=== PATIENT | female | born 2000 | race Caucasian/White ===

== ENCOUNTER 2022-12-08 20:25 | Outpatient (REF) | payer MEDICAID, SELFPAY ==
[2022-12-12 13:08] LABS: Age Gdln ACOG Testing Note (.); IGP, rfx Aptima HPV ASCU Note (.)
== END 2022-12-08 20:26 | disposition home or self-care (01) ==
LOC: LAB 20:25
PROVIDERS: PCP Nurse Practitioner Family; Visit Provider Physician Assistant
DX: Z12.4 Encounter for screening for malignant neoplasm of cervix (principal); Z11.51 Encounter for screening for human papillomavirus (HPV)
CPT/HCPCS: G0145

== ENCOUNTER 2024-01-20 12:35 | Emergency (ER) | payer MEDICAID, SELFPAY ==
[2024-01-20 12:38] VITALS: BP 119/81; PULSE 92; TEMP 36.8; O2SAT 99; BMI 48.8
[2024-01-20 13:04] LABS: Internal Control Within Normal Limits; Strep A Antigen Screen Negative
--- NOTE | 2024-01-20 13:09 | CT_ITS ---
The [address] [address] Patient Name: SAROJ MEMBRENO MRN: [id number] date: 2000 Sex: F Assigned Patient Location: Current Patient Location: Accession/Order Number: [id number] Exam Date: 01/20/2024 14:10 Report Date: 01/20/2024 17:13 At the request of: TWAN DODD Procedure: CT soft tissue neck w con CT NECK with CONTRAST, 01/20/2024. HISTORY: Sore throat. Difficulty swallowing. COMPARISON: None. TECHNIQUE: Postcontrast axial CT images obtained through the neck. Reconstructions obtained in the sagittal and coronal planes. Dose reduction techniques were achieved by using automated exposure control and/or adjustment of mA and/or kV according to patient size and/or use of iterative reconstruction technique. FINDINGS: Visualized intracranial contents unremarkable. Paranasal sinuses clear. Middle ear cavities and mastoid air cells are clear. Final Rail Cutter spaces are normal. Parotid glands normal. Submandibular glands are normal. The tongue and floor of the mouth are normal. Nasopharynx is normal. The tonsils are enlarged bilaterally and have prominent enhancement. No intratonsillar abscess. There is no abscess in the parapharyngeal space or retropharyngeal space. Epiglottis is normal. No laryngeal edema. Vocal cords are symmetric. Thyroid gland normal. Visualized portion of the trachea and esophagus normal. Vascular structures are unremarkable. Multiple mildly enlarged reactive lymph nodes in the upper neck bilaterally. No masses. Cervical spine is unremarkable. CT/CT soft tissue neck w con IMPRESSION: 1. Acute tonsillitis. The tonsils are enlarged bilaterally and have prominent enhancement. 2. There is no abscess. 3. Reactive lymphadenopathy in the upper neck bilaterally. Electronically authenticated by: CHIARA BAUTISTA Date: 01/20/2024 17:13
--- NOTE | 2024-01-20 13:10 | ED.URI1 ---
HPI - URI/Sore Throat General Chief Complaint: Upper Respiratory Infection Stated Complaint: SORE THROAT Time Seen by Provider: 01/20/24 13:05 Source: patient History of Present Illness HPI Narrative: This patient is a 24-year-old female sent to the emergency department from urgent care for evaluation of difficulty swallowing. Patient reports throat swelling, difficulty swallowing since yesterday. No objective fevers, no vomiting or diarrhea. She states she has significant pain with swallowing and has been unable to do so. She states she is not able to swallow her saliva although she is noted being able to speak easily with no drooling or difficulty tolerating her secretions and initial interview. She has not taken any medications. She states she has not had anything to eat or drink today. She is not concerned for . Patient was unable to be examined at urgent care so they sent the patient to the ER. Related Data Home Medications ?Medication ?Instructions ?Recorded ?Confirmed trazodone 50 mg tablet 50 mg PO QPM PRN sleep 01/20/24 01/20/24 Previous Rx's ?Medication ?Instructions ?Recorded ketorolac 10 mg tablet 10 mg PO TID PRN pain #10 tabs 01/20/24 prednisone 20 mg tablet See Rx Instructions .Route 01/20/24 .COMPLEX #12 tabs Allergies Allergy/AdvReac Type Severity Reaction Status Date / Time No Known Drug Allergies Allergy Verified 01/20/24 12:43 Review of Systems ROS Constitutional Denies: fever or chills Ears, nose, mouth, and throat Reports: throat pain; Denies: neck pain or nasal congestion Cardiovascular Denies: chest pain Respiratory Denies: shortness of breath or cough Gastrointestinal Denies: nausea, vomiting or diarrhea Integumentary/Breast Denies: rash Neurological Denies: headache Hematologic/Lymphatic Denies: easy bruising or easy bleeding Exam Narrative Exam Narrative: Gen.: Awake, alert, in no distress Head: Normocephalic, atraumatic ENT: Moist mucous membranes, uvula is midline with airway open and patent. Mild tonsillar edema with left tonsil slightly larger than the right tonsil. No exudate. No trismus or drooling. Respiratory: No respiratory distress Extremities: Moves extremities equally Psych: Normal mood and affect Neuro: No focal neuro deficit Skin: Warm, dry, intact Constitutional Vital Signs, click to edit/add: Last Vital Signs Temp 98.2 F 08/28/24 12:38 Pulse 92 H 01/20/24 12:38 Resp 22 H 01/20/24 12:38 BP 119/81 01/20/24 12:38 Pulse Ox 99 01/20/24 12:38 O2 Del Method Room Air 01/20/24 12:38 Course Vital Signs Vital signs: Vital Signs Temperature 98.2 F 01/20/24 12:38 Pulse Rate 92 H 01/20/24 12:38 Respiratory Rate 22 H 01/20/24 12:38 Blood Pressure 119/81 01/20/24 12:38 Pulse Oximetry 99 01/20/24 12:38 Oxygen Delivery Method Room Air 01/20/24 12:38 Temperature 98.2 F 01/20/24 12:38 Pulse Rate 92 H 01/20/24 12:38 Respiratory Rate 22 H 01/20/24 12:38 Blood Pressure 119/81 01/20/24 12:38 Pulse Oximetry 99 01/20/24 12:38 Oxygen Delivery Method Room Air 01/20/24 12:38 MDM - URI/Sore Throat MDM Narrative Medical decision making narrative: Patient with a benign exam, exam is consistent with tonsillitis, as the patient is stating that she cannot tolerate her secretions or swallow, she was sent for CT showing tonsillitis with no evidence of abscess. Patient with leukocytosis, negative strep screen and negative monoscreen. Symptoms have been present for 1 day so we will avoid antibiotics at this time until strep culture results. Patient placed on prednisone and BMX solution for home. Patient is in no distress, no evidence of any airway compromise or respiratory difficulty at this time. Follow-up with PCP and return to the ER if symptoms change or worsen. SUPERVISED APC VISIT, PHYSICIAN ATTESTATION: Based on the medical record the care appears appropriate. ? Medical Records Attestation: I reviewed the patient's medical records. Lab Data Attestation: I reviewed the patient's lab results. Labs: Lab Results 01/20/24 01/20/24 Range/Units 12:43 13:15 WBC 15.9 H (4.0-11.0) 10^3/uL RBC 5.25 (4.20-5.40) 10^6/uL Hgb 15.8 (12.0-16.0) g/dL Hct 46.3 (36.0-48.0) % MCV 88.2 (81.0-99.0) fL MCH 30.1 (26.7-34.0) pg MCHC 34.1 (29.9-35.2) g/dL RDW 12.2 (11.0-15.0) % Plt Count 267 (150-450) 10^3/uL MPV 9.6 (9.5-13.5) fL Neut % (Auto) 85.1 H (43.0-75.0) % Lymph % (Auto) 8.3 L (20.5-60.0) % [place] % (Auto) 5.8 (1.7-12.0) % Eos % (Auto) 0.1 L (0.9-7.0) % Baso % (Auto) 0.3 (0.2-2.0) % Neut # (Auto) 13.5 H (1.4-6.5) 10^3/uL Lymph # (Auto) 1.3 (1.2-3.8) 10^3/uL Jasper # (Auto) 0.9 H (0.3-0.8) 10^3/uL Eos # (Auto) 0.0 (0.0-0.7) 10^3/uL Baso # (Auto) 0.1 (0.0-0.1) 10^3/uL Abs Immat Gran (auto) 0.06 H (0.00-0.03) 10^3/uL Imm/Tot Granulo (auto) 0.4 (0.0-0.5) % Monoscreen Negative (NEGATIVE) Streptococcus Screen Negative Imaging Data CT neck: Attestation: I have reviewed the pertinent imaging results. Radiologist's impression: ITS Impressions Soft Tissue Neck CT 01/20/24 13:09 IMPRESSION: 1. Acute tonsillitis. The tonsils are enlarged bilaterally and have prominent enhancement. 2. There is no abscess. 3. Reactive lymphadenopathy in the upper neck bilaterally. Electronically authenticated by: CHIARA BAUTISTA Date: 01/20/2024 14:35 Discharge Plan Discharge Stand Alone Forms: Work/School Release, Portal Instructions Chief Complaint: Upper Respiratory Infection Clinical Impression: Acute tonsillitis Patient Disposition: Home, Self-Care Time of Disposition Decision: 14:38 Condition: Good Prescriptions / Home Meds: New prednisone 20 mg tablet See Rx Instructions .ROUTE .COMPLEX Qty: 12 0RF Rx Instructions: 3 tabs daily for 2 days, then 2 tabs daily for 2 days, then 1 tab daily for 2 days ketorolac 10 mg tablet 10 mg PO TID PRN (Reason: pain) Qty: 10 0RF No Action trazodone 50 mg tablet 50 mg PO QPM PRN (Reason: sleep) Print Language: Ukrainian Instructions: Tonsillitis (ED) Referrals: RICKEY OCHOA [Primary Care Provider] - 1 week
[2024-01-20] MEDS: KETOROLAC TROMETHAMINE 30 MG/ML VIAL IVP (13:28)
[2024-01-20] MEDS: DEXAMETHASONE SOD PHOS 10 MG/ML VIAL IV (13:28)
[2024-01-20] MEDS: 0.9 % SODIUM CHLORIDE 1,000 ML 1000 ML IV (13:28)
[2024-01-20 13:40] LABS: Basophils Absolute Auto 0.1 10^3/uL (0.0-0.1); Basophils Percent Auto 0.3 % (0.2-2.0); Eosinophils Percent Auto 0.1 % (0.9-7.0); Hematocrit 46.3 % (36.0-48.0); Hemoglobin 15.8 g/dL (12.0-16.0); Immature Granulocytes Abs Auto 0.06 10^3/uL (0.00-0.03); Immature Granulocytes Pct Auto 0.4 % (0.0-0.5); Lymphocytes Absolute Auto 1.3 10^3/uL (1.2-3.8); Lymphocytes Percent Auto 8.3 % (20.5-60.0); Mean Corpuscular HGB Conc 34.1 g/dL (29.9-35.2); Mean Corpuscular Hemoglobin 30.1 pg (26.7-34.0); Mean Corpuscular Volume 88.2 fL (81.0-99.0); Mean Platelet Volume 9.6 fL (9.5-13.5); Monocytes Absolute Auto 0.9 10^3/uL (0.3-0.8); Monocytes Percent Auto 5.8 % (1.7-12.0); Neutrophils Absolute Auto 13.5 10^3/uL (1.4-6.5); Neutrophils Percent Auto 85.1 % (43.0-75.0); Platelet Count 267 10^3/uL (150-450); Red Blood Count 5.25 10^6/uL (4.20-5.40); Red Cell Distribution Width 12.2 % (11.0-15.0); White Blood Count 15.9 10^3/uL (4.0-11.0)
[2024-01-20 13:48] LABS: Internal Control Within Normal Limits; Mono Screen NEGATIVE (NEGATIVE)
[2024-01-20 15:07] VITALS: PULSE 78; O2SAT 100
== END 2024-01-20 15:07 | disposition home or self-care (01) ==
PROVIDERS: Physician Assistant; Emergency Provider Emergency Medicine; PCP Nurse Practitioner Family
DX: J03.90 Acute tonsillitis, unspecified (principal)
CPT/HCPCS: 36415; 70491; 85025; 86308; 87070; 87150; 87880; 96374; 96375; 99285; J1100; J1885; Q9967

== ENCOUNTER 2024-05-05 21:11 | Emergency (ER) | payer MEDICAID, SELFPAY ==
--- OUTSIDE RECORDS SUMMARY | 2024-05-05 22:11 | XMS_ITS | CCD ---
Author Organization [facility] Care Team Providers Care Optics Test Technician Name Role Phone Maria R Disla Unavailable Radhika Enrique Unavailable NON STAFF Primary Care Provider [facility] Michelle Hardwick Emergency Provider 1( [phone] FRANCISCO J Enrique Attending Provider MARIA R DISLA Primary Care Unavailable ANTON, DR GUILHERME Blackburn Admitting Unavailable ANTON, DR GUILHERME Blackburn Attending Unavailable EMMA .ONIEL Consulting Unavailable NAIF, MARIA R Primary Care Unavailable SARWAT IVANID Admitting Unavailable WAQAR IVAN Attending Unavailable NAIF, MARIA R Primary Care Unavailable MONCHO, WAQAR Admitting Unavailable MONCHO, WAQAR Attending Unavailable GLO BRANDON Consulting Unavailable MONCHO, WAQAR Consulting Unavailable NAIF, MARIA R Primary Care Unavailable MONCHO, WAQAR Admitting Unavailable WAQAR IVAN Attending Unavailable MONCHO, WAQAR Consulting Unavailable NAIF, MARIA R Primary Care Unavailable PAY ., DR PEARSON Admitting Unavailable PAY ., DR PEARSON Attending Unavailable PAY ., DR PEARSON Consulting Unavailable Naif NGUYỄN, Maria R Unavailable [phone] SASHA XIE Attending Unavailable NEO, ALLIE Referring Unavailable NEO, ALLIE Referring Unavailable SHELLY PARSONS Attending Unavailable FAISAL TOMS Referring Unavailable NETTA DILLARD Attending Unavailable NEO, ALLIE Referring Unavailable NEO ALLIE Attending Unavailable MALONE TOMS Attending Unavailable NEO, ALLIE Referring Unavailable ONIEL CARTER Attending Unavailable NON STAFF Primary Care Provider UnavailISRAEL Torres Attending Provider ISRAEL Christie Attending Provider ISRAEL Alas Attending Provider Glo Alas Attending Unavailable Glo Alas Admitting Unavailable NON STAFF Primary Care Unavailable Manjula Nevarez Admitting Unavailable NON STAFF Primary Care Unavailable Manjula Nevarez Attending Unavailable MARIA R DISLA Attending Unavailable MARIA R DISLA Admitting Unavailable MARZENA MARTINEZ Attending Unavailable MARZENA MARTINEZ Admitting Unavailable MARIA R DISLA Attending Unavailable MARIA R DISLA Admitting Unavailable Medications Current Medications Medication Drug Class(es) Dates Sig (Normalized) Sig (Original) [id number] 200 actuat albuterol 0.09 mg/actuat metered dose inhaler (14 sources) beta2-Adrenergic Agonist Start: 12-25-2020 take 2 puff(s) by inhalation every four hours as needed Albuterol Sulfate HFA 108 (90 Base) MCG/ACT 2 puffs as needed Inhalation every 4 hrs Dec, Active Start: 12-25-2020 take 2 puff(s) by in halation every four hours as needed Albuterol Sulfate HFA 108 (90 Base) MCG/ACT 2 puffs as needed Inhalation every 4 hrs Dec, Active Start: 12-25-2020 amoxicillin 875 mg oral tablet (6 sources) Penicillin-class Antibacterial Start: 03-07-2021 take 1 tablet by mouth every twelve hours Amoxicillin 875 MG 1 tablet Orally every 12 hrs for 7 days Feb, Active ARIPiprazole 5 mg oral tablet (20 sources) Atypical Antipsychotic Start: 02-26-2021 take 1 tablet by mouth every twenty-four hours ARIPiprazole 5 MG 1 tablet Orally Once a day for 30 days Feb, Active Start: 02-26-2021 take 1 tablet by rhona th every twenty-four hours ARIPiprazole 2 MG 1 tablet Orally Once a day for 30 days Feb, Active Comment on above: Take 1 tablet by rhona th once daily. benzoyl peroxide 100 mg/ml medicated liquid soap (9 sources) Start: 023 Benzoyl Peroxide 10 % external wash Apply 1 Application to affected area once daily. 09/22/2022 Active Comment on above: Apply 1 Application to affected area once daily. clindamycin 10 mg/ml topical solution (9 sources) Lincosamide Antibacterial Start: clindamycin (CLEOCIN) 1 % external solution Apply 1 Application to affected area once daily. 10/27/2022 Active Comment on above: Apply 1 Application to affected area once daily. cyclobenzaprine hydrochloride 10 mg oral tablet (20 sources) Muscle Relaxant Start: take 10 mg by mouth once daily Cyclobenzaprine Active 10 MG PO Daily September 16, 2023 12:00am Start: 03-16-2020 take 1 tablet by rhona every eight hours Cyclobenzaprine HCl 5 MG 1 tablet as needed Orally Three times a day Feb, Not-Taking 24 hr desvenlafaxine succinate 25 mg extended release oral tablet (5 sources) Serotonin and Norepinephrine Reuptake Inhibitor Start: 11-26-2021 take 1 tablet by mouth every twenty-four hours Pristiq 25 MG 1 tablet Orally Once a day for 30 day(s) Nov, Active doxycycline hyclate 100 mg oral capsule (9 sources) Tetracycline-class Drug Start: 09-22-2022 take 1 capsule by mouth once daily doxycycline hyclate (VIBRAMYCIN) 100 mg capsule Take 1 capsule by mouth once daily. 09/22/2022 Active Comment on above: Take 1 capsule by mo [facility] once daily. etonogestrel 68 mg drug implant (20 sources) Progestin Start: 11-17-2022 etonogestrel (NEXPLANON) subdermal implant 68 mg 1 Each by SUBDERMAL route. 11/17/2022 Active Nexplanon Active Comment on above: 1 Each by SUBDERMAL route. fluconazole 150 mg oral tablet (1 source) Azole Antifungal Start: 02-02-2024 Fluconazole Active 150 MG PO Q3D 2 0 February 02, 2024 12:00am may repeat x 1 in 3 days if needed hydrOXYzine hydrochloride 10 mg oral tablet (14 sources) Antihistamine Start: 10-14-2021 hydrOXYzine HCl 10 MG 1 tablet as needed Orally at bedtime for 30 day(s) September, Active Start: 10-14-2021 hydrOXYzine HC l 25 MG 1 tablet as needed Orally at bedtime for 30 day(s) September, Active nitrofurantoin, macrocrystals 25 mg / nitrofurantoin, monohydrate 75 mg oral capsule (2 sources) Nitrofuran Antibacterial Start: 07-07-2022 take 1 capsule by mouth every twelve hours Macrobid 100 MG 1 cap(s) Orally 2 times a day for 5 day(s) Jun, Active phenazopyridine hydrochloride 200 mg oral tablet (2 sources) Start: 07-07-2022 take 1 tablet by mouth every eight hours Pyridium 200 MG 1 tablet after meals Orally Three times a day for 2 day(s) Jun, Active spironolactone 50 mg oral tablet (9 sources) Aldosterone Antagonist take 1 tablet by mouth once daily spironolactone (ALDACTONE) 50 mg tablet Take 1 tablet by mouth once daily. Active Comment on above: [facility] traZODone hydrochloride 50 mg oral tablet (6 sources) Serotonin Reuptake Inhibitor Start: 09-16-2023 take 50 mg by mouth once daily Trazodone Active 50 MG PO Daily September 16, 2023 12:00am 24 hr venlafaxine 37.5 mg extended release oral capsule (14 sources) Serotonin and Norepinephrine Reuptake Inhibitor Start: 02-28-2020 take 1 capsule by mouth every twenty-four hours Effexor XR 37.5 MG 1 capsule with food Orally Once a day for 30 days Feb, Active Start: 11-28-2019 take 1 capsule by mo [facility] every twenty-four hours Effexor XR 75 MG 1 capsule with food Orally Once a day for 30 days patient lost presciption Nov, Active Completed/Discontinued Medications Medication Drug Class(es) Dates Sig (Normalized) Sig (Original) cefdinir 300 mg oral capsule (6 sources) Cephalosporin Antibacterial Start: 09-16-2023 End: 11-13-2023 take 300 mg by mouth twice daily Cefdinir Discontinued 300 MG PO Twice daily 14 7 September 16, 2023 12:00am November 13, 2023 10:35am minocycline 100 mg oral capsule (6 sources) Tetracycline-class Drug Start: 09-16-2023 End: 01-20-2024 take 1 mg by mouth once daily Minocycline Discontinued MG PO Daily September 16, 2023 12:00am January 20, 2024 12:02pm valACYclovir 1000 mg oral tablet (5 sources) Herpesvirus Nucleoside Analog DNA Polymerase Inhibitor, Herpes Simplex Virus Nucleoside Analog DNA Polymerase Inhibitor, Herpes Zoster Virus Nucleoside Analog DNA Polymerase Inhibitor Start: 01-27-2022 take 1 tablet by mouth every eight hours Valtrex 1 GM 1 tablet Orally 3 times a day for 7 days Jan, Not-Taking take 1 tablet by mouth every twe lve hours Valtrex 1 GM 1 tablet Orally twice a day for 7 days Active Problems Active Problems Problem Classification Problem Date Documented Da te Episodic/Chronic Administrative/social admission (1 source) Dietary counseling and surveillance; Translations: [Dietary counseling and surveillance] Onset: 02-04-2023 Episodic Anxiety disorders (20 sources) Generalized anxiety disorder; Translations: [Generalized anxiety disorder] Onset: 02-26-2021 Resolved: 11-26-2021 Chronic Asthma (20 sources) Exacerbation of asthma; Translations: [Asthma exacerbation] Onset: 01-19-2023 01-19-2023 Chronic Attention-deficit, conduct, and disruptive behavior disorders (1 source) Attention-deficit hyperactivity disorder, unspecified type; Translations: [ADHD UNSPECIFIED TYPE] Onset: 09-23-2022 Chronic Attention-deficit, conduct, and disruptive behavior disorders (15 sources) Attention deficit hyperactivity disorder; Translations: [Attention-deficit hyperactivity disorder, unspecified type] Onset: 01-19-2023 01-19-2023 Chronic Fracture of lower limb (14 sources) Nondisplaced fracture of fifth metatarsal bone, left foot, subsequent encounter for fracture with routine healing; Translations: [Closed nondisplaced fracture of fifth metatarsal bone of left foot with routine healing, subsequent encounter] Episodic Genitourinary symptoms and ill-defined conditions (1 source) Frequency of micturition Episodic Inflammatory diseases of female pelvic organs (1 source) Acute vaginitis; Translations: [ACUTE VAGINITIS] Onset: 09-23-2022 Episodic Intestinal infection (1 source) Viral intestinal infection, unspecified; Translations: [VIRAL INTESTINAL INFECTION UNSPEC] Onset: 09-23-2022 Episodic Mood disorders (15 sources) Depressive disorder; Translations: [Depression] Onset: 01-19-2023 01-19-2023 Chronic Open wounds of extremities (1 source) Laceration without foreign body of right middle finger without damage to nail, initial encounter Episodic Other connective tissue disease (3 sources) Myalgia, unspecified site Onset: 05-28-2021 Resolved: 08-18-2021 Episodic Other female genital disorders (1 source) Vaginal discharge; Translations: [Other specified noninflammatory disorders of vagina] 02-02-2024 Episodic Other female genital disorders (2 sources) Other specified noninflammatory disorders of vagina; Translations: [Leukorrhea, not specified as infective] Onset: 02-02-2024 02-02-2024 Episodic Other gastrointestinal disorders (3 sources) Diarrhea, unspecified; Translations: [DIARRHEA UNSPECIFIED] Onset: 09-20-2022 Episodic Other injuries and conditions due to external causes (5 sources) Injury of right leg; Translations: [Unspecified injury of right ankle, initial encounter] 11-13-2023 Episodic Other injuries and conditions due to external causes (1 source) Unspecified injury of right ankle, initial encounter; Translations: [Unspecified injury of right ankle, initial encounter] Onset: 11-13-2023 Episodic Other injuries and conditions due to external causes (1 source) Unspecified injury of right foot, initial encounter; Translations: [Unspecified injury of right foot, initial encounter] Onset: 11-13-2023 Episodic Other nutritional; endocrine; and metabolic disorders (14 sources) Obesity; Translations: [Obesity, unspecified] Chronic Other nutritional; endocrine; and metabolic disorders (1 source) Obesity, unspecified; Translations: [OBESITY UNSPECIFIED] Onset: 09-24-2022 Chronic Other nutritional; endocrine; and metabolic disorders (1 source) Body mass index (BMI) 45.0-49.9, adult; Translations: [BODY MASS INDEX BMI 45.0-49.9 ADULT] Onset: 09-24-2022 Chronic Other nutritional; endocrine; and metabolic disorders (5 sources) Severe obesity; Translations: [Morbid (severe) obesity due to excess calories] 01-19-2023 Chronic Other nutritional; endocrine; and metabolic disorders (10 sources) Body mass index 40+ - severely obese; Translations: [Morbid (severe) obesity due to excess calories] Onset: 01-19-2023 01-19-2023 Chronic Other nutritional; endocrine; and metabolic disorders (3 sources) Body mass index (BMI) 40.0-44.9, adult; Translations: [Body mass index (BMI) 40.0-44.9, adult ([facility])] Onset: 01-30-2023 Chronic Other nutritional; endocrine; and metabolic disorders (2 sources) Morbid (severe) obesity due to excess calories; Translations: [Class 3 severe obesity with serious comorbidity and body mass index (BMI) of 40.0 to 44.9 in adult, unspecified obesity type (HCC)] Onset: 01-30-2023 Chronic Other skin disorders (1 source) Follicular disorder, unspecified; Translations: [FOLLICULAR DISORDER UNSPECIFIED] Onset: 09-24-2022 Episodic Other upper respiratory infections (4 sources) Acute pharyngitis; Translations: [Acute pharyngitis, unspecified] 01-20-2024 Episodic Otitis media and related conditions (3 sources) Otitis media, unspecified, right ear; Translations: [Unspecified otitis media] 09-16-2023 Episodic Residual codes; unclassified (13 sources) Insomnia; Translations: [Insomnia, unspecified] 09-16-2023 Episodic Residual codes; unclassified (8 sources) Patient encounter status; Translations: [Procedure and treatment not carried out due to patient leaving prior to being seen by health care provider] 07-04-2022 Episodic Residual codes; unclassified (1 source) Nicotine-filled electronic cigarette user; Translations: [Tobacco use] 01-19-2023 Episodic Residual codes; unclassified (1 source) Tobacco use; Translations: [Vapes nicotine containing substance] Onset: 01-19-2023 Episodic Skin and subcutaneous tissue infections (4 sources) Cutaneous abscess of groin; Translations: [CUTANEOUS ABSCESS OF GROIN] Onset: 09-23-2022 Episodic Sprains and strains (10 sources) Sprain of right ankle; Translations: [Sprain of unspecified ligament of right ankle, initial encounter] 11-13-2023 Episodic Substance-related disorders (1 source) Nicotine dependence, cigarettes, uncomplicated; Translations: [NICOTINE DEPEND CIGARETTES UNCOMP] Onset: 09-23-2022 Chronic Substance-related disorders (2 sources) Marijuana user; Translations: [Cannabis use, unspecified, uncomplicated] Onset: 01-19-2023 01-19-2023 Episodic Syncope (6 sources) Syncope; Translations: [Syncope and collapse] 09-16-2023 Episodic Systemic lupus erythematosus and connective tissue disorders (6 sources) Lupus erythematosus; Translations: [Systemic lupus erythematosus, unspecified] 09-16-2023 Chronic Urinary tract infections (1 source) Urinary tract infection, site not specified Episodic Past or Other Problems Problem Classification Problem Date Documented Date Episodic/Chronic Immunizations and screening for infectious disease (2 sources) Contact with and (suspected) exposure to other viral communicable diseases; Translations: [Encounter for screening for other viral diseases] Onset: 03-30-2021 Resolved: 06-21-2021 Episodic Open wounds of head; neck; and trunk (1 source) Puncture wound without foreign body of lip, initial encounter; Translations: [Puncture wound without foreign body of lip, initial encounter S01.531A] Onset: 03-07-2021 Resolved: 03-07-2021 Episodic Other aftercare (1 source) 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; Translations: [[employer] CURRENT DRUG THERAPY] Onset: 01-15-2022 Episodic Other inflammatory condition of skin (4 sources) Pruritus, unspecified; Translations: [PRURITUS UNSPECIFIED] Onset: 10-28-2021 Episodic Other skin disorders (4 sources) Follicular cyst of the skin and subcutaneous tissue, unspecified; Translations: [FOLLICULAR CYST SKIN SUBQ TISS UNS] Onset: 01-14-2022 Episodic Residual codes; unclassified (2 sources) Insomnia, unspecified Onset: 10-14-2021 Resolved: 11-26-2021 Episodic Residual codes; unclassified (4 sources) Procedure and treatment not carried out due to patient leaving prior to being seen by health care provider; Translations: [PROC AND TX NOT CARRIED OUT PT LEAVE] Onset: 05-01-2022 Episodic Viral infection (2 sources) Zoster without complications Onset: 11-11-2021 Resolved: 01-27-2022 Episodic Results Test Name Value Interpretation Reference Range Facility HAILEE w/Reflex if POSon 2023 Nuclear Ab Ql (S) Negative Invalid Interpretation Code Negative [facility] Comment on above: Result Comment: Perf ormed at: [facility] [address] [id number] PhD Fara Braswell Performed By: #### 1 [id number] #### [facility] [address] [place] [address] Cortisolon 03-24-2024 Cortisol [Mass/Vol] 15.2 microgram/dL Invalid Interpretation Code 6.2-19.[address] [facility] Comment on above: Result Comment: Plea se Note: The reference interval and flagging for this test is for an AM collection. If this is a PM collection please use: Cortisol PM: 2.3-11.9 Performed at: [address] [id number] PhD Fara Braswell Performed By: #### 2 [id number] #### [facility] [address] [place] [address] FSH and LHon 03-24-2024 Follitropin Qn 7.7 m[IU]/mL Invalid Interpretation Code [facility] Comment on above: Result Comment: Adul t Female Range Follicular phase 3.5 - 12.5 Ovulation phase 4.7 - 21.5 Luteal phase 1.7 - 7.7 Postmenopausal 25.8 - 134.8 Performed at: [address] [id number] PhD Fara Braswell Performed By: #### 1 [id number] #### [facility] [address] [place] [address] Lutropin Qn 8.6 m[IU]/mL Invalid Interpretation Code [facility] Comment on above: Result Comment: Adul t Female Range Follicular phase 2.4 - 12.6 Ovulation phase 14.0 - 95.6 Luteal phase 1.0 - 11.4 Postmenopausal 7.7 - 58.5 Performed By: #### 1 [id number] #### [facility] [address] [place] [address] Insulin Lvlon 03-24-2024 Insulin Qn 9.4 u[IU]/mL Invalid Interpretation Code 2.6-24.[address] [facility] Comment on above: Result Comment: Perf ormed at: [address] [id number] PhD Fara Braswell Performed By: #### 1 [id number] #### [facility] [address] [place] [address] RF Quanton 03-24-2024 Rheumatoid factor Qn [IU]/mL Invalid Interpretation Code <14.[address] [facility] Comment on above: Result Comment: Perf ormed at: [facility] [address] [place], [place] [id number] PhD Fara Braswell Performed By: #### 1 [id number] #### [facility] [address] [place] [address] T3 Totalon 03-24-2024 T3 [Mass/Vol] 131 ng/dL Invalid Interpretation Code 71-[address] [facility] Comment on above: Result Comment: Perf ormed at: [facility] [address] [place], [place] [id number] PhD Fara Braswell Performed By: #### 1 [id number] #### [facility] [address] [place] [address] CMPon 03-23-2024 Albumin [Mass/Vol] 4.3 g/dL Normal 3.3-5.[address] [facility] Comment on above: Performed By: #### 2 [id number] #### [facility] [address] [place] [address] Albumin/Globulin (S) [Mass conc ratio] 1.4 Normal 1.1-2.[address] [facility] Comment on above: Performed By: #### 2 [id number] #### [facility] [address] [place] [address] ALP [Catalytic activity/Vol] 82 Int._Unit/L Normal 21-[address] [facility] Comment on above: Performed By: #### 2 [id number] #### [facility] [address] [place] [address] ALT No additional P-5'-P [Catalytic activity/Vol] 13 Int._Unit/L Normal 6-[address] [facility] Comment on above: Performed By: #### 2 [id number] #### [facility] [address] [place] [address] Anion gap [Moles/Vol] 11 mmol/L Normal 6-[address] [facility] Comment on above: Performed By: #### 2 [id number] #### [facility] [address] [place] [address] AST [Catalytic activity/Vol] 16 Int._Unit/L Normal 5-[address] [facility] Comment on above: Performed By: #### 2 [id number] #### [facility] [address] [place] [address] Bilirubin [Mass/Vol] 0.8 mg/dL Normal 0.0-1.1 [facility] Comment on above: Performed By: #### 2 [id number] #### [facility] [address] [place] [address] Calcium [Mass/Vol] 9.4 mg/dL Normal 8.9-11.[address] [facility] Comment on above: Performed By: #### 2 [id number] #### [facility] [address] [place] [address] Chloride [Moles/Vol] 104 mmol/L Normal 101-111 [facility] Comment on above: Performed By: #### 2 [id number] #### [facility] [address] [place] [address] CO2 [Moles/Vol] 27 mmol/L Normal 21-31 [facility] Comment on above: Performed By: #### 2 [id number] #### [facility] [address] [place] [address] Creatinine [Mass/Vol] 0.7 mg/dL Normal 0.5-1.[address] [facility] Comment on above: Performed By: #### 2 [id number] #### [facility] [address] [place] [address] Globulin (S) [Mass/Vol] 3.0 g/dL Normal 1.4-4.[address] [facility] Comment on above: Performed By: #### 2 [id number] #### [facility] [address] [place] [address] Glucose [Mass/Vol] 89 mg/dL Normal 55-[address] [facility] Comment on above: Performed By: #### 2 [id number] #### [facility] [address] [place] [address] Potassium [Moles/Vol] 4.1 mmol/L Normal 3.5-5.[address] [facility] Comment on above: Performed By: #### 2 [id number] #### [facility] [address] [place] [address] Protein [Mass/Vol] 7.3 g/dL Normal 6.0-7.[address] [facility] Comment on above: Performed By: #### 2 [id number] #### [facility] [address] [place] [address] Sodium [Moles/Vol] 138 mmol/L Normal 135-[address] [facility] Comment on above: Performed By: #### 2 [id number] #### [facility] [address] [place] [address] Urea nitrogen [Mass/Vol] 10 mg/dL Normal 5-[address] [facility] Comment on above: Performed By: #### 2 [id number] #### [facility] [address] [place] [address] Urea nitrogen/Creatinine [Mass ratio] 14 No Units Normal 10-[address] [facility] Comment on above: Performed By: #### 2 [id number] #### [facility] [address] [place] [address] [id number] 03-23-2024 HbA1c (Bld) [Mass fraction] 5.1 % Normal <=5.[address] [facility] Comment on above: Performed By: #### 7 [id number] #### [facility] [address] [place] [address] Lipid Panelon 03-23-2024 Cholesterol [Mass/Vol] 153 mg/dL Normal 120-[address] [facility] Comment on above: Performed By: #### 2 [id number] #### [facility] [address] [place] [address] Cholesterol in HDL [Mass/Vol] 45 mg/dL Invalid Interpretation Code [facility] Comment on above: Result Comment: '>= 60 LOW RISK' '<= 40 HIGH RISK' Performed By: #### 2 [id number] #### [facility] [address] [place] [address] Cholesterol in LDL [Mass/Vol] 102 mg/dL Normal <=[address] [facility] Comment on above: Performed By: #### 2 [id number] #### [facility] [address] [place] [address] Cholesterol in VLDL [Mass/Vol] 26 mg/dL Normal 7-[address] [facility] Comment on above: Performed By: #### 2 [id number] #### [facility] [address] [place] [address] Triglyceride [Mass/Vol] 129 mg/dL Normal <=[address] [facility] Comment on above: Performed By: #### 2 [id number] #### [facility] [address] [place] [address] T4 & TSHon 03-23-2024 TSH Qn 2.00 m[IU]/L Normal 0.34-5.[address] [facility] Comment on above: Performed By: #### 1 [id number] #### [facility] [address] [place] [address] T4 [Mass/Vol] 9.5 microgram/dL High 4.6-9.1 [facility] Comment on above: Performed By: #### 1 [id number] #### [facility] [address] [place] [address] eGFRon 03-23-2024 eGFR 124 mL/min/1.73 m2 Normal >=[address] [facility] Comment on above: Performed By: #### 1 [id number] #### [facility] [address] [place] [address] Vaginitis Plus (VG+)on 02-01 Atopobium Vaginae High - 2 Critically abnormal . [facility] Comment on above: Result Comment: This test was developed and its performance characteristics determined by [facility]. It has not been cleared or approved by the Food and Drug Administration. Performed By: #### V AGINITIS+ #### [facility] , BVAB2 Low - 0 Normal . [facility] Comment on above: Result Comment: This test was developed and its performance characteristics determined by [facility]. It has not been cleared or approved by the Food and Drug Administration. Performed By: #### V AGINITIS+ #### [facility] , Leeann Albicans, HANNY Negative Normal Negative [facility] Comment on above: Result Comment: This test was developed and its performance characteristics determined by [facility]. It has not been cleared or approved by the Food and Drug Administration. Performed By: #### V AGINITIS+ #### [facility] , Leeann Glabrata, HANNY Negative Normal Negative [facility] Comment on above: Result Comment: This test was developed and its performance characteristics determined by [facility]. It has not been cleared or approved by the Food and Drug Administration. PERFORMED BY: [address] [place] [address] PATHOLOGIST FINANCIAL SOLUTIONS ADVISOR AIDEN ALMONTE M.D. Performed By: #### V AGINITIS+ #### [facility] , Chlamydia Trachomotis, HANNY Negative Normal Negative [facility] Comment on above: Performed By: #### V AGINITIS+ #### [facility] , Megasphaera High - 2 Critically abnormal . [facility] Comment on above: Result Comment: This test was developed and its performance characteristics determined by [facility]. It has not been cleared or approved by the Food and Drug Administration. Calculate total score by adding the 3 individual bacterial vaginosis (BV) marker scores together. Total score is interpreted as follows: Total score 0-1: Indicates the absence of BV. Total score 2: Indeterminate for BV. Additional clinical data should be evaluated to establish a diagnosis. Total score 3-6: Indicates the presence of BV. Performed By: #### V AGINITIS+ #### [facility] , Neisseria Gonorrhoeae, HANNY Negative Normal Negative [facility] Comment on above: Result Comment: Perf ormed at: =G - [facility] [address] [id number] Faculty Support Coordinator: Allison Miller MD, Phone: [phone] Performed By: #### V AGINITIS+ #### [facility] , Tric Vag HANNY Negative Normal Negative The [facility] Comment on above: Performed By: #### V AGINITIS+ #### [facility] , No Panel InformationOrdered By: Manjula Nevarez on 01-20-2024 Quick Strep (POC) [facility] XR ankle RT min 3V*on 2023 XR ankle RT min 3V* [facility] [place] [address] XRay Report Signed Patient: Saroj Membreno MR#: [id number] : 2000 Acct:[id number] Age/Sex: 23 / F ADM Date: 11/13/23 Loc: XDUC Room: Type: [facility] Attending Dr: Manjula Nevarez APRN Copies to: Manjula Nevarez APRN Ordering Provider: Manjula Nevarez APRN Date of Service: 11/13/23 XR/XR ankle RT min 3V*: S99.911A - Unspecified injury of right ankle, initial enc... ([id number]) XR/XR foot RT min 3V*: S99.911A - Unspecified injury of right ankle, initial enc... XR foot RT min 3V*, XR ankle RT min 3V* 11/13/2023 10:46 AM SIGNS AND SYMPTOMS: Injury to right foot with pain laterally in the right foot and ankle PROTOCOL: Frontal, lateral, and oblique radiographs of the right foot and right ankle COMPARISON: None FINDINGS: Right ankle: The ankle mortise is preserved. There is no evidence of fracture or dislocation. There is soft tissue swelling which is greatest laterally. Right foot: The bones are in anatomic alignment. The joint spaces are preserved. There is no evidence of fracture or dislocation. No significant soft tissue swelling. XR/XR foot RT min 3V* IMPRESSION: Right ankle: No fracture. Soft tissue swelling is noted, greatest laterally. Right foot: No fracture. Impression dictated by: Guilherme Gar M.D.11/13/2023 11:39 AM Dictation Location: [address] By: JOHN 11/13/23 1139 Dictated By: Guilherme Gar II, MD 11/13/23 1128 Signed By: 11/13/23 1139 Normal [facility] BhG Quanton 06-30-2023 Beta hCG Qnt <1 Normal 1-[address] [facility] Comment on above: Result Comment: 'F N ON < 1 - 3' ' 0.2 - 1 WEEK = 5 TO 50' ' 1 - 2 WEEKS = 50 - 500' ' 2 - 3 WEEKS = 100 - 5000' ' 3 - 4 WEEKS = 500 - 43934' ' 4 - 5 WEEKS = 1000 - 53620' ' 5 - 6 WEEKS = 96313 - 168794' ' 6 - 8 WEEKS = 30899 - 712172' ' 8 - 12 WEEKS = 26147 - 236765' Performed By: #### 2 [id number] #### [facility] [address] [place] [address] Physician Orderon 06-30-2023 Physician Order [id number] Normal [facility] US ABD RIGHT UPPER QUADRANTo n 03-12-2023 US ABD RIGHT UPPER QUADRANT * * *Final Report* * * DATE OF EXAM: Mar 12 2023 7:32AM VHU 1032 - US ABD RIGHT UPPER QUADRANT / PROCEDURE REASON: multiple diagnoses * * * * Physician Interpretation * * * * EXAMINATION: RIGHT UPPER QUADRANT ULTRASOUND CLINICAL HISTORY: Preop for series obesity. TECHNIQUE: Sonography of the right upper quadrant was performed. Images were obtained and stored in a permanent archive. MQ: [id number] COMPARISON: None. RESULT: Pancreas: Normal sonographic appearance. Portions obscured: tail Liver: Echotexture: Normal, homogeneous. Echogenicity: Normal Surface contour: Smooth Lesions: None. Biliary: No intrahepatic biliary duct dilation. CBD: 0.3 cm at the hilum. Gallbladder: Unremarkable. Right Kidney: No hydronephrosis. Ascites: None. IMPRESSION: No acute findings. Buffing Wheel Former Automatic: DOC Transcribe Date/Time: Mar 13 2023 11:44A Dictated by : TANNER RAMSEY MD This examination was interpreted and the report reviewed and electronically signed by: TANNER RAMSEY MD on Mar 13 2023 11:49AM EST [id number] [facility] SURGICAL PATHOLOGYOrdered By : Ayan Donaldson on 03-05-2023 Case Report Surgical Pathology R eport Case: [id number] Authorizing Provider: Shelly Parsons DO Collected: 03/03/2023 10:24 AM Ordering Location: Ambulatory Surgery Received: 03/03/2023 10:41 PM Pathologist: Ayan Donaldson MD Specimens: A) - SMALL INTESTINE BIOPSY, r/o celiac B) - STOMACH BIOPSY, r/o h pylori C) - STOMACH (GASTRIC) POLYP BIOPSY, polyps [facility] Work Phone: Diagnosis Comment t7xsyPQqYYCxyEOlDQBz M1xhb mGaKULwaPBhC9ZrylzsKTapGG 4xHM9afVtqoRVucJUlOHYqEiW az9aum893iTWlg5pgZZEAybmb bHu7pXwuW80st9E7ShsoF42do FDhPEU9EYUeMYUkhEBlZVEwZQ N2SGGajGCkO5qrDBTcXB9rgrn gCNkhNVroZRLqdKG1ZDKlwKPk M3MxPJBhJTqqLWFiaeb5FxFrM y2wsZFcjCeiCSqfDGVoIBBbPA joJYIjRnGmMeuyPw4fHu8nRJG utXHpQkVfbTApPWM4mM8jiOGm wspkzbgpnEIgSVWbQAemOD15q UDvPFGeDI8vZMwotRGybEcmPM klzDU9OATaJKOrLLTzlmRzHOA uLiBUaGVyZSBpcyBubyBldmlk XS8aDSReZhMhzLIyfGPqsHYzt 6XhbKYuzZmfCQ8nwK9qyYEttK == [facility] Work Phone: FINAL DIAGNOSIS e7wgkHStCNEzyVWqMBNp M1xhb tYiMPMdpAKtW3QiwhqtHIidZF 6xFR0mkAxjnJWenUYcDIIcStD uk6hpk391sSQux3xeGDCUkzky rEm2mUxqP85ks8B8GnziE25em DXzNVG8SVNtNVSijSMuLLQzZG W5CHYtjTYfC1daGRBmLS1qnri wDGykWTegOALbtNX7IRUhqNUx O7LeOSQvYYiqFUAvdyf9OnTpI z0laGOfdRpjZFtfOZDiFBErUU dtYWQaSiHyWO4lMZAiYJDjmB7 iJLNis4JbnQhpeXtpQVZiDDSu HFhgKSLdp3FlKO31S07rVBQ2a UWxWX9oPUHvAGkyt2Q4zLWuSL Vgs2NqUIlgzSejLQVdlhmvZXP aOt7oQ0TmfGUrgJwcCkewwPL6 KmfwcR7yOW3mT4ZlVCRzhTExU GypOfWyC09ayaZwt2XiH2XfmV LmScNesBYmk1Adx5c4oCVgYRZ urMw4JWHaXFQ7xr8bDEPhyG08 yOKuVYRuBJ7tVLObCZUytmXqX UHlzINbVWFwWZFqQKxxUY72wo LnFkTkBXQ6rbfbIZ45cH32cCC maFauSIIbgUNcd3Ltp9c7dORa prGguGIsyz9zvSwzOVIlvd1cf QNsmUZ8MxhvKNDzxYXbWCYpLH E9b72nI0hvUNZgiNpjeurhGwf eyNGrHHS9ROilnjSoLYYFjG3r oZGsQ6llmuOfnF7kdRHyBSSnq iAtIFNlcGFyYXRlIGZyYWdtZW 88WH3iOUbfx8HzoFIyi8b4yoY iHe84yPZyEX87P29uKWQ0pGIw YIQvbtGzaJNjPJu6uJCkiBvvm 2lhLlxwYXJccGFyIEpFTCAxMC 0aMt9iUTDbJVNahs7= [facility] Work Phone: Gross Description u8gwtHHuPVZpnKNsJBFy M1xhb uHxGMOliQGtC9YqnxbfXRtfCD 7tDO7eaMptpWPfvLBdPDCfOsY ag0eoi187wMNjh4mzBCAQaukc gAb7gKwiV35gb9T4KisiX45kx TAvMCJ3COXyQDKrjFSbSXOxMM F7MTFrbRHaY6naTZBzIZ2rykf aBHtuJCndCSXqlSY5ECKvaTNu X2JlFRCwRRpvRYZuvqj3FaCxG o9vyVUndBioCWoaYtnmuVhjg6 VjdCBcXGlkIDUxMDAwIFxcZGI aO0HYNVTnXEV7EaKeUJWkRTME SMS4KNthKTZ5XDDUMGQmGFtcO cD3GRRbABWqFUYEBKHgGlZ0WK AwMDIgXFxuaCBcXHQgMSBcXGZ zKJgdqvK9m9ksAAXsnNWmXSJ9 IFxcaWQgNTEwMDIgXFxkYiBPV qPtVrR4Erj3RvEzFsRiMFt9BI zfS6NDKPXjPBE9JzKtXIG8AaN 8YZl2MJRUCa7sEBUcFEW3Jag0 CzSsIRH7ThIkIXf5TYRfOHamr gRhAYkcFnlxNChvI08tfIQkFK xwbGFpblxmczIyIEEuIFNNQUx DSGkQFYAATLrKVDUNVQ9RC7ry pRXrFYCaohEgi1GiQSoiuSnhP PKkNxQntDjcjH8yEaGvQXXFIY WefGKpAADoruPji3GqVWqlypS tcxAewqSnxBbrT8Xoq0PhvBVy ZZHig6rhFXLgm9F9CYPgg8G7Q BYvWEQfqVWmoqxsGI91FJhhRF 51HAecDJ7oXIXfMnAYe6AflXb 7CTM3Nm5tkFMgTCZjlcGzciBd J9Agk4A8wUQfTZyvHYKebHBsI DlsTQOlYTXcaWVHy6UsSVqcGQ HjN5EzU7EgmnZ2JJJdvjfbDub epImuo3TtwGUjKQdhMQXcFOJw MLkxFCNcC2LFTSPvXXO9FpUvL HYaERr0QCn7CP6SNoCtQYXuLI DiHvsnVKDgPVb1EEiaLE1CLNV mFvM0JjA4KAS5LDH0Fis6MKoo zRVwFSrag4ThYoAqKXAoEPvcu sV0JMFfcyZta1PpRHDlRHXlI2 boQsSxXJhyauVsOVMcREOBT32 JI1rgHmcCQITQLEIwifqoVFFm JRBuKfWkCNBrG0qhKrSoOGUkL XmfIVDfYzZpMiRnOKt5DGMktW 0vEz3kuMZioU1eFUQoHN84xWM phDanYKZwPKHfpeZvVeW0TU3w LvGgx23xQGSxItCsmDeni9TzJ OLcL8EhQ5Q7zD5hXLCcTQPrTb O8FAJaJgR2ZSHgIdXogN7oOE7 8TZpesPIptVEcfPC9SVLwmR4y e40vSCIun8RdwOUnWxLyqLHaQ VQhguQnl6HoYXdjmIuuJMNmFn V2TDLkaJEjLDB3HF6flCqoPMN 8QVjcEHFdR7KqJ2XyGNuaZET9 UPCkIqXwGHCeKU0KCaQiNBZvD xp1KlYbZaM9PAl3OAQJFwNsLg BwAgy1NaL2TakkWMd0EQn3RTl CIxDsLUNeRKcvYgn0IAC3KEw1 NCBcXHQgMiBcXHNzIDMgXFxmb OAwCV1pgCcaYDFjTUYgLZS1PW YsrXYIg4JmSYWrShBwHuJVUiA JGK6ZSJJUWLfOUSUSGwaLZJUW X4dDLRSDNI6UG8zpbLRbVWXot kJlt4ZiLTvumTwnWKRxEcGfkL dnkX3dNaZfXBQECZWmzBPyTHO wjjAtl3SbDKdyqkQptlRebDpq POGmQUXosyNmVtL0YP8cXoDpr 46dJWDbFcDxbPvgq4EmCRJyL0 YtH1B9hE6lDNTaIKAwOjI3LYL yWkA3GMLpJhZueN8wTR18VWii bNDzoVSfqLG9GSZxsD4vt79vY TKdl4HlfFWgXqshYVAkpEEcVS QjKQBjkjNEdp9dgzTkcEYbzF5 orUxctdYfVINid0XlBGHnABRq M7xwqzNzUN0bZYQhlD3tVgkfY TUwMCBFdWNsaWQgQXZlLiwgQ2 cpzoHsBP8jXUCUHIN3XPV5SHb yNMHanPZeGEDoNoXdDNMmT6dq UVIlSXrEXJ6tnV6hYUCqSETlC DIwMjMgMTozMiBBTVx+e1xlcG evf8KvsGMkHW25OIFmsNIbHAM 5VZ3pfPufTMG8 [facility] Work Phone: Performing Lab l5kylZGkACUfiTKzInTb MDAwX XAdt5egQWHpkPChLlEiAzEzFe DbNegkvFTcGIIcEbRwi9eub28 7qBLvl3avYPMxIuV6oYFsMKUx qGWzV479YQZpPLxxe7fjh2CtD IUurBEts3D5CWKTtieaiVe4bY opJ39wv3P9YgozY8esYCZyMIM wW3OzRX3eQXZpKhx8UBO0JNL3 SARoEVUiO7YpSD4sIUBslAXeI Oq2d8lyxVogKVBiDNK7l4ukFS hzgtUaTL4bks5ljEc3k5mtwnY sVOSvCBYoxVHZLEJnW9MleWfh Qi5hnTq2kGhpImzrJJA6Oji5T U9orb58fxn2wXcmGECfnfxrTp L0OCuqPICgfediDVw6RVabAEZ krLN8GRZdwUSbE9KyBYMlGG5m nkn2KSJ0TXjzOZPgYtM7DPJuq QXoMGOebWibRHtnj685OOT7Bz GrOY0dJ5Vyb3T6rQ1zeNFiVTO xtMNrVkWbVWBkds2hdGZwZXkx t3OqSUJ7dlO3wANduRQgKOVwK H78Phoaj8QvVltxj7JzQ89saO X5VTjwe4fyDX0bQyI3buBrIPl ys2ylaL4hLwU1OSvaPJ3jPA1o DJNazH9rpwwcVPUrSuLtrrwrI GHwcEvjtkJwRi0qoPizZTN6LA poC3pjqB4wWnL0VVtmW0fjpR6 oOKf0WNhghXD1RMSswF4eIM3p zrtzo3ghHRqoGCgyGIOlqyN5z kQ5BMGbuRCfB5DjrR6eLGIiRN 0anyzrr5dhEFZ4ZFcdVXTwGRS 4MjUcYBUsg0Vacrq9IzTfd4Bo kYSzWBlyX00wo539ZLGudnSyV 1xwbGFpblxwbGFpblxmMFxmcz E6FGWcXGQjDVugGMCwJVQtOdT cbGFuZzEwMzNcaGljaFxmMVxk NdOlNJZmQEqiJ1pyKgXvGdTgH lIFsQUpam2odItqUOpbiEZikG IhjDE9mD4rPDWrdgEsis8oZTD laPOTpOQ4LUxnagSdV1zxselq PGJsbCT0dGS0JLncj8WbkWVyV UPuNAOkHRMZx1ZdoR9uNMOsDR LOwJA7JPuyvcJpHQ8QSTR7IIJ mHWOsIZBNBNHxRTG5VMM2REu9 NDlccGFyXHBhclxwYXJkXHBsY NlrARJjQANsZpPisQnrhV8lWg DvZwQgHeocND2xCRLiN2yihTN lLYXxHHVgE2tvXoAkpK6rsDbi MVxjZjJcZnMyMlxsdHJjaCBMY QMqfoS9a9M7GUiukSNucncyHN apdeEgRAlljdutTCBbRBvkW5d pUmUwJSTicUvjAAdjv6GhNCGg MXIqCkDpOGkkVKS3i7H9XG8eu oyzQl4gCACvUMKbR24zBINIOh QuXHBhcn0= [facility] Work Phone: [facility] Work Phone: ANES POSTPROC EVALon 023 ANES POSTPROC EVAL HNO ID: [id number] Author: Ralph Childs APRN.CONDITIONER TUMBLER Service: ? Author Type: Nurse Junior Network Administrator Type: Anesthesia Postprocedure Evaluation Filed: 03/03/2023 10:32 AM Note Text: POST ANESTHESIA EVALUATION NOTE : 2000 Procedure Summary Date: 03/03/23 Room / Location: Ambulatory Surgery Anesthesia Start: 1016 Anesthesia Stop: 1028 Procedure: EGD DIAGNOSTIC Diagnosis: Class 3 severe obesity with serious comorbidity and body mass index (BMI) of 40.0 to 44.9 in adult, unspecified obesity type (HCC) (Preop assessment bariatric surgery morbid obesity) Scheduled Providers: Shelly Parsons DO Responsible Provider: Ralph Childs APRN.CRNA Anesthesia Type: MAC ASA Status: 3 Anesthesia Type: MAC Last Vitals Vitals Value Taken Time BP 104/58 03/03/23 1031 Temp 03/03/23 1031 Pulse 72 03/03/23 1031 Resp 18 03/03/23 1031 SpO2 98 03/03/23 1031 Post Anesthesia Patient Status Patient Evaluation: bedside. Anticipated Disposition: phase 2 then home. Neurological Status: aware and responsive. Pulmonary Status: breathing comfortably on room air Airway Control: returned to baseline unsupported. Cardiovascular Status: stable. Pain Management: clinically adequate Postoperative Hydration: acceptable. Intraoperative Events: no significant anesthesia events Post Operative Nausea/Vomiting Status: no significant post operative nausea or vomiting Recommendation: continue current plan of care. Anesthesia Observations No Documentation SIGNATURE: Ralph Childs APRN.CRNA PATIENT NAME: Saroj Membreno DATE: March 03, 2023 TIME: 10:31 AM CSN: [id number] Normal [facility] EGD Study observation Narrat laura 03-03-2023 [facility] Gastroenterology Gastrointestinal Endoscopy Patient Name: Saroj Membreno Procedure Date: 03/03/2023 10:10 AM Date of : 2000 Admit Type: Outpatient Age: 23 Room: [place] [address] Gender: Female Note Status: Finalized Attending MD: Shelly Parsons DO Procedure: Upper GI endoscopy Indications: Preoperative assessment for bariatric surgery to treat morbid obesity Providers: Shelly Parsons DO Patient Profile: This is a 23 year old female. Refer to note in patient chart for documentation of history and physical. Referring Physician: Norberto Malone MD (Referring MD) Medicines: See the Anesthesia note for documentation of the administered medications Complications: No immediate complications. Requesting Provider: Procedure: Pre-Anesthesia Assessment: - Prior to the procedure, a History and Physical was performed, and patient medications and allergies were reviewed. The patient's tolerance of previous anesthesia was also reviewed. The risks and benefits of the procedure and the sedation options and risks were discussed with the patient. All questions were answered, and informed consent was obtained. Prior Anticoagulants: The patient has taken no anticoagulant or antiplatelet agents. ASA Grade Assessment: III - A patient with severe systemic disease. After reviewing the risks and benefits, the patient was deemed in satisfactory condition to undergo the procedure. After obtaining informed consent, the endoscope was passed under direct vision. Throughout the procedure, the patient's blood pressure, pulse, and oxygen saturations were monitored continuously. The Endoscope was introduced through the mouth, and advanced to the second part of duodenum. I was present and participated during the entire procedure, including non-white portions, and during the administration and monitoring of Moderate Sedation. The upper GI endoscopy was accomplished without difficulty. The patient tolerated the procedure well. Moderate Sedation: MAC anesthesia was administered by the anesthesia team. Findings: The Z-line was variable and was found 36 cm from the incisors. The examined esophagus was normal. A few sessile polyps with no bleeding and no stigmata of recent bleeding were found in the gastric fundus. Biopsies were taken with a cold forceps for histology. Estimated blood loss was minimal. The exam of the stomach was otherwise normal. Biopsies were taken with a cold forceps in the gastric body and in the gastric antrum for Helicobacter pylori testing. Biopsies were taken with a cold forceps for histology. Estimated blood loss was minimal. The examined duodenum was normal. Biopsies were taken with a cold forceps for histology. Biopsies for histology were taken with a cold forceps for evaluation of celiac disease. Estimated blood loss was minimal. Impression: - Z-line variable, 36 cm from the incisors. - Normal esophagus. - A few gastric polyps. Biopsied. - Normal examined duodenum. Biopsied. - Biopsies were taken with a cold forceps for Helicobacter pylori testing. - Biopsies were taken with a cold forceps for histology. Recommendation: - Patient has a contact number available for emergencies. The signs and symptoms of potential delayed complications were discussed with the patient. Return to normal activities tomorrow. Written discharge instructions were provided to the patient. - Resume previous diet. - Continue present medications. - Await pathology results. - Repeat upper endoscopy is not recommended. - Return to referring physician. Procedure Code(s): --- Professional --- 16137, Esophagogastroduodenosc (more content not included)... PROVATION [facility] Radiology Study observation (narrative) [facility] HISTORY PHYSICALon 3 HISTORY PHYSICAL HNO ID: [id number] Author: Shelly Parsons DO Service: Gastroenterology Author Type: Physician Type: HANDP Filed: 03/03/2023 9:27 AM Note Text: HISTORY AND PHYSICAL Saroj Membreno, 23 year old female Current history and physical on file: No Is a new History and Physical required for today's visit? Yes Indication for procedure: Other Pre-op PROCEDURE(S) SCHEDULED FOR: EGD (Esophagogastroduodenosco py) with or without biopsies, removal of polyps or lesions, dilation ( any means), treatment of bleeding ( any means), Barrx treatment of Dandy's Esophagus, image tube placement or cryo therapy treatment based on clinical findings. BASELINE BEHAVIOR: Calm BASELINE ORIENTATION: A AND O x3 All medications and allergies reviewed: Yes Skin Assessment: Warm dry mucus membranes pink Airway/Respiratory Assessment: Airway: visualization of the uvula- Yes Mouth: opening greater than 2 fingerbreadths- Yes Neck: full range of motion- Yes Breath sounds clear/equal- Yes Cardiac Assessment: Regular rate and rhythm without murmur Abdominal Assessment: Abdomen soft, non-tender, no masses or organomegaly. Sedation Plan: MAC Additional Comments: None Shelly Parsons DO Normal [facility] NURSING PROGon 03-03-2023 NURSING PROG HNO ID: [id number] Author: Meghann Kwan RN Service: Nursing Author Type: Registered Nurse Type: Nursing Progress Note Filed: 03/03/2023 10:32 AM Note Text: POST OP LEARNING RESPONSE INSTRUCTION PROVIDED TO: Patient METHOD OF INSTRUCTION: Written instruction - handouts Verbal instruction PATIENT / FAMILY RESPONSE: Verbalizes understanding of: POST-PROCEDURE INSTRUCTIONS-Correct actions to take to reduce post procedure complications FOLLOW-UP PLAN: Patient instructed to call with any further issues SUPPLEMENTAL MATERIAL: Post sedation instructions given REFERRAL (RECOMMENDATION): None Electronically Signed By: Meghann Escalante RN In Department: AMBULATORY SURGERY Normal [facility] NURSING PROG HNO ID: [id number] Author: Bia Price RN Service: ? Author Type: Registered Nurse Type: Nursing Progress Note Filed: 03/03/2023 9:55 AM Note Text: PRE OP LEARNING ASSESSMENT PROCEDURE/SURGERY: GI PROCEDURES: EGD READINESS TO LEARN COGNITIVE ABILITY: Alert and oriented MOTIVATION TO LEARN: Interested FAMILY SUPPORT: High - Very involved in pt care PATIENT LEARNS BEST BY: Written Instruction - Hand-outs Verbal Instruction FACTORS AFFECTING LEARNING: None PHYSICAL LIMITATIONS AFFECTING LEARNING: None Electronically Signed By: Bia Price RN In Department: AMBULATORY SURGERY Normal [facility] SURGICAL PATHOLOGYon 023 CASE REPORT Normal [facility] Comment on above: Order Comment: Deyvi rhodes Type: TISSUE SPECIMENOrdering Facility: [facility] Address: [address] [place] [address] Result Comment: Surg ical Pathology Report Case: [id number] Authorizing Provider: Shelly Parsons DO Collected: 03/03/2023 10:24 AM Ordering Location: Ambulatory Surgery Received: 03/03/2023 10:41 PM Pathologist: Ayan Donaldson MD Specimens: A) - SMALL INTESTINE BIOPSY, r/o celiac B) - STOMACH BIOPSY, r/o h pylori C) - STOMACH (GASTRIC) POLYP BIOPSY, polyps Performed By: #### S ####[facility]ATORYIA [id number] [address] DIAGNOSIS COMMENT B, C. No Helicobacte r pylori organisms are identified. No intestinal metaplasia is seen. There is no evidence of dysplasia or malignancy. Normal [facility] Comment on above: Order Comment: Deyvi rhodes Type: TISSUE SPECIMENOrdering Facility: [facility] Address: [address] [place] [address] Performed By: #### S ####[facility]ORYCL[facility] [id number] [address] FINAL DIAGNOSIS Normal [facility] Comment on above: Order Comment: Deyvi rhodes Type: TISSUE SPECIMENOrdering Facility: [facility] Address: [address] [place] [address] Result Comment: A. D uodenum, biopsy: - Small bowel mucosa with no diagnostic abnormality. B. Stomach, biopsy: - Superficial fragment of gastric mucosa with reactive gastropathy-type changes. - Separate fragments of gastric oxyntic-type mucosa with no diagnostic abnormality. C. Stomach, polyps, biopsies: - Fundic gland polyp. - Separate fragment of gastric oxyntic-type mucosa with foveolar hyperplasia. JEL 03/05/2023 Performed By: #### S ####[facility]ORYCLIA [id number] [address] OF [facility] FINAL PERFORMING LAB Normal [facility] Comment on above: Order Comment: Speci men Type: TISSUE SPECIMENOrdering Facility: [facility] Address: [address] [place] [address] Result Comment: Diag nostic interpretation performed at [facility], [address] [place] [address] CLIA# [id number] Mowing Machine Operator: Guilherme Gonzalez M.D. Performed By: #### S ####[facility]ATORYCLIA [id number] [address] GROSS DESCRIPTION Normal [facility] Comment on above: Order Comment: Speci men Type: TISSUE SPECIMENOrdering Facility: [facility] Address: [address] [place] [address] Result Comment: A. S MALL INTESTINE BIOPSY Received in formalin is one piece of baker-brown, soft tissue measuring 0.5 x 0.4 x 0.3 cm. Totally submitted in one cassette. B. STOMACH BIOPSY Received in formalin are multiple pieces of baker-brown, soft tissue aggregating to 0.7 x 0.3 x 0.3 cm. Totally submitted in one cassette. C. STOMACH (GASTRIC) POLYP BIOPSY Received in formalin are two pieces of baker-brown, soft tissue aggregating to 0.7 x 0.3 x 0.2 cm. Totally submitted in one cassette. Gross examination performed at [facility], [address] [place] [address] KK March 04, 2023 1:32 AM Performed By: #### S ####[facility]ORATORYCLIA [id number] [place] [id number] [place] Upper GI endoscopyon 10-10-2 023 Upper GI endoscopy [facility] Gastroenterology Gastrointestinal Endoscopy Patient Name: Saroj Membreno Procedure Date: 03/03/2023 10:10 AM Date of : 2000 Admit Type: Outpatient Age: 23 Room: [facility] 3 Gender: Female Note Status: Finalized Attending MD: Shelly Parsons DO Procedure: Upper GI endoscopy Indications: Preoperative assessment for bariatric surgery to treat morbid obesity Providers: Shelly Parsons DO Patient Profile: This is a 23 year old female. Refer to note in patient chart for documentation of history and physical. Referring Physician: Norberto Malone MD (Referring MD) Medicines: See the Anesthesia note for documentation of the administered medications Complications: No immediate complications. Requesting Provider: Procedure: Pre-Anesthesia Assessment: - Prior to the procedure, a History and Physical was performed, and patient medications and allergies were reviewed. The patient's tolerance of previous anesthesia was also reviewed. The risks and benefits of the procedure and the sedation options and risks were discussed with the patient. All questions were answered, and informed consent was obtained. Prior Anticoagulants: The patient has taken no anticoagulant or antiplatelet agents. ASA Grade Assessment: III - A patient with severe systemic disease. After reviewing the risks and benefits, the patient was deemed in satisfactory condition to undergo the procedure. After obtaining informed consent, the endoscope was passed under direct vision. Throughout the procedure, the patient's blood pressure, pulse, and oxygen saturations were monitored continuously. The Endoscope was introduced through the mouth, and advanced to the second part of duodenum. I was present and participated during the entire procedure, including non-white portions, and during the administration and monitoring of Moderate Sedation. The upper GI endoscopy was accomplished without difficulty. The patient tolerated the procedure well. Moderate Sedation: MAC anesthesia was administered by the anesthesia team. Findings: The Z-line was variable and was found 36 cm from the incisors. The examined esophagus was normal. A few sessile polyps with no bleeding and no stigmata of recent bleeding were found in the gastric fundus. Biopsies were taken with a cold forceps for histology. Estimated blood loss was minimal. The exam of the stomach was otherwise normal. Biopsies were taken with a cold forceps in the gastric body and in the gastric antrum for Helicobacter pylori testing. Biopsies were taken with a cold forceps for histology. Estimated blood loss was minimal. The examined duodenum was normal. Biopsies were taken with a cold forceps for histology. Biopsies for histology were taken with a cold forceps for evaluation of celiac disease. Estimated blood loss was minimal. Impression: - Z-line variable, 36 cm from the incisors. - Normal esophagus. - A few gastric polyps. Biopsied. - Normal examined duodenum. Biopsied. - Biopsies were taken with a cold forceps for Helicobacter pylori testing. - Biopsies were taken with a cold forceps for histology. Recommendation: - Patient has a contact number available for emergencies. The signs and symptoms of potential delayed complications were discussed with the patient. Return to normal activities tomorrow. Written discharge instructions were provided to the patient. - Resume previous diet. - Continue present medications. - Await pathology results. - Repeat upper endoscopy is not recommended. - Return to referring physician. Procedure Code(s): --- Professional --- 64200, Esophagogastroduodenoscop y, flexible, transoral; with biopsy, single or multiple Diagnosis Code(s): --- Professional --- K22.89, Other specified disease of esophagus K31.7, Polyp of stomach and duodenum Z01.818, Encounter for other preprocedural examination E66.01, Morbid (severe) obesity due to excess calories CPT copyright 2020 [employer]. All rights reserved. The codes documented in this report are preliminary and upon him coder review may be revised to meet current compliance requirements. Scope In: 10:21:13 AM Scope Out: 10:25:25 AM DO Shelly Patel DO 03/03/2023 10:30:44 AM This report has been signed electronically by Shelly Parsons DO Number of Addenda: 0 Note Initiated On: 03/03/2023 10:10 AM Estimated Blood Loss: Estimated blood loss was minimal. Normal [facility] ANES PRE-OPon 02-16-2023 ANES PRE-OP HNO ID: [id number] Author: Ralph Childs APRN.CONDITIONER TUMBLER Service: ? Author Type: Nurse Junior Network Administrator Type: Anesthesia Preprocedure Evaluation Filed: 03/03/2023 10:13 AM Note Text: ANESTHESIOLOGY DAY OF SURGERY NOTE : 2000 Procedure Information Date/Time: 03/03/23 1500 Scheduled providers: Shelly Parsons DO Procedure: EGD DIAGNOSTIC Location: Ambulatory Surgery Estimated body mass index is 42.91 kg/m? as calculated from the following: Height as of 02/04/23: 162.6 cm (5' 4 ). Weight as of 02/04/23: 113.4 kg (250 lb). Most recent hematocrit and potassium results: No results found for this basename: HCT,HEMATOCRIT,K,POTASSIU M Relevant Problems PULMONARY (+) Asthma Psychiatry (+) ADHD (+) Depression (+) Generalized anxiety disorder Other (+) Obesity, Class III, BMI >= 40 01/2023 SINUS BRADYCARDIA WITH SINUS ARRHYTHMIA BORDERLINE ECG + Vapes + Marijuana use I - PHYSICAL EVALUATION AIRWAY Patient intubated: No. Tracheostomy tube not present Mallampati: II. TM distance: >3 FB. Neck ROM: full ROM without neurological symptoms. Mouth opening: adequate. Short neck: yes. Thick neck: yes Vazquez present: no DENTAL Dental findings: teeth intact. Additional exam findings: no II - ANESTHESIA PLAN ASA Score: 3 Anesthetic Plan: MAC The patient is a current smoker. NPO Status: adequate Beta Renate Monitoring Plan Monitoring plan: standard ASA. Post Procedure Analgesic Plan Postoperative analgesic plan: per surgical service. Informed Consent Anesthetic risks, benefits, alternatives, personnel and consent discussed: yes. Patient / Responsible Libertarian agrees to proceed: yes Patient / Surrogate agrees to blood products: blood products not planned DNR status not reviewed with patient and/or family prior to surgery. Significant changes in the patient condition since the History and Physical, not otherwise documented in primary service progress note: no. Potential Anesthesia issues that may suggest increased risk of complications or contraindication to planned procedure: none. No vitals data found for the desired time range. Outpatient Medications as of 03/03/2023 Medication Sig - ARIPiprazole (ABILIFY) 5 mg tablet Take 1 tablet by mouth once daily. - Benzoyl Peroxide 10 % external wash Apply 1 Application to affected area once daily. - clindamycin (CLEOCIN) 1 % external solution Apply 1 Application to affected area once daily. - etonogestrel (NEXPLANON) subdermal implant 68 mg 1 Each by SUBDERMAL route. - spironolactone (ALDACTONE) 50 mg tablet Take 1 tablet by mouth once daily. - doxycycline hyclate (VIBRAMYCIN) 100 mg capsule Take 1 capsule by mouth once daily. No current facility-administered medications on file as of 03/03/2023. I have interviewed and examined the patient. I have reviewed the medical record and/or the pre-anesthesia evaluation, pertinent labs, and test results. This contains updated information obtained within 48 hours of Surgery/Procedure. SIGNATURE: Constance Schumacher APRN.CRNA PATIENT NAME: Saroj Membreno DATE: February 16, 2023 TIME: 2:56 PM CSN: [id number] Normal [facility] CNOVon 02-11-2023 CNOV Office Visit (CARDAV ) ----- SAROJ MEMBRENO ([id number]) 2 F Date Time Provider Department 02/11/23 8:30 AM NURSE CARD [facility] REJ CARDSTIVEN During your visit today, we recorded the following information about you: Roya Lawler RN 02/11/2023 8:34 AM Signed Ekg completed. Pt with no voiced complaints. Provider cc'd of completion. Referring Provider: ALLIE LARSON [[id number]] Allergies As of Date: 02/11/2023 (No Known Allergies) Date Reviewed: 02/04/2023 Reviewed by: Sasha Xie RD - Fully Assessed Reason for Visit: Cardiology Follow Up [1732] Visit Diagnoses:Pre-op evaluation [Z01.818] Class 3 severe obesity with serious comorbidity and body mass index (BMI) of 40.0 to 44.9 in adult, unspecified obesity type (HCC) [E66.01, Z68.41] Order(s):ECG COMPLETE [ECG01] Order #: [id number]. #:[id number] Prescriptions as of 02/11/2023 - ARIPiprazole (ABILIFY) 5 mg tablet Take 1 tablet by mouth once daily. - Benzoyl Peroxide 10 % external wash Apply 1 Application to affected area once daily. - clindamycin (CLEOCIN) 1 % external solution Apply 1 Application to affected area once daily. - etonogestrel (NEXPLANON) subdermal implant 68 mg 1 Each by SUBDERMAL route. - spironolactone (ALDACTONE) 50 mg tablet Take 1 tablet by mouth once daily. - doxycycline hyclate (VIBRAMYCIN) 100 mg capsule Take 1 capsule by mouth once daily. Problem List As Of Date 02/11/2023 Noted Resolved Generalized anxiety disorder [F41.1] 01/19/2023 Obesity, Class III, BMI >= 40 [E66.01] 01/19/2023 Depression [F32.A] 01/19/2023 ADHD [F90.9] 01/19/2023 Asthma [J45.909] 01/19/2023 Visit Notes: >> Roya Lawler RN Wed Feb 11, 2023 8:33 AM Status: Signed Ekg completed. Pt with no voiced complaints. Provider cc'd of completion. Encounter Status:Closed by ROYA LAWLER on 02/11/23 [facility] ECG COMPLETEon 02-11-2023 ECG COMPLETE Ventricular Rate : 5 9 BPM Atrial Rate : 59 BPM P-R Interval : 166 ms QRS Duration : 74 ms Q-T Interval : 408 ms QTC Calculation(Bazett) : 403 ms Calculated P Baxley : 35 degrees Calculated R Baxley : 66 degrees Calculated T Baxley : 39 degrees SINUS BRADYCARDIA WITH SINUS ARRHYTHMIA BORDERLINE ECG Confirmed by STALIN HARRIS MD ([id number]) on 02/12/2023 9:13:18 PM NAME : SAROJ MEMBRENO PID : [id number] : 2000 Gender : Female Race : ORD : [id number] Procedure Date : Feb 11 2023 08:29:59 Edit Date : Feb 12 2023 21:13:23 Diagnosis: SINUS BRADYCARDIA WITH SINUS ARRHYTHMIA BORDERLINE ECG Confirmed by STALIN HARRIS MD ([id number]) on 02/12/2023 9:13:18 PM Test Reason : Location : 192 : AVCRD Overread By : STALIN HARRIS MD Edited By : STALIN HARRIS MD Referred By : ALLIE LARSON Acquired by : , Jeanine [facility] Dereck 02-10-2023 GOPIN Telephone (WIQ) ----- SAROJ MEMBRENO ([id number]) 2 F Date Time Provider Department 02/10/23 CECE OBANDO During your visit today, we recorded the following information about you: Cece Obando, [facility] 02/10/2023 10:12 AM Signed Smoking Cessation Navigation Outcome of contact: Spoke with Intervention Chosen By Patient: Other Comments: Patient quit last week. e[employer] Camera Systems Engineer/Smoking Cessation Navigator: [facility] Allie Larson APRN.PROGRAMS DIRECTOR 02/10/2023 11:32 AM Signed Noted, thank you Allergies As of Date: 02/10/2023 (No Known Allergies) Date Reviewed: 02/04/2023 Reviewed by: Sasha Xie RD - Fully Assessed Reason for Visit: Smoking Cessation [1387] Prescriptions as of 02/10/2023 - ARIPiprazole (ABILIFY) 5 mg tablet Take 1 tablet by mouth once daily. - Benzoyl Peroxide 10 % external wash Apply 1 Application to affected area once daily. - clindamycin (CLEOCIN) 1 % external solution Apply 1 Application to affected area once daily. - etonogestrel (NEXPLANON) subdermal implant 68 mg 1 Each by SUBDERMAL route. - spironolactone (ALDACTONE) 50 mg tablet Take 1 tablet by mouth once daily. - doxycycline hyclate (VIBRAMYCIN) 100 mg capsule Take 1 capsule by mouth once daily. Problem List As Of Date 02/10/2023 Noted Resolved Generalized anxiety disorder [F41.1] 01/19/2023 Obesity, Class III, BMI >= 40 [E66.01] 01/19/2023 Depression [F32.A] 01/19/2023 ADHD [F90.9] 01/19/2023 Asthma [J45.909] 01/19/2023 Encounter Status:Closed by CECE OBANDO on 02/10/23 Normal [facility] CNOVon 01-30-2023 CNOV Office Visit (BMIREJ ) ----- SAROJ MEMBRENO ([id number]) 2 F Date Time Provider Department 01/30/23 9:30 AM NORBERTO MALONE During your visit today, we recorded the following information about you: Pulse Blood pressure Weight 76/minute 118/77 113.4 kg Norberto Malone MD 01/30/2023 3:35 PM Signed Assessment NEW BARIATRIC PATIENT PATIENT NAME: Saroj Membreno REASON FOR CONSULT: Morbid Obesity REQUESTING PHYSICIAN: Self DATE of SERVICE: 01/29/2023 TIME of SERVICE: 9:10 AM PCP: No primary care provider on file. CC: Morbid Obesity HPI: Ms. Membreno is a 23 year old female who is referred for evaluation for Bariatric surgery. Patient does not have any specific complaints today. Patient's obesity related chronic medical conditions include: Diabetes: No Hypertension: Yes Hyperlipedemia:No OA:No GUS: No DVT/PE:No Gastroesophageal reflux: No EGD: No Patient is inclined towards: Unsure History of abdominal surgeries: No PAST MEDICAL HISTORY: PAST MEDICAL HISTORY Diagnosis Date ADHD (attention deficit hyperactivity disorder) Anxiety and depression Asthma PAST SURGICAL HISTORY: PAST SURGICAL HISTORY Procedure Laterality Date EXTRACTION ERUPTED TOOTH/EXR wisdom teeth SOCIAL HISTORY: Social History Tobacco Use Smoking status: Never Smokeless tobacco: Never Tobacco comments: vaping Vaping Use Vaping Use: current everyday user Start date: 05/25/2018 Substances: Nicotine, 1 cartridge per week Substance Use Topics Alcohol use: Yes Comment: once a month Drug use: Yes Frequency: 7.0 times per week Types: Marijuana ALLERGIES: ALLERGIES Not on File FAMILY HISTORY: FAMILY HISTORY Problem Relation Age of Onset Blood Clots No Family History Heart Attack No Family History Anesthesia Problems No Family History MEDICATIONS: Prior to Admission Medications: ARIPiprazole (ABILIFY) 5 mg tablet Take 1 tablet by mouth once daily. Benzoyl Peroxide 10 % external wash Apply 1 Application to affected area once daily. clindamycin (CLEOCIN) 1 % external solution Apply 1 Application to affected area once daily. etonogestrel (NEXPLANON) subdermal implant 68 mg 1 Each by SUBDERMAL route. spironolactone (ALDACTONE) 50 mg tablet Take 1 tablet by mouth once daily. doxycycline hyclate (VIBRAMYCIN) 100 mg capsule Take 1 capsule by mouth once daily. No current facility-administered medications for this visit. FAMILY HISTORY: FAMILY HISTORY Problem Relation Age of Onset Blood Clots No Family History Heart Attack No Family History Anesthesia Problems No Family History Review of Systems: The remainder of the review of systems is negative. PHYSICAL EXAMINATION: BP 118/77 Pulse 76 Wt 113.4 kg (250 lb) LMP 12/29/2022 (Approximate) BMI 43.10 kg/m? General appearance: Well appearing, alert, in no acute distress, well-hydrated, well nourished. Skin: Skin color, texture, turgor normal, no suspicious rashes or lesions Head: Normocephalic, no masses, lesions, tenderness or abnormalities Eyes: Anicteric sclera. Extraocular movements are intact. Neck: Supple, no adenopathy; thyroid symmetric, normal size, Abdomen: Normal abdominal exam, Abdomen soft, non-tender. No masses, organomegaly Extremities: No deformities, edema, skin discoloration, clubbing or cyanosis. Good capillary refill. Musculoskeletal: No joint swelling, deformity, or tenderness Peripheral pulses: Normal Neuro: Gait normal. IMPRESSION Morbid Obesity PLAN: Patient is a very pleasant 23 year old with morbid obesity, patient of No primary care provider on file. with a Body mass index is 43.1 kg/m?.. Patient is here today seeking information regarding weight loss. Patient does not have any chronic comorbidities associated with morbid obesity, specifically she does not have any history of diabetes, hypertension. She additionally does not have any symptoms of GERD at this point although she did have it while she was on Victoza. I have discussed in detail patients options including sleeve gastrectomy and Graciela-en-Y gastric bypass. Based on patient's BMI and medical co morbidities patient would be a candidate for either sleeve gastrectomy/Graciela-en-Y gastric bypass but based on long-term benefits has decided to proceed with a gastric bypass. Patient meets NIH criteria for surgery. 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 I spent approximately 45 minutes with the patient with most of the time spent in counseling. I have reviewed with this patient probably and potential med (more content not included)... Normal [facility] XR CHEST 2V FRONTAL/LATon XR CHEST 2V FRONTAL/LAT * * *Final Report* * * DATE OF EXAM: Jan 30 2023 10:52AM VHX [id number] - XR CHEST 2V FRONTAL/LAT / PROCEDURE REASON: multiple diagnoses * * * * Physician Interpretation * * * * EXAMINATION: CHEST RADIOGRAPH (2 VIEW FRONTAL and LATERAL) CLINICAL HISTORY: Pre-op evaluation Class 3 severe obesity with serious comorbidity and body mass index (BMI) of 40.0 to 44.9 in adult, unspecified obesity type (HCC) MQ: [id number] EXAM DATE/TIME: 01/30/2023 10:52 AM COMPARISON: No relevant prior studies available. RESULT: Lines, tubes, and devices: None. Lungs and pleura: No consolidation. No lung mass. No pleural effusion. No pneumothorax. Cardiomediastinal silhouette: Normal cardiomediastinal silhouette. Bones and soft tissues: Unremarkable. IMPRESSION: No acute radiographic abnormality. Buffing Wheel Former Automatic: DOC Transcribe Date/Time: Jan 30 2023 12:41P Dictated by : ROD BELL MD This examination was interpreted and the report reviewed and electronically signed by: ROD BELL MD on Jan 30 2023 12:43PM EST [id number] Normal [facility]k 01-21-2023 CNPN Telephone (WIQ) ----- SAROJ MEMBRENO ([id number]) 2 F Date Time Provider Department 01/21/23 CECE OBANDO WIIsidoro During your visit today, we recorded the following information about you: Cece Obando, [facility] 01/21/2023 11:57 AM Signed Smoking Cessation Navigation Outcome of contact: Left Message Comments: A voicemail has been left for this patient regarding Tobacco Cessation support options. If this patient has any further questions they can email us at [email or web address] or call us at [phone]. ealth Camera Systems Engineer/Smoking Cessation Navigator: [facility] Allergies As of Date: 01/21/2023 (Not on File) Date Reviewed: 01/19/2023 Reviewed by: Allie Larson APRN.PROGRAMS DIRECTOR - Fully Assessed Reason for Visit: Smoking Cessation [1387] Prescriptions as of 01/21/2023 - ARIPiprazole (ABILIFY) 5 mg tablet Take 1 tablet by mouth once daily. - Benzoyl Peroxide 10 % external wash Apply 1 Application to affected area once daily. - clindamycin (CLEOCIN) 1 % external solution Apply 1 Application to affected area once daily. - etonogestrel (NEXPLANON) subdermal implant 68 mg 1 Each by SUBDERMAL route. - spironolactone (ALDACTONE) 50 mg tablet Take 1 tablet by mouth once daily. - doxycycline hyclate (VIBRAMYCIN) 100 mg capsule Take 1 capsule by mouth once daily. Problem List As Of Date 01/21/2023 Noted Resolved Generalized anxiety disorder [F41.1] 01/19/2023 Obesity, Class III, BMI >= 40 [E66.01] 01/19/2023 Depression [F32.A] 01/19/2023 ADHD [F90.9] 01/19/2023 Asthma [J45.909] 01/19/2023 Encounter Status:Closed by CECE OBANDO on 01/21/23 [facility] CNOVon 01-19-2023 CNOV Office Visit (GENBMI ) ----- SAROJ MEMBRENO ([id number]) 2 F Date Time Provider Department 01/19/23 9:00 AM ALLIE LARSON During your visit today, we recorded the following information about you: Pulse Blood pressure Weight Height 84/minute 111/53 114.9 kg 1.622 m Last Period 12/29/22 Allie Larson APRN.[facility] 01/19/2023 10:06 AM Signed BMI Obesity Medicine Initial Bariatric Surgery Consult January 19, 2023 Patient Summary:: Saroj Membreno is a 23 year old female who presents on January 19, 2023 for surgical evaluation and treatment of obesity. The patient is undecided on which surgical procedure to pursue with Dr. Malone. Primary reason for wanting obesity treatment : prevent comorbidities, improve quality of life Overall goal: ~180 lbs Weight History: She reports a family history of obesity and early onset weight gain. She states her weight gain is related to the following factors, including reduced physical activity, school stress. Prior Weight Loss Surgery: No Previous Obesity Treatments: commercial diets, self-directed, and exercise program. Weight Promoting Medications: None Weight Graph: (please see graph scanned in chart) Diet: Quality of diet: 24hr recall suggests unhealthy diet. Characterization of diet: Unstructured and skip meals. 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 None Stress test: no Functional Status: Climb a flight of stairs or walk up a hill (5.50 METs) Do heavy work around the house, such as scrubbing floors, lifting or moving heavy furniture (8.00 METs) Patient denies any chest pain or undue shortness of breath with the above physical activity. ?Sleep: Duration: 7 hours. GUS NO ; CPAP NO Quality:poor, Few awakenings STOP BANG 1. Snoring : Do you snore loudly (louder than talking, through closed doors)? YES 2. Tired : Do you often feel tired, fatigued, or sleepy during daytime? YES 3. Observed : Has anyone observed you stop breathing during sleep?YES 4. Blood Pressure: treated for high blood pressure?NO 5. BMI : BMI more than 35 kg/m2? YES 6. Age : Age over 50 yr old? NO 7. Neck circumference: Neck circumference greater than 40 cm?YES 8. Gender : Gender male? NO STOP BANG Score 5, Past Medical History PAST MEDICAL HISTORY Diagnosis Date ADHD (attention deficit hyperactivity disorder) Anxiety and depression Asthma No history of [place], COPD, +asthma, peptic ulcer disease, +GERD, dyslipidemia, hypothyroidism, HTN, cancer, DVT, PE, CVA, T2DM, gout, kidney stones, CKD, and +smoking history Current smoker - vapes - nicotine cartridges (1 per week) Current smoker of marijuana daily - no medical card - plans on obtaining one No current outpatient medications on file prior to visit. No current facility-administered medications on file prior to visit. ALLERGIES Not on File PAST SURGICAL HISTORY Procedure Laterality Date EXTRACTION ERUPTED TOOTH/EXR wisdom teeth Any problems with anesthesia with the above surgeries: No FAMILY HISTORY Problem Relation Age of Onset Blood Clots No Family History Heart Attack No Family History Anesthesia Problems No Family History Social History Tobacco Use Smoking status: Never Smokeless tobacco: Never Tobacco comments: vaping Vaping Use Vaping Use: current everyday user Start date: 05/25/2018 Substances: Nicotine, 1 cartridge per week Substance Use Topics Alcohol use: Yes Comment: once a month Drug use: Yes Frequency: 7.0 times per week Types: Marijuana Patient Active Problem List Generalized anxiety disorder Obesity, Class III, BMI >= 40 Depression ADHD Asthma Resolved Hospital Problems No resolved problems to display. Review Of Systems Skin: negative Respiratory: No history of cough, hemoptysis, asthma, recent chest infection, wheezing Cardiovascular: No history of chest pain,palpitation,orthopne a,cynosis,pedel edema Gastrointestinal: No blood in stool, pain with BM, tarry stool, persistent diarrhea or constipation Genitourinary: No burning with urination, blood in urine or incontinence. No change in vaginal discharge, burning, dryness or itching. Hematology/Lymphology Negative for prolonged bleeding, bruising easily or swollen nodes Musculoskeletal: negative Psychiatric: negative +anxiety, stable on current medications Endocrine: No history of thyroid disorder,diabetes,cold intolerance,heat,intolera nce,polydypsia Neuro: No history of headaches, syncope, paralysis, seizures or tremors PE BP 111/53 (BP Site: Left Arm, BP Position: Sitting, BP Cuff Size: Large Adult) Pul (more content not included)... Normal [facility] CULTURE ABSCESSon 09-27-2022 CULTURE ABSCESS Culture Observations : NO GROWTH OF ANAEROBES AT 72 HOURS. Isolate 1 Streptococcus anginosus Light growth of Isolate 2 Enterococcus faecalis Light growth of ORGANISM 1 Streptococcus anginosus ANTIBIOTIC M.I.C RX STATUS Benzylpenicillin <=0.06 S F Ampicillin <=0.25 S F Cefotaxime 0.25 S F Ceftriaxone 0.25 S F Erythromycin 4 R F Clindamycin <=0.25 S F Linezolid <=2 S F Vancomycin 0.5 S F Tetracycline >=16 R F ORGANISM 2 Enterococcus faecalis ANTIBIOTIC M.I.C RX STATUS Beta-Lactamase Neg NEG F Benzylpenicillin 2 S F Ampicillin <=2 S F Gentamicin High Level (synergy) SYN-S S F Streptomycin High Level (synergy) SYN-S S F Quinupristin/Dalfopristin 2 R F Linezolid 2 S F Vancomycin 1 S F Normal [facility] Comment on above: Performed By: #### A BCESCX #### [facility] [address] [place] [address] Dr. Magali Phillips AMYLASEon 09-20-2022 Amylase [Catalytic activity/Vol] 33 U/L Normal 25-115 [facility] Comment on above: Performed By: #### A MY, CMP, LIPA #### [facility] [address] [address] [address] Magali Phillips CBC AUTO DIFFon 09-20-2022 BASO # 0.0 103/ul Normal 0.0-0.1 [facility] Comment on above: Performed By: #### C BC #### [facility] [address] [address] [address] Magali Phillips Basophils/100 WBC (Bld) 0.2 % Normal 0.2-2.0 [facility] Comment on above: Performed By: #### C BC #### [facility] [address] [address] [address] Magali Phillips EO # 0.0 103/ul Normal 0.0-0.7 [facility] Comment on above: Performed By: #### C BC #### [facility] [address] [place] [address] Dr. Magali Phillips Eosinophils/100 WBC (Bld) 0.3 % Critically low 0.9-7.0 [facility] Comment on above: Performed By: #### C BC #### [facility] [address] [place] [address] Dr. Magali Phillips Erythrocyte distribution width (RBC) [Ratio] 12.4 % Normal 11.0-15.0 [facility] Comment on above: Performed By: #### C BC #### [facility] [address] [place] [address] Dr. Magali Phillips Hematocrit (Bld) [Volume fraction] 43.8 % Normal 36.0-48.0 [facility] Comment on above: Performed By: #### C BC #### [facility] [address] [place] [address] Dr. Magali Phillips Hemoglobin (Bld) [Mass/Vol] 14.9 g/dL Normal 12.0-16.0 [facility] Comment on above: Performed By: #### C BC #### [facility] [address] [place] [address] Dr. Magali Phillips IG # 0.03 10e3/ul Normal 0.00-0.03 [facility] Comment on above: Performed By: #### C BC #### [facility] [address] [place] [address] Dr. Magali Phillips IG % 0.2 % Normal 0.0-0.5 [facility] Comment on above: Performed By: #### C BC #### [facility] [address] [place] [address] Dr. Magali Phillips LYMPH # 2.6 103/ul Normal 1.2-3.8 [facility] Comment on above: Performed By: #### C BC #### [facility] [address] [place] [address] Dr. Magali Phillips Lymphocytes/100 WBC (Bld) 21.0 % Normal 20.5-60.0 [facility] Comment on above: Performed By: #### C BC #### [facility] [address] [place] [address] Dr. Magali Phillips MANUAL DIFF REQ NO Normal [facility] Comment on above: Performed By: #### C BC #### [facility] [address] [place] [address] Dr. Magali Phillips MCH (RBC) [Entitic mass] 30.2 pg Normal 26.7-34.0 [facility] Comment on above: Performed By: #### C BC #### [facility] [address] [place] [address] Dr. Magali Phillips MCHC (RBC) [Mass/Vol] 34.0 g/dL Normal 29.9-35.2 [facility] Comment on above: Performed By: #### C BC #### [facility] [address] [place] [address] Dr. Magali Phillips MCV (RBC) [Entitic vol] 88.8 fL Normal 81.0-99.0 [facility] Comment on above: Performed By: #### C BC #### [facility] [address] [place] [address] Dr. Magali Phillips MONO # 1.0 103/ul Critically high 0.3-0.[address] [facility] Comment on above: Performed By: #### C BC #### [facility] [address] [place] [address] Dr. Magali Phillips Monocytes/100 WBC (Bld) 8.0 % Normal 1.7-12.0 [facility] Comment on above: Performed By: #### C BC #### [facility] [address] [place] [address] Dr. Magali Phillips NEUT # 8.6 103/ul Critically high 1.4-6.5 [facility] Comment on above: Performed By: #### C BC #### [facility] [address] [place] [address] Dr. Magali Phillips Neutrophils/100 WBC (Bld) 70.3 % Normal 43.0-75.0 [facility] Comment on above: Performed By: #### C BC #### [facility] [address] [place] [address] Dr. Magali Phillips Platelet mean volume (Bld) [Entitic vol] 9.6 fL Normal 9.5-13.5 [facility] Comment on above: Performed By: #### C BC #### [facility] [address] [place] [address] Dr. Magali Phillips PLT 279 103/ul Normal 150-450 [facility] Comment on above: Performed By: #### C BC #### [facility] [address] [place] [address] Dr. Magali Phillips RBC 4.93 106/ul Normal 4.20-5.40 [facility] Comment on above: Performed By: #### C BC #### [facility] [address] [place] [address] Dr. Magali Phillips WBC 12.2 103/ul Critically high 4.0-11.0 [facility] Comment on above: Performed By: #### C BC #### [facility] [address] [place] [address] Dr. Magali Phillips CULTURE URINEon 09-20-2022 CULTURE URINE Culture Observations : MODERATE GROWTH OF MIXED GENITAL DEE. NO POTENTIAL PATHOGENS SEEN. Normal [facility] Comment on above: Performed By: #### U RCX #### [facility] [address] [place] [address] Dr. Magali Phillips ER URINE PROFILEon 3 Bilirubin Ql (U) Negative Normal NEGATIVE [facility] Comment on above: Performed By: #### Mulu ESCOBEDO UMICRO #### [facility] [address] [place] [address] Dr. Magali Phillips Clarity (U) CLEAR Normal CLEAR [facility] Comment on above: Performed By: #### Mulu ESCOBEDO UMICRO #### [facility] [address] [place] [address] Dr. Magali Phillips Color (U) LT. YELLOW Normal YELLOW [facility] Comment on above: Performed By: #### Mulu ESCOBEDO UMICRO #### [facility] [address] [address] [address] Magali KAPOOR A micrscopic examina tion will be performed if indicated. Normal [facility] Comment on above: Performed By: #### MEGA CLAROSRO #### [facility] [address] [address] [address] Magali Phillips Glucose Ql (U) Negative Normal NEGATIVE [facility] Comment on above: Performed By: #### MEGA CLAROSRO #### [facility] [address] [place] [address] Dr. Magali Phillips Hemoglobin Ql (U) MODERATE Abnormal NEGATIVE [facility] Comment on above: Performed By: #### MEGA CLAROSRO #### [facility] [address] [place] [address] Dr. Magali Phillips Ketones Ql (U) Negative Normal NEGATIVE [facility] Comment on above: Performed By: #### MEGA CLAROSRO #### [facility] [address] [place] [address] Dr. Magali Phillips LEUKOCYTES MODERATE Abnormal NEGATIVE [facility] Comment on above: Performed By: #### MEGA CLRAOSRO #### [facility] [address] [place] [address] Dr. Magali Phillips Nitrite Ql (U) Negative Normal NEGATIVE [facility] Comment on above: Performed By: #### MEGA CLAROSRO #### [facility] [address] [place] [address] Dr. Magali Phillips pH (U) 5.5 [pH] Normal 5-9 [facility] Comment on above: Performed By: #### MEGA CLAROSRO #### [facility] [address] [place] [address] Dr. Magali Phillips SPEC GRAVITY 1.025 Normal 1.005-<=1.0 25 [facility] Comment on above: Performed By: #### MEGA CLAROSRO #### [facility] [address] [place] [address] Dr. Magali Phillips UA PROTEIN Negative Normal NEGATIVE/ TRACE [facility] Comment on above: Performed By: #### E FANNY UMICRO #### [facility] [address] [place] [address] Dr. Magali Phillips UR MICRO IND INDICATED Normal [facility] Comment on above: Performed By: #### E BRIAN ESCOBEDOICRO #### [facility] [address] [place] [address] Dr. Magali Phillips Urobilinogen Qn (U) 0.2 {Nickie'U}/dL Normal 0.2 - 1. 0 [facility] Comment on above: Performed By: #### E MEGA ESCOBEDORO #### [facility] [address] [place] [address] Dr. Magali Phillips LIPASEon 09-20-2022 Lipase [Catalytic activity/Vol] 62.0 U/L Critically low 73.0-393.0 [facility] Comment on above: Performed By: #### A MY, CMP, LIPA #### [facility] [address] [place] [address] Dr. Magali Phillips OCC BLD IMMUNO SCREENon 08-24 OCCULT BLOOD Negative Normal NEGATIVE [facility] Comment on above: Performed By: #### O BSCRN #### [facility] [address] [place] [address] Dr. Magali Phillips PROF 14(COMP METB)on 023 Albumin [Mass/Vol] 4.0 g/dL Normal 3.4-5.0 [facility] Comment on above: Performed By: #### A MY, CMP, LIPA #### [facility] [address] [place] [address] Dr. Magali Phillips Albumin/Globulin [Mass ratio] 1.0 {ratio} Normal [facility] Comment on above: Performed By: #### A MY, CMP, LIPA #### [facility] [address] [place] [address] Dr. Magali Phillips ALP [Catalytic activity/Vol] 117 U/L Critically high 46-116 [facility] Comment on above: Performed By: #### A MY, CMP, LIPA #### [facility] [address] [address] [address] Magali Phillips ALT [Catalytic activity/Vol] 24 U/L Normal 14-59 [facility] Comment on above: Performed By: #### A MY, CMP, LIPA #### [facility] [address] [address] [address] Magali Phillips Anion gap [Moles/Vol] 12.5 mmol/L Normal [facility] Comment on above: Performed By: #### A MY, CMP, LIPA #### [facility] [address] [address] [address] Magali Phillips AST [Catalytic activity/Vol] 17 U/L Normal 15-37 [facility] Comment on above: Performed By: #### A MY, CMP, LIPA #### [facility] [address] [address] [address] Magali Phillips Bilirubin [Mass/Vol] 1.0 mg/dL Normal 0.2-1.0 [facility] Comment on above: Performed By: #### A MY, CMP, LIPA #### [facility] [address] [address] [address] Magali Phillips Calcium [Mass/Vol] 8.8 mg/dL Normal 8.5-10.1 [facility] Comment on above: Performed By: #### A MY, CMP, LIPA #### [facility] [address] [address] [address] Magali Phillips Chloride [Moles/Vol] 106 mmol/L Normal 98-107 [facility] Comment on above: Performed By: #### A MY, CMP, LIPA #### [facility] [address] [address] [address] Magali Phillips CO2 [Moles/Vol] 24.2 mmol/L Normal 21.0-32.0 [facility] Comment on above: Performed By: #### A MY, CMP, LIPA #### [facility] [address] [address] [address] Magali Phillips Creatinine [Mass/Vol] 0.71 mg/dL Normal 0.55-1.02 [facility] Comment on above: Performed By: #### A MY, CMP, LIPA #### [facility] [address] [address] [address] Magali Phillips EGFR-AF SAO TOMEAN >60 Normal >=60 [facility] Comment on above: Performed By: #### A MY, CMP, LIPA #### [facility] [address] [address] [address] Magali Phillips EGFR-NON AF SAO TOMEAN >60 Normal >=60 [facility] Comment on above: Performed By: #### A MY, CMP, LIPA #### [facility] [address] [place] [address] Dr. Magali Phillips Globulin (S) [Mass/Vol] 4.0 g/dL Normal [facility] Comment on above: Performed By: #### A MY, CMP, LIPA #### [facility] [address] [place] [address] Dr. Magali Phillips Glucose [Mass/Vol] 91 mg/dL Normal 74-106 [facility] Comment on above: Performed By: #### A MY, CMP, LIPA #### [facility] [address] [place] [address] Dr. Magali Phillips Potassium [Moles/Vol] 3.7 mmol/L Normal 3.5-5.1 [facility] Comment on above: Performed By: #### A MY, CMP, LIPA #### [facility] [address] [place] [address] Dr. Magali Phillips Protein [Mass/Vol] 8.0 g/dL Normal 6.4-8.2 [facility] Comment on above: Performed By: #### A MY, CMP, LIPA #### [facility] [address] [place] [address] Dr. Magali Phillips Sodium [Moles/Vol] 139 mmol/L Normal 136-145 [facility] Comment on above: Performed By: #### A MY, CMP, LIPA #### [facility] [address] [place] [address] Dr. Magali Phillips Urea nitrogen [Mass/Vol] 8.0 mg/dL Normal 7.0-18.0 [facility] Comment on above: Performed By: #### A KALI GARZA, LIPA #### [facility] [address] [place] [address] Dr. Magali Phillips Urea nitrogen/Creatinine [Mass ratio] 11.3 mg/mg Normal [facility] Comment on above: Performed By: #### A GREG CMP, LIPA #### [facility] [address] [place] [address] Dr. Magali Phillips URINE MICROSCOPIC ONLYon BACTERIA TRACE Abnormal NONE SEEN [facility] Comment on above: Performed By: #### Mulu ESCOBEDO UMICRO #### [facility] [address] [place] [address] Dr. Magali Phillips Bacteria identified Cx Nom (U) INDICATED Normal [facility] Comment on above: Performed By: #### Mulu ESCOBEDO UMICRO #### [facility] [address] [place] [address] Dr. Magali Phillips CAST SEEN Abnormal NONE SEEN [facility] Comment on above: Performed By: #### Mulu ESCOBEDO UMICRO #### [facility] [address] [place] [address] Dr. Magali Phillips Crystals LM Nom (Urine sed) NONE SEEN Normal NONE SEEN [facility] Comment on above: Performed By: #### Mulu ESCOBEDO UMICRO #### [facility] [address] [place] [address] Dr. Magali Phillips Epithelial cells LM Ql (Urine sed) FEW Abnormal NONE SEEN /RARE [facility] Comment on above: Performed By: #### Mulu ESCOBEDO UMICRO #### [facility] [address] [place] [address] Dr. Magali Phillips HYALINE CAST RARE Normal [facility] Comment on above: Performed By: #### Mulu ESCOBEDO UMICRO #### [facility] [address] [place] [address] Dr. Magali Phillips MUCOUS NONE SEEN Normal NONE SEEN [facility] Comment on above: Performed By: #### Mulu ESCOBEDO UMICRO #### [facility] [address] [address] [address] Magali Phillips RBC 5-10 Abnormal 0-2 [facility] Comment on above: Performed By: #### E RUR, UMICRO #### [facility] [address] [address] [address] Magali Phillips TRICH SEEN Abnormal NONE SEEN [facility] Comment on above: Performed By: #### E RUR, UMFRANSISCORO #### [facility] [address] [address] [address] Magali Phillips WBC 5-10 Abnormal NONE SEEN [facility] Comment on above: Performed By: #### Mulu ESCOBEDO, UMICRO #### [facility] [address] [address] [address] Magali Phillips Urinalysis - AUTOMATEDon Appearance (U) clear [employer] Other Bilirubin Ql (U) Negative [employer] Other Color (U) yellow [facility] Other Glucose Ql (U) Negative [employer] Other Hemoglobin Ql (U) Negative [employer] Other Ketones Ql (U) Negative [employer] Other Leukocyte esterase Test strip Ql (U) trace [facility] Other Nitrite Ql (U) Negative [employer] Other pH (U) 6.5 [pH] [facility] Other Protein Ql (U) Negative [employer] Other Specific gravity (U) [Rel density] 1.025 [facility] Other Urobilinogen (U) [Mass/Vol] 1.0 mg/dL [facility] Other Urinalysis - AUTOMATED [employer] [facility] [employer] Other Urine Cultureon 07-07-2022 Bacteria identified Cx Nom (U) [facility] Other Automated erythrocytes count in urine sediment (number/area)Ordered By: Michelle Arthur on 07-04-2022 RBC Auto (Urine sed) [#/Area] 3-4 [HPF] 0-4 [facility] Automated leukocytes count i n urine sediment (number/area)Ordered By: Michelle Ortizimore on 07-04-2022 WBC Auto (Urine sed) [#/Area] 5-9 [HPF] 0-4 [facility] Bilirubin Test strip Ql (U)O rdered By: Michelle Ortizimjohann on 07-04-2022 Bilirubin Ql (U) Negative Negative [facility] Color Auto (U)Ordered By: Joanne Arthur on 07-04-2022 Color (U) Yellow Yellow [facility] HCG ( test) IA.rapi d Ql (U)Ordered By: Michelle Ortizimjohann on 07-04-2022 HCG ( test) Ql (U) Negative [facility] Ketones Auto test strip (U) [Mass/Vol]Ordered By: Michelle Arthur on 07-04-2022 Ketones (U) [Mass/Vol] Negative Negative [facility] Laboratory - UrinalysisOrder ed By: Michelle Arthur on 07-04-2022 Hyaline casts LM Ql (Urine sed) 0-8 [LPF] 0-8 [facility] Nitrite Test strip Ql (U)Ord ered By: Michelle Ortizimore on 07-04-2022 Nitrite Ql (U) Negative Negative [facility] Protein Auto test strip (U) [Mass/Vol]Ordered By: Michelle Arthur on 07-04-2022 Protein (U) [Mass/Vol] Negative Negative [facility] Specific gravity Auto test s trip (U) [Rel density]Ordered By: Michelle Arthur on 07-04-2022 Specific gravity (U) [Rel density] 1.016 1.001-1.030 [facility] Squamous epithelial cells de tection in urine sediment by light microscopyOrdered By: Michelle Arthur on 07-04-2022 Epithelial cells.squamous LM Ql (Urine sed) 1-2 [HPF] 0-2 [facility] Urine bacteria detection by automated methodOrdered By: Michelle Arthur on 07-04-2022 Bacteria Auto Ql (U) None seen None Seen [facility] Urine clarity by refractomet ry automatedOrdered By: Michelle Arthur on 07-04-2022 Clarity Refractometry automated (U) Clear Clear [facility] Urine culture routineOrdered By: Michelle Arthur on 07-04-2022 Bacteria identified Cx Nom (U) 2 Days [facility] Urine glucose measurement by automated test strip (mass/volume)Ordered By: Michelle Arthur on 07-04-2022 Glucose Auto test strip (U) [Mass/Vol] Normal mg/dL Normal [facility] Urine hemoglobin detection b y automated test stripOrdered By: Michelle Arthur on 07-04-2022 Hemoglobin Auto test strip Ql (U) Negative Negative [facility] Urine leukocyte esterase det ection by automated test stripOrdered By: Michelle Arthur on 07-04-2022 Leukocyte esterase Auto test strip Ql (U) 2+ Negative [facility] Urobilinogen Auto test strip (U) [Mass/Vol]Ordered By: Michelle Arthur on 07-04-2022 Urobilinogen (U) [Mass/Vol] Normal mg/dL Normal [facility] pH Auto test strip (U)Ordere d By: Michelle Arthur on 07-04-2022 pH (U) 7.0 [pH] 5.0-9.0 [facility] COVID Quick Testingon 2020 Result Negative [facility] Other Vital Signs Date Time Vital Sign Value Performing Clinician Facility 02-02-2024 09: Body height 157.48 cm [facility] 02-02-2024 09: Body mass index (BMI) [Ratio] 49.6 kg/m2 [facility] 02-02-2024 09: Body temperature 98.1 [degF] [facility] 02-02-2024 09:22-0400 Body weight 123.09 kg [facility] 02-02-2024 09:22-0400 Heart rate 81 /min [facility] 02-02-2024 09:22-0400 Respiratory rate 18 /min [facility] 02-02-2024 09:22-0400 SaO2% (BldA) [Mass fraction] 99 % [facility] 01-20-2024 12:01-0400 Body height 157.48 cm [facility] 01-20-2024 12:01-0400 Body mass index (BMI) [Ratio] 48.9 kg/m2 [facility] 01-20-2024 12:01-0400 Body temperature 98.3 [degF] [facility] 01-20-2024 12:01-0400 Body weight 121.27 kg [facility] 01-20-2024 12:01-0400 Heart rate 107 /min [facility] 01-20-2024 12:01-0400 Respiratory rate 18 /min [facility] 01-20-2024 12:01-0400 SaO2% (BldA) [Mass fraction] 99 % [facility] 11-13-2023 10:26-0400 Body height 157.48 cm [facility] 11-13-2023 10:26-0400 Body mass index (BMI) [Ratio] 49 kg/m2 [facility] 11-13-2023 10:26-0400 Body temperature 97.8 [degF] [facility] 11-13-2023 10:26-0400 Body weight 121.56 kg [facility] 11-13-2023 10:26-0400 Heart rate 82 /min [facility] 11-13-2023 10:26-0400 SaO2% (BldA) [Mass fraction] 98 % [facility] 09-16-2023 09:45-0400 Body height 157.48 cm [facility] 09-16-2023 09:45-0400 Body mass index (BMI) [Ratio] 48.4 kg/m2 [facility] 09-16-2023 09:45-0400 Body temperature 98.6 [degF] [facility] 09-16-2023 09:45-0400 Body weight 120.25 kg [facility] 09-16-2023 09:45-0400 Heart rate 51 /min [facility] 09-16-2023 09:45-0400 Respiratory rate 18 /min [facility] 09-16-2023 09:45-0400 SaO2% (BldA) [Mass fraction] 98 % [facility] 03-03-2023 10:45-0400 Heart rate 67 /min Shelly Ly DO Work Phone: [facility] 03-03-2023 10:45-0400 Respiratory rate 12 /min Shelly Ly DO Work Phone: [facility] 03-03-2023 10:45-0400 SaO2% (BldA) [Mass fraction] 100 % Shelly Ly DO Work Phone: [facility] 03-03-2023 10:40-0400 Diastolic blood pressure 72 mm[Hg] Shelly Ly DO Work Phone: [facility] 03-03-2023 10:40-0400 Systolic blood pressure 115 mm[Hg] Shelly Ly DO Work Phone: [facility] 02-04-2023 10:25-0400 Body height 162.[address] Work Phone: [facility] 02-04-2023 10:25-0400 Body weight 113.[address] Work Phone: [facility] 01-19-2023 09:24-0400 Body height 162.2 cm Allie Larson APRN.PROGRAMS DIRECTOR Work Phone: [facility] 01-19-2023 09:24-0400 Body weight 114.92 kg Allie Larson APRN.PROGRAMS DIRECTOR Work Phone: [facility] 01-19-2023 09:24-0400 Diastolic blood pressure 53 mm[Hg] Allie Larson PELT SHEARER.PROGRAMS DIRECTOR Work Phone: [facility] 01-19-2023 09:24-0400 Heart rate 84 /min Allie Larson PELT SHEARER.PROGRAMS DIRECTOR Work Phone: [facility] 01-19-2023 09:24-0400 Systolic blood pressure 111 mm[Hg] Allie Larson PELT SHEARER.PROGRAMS DIRECTOR Work Phone: [facility] 07-07-2022 17:00-0500 Body height 160.02 cm Radhika Enrique Other [facility] Other 07-07-2022 17:00-0500 Body mass index (BMI) [Ratio] 48.35 kg/m2 Radhika Iva Other [facility] Other 07-07-2022 17:00-0500 Body temperature 98 [degF] Rahdika Iva Other [facility] Other 07-07-2022 17:00-0500 Body weight 123.83 kg Radhika Iva Other [facility] Other 07-07-2022 17:00-0500 Diastolic blood pressure 60 mm[Hg] Radhika Enrique Other [facility] Other 07-07-2022 17:00-0500 Respiratory rate 18 /min Radhika Iva Other [facility] Other 07-07-2022 17:00-0500 SaO2% (BldA) [Mass fraction] 99 % Radhika Enrique Other [facility] Other 07-07-2022 17:00-0500 Systolic blood pressure 111 mm[Hg] Radhika Enrique Other [facility] Other 07-04-2022 11:16-0500 Body height 160.02 cm [facility] 07-04-2022 11:16-0500 Body temperature 97.8 [degF] [facility] 07-04-2022 11:16-0500 Body weight 124 kg [facility] 07-04-2022 11:16-0500 Diastolic blood pressure 71 mm[Hg] [facility] 07-04-2022 11:16-0500 Heart rate 75 /min [facility] 07-04-2022 11:16-0500 Respiratory rate 22 /min [facility] 07-04-2022 11:16-0500 SaO2% (BldA) [Mass fraction] 100 % [facility] 07-04-2022 11:16-0500 Systolic blood pressure 118 mm[Hg] [facility] 01-27-2022 15:10-0400 Body height 160.02 cm Radhika Jovelmond Other [facility] Other 01-27-2022 15:10-0400 Body mass index (BMI) [Ratio] 46.05 kg/m2 Radhika Jovelmond Other [facility] Other 01-27-2022 15:10-0400 Body temperature 98 [degF] Radhika Jovelmond Other [facility] Other 01-27-2022 15:10-0400 Body weight 117.94 kg Radhika Iva Other [facility] Other 01-27-2022 15:10-0400 Diastolic blood pressure 63 mm[Hg] Radhika Iva Other [facility] Other 01-27-2022 15:10-0400 Respiratory rate 16 /min Radhika Iva Other [facility] Other 01-27-2022 15:10-0400 SaO2% (BldA) [Mass fraction] 100 % Radhika Enrique Other [facility] Other 01-27-2022 15:10-0400 Systolic blood pressure 100 mm[Hg] Radhika Enrique Other [facility] Other 11-11-2021 17:30-0400 Body height 160.02 cm Maria R Vacaault Other [facility] Other 11-11-2021 17:30-0400 Body mass index (BMI) [Ratio] 45.52 kg/m2 Maria R Naif Other [facility] Other 11-11-2021 17:30-0400 Body temperature 98.2 [degF] Maria R Naif Other [facility] Other 11-11-2021 17:30-0400 Body weight 116.58 kg Maria R Naif Other [facility] Other 11-11-2021 17:30-0400 Diastolic blood pressure 70 mm[Hg] Maria R Naif Other [facility] Other 11-11-2021 17:30-0400 Respiratory rate 16 /min Maria R Naif Other [facility] Other 11-11-2021 17:30-0400 SaO2% (BldA) [Mass fraction] 99 % Maria R Naif Other [facility] Other 11-11-2021 17:30-0400 Systolic blood pressure 114 mm[Hg] Maria Remily Disla Other [facility] Other 10-14-2021 12:00-0400 Body height 160.02 cm Maria R Disla Other [facility] Other 10-14-2021 12:00-0400 Body mass index (BMI) [Ratio] 46.58 kg/m2 Maria R Disla Other [facility] Other 10-14-2021 12:00-0400 Body temperature 98.2 [degF] Maria R Vacaault Other [facility] Other 10-14-2021 12:00-0400 Body weight 119.3 kg Maria R Disla Other [facility] Other 10-14-2021 12:00-0400 Diastolic blood pressure 68 mm[Hg] Maria R Disla Other [facility] Other 10-14-2021 12:00-0400 Respiratory rate 16 /min Maria R Disla Other [facility] Other 10-14-2021 12:00-0400 SaO2% (BldA) [Mass fraction] 98 % Maria R Disla Other [facility] Other 10-14-2021 12:00-0400 Systolic blood pressure 106 mm[Hg] Maria R Vacaault Other [facility] Other 03-30-2021 14:45-0400 Body temperature 96.4 [degF] Maria R Vacaault Other [facility] Other 03-30-2021 14:45-0400 SaO2% (BldA) [Mass fraction] 98 % Maria R Disla Other [facility] Other 03-07-2021 16:55-0400 Body height 160.02 cm Maria R Disla Other [facility] Other 03-07-2021 16:55-0400 Body mass index (BMI) [Ratio] 47.11 kg/m2 Maria R Disla Other [facility] Other 03-07-2021 16:55-0400 Body temperature 97.6 [degF] Maria R Disla Other [facility] Other 03-07-2021 16:55-0400 Body weight 120.66 kg Maria R Disla Other [facility] Other 03-07-2021 16:55-0400 Diastolic blood pressure 71 mm[Hg] Maria R Disla Other [facility] Other 03-07-2021 16:55-0400 Respiratory rate 18 /min Maria R Disla Other [facility] Other 03-07-2021 16:55-0400 SaO2% (BldA) [Mass fraction] 98 % Maria R Disla Other [facility] Other 03-07-2021 16:55-0400 Systolic blood pressure 106 mm[Hg] Maria R Vacaault Other [facility] Other 02-26-2021 14:00-0400 Body height 160.02 cm Maria R Vacaault Other [facility] Other 02-26-2021 14:00-0400 Body mass index (BMI) [Ratio] 46.05 kg/m2 Maria R Disla Other [facility] Other 02-26-2021 14:00-0400 Body temperature 97.5 [degF] Maria R Disla Other [facility] Other 02-26-2021 14:00-0400 Body weight 117.94 kg Maria R Disla Other [facility] Other 02-26-2021 14:00-0400 SaO2% (BldA) [Mass fraction] 99 % Maria R Disla Other [facility] Other Encounters Encounter Date Encounter Type Care Provider Facility Start: 03-22-2024 End: 03-22-2024 ambulatory MARIA R DISLA Facility:[facility] Start: 02-02-2024 End: 02-02-2024 Departed Referred [facility] [place] Work Phone: Start: 02-02-2024 End: 02-02-2024 ambulatory NON STAFF [facility] Work Phone: Start: 02-02-2024 End: 02-02-2024 Patient encounter procedure [facility] Work Phone: Start: 01-20-2024 End: 01-20-2024 ambulatory NON STAFF [facility] Work Phone: Start: 01-20-2024 End: 01-20-2024 Patient encounter procedure [facility] Work Phone: Start: 11-13-2023 End: 11-13-2023 ambulatory NON STAFF [facility] Work Phone: Start: 11-13-2023 End: 11-13-2023 Patient encounter procedure [facility] Work Phone: Start: 09-16-2023 End: 09-16-2023 ambulatory [facility] Work Phone: Start: 09-16-2023 End: 09-16-2023 Patient encounter procedure [facility] Work Phone: Start: 06-30-2023 End: 06-30-2023 ambulatory MARZENA MARTINEZ Facility:[facility] Start: 04-29-2023 End: 04-29-2023 ambulatory ONIEL CARTER Not Available Start: 04-06-2023 End: 04-06-2023 ambulatory NETTA DILLARD Facility:[facility] Start: 03-12-2023 ambulatory ALLIE [place] Facility: [facility] Start: 03-12-2023 End: 03-12-2023 Preprocedural examination done Ultra 2 Work Phone: [facility] Start: 03-12-2023 End: 03-12-2023 Subsequent hospital visit by physician [facility] Work Phone: [facility] Radiology Ultrasound Comment on above: Pre-op evaluation [Z 01.818] Start: 03-03-2023 End: 03-03-2023 ambulatory SHELLY PARSONS Facility:[facility] Start: 03-03-2023 End: 03-03-2023 Subsequent hospital visit by physician Shelly Parsons DO Work Phone: Ambulatory Surgery Comment on above: Class 3 severe obesi ty with serious comorbidity and body mass index (BMI) of 40.0 to 44.9 in adult, unspecified obesity type (HCC) [E66.01, Z68.41] Start: 02-25-2023 ambulatory Nurse Janis [facility] Work Phone: Gastroenterology Comment on above: EGD instructions Start: 02-25-2023 E-mail encounter fro m caregiver Nurse Janis [facility] Work Phone: [facility] Start: 02-11-2023 End: 02-12-2023 ambulatory [facility] Facility:[facility] Start: 02-11-2023 End: 02-11-2023 ambulatory [facility] Facility:[facility] Start: 02-11-2023 Encounter for other preprocedural examination SHELLY PARSONS [facility] Start: 02-11-2023 End: 02-11-2023 Patient encounter procedure Nurse Card [facility] Work Phone: Cardiology Comment on above: Pre-op evaluation; Class 3 severe obesity with serious comorbidity and body mass index (BMI) of 40.0 to 44.9 in adult, unspecified obesity type (HCC) Start: 02-11-2023 End: 02-11-2023 Preprocedural examination done Nurse Rej Work Phone: [facility] Start: 02-10-2023 Telephone encounter Cece Re [facility] Comment on above: Smoking Cessation Start: 02-04-2023 End: 02-04-2023 ambulatory SASHA XIE Facility:[facility] Start: 02-04-2023 End: 02-04-[address] Work Phone: Nutrition Comment on above: Body mass index (BMI ) 40.0-44.9, adult (HCC) (Primary Dx); Dietary counseling and surveillance Start: 02-04-2023 End: 02-04-2023 Telemedicine consultation with patient Sasha Xie RD Work Phone: [facility] Start: 02-01-2023 Chart abstracting [facility] Work Phone: Neurology Start: 01-30-2023 ambulatory [facility] Facility: [facility] Start: 01-30-2023 Encounter for other preprocedural examination [facility] Start: 01-30-2023 End: 01-30-2023 ambulatory NORBERTO MALONE Facility:[facility] Start: 01-30-2023 End: 01-30-2023 Preprocedural examination done [facility] Work Phone: [facility] Start: 01-30-2023 End: 01-30-2023 Subsequent hospital visit by physician [facility] Work Phone: [facility] Radiology General Comment on above: Pre-op evaluation [Z 01.818] Start: 01-19-2023 End: 01-20-2023 ambulatory ALLIE LARSON Facility:[facility] Start: 01-19-2023 End: 01-19-2023 Patient encounter procedure Allie Larson PELT SHEARER.PROGRAMS DIRECTOR Work Phone: General Surgery Comment on above: Pre-op evaluation (P rimary Dx); Class 3 severe obesity with serious comorbidity and body mass index (BMI) of 40.0 to 44.9 in adult, unspecified obesity type (HCC); Vapes nicotine containing substance; Marijuana smoker Start: 01-19-2023 End: 01-19-2023 Preprocedural examination done Allie Larson APRN.PROGRAMS DIRECTOR Work Phone: [facility] Work Phone: Start: 09-23-2022 End: 09-23-2022 ambulatory MARIA R DISLA Facility:[facility] Start: 09-20-2022 End: 09-20-2022 ambulatory MARIA R DISLA Facility:[facility] Start: 07-07-2022 End: 07-07-2022 Departed Referred [facility] [place] Work Phone: Start: 07-07-2022 End: 07-07-2022 ambulatory NON STAFF [facility] Work Phone: Start: 07-07-2022 Office outpatient vi sit 25 minutes Radhika Enrique [facility] Start: 07-04-2022 End: 07-04-2022 Emergency department patient visit [facility] Work Phone: Start: 06-17-2022 End: 06-17-2022 ambulatory Maria R Disla Other [facility] Other Start: 06-17-2022 Telephone encounter Maria R simmons [facility] Start: 05-01-2022 End: 05-01-2022 ambulatory MARIA R NAIF Facility:[facility] Start: 03-24-2022 End: 03-24-2022 ambulatory Maria R Naif Other [facility] Other Start: 03-24-2022 Telephone encounter Maria R Breaul t [facility] Start: 01-27-2022 End: 01-27-2022 ambulatory Radhika Iva Other [facility] Other Start: 01-27-2022 Office outpatient vi sit 15 minutes Radhika Via [facility] Start: 01-14-2022 End: 01-14-2022 ambulatory MARIA R NAIF Facility:[facility] Start: 11-26-2021 End: 11-26-2021 ambulatory Maria R Naif Other [facility] Other Start: 11-26-2021 Office outpatient vi sit 15 minutes Maria R Naif [facility] Start: 11-11-2021 End: 11-11-2021 ambulatory Maria R Naif Other [facility] Other Start: 11-11-2021 Office outpatient vi sit 25 minutes Maria R Naif [facility] Start: 10-28-2021 End: 10-28-2021 ambulatory MARIA R NAIF Facility:[facility] Start: 10-14-2021 End: 10-14-2021 ambulatory Maria R Naif Other [facility] Other Start: 10-14-2021 Office outpatient vi sit 15 minutes Maria R Naif [facility] Start: 08-18-2021 End: 08-18-2021 ambulatory Maria R Naif Other [facility] Other Start: 08-18-2021 Telephone encounter Maria R Breaul t [facility] Start: 06-21-2021 End: 06-21-2021 ambulatory Radhika Enrique Other [facility] Other Start: 06-21-2021 Office outpatient vi sit 5 minutes Radhika Enrique [facility] Start: 05-28-2021 End: 05-28-2021 ambulatory Maria R Disla Other [facility] Other Start: 05-28-2021 Telephone encounter Maria R Breaul t [facility] Start: 04-10-2021 End: 04-10-2021 ambulatory Maria R Naif Other [facility] Other Start: 04-10-2021 Telephone encounter Maria R Breaul t [facility] Start: 03-30-2021 End: 03-30-2021 ambulatory Maria R Naif Other [facility] Other Start: 03-30-2021 Office outpatient vi sit 15 minutes Maria R Naif [facility] Start: 03-07-2021 Office outpatient vi sit 15 minutes Maria R Naif [facility] Start: 02-26-2021 Office outpatient vi sit 15 minutes Maria R Naif [facility] Procedures Date Procedure Procedure Detail Performing Clinician Start: 01-20-2024 Quick Strep (POC) Start: 11-13-2023 X-ray of right ankle Start: 11-13-2023 X-ray of right foot Start: 03-12-2023 Us abdominal real time w/image limited Allie Larson APRN.PROGRAMS DIRECTOR Work Phone: Start: 03-03-2023 Level iv surg pathology gross&microscopic exam Shelly Parsons DO Work Phone: Start: 03-03-2023 Esophagogastroduodenoscopy transoral diagnostic Norberto Malone MD Work Phone: Start: 02-11-2023 Ecg routine ecg w/least 12 lds i&r only Allie Neo PELT SHEARER.PROGRAMS DIRECTOR Work Phone: Start: 01-30-2023 Radiologic exam chest 2 views Allie melo PELT SHEARER.PROGRAMS DIRECTOR Work Phone: Start: 07-04-2022 Urine culture Plan of Treatment Date Care Activity Detail Author Start: 07-07-2032 Urine microalbumin profile [facility] Start: 02-02-2024 [facility] Start: 01-24-2024 Covid-19 Vaccine () Covid-19 Vaccine () [facility] Start: 01-24-2024 Influenza vaccination Influenza Vacc ine (#1) [facility] Start: 01-23-2023 Influenza vaccination [facility] Start: 01-19-2023 End: 03-21-2023 25-hydroxyvitamin D3 [Mass/volume] in Serum or Plasma VITAMIN D 25 HYDROXY Lab Routine Pre-op evaluation Class 3 severe obesity with serious comorbidity and body mass index (BMI) of 40.0 to 44.9 in adult, unspecified obesity type (HCC) Expected: 01/19/2023, Expires: 03/21/2023 [facility] Work Phone: Comment on above: Expected: 01/19/2023 , Expires: 03/21/2023 Start: 01-19-2023 End: 03-21-2023 CBC W Auto Differential panel - Blood CBC + DIFF Lab Routine Pre-op evaluation Class 3 severe obesity with serious comorbidity and body mass index (BMI) of 40.0 to 44.9 in adult, unspecified obesity type (HCC) Expected: 01/19/2023, Expires: 03/21/2023 [facility] Work Phone: Comment on above: Expected: 01/19/2023 , Expires: 03/21/2023 Start: 01-19-2023 End: 03-21-2023 Cobalamin (Vitamin B12) [Mass/volume] in Serum or Plasma VITAMIN B12 BLOOD Lab Routine Pre-op evaluation Class 3 severe obesity with serious comorbidity and body mass index (BMI) of 40.0 to 44.9 in adult, unspecified obesity type (HCC) Expected: 01/19/2023, Expires: 03/21/2023 [facility] Work Phone: Comment on above: Expected: 01/19/2023 , Expires: 03/21/2023 Start: 01-19-2023 End: 03-21-2023 Comprehensive metabolic 2000 panel - Serum or Plasma COMP METABOLIC PANEL Lab Routine Pre-op evaluation Class 3 severe obesity with serious comorbidity and body mass index (BMI) of 40.0 to 44.9 in adult, unspecified obesity type (HCC) Expected: 01/19/2023, Expires: 03/21/2023 [facility] Work Phone: Comment on above: Expected: 01/19/2023 , Expires: 03/21/2023 Start: 01-19-2023 End: 03-21-2023 Ferritin [Mass/volume] in Serum or Plasma FERRITIN BLD Lab Routine Pre-op evaluation Class 3 severe obesity with serious comorbidity and body mass index (BMI) of 40.0 to 44.9 in adult, unspecified obesity type (HCC) Expected: 01/19/2023, Expires: 03/21/2023 [facility] Work Phone: Comment on above: Expected: 01/19/2023 , Expires: 03/21/2023 Start: 01-19-2023 End: 03-21-2023 Folate [Mass/volume] in Serum or Plasma FOLATE SERUM Lab Routine Pre-op evaluation Class 3 severe obesity with serious comorbidity and body mass index (BMI) of 40.0 to 44.9 in adult, unspecified obesity type (HCC) Expected: 01/19/2023, Expires: 03/21/2023 [facility] Work Phone: Comment on above: Expected: 01/19/2023 , Expires: 03/21/2023 Start: 01-19-2023 End: 03-21-2023 Hemoglobin A1c in Blood HGB A1C Lab Routine Pre-op evaluation Class 3 severe obesity with serious comorbidity and body mass index (BMI) of 40.0 to 44.9 in adult, unspecified obesity type (HCC) Expected: 01/19/2023, Expires: 03/21/2023 [facility] Work Phone: Comment on above: Expected: 01/19/2023 , Expires: 03/21/2023 Start: 01-19-2023 End: 03-21-2023 Iron and Iron binding capacity panel - Serum or Plasma IRON + TIBC Lab Routine Pre-op evaluation Class 3 severe obesity with serious comorbidity and body mass index (BMI) of 40.0 to 44.9 in adult, unspecified obesity type (HCC) Expected: 01/19/2023, Expires: 03/21/2023 [facility] Work Phone: Comment on above: Expected: 01/19/2023 , Expires: 03/21/2023 Start: 01-19-2023 End: 03-21-2023 Lipid 1996 panel - Serum or Plasma LIPID PANEL BASIC Lab Routine Pre-op evaluation Class 3 severe obesity with serious comorbidity and body mass index (BMI) of 40.0 to 44.9 in adult, unspecified obesity type (HCC) Expected: 01/19/2023, Expires: 03/21/2023 [facility] Work Phone: Comment on above: Expected: 01/19/2023 , Expires: 03/21/2023 Start: 01-19-2023 End: 03-21-2023 Natriuretic peptide.B prohormone N-Terminal [Mass/volume] in Serum or Plasma NT PRO BNP Lab Routine Pre-op evaluation Class 3 severe obesity with serious comorbidity and body mass index (BMI) of 40.0 to 44.9 in adult, unspecified obesity type (HCC) Expected: 01/19/2023, Expires: 03/21/2023 [facility] Work Phone: Comment on above: Expected: 01/19/2023 , Expires: 03/21/2023 Start: 01-19-2023 End: 03-21-2023 NICOTINE & METAB, UR NICOTINE & METAB, UR Lab Routine Pre-op evaluation Class 3 severe obesity with serious comorbidity and body mass index (BMI) of 40.0 to 44.9 in adult, unspecified obesity type (HCC) Expected: 01/19/2023, Expires: 03/21/2023 [facility] Work Phone: Comment on above: Expected: 01/19/2023 , Expires: 03/21/2023 Start: 01-19-2023 End: 03-21-2023 Thyrotropin [Units/volume] in Serum or Plasma TSH BLD Lab Routine Pre-op evaluation Class 3 severe obesity with serious comorbidity and body mass index (BMI) of 40.0 to 44.9 in adult, unspecified obesity type (HCC) Expected: 01/19/2023, Expires: 03/21/2023 [facility] Work Phone: Comment on above: Expected: 01/19/2023 , Expires: 03/21/2023 Start: 01-19-2023 End: 03-21-2023 TOX SCREEN ROUT UR TOX SCREEN ROUT UR Lab Routine Pre-op evaluation Class 3 severe obesity with serious comorbidity and body mass index (BMI) of 40.0 to 44.9 in adult, unspecified obesity type (HCC) Expected: 01/19/2023, Expires: 03/21/2023 [facility] Work Phone: Comment on above: Expected: 01/19/2023 , Expires: 03/21/2023 Start: 01-19-2023 End: 03-21-2023 VITAMIN B1 (THIAMINE), WHOLE BLOOD VITAMIN B1 (THIAMINE), WHOLE BLOOD Lab Routine Pre-op evaluation Class 3 severe obesity with serious comorbidity and body mass index (BMI) of 40.0 to 44.9 in adult, unspecified obesity type (HCC) Expected: 01/19/2023, Expires: 03/21/2023 [facility] Work Phone: Comment on above: Expected: 01/19/2023 , Expires: 03/21/2023 Start: 07-07-2022 Bacteria identified in Urine by Culture [facility] Start: 2022 PAP TESTING PAP TESTING [facility] Start: 2022 Screening for malign ant neoplasm of cervix Cervical Cancer Screening [facility] Start: 2019 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 Start: 2019 HIV SCREENING HIV SCREENING [facility] Start: 2019 HIV screening HIV Screening [facility] Start: 2019 Screening for Chlamy melvin trachomatis Chlamydia Screening () [facility] Start: 2019 SPIROMETRY SPIROMETRY [facility] Start: 2017 Meningococcal B Vacc ine: Consider Based On Risk (1 of 2 - Patient Seeks Protection) Meningococcal B Vaccine: Consider Based On Risk (1 of 2 - Patient Seeks Protection) [facility] Start: 2017 MENINGOCOCCAL B: Consider based on risk (1 of 2 - Patient Seeks Protection) MENINGOCOCCAL B: Consider based on risk (1 of 2 - Patient Seeks Protection) [facility] Start: 2015 PEDS TO ADULT TRANSI TION ANNUAL ASSESSMENT PEDS TO ADULT TRANSITION ANNUAL ASSESSMENT [facility] Start: 2013 PEDS TO ADULT TRANSI TION INITIAL DISCUSSION PEDS TO ADULT TRANSITION INITIAL DISCUSSION [facility] Start: 2007 PNEUMOCOCCAL (1 - PCV) PNEUMOCOCCAL (1 - PCV) [facility] Start: 2007 Pneumococcal vaccination Pneum ococcal Vaccine (1 - PCV) [facility] Start: 2001 COVID-19 VACCINE (#1) COVID-19 VACCI NE (#1) [facility] Atopobium vaginae DN A [Presence] in Vaginal fluid by HANNY with probe detection [facility] Bacterial vaginosis associated bacterium 2 DNA [Presence] in Vaginal fluid by HANNY with probe detection [facility] End: 01-20-2024 ECG COMPLETE ECG COMPLETE ECG Routine Pre-op evaluation Class 3 severe obesity with serious comorbidity and body mass index (BMI) of 40.0 to 44.9 in adult, unspecified obesity type (HCC) 1 Occurrences starting 01/19/2023 until 01/20/2024 [facility] Work Phone: Comment on above: 1 Occurrences starti ng 01/19/2023 until 01/20/2024 ECG COMPLETE ECG COMPLETE ECG Routine Pre-op evaluation Class 3 severe obesity with serious comorbidity and body mass index (BMI) of 40.0 to 44.9 in adult, unspecified obesity type (HCC) 02/11/2023 8:29 AM EDT [facility] Work Phone: End: 01-19-2024 HOME SLEEP APNEA TEST (HSAT) HOME SLEEP APNEA TEST (HSAT) Procedures Routine Pre-op evaluation Class 3 severe obesity with serious comorbidity and body mass index (BMI) of 40.0 to 44.9 in adult, unspecified obesity type (HCC) 1 Occurrences starting 01/19/2023 until 01/19/2024 [facility] Work Phone: Comment on above: 1 Occurrences starti ng 01/19/2023 until 01/19/2024 Megasphaera sp type 1 DNA [Presence] in Vaginal fluid by HANNY with probe detection [facility] Patient referral [facility] Work Phone: End: 02-18-2024 Radiologic exam chest 2 views XR CHEST 2V FRONTAL/LAT Radiology Routine Pre-op evaluation Class 3 severe obesity with serious comorbidity and body mass index (BMI) of 40.0 to 44.9 in adult, unspecified obesity type (HCC) 1 Occurrences starting 01/19/2023 until 02/18/2024 [facility] Work Phone: Comment on above: 1 Occurrences starti ng 01/19/2023 until 02/18/2024 End: 02-18-2024 US ABD RIGHT UPPER QUADRANT US ABD RIGHT UPPER QUADRANT Radiology Routine Pre-op evaluation Class 3 severe obesity with serious comorbidity and body mass index (BMI) of 40.0 to 44.9 in adult, unspecified obesity type (HCC) 1 Occurrences starting 01/19/2023 until 02/18/2024 [facility] Work Phone: Comment on above: 1 Occurrences starti ng 01/19/2023 until 02/18/2024 [facility] Immun[facility] Immunization Date Immunization Notes Care Provider Patty miramontes 07-07-2022 tetanus toxoid, redu himanshu diphtheria toxoid, and acellular pertussis vaccine, adsorbed Maria R Disla Other [facility] Work Phone: 04-07-2020 influenza, injectabl e, quadrivalent, contains preservative Allie Larson PELT SHEARER.[facility] Work Phone: [facility] Work Phone: 04-07-2020 influenza virus vacc ine, unspecified formulation [facility] 03-14-2019 influenza, injectabl e, quadrivalent, contains preservative Maria R Disla Other [facility] Work Phone: 03-14-2019 influenza, injectabl e, quadrivalent, preservative [facility] 09-13-2018 meningococcal oligosaccharide (groups A, C, Y and W-135) diphtheria toxoid conjugate vaccine (MCV4O) Allie Larson PELT SHEARER.PROGRAMS DIRECTOR Work Phone: [facility] Work Phone: 02-21-2014 influenza, seasonal, injectable Allie Larson PELT SHEARER.[facility] Work Phone: [facility] Work Phone: 07-07-2013 hepatitis A vaccine, pediatric/adolescent dosage, 2 dose schedule Allie Larson PELT SHEARER.[facility] Work Phone: [facility] Work Phone: 07-07-2013 meningococcal polysaccharide (groups A, C, Y and W-135) diphtheria toxoid conjugate vaccine (MCV4P) Allie Larson PELT SHEARER.PROGRAMS DIRECTOR Work Phone: [facility] Work Phone: 07-07-2013 tetanus toxoid, redu himanshu diphtheria toxoid, and acellular pertussis vaccine, adsorbed Allie Larson PELT SHEARER.PROGRAMS DIRECTOR Work Phone: [facility] Work Phone: 03-16-2013 Human Papillomavirus 9-valent vaccine Allie Larson PELT SHEARER.PROGRAMS DIRECTOR Work Phone: [facility] Work Phone: 03-16-2013 influenza, injectabl e, quadrivalent, preservative free Allie Larson APRN.PROGRAMS DIRECTOR Work Phone: [facility] Work Phone: 10-08-2011 Human Papillomavirus 9-valent vaccine Allie Larson APRN.PROGRAMS DIRECTOR Work Phone: [facility] Work Phone: 07-03-2011 Human Papillomavirus 9-valent vaccine Allie Larson APRN.PROGRAMS DIRECTOR Work Phone: [facility] Work Phone: 03-01-2008 hepatitis A vaccine, pediatric/adolescent dosage, 2 dose schedule Allie Larson APRN.PROGRAMS DIRECTOR Work Phone: [facility] Work Phone: 03-01-2008 varicella virus vaccine Cammie Larson APRN.[facility] Work Phone: [facility] Work Phone: 05-20-2005 influenza, seasonal, injectable Allie Larson APRN.PROGRAMS DIRECTOR Work Phone: [facility] Work Phone: 04-11-2005 influenza, seasonal, injectable Allie Larson APRN.PROGRAMS DIRECTOR Work Phone: [facility] Work Phone: 01-16-2005 diphtheria, tetanus toxoids and acellular pertussis vaccine, 5 pertussis antigens Allie Larson APRN.PROGRAMS DIRECTOR Work Phone: [facility] Work Phone: 01-16-2005 measles, mumps and rubella virus vaccine Allie Larson APRN.PROGRAMS DIRECTOR Work Phone: [facility] Work Phone: 01-16-2005 poliovirus vaccine, inactivated Allie Larson APRN.PROGRAMS DIRECTOR Work Phone: [facility] Work Phone: 06-27-2002 diphtheria, tetanus toxoids and acellular pertussis vaccine Allie Larson APRN.PROGRAMS DIRECTOR Work Phone: [facility] Work Phone: 06-27-2002 haemophilus influenz ae type b vaccine, PRP-T conjugate Allie Larson APRN.[facility] Work Phone: [facility] Work Phone: 02-02-2002 measles, mumps and rubella virus vaccine Allie Larson APRN.[facility] Work Phone: [facility] Work Phone: 02-02-2002 varicella virus vaccine Cammie Larson APRN.[facility] Work Phone: [facility] Work Phone: 2001 diphtheria, tetanus toxoids and acellular pertussis vaccine, unspecified formulation Allie Larson APRN.[facility] Work Phone: [facility] Work Phone: 2001 haemophilus influenz ae type b conjugate and Hepatitis B vaccine Allie Larson APRN.[facility] Work Phone: [facility] Work Phone: 2001 poliovirus vaccine, inactivated Allie Larson APRN.[facility] Work Phone: [facility] Work Phone: 2001 diphtheria, tetanus toxoids and acellular pertussis vaccine, unspecified formulation Allie Larson APRN.[facility] Work Phone: [facility] Work Phone: 2001 haemophilus influenz ae type b conjugate and Hepatitis B vaccine Allie Larson APRN.PROGRAMS DIRECTOR Work Phone: [facility] Work Phone: 2001 pneumococcal conjuga te vaccine, 7 valent Allie Larson APRN.[facility] Work Phone: [facility] Work Phone: 2001 poliovirus vaccine, inactivated Allie Larson APRN.PROGRAMS DIRECTOR Work Phone: [facility] Work Phone: 2001 diphtheria, tetanus toxoids and acellular pertussis vaccine, unspecified formulation Allie Neo PELT SHEARER.PROGRAMS DIRECTOR Work Phone: [facility] Work Phone: 2001 haemophilus influenz ae type b conjugate and Hepatitis B vaccine Allie Neo PELT SHEARER.PROGRAMS DIRECTOR Work Phone: [facility] Work Phone: 2001 pneumococcal conjuga te vaccine, 7 valent Alliemariana Larson PELT SHEARER.PROGRAMS DIRECTOR Work Phone: [facility] Work Phone: 2001 poliovirus vaccine, inactivated Allie Neo PELT SHEARER.PROGRAMS DIRECTOR Work Phone: [facility] Work Phone: Payers Date Payer Category Payer Self-pay [id number] 2022 Medicaid [id number] 2001 Unknown [id number] 2.16.84 [id number] 2001 Unknown [id number] 2.16.84 [id number] 2001 Unknown [id number] 2.16.84 [id number] 2001 Unknown [id number] 2.16.84 [id number] 2001 Unknown [id number] 2.16.84 [id number] 2001 Unknown [id number] 2.16.840 .[id number] 2001 Unknown [id number] 2.16.8 [id number] 2001 Unknown [id number] 2.16.8 [id number] 1959 Medicaid [id number] 1959 Unknown [id number] 2.1 [id number] Medicaid [id number] Medicaid [id number] 2. [id number] Unknown [id number] 2.1 [id number] Unknown [id number] 2.16.8 [id number] Unknown [id number] 2.16.8 [id number] Social History Date Type Detail Facility Unknown if ever smoked [facility] Other Start: 01-19-2023 End: 01-30-2023 Sex Assigned At [facility] Other Start: 07-04-2022 End: 01-20-2024 Tobacco smoking status NJIS Smoker (finding) [facility] Start: 2001 Sex Assigned At Female [facility] Start: 01-19-2023 End: 03-03-2023 Tobacco smoking status [facility] Never smoked tobacco [facility] Work Phone: Start: 01-19-2023 End: 03-03-2023 Tobacco use and exposure Smokeless tobacco non-user [facility] Work Phone: Start: 01-19-2023 End: 03-03-2023 Alcohol intake Current drinker of alcohol (finding) [facility] Start: 01-19-2023 End: 01-30-2023 History of Social function [facility] National Score (1-10 0), lower number is lower risk 76 [facility] Start: 01-19-2023 Tobacco Comment vaping [facility] Start: 01-19-2023 Alcohol Comment once a month [facility] Start: 01-17-2023 Gender identity Identifies as female gender (finding) [facility] Start: 01-17-2023 Sexual orientation Bisexual (finding) [facility] Start: 03-03-2023 Tobacco Comment vaping- Quit 02/02/23 [facility] Clinical Notes 02-26-2021 to 04-03-2023 Shelly Parsons DO - 03/03/2023 3:00 PM Shelly Bean DO - 03/03/2023 3:00 PM Meghann Lo RN - 03/03/2023 10:31 AM Meghann Lo RN - 03/03/2023 10:31 AM EDTPatient Instructions Note Date & Type Note Facility 04-03-2023 Note HNO ID: [id number] Author: Netta Dillard, PhD Service: ? Author Type: Psychologist Type: Progress Notes Filed: 04/07/2023 7:48 AM Note Text: [facility] Bariatric Behavioral Services Progress Note April 06, 2023 Patient was a no-show. Netta Dillard, Ph.D. Psychologist [facility] 03-03-2023 History and physical note HISTORY AND PHYSICAL Saroj Membreno, 23 year old female Current history and physical on file: No Is a new History and Physical required for today's visit? Yes Indication for procedure: Other Pre-op PROCEDURE(S) SCHEDULED FOR: EGD (Esophagogastroduodenoscopy) with or without biopsies, removal of polyps or lesions, dilation ( any means), treatment of bleeding ( any means), Barrx treatment of Dandy's Esophagus, image tube placement or cryo therapy treatment based on clinical findings. BASELINE BEHAVIOR: Calm BASELINE ORIENTATION: A & O x3 All medications and allergies reviewed: Yes Skin Assessment: Warm dry mucus membranes pink Airway/Respiratory Assessment: Airway: visualization of the uvula- Yes Mouth: opening greater than 2 fingerbreadths- Yes Neck: full range of motion- Yes Breath sounds clear/equal- Yes Cardiac Assessment: Regular rate and rhythm without murmur Abdominal Assessment: Abdomen soft, non-tender, no masses or organomegaly. Sedation Plan: MAC Additional Comments: None Shelly Parsons DO [facility] Work Phone: 03-03-2023 History and physical note HISTORY AND PHYSICAL Saroj Membreno, 23 year old female Current history and physical on file: No Is a new History and Physical required for today's visit? Yes Indication for procedure: Other Pre-op PROCEDURE(S) SCHEDULED FOR: EGD (Esophagogastroduodenoscopy) with or without biopsies, removal of polyps or lesions, dilation ( any means), treatment of bleeding ( any means), Barrx treatment of Dandy's Esophagus, image tube placement or cryo therapy treatment based on clinical findings. BASELINE BEHAVIOR: Calm BASELINE ORIENTATION: A & O x3 All medications and allergies reviewed: Yes Skin Assessment: Warm dry mucus membranes pink Airway/Respiratory Assessment: Airway: visualization of the uvula- Yes Mouth: opening greater than 2 fingerbreadths- Yes Neck: full range of motion- Yes Breath sounds clear/equal- Yes Cardiac Assessment: Regular rate and rhythm without murmur Abdominal Assessment: Abdomen soft, non-tender, no masses or organomegaly. Sedation Plan: MAC Additional Comments: None Shelly Parsons DO documented in this encounter [facility] 03-03-2023 Nurse Note POST OP LEARNING RESPONSE INSTRUCTION PROVIDED TO: Patient METHOD OF INSTRUCTION: Written instruction - handouts Verbal instruction PATIENT / FAMILY RESPONSE: Verbalizes understanding of: POST-PROCEDURE INSTRUCTIONS-Correct actions to take to reduce post procedure complications FOLLOW-UP PLAN: Patient instructed to call with any further issues SUPPLEMENTAL MATERIAL: Post sedation instructions given REFERRAL (RECOMMENDATION): None Electronically Signed By: Meghann Escalante RN In Department: AMBULATORY SURGERY [facility] 03-03-2023 Nurse Note POST OP LEARNING RESPONSE INSTRUCTION PROVIDED TO: Patient METHOD OF INSTRUCTION: Written instruction - handouts Verbal instruction PATIENT / FAMILY RESPONSE: Verbalizes understanding of: POST-PROCEDURE INSTRUCTIONS-Correct actions to take to reduce post procedure complications FOLLOW-UP PLAN: Patient instructed to call with any further issues SUPPLEMENTAL MATERIAL: Post sedation instructions given REFERRAL (RECOMMENDATION): None Electronically Signed By: Meghann Escalante RN In Department: AMBULATORY SURGERY PRE OP LEARNING ASSESSMENT PROCEDURE/SURGERY: GI PROCEDURES: EGD READINESS TO LEARN COGNITIVE ABILITY: Alert and oriented MOTIVATION TO LEARN: Interested FAMILY SUPPORT: High - Very involved in pt care PATIENT LEARNS BEST BY: Written Instruction - Hand-outs Verbal Instruction FACTORS AFFECTING LEARNING: None PHYSICAL LIMITATIONS AFFECTING LEARNING: None Electronically Signed By: Bia Price RN In Department: AMBULATORY SURGERY documented in this encounter [facility] 03-03-2023 Nurse Note PRE OP LEARNING ASSESSMENT PROCEDURE/SURGERY: GI PROCEDURES: EGD READINESS TO LEARN COGNITIVE ABILITY: Alert and oriented MOTIVATION TO LEARN: Interested FAMILY SUPPORT: High - Very involved in pt care PATIENT LEARNS BEST BY: Written Instruction - Hand-outs Verbal Instruction FACTORS AFFECTING LEARNING: None PHYSICAL LIMITATIONS AFFECTING LEARNING: None Electronically Signed By: Bia Price RN In Department: AMBULATORY SURGERY [facility] 02-25-2023 Miscellaneous Notes Lm to confirm procedure for 03-03-23 documented in this encounter [facility] 02-16-2023 Note HNO ID: [id number] Author: Eugenia Chaudhary Service: ? Author Type: ? Type: Progress Notes Filed: 02/16/2023 1:25 PM Note Text: Sleep Study Check-In Documentation Date: February 16, 2023 Name: Saroj Membreno Comments: HST was returned in working order with all sleep questionnaires Eugenia Chaudhary [facility] 02-16-2023 History of Presen t illness Narrative Sleep Study Check-In Documentation Date: February 16, 2023 Name: Saroj Membreno Comments: HST was returned in working order with all sleep questionnaires Eugenia Chaudhary February 11, 2023 Standing PSG Orders signed in the last 90 days None Future PSG Orders signed in the last 90 days Ordered Auth. provider HOME SLEEP APNEA TEST (HSAT) [[id number]] 01/19/23 Allie Larson APRN.PROGRAMS DIRECTOR Assoc. diagnoses: Pre-op evaluation [Z01.818], Class 3 severe obesity with serious comorbidity and body mass index (BMI) of 40.0 to 44.9 in adult, unspecified obesity type (HCC) [E66.01, Z68.41] Q: Indications: A: Obstructive sleep apnea Q: STOP-BANG conditions - Select All That Apply: A: BMI > 35 kg/m2 A2: SNORING that is loud or disruptive A3: TIREDNESS, fatigue or sleepiness during the day A4: OBSERVED sleep apnea Q: Current use of supplemental oxygen during sleep period?: A: No All Prior Sleep Studies (past 365 days) Some values may be hidden. Unless noted otherwise, only the newest values recorded on each date are displayed. Sleep Studies HOME SLEEP APNEA TEST (HSAT) Future Expected: Expires: 01/19/24 BMI Readings from Last 2 Encounters: 02/04/23 : 42.91 kg/m 01/30/23 : 43.10 kg/m PAST MEDICAL HISTORY Diagnosis Date ADHD (attention deficit hyperactivity disorder) Anxiety and depression Asthma The medical record was reviewed to determine if the proposed sleep study conforms to the AASM Practice Parameters for the Indications for Polysomnography and Related Procedures, or if the sleep study is indicated for other reasons. Indications for study: GUS suspected with comorbid medical or sleep disorders: Morbid obesity (BMI>40 kg/m2) Sleep study to be performed: Home Sleep Apnea Test (HSAT) Special instructions: None-follow laboratory protocol Nancy Freeman - Sleep Medicine Staff Note: I have read the above protocol, edited as needed, and agree to the plan. Kelvin Gabriel III, PhD 12:15 PM, 02/11/2023 Nomad# [id number] +GPS , Date shipped out: 02/11/23 SENT FEDEX DELIVERY - FEDEX RETURN Tracking mailout: [phone] [id number] Tracking return: [phone] [id number] February 01, 2023 An order has been received for Home Sleep Apnea Test (HSAT) from Allie Sales APRN.alaina NGUYỄN. [facility] Staff. Visit prep complete. Comments :No The sleep study is scheduled for 02/21. Insurance: Payor: [employer] MEDICAID / Plan[facility] / Product Type: Medicaid / Payer/Plan Subscr Sex Relation Sub. Ins. ID Effective Group Num 1. ANTHEM MEDICA* SAROJ MEMBRENO 01 Female Self [id number] [birth year] [address] Katharina Blood documented in this encounter [facility] 02-12-2023 Note HNO ID: [id number] Author: Netta Dillard, PhD Service: ? Author Type: Psychologist Type: Progress Notes Filed: 02/18/2023 12:31 PM Note Text: [facility] Bariatric Behavioral Services Progress Note February 16, 2023 Patient cancelled today's appt. Netta Dillard, Ph.D. Psychologist [facility] 02-11-2023 Note HNO ID: [id number] Author: Kelvin Gabriel III, PhD Service: ? Author Type: Physician Type: Progress Notes Filed: 02/16/2023 1:25 PM Note Text: February 11, 2023 Standing PSG Orders signed in the last 90 days None Future PSG Orders signed in the last 90 days Ordered Auth. provider HOME SLEEP APNEA TEST (HSAT) [[id number]] 01/19/23 Allie Larson APRN.PROGRAMS DIRECTOR Assoc. diagnoses: Pre-op evaluation [Z01.818], Class 3 severe obesity with serious comorbidity and body mass index (BMI) of 40.0 to 44.9 in adult, unspecified obesity type (HCC) [E66.01, Z68.41] Q: Indications: A: Obstructive sleep apnea Q: STOP-BANG conditions - Select All That Apply: A: BMI > 35 kg/m2 A2: SNORING that is loud or disruptive A3: TIREDNESS, fatigue or sleepiness during the day A4: OBSERVED sleep apnea Q: Current use of supplemental oxygen during sleep period?: A: No All Prior Sleep Studies (past 365 days) Some values may be hidden. Unless noted otherwise, only the newest values recorded on each date are displayed. Sleep Studies HOME SLEEP APNEA TEST (HSAT) Future Expected: Expires: 01/19/24 BMI Readings from Last 2 Encounters: 02/04/23 : 42.91 kg/m? 01/30/23 : 43.10 kg/m? PAST MEDICAL HISTORY Diagnosis Date ADHD (attention deficit hyperactivity disorder) Anxiety and depression Asthma The medical record was reviewed to determine if the proposed sleep study conforms to the AASM Practice Parameters for the Indications for Polysomnography and Related Procedures, or if the sleep study is indicated for other reasons. Indications for study: GUS suspected with comorbid medical or sleep disorders: Morbid obesity (BMI>40 kg/m2) Sleep study to be performed: Home Sleep Apnea Test (HSAT) Special instructions: None-follow laboratory protocol Nancy Pete - Sleep Medicine Staff Note: I have read the above protocol, edited as needed, and agree to the plan. Kelvin Gabriel III, PhD 12:15 PM, 02/11/2023 [facility] 02-11-2023 Nurse Note Ekg completed. Pt with no voiced complaints. Provider cc'd of completion. documented in this encounter [facility] 02-10-2023 Note HNO ID: [id number] Author: Temo Torres Service: ? Author Type: ? Type: Progress Notes Filed: 02/16/2023 1:25 PM Note Text: Nomad# [id number] +GPS , Date shipped out: 02/11/23 SENT FEDEX DELIVERY - FEDEX RETURN Tracking mailout: [phone] [id number] Tracking return: [phone] [id number] [facility] 02-10-[address] - 02/10/2023 1:39 PM EDT NUTRITION CARE PLAN Nutrition Intervention 02/04/2023: Modify type and amount of food consumed at meals and snacks Before your next visit, read the Nutritional Guidelines section of Your Guide to Surgery. [email or web address] [email or web address]/[email or web address]-edu [email or web address]/videos-guides#guides-tab 2. Drink 64 oz of fluids each day. Follow these guidelines: no carbonation, no caffeine, no calories, no alcohol. 3. Have 3 meals every day. Do not skip meals. If you feel hungry, add 1-2 snacks. 4. Use a protein shake once a day to replace any skipped meals or for breakfast. Pair with a piece of fruit. Shakes should 200 calories or less and at least 15-20 grams protein. Slim Fast Advanced Nutrition (20 grams protein) [place] Breakfast Essentials Light Start mixed with 1%/skim milk Atkins Protein Shake (15 gm protein version) Boost Glucose Control (16 grams protein) OWYN (20 gm protein and 180 calories version) 5. You need 79 grams of protein every day. Have a protein food with all meals and snacks. Get your protein from: lean meat, fish, eggs, low-fat dairy (cottage/ricotta cheese, filipino/light yogurt, cheese), nuts, nut butters, beans/legumes. 6. Use the Healthy Plate for portion control at lunch and dinner. plate (3-4 oz) lean protein (chicken, fish, eggs, beef, pork tenderloin, seafood) plate (1-2 c) non-starchy vegetables (salad, broccoli, carrots, spinach, green beans) plate (1 c) starch/starchy vegetable (potato, rice, viandas, pasta, corn, peas) 7. Physical activity: begin walking. 8. Practice Mindful Eating: Follow the 30 Minute Rule. Separate eating and drinking by 30 minutes, do not drink during meals Meals should last 20-30 minutes Take small bites, chew your food slowly STOP eating when you are full 9. Review the attached sheet - Check List Preparing for Bariatric Surgery (pre-op shakes and post-op vitamins), try some of the protein shakes indicated to prepare for surgery and investigate the indicated websites to familiarize yourself with post-op vitamin selections Protein needs: 79 grams per day Pre-op goal weight: 243 pounds Nutrition Monitoring & Evaluation: weight loss of 1-2 lbs/week Need for Follow up: 2-4 weeks documented in this encounter [facility] 02-10-2023 Miscellaneous Notes Noted, thank you Smoking Cessation Navigation Outcome of contact: Spoke with Intervention Chosen By Patient: Other Comments: Patient quit last week. [employer] Engineer/Smoking Cessation Navigator: [facility] 02/10/2023 10:12 AM EDT documented in this encounter [facility] 02-04-2023 Note HNO ID: [id number] Author: Sasha Xie RD Service: ? Author Type: Registered Dietitian Type: Progress Notes Filed: 02/10/2023 1:40 PM Note Text: Nutrition Therapy Initial Assessment I have communicated my name and active licensure. The patient?s identity and physical location were verified at the time of this visit. Either the patient or their legal food service representative has been informed of the risks and benefits of -- and alternatives to -- treatment through a remote evaluation and consents to proceed with the evaluation remotely. Nutrition Diagnosis: Overweight/obesity, related to, food/nutrition - related knowledge deficit, as evidenced by BMI above normative standard for age and gender. RECOMMENDED MALNUTRITION DIAGNOSIS: NO MALNUTRITION IDENTIFIED NUTRITION CARE PLAN Nutrition Intervention 02/04/2023: Modify type and amount of food consumed at meals and snacks Before your next visit, read the Nutritional Guidelines section of Your Guide to Surgery. [email or web address] [email or web address]/[email or web address]/patient-edu [email or web address]/vide os-guides#guides-tab 2. Drink 64 oz of fluids each day. Follow these guidelines: no carbonation, no caffeine, no calories, no alcohol. 3. Have 3 meals every day. Do not skip meals. If you feel hungry, add 1-2 snacks. 4. Use a protein shake once a day to replace any skipped meals or for breakfast. Pair with a piece of fruit. Shakes should 200 calories or less and at least 15-20 grams protein. Slim Fast Advanced Nutrition (20 grams protein) [place] Breakfast Essentials Light Start mixed with 1%/skim milk Atkins Protein Shake (15 gm protein version) Boost Glucose Control (16 grams protein) OWYN (20 gm protein and 180 calories version) 5. You need 79 grams of protein every day. Have a protein food with all meals and snacks. Get your protein from: lean meat, fish, eggs, low-fat dairy (cottage/ricotta cheese, filipino/light yogurt, cheese), nuts, nut butters, beans/legumes. 6. Use the Healthy Plate for portion control at lunch and dinner. ? plate (3-4 oz) lean protein (chicken, fish, eggs, beef, pork tenderloin, seafood) ? plate (1-2 c) non-starchy vegetables (salad, broccoli, carrots, spinach, green beans) ? plate (1 c) starch/starchy vegetable (potato, rice, viandas, pasta, corn, peas) 7. Physical activity: begin walking. 8. Practice Mindful Eating: Follow the ?30 Minute Rule.? Separate eating and drinking by 30 minutes, do not drink during meals Meals should last 20-30 minutes Take small bites, chew your food slowly STOP eating when you are full 9. Review the attached sheet - Check List Preparing for Bariatric Surgery (pre-op shakes and post-op vitamins), try some of the protein shakes indicated to prepare for surgery and investigate the indicated websites to familiarize yourself with post-op vitamin selections Protein needs: 79 grams per day Pre-op goal weight: 243 pounds Nutrition Monitoring AND Evaluation: weight loss of 1-2 lbs/week Need for Follow up: 2-4 weeks Patient presents for Virtual MNT Initial Assessment in preparation for weight loss surgery, interested in RYGB, with Dr. Malone. Height and weight taken today, indicating Class 3 obesity, BMI 42.91 kg/m2. Significant co-morbidities include ADHD, asthma, anxiety. Labs: none. Initial weight 253 lbs/64 inches on 01/19/23. Patient has basic understanding of weight loss surgery and the nutritional implications following surgery. Patient has high weight loss expectations, anticipating weight loss of > 100 lbs (40% TBW), with goal weight 150 lbs or less following surgery. Previous diet attempts include RD visits as a child, self-directed diets (calorie counting), rx meds (victoza). She reports weight gain after stopping each attempt. Weight history significant for childhood overweight, yoyo diets, loss/gain. Greatest barrier to weight loss in the past has been poor diet and limited exercise. Diet recall indicates inconsistent meal pattern with weekly skipped meals (breaskfast), fried foods 3-4x week, sweets infrequently. Her general pattern is high in kcal from frequent intake of restaurant foods. Protein intake inconsistently meets needs (79.g/day). Fluids meet recommendations of 64 oz per day, with water as her primary beverage. Physical activity includes active ADL, at work no additional, below recommended 150-250 minutes per week of aerobic activity and muscle strengthening activity at least 2 non-consecutive days per week. Patient meets the National Institutes of Health guidelines for weight loss surgery and has [place] therefore is required to complete 0 months of Nutrition Intervention for clearance for surgery. Today is visit #1 ([place] 02/04/2023). Patient meets the National Institutes of Health guidelines for weight loss surgery however, needs to demonstrate consistent effort in making dietary changes before being cleared for surgery. (more content not included)... [facility] 02-04-2023 History of Presen t illness Narrative Nutrition Therapy Initial Assessment I have communicated my name and active licensure. The patient s identity and physical location were verified at the time of this visit. Either the patient or their legal food service representative has been informed of the risks and benefits of -- and alternatives to -- treatment through a remote evaluation and consents to proceed with the evaluation remotely. Nutrition Diagnosis: Overweight/obesity, related to, food/nutrition - related knowledge deficit, as evidenced by BMI above normative standard for age and gender. RECOMMENDED MALNUTRITION DIAGNOSIS: NO MALNUTRITION IDENTIFIED NUTRITION CARE PLAN Nutrition Intervention 02/04/2023: Modify type and amount of food consumed at meals and snacks Before your next visit, read the Nutritional Guidelines section of Your Guide to Surgery. [email or web address].[email or web address]/d epartments/[email or web address]/patient-edu cation/videos-guides#guides-tab 2. Drink 64 oz of fluids each day. Follow these guidelines: no carbonation, no caffeine, no calories, no alcohol. 3. Have 3 meals every day. Do not skip meals. If you feel hungry, add 1-2 snacks. 4. Use a protein shake once a day to replace any skipped meals or for breakfast. Pair with a piece of fruit. Shakes should 200 calories or less and at least 15-20 grams protein. Slim Fast Advanced Nutrition (20 grams protein) [place] Breakfast Essentials Light Start mixed with 1%/skim milk Atkins Protein Shake (15 gm protein version) Boost Glucose Control (16 grams protein) OWYN (20 gm protein and 180 calories version) 5. You need 79 grams of protein every day. Have a protein food with all meals and snacks. Get your protein from: lean meat, fish, eggs, low-fat dairy (cottage/ricotta cheese, filipino/light yogurt, cheese), nuts, nut butters, beans/legumes. 6. Use the Healthy Plate for portion control at lunch and dinner. plate (3-4 oz) lean protein (chicken, fish, eggs, beef, pork tenderloin, seafood) plate (1-2 c) non-starchy vegetables (salad, broccoli, carrots, spinach, green beans) plate (1 c) starch/starchy vegetable (potato, rice, viandas, pasta, corn, peas) 7. Physical activity: begin walking. 8. Practice Mindful Eating: Follow the 30 Minute Rule. Separate eating and drinking by 30 minutes, do not drink during meals Meals should last 20-30 minutes Take small bites, chew your food slowly STOP eating when you are full 9. Review the attached sheet - Check List Preparing for Bariatric Surgery (pre-op shakes and post-op vitamins), try some of the protein shakes indicated to prepare for surgery and investigate the indicated websites to familiarize yourself with post-op vitamin selections Protein needs: 79 grams per day Pre-op goal weight: 243 pounds Nutrition Monitoring & Evaluation: weight loss of 1-2 lbs/week Need for Follow up: 2-4 weeks Patient presents for Virtual MNT Initial Assessment in preparation for weight loss surgery, interested in RYGB, with Dr. Malone. Height and weight taken today, indicating Class 3 obesity, BMI 42.91 kg/m2. Significant co-morbidities include ADHD, asthma, anxiety. Labs: none. Initial weight 253 lbs/64 inches on 01/19/23. Patient has basic understanding of weight loss surgery and the nutritional implications following surgery. Patient has high weight loss expectations, anticipating weight loss of > 100 lbs (40% TBW), with goal weight 150 lbs or less following surgery. Previous diet attempts include RD visits as a child, self-directed diets (calorie counting), rx meds (victoza). She reports weight gain after stopping each attempt. Weight history significant for childhood overweight, yoyo diets, loss/gain. Greatest barrier to weight loss in the past has been poor diet and limited exercise. Diet recall indicates inconsistent meal pattern with weekly skipped meals (breaskfast), fried foods 3-4x week, sweets infrequently. Her general pattern is high in kcal from frequent intake of restaurant foods. Protein intake inconsistently meets needs (79.g/day). Fluids meet recommendations of 64 oz per day, with water as her primary beverage. Physical activity includes active ADL, at work no additional, below recommended 150-250 minutes per week of aerobic activity and muscle strengthening activity at least 2 non-consecutive days per week. Patient meets the National Institutes of Health guidelines for weight loss surgery and has [employer] therefore is required to complete 0 months of Nutrition Intervention for clearance for surgery. Today is visit #1 ([place] 02/04/2023). Patient meets the National Institutes of Health guidelines for weight loss surgery however, needs to demonstrate consistent effort in making dietary changes before being cleared for surgery. It is anticipated the patient will need an additional 1-3 supervised weight loss encounters prior to clearance for surgery. Patient's symptoms are: Weight Concerns: failure to lose weight Diet History: work week At work 1-2 meals/day At home 3 meals Breakfast - napping, skips during the week, on weekends - breaklfast burrito egg, sausage, pepper - cooks at home or [employer]onal[employer] Snack - skips Lunch - 1-3 pm - chick file delux chick sand, w/ mac and cheese and powerade OR Diana's burger, nuggets, small barr and drink Snack - none Dinner - 8-9 pm - home cooked - 2 burrito large tortilla, meat ,cheese, kaden, sour cream, taco sauce OR kittitian chicken w/ mexical rice and corn/green beans Snack - 3x week - pretzels and nutella Beverages - water 10-12 c/day, 2-3x week lemonade/vitamin water, chocolate milk Alcohol - none/occ Vitamins/Supplements - none Restaurants, pick-up, take-out: 3-4x week - Chick File, [place], Vietnamese Activity: Activities of Daily Living: Active 50% of the day. 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 Resting Metabolic Rate: 1879 Calculations based on weight taken 01/19/23, 253.4 lbs/64 inches [place] body weight: 145 lbs (65.9 kg) Excess body weight: 108 lbs (10% pre-op weight loss = 10 lbs) Pre-op goal weight: 243 lbs Protein needs estimated: 79 gm/day (1.2 - 1.5 g protein/kg IBW) Malnutrition Screening Significant unintentional weight loss? No Eating less than 75% of usual intake for more than 2 weeks? No Potential Signs of Inflammation: no identifiable sources Nutritional status: Education Materials Provided by [facility]: Healthy Plate, Lean Proteins, Nutrition Check List - Preparing for Bariatric Surgery READINESS TO LEARN Cognitive ability: Alert and oriented Motivation to learn: Interested Family support: Unable to assess - Family not present Instruction provided to: Patient Patient learns best by: Multiple Methods Factors affecting learning: None Physical limitations affecting learning: None Likelihood of Adherence: Moderate Referred/Supervised by: Faisal/Ronald VILLA Billing Type: Initial Assess/15 min 3 units SIGNATURE: Sasha Xie RD PATIENT NAME: Saroj Membreno DATE: February 04, 2023 TIME: 10:26 AM PAGER: xxxxx documented in this encounter [facility] 02-01-2023 Note HNO ID: [id number] Author: Katharina Blood Service: ? Author Type: ? Type: Progress Notes Filed: 02/16/2023 1:25 PM Note Text: February 01, 2023 An order has been received for Home Sleep Apnea Test (HSAT) from Allie Sales APRN.alaina NGUYỄN. [facility] Staff. Visit prep complete. Comments :No The sleep study is scheduled for 02/21. Insurance: Payor: [employer] MEDICAID / Plan[facility] / Product Type: Medicaid / Payer/Plan Subscr Sex Relation Sub. Ins. ID Effective Group Num 1. RAZA MEDICAlaina* ANNMARIE MEMBRENOTEN 01 Female Self [id number] [birth year] [id number] Katharina Blood [facility] 01-30-2023 Note HNO ID: [id number] Author: Cathie Ford RT(R) Service: Radiology Author Type: Filing Writer Type: Progress Notes Filed: 01/30/2023 10:50 AM Note Text: Radiology Service Progress Note PATIENT NAME: Saroj Membreno DATE OF SERVICE: January 30, 2023 TIME: 10:47 AM PATIENT IDENTITY VERIFICATION COMPLETED USING TWO (2) IDENTIFIERS: Name and Date of confirmed by patient verbally and Name and Date of confirmed by identification band. FALL SCREENING: Has the patient had 2 falls in the last year or 1 fall with injury or currently using an Ambulatory Assistive Device (Walker, Cane, Wheelchair, Crutches, etc.)? No PATIENT GENDER DATA: Female. status: : No status: NO. PATIENT RELEVANT IMPLANT DATA REVIEWED: Not Applicable RADIOLOGY DEPARTMENT: General X-ray: Exam(s) Completed: Chest X-Ray PERIPHERAL IV DATA: Not applicable SIGNED BY: RT Enrrique(R) January 30, 2023 10:47 AM [facility] 01-30-2023 Note HNO ID: [id number] Author: Norberto Malone MD Service: ? Author Type: Physician Type: Progress Notes Filed: 01/30/2023 3:35 PM Note Text: Assessment NEW BARIATRIC PATIENT PATIENT NAME: Saroj Membreno REASON FOR CONSULT: Morbid Obesity REQUESTING PHYSICIAN: Self DATE of SERVICE: 01/29/2023 TIME of SERVICE: 9:10 AM PCP: No primary care provider on file. CC: Morbid Obesity HPI: Ms. Membreno is a 23 year old female who is referred for evaluation for Bariatric surgery. Patient does not have any specific complaints today. Patient's obesity related chronic medical conditions include: Diabetes: No Hypertension: Yes Hyperlipedemia:No OA:No GUS: No DVT/PE:No Gastroesophageal reflux: No EGD: No Patient is inclined towards: Unsure History of abdominal surgeries: No PAST MEDICAL HISTORY: PAST MEDICAL HISTORY Diagnosis Date ADHD (attention deficit hyperactivity disorder) Anxiety and depression Asthma PAST SURGICAL HISTORY: PAST SURGICAL HISTORY Procedure Laterality Date EXTRACTION ERUPTED TOOTH/EXR wisdom teeth SOCIAL HISTORY: Social History Tobacco Use Smoking status: Never Smokeless tobacco: Never Tobacco comments: vaping Vaping Use Vaping Use: current everyday user Start date: 05/25/2018 Substances: Nicotine, 1 cartridge per week Substance Use Topics Alcohol use: Yes Comment: once a month Drug use: Yes Frequency: 7.0 times per week Types: Marijuana ALLERGIES: ALLERGIES Not on File FAMILY HISTORY: FAMILY HISTORY Problem Relation Age of Onset Blood Clots No Family History Heart Attack No Family History Anesthesia Problems No Family History MEDICATIONS: Prior to Admission Medications: ARIPiprazole (ABILIFY) 5 mg tablet Take 1 tablet by mouth once daily. Benzoyl Peroxide 10 % external wash Apply 1 Application to affected area once daily. clindamycin (CLEOCIN) 1 % external solution Apply 1 Application to affected area once daily. etonogestrel (NEXPLANON) subdermal implant 68 mg 1 Each by SUBDERMAL route. spironolactone (ALDACTONE) 50 mg tablet Take 1 tablet by mouth once daily. doxycycline hyclate (VIBRAMYCIN) 100 mg capsule Take 1 capsule by mouth once daily. No current facility-administered medications for this visit. FAMILY HISTORY: FAMILY HISTORY Problem Relation Age of Onset Blood Clots No Family History Heart Attack No Family History Anesthesia Problems No Family History Review of Systems: The remainder of the review of systems is negative. PHYSICAL EXAMINATION: BP 118/77 Pulse 76 Wt 113.4 kg (250 lb) LMP 12/29/2022 (Approximate) BMI 43.10 kg/m? General appearance: Well appearing, alert, in no acute distress, well-hydrated, well nourished. Skin: Skin color, texture, turgor normal, no suspicious rashes or lesions Head: Normocephalic, no masses, lesions, tenderness or abnormalities Eyes: Anicteric sclera. Extraocular movements are intact. Neck: Supple, no adenopathy; thyroid symmetric, normal size, Abdomen: Normal abdominal exam, Abdomen soft, non-tender. No masses, organomegaly Extremities: No deformities, edema, skin discoloration, clubbing or cyanosis. Good capillary refill. Musculoskeletal: No joint swelling, deformity, or tenderness Peripheral pulses: Normal Neuro: Gait normal. IMPRESSION Morbid Obesity PLAN: Patient is a very pleasant 23 year old with morbid obesity, patient of No primary care provider on file. with a Body mass index is 43.1 kg/m?.. Patient is here today seeking information regarding weight loss. Patient does not have any chronic comorbidities associated with morbid obesity, specifically she does not have any history of diabetes, hypertension. She additionally does not have any symptoms of GERD at this point although she did have it while she was on Victoza. I have discussed in detail patients options including sleeve gastrectomy and Graciela-en-Y gastric bypass. Based on patient's BMI and medical co morbidities patient would be a candidate for either sleeve gastrectomy/Graciela-en-Y gastric bypass but based on long-term benefits has decided to proceed with a gastric bypass. Patient meets NIH criteria for surgery. 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 I spent approximately 45 minutes with the patient with most of the time spent in counseling. I have reviewed with this patient probably and potential medical and surgical complications of bariatric surgery, nutritional changes, post-operative recovery, and the potential for excess skin and other cosmetic sequelae following surgery and subsequent weight loss. Risks of nicotine befor (more content not included)... [facility] 01-30-2023 History of Presen t illness Narrative Radiology Service Progress Note PATIENT NAME: Saroj Membreno DATE OF SERVICE: January 30, 2023 TIME: 10:47 AM PATIENT IDENTITY VERIFICATION COMPLETED USING TWO (2) IDENTIFIERS: Name and Date of confirmed by patient verbally and Name and Date of confirmed by identification band. FALL SCREENING: Has the patient had 2 falls in the last year or 1 fall with injury or currently using an Ambulatory Assistive Device (Walker, Cane, Wheelchair, Crutches, etc.)? No PATIENT GENDER DATA: Female. status: : No status: NO. PATIENT RELEVANT IMPLANT DATA REVIEWED: Not Applicable RADIOLOGY DEPARTMENT: General X-ray: Exam(s) Completed: Chest X-Ray PERIPHERAL IV DATA: Not applicable SIGNED BY: RT Enrrique(R) January 30, 2023 10:47 AM documented in this encounter [facility] 01-19-2023 Note HNO ID: [id number] Author: Allie Larson APRN.GOPI Service: ? Author Type: Nurse Practitioner Type: Progress Notes Filed: 01/19/2023 10:06 AM Note Text: BMI Obesity Medicine Initial Bariatric Surgery Consult January 19, 2023 Patient Summary:: Saroj Membreno is a 23 year old female who presents on January 19, 2023 for surgical evaluation and treatment of obesity. The patient is undecided on which surgical procedure to pursue with Dr. Malone. Primary reason for wanting obesity treatment : prevent comorbidities, improve quality of life Overall goal: ~180 lbs Weight History: She reports a family history of obesity and early onset weight gain. She states her weight gain is related to the following factors, including reduced physical activity, school stress. Prior Weight Loss Surgery: No Previous Obesity Treatments: commercial diets, self-directed, and exercise program. Weight Promoting Medications: None Weight Graph: (please see graph scanned in chart) Diet: Quality of diet: 24hr recall suggests unhealthy diet. Characterization of diet: Unstructured and skip meals. 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 None Stress test: no Functional Status: Climb a flight of stairs or walk up a hill (5.50 METs) Do heavy work around the house, such as scrubbing floors, lifting or moving heavy furniture (8.00 METs) Patient denies any chest pain or undue shortness of breath with the above physical activity. ?Sleep: Duration: 7 hours. GUS NO ; CPAP NO Quality:poor, Few awakenings STOP BANG 1. Snoring : Do you snore loudly (louder than talking, through closed doors)? YES 2. Tired : Do you often feel tired, fatigued, or sleepy during daytime? YES 3. Observed : Has anyone observed you stop breathing during sleep?YES 4. Blood Pressure: treated for high blood pressure?NO 5. BMI : BMI more than 35 kg/m2? YES 6. Age : Age over 50 yr old? NO 7. Neck circumference: Neck circumference greater than 40 cm?YES 8. Gender : Gender male? NO STOP BANG Score 5, Past Medical History PAST MEDICAL HISTORY Diagnosis Date ADHD (attention deficit hyperactivity disorder) Anxiety and depression Asthma No history of [place], COPD, +asthma, peptic ulcer disease, +GERD, dyslipidemia, hypothyroidism, HTN, cancer, DVT, PE, CVA, T2DM, gout, kidney stones, CKD, and +smoking history Current smoker - vapes - nicotine cartridges (1 per week) Current smoker of marijuana daily - no medical card - plans on obtaining one No current outpatient medications on file prior to visit. No current facility-administered medications on file prior to visit. ALLERGIES Not on File PAST SURGICAL HISTORY Procedure Laterality Date EXTRACTION ERUPTED TOOTH/EXR wisdom teeth Any problems with anesthesia with the above surgeries: No FAMILY HISTORY Problem Relation Age of Onset Blood Clots No Family History Heart Attack No Family History Anesthesia Problems No Family History Social History Tobacco Use Smoking status: Never Smokeless tobacco: Never Tobacco comments: vaping Vaping Use Vaping Use: current everyday user Start date: 05/25/2018 Substances: Nicotine, 1 cartridge per week Substance Use Topics Alcohol use: Yes Comment: once a month Drug use: Yes Frequency: 7.0 times per week Types: Marijuana Patient Active Problem List Generalized anxiety disorder Obesity, Class III, BMI >= 40 Depression ADHD Asthma Resolved Hospital Problems No resolved problems to display. Review Of Systems Skin: negative Respiratory: No history of cough, hemoptysis, asthma, recent chest infection, wheezing Cardiovascular: No history of chest pain,palpitation,orthopnea,cynos is,pedel edema Gastrointestinal: No blood in stool, pain with BM, tarry stool, persistent diarrhea or constipation Genitourinary: No burning with urination, blood in urine or incontinence. No change in vaginal discharge, burning, dryness or itching. Hematology/Lymphology Negative for prolonged bleeding, bruising easily or swollen nodes Musculoskeletal: negative Psychiatric: negative +anxiety, stable on current medications Endocrine: No history of thyroid disorder,diabetes,cold intolerance,heat,intolerance,vanessa ydypsia Neuro: No history of headaches, syncope, paralysis, seizures or tremors PE BP 111/53 (BP Site: Left Arm, BP Position: Sitting, BP Cuff Size: Large Adult) Pulse 84 Ht 162.2 cm (5' 3.86 ) Wt 114.9 kg (253 lb 5.6 oz) LMP 12/29/2022 (Approximate) BMI 43.68 kg/m? BMI = Body mass index is 43.68 kg/m?. GENERAL: NAD. Mixed central and gluteofemoral adiposity. Waist circumference not measured. HEENT:: Supple, no adenopath (more content not included)... [place] [facility] 01-19-2023 Instructions Allie Larson APRN.PROGRAMS DIRECTOR - 01/19/2023 9:16 AM EDT Darron Membreno , Thank you for completing your visit today and we welcome you to the surgical program. We are sure that you will still have some additional questions and encourage you to reach out to your care provider via [employer] OR your Patient Navigator. Patient Navigators are assigned alphabetically by patient last name. The contact information for each Navigator is listed below. Last names A-E= Eugenia Last names F-L = Ricardo Last names M-R= Catie Last names S-Z= Huber Additionally, you may find many of the answers to your questions in our Guide To Surgery book. This book includes step by step instructions for completing your surgical path and resources for the surgical procedures, medical information, and nutrition/diet information. We would like you to review this book as your providers will refer to information contained in it. For now, please follow the link below to read online version of the book, but next time you have a FACE to FACE visit with one of your providers, please feel free to ask for a hard copy. [email or web address] Once you complete all of the requirements (testing, consultations, diet, etc) from each provider, please call [phone] and select option #5 to initiate insurance approval. Also, if you have any questions along the way, we encourage you to join our weekly Navigation webinar every Thursday from 12:00 pm - 1:00 pm. This webinar will give you an opportunity to chat with your patient navigator and learn about your specific program requirements. The link for this webinar is below: [email or web address] Please note scheduling information It is important to keep track of your scheduled appointments to ensure successful completion of our surgical program. Any missed appointments can further delay your pre-surgical work-up. [facility] does offer an opt-in option for getting text message appointment reminders. Please follow the link below if you would like to opt into this service. [email or web address] -------- As part of your surgical work up, SOME or ALL of the following tests may have been ordered. It will be your responsibility to schedule and complete these tests in order to proceed with your bariatric surgery. Please review the following instructions on how to get your testing scheduled. -EKG, Chest X-ray, Abdominal Ultrasound- An appointment is needed for each of these tests. You may call your local [facility] to get an appointment. - Lab work- No appointment is needed for this, you may complete at any [facility] Laboratory. These are usually fasting labs, please be sure to fast (only water permitted) for 10-12 hours prior to the test. -Sleep Study- Please call [phone] or [phone] to get this appointment set up. -Sleep Medicine Consult- (Only needed if sleep study confirms sleep apnea) Please call [phone] or [phone] to schedule an appointment. URINE TESTING AFTER YOU'VE QUIT FOR MORE THAN 30 DAYS *A series of negative nicotine screens are required by the BMI program:? Depending on your chosen surgical procedure, you will need to be quit from all nicotine products (including nicotine replacement products such as patches or gums) for 1-4 months before moving forward with surgery, plus an additional screen just before surgery as part of your pre-op labs. Once you have been free of nicotine for at least 1 month, go to any [facility] lab and submit your first nicotine screen. ?The order for your screens have been placed today, so you will just need to provide your name at the lab. If you are seeking the Sleeve Gastrectomy, DS/AYANA, or revision surgery, the next nicotine screen will occur as part of your pre-op labs just before surgery If you are seeking the RNY gastric bypass, complete your first screen after being 1 month nicotine-free, and a second screen three months later (add a reminder to your calendar because a reminder will not be sent by our program, and missed screens are treated as positive. Note: If you are not sure which surgery is being recommended because you are still awaiting your surgeon consult or medical testing results, work toward 4 months nicotine-free with 2 negative screens, in case the RNY gastric bypass is ultimately selected for you. All patients will have nicotine screening included as part of their pre-op labs just before surgery. If your pre-op nicotine screen is positive for nicotine and/or cotinine, your surgery?will be cancelled. Any testing that is completed outside of [facility] will need faxed to [phone]. We look forward to working with you on this journey, Allie Larson APRN.PROGRAMS DIRECTOR documented in this encounter [facility] 01-19-2023 History of Presen t illness Narrative BMI Obesity Medicine Initial Bariatric Surgery Consult January 19, 2023 Patient Summary:: Saroj Membreno is a 23 year old female who presents on January 19, 2023 for surgical evaluation and treatment of obesity. The patient is undecided on which surgical procedure to pursue with Dr. Malone. Primary reason for wanting obesity treatment : prevent comorbidities, improve quality of life Overall goal: ~180 lbs Weight History: She reports a family history of obesity and early onset weight gain. She states her weight gain is related to the following factors, including reduced physical activity, school stress. Prior Weight Loss Surgery: No Previous Obesity Treatments: commercial diets, self-directed, and exercise program. Weight Promoting Medications: None Weight Graph: (please see graph scanned in chart) Diet: Quality of diet: 24hr recall suggests unhealthy diet. Characterization of diet: Unstructured and skip meals. 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 None Stress test: no Functional Status: Climb a flight of stairs or walk up a hill (5.50 METs) Do heavy work around the house, such as scrubbing floors, lifting or moving heavy furniture (8.00 METs) Patient denies any chest pain or undue shortness of breath with the above physical activity. ?Sleep: Duration: 7 hours. GUS NO ; CPAP NO Quality:poor, Few awakenings STOP BANG 1. Snoring : Do you snore loudly (louder than talking, through closed doors)? YES 2. Tired : Do you often feel tired, fatigued, or sleepy during daytime? YES 3. Observed : Has anyone observed you stop breathing during sleep?YES 4. Blood Pressure: treated for high blood pressure?NO 5. BMI : BMI more than 35 kg/m2? YES 6. Age : Age over 50 yr old? NO 7. Neck circumference: Neck circumference greater than 40 cm?YES 8. Gender : Gender male? NO STOP BANG Score 5, Past Medical History PAST MEDICAL HISTORY Diagnosis Date ADHD (attention deficit hyperactivity disorder) Anxiety and depression Asthma No history of [place], COPD, +asthma, peptic ulcer disease, +GERD, dyslipidemia, hypothyroidism, HTN, cancer, DVT, PE, CVA, T2DM, gout, kidney stones, CKD, and +smoking history Current smoker - vapes - nicotine cartridges (1 per week) Current smoker of marijuana daily - no medical card - plans on obtaining one No current outpatient medications on file prior to visit. No current facility-administered medications on file prior to visit. ALLERGIES Not on File PAST SURGICAL HISTORY Procedure Laterality Date EXTRACTION ERUPTED TOOTH/EXR wisdom teeth Any problems with anesthesia with the above surgeries: No FAMILY HISTORY Problem Relation Age of Onset Blood Clots No Family History Heart Attack No Family History Anesthesia Problems No Family History Social History Tobacco Use Smoking status: Never Smokeless tobacco: Never Tobacco comments: vaping Vaping Use Vaping Use: current everyday user Start date: 05/25/2018 Substances: Nicotine, 1 cartridge per week Substance Use Topics Alcohol use: Yes Comment: once a month Drug use: Yes Frequency: 7.0 times per week Types: Marijuana Patient Active Problem List Generalized anxiety disorder Obesity, Class III, BMI >= 40 Depression ADHD Asthma Resolved Hospital Problems No resolved problems to display. Review Of Systems Skin: negative Respiratory: No history of cough, hemoptysis, asthma, recent chest infection, wheezing Cardiovascular: No history of chest pain,palpitation,orthopnea,cynos is,pedel edema Gastrointestinal: No blood in stool, pain with BM, tarry stool, persistent diarrhea or constipation Genitourinary: No burning with urination, blood in urine or incontinence. No change in vaginal discharge, burning, dryness or itching. Hematology/Lymphology Negative for prolonged bleeding, bruising easily or swollen nodes Musculoskeletal: negative Psychiatric: negative +anxiety, stable on current medications Endocrine: No history of thyroid disorder,diabetes,cold intolerance,heat,intolerance,vanessa ydypsia Neuro: No history of headaches, syncope, paralysis, seizures or tremors PE BP 111/53 (BP Site: Left Arm, BP Position: Sitting, BP Cuff Size: Large Adult) Pulse 84 Ht 162.2 cm (5' 3.86 ) Wt 114.9 kg (253 lb 5.6 oz) LMP 12/29/2022 (Approximate) BMI 43.68 kg/m BMI = Body mass index is 43.68 kg/m . GENERAL: NAD. Mixed central and gluteofemoral adiposity. Waist circumference not measured. HEENT:: Supple, no adenopathy; thyroid symmetric, normal size, no bruits Lungs: Lungs clear to auscultation. No wheezing, rhonchi, rales. Heart: RRR without murmur, gallop, or rubs. No ectopy Abdomen: Normal abdominal exam, Abdomen soft, non-tender. Bowel sounds normal. No masses, organomegaly Extremities: No clubbing, cyanosis, or edema. Skin: Skin color, texture, turgor normal, no suspicious rashes or lesions Results: reviewed with the patient No results found for any previous visit. Impression Saroj Membreno is a 23 year old female with Class III obesity who presented today for medical evaluation as she prepares for bariatric surgery. She has medical conditions as noted above. She is a possible candidate for bariatric and metabolic surgery. She will be evaluated by our multidisciplinary team in preparation for surgery. - May likely proceed with bariatric surgery if the baseline EKG normal. No further noninvasive cardiac testing needed as the patient has no intermediate clinical risk factors, (IDDM, renal failure, CHF, CAD, and CVA) and has a normal functional capacity. Plan Based on the severity and resistance of the obesity to more conservative weight loss approaches, I believe a surgical intervention is the best and most appropriate intervention. - Seminar: completed - The patient has a 0 month insurance requirement prior to surgery. - We reviewed principles of energy metabolism, caloric intake and expenditure, and rationale for treatment program. We discussed the importance of healthy lifestyle modification. - Reviewed/reinforced BMI Nutritional Tips for Bariatric Surgery pamphlet, patient directed to Guide to Surgery information. - Encouraged the patient to improve physical activity. We discussed the benefits of both cardiovascular and strength exercises. - Discussed the importance of taking post-operative vitamins life long and reviewed vitamin/micronutrient levels ordered today. Patient understands that any variations of B vitamins or Vitamin D will be corrected pre-operatively. - : Recommend that she should not become for 18-24 months after surgery due to increased risks of micronutrient deficiency. I counseled her on the perioperative use of estrogen therapy, instructing her not to take oral estrogen (eg OCPs) one month before and one month after surgery due to increased VTE risk. We reviewed alternate forms of contraception and encouraged the patient to speak with her physician/provider to formulate a perioperative plan. If she is considering a Graciela-en Y gastric bypass, I counseled her that oral methods of control may not be as effective after surgery and that they should consider alternate contraception to reduce the risk of . - Reviewed pre operative workup for medical optimization and clearance prior to bariatric surgery: EKG, Chest X-ray, RUQ Ultrasound: orders placed, provided information to call and schedule testing Lab work: orders placed, complete fasting no appointment needed Sleep Study: STOP-BANG score is 5, HSAT order placed Sleep Medicine Consult: pending sleep study results Patient currently smokes marijuana and vapes nicotine. Reviewed surgery program nicotine and marijuana policies. Urine testing orders placed, complete at least 1 month after quitting. She stated she plans to obtain medical marijuana card. Consult to smoking cessation clinic placed. *A series of negative nicotine screens are required by the BMI program:? Depending on your chosen surgical procedure, you will need to be quit from all nicotine products (including nicotine replacement products such as patches or gums) for 1-4 months before moving forward with surgery, plus an additional screen just before surgery as part of your pre-op labs. Once you have been free of nicotine for at least 1 month, go to any [facility] lab and submit your first nicotine screen. ?The order for your screens have been placed today, so you will just need to provide your name at the lab. If you are seeking the Sleeve Gastrectomy, DS/AYANA, or revision surgery, the next nicotine screen will occur as part of your pre-op labs just before surgery If you are seeking the RNY gastric bypass, complete your first screen after being 1 month nicotine-free, and a second screen three months later (add a reminder to your calendar because a reminder will not be sent by our program, and missed screens are treated as positive. Note: If you are not sure which surgery is being recommended because you are still awaiting your surgeon consult or medical testing results, work toward 4 months nicotine-free with 2 negative screens, in case the RNY gastric bypass is ultimately selected for you. All patients will have nicotine screening included as part of their pre-op labs just before surgery. If your pre-op nicotine screen is positive for nicotine and/or cotinine, your surgery?will be cancelled. Once above pre op testing and evaluations are complete, will review and provide medicine clearance via letter in [employer]. I spent a total of 50 minutes on the date of the service which included preparing to see the patient, [id number] patient care, completing clinical documentation, obtaining and/or reviewing separately obtained history, counseling and educating the patient/family/caregiver, and ordering medications, tests, or procedures. Allie Larson, MSN, PELT SHEARER, FIELD MACHINIST-C [facility] [place] [address] [place] [address] documented in this encounter [facility] 07-07-2022 Evaluation note Encounter Date Diagnosis Assessment Notes Jun, Laceration of right middle finger without foreign body without damage to nail, initial encounter (ICD-10 - S61.212A) Jun, Urinary tract infection without hematuria, site unspecified (ICD-10 - N39.0) Urinary tract infection (UTI) home care material was printed Take the Macrobid and Pyridium as prescribed until gone. Drink plenty of fluids and get plenty of rest. Keep the wound to your finger clean and dry. Apply antibiotic ointment and a Band-Aid to the wound daily. Do not wash dishes without wearing a glove until the wound is completely healed. You do not need to cover the wound when you are taking a shower. Follow-up with your family physician for any further concerns Jun, Urinary frequency (ICD-10 - R35.0) [facility] Other 01-24-2023 Evaluation note* Encounter Date Diagnosis Assessment Notes Treatment Notes Treatment Clinical Notes May, Generalized anxiety disorder (ICD-10 - F41.1) [facility] Other 10-31-2022 Evaluation note* Encounter Date Diagnosis Assessment Notes Treatment Notes Treatment Clinical Notes Feb, Muscle pain (ICD-10 - M79.10) Feb, PILO (generalized anxiety disorder) (ICD-10 - F41.1) [facility] Other 09-05-2022 Evaluation note* Encounter Date Diagnosis Assessment Notes Treatment Notes Treatment Clinical Notes Jan, Herpes zoster without complication (ICD-10 - B02.9) Shingles home care material was printed Drink plenty fluids, get plenty of rest. Take the Valtrex as prescribed until gone. Follow-up with your family physician if no improvement in 2 to 3 days. [facility] Other 07-05-2022 Evaluation note* Encounter Date Diagnosis Assessment Notes Treatment Notes Treatment Clinical Notes Nov, Generalized anxiety disorder (ICD-10 - F41.1) Today during the appointment we discussed depression and emotions. We talked about treatment options that include both counseling and medication interventions. When we first start treatment, it is common to have to be seen more frequently as we figure out the best treatment regimen that fits you as an individual. We will be able to space out appointments more once we find what works for you. If at any time you feel like your symptoms have increased in severity or you want to hurt yourself, please never hesitate to contact us and we will get you in to be seen. Also always know the [facility] Health Emergency Number is 24 hours a day available, even on holidays there is someone you can reach out to. Also we will check other labs yearly to screen for other health issues. Please remember we are a team and your opinion is very important in all of your healthcare decisions Nov, Insomnia, unspecified type (ICD-10 - G47.00) Increased dose as discussed. [facility] Other 06-20-2022 Evaluation note* Encounter Date Diagnosis Assessment Notes Treatment Notes Treatment Clinical Notes Oct, Generalized anxiety disorder (ICD-10 - F41.1) Increased medication as discussed. Oct, Herpes zoster without complication (ICD-10 - B02.9) Take medicatio as directed. Tylenol or motrin for pain [facility] Other 05-23-2022 Evaluation note* Encounter Date Diagnosis Assessment Notes Treatment Notes Treatment Clinical Notes September, PILO (generalized anxiety disorder) (ICD-10 - F41.1) Today during the appointment we discussed depression and emotions. We talked about treatment options that include both counseling and medication interventions. When we first start treatment, it is common to have to be seen more frequently as we figure out the best treatment regimen that fits you as an individual. We will be able to space out appointments more once we find what works for you. If at any time you feel like your symptoms have increased in severity or you want to hurt yourself, please never hesitate to contact us and we will get you in to be seen. Also always know the [facility] Emergency Number is 24 hours a day available, even on holidays there is someone you can reach out to. Also we will check other labs yearly to screen for other health issues. Please remember we are a team and your opinion is very important in all of your healthcare decisions September, Insomnia, unspecified type (ICD-10 - G47.00) This medication can help with sleep and anxiety [facility] Other 03-27-2022 Evaluation note* Encounter Date Diagnosis Assessment Notes Treatment Notes Treatment Clinical Notes Jul, Muscle pain (ICD-10 - M79.10) [facility] Other 01-28-2022 Evaluation note* Encounter Date Diagnosis Assessment Notes Treatment Notes Treatment Clinical Notes May, Encounter for screening for other viral diseases (ICD-10 - Z11.59) May, Other Additional time spent conducting pre-visit phone call, screening for symptoms, instructions on social distancing, application and removal of PPE, and cleaning of examination room, equipment and supplies was preformed. Patient education given for testing methodology and results. Patient care instructions given in writting by [facility] At Home document. [facility] Other 2022 Evaluation note* Encounter Date Diagnosis Assessment Notes Treatment Notes Treatment Clinical Notes May, PILO (generalized anxiety disorder) (ICD-10 - F41.1) May, Generalized anxiety disorder (ICD-10 - F41.1) May, Muscle pain (ICD-10 - M79.10) [facility] Other 11-06-2021 Evaluation note* Encounter Date Diagnosis Assessment Notes Treatment Notes Treatment Clinical Notes Mar, Contact with and (suspected) exposure to other viral communicable diseases (ICD-10 - Z20.828) Even though COVID RAPID test is NEGATIVE, I am highly suspicious at this time you may be positive due to the symptoms. Recommend patient follow Quarantine guidelines until you follow up with PCP.. Recommend OTC medication such as Mucinex, Sea salt nasal spray, Cepecol, Tylenol, Zyrtec, as they can help with symptoms Mar, Other Additional time spent conducting pre-visit phone call, screening for symptoms, instructions on social distancing, application and removal of PPE, and cleaning of examination room, equipment and supplies was preformed. Patient education given for testing methodology and results. Patient care instructions given in writting by [facility] Care At Home document. [facility] Other 10-14-2021 Evaluation note* Encounter Date Diagnosis Assessment Notes Treatment Notes Treatment Clinical Notes Feb, Generalized anxiety disorder (ICD-10 - F41.1) resent script Feb, Puncture wound without foreign body of lip, initial encounter (ICD-10 - S01.531A) take medication as directed. Recommend taking out piercing and possibly using different type made of different metal [facility] Other 10-05-2021 Evaluation note* Encounter Date Diagnosis Assessment Notes Treatment Notes Treatment Clinical Notes Feb, PILO (generalized anxiety disorder) (ICD-10 - F41.1) Today during the appointment we discussed depression and emotions. We talked about treatment options that include both counseling and medication interventions. When we first start treatment, it is common to have to be seen more frequently as we figure out the best treatment regimen that fits you as an individual. We will be able to space out appointments more once we find what works for you. If at any time you feel like your symptoms have increased in severity or you want to hurt yourself, please never hesitate to contact us and we will get you in to be seen. Also always know the [facility] Emergency Number is 24 hours a day available, even on holidays there is someone you can reach out to. Also we will check other labs yearly to screen for other health issues. Please remember we are a team and your opinion is very important in all of your healthcare decisions [facility] Other evaluation [facility] Other Evaluation noteNo assessment information available [facility] Work Phone: evaluation note* Diagnosis Pre-op evaluation- Primary Preoperative examination, unspecified Class 3 severe obesity with serious comorbidity and body mass index (BMI) of 40.0 to 44.9 in adult, unspecified obesity type (HCC) Vapes nicotine containing substance Marijuana smoker Cannabis abuse, unspecified documented in this encounter [facility] note* Diagnosis Body mass index (BMI) 40.0-44.9, adult (HCC)- Primary Dietary counseling and surveillance Dietary surveillance and counseling documented in this encounter [facility] note* Diagnosis Pre-op evaluation Preoperative examination, unspecified Class 3 severe obesity with serious comorbidity and body mass index (BMI) of 40.0 to 44.9 in adult, unspecified obesity type (HCC) documented in this encounter [facility] note* Diagnosis Pre-op evaluation Preoperative examination, unspecified Class 3 severe obesity with serious comorbidity and body mass index (BMI) of 40.0 to 44.9 in adult, unspecified obesity type (HCC) documented in this encounter [facility] note* Diagnosis Pre-op evaluation Preoperative examination, unspecified Class 3 severe obesity with serious comorbidity and body mass index (BMI) of 40.0 to 44.9 in adult, unspecified obesity type (HCC) [facility] Diagnosis Onset Date Resolution Status Right otitis media noneactiv e [facility] Work Phone: Evaluation note* Diagnosis Onset Date Resolution Status Right otitis media noneactiv e Right ankle sprain acute [facility] Work Phone: Evaluation note* Diagnosis Onset Date Resolution Status Right ankle sprain acute [facility] Work Phone: Evaluation note* Diagnosis Onset Date Resolution Status Right ankle sprain acute Acute pharyngitis acute [facility] Work Phone: Evaluation note* Diagnosis Onset Date Resolution Status Right ankle sprain acute Acute pharyngitis acute Vaginal discharge acute [facility] Work Phone: Evaluation note* Diagnosis Class 3 severe obesity with serious comorbidity and body mass index (BMI) of 40.0 to 44.9 in adult, unspecified obesity type (HCC) [facility] N[facility]ative - Reported* Type Description Date Medical History ADHD Medical History syncope Medical History anxiety Medical History lupus Medical History back pain Medical History chronic depression Medical History PTSD Surgical History wisdom teeth Hospitalization History No Hospitalization histo ry information [facility] Yo Other History general Narrative - Reported* Type Description Date Medical History ADHD Medical History syncope Medical History anxiety Medical History lupus Medical History back pain Medical History chronic depression Medical History PTSD Surgical History wisdom teeth Hospitalization History No know Hospitalization history [employer] [facility] Yo Other History general [facility] - [facility] Other Reason for referral (narrative)* Diagnostic Procedure Only (Routine) - Pending Review Specialty Diagnoses / Procedures Referred By Simba simmons Referred To [facility] Diagnoses Pre-op evaluation Class 3 severe obesity with serious comorbidity and body mass index (BMI) of 40.0 to 44.9 in adult, unspecified obesity type (HCC) Procedures HOME SLEEP APNEA TEST (HSAT) SLEEP STD AIRFLOW HRT RATE&O2 SAT EFFORT UNATT Allie Larson APRN.PROGRAMS DIRECTOR [address] [place] [address] [facility] [address] [place] [id number] Referral ID Status Reason Start Date Expiration Date Visits Requested Visits Authorized [id number] Pending Review Auto-Generat ed Referral 01/19/2023 01/19/2024 1 1 * Diagnostic Procedure Only (Routine) - Pending Review Specialty Diagnoses / Procedures Referred By Contac t Referred To Contact [facility] Diagnoses Pre-op evaluation Class 3 severe obesity with serious comorbidity and body mass index (BMI) of 40.0 to 44.9 in adult, unspecified obesity type (HCC) Procedures US ABD RIGHT UPPER QUADRANT US ABDOMINAL REAL TIME W/IMAGE LIMITED Allie Larson APRN.PROGRAMS DIRECTOR [address] [place] [address] [facility] Referral ID Status Reason Start Date Expiration Date Visits Requested Visits Authorized [id number] Pending Review Auto-Generat ed Referral 01/19/2023 02/18/2024 1 1 * Outpatient Procedure (Routine) - Pending Review Specialty Diagnoses / Procedures Referred By Contac t Referred To Contact [facility] Diagnoses Pre-op evaluation Class 3 severe obesity with serious comorbidity and body mass index (BMI) of 40.0 to 44.9 in adult, unspecified obesity type (HCC) Procedures ECG COMPLETE ECG ROUTINE ECG W/LEAST 12 LDS W/I&R Allie Larson APRN.PROGRAMS DIRECTOR [address] [place] [address] [facility] [address] [place], [place] [id number] Referral ID Status Reason Start Date Expiration Date Visits Requested Visits Authorized [id number] Pending Review Auto-Generat ed Referral 01/19/2023 01/19/[address] [facility] for referral (narrative)* Diagnostic Procedure Only (Routine) - Closed Specialty Diagnoses / Procedures Referred By Contac t Referred To Contact US IMAGING Diagnoses Pre-op evaluation Class 3 severe obesity with serious comorbidity and body mass index (BMI) of 40.0 to 44.9 in adult, unspecified obesity type (HCC) Procedures US ABD RIGHT UPPER QUADRANT US ABDOMINAL REAL TIME W/IMAGE LIMITED Allie Larson APRN.PROGRAMS DIRECTOR [address] [place] [id number] [facility]95 Referral ID Status Reason Start Date Expiration Date V isits Requested Visits Authorized [id number] Closed Auto-Generate d Referral 01/19/2023 02/18/[address] [facility] for referral (narrative)* Outpatient Procedure (Routine) - Closed Specialty Diagnoses / Procedures Referred By Contac t Referred To Contact [facility] Diagnoses Class 3 severe obesity with serious comorbidity and body mass index (BMI) of 40.0 to 44.9 in adult, unspecified obesity type (HCC) Procedures EGD DIAGNOSTIC ESOPHAGOGASTRODUODENOSC OPY [place] [address] [place] [address] [facility] [address] [id number] Referral ID Status Reason Start Date Expiration Date V isits Requested Visits Authorized [id number] Closed Auto-Generate d Referral 01/30/2023 01/30/[address] [facility] for visit Narrative* Diagnostic Procedure Only (Routine) - Closed Specialty Diagnoses / Procedures Referred By Contac t Referred To Contact [facility] IMAG[facility] Diagnoses Pre-op evaluation Class 3 severe obesity with serious comorbidity and body mass index (BMI) of 40.0 to 44.9 in adult, unspecified obesity type (HCC) Procedures US ABD RIGHT UPPER QUADRANT US ABDOMINAL REAL TIME W/IMAGE LIMITED Allie Larson APRN.PROGRAMS DIRECTOR [address] [place] [phone] [facility] [address] Referral ID Status Reason Start Date Expiration Date V isits Requested Visits Authorized [id number] Closed Auto-Generate d Referral 01/19/2023 02/18/2024 1 1 [facility] N[facility]* Outpatient Procedure (Routine) - Closed Specialty Diagnoses / Procedures Referred By Simba t Referred To Contact [facility] Diagnoses Class 3 severe obesity with serious comorbidity and body mass index (BMI) of 40.0 to 44.9 in adult, unspecified obesity type (HCC) Procedures EGD DIAGNOSTIC ESOPHAGOGASTRODUODENOSC OPY [place] [address] [place] [address] [facility] [address] [place] [address] Referral ID Status Reason Start Date Expiration Date V isits Requested Visits Authorized [id number] Closed Auto-Generate d Referral 01/30/2023 01/30/2024 1 1 [facility] Chief Complaint and Reason for Visit Chief Complaint abd pain Urinary frequency Chief Complaint Ear pain Reason for Visit Right otitis media Chief Complaint Ear pain Right ankle pain with injury S99.911A - Unspecified injury of right ankle, init Reason for Visit Right otitis media Right ankle sprain Chief Complaint Right ankle pain wit h injury S99.911A - Unspecified injury of right ankle, init sore throat on left side Reason for Visit Right ankle sprain Chief Complaint Right ankle pain wit h injury S99.911A - Unspecified injury of right ankle, init sore throat on left side Std check Reason for Visit Right ankle sprain Acute pharyngitis Chief Complaint Right ankle pain wit h injury S99.911A - Unspecified injury of right ankle, init sore throat on left side Std check Vaginal Discharge Reason for Visit Right ankle sprain Acute pharyngitis Vaginal discharge Advance Directives No Advanced Directives Records Found Advance Directive Response Recorded Date/ Time Advance Directives No January 20, 2020 3:50pm Advance Directive Response Recorded Date/ Time Advance Directives No January 20, 2020 4:50pm Summary Purpose Family History No Family History Records FoundNo Family History Records FoundNo Family History Records FoundNo Family History Records FoundNo Family History Records FoundNo Family History Records FoundNo Family History Records FoundNo Family History Records FoundNo Family History Records FoundNo Family History Records FoundNo Family History Records FoundNo Family History Records FoundNo Family History Records FoundNo Family History Records FoundNo Family History Records FoundNo Family History Records FoundNo Family History Records FoundNo Family History Records Found Additional Source Comments REASON FOR VISIT (unrecogniz ed section and content) Reason Comments Obesity New Patient Surgical. Online beronica inar has been completed Reason Comments Smoking Cessation Reason Comments Patient Education Assessment Reason Comments Cardiology Follow Up Specialty Diagnoses / Procedures Referred By Contac t Referred To Contact [facility] Diagnoses Pre-op evaluation Class 3 severe obesity with serious comorbidity and body mass index (BMI) of 40.0 to 44.9 in adult, unspecified obesity type (HCC) Procedures ECG COMPLETE ECG ROUTINE ECG W/LEAST 12 LDS W/I&R Allie Larson, PELT SHEARER.PROGRAMS DIRECTOR [address] [place] [address] [facility] [address] [place] [address] Referral ID Status Reason Start Date Expiration Date V isits Requested Visits Authorized [id number] Closed Auto-Generate d Referral 01/19/2023 01/19/2024 1 1 Reason Comments Radio Gen RMP Care Teams (unrecognized sec tion and content) Team Status: Active Member Role Status Dates NON STAFF Primary Care Provider Active Team Status: Inactive Member Role Status Dates NON STAFF Primary Care Provider Active Start: September 16, 2023 End: September 16, 2023 FRANCISCO J Peralta Attending Provider Active S tart: September 16, 2023 End: September 16, 2023 Team Status: Inactive Member Role Status Dates NON STAFF Primary Care Provider Active FRANCISCO J Peralta Attending Provider Active Team Status: Inactive Member Role Status Dates NON STAFF Primary Care Provider Active Michelle Arthur PANEL MACHINE TENDER-BC Emergency Provider Active Optics Test Technician Relationship Specialty Start Date End Date Maria R Disla CNP [address] [place] [address] Referring Family Medicine 01/07/23 Optics Test Technician Relationship Specialty Start Date End Date Maria R Disla CNP [address] [place] [phone] Referring Family Medicine 01/07/23 Optics Test Technician Relationship Specialty Start Date End Date Maria R Disla GOPI [address] [place] [address] Referring Family Medicine 01/07/23 Optics Test Technician Relationship Specialty Start Date End Date Maria R DislaGOPI [address] [place] [address] Referring Family Medicine 01/07/23 Optics Test Technician Relationship Specialty Start Date End Date Maria R DislaGOPI [address] [place] [address] Referring Family Medicine 01/07/23 Optics Test Technician Relationship Specialty Start Date End Date Maria R DislaGOPI [address] [place] [address] Referring Family Medicine 01/07/23 Optics Test Technician Relationship Specialty Start Date End Date Maria R DislaGOPI [address] [place] [address] Referring Family Medicine 01/07/23 Team Status: Inactive Member Role Status Dates NON STAFF Primary Care Provider Active Start: November 13, 2023 End: November 13, 2023 Manjula Nevarez APRN Attending Provider Active S tart: November 13, 2023 End: November 13, 2023 Team Status: Active Member Role Status Dates NON STAFF Primary Care Provider Active Start: November 13, 2023 Manjula Nevarez APRN Attending Provider Active S tart: November 13, 2023 Team Status: Inactive Member Role Status Dates NON STAFF Primary Care Provider Active Start: November 13, 2023 End: November 13, 2023 Manjula LAW APRN Attending Provider Active Start: November 13, 2023 End: November 13, 2023 Team Status: Inactive Member Role Status Dates NON STAFF Primary Care Provider Active Start: January 20, 2024 End: January 20, 2024 Manjula LAW APRN Attending Provider Active Start: January 20, 2024 End: January 20, 2024 Team Status: Inactive Member Role Status Dates NON STAFF Primary Care Provider Active Start: February 02, 2024 End: February 02, 2024 Glo Alas APRN Attending Provider Active Start: February 02, 2024 End: February 02, 2024 Team Status: Inactive Member Role Status Dates Glo Alas APRN Attending Provider Active Start: February 02, 2024 End: February 02, 2024 Goals (unrecognized section and content) Goals may be documented in a n alternate section INFORMATION SOURCE (unrecogn ized section and content) DATE CREATED AUTHOR 09/27/2022 [facility] DATE CREATED AUTHOR AUTHOR'S ORGANIZ ATION 02/11/2023 [facility] DATE CREATED AUTHOR AUTHOR'S ORGANIZ ATION 03/13/2023 [facility] DATE CREATED AUTHOR AUTHOR'S ORGANIZ ATION 04/07/2023 [facility] DATE CREATED AUTHOR AUTHOR'S ORGANIZ ATION 05/01/[address] [facility] DATE CREATED AUTHOR AUTHOR'S ORGANIZ ATION 02/07/2024 [facility] DATE CREATED AUTHOR AUTHOR'S ORGANIZ ATION 03/25/2024 [facility] DATE CREATED AUTHOR AUTHOR'S ORGANIZ ATION 03/26/2024 [facility] DATE CREATED AUTHOR AUTHOR'S ORGANIZ ATION 03/28/2024 [facility] ical Center Source Comments (unrecognize d section and content) In the event this informatio n is protected by the Federal Confidentiality of Alcohol and Drug Abuse Patient Records regulations: The Federal rules restrict any use of the information to criminally investigate or prosecute any alcohol or drug abuse patient.[facility] the event this information is protected by the Federal Confidentiality of Alcohol and Drug Abuse Patient Records regulations: The Federal rules restrict any use of the information to criminally investigate or prosecute any alcohol or drug abuse patient.[facility] Center[facility] the event this information is protected by the Federal Confidentiality of Alcohol and Drug Abuse Patient Records regulations: The Federal rules restrict any use of the information to criminally investigate or prosecute any alcohol or drug abuse patient.[facility] CenterIn the event this information is protected by the Federal Confidentiality of Alcohol and Drug Abuse Patient Records regulations: The Federal rules restrict any use of the information to criminally investigate or prosecute any alcohol or drug abuse patient.[facility] Center[facility] the event this information is protected by the Federal Confidentiality of Alcohol and Drug Abuse Patient Records regulations: The Federal rules restrict any use of the information to criminally investigate or prosecute any alcohol or drug abuse patient.[facility] Center[facility] the event this information is protected by the Federal Confidentiality of Alcohol and Drug Abuse Patient Records regulations: The Federal rules restrict any use of the information to criminally investigate or prosecute any alcohol or drug abuse patient.[facility] CenterIn the event this information is protected by the Federal Confidentiality of Alcohol and Drug Abuse Patient Records regulations: The Federal rules restrict any use of the information to criminally investigate or prosecute any alcohol or drug abuse patient.[facility] CenterIn the event this information is protected by the Federal Confidentiality of Alcohol and Drug Abuse Patient Records regulations: The Federal rules restrict any use of the information to criminally investigate or prosecute any alcohol or drug abuse patient.[facility] CenterIn the event this information is protected by the Federal Confidentiality of Alcohol and Drug Abuse Patient Records regulations: The Federal rules restrict any use of the information to criminally investigate or prosecute any alcohol or drug abuse patient.[facility] FOR RECORDS PERTAINING TO PATIENTS WHO ARE OR HAVE BEEN ENROLLED IN A CHEMICAL DEPENDENCY/SUBSTANCEABUSE PROGRAM, SOME INFORMATION MAY BE OMITTED. This clinical summary was aggregated from multiple sources. Caution should be exercised in using it in the provision of clinical care. This summary normalizes information from multiple sources, and as a consequence, information in this document may materially change the coding, format and clinical context of patient data. In addition, data may be omitted in some cases. CLINICAL DECISIONS SHOULD BE BASED ON THE PRIMARY CLINICAL RECORDS. [facility] [employer] [facility]. provides no warranty or guarantee of the accuracy or completeness of information in this document.
== END 2024-05-05 22:08 | disposition left against medical advice (07) ==
LOC: ER 22:09
PROVIDERS: Emergency Provider Emergency Medicine; PCP Nurse Practitioner Family
DX: Z53.21 Procedure and treatment not carried out due to patient leaving prior to being seen by health care provider (principal)

== ENCOUNTER 2024-11-07 19:57 | Outpatient (REF) | payer MEDICAID, SELFPAY ==
--- OUTSIDE RECORDS SUMMARY | 2024-10-14 07:15 | XMS_ITS ---
Author Organization [facility] ([place], [place]) Servic es Address [address] [place] [address] Care Team Providers Care Sill Worker Name Role Phone Maria R Disla Primary Care Provider Maria R Romero [phone] REASON FOR VISIT F/U Encounters Encounter Location Date Provider Diagnosis [facility] ([place], [place]) Services [address] [place] [address] 10/14/2024 Maria R Romero Plan Of Treatment Next Appt Details Provider Name:Veronique Terrazas Virginiamaru ori, 12/05/2024 01:45:00 PM, [address] [place], [address], Provider Name:Burt Jarrett, 0 01/27/2025 11:00:00 AM, [address] [place], [address], Provider Name:Burt Jarrett, 0 02/02/2025 08:00:00 AM, [address] [place], [address], Provider Name:Kelly Saul , 06/07/2025 08:00:00 AM, [address] [place], [address], Progress Notes * SAROJ MEMBRENODOB: [birth year] (24 yo F)Acc No.[id number]:10/14/2024 F/U - Patient Patient: SAROJ COLBERT Provider: AP Bhakta :2000 A ge:24 Y S ex:Female Date:10/14/2024 Address:[facility] [address], [place], [id number] Pcp:Maria R Disla Subjective: * Chief Complaints: * 1 . F/U. Objective: Therapeutic Interventions: Assessment: Plan: * Images: Care Plan Details* * Electronic signature of AP Quispe on 11/07/2024 at 11:12 AM EDT Sign off status: Pending * Provider: AP Bhakta Date: 10/14/2024 Generated for Keke sebastian/Marga/eTransmramón on: 0 11/07/2024 11:12 AM EDT
--- OUTSIDE RECORDS SUMMARY | 2024-10-31 10:15 | XMS_ITS ---
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 Problems at : no Smoking/alcohol/drug use with : smoked Met developmental milestones: yes Speech delays: no . EDUCATION/ HX: Highest grade completed: 12 Graduated from: [employer] College: No Problems in school: NO School activities: no IEP: yes service: no Combat zone, deployed: no . EMPLOYMENT: Currently employed: yes How lon yrs Longest job held: this one Source of income: [employer] Difficulty holding a job: no Retired: Receiving disability: . MARITAL HX: Martial status: no # of marriages: no How long did marriage last: Age at time marriage: Describe relationship with spouse/partner: good Reason for divorce: Sexual orientation: straight Age became sexually active: 15 # of sexual partners: 10 Examination Category Sub-Category Detail Notes Category Not es General Examination . MENTAL STATUS EXAM: . Appearance: Appropriately dressed and groomed, good eye contact, cooperative, pleasant Behavior/Motor Activity: Normal Gait/Station: Within normal limits BH Speech: Normal Mood: Good Affect: Full Thought processes/Associations: Logical and goal directed Thought Content: Non-psychotic Cognition/Attention/Memory/Con centration: Alert and oriented x 4; grossly intact attention; memory-recent/remote judged adequate by interviewer Insight: Good Judgement: Good BH language: Within normal limits Fund of Knowledge: Adequate .
--- OUTSIDE RECORDS SUMMARY | 2024-11-07 11:00 | XMS_ITS | Encounter Summary ---
Author Organization [facility] Address [address] [place] [address] Care Team Providers Care Abrasive Mixer Name Role Phone Karly Baca Unavailable Unavailable Reason for Visit * Reason Comments Gynecologic Exam Encounter Details Date Type Department Care Team (Late st Contact Info) Description 11/07/2024 11:00 AM EDT Office Visit [facility] [address] [place] [id number] Ira Jensen PA [address] [facility] [address] [place] [address] Well woman exam with routine gynecological exam Social History Tobacco Use Types Packs/Day Years Used Date Smoking Tobacco: Never Assessed Comments No Sex and Gender Information Value Date Recorded Sex Assigned at Not on file Legal Sex Female 12:17 PM EDT Gender Identity Not on file Sexual Orientation Not on file documented as of this encounter Last Filed Vital Signs Vital Sign Reading Time Taken Comments Blood Pressure 110/68 11/07/2024 11:53 AM EDT Pulse - - Temperature - - Respiratory Rate - - Oxygen Saturation - - Inhaled Oxygen Concentration - - Weight 137 kg (301 lb) 11/07/2024 11:53 AM EDT Height - - Body Mass Index 53.32 12/08/2022 2:02 PM EDT documented in this encounter Progress Notes * RAMÍREZ Castle - 11/07/2024 11:00 AM EDT Reason for Appointment: Patient ID: Mark Viera is a 24 y.o. female who presents for Gynecologic Exam Patient presents today for Annual Exam. MEDICATIONS Current Outpatient Medications Medication Instructions Abilify 5 MG tablet Every 24 hours BENZAC AC WASH 10 % external wash WASH, LATHER AND RINSE AFFECTED AREAS IN THE GROIN AREA DAILY doxycycline (Vibramycin) 100 MG capsule TAKE 1 CAPSULE BY MOUTH DAILY WITH FOOD AND WATER Effexor XR 37.5 mg, Oral, Every 24 hours spironolactone (Aldactone) 50 MG tablet traZODone (DESYREL) 100 mg, Oral, Nightly Victoza 18 MG/3ML injection Every 24 hours ALLERGIES No Known Allergies PROBLEMS Active Ambulatory Problems Diagnosis Date Noted No Active Ambulatory Problems Resolved Ambulatory Problems Diagnosis Date Noted No Resolved Ambulatory Problems Past Medical History: Diagnosis Date ADHD (attention deficit hyperactivity disorder) Depression with anxiety HSV (herpes simplex virus) infection PTSD (post-traumatic stress disorder) HISTORY PAST MEDICAL HISTORY SOCIAL HISTORY Past Medical History: Diagnosis Date ADHD (attention deficit hyperactivity disorder) Depression with anxiety HSV (herpes simplex virus) infection PTSD (post-traumatic stress disorder) Social History Tobacco Use Smoking status: Not on file Smokeless tobacco: Not on file Substance Use Topics Alcohol use: Not on file Drug use: Not on file FAMILY HISTORY Family History Problem Relation Name Age of Onset Other (epilepsy) Mother SURGICAL HISTORY No past surgical history on file. REVIEW OF SYSTEMS Review of Systems: Review of Systems All other systems reviewed and are negative. OBJECTIVE Objective: Physical Exam Constitutional: Appearance: Normal appearance. She is well-developed. Genitourinary: Vulva normal. Right Adnexa: not tender and no mass present. Left Adnexa: not tender and no mass present. No cervical discharge. Breasts: Breasts are soft. Right: Normal. Left: Normal. HENT: Head: Normocephalic. Nose: Nose normal. Mouth/Throat: Mouth: Mucous membranes are moist. Cardiovascular: Rate and Rhythm: Normal rate and regular rhythm. Pulmonary: Effort: Pulmonary effort is normal. Breath sounds: Normal breath sounds. Abdominal: General: Bowel sounds are normal. There is no distension. Palpations: Abdomen is soft. Tenderness: There is no abdominal tenderness. There is no guarding or rebound. Musculoskeletal: General: No swelling. Normal range of motion. Cervical back: Normal range of motion. Right lower leg: No edema. Left lower leg: No edema. Neurological: General: No focal deficit present. Mental Status: She is alert and oriented to person, place, and time. Skin: General: Skin is warm and dry. Psychiatric: Mood and Affect: Mood normal. Behavior: Behavior normal. Vitals and nursing note reviewed. Exam conducted with a residential sales associate present. Vitals: Estimated body mass index is 53.32 kg/m?? as calculated from the following: Height as of 12/08/22: 5' 3 . Weight as of this encounter: 301 lb. BP: 110/68 Patient's last menstrual period was 10/25/2024 (exact date). ASSESSMENT & PLAN ICD-10-CM 1. Well woman exam with routine gynecological exam Z01.419 Pap Smear Annual Exam: Patient presents today for an annual exam. Patient states she is doing well and has no complaints. Pap was obtained without difficulty. Patient questions answered regarding fertility. She will follow up with Thomas in future is she wished to discuss or start fertility medications. No orders of the defined types were placed in this encounter. Follow Up: Patient is to return in one year for annual unless needed otherwise. Documented by Daphnie Ham MA on behalf of: RAMÍREZ Castle documented in this encounter Plan of Treatment Scheduled Orders Name Type Priority Associated Diagnoses Orde r Schedule Pap Smear Pathology and Cytology Routine Well woman exam with routine gynecological exam Ordered: 11/07/2024 documented as of this encounter Visit Diagnoses Diagnosis Well woman exam with routine gynecological exam Routine gynecological examination documented in this encounter Care Teams Abrasive Mixer Relationship Specialty Start Date End Date Karly Baca PCP - [facility] HEALY 11/23/23 documented as of this encounter
--- OUTSIDE RECORDS SUMMARY | 2024-11-07 20:01 | XMS_ITS | Encounter Summary ---
Author Organization [facility] Address [address] [place] [address] Care Team Providers Care Insulation Installer Name Role Phone Maria R Disla PARISH WORKER Unavailable [phone] Source Comments In the event this information is protected by the Federal Confidentiality of Alcohol and Drug AbusePatient Records regulations: The Federal rules restrict any use of the information to criminally investigate or prosecute any alcohol or drug abuse patient.[facility] Encounter Details Date Type Department Care Team (Late st Contact Info) Description 03/02/2023 GI Preprocedure Call Ambulatory Surgery [address] [place] [address] Shelly Parsons DO [address] [facility] [address] [place] [address] Social History Tobacco Use Types Packs/Day Years Used Date Smoking Tobacco: Never Smokeless Tobacco: Never Comments:vaping Alcohol Use Standard Drinks/Week Comments Yes 0 (1 standard drink = 0.6 oz pur e alcohol) once a month Area Deprivation Index Answer Date Solomon rded National Score (1-100), lower number is lower ri 76 01/19/2023 State Score (1-10), lower number is lower risk 6 01/19/2023 Data from: https://www.neighborhoodatlas.medicine.[facility].edu/. Last address used for calculation [address] 01/19/2023 Comments No Sex and Gender Information Value Date Recorded Sex Assigned at Female 01/17/2023 7:46 PM EDT Legal Sex Female 11:04 AM EDT Gender Identity Female 01/17/2023 7:46 PM EDT Sexual Orientation Bisexual 01/17/2023 7: 46 PM EDT documented as of this encounter Plan of Treatment Not on file documented as of this encounter Visit Diagnoses Not on filedocumented in this encounter Care Teams Insulation Installer Relationship Specialty Start Date End Date Maria R Disla CNP [address] [place], [place] [address] [address] Referring Family Medicine 01/07/23 documented as of this encounter
--- OUTSIDE RECORDS SUMMARY | 2024-11-07 20:01 | XMS_ITS | Encounter Summary ---
Author Organization [facility] Address [address] [place] [address] Care Team Providers Care Airfreight Loading Supervisor Name Role Phone Maria R Disla PUBLISHING SYSTEMS ANALYST Unavailable [phone] Source Comments In the event this information is protected by the Federal Confidentiality of Alcohol and Drug AbusePatient Records regulations: The Federal rules restrict any use of the information to criminally investigate or prosecute any alcohol or drug abuse patient.[facility] Encounter Details Date Type Department Care Team (Late st Contact Info) Description 02/08/2023 Patient Msg Neurology [address] [place], [place] [id number] Provider, [facility] CONFIRM Social History Tobacco Use Types Packs/Day Years Used Date Smoking Tobacco: Never Smokeless Tobacco: Never Comments:vaping Alcohol Use Standard Drinks/Week Comments Yes 0 (1 standard drink = 0.6 oz pur e alcohol) once a month Area Deprivation Index Answer Date Solomon rded National Score (1-100), lower number is lower ri sk 76 01/19/2023 State Score (1-10), lower number is lower risk 6 01/19/2023 Data from: https://www.neighborhoodatlas.medicine.[facility].edu/. Last address used for calculation [address] [facility] 01/19/2023 Comments No Sex and Gender Information [...] on filedocumented in this encounter Care Teams Airfreight Loading Supervisor Relationship Specialty Start Date End Date Maria R Disla CNP [address] [place] [address] Referring Family Medicine 01/07/23 documented as of this encounter
--- OUTSIDE RECORDS SUMMARY | 2024-11-07 20:01 | XMS_ITS | Encounter Summary ---
Author Organization [facility] Address [address] [place] [address] Care Team Providers Care Production Coordinator Name Role Phone Karly Baca Unavailable Unavailable Encounter Details Date Type Department Care Team (Late st Contact Info) Description 11/07/2024 Bamboo flowsheet [facility] [address] [facility] [place] [phone] Ira Jensen PA [address] [facility] [address] [place], [facility] Social History Tobacco Use Types Packs/Day Years Used Date Smoking Tobacco: Never Assessed Comments No Sex and Gender Information Value Date Recorded Sex Assigned at Not on file Legal Sex Female 12:17 PM EDT Gender Identity Not on file Sexual Orientation Not on file documented as of this encounter Plan of Treatment Not on file documented as of this encounter Visit Diagnoses Not on filedocumented in this encounter Care Teams Production Coordinator Relationship Specialty Start Date End Date Karly Baca PCP - [facility] SPORTS ANCHOR 11/23/23 documented as of this encounter
--- OUTSIDE RECORDS SUMMARY | 2024-11-07 20:01 | XMS_ITS | Encounter Summary ---
Author Organization [facility] Address [address] [place] [address] Care Team Providers Care Lining Sewer Name Role Phone Maria R Disla DIMENSIONAL ENGINEER Unavailable [phone] Source Comments In the event this information is protected by the Federal Confidentiality of Alcohol and Drug AbusePatient Records regulations: The Federal rules restrict any use of the information to criminally investigate or prosecute any alcohol or drug abuse patient.[facility] Encounter Details Date Type Department Care Team (Late st Contact Info) Description 02/09/2023 Patient Msg Neurology [address] [place], [place] [id number] Provider, [facility]cf CONFIRM Social History Tobacco Use [...] is lower risk 6 01/19/2023 Data from: https://www.neighborhoodatlas.medicine.[facility].edu/. Last address used for calculation [address] [facility] [facility] [address] [facility] 01/19/2023 Comments No Sex and Gender Information [...] on filedocumented in this encounter Care Teams Lining Sewer Relationship Specialty Start Date End Date Maria R Disla CNP [address] [place] [address] Referring Family Medicine 01/07/23 documented as of this encounter
--- OUTSIDE RECORDS SUMMARY | 2024-11-07 20:01 | XMS_ITS | Encounter Summary ---
Author Organization [facility] Address [address] [place] [address] Care Team Providers Care Sr. Payroll Manager Name Role Phone Maria R Disla POSITIVE PRINTER OPERATOR Unavailable [phone] Source Comments In the event this information is protected by the Federal Confidentiality of Alcohol and Drug AbusePatient Records regulations: The Federal rules restrict any use of the information to criminally investigate or prosecute any alcohol or drug abuse patient.[facility] Encounter Details Date Type Department Care Team (Late st Contact Info) Description 08/08/2024 Patient Msg General Surgery [address] [place], [place] [id number] Provider, Ccf Join the weight loss study: Surgery vs Medication. Social History Tobacco Use Types Packs/Day Years Used Date Smoking Tobacco: Never Smokeless Tobacco: Never Comments:vaping- Quit 3 Alcohol Use Standard Drinks/Week Comments Yes 0 (1 standard drink = 0.6 oz pur e alcohol) once a month Area Deprivation Index Answer Date Solomon rded National Score (1-100), lower number is lower ri sk 76 01/19/2023 State Score (1-10), lower number is lower risk 6 01/19/2023 Data from: https://www.neighborhoodatlas.medicine.[facility].edu/. Last address used for calculation [address] 01/19/2023 Comments No Sex and Gender [...] on filedocumented in this encounter Care Teams Sr. Payroll Manager Relationship Specialty Start Date End Date Maria R Disla CNP [address] [place] [address] Referring Family Medicine 01/07/23 documented as of this encounter
--- OUTSIDE RECORDS SUMMARY | 2024-11-07 20:01 | XMS_ITS | Patient Health Record ---
Author Organization [facility] Address [address] [place] [address] Care Team Providers Care Scrap Baler Name Role Phone Maria R Ochoa Primary Care Provider Christian Resendiz Unavailable [phone] Dr. Burt Jarrett Unavailable [phone] Veronique Wilson Unavailable [phone] Jeff Terry Unavailable [phone] Maria R Romero Unavailable [phone] Allergies No Known Allergies Results Component Value Reference Range Notes CMP Reviewed date:03/27/2024 03:14:46 PM Interpretation: Performing Lab: Notes/Report: Original Ordering Provider: [place] [address] [address] [facility] GLUCOSE 89 55-199 mg/dL UREA NITROGEN 10 5-21 mg/dL CREATININE 0.7 0.5-1.3 mg/dL CALCIUM 9.4 8.9-11.1 mg/dL SODIUM 138 135-145 mmol/L POTASSIUM 4.1 3.5-5.3 mmol/L CHLORIDE 104 101-111 mmol/L CARBON DIOXIDE 27 21-31 mmol/L ALKALINE PHOSPHATASE 82 21-98 Int._Unit/L BILIRUBIN 0.8 0.0-1.1 mg/dL ALBUMIN 4.3 3.3-5.0 gm/dL PROTEIN 7.3 6.0-7.8 gm/dL ALANINE AMINOTRANSFERASE 13 6-46 Int._Unit/L ASPARTATE AMINOTRANSFERASE 16 5-43 Int._Unit /L UREA NITROGEN/CREATININE 14 10-20 No Units ANION GAP 11 6-16 mEq/L GLOBULIN 3.0 1.4-4.0 gm/dL ALBUMIN/GLOBULIN 1.4 1.1-2.2 Performing Lab see note [facility] unless otherwise specified [address] [place] [address] Cortisol Reviewed date:03/27/2024 03:14:20 PM Interpretation: Performing Lab: Notes/Report: Original Ordering Provider: GOPI OCHOA [address] [facility] CORTISOL 15.2 6.2-19.4 microgram/dL Please Note: The reference interval and flagging for this test is for an AM collection. If this is a PM collection please use: Cortisol PM: 2.3-11.9 Performed at: [address] [id number] PhD Fara Braswell Performing Lab see note [facility] unless otherwise specified [address] [place] [address] HAILEE w/Reflex if POS Reviewed date:03/27/2024 03:13:55 PM Interpretation: Performing Lab: Notes/Report: [facility] [address] [place] [address] Original Ordering Provider: GOPI OCHOA NUCLEAR AB Negative Negative Performed at: [address] [id number] PhD Fara Braswell Performing Lab see note [facility] unless otherwise specified [address] [place] [address] FSH and LH Reviewed date:03/27/2024 03:14:29 PM Interpretation: Performing Lab: Notes/Report: [facility] [address] [place] [address] Original Ordering Provider: GOPI OCHOA FOLLITROPIN 7.7 Adult Female Range Follicular phase 3.5 - 12.5 Ovulation phase 4.7 - 21.5 Luteal phase 1.7 - 7.7 Postmenopausal 25.8 - 134.8 Performed at: [address] [id number] PhD Fara DE LUNA 8.6 Adult Female Range Follicular phase 2.4 - 12.6 Ovulation phase 14.0 - 95.6 Luteal phase 1.0 - 11.4 Postmenopausal 7.7 - 58.5 Performing Lab see note [facility] unless otherwise specified [address] [place] [address] HgbA1c Reviewed date:03/27/2024 03:15:34 PM Interpretation: Performing Lab: Notes/Report: Original Ordering Provider: GOPI OCHOA [address] [facility] HEMOGLOBIN A1C/HEMOGLOBIN.TOTAL 5.1 <=5.9 % Performing Lab see note [facility] unless otherwise specified [address] [place] [address] Insulin Lvl Reviewed date:03/27/2024 03:15:07 PM Interpretation: Performing Lab: Notes/Report: [facility] [address] [place] [address] Original Ordering Provider: GOPI OCHOA INSULIN 9.4 2.6-24.9 mcIU/mL Performed at: [facility] [id number] PhD Fara Braswell Performing Lab see note [facility] unless otherwise specified [address] [place] [address] Lipid Panel Reviewed date:03/27/2024 03:14:37 PM Interpretation: Performing Lab: Notes/Report: [facility] [address] [place] [address] Original Ordering Provider: GOPI OCHOA CHOLESTEROL 153 120-200 mg/dL CHOLESTEROL.IN HDL 45 '>= 60 LOW RISK' '<= 40 HIGH RISK' CHOLESTEROL.IN LDL 102 <=129 mg/dL TRIGLYCERIDE 129 <=149 mg/dL CHOLESTEROL.IN VLDL 26 7-40 mg/dL Performing Lab see note [facility] unless otherwise specified [address] [place] [address] RF Quant Reviewed date:03/27/2024 03:15:26 PM Interpretation: Performing Lab: Notes/Report: [facility] [address] [place] [address] Original Ordering Provider: GOPI OCHOA RHEUMATOID FACTOR <10.0 <14.0 International_Unit/mL Performed at: [address] [id number] PhD Fara Braswell Performing Lab see note [facility] unless otherwise specified [address] [address] T3 Total Reviewed date:03/27/2024 03:15:17 PM Interpretation: Performing Lab: Notes/Report: [facility] [address] [place] [address] Original Ordering Provider: GOPI OCHOA TRIIODOTHYRONINE 131 71-180 ng/dL Performed at: [address] [id number] PhD Fara Braswell Performing Lab see note [facility] unless otherwise specified [address] [address] T4 & TSH Reviewed date:03/27/2024 03:17:20 PM Interpretation: Performing Lab: Notes/Report: [facility] [address] [place] [address] Original Ordering Provider: GOPI OCHOA THYROXINE 9.5 4.6-9.1 microgram/dL THYROTROPIN 2.00 0.34-5.60 mcIU/mL Performing Lab see note [facility] unless otherwise specified [address] [address] eGFR Reviewed date:03/27/2024 03:14:04 PM Interpretation: Performing Lab: Notes/Report: [facility] [address] [place] [address] Original Ordering Provider: GOPI OCHOA eGFR 124 >=59 mL/min/1.73 m2 Performing Lab see note [facility] unless otherwise specified [address] [address] Reason For Referral Reason If she can get in so on that would be good. *12/13 LVM MULTIPLE TIMES, SENT SMS Diagnosis 1 Acute stress disorde r (F43.0) Diagnosis 2 PILO (generalized anx iety disorder) (F41.1) Referral Organization [facility] Referring Provider First Name Maria R Referring Provider Last Name Naif Referring Provider [facility] ctice Referred Organization [facility] Referred Provider Seun Benedict Referred Address [address] ,[place], [place],[address], Referred Provider Specialty Licensed Cli zackery Gear Inspector Referral Priority Routine Reason 03/30 attempted to r each pt. lvmsg requesting return call. referring for talk therapy with Maria R Romero. Diagnosis 1 Encounter for screen ing examination for mental health and behavioral disorders (Z13.30) Referral Organization [facility] Referring Provider First Name Maria R Referring Provider Last Name Naif Referring Provider [facility] ctice Referred Organization [facility] Referred Provider Maria R Romero Referred Address [address] ,[place],[address], Referred Provider Specialty Talk Ther apy Referral Priority Routine Medications Medication SIG (Take, Route, Fr equency, [...] all Total Score 7 Intepretation Mild Depression PRAPARE Question Answer Notes Date Completed/Updated: 07/21/2024 What is your current housing situation? I have h ousing Are you worried about losing your housing? No What is the highest level of school that you have finished? 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 Check all that apply I do not have problems meeting my needs Has lack of transportation k ept you from medical appointments, meetings, work or from getting things needed for daily living? No How often do you see or talk to people that you care about and feel close to? (For example: talking to friends on the phone, visiting friends or family, going to shinto or club meetings) More than 5 times a week How stressed are you? Stress is when someone feels tense, nervous, anxious, or cant sleep at night because their mind is troubled A little bit In the past year have you sp ent more than 2 nights in a row in a prison, skilled nursing, skilled nursing center, or juvenile correctional facility? No Are you a refugee? No What country are you from? [place] Do you feel physically and e motionally safe where you currently live? Yes In the past year, have you b een afraid of your partner or ex-partner? No PRAPARE Score: 2 AUDIT-C (Standard) Question Answer Notes Did you have a drink containing alcohol in the p ast year? No Points 0 Interpretation Negative Tobacco Control (Standard) Question Answer Notes Tobacco use: Uses tobacco in other forms Additional Findings: Tobacco user e-cigarette Section Notes: VAPES. VAPES. VAPES. Nicotine free. PT vapes Vapes Vapes Vapes Vapes Vapes Vapes Vapes Problems Problem Type SNOMED Code ICD Code Onset Dates Problem Status W/U Status Risk Notes Problem Tobacco user (714610030) Nicotine dependence, unspecified, uncomplicated (F17.200) Active confirmed Problem 976145199 Other insomnia (G47.09) Active confirmed Problem 825147728 Morbid obesity (E66.01) Active confirmed Problem 75351994 Other chronic pain (G89.29) Active confirmed Problem 43218542 Chronic fatigue (R53.82) Active confirmed Problem 96193136 PTSD (post-traumatic stress disorder) (F43.10) Active confirmed Problem 128870009 Panic attacks (F41.0) Active confirmed Problem 18363977 Acute stress disorder (F43.0) Active confirmed Problem 502127955323396 Right carpal tunnel syndrome (G56.01) Active confirmed Problem 26268441 ADHD (attention deficit hyperactivity disorder), 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 confirmed Problem 52661508 PILO (generalized anxiety disorder) (F41.1) Active confirmed Vital Signs Heart Rate 89 /min 10/31/2024 Temperature 97.8 degrees Fahrenheit 10/31/2024 Respiratory Rate 20 /min 07/21/2024 Oximetry 98 % 10/31/2024 Blood pressure diastolic 54 mm Hg 10/31/2024 Height 63 in 10/31/2024 Blood pressure systolic 105 mm Hg 10/31/2024 Weight 305.4 lbs 10/31/2024 BMI 54.09 kg/m2 10/31/2024 Encounters Encounter Location Date Provider Diagnosis [facility] [address] [place] [address] 03/23/2024 MariaR Ochoa [facility] [address] [place] [address] 03/27/2024 Maria R Ocoha [facility] [address] [place] [address] 04/12/2024 Maria R Ochoa Morbid obesity E66.0 1 and PILO (generalized anxiety disorder) F41.[address] [place] [address] 04/25/2024 Maria R Ochoa [facility] [address] [place] [address] 07/05/2024 Maria R Ochoa Morbid obesity E66.0 1 and PILO (generalized anxiety disorder) F41.1 [facility] [address] [place] [address] 07/13/2024 Maria R Ochoa [facility] [place] [address] 07/15/2024 Maria R Ochoa [facility] [address] [place] [address] 10/07/2024 Maria R Ochoa PILO (generalized anxiety disorder) F41.1 [facility] [address] [place] [address] 07/21/2024 Jeff Harrison Nexplanon removal Z30.46 [facility] [address] [place] [address] 04/29/2024 Maria R Romero PTSD (post-traumatic stress disorder) F43.10 [facility] [address] [place] [address] 10/03/2024 Maria R Romero PTSD (post-traumatic stress disorder) F43.10 [facility] [address] [place] [address] 10/12/2024 Burt Jarrett Encounter for dental examination and cleaning with abnormal findings Z01.21 ; Other dental procedure status Z98.818 ; Disturbances in tooth eruption K00.6 ; Acute gingivitis, plaque induced K05.00 and Dental caries on pit and fissure surface penetrating into dentin K02.[address] [address] [place] [address] 10/31/2024 Veronique Slingwine PILO (generalized anxiety disorder) F41.1 ; Panic attacks F41.0 ; Acute stress disorder F43.0 ; Mild depression F32.A ; Moderate binge-eating disorder F50.811 and ADHD (attention deficit hyperactivity disorder), inattentive type F90.0 [address] [address] [place] [address] 03/22/2024 Maria R Ochoa Chronic fatigue R53.82 ; PILO (generalized anxiety disorder) F41.1 ; Nicotine dependence, unspecified, uncomplicated F17.200 ; Pain in right hip M25.551 ; Pain in right knee M25.561 ; Pain in left knee M25.562 ; Other chronic pain G89.29 ; Pain in left hip M25.552 and PTSD (post-traumatic stress disorder) F43.[address] [address] 11/19/2023 Maria R Ochoa Nicotine dependence, unspecified, uncomplicated F17.200 ; PILO (generalized anxiety disorder) F41.1 ; Panic attacks F41.0 ; Acute stress disorder F43.0 and Morbid obesity E66.[address] [address] 04/12/2024 Maria R Ochoa PILO (generalized anxiety disorder) F41.1 ; PTSD (post-traumatic stress disorder) F43.10 and Morbid obesity E66.[address] [address] 09/09/2024 Maria R Ochoa PILO (generalized anxiety disorder) F41.1 ; Acute stress disorder F43.0 ; PTSD (post-traumatic stress disorder) F43.10 and Morbid obesity E66.01 Assessments Encounter Date Diagnosis (ICD Code) Assessment Notes Treatment Notes Treatment Clinical Notes Section Notes 11/19/2023 Nicotine dependence, unspecified, uncomplicated (ICD-10 - F17.200) 11/19/2023 PILO (generalized anxiety disorder) (ICD-10 - F41.1) Discussed with patient that I set her up with provider to help with medication management since patient is having so many issues and medication is not working like it used to. Started new medication today that should help with sleep as well. 03/22/2024 Chronic fatigue (ICD-10 - R53.82) Today we discussed symptoms that patient has been experiencing. Based on the symptoms and presentation, we will start by ordering lab work and once I have results I will contact patient so we can discuss results and next steps 03/22/2024 PILO (generalized anxiety disorder) (ICD-10 - F41.1) Restarted patient's medication today. Also discussed patient history of relationship with mother. Encouraged patient to follow up with therapy. Patient is open to follow up with our therapist that specializes in abuse 04/12/2024 PILO (generalized anxiety disorder) (ICD-10 - F41.1) Patient will continue medication today and follow through with therapy appointment. Follow up in 1 month 04/12/2024 Morbid obesity (ICD-10 - E66.01) 04/29/2024 PTSD (post-traumatic stress disorder) (ICD-10 - F43.10) 07/05/2024 Morbid obesity (ICD-10 - E66.01) 07/21/2024 Nexplanon removal (ICD-10 - Z30.46) Patient had Nexplanon removal done successfully with minimal bleeding. Patient tolerated the procedure well. Emphasized ice and keep the bandaging on for at least 12 hours with the wrap. 09/09/2024 PILO (generalized anxiety disorder) (ICD-10 - F41.1) Continued medications today for patient at this time and patient is scheduled to see provider 10/03/2024 PTSD (post-traumatic stress disorder) (ICD-10 - F43.10) 10/07/2024 PILO (generalized anxiety disorder) (ICD-10 - F41.1) 10/12/2024 Encounter for dental examination and cleaning with abnormal findings (ICD-10 - Z01.21) 10/31/2024 Panic attacks (ICD-10 - F41.0) 10/31/2024 PILO (generalized anxiety disorder) (ICD-10 - [...] patient crisis plan. Provided crisis hotline number. States has good support system. Made aware to contact office if has an increase in suicidal thoughts. If outside of office hours, patient to go to the ER. Patient will call the office with any questions or concerns. 10/31/2024 Acute stress disorder (ICD-10 - F43.0) 10/12/2024 Other dental procedure status (ICD-10 - Z98.818) 09/09/2024 Acute stress disorder (ICD-10 - F43.0) 07/05/2024 PILO (generalized anxiety disorder) (ICD-10 - F41.1) 04/12/2024 PILO (generalized anxiety disorder) (ICD-10 - F41.1) 03/22/2024 Nicotine dependence, unspecified, uncomplicated (ICD-10 - F17.200) 11/19/2023 Panic attacks (ICD-10 - F41.0) Take as needed medication as we discussed and put in referral as we discussed for patient with therapy in [place]. She is okay with male therapist she states (as long as they are nice) 11/19/2023 Acute stress disorder (ICD-10 - F43.0) 03/22/2024 Pain in right hip (ICD-10 - M25.551) 09/09/2024 PTSD (post-traumatic stress disorder) (ICD-10 - F43.10) 10/12/2024 Disturbances in tooth eruption (ICD-10 - K00.6) 10/31/2024 Mild depression (ICD-10 - F32.A) 10/31/2024 Moderate binge-eating disorder (ICD-10 - F50.811) 10/12/2024 Acute gingivitis, plaque induced (ICD-10 - K05.00) 09/09/2024 Morbid obesity (ICD-10 - E66.01) 03/22/2024 Pain in right knee (ICD-10 - M25.561) Labs ordered as discussed to start with at this time. Once we have results we can determine next step in treatment plan 11/19/2023 Morbid obesity (ICD-10 - E66.01) Continue to make better lifestyle choices and we will follow up in 2 months 03/22/2024 Pain in left knee (ICD-10 - M25.562) 10/12/2024 Dental caries on pit and fissure surface penetrating into dentin (ICD-10 - K02.52) 10/31/2024 ADHD (attention deficit hyperactivity disorder), inattentive [...] problems All questions and concerns discussed . 03/22/2024 Other chronic pain (ICD-10 - G89.29) 03/22/2024 Pain in left hip (ICD-10 - M25.552) 03/22/2024 PTSD (post-traumatic stress disorder) (ICD-10 - F43.10) 04/12/2024 PTSD (post-traumatic stress disorder) (ICD-10 - F43.10) 04/12/2024 Morbid obesity (ICD-10 - E66.01) Restarted medication as discussed and making better choices and lifestyle changes. Encouraged to gently push yourself with increasing activity and trying healthy lifestyle options. FOllow up in 1 month as discussed 11/19/2023 Other Body Mass Index : Care Instructions material was published, Body Mass Index: Care Instructions material was printed 03/22/2024 Other Body Mass Index : Care Instructions material was published, Body Mass Index: Care Instructions material was printed 07/21/2024 Other Body Mass Index : Care Instructions material was published, Learning About Benefits of Quitting Smoking material was published 09/09/2024 Other Body Mass Index : Care Instructions material was published, Body Mass Index: Care Instructions material was printed Plan Of Treatment Next Appt Details Provider Name:Veronique rehman, 12/05/2024 01:45:00 PM, [address] [place], [address], Provider Name:Burt Jarrett, 0 01/27/2025 11:00:00 AM, [address], [place], [address], Provider Name:Burt Jarrett, 0 02/02/2025 08:00:00 AM, [address], [place], [address], Provider Name:Kelly Saul , 06/07/2025 08:00:00 AM, [address], [place], [address], Insurance Providers Payer Name Payer Address Payer Phone Subscriber Number Group Number Insured Name Patient Relationship to Insured Coverage Start Date Coverage End Date [facility] [address] [place] [address] [id number] HASEEB ANDRÉSZURI Self - patient is the insured 5 [employer] [facility] [address] [place] [address] [id number] HASEEB ANDRÉSZURI Self - patient is the insured 5 [employer] [place] Medicaid [address] [place] [address] [id number] HASEEB ANDRÉSZURI Self - patient is the insured 3 4 [facility] [address] [place] [phone] [id number] SAROJ MEMBRENO Self - patient is the insured 3 4 [facility] [address] [place] [address] [id number] SAROJ MEMBRENO Self - patient is the insured 4 4 [facility] [address] [place] [address] [id number] SAROJ MEMBRENO Self - patient is the insured 4 4 [employer] [place] Medicaid [address] [place] [address] [id number] SAROJ MEMBRENO Self - patient is the insured 5 [facility] [address] [place] [address] [id number] SAROJ MEMBRENO Self - patient is the insured 5 [employer] [address] [address] [place] [address] [id number] SAROJ MEMBRENO Self - patient is the insured 1 Medical (General) History Medical History History ICD Code ANXIETY DEPRESSION BACK PAIN ADHD Surgical History Surgery Date(Month/Year) none Hospitalization History Reason Date(Month/Year) none
--- OUTSIDE RECORDS SUMMARY | 2024-11-07 20:01 | XMS_ITS | Clinical Summary ---
Author Organization [address] [facility] Address [id number] [address] [place] [address] Care Team Providers Care Infantryman Name Role Phone Pcp, Not In System Primary Care Provider Unavail able Allergies No known active allergies Medications acyclovir (ZOVIRAX) 5 % ointment Apply topically to affected area every 3 hours while awake 15 g 8 Active Active Problems No known active problems Social History Tobacco Use Types Packs/Day Years Used Date Smoking Tobacco: Never Smokeless Tobacco: Never Alcohol Use Standard Drinks/Week Comments No 0 (1 standard drink = 0.6 oz pur e alcohol) Childcare Answer Date Recorded Childcare Unknown 11/03/2018 Employment Answer Date Recorded Employment Unknown 11/03/2018 Purpose - Life Answer Date Recorded Purpose and direction in life Unknown Comments Unknown Sex and Gender Information Value Date Recorded Sex Assigned at Not on file Legal Sex Female 12:00 PM EDT Gender Identity Not on file Sexual Orientation Not on file Last Filed Vital Signs Vital Sign Reading Time Taken Comments Blood Pressure 131/79 11/12/2017 6:32 PM EDT Pulse 65 11/12/2017 6:32 PM EDT Temperature 36.8 C (98.2 F) 11/12/2017 6:32 PM EDT Respiratory Rate 18 11/12/2017 6:32 PM EDT Oxygen Saturation 98% 11/12/2017 6:32 PM EDT Inhaled Oxygen Concentration - - Weight 118.4 kg (261 lb 1.6 oz) 11/12/2017 6:32 PM EDT Height 154.9 cm (5' 1 ) 11/12/2017 6:32 PM EDT Body Mass Index 49.33 11/12/2017 6:32 PM EDT Plan of Treatment Not on file Medical Devices Not on file Insurance [employer] Care Teams Infantryman Relationship Specialty Start Date End Date Pcp, Not In System [place] [address] PCP - General Family Medicine 11/12/17
--- OUTSIDE RECORDS SUMMARY | 2024-11-07 20:01 | XMS_ITS | Encounter Summary ---
Author Organization [facility] Address [address] [place] [address] Care Team Providers Care Electronics Repair Technician Name Role Phone Mega Davenport MD Unavailable [phone] Karly Baca Unavailable Unavailable Encounter Details Date Type Department Care Team (Late st Contact Info) Description 12/05/2022 Abstract [facility] [address] [address] Ira Jensen PA [address] [place], [place] [id number] Social History Tobacco Use Types Packs/Day Years Used Date Smoking Tobacco: Never Assessed Comments Unknown Sex and Gender Information Value Date Recorded Sex Assigned at Not on file Legal Sex Female 12:17 PM EDT Gender Identity Not on file Sexual Orientation Not on file COVID-19 Exposure Response Date Recorded In the last 10 days, have yo u been in contact with someone who was confirmed or suspected to have Coronavirus/COVID-19? No / Unsure 11/17/2022 11:50 AM EDT documented as of this encounter Plan of Treatment Not on file documented as of this encounter Visit Diagnoses Not on filedocumented in this encounter Care Teams Electronics Repair Technician Relationship Specialty Start Date End Date Mega Davenport MD [address] [facility] [address] [place] [address] PCP [facility] [employer] 08/24/23 11/22/23 Karly Baca PCP - [facility] [employer] 11/23/23 documented as of this encounter
--- OUTSIDE RECORDS SUMMARY | 2024-11-07 20:01 | XMS_ITS | Clinical Summary ---
Author Organization [facility] Address [address] [place] [address] Care Team Providers Care Long Chain Quiller Tender Name Role Phone Karly Baca Unavailable Unavailable Allergies No known active allergies Medications Abilify 5 MG tablet 1 (one) time each day at the same time. Active BENZAC AC WASH 10 % external wash WASH, LATHER AND RINSE AFFECTED AREAS IN THE GROIN AREA DAILY 3 Active doxycycline (Vibramycin) 100 MG capsule TAKE 1 CAPSULE BY MOUTH DAILY WITH FOOD AND WATER 3 Active Victoza 18 MG/3ML injection 1 (one) time each day at the same time. Active spironolactone (Aldactone) 50 MG tablet Active Effexor XR 37.5 MG 24 hr capsule Take 37.5 mg by mouth 1 (one) time each day at the same time. Active traZODone (Desyrel) 100 MG tablet Take 100 mg by mouth at bedtime Active etonogestrel-elut ing 68 mg contraceptive implantIndication s:Encounter for removal and reinsertion of Nexplanon 1 each by Implant route 1 (one) time for 1 dose. 1 each 3 11/08/19 25 Discontin ued(Thera py completed ) clindamycin (Cleocin T) 1 % external solution APPLY TO AFFECTED AREAS ON GROIN ONCE DAILY AFTER SHOWER. 3 11/08/19 25 Discontin ued(Thera py completed ) Encounters Date Type Department Care Team Description 11/07/2024 11:00 AM EDT Office Visit [facility] [address] [place] [address] Ira Jensen PA Well woman exam with routine gynecological exam 11/07/2024 Bamboo flowsheet [facility] [address] [place] [address] Ira Jensen PA from Last 3 Months Family History Medical History Relation Name Comments epilepsy Mother Relation Name Status Comments Brother 1 Alive Brother 2 Alive Father Alive Mother Alive Sister Alive Social History Tobacco Use Types Packs/Day Years [...] (301 lb) 11/07/2024 11:53 AM EDT Height 160 cm (5' 3 ) 12/08/2022 2:02 PM EDT Body Mass Index 53.32 12/08/2022 2:02 PM EDT Plan of Treatment Health Maintenance Due Date Last Done Comments Influenza Vaccine (Season Ended) 2025 04/07/2020, 03/14/2019, 02/21/2014, Additional history exists Insurance [employer] BCBS [place]ICA[place] Care Teams Long Chain Quiller Tender Relationship Specialty Start Date End Date Karly Baca PCP - [facility] CUSTODIAL ENGINEER 11/23/23
--- OUTSIDE RECORDS SUMMARY | 2024-11-07 20:01 | XMS_ITS | Clinical Summary ---
Author Organization [facility] Address [address] [place] [address] Care Team Providers Care Band Saw Runner Name Role Phone Maria R Disla CREDIT CASHIER Unavailable [phone] Allergies No known active allergies Medications ARIPiprazole (ABILIFY) 5 mg tablet Take 1 tablet by mouth once daily. Active Benzoyl Peroxide 10 % external wash Apply 1 Application to affected area once daily. 3 Active clindamycin (CLEOCIN) 1 % external solution Apply 1 Application to affected area once daily. 3 Active etonogestrel (NEXPLANON) subdermal implant 68 mg 1 Each by SUBDERMAL route. 3 Active spironolactone (ALDACTONE) 50 mg tablet Take 1 tablet by mouth once daily. Active doxycycline hyclate (VIBRAMYCIN) 100 mg capsule Take 1 capsule by mouth once daily. 3 Active Active Problems Problem Noted Date Diagnosed Date Generalized anxiety disorder 01/19/2023 Obesity, Class III, BMI >= 40 01/19/2023 Depression 01/19/2023 ADHD 01/19/2023 Asthma 01/19/2023 Encounters Date Type Department Care Team Description 08/08/2024 Patient Msg General Surgery [address] [place] [address] Provider, [facility] Join the weight loss study: Surgery vs Medication. from Last 3 Months Immunizations Immunization Administration Dates Next Due Haemophilus influenzae b (Hi b PRP-T) vaccine, 4-dose series (ACTHIB, HIBERIX) 06/27/2002 Haemophilus influenzae b-hep atitis B (Hib-HepB) vaccine (COMVAX) 2001,2001,2001 diphtheria tetanus pertussis (DTaP) vaccine, pediatric (INFANRIX) 06/27/2002 diphtheria tetanus pertussis (DTaP) vaccine, pediatric, 5 pertussis antigens (DAPTACEL) 01/16/2005 diphtheria tetanus pertussis (DTaP) vaccine, unspecified formulation 2001,2001,2001 hepatitis A (HepA) vaccine, 2-dose series, ped/adol (HAVRIX-PEDS, VAQTA-PEDS) 07/07/2013,03/01/2008 human papillomavirus (HPV9) vaccine, 9 valent (GARDASIL 9) 03/16/2013,10/08/2011,07/03/2011 influenza (IIV3) vaccine, tr ivalent (AFLURIA, FLULAVAL, FLUVIRIN, FLUZONE) 02/21/2014,05/20/2005,04/11/2005 influenza (IIV4) vaccine, ag e 6 mo - 64 yr, quadrivalent, PF (AFLURIA, FLUARIX, FLULAVAL, FLUZONE) 03/16/2013 influenza (IIV4) vaccine, qu adrivalent (AFLURIA, FLULAVAL, FLUZONE) 04/07/2020,03/14/2019 measles mumps rubella (MMR) vaccine (M-M-R II, PRIORIX) 01/16/2005,02/02/2002 meningococcal (MenACWY-CRM) vaccine, quadrivalent (MENVEO) 09/13/2018 meningococcal (MenACWY-D) va ccine, quadrivalent (MENACTRA) 07/07/2013 pneumococcal (PCV7) vaccine, 7 valent (PREVNAR 7) 2001,2001 poliovirus (IPV) vaccine, in activated (IPOL) 01/16/2005,2001,2001,05/06 tetanus diphtheria pertussis (Tdap) vaccine, age 7+ yr (ADACEL, BOOSTRIX) 07/07/2022,07/07/2013 varicella (HUONG) vaccine (VARIVAX) 03/01/2008,03/2002 Family History Medical History Relation Comments Anesthesia Problems No Family History Blood Clots No Family History Heart Attack No Family History Social History Tobacco Use Types Packs/Day Years Used Date Smoking Tobacco: Never Smokeless Tobacco: Never Tobacco Cessation:Counseling Given: Not Answered Comments:vaping- Quit 02/02/23 Alcohol Use Standard Drinks/Week Comments Yes 0 (1 standard drink = 0.6 oz pur e alcohol) once a month Area Deprivation Index Answer Date Solomon rded National Score (1-100), lower number is lower ri sk 76 01/19/2023 State Score (1-10), lower number is lower risk 6 01/19/2023 Data from: https://www.neighborhoodatlas.medicine.[facility].edu/. Last address used for calculation [address] 01/19/2023 Comments No Sex and Gender Information Value Date Recorded Sex Assigned at Female 01/17/2023 7:46 PM EDT Legal Sex Female 11:04 AM EDT Gender Identity Female 01/17/2023 7:46 PM EDT Sexual Orientation Bisexual 01/17/2023 7: 46 PM EDT Last Filed Vital Signs Vital Sign Reading Time Taken Comments Blood Pressure 115/72 03/03/2023 10:40 AM EDT Pulse 67 03/03/2023 10:45 AM EDT Temperature - - Respiratory Rate 12 03/03/2023 10:4 5 AM EDT Oxygen Saturation 100% 03/03/2023 10: 45 AM EDT Inhaled Oxygen Concentration - - Weight 113.4 kg (250 lb) 02/04/2023 10: 25 AM EDT documented at visit 01/30/23 Height 162.6 cm (5' 4 ) 02/04/2023 10:2 5 AM EDT measured 01/19/23 Body Mass Index 42.91 02/04/2023 10:25 AM EDT Plan of Treatment Health Maintenance Due Date Last Done Comments Peds To Adult Transition Ini tial Discussion 2013 Peds To Adult Transition Nuria ual Assessment 2015 Meningococcal B Vaccine (1 o f 2 - Standard) 2017 Annual PCP Team Chronic Dise ase Visit 2019 Chlamydia Screening (18-24) 2019 GC (Gonorrhea) Screening (18-24) 2019 HIV Screening 2019 Hepatitis C Screening 2019 Cervical Cancer Screening 2022 Covid-19 Vaccine (2023-2 5 season) 2024 Influenza Vaccine (Season Ended) 2025 04/07/2020, 03/14/2019, 02/21/2014, Additional history exists DTaP,Tdap,Td Vaccine (8 - Td or Tdap) 07/07/2032 07/07/2022, 07/07/2013, 01/16/2005, Additional history exists Hepatitis B Vaccine Completed 2001, 2001, 2001 HPV Vaccine Completed 03/16/2013, 09/22, 07/03/2011 Insurance [employer] BCBS MEDICAID [place] Care Teams Band Saw Runner Relationship Specialty Start Date End Date Maria R Disla CNP [address] [place], [place] [address] [address] Referring Family Medicine 01/07/23
--- OUTSIDE RECORDS SUMMARY | 2024-11-07 20:01 | XMS_ITS | Encounter Summary ---
Author Organization [facility] Address [address] [place] [address] Care Team Providers Care Church Worker Name Role Phone Maria R Disla FLUID JET CUTTER OPERATOR Unavailable [phone] Source Comments In the event this information is protected by the Federal Confidentiality of Alcohol and Drug AbusePatient Records regulations: The Federal rules restrict any use of the information to criminally investigate or prosecute any alcohol or drug abuse patient.[facility] Encounter Details Date Type Department Care Team (Late st Contact Info) Description 02/10/2023 Patient Msg Nutrition [address] [place] [id number] Provider, [facility] Nutrition Visit Social History Tobacco Use Types Packs/Day Years [...] is lower risk 6 01/19/2023 Data from: https://www.neighborhoodatlas.medicine.[facility].edu/. Last address used for calculation [address] 01/19/2023 Comments No Sex and Gender Information [...] on filedocumented in this encounter Care Teams Church Worker Relationship Specialty Start Date End Date Maria R Disla CNP [address] [place] [address] Referring Family Medicine 01/07/23 documented as of this encounter
[2024-11-10 13:12] LABS: Age Gdln ACOG Testing Note (.); IGP, rfx Aptima HPV ASCU Note (.)
== END 2024-11-07 19:58 | disposition home or self-care (01) ==
LOC: LAB 19:57
PROVIDERS: PCP Nurse Practitioner Family; Visit Provider Physician Assistant
DX: Z01.419 Encounter for gynecological examination (general) (routine) without abnormal findings (principal)
CPT/HCPCS: 88175

== ENCOUNTER 2025-01-19 09:44 | Outpatient (OUT) | payer MEDICAID, SELFPAY ==
--- OUTSIDE RECORDS SUMMARY | 2024-12-05 04:00 | XMS_ITS ---
Author Organization [facility] Address [address] [place] [address] Care Team Providers Care Orthopedics Pediatric Physician Name Role Phone Maria R Glynn Primary Care Provider [phone] Cinda Cordon [phone] REASON FOR VISIT PT 11 WEEKS Encounters Encounter Location Date Provider Diagnosis [facility] [address] [place] [address] 12/05/2024 Cinda Medina Plan Of Treatment Next Appt Details Provider Name:Burt Jarrett, 0 01/27/2025 11:00:00 AM, [address] [place], [address], Provider Name:Burt Jarrett, 0 02/02/2025 08:00:00 AM, [address] [place], [address], Provider Name:Kelly Kg , 06/07/2025 08:00:00 AM, [address] [place], [address], Progress Notes * SAROJ MEMBRENODOB: [birth year] (25 yo F)Acc No.[id number]:12/05/2024 Patient: ANMNARIE COLBERTTEN Provider: Lincoln MEDINA DDS :2000 A ge:24 Y S ex:Female Date:12/05/2024 Address:[address], [place], [id number] Pcp:Maria R Glynn Subjective: * Chief Complaints: * 1 . PT 11 WEEKS . * Medical History: Objective: * Vitals: Assessment: Plan: * Treatment: * Images: * Electronic signature of Lucy Medina DDS on 01/19/2025 at 09:53 AM EDT Sign off status: Pending * Provider: Lincoln MEDINA DDS Date: 12/05/2024 Generated for Keke sebastian/Marga/Jose on: 01/19/2025 09:53 AM EDT
--- OUTSIDE RECORDS SUMMARY | 2024-12-05 09:45 | XMS_ITS ---
Author Organization [facility] Address [address] [place] [address] Care Team Providers Care Cattery Operator Name Role Phone Carlos Glynnie Primary Care Provider Veronique West [phone] REASON FOR VISIT 1 month f/u Encounters Encounter Location Date Provider Diagnosis [facility] [address] [place] [address] 12/05/2024 Veronique West Plan Of Treatment Next Appt Details Provider Name:Burt Montoyazk, 0 01/27/2025 11:00:00 AM, [address] [place], [address], Provider Name:Burt Jarrett, 0 02/02/2025 08:00:00 AM, [address] [place], [address], Provider Name:Kelly Saul , 06/07/2025 08:00:00 AM, [address] [place], [address], Progress Notes * SAROJ MEMBRENODOB: [birth year] (25 yo F)Acc No.[id number]:12/05/2024 Behavioral Health Patient: SAROJ COLBERT Appointment Provider: Claire WEST PMHNP-BC :2000 A ge:24 Y S ex:Female Date:12/05/2024 Address:[facility] [address], [place], [id number] Pcp:Maria R Glynn Subjective: * Chief Complaints: * 1 . 1 month f/u. * Medical History: Objective: * Vitals: Assessment: Plan: * Treatment: * Images: * Electronic signature of MAGGIE Ignacio i on 01/19/2025 at 08:45 AM EDT Sign off status: Pending * Appointment Provider: BENIGNO JARAMILLO Date: 0 12/05/2024 Generated for Keke sebastian/Marga/Jose on: 01/19/2025 08:45 AM EDT
--- OUTSIDE RECORDS SUMMARY | 2025-01-02 06:00 | XMS_ITS ---
Author Organization [facility] Address [address] [place] [address] Care Team Providers Care Manager Applied Name Role Phone Carlos Glynnie Primary Care Provider Ignacia Ellington Unavailable Unavailable REASON FOR VISIT PROPHY Encounters Encounter Location Date Provider Diagnosis [facility] [address] [place] [address] 01/02/2025 Ignacia Ellington Plan Of Treatment Next Appt Details Provider Name:Burt Jarrett, 0 01/27/2025 11:00:00 AM, [address] [place], [address], Provider Name:Burt Jarrett, 0 02/02/2025 08:00:00 AM, [address] [place], [address], Provider Name:Kelly Saul , 06/07/2025 08:00:00 AM, [address] [place], [address], Progress Notes * SAROJ MEMBRENODOB: [birth year] (25 yo F)Acc No.[id number]:01/02/2025 Patient: ANNMARIE COLBERTTEN Provider: [address] Ell[address] :2000 A ge:24 Y S ex:Female Date:01/02/2025 Address:[address], [address], [place], [id number] Pcp:Maria R Glynn Subjective: * Chief Complaints: * 1 . PROPHY. * Medical History: Objective: * Vitals: Assessment: Plan: * Treatment: * Images: * Electronic signature of Eliot Ellington on 01/19/2025 at 08:45 AM EDT Sign off status: Pending * Provider: Mulu Ellington Date: 01/02/2025 Generated for Keke sebastian/Marga/Jose on: 01/19/2025 08:45 AM EDT
--- OUTSIDE RECORDS SUMMARY | 2025-01-19 08:50 | XMS_ITS | Encounter Summary ---
Author Organization [facility] Address [address] [place] [address] Care Team Providers Care Oral And Maxillofacial Surgery Resident Name Role Phone Karly Baca Unavailable Unavailable Reason for Visit * Reason Comments Routine Visit Pt present today as a NEW OB TRANSFER patient. Pt transferred from Dr. Fofana. Encounter Details Date Type Department Care Team (Late st Contact Info) Description 01/19/2025 8:50 AM EDT Initial [facility] [address] [place] [address] Rodrigo Guzman DO [address] [place] [address] GA: [id number] Social History Tobacco Use Types Packs/Day Years Used Date Smoking Tobacco: Never Smokeless Tobacco: Never Alcohol Use Standard Drinks/Week Comments Not Currently 0 (1 standard drink = 0.6 oz pur e alcohol) caffeine intake: none Estimated Date of Delivery Comme nts Yes 07/31/2025 Based on Ultraso und Sex and Gender Information Value Date Recorded Sex Assigned at Not on file Legal Sex Female 12:17 PM EDT Gender Identity Not on file Sexual Orientation Not on file documented as of this encounter Last Filed Vital Signs Vital Sign Reading Time Taken Comments Blood Pressure 122/76 01/19/2025 9:01 AM EDT Pulse - - Temperature - - Respiratory Rate - - Oxygen Saturation - - Inhaled Oxygen Concentration - - Weight 136 kg (299 lb) 01/19/2025 9:01 AM EDT Height - - Body Mass Index 52.97 12/08/2022 2:02 PM EDT documented in this encounter Plan of Treatment Upcoming Encounters Date Type Department Care Team (Late st Contact Info) Description 02/20/2025 11:30 AM EDT Routine [facility] [address] [place] [address] Carmita Will, INSTRUCTIONAL INTERVENTIONIST [address] [place] [address] Scheduled Orders Name Type Priority Associated Diagnoses Orde r Schedule Hemoglobin A1c Lab Routine First trimester ([facility]) 12 weeks gestation of ([facility]) Ordered: 01/19/2025 documented as of this encounter Goals Goal Patient Goal Type Associated Problems Recent Progress Patient-Stated? Author Reminders Care Plan OB Reminders No Darlyn Gonzalez RN documented as of this encounter Procedures Procedure Name Priority Date/Time Associated Diagnosis Comments POCT URINALYSIS DIPSTICK Routine 01/19/2025 9:06 AM EDT First trimester ([facility]) documented in this encounter Results * POCT urinalysis dipstick manually resulted (01/19/2025 9:06 AM EDT) Color, UA Yellow Clarity, UA Clear Glucose, UA Negative Negative - 2000(110) ++++ mg/dL Bilirubin, UA Negative Negative - 4(70) +++ mg/dL Ketones, UA Negative Negative - 160(16) ++++ mg/dL Spec Grav, UA 1.020 1 - 1.03 Blood, UA Negative Negative - 50 Dao/mcL pH, UA 6.0 5 - 9 Protein, UA Negative Negative - 2000(20) ++++ mg/dL Urobilinogen, UA 1.0 0.2 - 12 mg/dL Leukocytes, UA Negative Negative - 500+++ Hernandez/mcL Nitrite, UA Negative Negative - Positive Urine 01/19/2025 9:06 AM EDT Rodrigo Thomas DO POINT OF CARE TEST ENTER/EDIT OR DERABLES Final Result documented in this encounter Visit Diagnoses Diagnosis First trimester ([facility]) state, incidental 12 weeks gestation of ([facility] documented in this encounter Additional Health Concerns Active Problems Noted Date Diagnosed Date OB Reminders 12/02/2024 documented as of this encounter Care Teams Oral And Maxillofacial Surgery Resident Relationship Specialty Start Date End Date Karly Baca PCP - [facility] 11/23/23 documented as of this encounter
--- OUTSIDE RECORDS SUMMARY | 2025-01-19 09:53 | XMS_ITS | Clinical Summary ---
Author Organization [facility] Address [address] [place] [address] Care Team Providers Care Striping Machine Operator Name Role Phone Karly Baca Unavailable Unavailable Allergies No known active allergies Medications Vit-Fe Fumarate-FA ( Vitamins) 28-0.8 MG tabletIndication s:Encounter for supervision of normal first in first trimester ([facility]) Take 1 tablet by mouth Daily 30 tablet 11 12/02/2024 12/03/19 26 Active valACYclovir (Valtrex) 1 g tablet Take 1,000 mg by mouth in the morning and 1,000 mg before bedtime. 11/15/2024 Active Encounters Date Type Department Care Team Description 01/19/2025 8:50 [place] [address] Rodrigo Guzman, GA: 12w3d 01/19/2025 [place] [address] Rodrigo Guzman DO 12/19/2024 10:15 AM EDT Ancillary Procedure [facility] [address] [place] [id number] Unable to hear heart tones as reason for ultrasound scan ([facility]); Maternal obesity, antepartum, first trimester ([facility]); Size of fetus inconsistent with dates in first trimester ([facility]) 12/19/2024 9:15 AM EDT Initial [facility] [address] [place] [address] Ivan Fofana, DO GA: 8w0d 12/19/2024 Travel 12/08/2024 Telephone [facility] [place] [facility] [address] [place] [address] Alanis Torres, TRUCK BODY BUILDER APPRENTICE 12/06/2024 Telephone [facility] [place] [facility] [address] [place] [address] Alanis Torres, TRUCK BODY BUILDER APPRENTICE Results 12/02/2024 11:00 AM EDT Initial [facility] [place] [facility] [address] [place] [address] [place]: 5w4d 12/02/2024 Travel 11/28/2024 Telephone [facility] [place] [facility] [address] [place] [address] Ivan Fofana, 11/17/2024 Orders Only [facility] [address] [place] [address] Katie Nguyen LPN 11/07/2024 11:00 AM EDT Office Visit [facility] [address] [place] [address] Ira Jensen PA Well woman exam with routine gynecological exam 11/07/2024 Clinisync Result Encounter [facility] Department Unsolicited Ira Jensen PA 11/07/2024 Bamboo flowsheet [facility] [address] [place] [address] Ira Jensen PA from Last 3 Months Family History Medical History Relation Name Comments ADD / ADHD Brother 1 Autism (HCC) Brother 1 Heart murmur Brother 1 Learning disabilities Brother 1 No Known Problems Brother 2 Hyperlipidemia Father on father's s finn of family No Known Problems Maternal Grandfather Asthma Maternal Grandmother Heart disease Maternal Grandmother epilepsy Mother Uterine cancer Mother's Sister No Known Problems Paternal Grandfather No Known Problems Paternal Grandmother No Known Problems Sister Relation Name Status Comments Brother 1 Alive Brother 2 Alive Father Alive Maternal Grandfather Maternal Grandmother Mother Mother's Sister Paternal Grandfather Paternal Grandmother Sister Alive x1 Social History Tobacco Use Types Packs/Day Years Used Date Smoking Tobacco: Never Smokeless Tobacco: Never Tobacco Cessation:Counseling Given: Not Answered Alcohol Use Standard Drinks/Week Comments Not Currently [...] (299 lb) 01/19/2025 9:01 AM EDT Height 160 cm (5' 3 ) 12/08/2022 2:02 PM EDT Body Mass Index 52.97 12/08/2022 2:02 PM EDT Plan of Treatment Upcoming Encounters Date Type Department Care Team (Late st Contact Info) Description 02/20/2025 11:30 AM EDT Routine [facility] [address] [place] [address] Carmita Will, ROSS FURNACE OPERATOR [address] [address] Health Maintenance Due Date Last Done Comments Influenza Vaccine (#1) 2025 0, 03/14/2019, 02/21/2014, Additional history exists Goals Goal Patient Goal Type Associated Problems Recent Progress Patient-Stated? Author Reminders Care Plan OB Reminders No Darlyn Gonzalez, planishing hammer operator Procedure Name Priority Date/Time Associated Diagnosis Comments POCT URINALYSIS DIPSTICK Routine 01/19/2025 9:06 AM EDT First trimester ([facility]) CEPHEID CT/NG Routine 12/19/2024 3:21 PM EDT 13 weeks gestation of ([facility]) Screen for sexually transmitted diseases US OB TRANSVAGINAL Routine 12/19/2024 11 :03 AM EDT Unable to hear heart tones as reason for ultrasound scan ([facility]) Maternal obesity, antepartum, first trimester ([facility]) Size of fetus inconsistent with dates in first trimester ([facility]) POCT URINALYSIS 4 DIPSTICK Routine 12/19/2024 9:42 AM EDT 13 weeks gestation of ([facility]) IGP,RFX APT HPV ASCU,16/18,45 Routine 12/19/2024 12:00 AM EDT 13 weeks gestation of ([facility]) Screening for malignant neoplasm of cervix URINE CULTURE CLEAN CATCH REFLEX Routine 12/02/2024 12:26 PM EDT CANNABINOIDS, MS, UR RFX Routine 12/02/2024 12:26 PM EDT UR MICROSCOPIC REFLEX Routine 12/02/2024 12:26 PM EDT RPR (DX) W/REFL TITER AND CONFIRMATORY TESTING Routine 12/02/2024 12:26 PM EDT Encounter for supervision of normal first in first trimester ([facility]) HYPERCOAG PANEL INTERP Routine 12/02/2024 12:26 PM EDT Encounter for supervision of normal first in first trimester ([facility]) DRUG SCREEN 17 W/CONF, UR Routine 12/02/2024 12:26 PM EDT Encounter for drug screening HEPATITIS C ANTIBODY Routine 12/02/2024 12:26 PM EDT Encounter for supervision of normal first in first trimester ([facility]) CBC (INCLUDES DIFF/PLT) Routine 12/02/2024 12:26 PM EDT Encounter for supervision of normal first in first trimester ([facility]) BLOOD TYPE AND SCREEN GEL Routine 12/02/2024 12:26 PM EDT Encounter for supervision of normal first in first trimester ([facility]) HEPATITIS B SURFACE ANTIGEN W/REFL CONFIRM Routine 12/02/2024 12:26 PM EDT Encounter for supervision of normal first in first trimester ([facility]) RUBELLA AB (IGG), IMMUNE STATUS Routine 12/02/2024 12:26 PM EDT Encounter for supervision of normal first in first trimester ([facility]) URINALYSIS, COMPLETE Routine 12/02/2024 12:26 PM EDT Encounter for supervision of normal first in first trimester ([facility]) CULTURE, URINE, ROUTINE Routine 12/02/2024 12:26 PM EDT Encounter for supervision of normal first in first trimester ([facility]) IGP,APTIMA HPV,AGE GDLN Routine 11/07/2024 11:46 AM EDT PAP SMEAR Routine 11/07/2024 12:00 AM EDT from Last 3 Months Results * POCT urinalysis dipstick manually resulted (01/19/2025 9:06 AM EDT) Color, UA Yellow Clarity, UA Clear Glucose, UA Negative Negative - 1999(110) ++++ mg/dL Bilirubin, UA Negative Negative - 4(70) +++ mg/dL Ketones, UA Negative Negative - 160(16) ++++ mg/dL Spec Grav, UA 1.020 1 - 1.03 Blood, UA Negative Negative - 50 Dao/mcL pH, UA 6.0 5 - 9 Protein, UA Negative Negative - 1999(20) ++++ mg/dL Urobilinogen, UA 1.0 0.2 - 12 mg/dL Leukocytes, UA Negative Negative - 500+++ Hernandez/mcL Nitrite, UA Negative Negative - Positive Urine 01/19/2025 9:06 AM EDT us Rodrigo Guzman DO POINT OF CARE TEST ENTER/EDIT OR DERABLES Final Result * CEPHEID CT/NG (12/19/2024 3:21 PM EDT) SPECIMEN TYPE vaginal CHLAMYDIA CULTURE neg Negative GONORRHOEAE DNA(PCR) neg Negatvie Vaginal Fluid 12/19/2024 3:2 1 PM EDT us Ivan Fofana DO POINT OF CARE TEST ENTER/EDIT ORDERABLES Final Result * US OB transvaginal (12/19/2024 11:03 AM EDT) Anatomical Region Laterality Modality Body Ultrasound Study GA Study Date Study PAOLA Working PAOLA (Source) 12/19/2024 06/25/2025 (Last Menstrua l Period) Fetus A Measurements Value GA (days) CRL Sac Diameter Biparietal Diameter Head Circumference Abdominal Circumference Femur Length Ulna Length Humerus Length Tibia Length Heart Rate YOLK SAC MEASUREMENT CERVICAL W/FUNDAL PRESSURE CERVICAL W/ VALSALVA Narrative 12/19/2024 5:56 PM EDT Images from the original result were not included. Obstetrics & Gynecology [address] [facility] [address], [address] [address] [place] [address] - - - - - - - - - - - - - - - - - - - - - - - - - - - - - - - - - - - - - - - - - - - - - - - - - - - - - - - - - - - - - - - - - - - - Date of exam: 12/19/24 Patient name: Mark Viera : 2000 Age: 24 y.o. - - - - - - - - - - - - - - - - - - - - - - - - - - - - - - - Indication: inaudible heart tones, obesity Surgical History: none Method: Transvaginal ultrasound examination View: Adequate - - - - - - - - - - - - - - - - - - - - - - - - - - - - - - - : Type of gestation: Rivera Number of embryos: 1 - - - - - - - - - - - - - - - - - - - - - - - - - - - - - - - Assigned Dating based on: CRL: PAOLA: 07/31/25 GA: 8 weeks, 0 day(s) - - - - - - - - - - - - - - - - - - - - - - - - - - - - - - - Fetus 1: Gestational sac: visualized Location: Intrauterine Yolk sac: visualized (.43 mm) Amniotic sac: visualized Embryo: visualized Cardiac activity: present FHR: 171 bpm - - - - - - - - - - - - - - - - - - - - - - - - - - - - - - - Maternal Structures: Uterus: Visualized 8.6 x 6.1 x 4.7 cm Volume: 129 cm Appearance: normal in size and contour Right ovary: Visualized 3.2 x 2.3 x 2.7 cm Volume: 10.4 cm Appearance: The right ovary contains a 1.9 x 1.6 x 1.9 cm thick walled sonolucent cyst that is felt to represent a corpus luteum. No adnexal mass visualized Left ovary: Visualized 2.2 x 2.6 x 1.9 cm Volume: 5.8 cm Appearance: normal, no cysts visualized No adnexal mass visualized - - - - - - - - - - - - - - - - - - - - - - - - - - - - - - - - - - - - - - - - - - - - - - - - - - - - - - - - - - - - - - - - - - - - Impression: The uterus and adnexa appear normal. There is a single intrauterine measuring 8 w 0 d, which establishes an EDC of 07/31/25. The right ovary contains a 1.9 x 1.6 x 1.9 cm thick walled sonolucent cyst that is felt to represent a corpus luteum. The left ovary is unremarkable. *Please note that a normal ultrasound does not rule out anomalies* - - - - - - - - - - - - - - - - - - - - - - - - - - - - - - - - - - - - - - - - - - - - - - - - - - - - - - - - - - - - - - - - - - - - us Ivan Fofana DO IMG OB US PROCEDURES Final Re sult * POCT URINALYSIS 4 DIPSTICK (12/19/2024 9:42 AM EDT) Glucose, UA Negative Negative - 2000(110) ++++ mg/dL Protein, UA Negative Negative - 2000(20) ++++ mg/dL Urine 12/19/2024 9:42 AM EDT us Ivan Fofana DO POINT OF CARE TEST ENTER/EDIT ORDERABLES Final Result * IGP,rfx Apt HPV ASCU,16/18,45 (12/19/2024 12:00 AM EDT) Diagnosis: Comment [facility] Comment: NEGATIVE FOR INTRAEPITHELIAL LESION OR MALIGNANCY. THIS SPECIMEN WAS RESCREENED PART OF OUR UNDERCOLLAR BASTER PROGRAM. Specimen Adequacy: Comment [facility] Comment: Satisfactory for evaluation. Endocervical and/or squamous metaplastic cells (endocervical component) are present. Clinician Provided ICD10: Comment [facility] Comment: Z12.4 Z3A.13 Performed By: Comment [facility] Comment:Yris Amos, Cytolog ist (ASCP) QC Reviewed By: Comment [facility] Comment:Julian Silver tologist (ASCP) Cyto Comments . [facility] Note: Comment [facility] Comment: The Pap smear is a screening test designed to aid in the detection of premalignant and malignant conditions of the uterine cervix. It is not a diagnostic procedure and should not be used as the sole means of detecting cervical cancer. Both false-positive and false-negative reports do occur. Test Methodology: Comment [facility] Comment: This liquid based ThinPrep(R) pap test was screened with the use of an image guided system. . Comment [facility] Comment: The HPV DNA reflex criteria were not met with this specimen result therefore, no HPV testing was performed. Swab Cervical swab / Unknown 12/19/2024 12/20/2024 Comment:Cervical Swab Print r Narrative [facility] - 12/21/2024 5:07 PM EDT [facility]formed at: [facility] [address] [place] [id number] Special Education Classroom Aide: Demetri Anders MD, Phone: [phone] Performed at: - [address] [id number] Special Education Classroom Aide: Allison Miller MD, Phone: [phone] Specimen Comment: [id number] Specimen Comment: No. of containers..01 ThinPrep Vial us Ivan Fofana DO LAB BLOOD ORDERABLES Final Re sult Performing Organization Address [facility]/ZIP Co de Phone Number [facility] * (ABNORMAL) CANNABINOIDS, MS, UR RFX (12/02/2024 12:26 PM EDT) Pathologist [facility] CANNABINOIDS ++POSITIV E++(A) [facility] CARBOXY-THC 114 ng/mg creat [facility] Comment: This test is not intended to distinguish between the metabolites of gsodj-6-nbpstqsrrqfmbhniuyam, the predominant form of THC in most herbal or marijuana-based products, and qdilg-4-eajreblieetnknmblfcy, a psychoactive compound generally synthesized from other cannabinoids. 12/02/2024 12:2 6 PM EDT 12/02/2024 Narrative [facility] - 12/06/2024 6:06 AM EDT Performed at: - [facility] [address] [place] [id number] Special Education Classroom Aide: Bianca Chan [facility], Phone: [phone] us Ivan Foley Viscbenjamin DO LAB URINE ORDERABLES Final Re sult Performing Organization Address [facility] Co de Phone Number [facility] * DRUG SCREEN 17 W/CONF, UR (12/02/2024 12:26 PM EDT) CREATININE 81 >=20 mg/dL [facility] Comment:REFERENCE RANGE: Ref Range>=20 ETHANOL BIOMARKERS IA Negative CUTOFF:5 00 ng/mL [facility] AMPHETAMINES IA Negative CUTOFF:3 00 ng/mL [facility] BARBITURATES IA Negative CUTOFF:2 00 ng/mL [facility] BENZODIAZEPINES IA Negative CUTOFF:5 0 ng/mL [facility] COCAINE METABOLITE IA Negative CUTOFF:1 50 ng/mL [facility] PHENCYCLIDINE IA Negative CUTOFF:2 5 ng/mL [facility] CANNABINOIDS IA Comment CUTOFF:2 0 ng/mL [facility] Comment:Further testing hugo cated 6-ACETYLMORPHINE IA Negative CUTOFF:1 0 ng/mL [facility] OPIATE CLASS IA Negative CUTOFF:1 00 ng/mL [facility] OXYCODONE CLASS IA Negative CUTOFF:1 00 ng/mL [facility] METHADONE IA Negative CUTOFF:1 00 ng/mL [facility] FENTANYL IA Negative CUTOFF:2 .0 ng/mL [facility] BUPRENORPHINE IA Negative CUTOFF:5 .0 ng/mL [facility] TRAMADOL IA Negative CUTOFF:2 00 ng/mL [facility] PROPOXYPHENE IA Negative CUTOFF:3 00 ng/mL [facility] TAPENTADOL IA Negative CUTOFF:2 00 ng/mL [facility] NICOTINE METABOLITE Negative [facility] COTININE Not Detected ng/mL [facility] 12/02/2024 12:2 6 PM EDT 12/02/2024 Narrative [facility] - 12/06/2024 6:06 AM EDT Test(s) 043706-PFCNOTR BIOMARKERS IA; 151513-IABMBVPX IA; 505402- TAPENTADOL IA was developed and its performance characteristics determined by [facility]. It has not been cleared or approved by the Food and Drug Administration. Performed at: 01 - [facility] [address] [place] [id number] Special Education Classroom Aide: Bianca Chan [facility], Phone: [phone] us Ivan Barnesi DO LAB BLOOD ORDERABLES Final Re sult [facility] * Urine Culture Clean Catch Reflex (12/02/2024 12:26 PM EDT) Ur Cult 1 Comment [facility] Comment: Culture shows less than 10,000 colony forming units of bacteria per milliliter of urine. This colony count is not generally considered to be clinically significant. 12/02/2024 12:2 6 PM EDT 12/02/2024 Narrative [facility] - 12/06/2024 6:06 AM EDT Performed at: [address] [id number] Special Education Classroom Aide: French Chaudhari PhD, Phone: [phone] Ivan Fofana DO LAB URINE ORDERABLES Final Re sult Performing Organization Address [facility] de Phone Number [facility] * Ur Microscopic Reflex (12/02/2024 12:26 PM EDT) Pathologist [facility] WBC Ur None seen 0 - 5 /hpf [facility] RBC Ur None seen 0 - 2 /hpf [facility] Epithelial Cells (non renal) Ur 0-10 0 - 10 /hpf [facility] Casts Ur None seen None seen /lpf [facility] Bacteria Ur None seen None seen/Few [facility] 12/02/2024 12:2 6 PM EDT 12/02/2024 Narrative [facility] - 12/06/2024 6:06 AM EDT Performed at: [address] [id number] Special Education Classroom Aide: French Chaudhari PhD, Phone: [phone] us Ivan Fofana DO LAB URINE ORDERABLES Final Re sult Performing Organization Address [facility] Co de Phone Number [facility] * Rpr (dx) w/refl titer and confirmatory testing (12/02/2024 12:26 PM EDT) RPR Non Reactive Non Reactive [facility] Clindamycin Comment [facility] Comment: Syphilis: RPR with Reflex to RPR Titer and Treponemal Antibodies, Traditional Screening and Diagnosis Algorithm Treponemal RPR RPR, Qn Ab Final Interpretation -------- --------- Non N/A N/A No laboratory evidence Reactive of syphilis. Retest in 2-4 weeks if recent exposure is suspected. -------- --------- Reactive >/=1:1 Non Nontreponemal antibodies Reactive detected. Syphilis unlikely; biological false positive possible. Retest in 2-4 weeks if recent exposure is suspected. -------- --------- Reactive >/=1:1 Reactive Treponemal and nontreponemal antibodies detected. Consistent with past or current (potential early) syphilis. Blood Venous blood specimen / Unknown 12/02/2024 12:26 PM EDT 12/02/2024 Narrative [facility] - 12/06/2024 6:06 AM EDT Performed at: 02 - [facility] [id number] Special Education Classroom Aide: French Chaudhari PhD, Phone: [phone] us Ivan Fofana DO LAB BLOOD ORDERABLES Final Re sult [facility] * Hepatitis C antibody (12/02/2024 12:26 PM EDT) Pathologist [facility] Hep C Virus Ab Non Reactive Non Reactive [facility] Comment: HCV antibody alone does not differentiate between previously resolved infection and active infection. Equivocal and Reactive HCV antibody results should be followed up with an HCV RNA test to support the diagnosis of active HCV infection. Blood Venous blood specimen / Unknown 12/02/2024 12:26 PM EDT 12/02/2024 Narrative [facility] - 12/06/2024 6:06 AM EDT Performed at: [address] [place] [id number] Special Education Classroom Aide: French Chaudhari PhD, Phone: [phone] Ivan Foley Visci DO LAB BLOOD ORDERABLES Final Re sult Performing Organization Address [facility] de Phone Number [facility] * HIV-2 antigen (12/02/2024 12:26 PM EDT) Pathologist [facility] HIV Scr 4th Gen Non Reactive Non Reactive [facility] Comment: HIV-1/HIV-2 antibodies and HIV-1 p24 antigen were NOT detected. There is no laboratory evidence of HIV infection. HIV Negative Blood Venous blood specimen / Unknown 12/02/2024 12:26 PM EDT 12/02/2024 Narrative [facility] - 12/06/2024 6:06 AM EDT Performed at: [address] [place] [id number] Special Education Classroom Aide: French Chaudhari PhD, Phone: [phone] Ivan Foley Viscbenjamin DO LAB BLOOD ORDERABLES Final Re sult Performing Organization Address [facility] de Phone Number [facility] * Rubella antibody, IgG (12/02/2024 12:26 PM EDT) Rubella IgG Abs 9.35 Immune >0.99 index [facility] Comment: Non-immune <0.90 Equivocal 0.90 - 0.99 Immune >0.99 Blood Venous blood specimen / Unknown 12/02/2024 12:26 PM EDT 12/02/2024 Narrative [facility] - 12/06/2024 6:06 AM EDT Performed at: 02 - [facility] [address] [id number] Special Education Classroom Aide: French Chaudhari PhD, Phone: [phone] Ivan Alaina Brigido DO LAB BLOOD ORDERABLES Final Re sult Performing Organization Address [facility] de Phone Number [facility] * Hepatitis B surface antigen (12/02/2024 12:26 PM EDT) Pathologist [facility] Hep B Surf Ag Scr Negative Negative [facility] Blood Venous blood specimen / Unknown 12/02/2024 12:26 PM EDT 12/02/2024 Narrative [facility] - 12/06/2024 6:06 AM EDT Performed at: 02 - [facility] [id number] Special Education Classroom Aide: French Chaudhari PhD, Phone: [phone] Ivan Fofana DO LAB BLOOD ORDERABLES Final Re sult Performing Organization Address [facility] de Phone Number [facility] * (ABNORMAL) Urinalysis with microscopic (12/02/2024 12:26 PM EDT) [facility] Specific [place] Urine 1.015 1.005 - 1.030 [facility] pH Urine 6.0 5.0 - 7.5 [facility] Color Urine Yellow Yellow [facility] Appearance Urine Clear Clear [facility] WBC Esterase Urine Negative Negative [facility] Protein Urine Negative Negative/Tra ce [facility] Glucose Urine Negative Negative [facility] Ketones Urine Trace(A) Negative [facility] Occult Blood Urine Negative Negative [facility] Bilirubin Urine Negative Negative [facility] Urobilinogen,Se mi-Qn Urine 0.2 0.2 - 1.0 mg/dL [facility] Nitrite Urine Negative Negative [facility] Ur Microscopic Comment [facility] Comment:Microscopic follows if indicated. Micro Exam See below: [facility] Comment:Microscopic was hugo cated and was performed. Urine Urine specimen obtained by clean catch procedure / Unknown 12/02/2024 12:26 PM EDT 12/02/2024 Narrative [facility] - 12/06/2024 6:06 AM EDT Performed at: 02 - [facility] [address], [place], [place] [id number] Special Education Classroom Aide: French Chaudhari PhD, Phone: [phone] us Ivan Fofana DO LAB URINE ORDERABLES Final Re sult [facility] * CBC and differential (12/02/2024 12:26 PM EDT) Pathologist [facility] WBC 9.5 3.4 - 10.8 x10E3/uL [facility] RBC 4.66 3.77 - 5.28 x10E6/uL [facility] Hgb 14.1 11.1 - 15.9 g/dL [facility] Hct 43.7 34.0 - 46.6 % [facility] MCV 94 79 - 97 fL [facility] MCH 30.3 26.6 - 33.0 pg [facility] MCHC 32.3 31.5 - 35.7 g/dL [facility] RDW 13.0 11.7 - 15.4 % [facility] Platelets 266 150 - 450 x10E3/uL [facility] Neutrophils 59 Not Estab. % [facility] Lymphs 31 Not Estab. % [facility] Monocytes 8 Not Estab. % [facility] Eos 1 Not Estab. % [facility] Basos 0 Not Estab. % [facility] Neutrophils Abs 5.7 1.4 - 7.0 x10E3/uL [facility] Lymphs Abs 2.9 0.7 - 3.1 x10E3/uL [facility] MonocytesAbs 0.7 0.1 - 0.9 x10E3/uL [facility] Eos Abs 0.1 0.0 - 0.4 x10E3/uL [facility] Baso Abs 0.0 0.0 - 0.2 x10E3/uL [facility] Immature Granulocytes 1 Not Estab. % [facility] Immature Grans Abs 0.1 0.0 - 0.1 x10E3/uL [facility] Blood Venous blood specimen / Unknown 12/02/2024 12:26 PM EDT 12/02/2024 Narrative [facility] - 12/06/2024 6:06 AM EDT Performed at: [facility] [id number] Special Education Classroom Aide: French Chaudhari PhD, Phone: [phone] us Ivan Fofana DO LAB BLOOD ORDERABLES Final Re sult Performing Organization Address [facility] de Phone Number [facility] * Type and screen (12/02/2024 12:26 PM EDT) ABO Grouping B [facility] Rh Factor Positive [facility] Comment: Please note: Prior records for this patient's ABO / Rh type are not available for additional verification. Antibody Screen Negative Negative [facility] Blood Venous blood specimen / Unknown 12/02/2024 12:26 PM EDT 12/02/2024 Narrative [facility] - 12/06/2024 6:06 AM EDT Performed at: [facility] [id number] Special Education Classroom Aide: French Chaudhari PhD, Phone: [phone] us Ivan Fofana DO LAB BLOOD ORDERABLES Final Re sult Performing Organization Address [facility] Phone Number [facility] * Urine culture (12/02/2024 12:26 PM EDT) Urine Cult Rt Status Final report [facility] Urine Urine specimen obtained by clean catch procedure / Unknown 12/02/2024 12:26 PM EDT 12/02/2024 Comment:UR Narrative [facility] - 12/06/2024 6:06 AM EDT Performed at: [facility] [id number] Special Education Classroom Aide: French Chaudhari PhD, Phone: [phone] us Ivan Fofana DO LAB MICROBIOLOGY - GENERAL OR DERABLES Final Result Performing Organization Address [facility] de Phone Number [facility] * IGP,APTIMA HPV,AGE GDLN (11/07/2024 11:46 AM EDT) AGE GDLN AC TESTING Note . [facility] Comment: TESTS RESULT FLAG UNITS REF RANGE LAB Clinician Provided Cytology Information Source.............Cervix;Endocervix No. of containers..01 ThinPrep Vial Age Tonya FU Yolanda... FLAG LEGEND: L-Low Normal,H-High Normal,LL-Alert Low,HH-Alert High <-Panic Low,>-Panic High,A-Abnormal,AA-Critical Abnormal Performed at: 01 =G [facility] [address] Allison Miller MD, IGP, RFX APTIMA HPV ASCU Note . [facility] Comment: TESTS RESULT FLAG UNITS REF RANGE LAB DIAGNOSIS: 02 NEGATIVE FOR INTRAEPITHELIAL LESION OR MALIGNANCY. Specimen adequacy: 02 Satisfactory for evaluation. No endocervical component is identified. Performed by: 02 Magaly Jenkins Pediatric Cardiologist (ASCP) . 02 Note: Note 02 The Pap smear is a screening test designed to aid in the detection of premalignant and malignant conditions of the uterine cervix. It is not a diagnostic procedure and should not be used as the sole means of detecting cervical cancer. Both false-positive and false-negative reports do occur. Test Methodology: Note 02 This liquid based ThinPrep(R) pap test was screened with the use of an image guided system. . 02 The HPV DNA reflex criteria were not met with this specimen result therefore, no HPV testing was performed. FLAG LEGEND: L-Low Normal,H-High Normal,LL-Alert Low,HH-Alert High <-Panic Low,>-Panic High,A-Abnormal,AA-Critical Abnormal Performed at: [address] [address] Allison Miller MD, Performed at: = - [facility] [address] [id number] Special Education Classroom Aide: Allison Miller MD, Phone: [phone] Performed at: [facility] [address] [id number] Special Education Classroom Aide: Allison Miller MD, Phone: [phone] 11/07/2024 11:4 6 AM EDT 11/07/2024 9:36 PM EDT Narrative [facility] - 11/10/2024 1:12 PM EDT BRUSH-SPATULA CERVIX ENDOCERVIX us Ira ELMORE LAB BLOOD ORDERABLES Final Resul t [facility] * Pap Smear (11/07/2024 12:00 AM EDT) Swab Cervical swab / Unknown Thomas Nurse [facility] LAB CYTOLOGY ORDERABLES Final Result EXTERNAL LAB from Last 3 Months Additional Health Concerns Active Problems Noted Date Diagnosed Date OB Reminders 12/02/2024 Insurance MEDICAID [place] Care Teams Striping Machine Operator Relationship Specialty Start Date End Date Karly Baca PCP - [facility] 11/23/23
--- OUTSIDE RECORDS SUMMARY | 2025-01-19 09:53 | XMS_ITS | Encounter Summary ---
Author Organization [facility] Address [address] [place] [address] Care Team Providers Care Chemistry Lab Instructor Name Role Phone Karly Baca Unavailable Unavailable Encounter Details Date Type Department Care Team (Late st Contact Info) Description 11/17/2024 Orders Only [facility] [address] [facility] [place] [address] Katie Nguyen LPN 102 [facility] Patricia SMITH [facility]11 Social History Tobacco Use Types Packs/Day Years Used Date Smoking Tobacco: Never Assessed Comments No Sex and Gender Information Value Date Recorded Sex Assigned at Not on file Legal Sex Female 12:17 PM EDT Gender Identity Not on file Sexual Orientation Not on file documented as of this encounter Plan of Treatment Upcoming Encounters Date Type Department Care Team (Late st Contact Info) Description 02/20/2025 11:30 AM EDT Routine [facility] [address] [facility] [place] [address] Carmita Will NP [address] [facility] [place] [address] documented as of this encounter Procedures Procedure Name Priority Date/Time Associated Diagnosis Comments PAP SMEAR Routine 11/07/2024 12:00 AM EDT documented in this encounter Results * Pap Smear (11/07/2024 12:00 AM EDT) Swab Cervical swab / Unknown us Thomas Nurse [facility] Ob LAB CYTOLOGY ORDERABLES Final Result EXTERNAL LAB documented in this encounter Visit Diagnoses Not on filedocumented in this encounter Care Teams Chemistry Lab Instructor Relationship Specialty Start Date End Date Karly Baca PCP - [facility] ATHLETIC SCOUT 11/23/23 documented as of this encounter
--- OUTSIDE RECORDS SUMMARY | 2025-01-19 09:53 | XMS_ITS | Encounter Summary ---
Author Organization [facility] Address [address] [place] [address] Care Team Providers Care Lab Animal Technician Name Role Phone Mega Davenport MD Unavailable [phone] Karly Baca Unavailable Unavailable Encounter Details Date Type Department Care Team (Late Contact Info) Description 12/05/2022 Abstract [facility] [address] [facility] [place] [address] Ira Jensen PA [address] [facility] [address] [place], [facility]11 Social History Tobacco Use Types Packs/Day Years [...] Encounters Date Type Department Care Team (Late Contact Info) Description 02/20/2025 11:30 AM EDT Routine [facility] [address] [facility] [place] [address] Carmita Will, TOY MAKER [address] [facility] [place] [address] documented as of this encounter Visit Diagnoses Not on filedocumented in this encounter Care Teams Lab Animal Technician Relationship Specialty Start Date End Date Mega Davenport MD [address] [place] [address] PCP - [facility] [place] SCIENTIFIC INFORMATICS PROJECT LEADER 08/24/23 11/22/23 Karly Baca PCP - [facility] SCIENTIFIC INFORMATICS PROJECT LEADER 11/23/23 documented as of this encounter
--- OUTSIDE RECORDS SUMMARY | 2025-01-19 09:54 | XMS_ITS | Clinical Summary ---
Author Organization [employer] [facility] Address [id number] [address] [place] [address] Care Team Providers Care Machine Brusher Name Role Phone Pcp, Not In System [...] file Medical Devices Not on file Insurance [facility] MEDICAID Care Teams Machine Brusher Relationship Specialty Start Date End Date Pcp, Not In System [place] [id number] PCP - General Family Medicine 11/12/17
--- OUTSIDE RECORDS SUMMARY | 2025-01-19 09:54 | XMS_ITS | Patient Health Record ---
Author Organization [facility] Address [address] [place] [address] Care Team Providers Care Kitchen Food Server Name Role Phone Maria R Glynn Primary Care Provider Christian Resendiz Unavailable [phone] Dr. Burt Jarrett Unavailable [phone] Ignacia Ellington Unavailable Unavailable Veronique Wilson Unavailable [phone] Cinda Cordon Unavailable Jeff Beltre Unavailable [phone] Maria R Romero Unavailable [phone] Allergies No Known Allergies Results Component Value Reference Range Notes HAILEE w/Reflex if POS Reviewed date:03/27/2024 03:13:55 PM Interpretation: Performing Lab: Notes/Report: Original Ordering Provider: [place] [address] 272 [facility] Laboratory NUCLEAR AB Negative Negative Performed at: [facility] [id number] PhD Fara Braswell Performing Lab see note [facility] - [facility] Laboratory unless otherwise specified [address] [place] [address] [facility] Reviewed date:03/27/2024 03:14:46 PM Interpretation: Performing Lab: Notes/Report: Original Ordering Provider: [place] [address] [address] [facility] GLUCOSE 89 55-199 mg/dL UREA NITROGEN [...] ALBUMIN/GLOBULIN 1.4 1.1-2.2 Performing Lab see note [facility] Laboratory unless otherwise specified [address] [place] [address] Cortisol Reviewed date:03/27/2024 03:14:20 PM Interpretation: Performing Lab: Notes/Report: [facility] [address] [place] [address] Original Ordering Provider: GOPI OCHOA CORTISOL 15.2 6.2-19.4 microgram/dL Please Note: The reference interval and flagging for this test is for an AM collection. If this is a PM collection please use: Cortisol PM: 2.3-11.9 Performed at: [address] [id number] PhD Fara Braswell Performing Lab see note [facility] Laboratory unless otherwise specified [address] [place] [address] FSH and LH Reviewed date:03/27/2024 03:14:29 PM Interpretation: Performing Lab: Notes/Report: [facility] [address] [place] [address] Original Ordering Provider: GOPI OCHOA FOLLITROPIN 7.7 Adult Female Range Follicular phase 3.5 - 12.5 Ovulation phase 4.7 - 21.5 Luteal phase 1.7 - 7.7 Postmenopausal 25.8 - 134.8 Performed at: [address] [id number] PhD Fara DE LUNA 8.6 Adult Female Range Follicular phase 2.4 - 12.6 Ovulation phase 14.0 - 95.6 Luteal phase 1.0 - 11.4 Postmenopausal 7.7 - 58.5 Performing Lab see note [facility] Laboratory unless otherwise specified [address] [place] [address] HgbA1c Reviewed date:03/27/2024 03:15:34 PM Interpretation: Performing Lab: Notes/Report: [facility] [address] [place] [address] Original Ordering Provider: GOPI OCHOA HEMOGLOBIN A1C/HEMOGLOBIN.TOTAL 5.1 <=5.9 % Performing Lab see note [facility] Laboratory unless otherwise specified [address] [place] [address] Insulin Lvl Reviewed date:03/27/2024 03:15:07 PM Interpretation: Performing Lab: Notes/Report: [facility] [address] [place] [address] Original Ordering Provider: GOPI OCHOA INSULIN 9.4 2.6-24.9 mcIU/mL Performed at: [address] [id number] PhD Fara Braswell Performing Lab see note [facility] Laboratory unless otherwise specified [address] [place] [address] Lipid Panel Reviewed date:03/27/2024 03:14:37 PM Interpretation: Performing Lab: Notes/Report: [facility] [address] [place] [address] Original Ordering Provider: GOPI OCHOA CHOLESTEROL 153 120-200 mg/dL CHOLESTEROL.IN HDL 45 '>= 60 LOW RISK' '<= 40 HIGH RISK' CHOLESTEROL.IN LDL 102 <=129 mg/dL TRIGLYCERIDE 129 <=149 mg/dL CHOLESTEROL.IN VLDL 26 7-40 mg/dL Performing Lab see note [facility] Laboratory unless otherwise specified [address] [address] RF Quant Reviewed date:03/27/2024 03:15:26 PM Interpretation: Performing Lab: Notes/Report: [facility] [address] [place] [address] Original Ordering Provider: GOPI OCHOA RHEUMATOID FACTOR <10.0 <14.0 International_Unit/mL Performed at: [address] [id number] PhD Fara Braswell Performing Lab see note [facility] Laboratory unless otherwise specified [address] [address] T3 Total Reviewed date:03/27/2024 03:15:17 PM Interpretation: Performing Lab: Notes/Report: [facility] [address] [place] [address] Original Ordering Provider: GOPI OCHOA TRIIODOTHYRONINE 131 71-180 ng/dL Performed at: [address] [id number] PhD Fara Braswell Performing Lab see note [facility] - [facility] Laboratory unless otherwise specified [address] [address] T4 & TSH Reviewed date:03/27/2024 03:17:20 PM Interpretation: Performing Lab: Notes/Report: Original Ordering Provider: [place] [address] [address] [facility] THYROXINE 9.5 4.6-9.1 microgram/dL THYROTROPIN 2.00 0.34-5.60 mcIU/mL Performing Lab see note [facility] unless otherwise specified [address] [address] eGFR Reviewed date:03/27/2024 03:14:04 PM Interpretation: Performing Lab: Notes/Report: [facility] [address] [id number] Original Ordering Provider: GOPI OCHOA eGFR 124 >=59 mL/min/1.73 m2 Performing Lab see note [facility] - [facility] Laboratory unless otherwise specified [address] [place] [address] Reason For Referral Reason 03/30 attempted to r each pt. lvmsg requesting return call. referring for talk therapy with Maria R Romero. Diagnosis 1 Encounter for screen ing examination for mental health and behavioral disorders (Z13.30) Referral Organization [facility] Referring Provider First Name Maria R Referring Provider Last Name Renard Referring Provider Speciality Family Pra ctice Referred Organization [facility] Referred Provider Maria R Romero Referred Address [address] ,[place], [place],[address], Referred Provider Specialty Talk Ther apy Referral Priority Routine Medications Medication SIG (Take, Route, Fr equency, Duration) Notes Start Date End Date Status traZODone HCl 100 MG 1 tablet at bedtime as needed Orally Once a day; Duration: 30 days Active ALPRAZolam 0.25 MG 1/2 to 1 tablet as n eeded Orally Twice a day; Duration: 15 days 09/09/2024 Active Vyvanse 40 MG 1 capsule in the mor leticia Orally Once a day; Duration: 30 days 11/09/2024 Ac tive Abilify 5 MG 1 tablet Orally Once a day; Duration: 30 days Active Social History Tobacco Use: [...] school 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 Stress is when someone feels tense, nervous, anxious, or cant sleep at night because their mind is troubled A little bit In the past year have you sp ent more than 2 nights in a row in a mcfp, jail, alf center, or juvenile correctional facility? No Are [...] Findings: Tobacco user e-cigarette Section Notes: VAPES. Nicotine free. Vapes Vapes Vapes VAPES. VAPES. PT vapes Vapes Vapes Vapes Vapes Problems Problem Type SNOMED Code ICD Code Onset Dates Problem Status W/U Status Risk Notes Problem Tobacco user (786581339) Nicotine dependence, unspecified, uncomplicated (F17.200) Active confirmed Problem Insomnia (119559618) Other insomnia (G47.09) Active confirmed Problem Morbid obesity (708242411) Morbid obesity (E66.01) Active confirmed Problem Chronic pain (29031489) Other chronic pain (G89.29) Active confirmed Problem Chronic fatigue syndrome (32861571) Chronic fatigue (R53.82) Active confirmed Problem Posttraumatic stress disorder (82262312) PTSD (post-traumatic stress disorder) (F43.10) Active confirmed Problem Panic disorder (226543507) Panic attacks (F41.0) Active confirmed Problem Acute stress disorder (61468129) Acute stress disorder (F43.0) Active confirmed Problem Carpal tunnel syndrome (93334491) Right carpal tunnel syndrome (G56.01) Active confirmed Problem Attention deficit hyperactivity disorder, 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), 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 confirmed Problem Generalized anxiety disorder (07446224) PILO (generalized anxiety disorder) (F41.1) Active confirmed Vital Signs Heart Rate 89 /min 10/31/2024 Temperature 97.8 degrees Fahrenheit 10/31/2024 Respiratory Rate 20 /min 07/21/2024 Blood pressure diastolic 54 mm Hg 10/31/2024 Oximetry 98 % 10/31/2024 Height 63 in 10/31/2024 Blood pressure systolic 105 mm Hg 10/31/2024 Weight 305.4 lbs 10/31/2024 BMI 54.09 kg/m2 10/31/2024 Encounters Encounter Location Date Provider Diagnosis [facility] [address] [place] [address] 03/23/2024 Maria R Glynn [facility] [address] [place] [address] 03/27/2024 Maria R Glynn [facility] [address] [place] [address] 04/12/2024 Maria R Glynn Morbid obesity E66.01 and PILO (generalized anxiety disorder) F41.1 [facility] [address] [facility] [address] [facility] [place] [address] 04/25/2024 Maria R Glynn [facility] [address] [place] [address] 07/05/2024 Maria R Glynn Morbid obesity E66.01 and PILO (generalized anxiety disorder) F41.1 [address] [place] [address] 07/13/2024 Maria R Glynn [address] [place] [address] 07/15/2024 Maria R Glynn [address] [place] [address] 10/07/2024 Maria R Glynn PILO (generalized anxiety disorder) F41.1 [facility] [address] [place] [address] 11/09/2024 Veronique Melaniemichael [facility] [address] [place] [address] 01/12/2025 Maria R Nick [address] [place] [address] 03/22/2024 Maria R Glynn Chronic fatigue R53.82 ; PILO (generalized anxiety disorder) F41.1 ; Nicotine dependence, unspecified, uncomplicated F17.200 ; Pain in right hip M25.551 ; Pain in right knee M25.561 ; Pain in left knee M25.562 ; Other chronic pain G89.29 ; Pain in left hip M25.552 and PTSD (post-traumatic stress disorder) F43.[address] [place] [address] 04/12/2024 Maria R Glynn PILO (generalized anxiety disorder) F41.1 ; PTSD (post-traumatic stress disorder) F43.10 and Morbid obesity E66.[address] [place] [address] 09/09/2024 Maria R Glynn PILO (generalized anxiety disorder) F41.1 ; Acute stress disorder F43.0 ; PTSD (post-traumatic stress disorder) F43.10 and Morbid obesity E66.01 [address] [address] [place] [address] 07/21/2024 Jeff Beltre Nexplanon removal Z30.46 [facility] [address] [place] [address] 04/29/2024 Maria R Romero PTSD (post-traumatic stress disorder) F43.10 [facility] [address] [place] [address] 10/03/2024 Maria R Romero PTSD (post-traumatic stress disorder) F43.10 [facility] [address] [place] [address] 10/12/2024 Burt Montoyazk Encounter for dental examination and cleaning with abnormal findings Z01.21 ; Other dental procedure status Z98.818 ; Disturbances in tooth eruption K00.6 ; Acute gingivitis, plaque induced K05.00 and Dental caries on pit and fissure surface penetrating into dentin K02.52 [facility] [address] [address] 10/31/2024 Veronique Wilson PILO (generalized anxiety disorder) F41.1 ; Panic attacks F41.0 ; Acute stress disorder F43.0 ; Mild depression F32.A ; Moderate binge-eating disorder F50.811 and ADHD (attention deficit hyperactivity disorder), inattentive type F90.0 Assessments Encounter Date Diagnosis (ICD Code) Assessment Notes Treatment Notes Treatment Clinical Notes Section Notes 03/22/2024 Chronic fatigue (ICD-10 - R53.82) Today [...] patient crisis plan. Provided crisis hotline number. [facility] has good support system. Made aware to [...] Nicotine dependence, unspecified, uncomplicated (ICD-10 - F17.200) 03/22/2024 Pain in right hip (ICD-10 - [...] can determine next step in treatment plan 03/22/2024 Pain in left knee (ICD-10 - [...] FOllow up in 1 month as discussed 03/22/2024 Other Body Mass Index : Care [...] Provider Name:Burt Jarrett, 0 01/27/2025 11:00:00 AM, [place], [place], [address], Provider Name:Burt Jarrett, 0 02/02/2025 08:00:00 AM, [address], [place], [address], Provider Name:Kelly Kg , 06/07/2025 08:00:00 AM, [address], [place], [address], Insurance Providers Payer Name Payer Address Payer Phone Subscriber Number Group Number Insured Name Patient Relationship to Insured Coverage Start Date Coverage End Date [facility] [address] [place] [address] [id number] SAROJ MEMBRENO Self - patient is the insured 5 [facility] [address] [place] [address] [id number] SAROJ MEMBRENO Self - patient is the insured 5 [employer] [place] Medicaid [address] [place] [address] [id number] SAROJ MEMBRENO Self - patient is the insured 3 4 [facility] [address] [place] [address] [phone] [id number] SAROJ MEMBRENO Self - patient is the insured 3 4 [facility] [address] [place] [address] [id number] SAROJ MEMBRENO Self - patient is the insured 4 4 [facility] [address] [place] [address] [phone] [id number] SAROJ MEMBRENO Self - patient is the insured 4 4 [employer] [place] Medicaid [address] [place] [address] [id number] SAROJ MEMBRENO Self - patient is the insured 5 ap [facility] [address] [place] [address] [phone] [id number] SAROJ MEMBRENO Self - patient is the insured 5 [employer] [address] [address] [place] [address] [id number] SAROJ MEMBRENO Self - patient is the insured 1 [facility] [employer] [place] Medicaid [address] [address] [place] [address] [id number] SAROJ MEMBRENO Self - patient is the insured 5 [facility] [address] [place] [address] [id number] SAROJ MEMBRENO Self - patient is the insured 5 Medical (General) History Medical History History ICD Code ANXIETY DEPRESSION BACK PAIN ADHD Surgical History Surgery Date(Month/Year) none Hospitalization History Reason Date(Month/Year) none
--- OUTSIDE RECORDS SUMMARY | 2025-01-19 09:54 | XMS_ITS | Clinical Summary ---
Author Organization [facility] Address [address] [place] [address], [address] [place] [address] Care Team Providers Care Merchandising Specialist Name Role Phone Unavailable Primary Care Provider Unavailabl e Allergies No known active allergies Medications amphetamine-dext roamphetamine (ADDERALL) 30 MG tablet Take 30 mg by mouth daily. Active ibuprofen (ADVIL;MOTRIN) 800 MG tablet Take 1 tablet by mouth every 8 hours as needed for Pain. 30 tablet 0 01/24/2014 Active Social History Tobacco Use Types Packs/Day Years Used Date Smoking Tobacco: Never Alcohol Use Standard Drinks/Week Comments No 0 (1 standard drink = 0.6 oz pur e alcohol) Comments No Sex and Gender Information Value Date Recorded Sex Assigned at Not on file Legal Sex Female 7:37 PM EST Gender Identity Not on file Sexual Orientation Not on file Last Filed Vital Signs Vital Sign Reading Time Taken Comments Blood Pressure 107/75 10/18/2014 1:26 PM EDT Pulse 82 10/18/2014 1:26 PM EDT Temperature 36.7 C (98.1 F) 10/18/2014 1:26 PM EDT Respiratory Rate 18 10/18/2014 1:26 PM EDT Oxygen Saturation 97% 10/18/2014 1:26 PM EDT Inhaled Oxygen Concentration - - Weight 85.9 kg (189 lb 6 oz) 10/18/2014 1:26 PM EDT Height - - Body Mass Index - - Plan of Treatment Not on file
--- OUTSIDE RECORDS SUMMARY | 2025-01-19 09:54 | XMS_ITS | CCD ---
Author Organization [facility] Care Team Providers Care Senior Mechanical Engineer Name Role Phone NaifThiagoMaria R Unavailable Radhika Enrique Unavailable NON STAFF Primary Care Provider UnavailZAYRA Siddiqui- Michelle Hardwick Emergency Provider FRANCISCO J Enrique Attending Provider MARIA R DISLA Primary Care Unavailable DR GUILHERME WALTON Admitting Unavailable ANTON, DR GUILHERME Blackburn Attending Unavailable CAMILA ., IRA Consulting Unavailable NAIF, MARIA R Primary Care Unavailable MONCHO, WAQAR Admitting Unavailable MONCHO, WAQAR Attending Unavailable NAIF, MARIA R Primary Care Unavailable MONCHO, WAQAR Admitting Unavailable MONCHO, WAQAR Attending Unavailable GLO BRANDON Consulting Unavailable MONCHO, WAQAR Consulting Unavailable NAIF, MARIA R Primary Care Unavailable MONCHO, WAQAR Admitting Unavailable MONCHOSARWATID Attending Unavailable MONCHO, WAQAR Consulting Unavailable NAIF, MARIA R Primary Care Unavailable PAY ., DR PEARSON Admitting Unavailable PAY ., DR PEARSON Attending Unavailable PAY ., DR PEARSON Consulting Unavailable Naifrubén NGUYỄN Maria R Unavailable [phone] SASHA XIE Attending Unavailable NEO, ALLIE Referring Unavailable NEO, ALLIE Referring Unavailable SHELLY PARSONS Attending Unavailable MALONE, TOMS Referring Unavailable NETTA DILLARD Attending Unavailable NEO, ALLIE Referring Unavailable NEO ALLIE Attending Unavailable MALONE, TOMS Attending Unavailable NEO, ALLIE Referring Unavailable NON STAFF Primary Care Provider UnavailISRAEL Torres Attending Provider [phone] ISRAEL Christie Attending Provider ISRAEL Alas Attending Provider [phone] Glo Alas Attending Unavailable Glo Alas Admitting Unavailable NON STAFF Primary Care Unavailable Manjula Nevarez Admitting Unavailable NON STAFF Primary Care Unavailable Manjula Nevarez Attending Unavailable MARIA R DISLA Attending Unavailable MARIA R DISLA Admitting Unavailable MARZENA MARTINEZ Attending Unavailable MARZENA MARTINEZ Admitting Unavailable MARIA R DISLA Attending Unavailable MARIA R DISLA Admitting Unavailable Phuong Karly Unavailable Unavailable IRA JENSEN Attending Unavailable WESLEY BROWNING Attending Unavailable Medications Current Medications Medication Drug Class(es) Dates Sig (Normalized) Sig (Original) [id number] 200 actuat albuterol 0.09 mg/actuat metered dose [...] tablet (20 sources) Atypical Antipsychotic Start: 02-26-2021 End: 12-19-2024 take 1 tablet by mouth every twenty-four hours ARIPiprazole 5 MG 1 tablet Orally Once a day for 30 days Feb, Active Start: 02-26-2021 take 1 tablet by rhona th every twenty-four hours ARIPiprazole 2 MG 1 tablet Orally Once a day for 30 days Feb, Active Comment on above: Take 1 tablet by rhona th once daily. clindamycin 10 mg/ml topical solution (12 sources) Lincosamide Antibacterial Start: 023 End: 025 clindamycin (Cleocin T) 1 % external solution APPLY TO AFFECTED AREAS ON GROIN ONCE DAILY AFTER SHOWER. 10/27/2022 11/07/2024 Discontinued (Therapy completed) Comment on above: Apply 1 Application to [...] a day for 30 day(s) Nov, Active etonogestrel 68 mg drug implant (20 sources) Progestin Start: 11-17-2022 End: 11-07-2024 etonogestrel-elut ing 68 mg contraceptive implant Indications: Encounter for removal and reinsertion of Nexplanon 1 each by Implant route 1 (one) time for 1 dose. 1 each 11/17/2022 11/07/2024 Discontinued (Therapy completed) Start: 11-17-2022 etonogestrel ( NEXPLANON) subdermal implant 68 mg 1 Each by SUBDERMAL route. 11/17/2022 Active Nexplanon Active Comment on above: 1 Each by SUBDERMAL route. fluconazole 150 mg oral tablet (1 source) Azole Antifungal Start: 02-02-2024 Fluconazole Active 150 MG PO Q3D 2 0 February 02, 2024 12:00am september repeat x 1 in 3 days if [...] oral capsule (2 sources) Nitrofuran Antibacterial Start: 02-13-2023 take 1 capsule by mouth every twelve hours Macrobid 100 MG 1 cap(s) Orally 2 times a day for 5 day(s) Jun, Active phenazopyridine hydrochloride 200 mg oral tablet (2 sources) Start: 07-07-2022 take 1 tablet by mouth every eight hours Pyridium 200 MG 1 tablet after meals Orally Three times a day for 2 day(s) Jun, Active Vit-Fe Fumarate-FA ( Vitamins) 28-0.8 MG tablet (4 sources) Start: 12-02-2024 End: 12-02-2025 take 1 tablet by mouth once daily Vit-Fe Fumarate-FA ( Vitamins) 28-0.8 MG tablet Indications: Encounter for supervision of normal first in first trimester ([facility]) Take 1 tablet by mouth Daily 30 tablet 11 12/02/2024 12/02/2025 Active traZODone hydrochloride 50 mg oral tablet (12 sources) Serotonin Reuptake Inhibitor Start: 09-16-2023 take 50 mg by mouth once daily Trazodone Active 50 MG PO Daily September 16, 2023 12:00am End: 12-19-2024 take 1 tablet by mouth at bedtime traZODone (Desyrel) 100 MG tablet Take 100 mg by mouth at bedtime 12/19/2024 Discontinued (Therapy completed) 24 hr venlafaxine 37.5 mg extended release oral capsule (20 sources) Serotonin and Norepinephrine Reuptake Inhibitor Start: 02-28-2020 End: 12-19-2024 take 1 capsule by mouth every twenty-four hours Effexor XR 37.5 MG 1 capsule with food Orally Once a day for 30 days Feb, Active Start: 11-28-2019 take 1 capsule by [facility] every twenty-four hours Effexor XR 75 MG 1 capsule with food Orally Once a day for 30 days patient lost presciption Nov, Active Completed/Discontinued Medications Medication Drug Class(es) Dates Sig (Normalized) Sig (Original) benzoyl peroxide 100 mg/ml medicated liquid soap (16 sources) Start: 09-22-2022 End: 12-19-2024 BENZAC AC WASH 10 % external wash WASH, LATHER AND RINSE AFFECTED AREAS IN THE GROIN AREA DAILY 09/22/2022 12/19/2024 Discontinued (Therapy completed) Comment on above: Apply 1 Application to affected area once daily. cefdinir 300 mg oral capsule (6 sources) Cephalosporin Antibacterial Start: 09-16-2023 End: 11-13-2023 take 300 mg by mouth twice daily Cefdinir Discontinued 300 MG PO Twice daily 14 7 September 16, 2023 12:00am November 13, 2023 10:35am doxycycline hyclate 100 mg oral capsule (16 sources) Tetracycline-class Drug Start: 09-22-2022 End: 12-19-2024 take 1 capsule by mouth once daily at mealtime doxycycline (Vibramycin) 100 MG capsule TAKE 1 CAPSULE BY MOUTH DAILY WITH FOOD AND WATER 09/22/2022 12/19/2024 Discontinued (Therapy completed) Comment on above: Take 1 capsule by mo ut once daily. ketorolac tromethamine 10 mg oral tablet (3 sources) Nonsteroidal Anti-inflammatory Drug, Cyclooxygenase Inhibitor Start: 01-20-2024 End: 12-19-2024 take 1 tablet by mouth three times daily as needed ketorolac (Toradol) 10 MG tablet Take 1 tablet by mouth 3 (three) times a day as needed 01/20/2024 12/19/2024 Discontinued (Therapy completed) 3 ml liraglutide 6 mg/ml pen injector (7 sources) GLP-1 Receptor Agonist End: 12-19-2024 Victoza 18 MG/3ML injection 1 (one) time each day at the same time. 12/19/2024 Discontinued (Therapy completed) lisdexamfetamine dimesylate 40 mg oral capsule (3 sources) Central Nervous System Stimulant Start: 11-09-2024 End: 12-19-2024 take 1 capsule by mouth once daily Vyvanse 40 MG capsule Take 40 mg by mouth 1 (one) time each day at the same time 11/09/2024 12/19/2024 Discontinued (Therapy completed) minocycline 100 mg oral capsule (6 sources) Tetracycline-class Drug Start: 09-16-2023 End: 01-20-2024 take 1 mg by mouth once daily Minocycline Discontinued MG PO Daily September 16, 2023 12:00am January 20, 2024 12:02pm spironolactone 50 mg oral tablet (16 sources) Aldosterone Antagonist End: 12-19-2024 spironolactone (Aldactone) 50 MG tablet 12/19/2024 Discontinued (Therapy completed) Comment on above: Take 1 tablet by rhona once daily. valACYclovir 1000 mg oral tablet (5 sources) [...] conditions (1 source) Frequency of micturition Episodic Immunizations and screening for infectious disease (4 sources) Contact with and (suspected) exposure to other viral communicable diseases; Translations: [Encounter for screening for other viral diseases] Onset: 03-30-2021 Resolved: 06-21-2021 Episodic Inflammatory diseases of female pelvic organs [...] damage to nail, initial encounter Episodic Other complications of (2 sources) Maternal obesity complicating , childbirth and the puerperium, antepartum; Translations: [Obesity complicating , first trimester] 12-19-2024 Chronic Other complications of (2 sources) Herpes in ; Translations: [Other viral diseases complicating , first trimester] 12-19-2024 Episodic Other complications of (2 sources) Vomiting of , unspecified; Translations: [Unspecified vomiting of , unspecified as to episode of care or not applicable] 12-19-2024 Episodic Other connective tissue disease (3 sources) [...] Translations: [Body mass index (BMI) 40.0-44.9, adult (HCC)] Onset: 01-30-2023 Chronic Other nutritional; endocrine; and metabolic disorders (2 sources) Morbid (severe) obesity due to excess calories; Translations: [Class 3 severe obesity with serious comorbidity and body mass index (BMI) of 40.0 to 44.9 in adult, unspecified obesity type (HCC)] Onset: 01-30-2023 Chronic Other and delivery including normal (3 sources) Normal ; Translations: [Encounter for supervision of normal first , first trimester] 12-02-2024 Episodic Other screening for suspected conditions (not mental disorders or infectious disease) (2 sources) Cancer cervix screening status; Translations: [Encounter for screening for malignant neoplasm of cervix] 12-19-2024 Episodic Other skin disorders (1 source) Follicular disorder, unspecified; Translations: [FOLLICULAR DISORDER UNSPECIFIED] Onset: 09-24-2022 Episodic Other upper respiratory infections (4 sources) Acute pharyngitis; Translations: [Acute pharyngitis, unspecified] 01-20-2024 Episodic Otitis media and related conditions (3 sources) Otitis media, unspecified, right ear; Translations: [Unspecified otitis media] 09-16-2023 Episodic Residual codes; unclassified (13 sources) Insomnia; Translations: [Insomnia, unspecified] 09-16-2023 Episodic Residual codes; unclassified (11 sources) Patient encounter status; Translations: [Procedure and treatment not carried out due to patient leaving prior to being seen by health care provider] 07-04-2022 Episodic Residual codes; unclassified (1 source) Nicotine-filled electronic cigarette user; Translations: [Tobacco use] 01-19-2023 Episodic Residual codes; unclassified (1 source) Tobacco use; Translations: [Vapes nicotine containing substance] Onset: 01-19-2023 Episodic Residual codes; unclassified (2 sources) Gestation period, 13 weeks; Translations: [13 weeks gestation of ] 12-16-2024 Episodic Skin and subcutaneous tissue infections (4 [...] Translations: [Systemic lupus erythematosus, unspecified] 09-16-2023 Chronic Unclassified (4 sources) OB Reminders Onset: 12-02-2024 12-02-2024 Urinary tract infections (1 source) Urinary tract infection, site not specified Episodic Past or Other Problems Problem Classification Problem Date Documented Date Episodic/Chronic Open wounds of head; neck; and trunk (1 source) Puncture wound without foreign body of lip, initial encounter; Translations: [Puncture wound without foreign body of lip, initial encounter S01.531A] Onset: 03-07-2021 Resolved: 03-07-2021 Episodic Other aftercare (1 source) 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; Translations: [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] Onset: 01-15-2022 Episodic Other inflammatory condition of skin (4 sources) Pruritus, unspecified; Translations: [PRURITUS UNSPECIFIED] Onset: 06-06-2022 Episodic Other skin disorders (4 sources) Follicular [...] Test Name Value Interpretation Reference Range Facility Laboratory - Specimen inform ationon 12-19-2024 Specimen type Nom (Spec) vaginal [facility] No Panel Informationon 12-19 GONORRHOEAE DNA(PCR) Negative Negatvie [facility] Interpretation and review of laboratory results Normal Counts include 234 beds at the [facility] Glucose, UA Negative Negative - 1999(110) ++++ mg/dL [facility] Interpretation and review of laboratory results Normal [facility] Protein, UA Negative Negative - 1999(20) ++++ mg/dL Counts include 234 beds at the [facility] IGP,APTIMA HPV,AGE GDLNon AGE GDLN ACOG TESTING Note . [facility] Comment on above: TESTS RESULT FLAG UN ITS REF RANGE LAB Clinician Provided Cytology Information Source.............Cervix;Endocervix No. of containers..01 ThinPrep Vial Age Algo ACOG Yolanda... -23 06 FLAG LEGEND: L-Low Normal,H-High Normal,LL-Alert Low,HH-Alert High <-Panic Low,>-Panic High,A-Abnormal,AA-Critical Abnormal Performed at: 01 =G [facility] [address] [place] [address] Allison Miller MD, IGP, RFX APTIMA HPV ASCU Note . [facility] Comment on above: TESTS RESULT FLAG UN ITS REF RANGE LAB DIAGNOSIS: 02 NEGATIVE FOR INTRAEPITHELIAL LESION OR MALIGNANCY. Specimen adequacy: 02 Satisfactory for evaluation. No endocervical component is identified. Performed by: 02 Magaly Jenkins Sap Bw Bi Developer (ASCP) . 02 Note: Note 02 The [...] <-Panic Low,>-Panic High,A-Abnormal,AA-Critical Abnormal Performed at: [address] [phone] Allison Miller MD, Performed at: =G - [facility] [id number] Solutions Sales Executive: Allison Miller MD, Phone: [phone] Performed at: - [address] [id number] Solutions Sales Executive: Allison Miller MD, Phone: [phone] BRUSH-SPATULA CERVIX ENDOCERVIX [facility] HAILEE w/Reflex if POSon 2023 Nuclear Ab Ql (S) Negative Invalid Interpretation Code Negative [facility] Comment on above: Result Comment: Perf ormed at: [address] [id number] PhD Fara Braswell Performed By: #### 1 [id number] #### [facility] [address] [place] [address] Cortisolon 03-24-2024 Cortisol [Mass/Vol] 15.2 microgram/dL Invalid Interpretation Code 6.2-19.4 [facility] Comment on above: Result Comment: Christy luis Note: The reference interval and flagging for this test is for an AM collection. If this is a PM collection please use: Cortisol PM: 2.3-11.9 Performed at: [address] [id number] PhD Fara Braswell Performed By: #### 2 [id number] #### [facility] [address] [place] [address] FSH and LHon 03-24-2024 Follitropin Qn 7.7 m[IU]/mL Invalid Interpretation Code [facility] Comment on above: Result Comment: Adul t Female Range Follicular phase 3.5 - 12.5 Ovulation phase 4.7 - 21.5 Luteal phase 1.7 - 7.7 Postmenopausal 25.8 - 134.8 Performed at: [address] [id number] PhD Fara Braswell Performed By: #### 1 [id number] #### [facility] [address] [place] [address] Lutropin Qn 8.6 m[IU]/mL Invalid Interpretation Code [facility] Comment on above: Result Comment: Adul t Female Range Follicular phase 2.4 - 12.6 Ovulation phase 14.0 - 95.6 Luteal phase 1.0 - 11.4 Postmenopausal 7.7 - 58.5 Performed By: #### 1 [id number] #### [facility] [address] [place] [address] Insulin Lvlon 03-24-2024 Insulin Qn 9.4 u[IU]/mL Invalid Interpretation Code 2.6-24.9 [facility] Comment on above: Result Comment: Perf ormed at: [address] [id number] PhD Fara Braswell Performed By: #### 1 [id number] #### [facility] [address] [place] [address] RF Quanton 03-24-2024 Rheumatoid factor Qn [IU]/mL Invalid Interpretation Code <14.0 [facility] Comment on above: Result Comment: Perf ormed at: [facility] [address] [place] [address] [id number] PhD Fara Braswell Performed By: #### 1 [id number] #### [facility] [address] [place] [address] T3 Totalon 03-24-2024 T3 [Mass/Vol] 131 ng/dL Invalid Interpretation Code 71-180 [facility] Comment on above: Result Comment: Perf ormed at: [facility] [address] [place], [place] [id number] PhD Fara Braswell Performed By: #### 1 [id number] #### [facility] [address] [place] [address] CMPon 03-23-2024 Albumin [Mass/Vol] 4.3 g/dL Normal 3.3-5.0 [facility] Comment on above: Performed By: #### 2 [id number] #### [facility] [address] [place] [address] Albumin/Globulin (S) [Mass conc ratio] 1.4 Normal 1.1-2.2 [facility] Comment on above: Performed By: #### 2 [id number] #### [facility] [address] [place] [address] ALP [Catalytic activity/Vol] 82 Int._Unit/L Normal 21-98 [facility] Comment on above: Performed By: #### 2 [id number] #### [facility] [address] [place] [address] ALT No additional P-5'-P [Catalytic activity/Vol] 13 Int._Unit/L Normal 6-46 [facility] Comment on above: Performed By: #### 2 [id number] #### [facility] [address] [place] [address] Anion gap [Moles/Vol] 11 mmol/L Normal 6-16 [facility] Comment on above: Performed By: #### 2 [id number] #### [facility] [address] [place] [address] AST [Catalytic activity/Vol] 16 Int._Unit/L Normal 5-43 [facility] Comment on above: Performed By: #### 2 [id number] #### [facility] [address] [place] [address] Bilirubin [Mass/Vol] 0.8 mg/dL Normal 0.0-1.1 [facility] Comment on above: Performed By: #### 2 [id number] #### [facility] [address] [place] [address] Calcium [Mass/Vol] 9.4 mg/dL Normal 8.9-11.1 [facility] Comment on above: Performed By: #### 2 [id number] #### [facility] [address] [place] [address] Chloride [Moles/Vol] 104 mmol/L Normal 101-111 [facility] Comment on above: Performed By: #### 2 [id number] #### [facility] [address] [place] [address] CO2 [Moles/Vol] 27 mmol/L Normal 21-31 [facility] Comment on above: Performed By: #### 2 [id number] #### [facility] [address] [place] [address] Creatinine [Mass/Vol] 0.7 mg/dL Normal 0.5-1.3 [facility] Comment on above: Performed By: #### 2 [id number] #### [facility] [address] [place] [address] Globulin (S) [Mass/Vol] 3.0 g/dL Normal 1.4-4.0 [facility] Comment on above: Performed By: #### 2 [id number] #### [facility] [address] [place] [address] Glucose [Mass/Vol] 89 mg/dL Normal 55-199 [facility] Comment on above: Performed By: #### 2 [id number] #### [facility] [address] [place] [address] Potassium [Moles/Vol] 4.1 mmol/L Normal 3.5-5.3 [facility] Comment on above: Performed By: #### 2 [id number] #### [facility] [address] [place] [address] Protein [Mass/Vol] 7.3 g/dL Normal 6.0-7.8 [facility] Comment on above: Performed By: #### 2 [id number] #### [facility] [address] [place] [address] Sodium [Moles/Vol] 138 mmol/L Normal 135-145 [facility] Comment on above: Performed By: #### 2 100482 #### [facility] [address] [place] [address] Urea nitrogen [Mass/Vol] 10 mg/dL Normal 5-21 [facility] Comment on above: Performed By: #### 2 [id number] #### [facility] [address] [place] [address] Urea nitrogen/Creatinine [Mass ratio] 14 No Units Normal -20 [facility] Comment on above: Performed By: #### 2 [id number] #### [facility] [address] [place] [address] DbiF7out 03-23-2024 HbA1c (Bld) [Mass fraction] 5.1 % Normal <=5.9 [facility] Comment on above: Performed By: #### 7 [id number] #### [facility] [address] [place] [address] Lipid Panelon 03-23-2024 Cholesterol [Mass/Vol] 153 mg/dL Normal 120-200 [facility] Comment on above: Performed By: #### 2 [id number] #### [facility] [address] [place] [address] Cholesterol in HDL [Mass/Vol] 45 mg/dL Invalid Interpretation Code [facility] Comment on above: Result Comment: '>= 60 LOW RISK' '<= 40 HIGH RISK' Performed By: #### 2 [id number] #### [facility] [address] [place] [address] Cholesterol in LDL [Mass/Vol] 102 mg/dL Normal <=129 [facility] Comment on above: Performed By: #### 2 [id number] #### [facility] [address] [place] [address] Cholesterol in VLDL [Mass/Vol] 26 mg/dL Normal 7-40 [facility] Comment on above: Performed By: #### 2 [id number] #### [facility] [address] [place] [address] Triglyceride [Mass/Vol] 129 mg/dL Normal <=149 [facility] Comment on above: Performed By: #### 2 [id number] #### [facility] [address] [place] [address] T4 & TSHon 03-23-2024 TSH Qn 2.00 m[IU]/L Normal 0.34-5.60 [facility] Comment on above: Performed By: #### 1 [id number] #### [facility] [address] [place] [address] T4 [Mass/Vol] 9.5 microgram/dL High 4.6-9.1 [facility] Comment on above: Performed By: #### 1 [id number] #### [facility] [address] [place] [address] eGFRon 03-23-2024 eGFR 124 mL/min/1.73 m2 Normal >=59 [facility] Comment on above: Performed By: #### 1 [id number] #### [facility] [address] [place] [address] Vaginitis Plus (VG+)on 02-01 Atopobium Vaginae High - 2 Critically abnormal . [facility] Comment on above: Result Comment: This test was developed and its performance characteristics determined by [facility]. It has not been cleared or approved by the Food and Drug Administration. Performed By: #### V AGINITIS+ #### [facility] , BVAB2 Low - 0 Normal . [facility] Comment on above: Result Comment: This test was developed and its performance characteristics determined by [facility]. It has not been cleared or approved by the Food and Drug Administration. Performed By: #### V AGINITIS+ #### [facility] , Leeann Albicans, HANNY Negative Normal Negative [facility] Comment on above: Result Comment: This test was developed and its performance characteristics determined by [facility]. It has not been cleared or approved by the Food and Drug Administration. Performed By: #### V AGINITIS+ #### [facility] , Leeann Glabrata, HANNY Negative Normal Negative [facility] Comment on above: Result Comment: This test was developed and its performance characteristics determined by [facility]. It has not been cleared or approved by the Food and Drug Administration. PERFORMED BY: [facility] [address] [place] [id number] PATHOLOGIST MARKET CONSULTANT AIDEN ALMONTE M.D. Performed By: #### V AGINITIS+ #### [facility] , Chlamydia Trachomotis, HANNY Negative Normal Negative [facility] Comment on above: Performed By: #### V AGINITIS+ #### [facility] , Megasphaera High - 2 Critically abnormal . [facility] Comment on above: [...] Neisseria Gonorrhoeae, HANNY Negative Normal Negative [facility] Comment on above: Result Comment: Perf ormed at: =G - [facility] [address] [id number] Solutions Sales Executive: Allison Miller MD, Phone: [phone] Performed By: #### V AGINITIS+ #### [facility] , Tric Vag HANNY Negative Normal Negative [facility] Comment on above: Performed By: #### V AGINITIS+ #### [facility] , No Panel InformationOrdered By: Manjula Nevarez on 01-20-2024 Quick Strep (POC) [facility] XR ankle RT min 3V*on 2023 XR ankle RT min 3V* [facility] [place] [place] [address] XRay Report Signed Patient: Saroj Membreno MR#: [id number] : 2000 Acct:[id number] Age/Sex: 23 / F ADM Date: 11/13/23 Loc: XDUCLY Room: Type: [facility] CLI Attending Dr: Manjula Nevarez APRN Copies to: Manjula Nevarez APRN Ordering Provider: Manjula Nevarez APRN Date of Service: 11/13/23 XR/XR ankle RT min 3V*: S99.911A - Unspecified injury of right ankle, initial enc... ([id number]) XR/XR foot RT min 3V*: S99.911A - [...] Guilherme Gar M.D.11/13/2023 11:39 AM Dictation Location: [place] [address] Transcribed By: [facility] 11/13/23 1139 Dictated By: Guilherme Gar II, MD 11/13/23 1128 Signed By: 11/13/[address] [facility] 06-30-2023 Beta hCG Qnt <1 Normal 1-3 [facility] Comment on above: Result Comment: 'F N ON < 1 - 3' ' 0.2 - 1 WEEK = 5 TO 50' ' 1 - 2 WEEKS = 50 - 500' ' 2 - 3 WEEKS = 100 - 5000' ' 3 - 4 WEEKS = 500 - 72294' ' 4 - 5 WEEKS = 1000 - 46079' ' 5 - 6 WEEKS = 20753 - 118041' ' 6 - 8 WEEKS = 16374 - 861507' ' 8 - 12 WEEKS = 50950 - 090206' Performed By: #### 2 [id number] #### [facility] [address] [place] [address] Physician Orderon 06-30-2023 Physician Order [id number] Normal [facility] US ABD RIGHT UPPER QUADRANTo n 03-12-2023 [...] hydronephrosis. Ascites: None. IMPRESSION: No acute findings. 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: PSCB Transcribe Date/Time: Mar 13 2023 11:44A Dictated by : TANNER RAMSEY MD This examination was interpreted and the report reviewed and electronically signed by: TANNER RAMSEY MD on Mar 13 2023 11:49AM EST [id number] Normal [facility] SURGICAL PATHOLOGYOrdered By : Ayan Donaldson on 03-05-2023 Case Report Surgical Pathology R eport Case: [id number] Authorizing Provider: Shelly Parsons DO Collected: 03/03/2023 10:24 AM Ordering Location: Ambulatory Surgery Received: 03/03/2023 10:41 PM Pathologist: Ayan Donaldson MD Specimens: A) - SMALL INTESTINE BIOPSY, r/o celiac B) - STOMACH BIOPSY, r/o h pylori C) - STOMACH (GASTRIC) POLYP BIOPSY, polyps [facility] Work Phone: Diagnosis Comment d1gnmJPwUQKeiPSzIMJl M1xhb qVbRXYiwBQiY3CwtyqrASlfJY 2rTG3moDylvCDkrXTfUMJnXvB lk0izz778uVPpn8cyGCBYqexd kWv7wJxvH13nv2Y5ImrcT67ql HFdXFR2CISlQIKdvLAjBCZuJU B0FWQvvXOwU6vuSIXzIH6gpyo lAGclKYgeQBPmqXJ5PUZljSSo O1BcFKYvHKbxNXCgxzt7DtFfI u1qwFWreVheNGnxUAMbDXZzGV duITEoRbOtKfrkJw0hEw8kTJA eaFNmDaTnfYXoJCV8qD3qePNd nhepqdltjKLhQLCrTWksPP14l ZRoBWImXB9iZYgedUJwpHrvOE xofKS4VDIcYWHgHWErwlRoCSK uLiBUaGVyZSBpcyBubyBldmlk LZ2tDWBoSwZbjTEafQIxvKSeh 8WqaHUncRekAH9hdP0wmCOinU == [facility] Work Phone: FINAL DIAGNOSIS k6sztAEjXZGynDHsTWGw M1xhb nAaPZZfwKZwV5ZwrusyMPheZI 0hSU7ejRbpfRVstYXlCJPwTdY mo6ato710vKCau3flRHHIavlm aHb8jHfpC96pm6B1FcaqQ30rx CJcYHG1BHCbDSAloQJdNIHyWK X1EGLvfCXcS3iwKJIjHU7xyaa nMZbgPUfoGGJepSO4OHAqdXZb R8IlRJPpKCemIXHblnm8LiSsH p7doYTeyXxiMXohLRWxGDTcOO ziMVNfClXbPB7lXIWmBOOvbE3 mVAToo9JoyHgvwPfpDDUtELLj KZpxBRItg2CbWB70C46aEUT7v KWtTY3nILMgTVrxi8S3cKZoZA Ycq9MhEPzzxVazHNRhiflsSTJ xZc6iT9FltRTejAuvAnyjdWX6 PvjefQ4eSC1vP9BvKARokLYvZ YicRtZbQ75edzNpb6JfD1FctT HoBmTmcZQfm5Pwa6g8lTFbOOS eeHl1WKDsEJJ8hs4jQCOpjM43 dNMbQTDnTQ9aSSGmBAMmvoOyR NFduVGoCGZxVQMiVXmgTN52nu HzUhNxNYI3mvlhMD19vL78eMA qxJlhZITjoDKeh9Wmr5i4yCXb bxQqnDQpfy1ssNrqEWZzdz5si FCztFE9ZzdlZXHzfLEaHDPjIX A7g00cB0kvWRNezSaneaxpMbc gjJIkFDZ5SWtfsqRrERJAkR9d cMLvI4vpnsZriS8jpTNxRXCyk iAtIFNlcGFyYXRlIGZyYWdtZW 86FW4tIOqjb5MrhWMgg2t6dqH xQk17zKLiFA32J77iAUD4iNOa CYAwihZqlNJpNLb2hGHcoYxcu 2lhLlxwYXJccGFyIEpFTCAxMC 8oNj4yLVObLSMlcr5= [facility] Work Phone: Gross Description j7oomFZcCQEzhONrTLHl M1xhb oGpQVJsyZEfK0VqrzfgKNbxBR 5yGU7eqZavbNNfsCBiBJLgRuJ gs3xrl423jBXds7msJOPVmuqd qMn1kBlaP32ul2E1VixyK07vr KWcECT7WATmENOvdYWoRJGbGW Z8EIDkbTSrQ6snBLLfCE2bcfs dXUqqQZynLAZnoYL8FICgoMZp B8XoVJBiTFhgRBHtbfg6KvVrV l9fgJPclBplACpwPvmrvDfah8 VjdCBcXGlkIDUxMDAwIFxcZGI yQ9VOSUPbTWR1NxRhKCMfSVOO WGQ7NRlxJQQ2JZUJZQVjXJgaG pJ0EVTyURGwPPKSQRHrHyX2LP AwMDIgXFxuaCBcXHQgMSBcXGZ uRPjpmoD3t2rrYMShyIHoCDQ6 IFxcaWQgNTEwMDIgXFxkYiBPV sEtArI6Mwh0TgIlCbBqEJf1LJ sbI5QUWTOcQWZ8OuCaRTC3NoO 1ZEn2HTDFTz6nBBSpUNG1Fhw3 GrZmRKB8KsPrEAy0XLFfCMice qScEPdjJqgoMFvyN69jvHFeFD xwbGFpblxmczIyIEEuIFNNQUx IXBxJGMWZQFuVJWVXHQ4NF1lf oHPeIEQajnVuc1WbZKgxrOdrP ZRiHwOwlOikhD0bGbPlSPXOFN ClrLXpHMWrhsRgy6GuCJhcjmM merAdmgLgeNlxM3Jkl1EnlUXp GFIzi6tyHAScl4Q7NTXbt4Z0L JBtENEinDZvujrqTP93ITdxBI 90IWfqAS9wFMYyRrRBp6GtrWh 3YOC7Th3zcWArFBWwpmTlfkZf B4Wgm0A9kORfJVgdBCEloJCzG NosQOPjTNSzyCGHs1JhQFldTL XhT5CoM6KinuR3VBCmdsdaTit rxUazg2ObhUYgFImjPCRwNHGk JBcjMQHrD7QQIMZeQWR6SaZjE JJoAEy0RVn2VQ9CNkZyUNBlQM WkJvxbSNWmIVw4XOxcNE3MQZW mLwX7PnG0OVO5RMR8Ygn4JYbg oZQrMPvqi1MfBhNfKZKcPRete gS2ERCgohLkw7ErCMFnEEUxU2 sfYiEdSXjrppNxMYZyROCAS38 PF5ohBgjOGUHJVREdlkmwHUIa HHDgPlOxWYAbK4fdVpTvDRXrF OocHPQtTcUdEoOqZXx6RPCqwQ 1wKt0fdIRunL5nLUUuIK79yBR anQktNQOaLVNzuyNbCrH2EE6x SrPvh95gXHYvDmAngSygz0AmF HXzB0LjM0G8oZ4eNTHtFSHgRm H1YJFhKoD2KHVpVwOvlV8nMN8 0GFoivZWznDUduVR9QCTskY8i z12kLADdz1YqjIBlZaXviSJlB XAqrmHdw8GgNKvaxJadVYQhXq S3UHToqBWkFVQ5UT9alBqiSJA 5SHstLMMtU2VtA9JnVFphQED0 DVMqGuAgEMLlGU9KGjMgMEAuD ls8GoBsGuO0MOx0QVOHVnWyXi JxDon3JfN9FjniNMg6CBx6IMn AIxPeJEArNOerPqf4GWX0CAc6 NCBcXHQgMiBcXHNzIDMgXFxmb VNmGM2vdSwlHAFdSPApMEC8HW SdiBOBu8IuWBSrXqHjVoYEOxY LLV7YRONMPVeNRATLYqsDCJEA X9fIUZVPTF7UG7uxjULxOZCyg bFkd9WfUTkawZfzCJBuJwOliG zdwC0oZwDySUZJEBAgiUBmPRF qfhYyb8SjDCuzrgPekxZytDnn EMDeTUWhgpBrDgZ3WU0lGkShb 75hVSRnNlVbvQntn6PeCOQoK5 OsS4D0rY8vBHLhCHPpWtK4XPE sCbF7HVCzHhLseB0zPQ14NFvf nWCqjXCuuAH2YFAceF8re66yK WAss8XofWBrKextGWSnwMCmUD ZnDACgcaCEvy6iagTpxMOsnH6 mvJszqnXdZPOic0QwOVLqKTHb Z8scsdCfLS9yCJIonW5qHhqfZ TUwMCBFdWNsaWQgQXZlLiwgQ2 rsnkIfJT5iSNHPEIF4OEM2TSh pWJTtxIWnGMHjUbIoCRYgE7cp LRTxGJiBVA0emZ1fMVBuWTZnA DIwMjMgMTozMiBBTVx+e1xlcG uff7WbuBZuFF51DOBhaHIvJFL 5KX7pbWdgVRQ7 [facility] Work Phone: Performing Lab t3oqlAJrFXJslEMnVwXk MDAwX GAca7emUTRzzYPkQiOuZjFkMe WbPncikTWnJTOlEiQfg3cts10 4wPTaa8tzLSNbEmB0eSBnVOFa oNLsL182RKDwTPkic1obh3LtO ADlyLWlz0J9KWOLoffqbHk1jC dkS10eu7C3FotrL5fxBJHeOBZ sD3LfSD3cQAYnZrg6PXQ3VTB1 YPLzOOIvQ8SkON1xPNCbwAQyZ Hh5p6yixZnjDJAaHYD3z9baMK fcbrMvAR7dba1gmFe2s6wqykU jWXTuKZCwrWVGOZLsG7QfeLiv Vd1acWo7uAnlQcbdWKK2Jnx3U Q7qkd30pop5nAcjHUVhspvbNc F2ZSdnZAQnackxYPs2VManCZA aqWB5RJVwgYXwC1EeJAHzKQ9n yoz9EOP1BQniRLGkBfW4XVBic DIiVLHdjCoiPDbgq569YAD0Lt JcQD9lU1Dvq2T9rK1twMYrROO nzQXzThKhAKKvth1wkXTlTVli i7QzRTX5eaU9yCYvlZMgQJVeU E17Ivjbj0ZqZcwhd1NrL13edL G0JEeow2ztDE9eBkL2zvSfXPh um4ozdU7tYoM5SUylFA8qWZ3k CSUmkW6enkvkXCFuCxFqxahfH XBegHfpntDqVr4gpTsyGXR7XG qfZ0bueV7pKwA1JWebT8pjmC8 pZEn2SZvgoWV0UVDfwL2uZD1x ieigv5tgTTryWUlfSJUmrjN8n lI3HHNfsFGfW6XmjT8hFYTqRZ 3ixaeir8kzIRN5RKamELIzMPZ 0CfZbVXAbv4Ezpob1ZhEcf7Lf qXCrCNcqX81ic590MRTwcaNpT 1xwbGFpblxwbGFpblxmMFxmcz S5RFVkCLMrDDmrVFBmXYNcFoB cbGFuZzEwMzNcaGljaFxmMVxk CpHfPDPxLTchR1puQlRcUgOpV xGGsZKqxf5fiGadWUxvjVEbbI YfyLX2rQ8rVHTmafVtud6iSRC pxYCUiST4TErwalAdQ3xvhoiz HCHssVY5iFT1YJhuc0EimURaP BIqYZMtYCWMg2NqtV5yXRGfBW PTrBC5EZlfzeDjPX7RVRJ7IVY aNEIyOEZZHWShWPV7ENG5OVd1 NDlccGFyXHBhclxwYXJkXHBsY IsrUVPdOGBwFqIxnVhdfV3hHz GsPiKsHirgQL6xGMAcD3gexGF nQXGjYRIeH0zjHwCroQ7apTwz MVxjZjJcZnMyMlxsdHJjaCBMY HTxpgK5j4J5AZsdfIWseoiyQR measHxUSvwsxomXSEjRUdnW6h iLpMwNERwkWkpOZpmx7YlQDTw MVMlYaYuBNvkGRK6a7F9SB5ii ospCy8iVOFcWMFiD04kOZEJQy QuXHBhcn0= [facility] Work Phone: [facility] Work Phone: ANES POSTPROC EVALon 023 ANES POSTPROC EVAL HNO ID: [id number] Author: Ralph Childs APRN.CRNA Service: ? Author Type: Nurse Security Police Type: Anesthesia Postprocedure Evaluation Filed: 03/03/2023 10:32 [...] March 03, 2023 TIME: 10:31 AM CSN: [id number] Normal [facility] EGD Study observation Park sanchez 03-03-2023 [facility] Gastroenterology Gastrointestinal Endoscopy Patient Name: Saroj Membreno Procedure Date: 03/03/2023 10:10 AM Date of : 2000 Admit Type: Outpatient Age: 23 Room: [facility] 3 Gender: Female Note Status: Finalized Attending [...] referring physician. Procedure Code(s): --- Professional --- 10930, Esophagogastroduodenosc (more content not included)... PROVATION [facility] Radiology Study observation (narrative) [facility] HISTORY PHYSICALon HISTORY PHYSICAL HNO ID: [id number] Author: Shelly Parsons DO Service: Gastroenterology Author [...] Additional Comments: None Shelly Parsons DO Normal [facility] NURSING PROGon 03-03-2023 NURSING PROG HNO ID: [id number] Author: Meghann Kwan RN Service: Nursing Author [...] Escalante RN In Department: AMBULATORY SURGERY Normal [facility] NURSING PROG HNO ID: [id number] Author: Bia Price RN Service: ? Author [...] Price RN In Department: AMBULATORY SURGERY Normal [facility] SURGICAL PATHOLOGYon 023 CASE REPORT Normal [facility] Comment on above: Order Comment: Speci men Type: TISSUE SPECIMENOrdering Facility: [facility] Address: [address] [place] [address] Result Comment: Surg ical Pathology Report Case: [id number] Authorizing Provider: Shelly Parsons DO Collected: 03/03/2023 10:24 AM Ordering Location: Ambulatory Surgery Received: 03/03/2023 10:41 PM Pathologist: Ayan Donaldson MD Specimens: A) - SMALL INTESTINE BIOPSY, r/o celiac B) - STOMACH BIOPSY, r/o h pylori C) - STOMACH (GASTRIC) POLYP BIOPSY, polyps Performed By: #### S ####[place] [facility] [id number] [address] DIAGNOSIS COMMENT B, C. No Helicobacte r pylori organisms are identified. No intestinal metaplasia is seen. There is no evidence of dysplasia or malignancy. Normal [facility] Comment on above: Order Comment: Speci men Type: TISSUE SPECIMENOrdering Facility: [facility] Address: [address] [place] [address] Performed By: #### S ####[facility] [facility]ORY[facility] [id number] [address] FINAL DIAGNOSIS Normal [facility] Comment on above: Order Comment: Speci men Type: TISSUE SPECIMENOrdering Facility: [facility] Address: [address] [place] [address] Result Comment: A. D uodenum, biopsy: - Small bowel mucosa with no diagnostic abnormality. B. Stomach, biopsy: - Superficial fragment of gastric mucosa with reactive gastropathy-type changes. - Separate fragments of gastric oxyntic-type mucosa with no diagnostic abnormality. C. Stomach, polyps, biopsies: - Fundic gland polyp. - Separate fragment of gastric oxyntic-type mucosa with foveolar hyperplasia. JEL 03/05/2023 Performed By: #### S ####[facility] [facility]ORYCLIA [id number] [address] FINAL PERFORMING LAB Normal [facility] Comment on above: Order Comment: Speci men Type: TISSUE SPECIMENOrdering Facility: [facility] Address: [address] [place] [address] Result Comment: Diag nostic interpretation performed at [facility], [address] [place] [address] CLIA# [id number] Credit Relationship Manager: Guilherme Gonzalez M.D. Performed By: #### S ####[place] [facility]ORYCLIA [id number] [address] OF [facility] GROSS DESCRIPTION Normal [facility] Comment on above: Order Comment: Speci men Type: TISSUE SPECIMENOrdering Facility: [facility] Address: [address] [place] [address] Result Comment: A. S MALL INTESTINE BIOPSY [...] in one cassette. Gross examination performed at [facility], [address] March 04, 2023 1:32 AM Performed By: #### S ####[place] LABORATORYCLIA [id number] [address] Upper GI endoscopy 10-10-2 023 Upper GI endoscopy [facility] Gastroenterology Gastrointestinal Endoscopy Patient Name: Saroj Membreno Procedure Date: 03/03/2023 10:10 AM Date of : 2000 Admit Type: Outpatient Age: 23 Room: [place] [address] Gender: Female Note Status: Finalized Attending MD: [...] referring physician. Procedure Code(s): --- Professional --- 46142, Esophagogastroduodenoscop y, flexible, transoral; with biopsy, single or multiple Diagnosis Code(s): --- Professional --- K22.89, Other specified disease of esophagus K31.7, Polyp of stomach and duodenum Z01.818, Encounter for other preprocedural examination E66.01, Morbid (severe) obesity due to excess calories CPT copyright 2020 [employer]. All rights reserved. The codes documented in this report are preliminary and upon retail loss prevention specialist review may be revised to meet current compliance requirements. Scope In: 10:21:13 AM Scope Out: 10:25:25 AM DO Shelly Patel DO 03/03/2023 10:30:44 AM This report has been signed electronically by Shelly Parsons DO Number of Addenda: 0 Note Initiated On: 03/03/2023 10:10 AM Estimated Blood Loss: Estimated blood loss was minimal. Normal [facility] ANES PRE-OPon 02-16-2023 ANES PRE-OP HNO ID: [id number] Author: Ralph Childs APRN.HEAD WELL PULLER Service: ? Author Type: Nurse Security Police Type: Anesthesia Preprocedure Evaluation Filed: 03/03/2023 10:13 [...] February 16, 2023 TIME: 2:56 PM CSN: [id number] [facility] CNOVon 02-11-2023 CNOV Office Visit (CARDAV ) ----- SAORJ MEMBRENO ([id number]) 2 F Date Time Provider Department 02/11/23 8:30 AM NURSE CARD [facility] JAMIN BARBOZA During your visit today, we recorded the following information about you: Roya Lawler RN 02/11/2023 8:34 AM Signed Ekg completed. Pt with no voiced complaints. Provider cc'd of completion. Referring Provider: ALLIE LARSON [[id number]] Allergies As of Date: 02/11/2023 (No Known Allergies) Date Reviewed: 02/04/2023 Reviewed by: Sasha Xie RD - Fully Assessed Reason for Visit: Cardiology Follow Up [1732] Visit Diagnoses:Pre-op evaluation [Z01.818] Class 3 severe obesity with serious comorbidity and body mass index (BMI) of 40.0 to 44.9 in adult, unspecified obesity type (HCC) [E66.01, Z68.41] Order(s):ECG COMPLETE [ECG01] Order #: [id number]. #:[id number] Prescriptions as of 02/11/2023 - ARIPiprazole [...] 01/19/2023 Visit Notes: >> Roya Lawler RN ThuFeb 11, 2023 8:33 AM Status: Signed Ekg completed. Pt with no voiced complaints. Provider cc'd of completion. Encounter Status:Closed by ROYA LAWLER on 02/11/23 Normal [facility] ECG COMPLETEon 09-20-2023 ECG COMPLETE Ventricular Rate : 5 9 BPM Atrial Rate : 59 BPM P-R Interval : 166 ms QRS Duration : 74 ms Q-T Interval : 408 ms QTC Calculation(Bazett) : 403 ms Calculated P [place] : 35 degrees Calculated R [place] : 66 degrees Calculated T [place] : 39 degrees SINUS BRADYCARDIA WITH SINUS ARRHYTHMIA BORDERLINE ECG Confirmed by STALIN HARRIS MD ([id number]) on 02/12/2023 9:13:18 PM NAME : SAROJ MEMBRENO PID : [id number] : 2000 Gender : Female Race : ORD : [id number] Procedure Date : Feb 11 2023 08:29:59 Edit Date : Feb 12 2023 21:13:23 Diagnosis: SINUS BRADYCARDIA WITH SINUS ARRHYTHMIA BORDERLINE ECG Confirmed by STALIN HARRIS MD ([id number]) on 02/12/2023 9:13:18 PM Test Reason : Location : 192 : AVCRD Overread By : STALIN HARRIS MD Edited By : STALIN HARRIS MD Referred By : ALLIE LARSON Acquired by : , Jeanine [facility] 02-10-2023 CNPN Telephone (WIQ) ----- HASEEBSAROJ ([id number]) 2 F Date Time Provider Department 02/10/23 CECE OBANDO WIIsidoro During your visit today, we recorded the following information about you: Cece Obando, [facility] 02/10/2023 10:12 AM Signed Smoking Cessation Navigation Outcome of contact: Spoke with Intervention Chosen By Patient: Other Comments: Patient quit last week. eHealth Curing Finisher/Smoking Cessation Navigator: [facility] Allie Larson APRN.[facility] 02/10/2023 11:32 AM Signed Noted, thank you [...] Encounter Status:Closed by CECE OBANDO on 02/10/23 [facility] CNOVon 01-30-2023 CNOV Office Visit (BMIREJ ) ----- SAROJ MEMBRENO ([id number]) 2 F Date Time Provider Department 01/30/23 9:30 AM NORBERTO MALONE BMIMOLLYJ During your visit today, we recorded the following information about you: Pulse Blood pressure Weight 76/minute 118/77 113.4 kg Norberto Malone MD 01/30/2023 3:35 PM Signed Assessment NEW BARIATRIC PATIENT PATIENT NAME: Saroj Membreno REASON FOR CONSULT: Morbid Obesity REQUESTING PHYSICIAN: Self DATE of SERVICE: 01/29/2023 TIME of SERVICE: 9:10 AM PCP: No primary care provider on file. CC: Morbid Obesity HPI: Ms. Haseeb is a 23 year old female who [...] goal weight prior to liquid fast: Per emergency vehicle technician Surgically Cleared with completion of the below: [...] potential med (more content not included)... Normal [facility] XR CHEST 2V FRONTAL/LATon XR CHEST [...] tissues: Unremarkable. IMPRESSION: No acute radiographic abnormality. 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: PSCB Transcribe Date/Time: Jan 30 2023 12:41P Dictated by : ROD BELL MD This examination was interpreted and the report reviewed and electronically signed by: ROD BELL MD on Jan 30 2023 12:43PM EST [id number] Normal [facility] 01-21-2023 ADELIA Telephone (WIQ) ----- SAROJ MEMBRENO ([id number]) 2 F Date Time Provider Department 01/21/23 CECE OBANDO During your visit today, we recorded the following information about you: [facility] 01/21/2023 11:57 AM Signed Smoking Cessation Navigation Outcome of contact: Left Message Comments: A voicemail has been left for this patient regarding Tobacco Cessation support options. If this patient has any further questions they can email us at or call us at [phone]. [employer] Curing Finisher/Smoking Cessation Navigator: [facility] Allergies As of Date: 01/21/2023 (Not on File) Date Reviewed: 01/19/2023 Reviewed by: Allie Larson APRN.KNIFE SHARPENER - Fully Assessed Reason for Visit: Smoking [...] Encounter Status:Closed by CECE OBANDO on 01/21/23 [facility] CNOVon 01-19-2023 CNOV Office Visit (GENBMI ) ----- SAROJ MEMBRENO ([id number]) 2 F Date Time Provider Department 01/19/23 9:00 AM ALLIE LARSON GENBMI During your visit today, we recorded the following information about you: Pulse Blood pressure Weight Height 84/minute 111/53 114.9 kg 1.622 m Last Period 12/29/22 Allie Larson APRN.KNIFE SHARPENER 01/19/2023 10:06 AM Signed BMI Obesity Medicine [...] Characterization of diet: Unstructured and skip meals. Solid Waste Technician of impaired eating habits:denies Eating Disorder no [...] Anxiety and depression Asthma No history of VA, COPD, +asthma, peptic ulcer disease, +GERD, dyslipidemia, [...] Adult) Pul (more content not included)... Normal [facility] CULTURE ABSCESSon 09-27-2022 CULTURE ABSCESS Culture [...] F Vancomycin 1 S F Normal [facility] Comment on above: Performed By: #### A BCESCX #### [facility] [address] [place] [address] Dr. Magali Phillips AMYLASEon 09-20-2022 Amylase [Catalytic activity/Vol] 33 U/L Normal 25-115 [facility] Comment on above: Performed By: #### A MY, CMP, LIPA #### [facility] [address] [place] [address] Dr. Magali Phillips CBC AUTO DIFFon 09-20-2022 BASO # 0.0 103/ul Normal 0.0-0.1 [facility] Comment on above: Performed By: #### C BC #### [facility] [address] [place] [address] Dr. Magali Phillips Basophils/100 WBC (Bld) 0.2 % Normal 0.2-2.0 [facility] Comment on above: Performed By: #### C BC #### [facility] [address] [place] [address] Dr. Magali Phillips EO # 0.0 103/ul Normal 0.0-0.7 [facility] Comment on above: Performed By: #### C BC #### [facility] [address] [place] [address] Dr. Magali Phillips Eosinophils/100 WBC (Bld) 0.3 % Critically low 0.9-7.0 [facility] Comment on above: Performed By: #### C BC #### [facility] [address] [place] [address] Dr. Magali Phillips Erythrocyte distribution width (RBC) [Ratio] 12.4 % Normal 11.0-15.0 [facility] Comment on above: Performed By: #### C BC #### [facility] [address] [place] [address] Dr. Magali Phillips Hematocrit (Bld) [Volume fraction] 43.8 % Normal 36.0-48.0 [facility] Comment on above: Performed By: #### C BC #### [facility] [address] [place] [address] Dr. Magali Phillips Hemoglobin (Bld) [Mass/Vol] 14.9 g/dL Normal 12.0-16.0 [facility] Comment on above: Performed By: #### C BC #### [facility] [address] [place] [address] Dr. Magali Phillips IG # 0.03 10e3/ul Normal 0.00-0.03 [facility] Comment on above: Performed By: #### C BC #### [facility] [address] [place] [address] Dr. Magali Phillips IG % 0.2 % Normal 0.0-0.5 [facility] Comment on above: Performed By: #### C BC #### [facility] [address] [place] [address] Dr. Magali Phillips LYMPH # 2.6 103/ul Normal 1.2-3.8 [facility] Comment on above: Performed By: #### C BC #### [facility] [address] [place] [address] Dr. Magali Phillips Lymphocytes/100 WBC (Bld) 21.0 % Normal 20.5-60.0 [facility] Comment on above: Performed By: #### C BC #### [facility] [address] [place] [address] Dr. Magali Phillips MANUAL DIFF REQ NO Normal [facility] Comment on above: Performed By: #### C BC #### [facility] [address] [place] [address] Dr. Magali Phillips MCH (RBC) [Entitic mass] 30.2 pg Normal 26.7-34.0 [facility] Comment on above: Performed By: #### C BC #### [facility] [address] [place] [address] Dr. Magali Phillips MCHC (RBC) [Mass/Vol] 34.0 g/dL Normal 29.9-35.2 [facility] Comment on above: Performed By: #### C BC #### [facility] [address] [address] [address] Magali Phillips MCV (RBC) [Entitic vol] 88.8 fL Normal 81.0-99.0 [facility] Comment on above: Performed By: #### C BC #### [facility] [address] [address] [address] Magali Phillips MONO # 1.0 103/ul Critically high 0.3-0.8 [facility] Comment on above: Performed By: #### C BC #### [facility] [address] [place] [address] Dr. Magali Phillips Monocytes/100 WBC (Bld) 8.0 % Normal 1.7-12.0 [facility] Comment on above: Performed By: #### C BC #### [facility] [address] [place] [address] Dr. Magali Phillips NEUT # 8.6 103/ul Critically high 1.4-6.5 [facility] Comment on above: Performed By: #### C BC #### [facility] [address] [place] [address] Dr. Magali Phillips Neutrophils/100 WBC (Bld) 70.3 % Normal 43.0-75.0 [facility] Comment on above: Performed By: #### C BC #### [facility] [address] [place] [address] Dr. Magali Phillips Platelet mean volume (Bld) [Entitic vol] 9.6 fL Normal 9.5-13.5 [facility] Comment on above: Performed By: #### C BC #### [facility] [address] [place] [address] Dr. Magali Phillips PLT 279 103/ul Normal 150-450 [facility] Comment on above: Performed By: #### C BC #### [facility] [address] [place] [address] Dr. Magali Phillips RBC 4.93 106/ul Normal 4.20-5.40 [facility] Comment on above: Performed By: #### C BC #### [facility] [address] [place] [address] Dr. Magali Phillips WBC 12.2 103/ul Critically high 4.0-11.0 [facility] Comment on above: Performed By: #### C BC #### [facility] [address] [place] [address] Dr. Magali Phillips CULTURE URINEon 09-20-2022 CULTURE URINE Culture Observations : MODERATE GROWTH OF MIXED GENITAL DEE. NO POTENTIAL PATHOGENS SEEN. Normal [facility] Comment on above: Performed By: #### U RCX #### [facility] [address] [place] [address] Dr. Magali Phillips ER URINE PROFILEon Bilirubin Ql (U) Negative Normal NEGATIVE [facility] Comment on above: Performed By: #### Mulu ESCOBEDO UMICRO #### [facility] [address] [place] [address] Dr. Magali Phillips Clarity (U) CLEAR Normal CLEAR [facility] Comment on above: Performed By: #### BRIAN CLAROSICRO #### [facility] [address] [place] [address] Dr. Magali Phillips Color (U) LT. YELLOW Normal YELLOW [facility] Comment on above: Performed By: #### Mulu ESCOBEDO UMICRO #### [facility] [address] [place] [address] Dr. Magali Phillips ERUAHD A micrscopic examina tion will be performed if indicated. Normal [facility] Comment on above: Performed By: #### Mulu ESCOBEDO UMICRO #### [facility] [address] [place] [address] Dr. Magali Phillips Glucose Ql (U) Negative Normal NEGATIVE [facility] Comment on above: Performed By: #### Mulu ESCOBEDO UMICRO #### [facility] [address] [place] [address] Dr. Magali Phillips Hemoglobin Ql (U) MODERATE Abnormal NEGATIVE [facility] Comment on above: Performed By: #### Mulu ESCOBEDO UMICRO #### [facility] [address] [place] [address] Dr. Magali Phillips Ketones Ql (U) Negative Normal NEGATIVE [facility] Comment on above: Performed By: #### Mulu ESCOBEDO UMICRO #### [facility] [address] [place] [address] Dr. Magali Phillips LEUKOCYTES MODERATE Abnormal NEGATIVE [facility] Comment on above: Performed By: #### Mulu ESCOBEDO UMICRO #### [facility] [address] [place] [address] Dr. Magali Phillips Nitrite Ql (U) Negative Normal NEGATIVE [facility] Comment on above: Performed By: #### Mulu ESCOBEDO UMICRO #### [facility] [address] [place] [address] Dr. Magali Phillips pH (U) 5.5 [pH] Normal 5-9 [facility] Comment on above: Performed By: #### Mulu ESCOBEDO UMICRO #### [facility] [address] [place] [address] Dr. Magali Phillips SPEC GRAVITY 1.025 Normal 1.005-<=1.[address] [place] [address] Comment on above: Performed By: #### Mulu ESCOBEDO UMICRO #### [facility] [address] [place] [address] Dr. Magali Phillips UA PROTEIN Negative Normal NEGATIVE/ TRACE [facility] Comment on above: Performed By: #### Mulu ESCOBEDO UMICRO #### [facility] [address] [place] [address] Dr. Magali Phillips UR MICRO IND INDICATED Normal [facility] Comment on above: Performed By: #### Mulu ESCOBEDO UMICRO #### [facility] [address] [place] [address] Dr. Magali Phillips Urobilinogen Qn (U) 0.2 {Nickie'U}/dL Normal 0.2 - 1. 0 [facility] Comment on above: Performed By: #### Mulu ESCOBEDO UMICRO #### [facility] [address] [place] [address] Dr. Magali Phillips LIPASEon 09-20-2022 Lipase [Catalytic activity/Vol] 62.0 U/L Critically low 73.0-393.0 [facility] Comment on above: Performed By: #### A MY, CMP, LIPA #### [facility] [address] [place] [address] Dr. Magali Phillips OCC BLD IMMUNO SCREENon 08-24 OCCULT BLOOD Negative Normal NEGATIVE [facility] Comment on above: Performed By: #### O BSCRN #### [facility] [address] [place] [address] Dr. Magali Phillips PROF 14(COMP METB)on 023 Albumin [Mass/Vol] 4.0 g/dL Normal 3.4-5.0 [facility] Comment on above: Performed By: #### A MY, CMP, LIPA #### [facility] [address] [place] [address] Dr. Magali Phillips Albumin/Globulin [Mass ratio] 1.0 {ratio} Normal [facility] Comment on above: Performed By: #### A MY, CMP, LIPA #### [facility] [address] [place] [address] Dr. Magali Phillips ALP [Catalytic activity/Vol] 117 U/L Critically high 46-116 [facility] Comment on above: Performed By: #### A MY, CMP, LIPA #### [facility] [address] [place] [address] Dr. Magali Phillips ALT [Catalytic activity/Vol] 24 U/L Normal 14-59 [facility] Comment on above: Performed By: #### A MY, CMP, LIPA #### [facility] [address] [place] [address] Dr. Magali Phillips Anion gap [Moles/Vol] 12.5 mmol/L Normal [facility] Comment on above: Performed By: #### A MY, CMP, LIPA #### [facility] [address] [place] [address] Dr. Magali Phillips AST [Catalytic activity/Vol] 17 U/L Normal 15-37 [facility] Comment on above: Performed By: #### A MY, CMP, LIPA #### [facility] [address] [address] [address] Magali Phillips Bilirubin [Mass/Vol] 1.0 mg/dL Normal 0.2-1.0 [facility] Comment on above: Performed By: #### A MY, CMP, LIPA #### [facility] [address] [address] [address] Magali Phillips Calcium [Mass/Vol] 8.8 mg/dL Normal 8.5-10.1 [facility] Comment on above: Performed By: #### A MY, CMP, LIPA #### [facility] [address] [address] [address] Magali Phillips Chloride [Moles/Vol] 106 mmol/L Normal 98-107 [facility] Comment on above: Performed By: #### A MY, CMP, LIPA #### [facility] [address] [place] [address] Dr. Magali Phillips CO2 [Moles/Vol] 24.2 mmol/L Normal 21.0-32.0 [facility] Comment on above: Performed By: #### A MY, CMP, LIPA #### [facility] [address] [place] [address] Dr. Magali Phillips Creatinine [Mass/Vol] 0.71 mg/dL Normal 0.55-1.02 [facility] Comment on above: Performed By: #### A MY, CMP, LIPA #### [facility] [address] [place] [address] Dr. Magali Phillips EGFR-AF SWEDISH >60 Normal >=60 [facility] Comment on above: Performed By: #### A MY, CMP, LIPA #### [facility] [address] [place] [address] Dr. Magali Phillips EGFR-NON AF SWEDISH >60 Normal >=60 [facility] Comment on above: Performed By: #### A MY, CMP, LIPA #### [facility] [address] [place] [address] Dr. Magali Phillips Globulin (S) [Mass/Vol] 4.0 g/dL Normal [facility] Comment on above: Performed By: #### A MY, CMP, LIPA #### [facility] [address] [address] [address] Magali Phillips Glucose [Mass/Vol] 91 mg/dL Normal 74-106 [facility] Comment on above: Performed By: #### A MY, CMP, LIPA #### [facility] [address] [address] [address] Magali Phillips Potassium [Moles/Vol] 3.7 mmol/L Normal 3.5-5.1 [facility] Comment on above: Performed By: #### A MY, CMP, LIPA #### [facility] [address] [place] [address] Dr. Magali Phillips Protein [Mass/Vol] 8.0 g/dL Normal 6.4-8.2 [facility] Comment on above: Performed By: #### A MY, CMP, LIPA #### [facility] [address] [place] [address] Dr. Magali Phillips Sodium [Moles/Vol] 139 mmol/L Normal 136-145 [facility] Comment on above: Performed By: #### A MY, CMP, LIPA #### [facility] [address] [place] [address] Dr. Magali Phillips Urea nitrogen [Mass/Vol] 8.0 mg/dL Normal 7.0-18.0 [facility] Comment on above: Performed By: #### A MY, CMP, LIPA #### [facility] [address] [place] [address] Dr. Magali Phillips Urea nitrogen/Creatinine [Mass ratio] 11.3 mg/mg Normal [facility] Comment on above: Performed By: #### A MY, CMP, LIPA #### [facility] [address] [place] [address] Dr. Magali Phillips URINE MICROSCOPIC ONLYon BACTERIA TRACE Abnormal NONE SEEN [facility] Comment on above: Performed By: #### E RUR UMICRO #### [facility] [address] [place] [address] Dr. Magali Phillips Bacteria identified Cx Nom (U) INDICATED Normal [facility] Comment on above: Performed By: #### E RUR, UMICRO #### [facility] [address] [place] [address] Dr. Magali MADRIGAL SEEN Abnormal NONE SEEN [facility] Comment on above: Performed By: #### E RUR, UMICRO #### [facility] [address] [place] [address] Dr. Magali Phillips Crystals LM Nom (Urine sed) NONE SEEN Normal NONE SEEN [facility] Comment on above: Performed By: #### E RUR, UMICRO #### [facility] [address] [place] [address] Dr. Magali Phillips Epithelial cells LM Ql (Urine sed) FEW Abnormal NONE SEEN /RARE [facility] Comment on above: Performed By: #### E RUBere, UMICRO #### [facility] [address] [place] [address] Dr. Magali Phillips HYALINE CAST RARE Normal [facility] Comment on above: Performed By: #### E RUBere, UMICRO #### [facility] [address] [place] [address] Dr. Magali Phillips MUCOUS NONE SEEN Normal NONE SEEN [facility] Comment on above: Performed By: #### Mulu ESCOBEDO UMICRO #### [facility] [address] [place] [address] Dr. Magali Phillips RBC 5-10 Abnormal 0-2 [facility] Comment on above: Performed By: #### Mulu ESCOBEDO UMICRO #### [facility] [address] [place] [address] Dr. Magali Phillips TRICH SEEN Abnormal NONE SEEN [facility] Comment on above: Performed By: #### Mulu ESCOBEDO UMICRO #### [facility] [address] [place] [address] Dr. Magali Phillips WBC 5-10 Abnormal NONE SEEN [facility] Comment on above: Performed By: #### E RUBere, UMICRO #### [facility] [address] [place] [address] Dr. Magali Phillips Urinalysis - AUTOMATEDon Appearance (U) clear [employer] Other Bilirubin Ql (U) Negative [employer] Other Color (U) yellow [employer] Other Glucose Ql (U) Negative [employer] Other Hemoglobin Ql (U) Negative [employer] Other Ketones Ql (U) Negative [employer] Other Leukocyte esterase Test strip Ql (U) trace [employer] Other Nitrite Ql (U) Negative [employer] Other pH (U) 6.5 [pH] [employer] Other Protein Ql (U) Negative [employer] Other Specific gravity (U) [Rel density] 1.025 [employer] Other Urobilinogen (U) [Mass/Vol] 1.0 mg/dL [employer] Other Urinalysis - AUTOMATED [employer] Other Urine Cultureon 07-07-2022 Bacteria identified Cx Nom (U) [employer] Other Automated erythrocytes count in urine sediment (number/area)Ordered By: Michelle Arthur on 07-04-2022 RBC Auto (Urine sed) [#/Area] 3-4 [HPF] 0-4 [facility] Automated leukocytes count i n urine sediment (number/area)Ordered By: Michelle Arthur on 07-04-2022 WBC Auto (Urine sed) [#/Area] 5-9 [HPF] 0-4 [facility] Bilirubin Test strip Ql (U)O rdered By: Michelle Arthur on 07-04-2022 Bilirubin Ql (U) Negative Negative [facility] Color Auto (U)Ordered By: Joanne Arthur on 07-04-2022 Color (U) Yellow Yellow [facility] HCG ( test) IA.rapi d Ql (U)Ordered By: Michelle Arthur on 07-04-2022 HCG ( test) Ql (U) Negative [facility] Ketones Auto test strip (U) [Mass/Vol]Ordered By: Michelle Arthur on 07-04-2022 Ketones (U) [Mass/Vol] Negative Negative [facility] Laboratory - UrinalysisOrder ed By: Michelle Arthur on 07-04-2022 Hyaline casts LM Ql (Urine sed) 0-8 [LPF] 0-8 [facility] Nitrite Test strip Ql (U)Ord ered By: Michelle Arthur on 07-04-2022 Nitrite Ql (U) Negative Negative [facility] Protein Auto test strip (U) [Mass/Vol]Ordered By: Michelle Arthur on 07-04-2022 Protein (U) [Mass/Vol] Negative Negative [facility] Specific gravity Auto test s trip (U) [Rel density]Ordered By: Michelle Arthur on 07-04-2022 Specific gravity (U) [Rel density] 1.016 1.001-1.030 [facility] Squamous epithelial cells de tection in urine sediment by light microscopyOrdered By: Michelle Arthur on 07-04-2022 Epithelial cells.squamous LM Ql (Urine sed) 1-2 [HPF] 0-2 [facility] Urine bacteria detection by automated methodOrdered By: Michelle Arthur on 07-04-2022 Bacteria Auto Ql (U) None seen None Seen [facility] Urine clarity by refractomet ry automatedOrdered By: Michelle Arthur on 07-04-2022 Clarity Refractometry automated (U) Clear Clear [facility] Urine culture routineOrdered By: Michelle Arthur on 07-04-2022 Bacteria identified Cx Nom (U) 2 Days [facility] Urine glucose measurement by automated test strip (mass/volume)Ordered By: Michelle Arthur on 07-04-2022 Glucose Auto test strip (U) [Mass/Vol] Normal mg/dL Normal [facility] Urine hemoglobin detection b y automated test stripOrdered By: Michelle Bullimore on 07-04-2022 Hemoglobin Auto test strip Ql (U) Negative Negative [facility] Urine leukocyte esterase det ection by automated test stripOrdered By: Michelle Bullimore on 07-04-2022 Leukocyte esterase Auto test strip Ql (U) 2+ Negative [facility] Urobilinogen Auto test strip (U) [Mass/Vol]Ordered By: Michelle Bullimore on 07-04-2022 Urobilinogen (U) [Mass/Vol] Normal mg/dL Normal [facility] pH Auto test strip (U)Ordere d By: Michelle Bullimore on 07-04-2022 pH (U) 7.0 [pH] 5.0-9.0 [facility] COVID Quick Testingon 2020 Result Negative [employer] Other Vital Signs Date Time Vital Sign Value Performing Clinician Facility 12-19-2024 09:37-0400 Body mass index (BMI) [Ratio] 53.85 kg/m2 Wesley Visci DO Work Phone: [facility] 12-19-2024 09:37-0400 Body weight 137.89 kg Wesley Visci DO Work Phone: [facility] 12-19-2024 09:37-0400 Diastolic blood pressure 72 mm[Hg] Wesley Visci DO Work Phone: [facility] 12-19-2024 09:37-0400 Systolic blood pressure 110 mm[Hg] Wesley Visci DO Work Phone: [facility] 11-07-2024 11:53-0400 Body mass index (BMI) [Ratio] 53.32 kg/m2 Ira ELMORE Work Phone: [facility] 11-07-2024 11:53-0400 Body weight 136.53 kg Ira ELMORE Work Phone: [facility] 11-07-2024 11:53-0400 Diastolic blood pressure 68 mm[Hg] Ira ELMORE Work Phone: [facility] 11-07-2024 11:53-0400 Systolic blood pressure 110 mm[Hg] Ira ELMORE Work Phone: [facility] 02-02-2024 09:22-0400 Body height 157.48 cm [facility] 02-02-2024 [id number] Body mass index (BMI) [Ratio] 49.6 kg/m2 [facility] 02-02-2024 09:22-0400 Body temperature 98.1 [degF] [facility] 02-02-2024 09:22-0400 Body weight 123.09 kg [facility] 02-02-2024 09:22-0400 Heart rate 81 /min [facility] 02-02-2024 09:-0400 Respiratory rate 18 /min [facility] 02-02-2024 09:22-0400 SaO2% (BldA) [Mass fraction] 99 % [facility] 01-20-2024 12:01-0400 Body height 157.48 cm [facility] 01-20-2024 12:01-0400 Body mass index (BMI) [Ratio] 48.9 kg/m2 [facility] 01-20-2024 12:01-0400 Body temperature 98.3 [degF] [facility] 01-20-2024 12:01-0400 Body weight 121.27 kg [facility] 01-20-2024 12:01-0400 Heart rate 107 /min [facility] 01-20-2024 12:01-0400 Respiratory rate 18 /min [facility] 01-20-2024 12:01-0400 SaO2% (BldA) [Mass fraction] 99 % [facility] 11-13-2023 10:26-0400 Body height 157.48 cm [facility] 11-13-2023 10:26-0400 Body mass index (BMI) [Ratio] 49 kg/m2 [facility] 11-13-2023 10:26-0400 Body temperature 97.8 [degF] [facility] 11-13-2023 10:26-0400 Body weight 121.56 kg [facility] 11-13-2023 10:26-0400 Heart rate 82 /min [facility] 11-13-2023 10:26-0400 SaO2% (BldA) [Mass fraction] 98 % [facility] 09-16-2023 09:45-0400 Body height 157.48 cm [facility] 09-16-2023 09:45-0400 Body mass index (BMI) [Ratio] 48.4 kg/m2 [facility] 09-16-2023 09:45-0400 Body temperature 98.6 [degF] [facility] 09-16-2023 09:45-0400 Body weight 120.25 kg [facility] 09-16-2023 09:45-0400 Heart rate 51 /min [facility] 09-16-2023 09:45-0400 Respiratory rate 18 /min [facility] 09-16-2023 09:45-0400 SaO2% (BldA) [Mass fraction] 98 % [facility] 03-03-2023 10:45-0400 Heart rate 67 /min Shelly Ly DO Work Phone: [facility] 03-03-2023 10:45-0400 Respiratory rate 12 /min Shelly Ly DO Work Phone: [facility] 03-03-2023 10:45-0400 SaO2% (BldA) [Mass fraction] 100 % Shelly Ly DO Work Phone: [facility] 03-03-2023 10:40-0400 Diastolic blood pressure 72 mm[Hg] Shelly Ly DO Work Phone: [facility] 03-03-2023 10:40-0400 Systolic blood pressure 115 mm[Hg] Shelly Ly DO Work Phone: [facility] 02-04-2023 10:25-0400 Body height 162.[address] Work Phone: [facility] 02-04-2023 10:25-0400 Body weight 113.[address] [place] [address] Work Phone: [facility] 01-19-2023 09:24-0400 Body height 162.2 cm Allie Neo [employer] Work Phone: [facility] 01-19-2023 09:24-0400 Body weight 114.92 kg Allie Neo [employer] Work Phone: [facility] 01-19-2023 09:24-0400 Diastolic blood pressure 53 mm[Hg] Allie Neo [employer] Work Phone: [facility] 01-19-2023 09:24-0400 Heart rate 84 /min Allie Neo [employer] Work Phone: [facility] 01-19-2023 09:24-0400 Systolic blood pressure 111 mm[Hg] Allie Neo [employer]KN[employer] SH[employer]ENER Work Phone: [facility] 07-07-2022 17:00-0500 Body height 160.02 cm Radhika Enrique Other [employer] Other 07-07-2022 17:00-0500 Body mass index (BMI) [Ratio] 48.35 kg/m2 Radhika Enrique Other [employer] Other 07-07-2022 17:00-0500 Body temperature 98 [degF] Radhika Enrique Other [employer] Other 07-07-2022 17:00-0500 Body weight 123.83 kg Radhika Enrique Other [employer] Other 07-07-2022 17:00-0500 Diastolic blood pressure 60 mm[Hg] Radhika Enrique Other [employer] Other 07-07-2022 17:00-0500 Respiratory rate 18 /min Radhika Enrique Other [employer] Other 07-07-2022 17:00-0500 SaO2% (BldA) [Mass fraction] 99 % Radhika Jovelmond Other [employer] Other 07-07-2022 17:00-0500 Systolic blood pressure 111 mm[Hg] Radhika Iva Other [employer] [facility] [employer] Other 07-04-2022 11:16-0500 Body height 160.02 cm [facility] 07-04-2022 11:16-0500 Body temperature 97.8 [degF] [facility] 07-04-2022 11:16-0500 Body weight 124 kg [facility] 07-04-2022 11:16-0500 Diastolic blood pressure 71 mm[Hg] [facility] 07-04-2022 11:16-0500 Heart rate 75 /min [facility] 07-04-2022 11:16-0500 Respiratory rate 22 /min [facility] 07-04-2022 11:16-0500 SaO2% (BldA) [Mass fraction] 100 % [facility] 07-04-2022 11:16-0500 Systolic blood pressure 118 mm[Hg] [facility] 01-27-2022 15:10-0400 Body height 160.02 cm Radhika Iva Other [employer] [facility] [employer] Other 01-27-2022 15:10-0400 Body mass index (BMI) [Ratio] 46.05 kg/m2 Radhika Iva Other [employer] Other 01-27-2022 15:10-0400 Body temperature 98 [degF] Radhika Iva Other [employer] Other 01-27-2022 15:10-0400 Body weight 117.94 kg Radhika Iva Other [employer] Other 01-27-2022 15:10-0400 Diastolic blood pressure 63 mm[Hg] Radhika Enrique Other [employer] Other 01-27-2022 15:10-0400 Respiratory rate 16 /min Radhika Enrique Other [employer] Other 01-27-2022 15:10-0400 SaO2% (BldA) [Mass fraction] 100 % Radhika Enrique Other [employer] Other 01-27-2022 15:10-0400 Systolic blood pressure 100 mm[Hg] Radhika Enrique Other [employer] Other 11-11-2021 17:30-0400 Body height 160.02 cm Maria R Naif Other [employer] Other 11-11-2021 17:30-0400 Body mass index (BMI) [Ratio] 45.52 kg/m2 Maria R Naif Other [employer] Other 11-11-2021 17:30-0400 Body temperature 98.2 [degF] Maria R Disla Other [employer] Other 11-11-2021 17:30-0400 Body weight 116.58 kg Maria R Naif Other [employer] Other 11-11-2021 17:30-0400 Diastolic blood pressure 70 mm[Hg] Maria R Disla Other [employer] Other 11-11-2021 17:30-0400 Respiratory rate 16 /min Maria R Disla Other [employer] Other 11-11-2021 17:30-0400 SaO2% (BldA) [Mass fraction] 99 % Maria R Disla Other [employer] Other 11-11-2021 17:30-0400 Systolic blood pressure 114 mm[Hg] Maria R Disla Other [employer] List Other 10-14-2021 12:00-0400 Body height 160.02 cm Maria R Disla Other [employer] Other 10-14-2021 12:00-0400 Body mass index (BMI) [Ratio] 46.58 kg/m2 Maria R Disla Other [employer] Other 10-14-2021 12:00-0400 Body temperature 98.2 [degF] Maria R Disla Other [employer] Other 10-14-2021 12:00-0400 Body weight 119.3 kg Maria R Disla Other [employer] Other 10-14-2021 12:00-0400 Diastolic blood pressure 68 mm[Hg] Maria R Disla Other [employer] Other 10-14-2021 12:00-0400 Respiratory rate 16 /min Maria R Disla Other [employer] Other 10-14-2021 12:00-0400 SaO2% (BldA) [Mass fraction] 98 % Maria R Disla Other [employer] Other 10-14-2021 12:00-0400 Systolic blood pressure 106 mm[Hg] Maria R Disla Other [employer] Other 03-30-2021 14:45-0400 Body temperature 96.4 [degF] Maria R Disla Other [employer] Other 03-30-2021 14:45-0400 SaO2% (BldA) [Mass fraction] 98 % Maria R Vacaault Other [employer] Other 03-07-2021 16:55-0400 Body height 160.02 cm Maria R Vacaault Other [employer] Other 03-07-2021 16:55-0400 Body mass index (BMI) [Ratio] 47.11 kg/m2 Maria R Vacaault Other [employer] Other 03-07-2021 16:55-0400 Body temperature 97.6 [degF] Maria R Disla Other [employer] Other 03-07-2021 16:55-0400 Body weight 120.66 kg Maria R Vacaault Other [employer] Other 03-07-2021 16:55-0400 Diastolic blood pressure 71 mm[Hg] Maria R Vacaault Other [employer] Other 03-07-2021 16:55-0400 Respiratory rate 18 /min Maria R Vacaault Other [employer] Other 03-07-2021 16:55-0400 SaO2% (BldA) [Mass fraction] 98 % Maria R Naif Other [employer] Other 03-07-2021 16:55-0400 Systolic blood pressure 106 mm[Hg] Maria R Disla Other [employer] Other 02-26-2021 14:00-0400 Body height 160.02 cm Maria R Disla Other [employer] Other 02-26-2021 14:00-0400 Body mass index (BMI) [Ratio] 46.05 kg/m2 Maria R Disla Other [employer] Other 02-26-2021 14:00-0400 Body temperature 97.5 [degF] Maria R Disla Other [employer] Other 02-26-2021 14:00-0400 Body weight 117.94 kg Maria R Disla Other [employer] Other 02-26-2021 14:00-0400 SaO2% (BldA) [Mass fraction] 99 % Maria R Disla Other [employer] Other Encounters Encounter Date Encounter Type Care Provider Facility Start: 01-19-2025 End: 01-19-2025 Bamboo flowsheet Rodrigo Thomas DO Work Phone: [facility] Start: 01-19-2025 End: 01-19-2025 Bamboo flowsheet Rodrigo Thomas DO Work Phone: [facility] Start: 12-19-2024 End: 12-19-2024 ambulatory IRA JENSEN Not Available Start: 12-19-2024 End: 12-19-2024 Office outpatient visit 25 minutes Wesley Alaina Browning DO Work Phone: [facility] Comment on above: GA: 8w0d Start: 12-19-2024 End: 12-19-2024 ambulatory WESLEY BROWNING Not Available Start: 12-02-2024 End: 12-02-2024 flow sheet [facility] Nurse [facility] Comment on above: GA: 10w5d Start: 12-02-2024 End: 12-02-2024 ambulatory IRA JENSEN Not Available Start: 11-07-2024 End: 11-07-2024 Bamboo flowsheet Ira Jensen PA Work Phone: [facility] Start: 11-07-2024 End: 11-10-2024 Bamboo flowsheet Ira ELMORE Work Phone: [facility] Start: 11-07-2024 End: 11-10-2024 Clinisync Result Encounter Ira ELMORE Work Phone: [facility] External Department Unsolicited Start: 11-07-2024 End: 11-07-2024 Patient encounter procedure Ira ELMORE Work Phone: [facility] Start: 11-07-2024 End: 11-07-2024 Periodic preventive med est patient 18-39 yrs Ira ELMORE Work Phone: [facility] Comment on above: Well woman exam with routine gynecological exam Start: 11-07-2024 End: 11-07-2024 ambulatory IRA JENSEN Not Available Start: 03-22-2024 End: 03-22-2024 ambulatory MARIA R DISLA [facility] Start: 02-02-2024 End: 02-02-2024 Departed Referred [facility] [place] Work Phone: Start: 02-02-2024 End: 02-02-2024 ambulatory NON STAFF [facility] Work Phone: Start: 02-02-2024 End: 02-02-2024 Patient encounter procedure [facility] Work Phone: Start: 01-20-2024 End: 01-20-2024 ambulatory NON STAFF [facility] Work Phone: Start: 01-20-2024 End: 01-20-2024 Patient encounter procedure [facility] Work Phone: Start: 11-13-2023 End: 11-13-2023 ambulatory NON STAFF [facility] Work Phone: Start: 11-13-2023 End: 11-13-2023 Patient encounter procedure [facility] Work Phone: Start: 09-16-2023 End: 09-16-2023 ambulatory [facility] Work Phone: Start: 09-16-2023 End: 09-16-2023 Patient encounter procedure [facility] Work Phone: Start: 06-30-2023 End: 06-30-2023 ambulatory MARZENA MARTINEZ Facility:[facility] Start: 04-06-2023 End: 04-06-[address] [facility] Start: 03-12-2023 ambulatory ALLIE LARSON Facility: [facility] Start: 03-12-2023 End: 03-12-2023 Preprocedural examination done Ultra 2 Work Phone: [facility] Start: 03-12-2023 End: 03-12-2023 Subsequent hospital visit by physician [facility] Work Phone: [facility] Radiology Ultrasound Comment on above: Pre-op evaluation [Z 01.818] Start: 03-03-2023 End: 03-03-2023 ambulatory SHELLY PARSONS Facility:[facility] Start: 03-03-2023 End: 03-03-2023 Subsequent hospital visit by physician Shelly Parsons DO Work Phone: Ambulatory Surgery Comment on above: Class 3 severe obesi ty with serious comorbidity and body mass index (BMI) of 40.0 to 44.9 in adult, unspecified obesity type (HCC) [E66.01, Z68.41] Start: 02-25-2023 ambulatory Nurse Janis [facility] Work Phone: Gastroenterology Comment on above: EGD instructions Start: 02-25-2023 E-mail encounter bam m caregiver Nurse Janis [facility] Work Phone: [facility] Start: 02-11-2023 End: 02-12-2023 ambulatory [facility] Facility:[facility] Start: 02-11-2023 End: 02-11-2023 [facility] Facility:[facility] Start: 02-11-2023 Encounter for other preprocedural examination SHELLY PARSONS [facility] Start: 02-11-2023 End: 02-11-2023 Patient encounter procedure Nurse Card [facility] Rej Work Phone: Cardiology Comment on above: Pre-op evaluation; Class 3 severe obesity with serious comorbidity and body mass index (BMI) of 40.0 to 44.9 in adult, unspecified obesity type (HCC) Start: 02-11-2023 End: 02-11-2023 Preprocedural examination done Nurse Jamin Work Phone: [facility] Start: 02-10-2023 Telephone encounter Cece Day [facility] Comment on above: Smoking Cessation Start: 02-04-2023 End: 02-04-2023 ambulatory SASHA XIE Facility:[facility] Start: 02-04-2023 End: 02-04-[address] Work Phone: Nutrition Comment on above: Body mass index (BMI ) 40.0-44.9, adult (HCC) (Primary Dx); Dietary counseling and surveillance Start: 02-04-2023 End: 02-04-2023 Telemedicine consultation with patient Sasha Xie RD Work Phone: [facility] Start: 02-01-2023 Chart [facility]ing [facility] Work Phone: Neurology Start: 01-30-2023 ambulatory [facility] Facility: [facility] Start: 01-30-2023 Encounter for other preprocedural examination [facility] Start: 01-30-2023 End: 01-30-2023 ambulatory NORBERTO MALONE Facility:[facility] Start: 01-30-2023 End: 01-30-2023 Preprocedural examination done [facility] Work Phone: [facility] Start: 01-30-2023 End: 01-30-2023 Subsequent hospital visit by physician [facility] Work Phone: [facility] Radiology General Comment on above: Pre-op evaluation [Z 01.818] Start: 01-19-2023 End: 01-20-2023 ambulatory [facility] Facility:[facility] Start: 01-19-2023 End: 01-19-2023 Patient encounter procedure Allie Larson [employer].KNIFE SHARPENER Work Phone: General Surgery Comment on above: Pre-op evaluation (P rimary Dx); Class 3 severe obesity with serious comorbidity and body mass index (BMI) of 40.0 to 44.9 in adult, unspecified obesity type (HCC); Vapes nicotine containing substance; Marijuana smoker Start: 01-19-2023 End: 01-19-2023 Preprocedural examination done Allie Neo [employer]S ADVIS[employer].KNIFE SHARPENER Work Phone: [facility] Work Phone: Start: 09-23-2022 End: 09-23-2022 ambulatory MARIA R DISLA Facility:[facility] Start: 09-20-2022 End: 09-20-2022 ambulatory MARIA R NAIF Facility:[facility] Start: 07-07-2022 End: 07-07-2022 Departed Referred [facility] [place] Work Phone: Start: 07-07-2022 End: 07-07-2022 ambulatory NON STAFF [facility] Work Phone: Start: 07-07-2022 Office outpatient vi sit 25 minutes Radhika Enrique [facility] Start: 07-04-2022 End: 07-04-2022 Emergency department patient visit [facility] Work Phone: Start: 06-17-2022 End: 06-17-2022 ambulatory Maria R Naif Other [employer] Other Start: 06-17-2022 Telephone encounter Maria R Breaul t [facility] Start: 05-01-2022 End: 05-01-2022 ambulatory MARIA R NAIF Facility:[facility] Start: 03-24-2022 End: 03-24-2022 ambulatory Maria R Naif Other [employer] Other Start: 03-24-2022 Telephone encounter Maria R Breaul t [facility] Start: 01-27-2022 End: 01-27-2022 ambulatory Radhika Iva Other [facility] Other Start: 01-27-2022 Office outpatient vi sit 15 minutes Radhika Iva [facility] Start: 01-14-2022 End: 01-14-2022 ambulatory MARIA R NAIF Facility:[facility] Start: 11-26-2021 End: 11-26-2021 ambulatory Maria R Naif Other [employer] Other Start: 11-26-2021 Office outpatient vi sit 15 minutes Maria R Naif [facility] Start: 11-11-2021 End: 11-11-2021 ambulatory Maria R Naif Other [employer] Other Start: 11-11-2021 Office outpatient vi sit 25 minutes Maria R Naif [facility] Start: 10-28-2021 End: 10-28-2021 ambulatory MARIA R NAIF Facility:[facility] Start: 10-14-2021 End: 10-14-2021 ambulatory Maria R Naif Other [employer] Other Start: 10-14-2021 Office outpatient vi sit 15 minutes Maria R Naif [facility] Start: 08-18-2021 End: 08-18-2021 ambulatory Maria Remily Disla Other [employer] Other Start: 08-18-2021 Telephone encounter Maria R Brenickl t [facility] Start: 06-21-2021 End: 06-21-2021 ambulatory Radhika Enrique Other [employer] Other Start: 06-21-2021 Office outpatient vi sit 5 minutes Radhika Iva [facility] Start: 05-28-2021 End: 05-28-2021 ambulatory Maria Remily Disla Other [employer] Other Start: 05-28-2021 Telephone encounter Maria R Breaul t [facility] Start: 04-10-2021 End: 04-10-2021 ambulatory Maria Remily Disla Other [employer] Other Start: 04-10-2021 Telephone encounter Maria R Breaul t [facility] Start: 03-30-2021 End: 03-30-2021 ambulatory Maria Remily Disla Other [employer] Other Start: 03-30-2021 Office outpatient vi sit 15 minutes Maria R Naif [facility] Start: 03-07-2021 Office outpatient vi sit 15 minutes Maria R Naif [facility] Start: 02-26-2021 Office outpatient vi sit 15 minutes Maria R Naif [facility] Procedures Date Procedure Procedure Detail Performing Clinician Start: 12-19-2024 Chlamydia culture Wesley Browning DO Work Phone: Start: 12-19-2024 Iadna chlamydia trachomatis amplified probe tq Wesley Browning DO Work Phone: Start: 12-19-2024 Urnls dip stick/tablet rgnt non-auto w/o micrscp Wesley Browning DO Work Phone: Start: 11-07-2024 IGP,APTIMA HPV,AGE GDLN Ira Camial PA Work Phone: Start: 01-20-2024 Quick Strep (POC) Start: 11-13-2023 X-ray of right ankle Start: 11-13-2023 X-ray of right foot Start: 03-12-2023 Us abdominal real time w/image limited Allie Larson APRN.KNIFE SHARPENER Work Phone: Start: 03-03-2023 Level iv surg pathology gross&microscopic exam Shelly Parsons DO Work Phone: Start: 03-03-2023 Esophagogastroduodenoscopy transoral diagnostic Norberto Malone MD Work Phone: Start: 02-11-2023 Ecg routine ecg w/least 12 lds i&r only Allie Larson APRN.KNIFE SHARPENER Work Phone: Start: 01-30-2023 Radiologic exam chest 2 views Allie melo [employer] ADVISOR.KNIFE SHARPENER Work Phone: Start: 07-04-2022 Urine culture Plan of Treatment Date Care Activity Detail Author Start: 07-07-2032 Urine microalbumin profile [facility] Start: 01-23-2025 Influenza vaccination N [facility] Start: 01-19-2025 End: 01-19-2025 ambulatory 01/19/2025 8:50 AM EDT Initial [facility] [address] [place] [address] Rodrigo Gumzan DO [address] [place], [place] [id number] Arrived [facility] Comment on above: Arrived Start: 01-16-2025 End: 01-16-2025 Patient encounter procedure 01/16/2025 11:45 AM EDT Routine [facility] [address] [place] [address] Wesley Browning, DO [address] [place] [address] [facility] [place] [facility] Start: 12-19-2024 End: 12-19-2024 ambulatory 12/19/2024 9:15 AM EDT Initial [facility] [address] [place] [address] Wesley Browning, DO [address] [place] [address] [facility] Start: 12-02-2024 End: 12-02-2025 Bacteria identified in Urine by Culture Urine culture Microbiology Routine Encounter for supervision of normal first in first trimester ([facility]) Expected: 12/02/2024, Expires: 12/02/2025 [facility] Comment on above: Expected: 12/02/2024 , Expires: 12/02/2025 Start: 12-02-2024 End: 12-02-2025 BEACON CARRIER SCREEN;14 GENES BEACON CARRIER SCREEN;14 GENES Lab Routine Screening for genetic disease carrier status Expected: 12/02/2024 (Approximate), Expires: 12/02/2025 [facility] Comment on above: Expected: 12/02/2024 (Approximate), Expires: 12/02/2025 Start: 12-02-2024 End: 12-02-2025 Blood type and Indirect antibody screen panel - Blood Type and screen Lab Routine Encounter for supervision of normal first in first trimester ([facility]) Expected: 12/02/2024, Expires: 12/02/2025 [facility] Comment on above: Expected: 12/02/2024 , Expires: 12/02/2025 Start: 12-02-2024 End: 12-02-2025 CBC W Auto Differential panel - Blood CBC and differential Lab Routine Encounter for supervision of normal first in first trimester ([facility]) Expected: 12/02/2024, Expires: 12/02/2025 [facility] Comment on above: Expected: 12/02/2024 , Expires: 12/02/2025 Start: 12-02-2024 End: 07-11-2026 DRUG SCREEN 17 W/CONF, UR DRUG SCREEN 17 W/CONF, UR Lab Routine Encounter for drug screening Expected: 12/02/2024, Expires: 12/02/2025 [facility] Comment on above: Expected: 12/02/2024 , Expires: 12/02/2025 Start: 12-02-2024 End: 12-02-2025 Hepatitis B virus surface Ag [Presence] in Serum or Plasma by Immunoassay Hepatitis B surface antigen Lab Routine Encounter for supervision of normal first in first trimester ([facility]) Expected: 12/02/2024, Expires: 12/02/2025 [facility] Comment on above: Expected: 12/02/2024 , Expires: 12/02/2025 Start: 12-02-2024 End: 12-02-2025 Hepatitis C virus Ab [Presence] in Serum or Plasma by Immunoassay Hepatitis C antibody Lab Routine Encounter for supervision of normal first in first trimester ([facility]) Expected: 12/02/2024, Expires: 12/02/2025 [facility] Comment on above: Expected: 12/02/2024 , Expires: 12/02/2025 Start: 12-02-2024 End: 12-02-2025 HIV-2 antigen assay HIV-2 antigen Lab Routine Encounter for supervision of normal first in first trimester ([facility]) Expected: 12/02/2024, Expires: 12/02/2025 [facility] Comment on above: Expected: 12/02/2024 , Expires: 12/02/2025 Start: 12-02-2024 End: 12-02-2025 [id number] PLUS Core+SCA [id number] PLUS Core+SCA Lab Routine Encounter for screening for chromosomal anomalies ([facility]) Expected: 12/02/2024 (Approximate), Expires: 12/02/2025 [facility] Comment on above: Expected: 12/02/2024 (Approximate), Expires: 12/02/2025 Start: 12-02-2024 End: 12-02-2025 Rpr (dx) w/refl titer and confirmatory testing Rpr (dx) w/refl titer and confirmatory testing Lab Routine Encounter for supervision of normal first in first trimester ([facility]) Expected: 12/02/2024, Expires: 12/02/2025 [facility] Comment on above: Expected: 12/02/2024 , Expires: 12/02/2025 Start: 12-02-2024 End: 12-02-2025 Rubella antibody, IgG Rubella antibody, IgG Lab Routine Encounter for supervision of normal first in first trimester ([facility]) Expected: 12/02/2024, Expires: 12/02/2025 [facility] Comment on above: Expected: 12/02/2024 , Expires: 12/02/2025 Start: 12-02-2024 End: 12-02-2025 Urinalysis complete panel - Urine Urinalysis with microscopic Lab Routine Encounter for supervision of normal first in first trimester ([facility]) Expected: 12/02/2024, Expires: 12/02/2025 [facility] Work Phone: Comment on above: Expected: 12/02/2024 , Expires: 12/02/2025 Start: 11-07-2024 End: 11-07-2024 Patient encounter procedure 11/07/2024 11:00 AM EDT Office Visit [facility] [address] [place] [address] Ira Jensen PA [address] [place] [address] Arrived [facility] Comment on above: Arrived Start: 02-02-2024 [facility] Start: 01-24-2024 Covid-19 Vaccine ( season) Covid-19 Vaccine ( season) [facility] Start: 01-24-2024 Influenza vaccination Influenza Vacc ine (#1) [facility] Start: 01-23-2023 Influenza vaccination C [facility] Start: 01-19-2023 End: 03-21-2023 25-hydroxyvitamin D3 [Mass/volume] in Serum or Plasma VITAMIN D 25 HYDROXY Lab Routine Pre-op evaluation Class 3 severe obesity with serious comorbidity and body mass index (BMI) of 40.0 to 44.9 in adult, unspecified obesity type (HCC) Expected: 01/19/2023, Expires: 03/21/2023 [facility] Work Phone: Comment on above: Expected: 01/19/2023 , Expires: 03/21/2023 Start: 01-19-2023 End: 03-21-2023 CBC W Auto Differential panel - Blood CBC + DIFF Lab Routine Pre-op evaluation Class 3 severe obesity with serious comorbidity and body mass index (BMI) of 40.0 to 44.9 in adult, unspecified obesity type (HCC) Expected: 01/19/2023, Expires: 03/21/2023 [facility] Work Phone: Comment on above: Expected: 01/19/2023 , Expires: 03/21/2023 Start: 01-19-2023 End: 03-21-2023 Cobalamin (Vitamin B12) [Mass/volume] in Serum or Plasma VITAMIN B12 BLOOD Lab Routine Pre-op evaluation Class 3 severe obesity with serious comorbidity and body mass index (BMI) of 40.0 to 44.9 in adult, unspecified obesity type (HCC) Expected: 01/19/2023, Expires: 03/21/2023 [facility] Work Phone: Comment on above: Expected: 01/19/2023 , Expires: 03/21/2023 Start: 01-19-2023 End: 03-21-2023 Comprehensive metabolic 2000 panel - Serum or Plasma COMP METABOLIC PANEL Lab Routine Pre-op evaluation Class 3 severe obesity with serious comorbidity and body mass index (BMI) of 40.0 to 44.9 in adult, unspecified obesity type (HCC) Expected: 01/19/2023, Expires: 03/21/2023 [facility] Work Phone: Comment on above: Expected: 01/19/2023 , Expires: 03/21/2023 Start: 01-19-2023 End: 03-21-2023 Ferritin [Mass/volume] in Serum or Plasma FERRITIN BLD Lab Routine Pre-op evaluation Class 3 severe obesity with serious comorbidity and body mass index (BMI) of 40.0 to 44.9 in adult, unspecified obesity type (HCC) Expected: 01/19/2023, Expires: 03/21/2023 [facility] Work Phone: Comment on above: Expected: 01/19/2023 , Expires: 03/21/2023 Start: 01-19-2023 End: 03-21-2023 Folate [Mass/volume] in Serum or Plasma FOLATE SERUM Lab Routine Pre-op evaluation Class 3 severe obesity with serious comorbidity and body mass index (BMI) of 40.0 to 44.9 in adult, unspecified obesity type (HCC) Expected: 01/19/2023, Expires: 03/21/2023 [facility] Work Phone: Comment on above: Expected: 01/19/2023 , Expires: 03/21/2023 Start: 01-19-2023 End: 03-21-2023 Hemoglobin A1c in Blood HGB A1C Lab Routine Pre-op evaluation Class 3 severe obesity with serious comorbidity and body mass index (BMI) of 40.0 to 44.9 in adult, unspecified obesity type (HCC) Expected: 01/19/2023, Expires: 03/21/2023 [facility] Work Phone: Comment on above: Expected: 01/19/2023 , Expires: 03/21/2023 Start: 01-19-2023 End: 03-21-2023 Iron and Iron binding capacity panel - Serum or Plasma IRON + TIBC Lab Routine Pre-op evaluation Class 3 severe obesity with serious comorbidity and body mass index (BMI) of 40.0 to 44.9 in adult, unspecified obesity type (HCC) Expected: 01/19/2023, Expires: 03/21/2023 [facility] Work Phone: Comment on above: Expected: 01/19/2023 , Expires: 03/21/2023 Start: 01-19-2023 End: 03-21-2023 Lipid 1996 panel - Serum or Plasma LIPID PANEL BASIC Lab Routine Pre-op evaluation Class 3 severe obesity with serious comorbidity and body mass index (BMI) of 40.0 to 44.9 in adult, unspecified obesity type (HCC) Expected: 01/19/2023, Expires: 03/21/2023 [facility] Work Phone: Comment on above: Expected: 01/19/2023 , Expires: 03/21/2023 Start: 01-19-2023 End: 03-21-2023 Natriuretic peptide.B prohormone N-Terminal [Mass/volume] in Serum or Plasma NT PRO BNP Lab Routine Pre-op evaluation Class 3 severe obesity with serious comorbidity and body mass index (BMI) of 40.0 to 44.9 in adult, unspecified obesity type (HCC) Expected: 01/19/2023, Expires: 03/21/2023 [facility] Work Phone: Comment on above: Expected: 01/19/2023 , Expires: 03/21/2023 Start: 01-19-2023 End: 03-21-2023 NICOTINE & METAB, UR NICOTINE & METAB, UR Lab Routine Pre-op evaluation Class 3 severe obesity with serious comorbidity and body mass index (BMI) of 40.0 to 44.9 in adult, unspecified obesity type (HCC) Expected: 01/19/2023, Expires: 03/21/2023 [facility] Work Phone: Comment on above: Expected: 01/19/2023 , Expires: 03/21/2023 Start: 01-19-2023 End: 03-21-2023 Thyrotropin [Units/volume] in Serum or Plasma TSH BLD Lab Routine Pre-op evaluation Class 3 severe obesity with serious comorbidity and body mass index (BMI) of 40.0 to 44.9 in adult, unspecified obesity type (HCC) Expected: 01/19/2023, Expires: 03/21/2023 [facility] Work Phone: Comment on above: Expected: 01/19/2023 , Expires: 03/21/2023 Start: 01-19-2023 End: 03-21-2023 TOX SCREEN ROUT UR TOX SCREEN ROUT UR Lab Routine Pre-op evaluation Class 3 severe obesity with serious comorbidity and body mass index (BMI) of 40.0 to 44.9 in adult, unspecified obesity type (HCC) Expected: 01/19/2023, Expires: 03/21/2023 [facility] Work Phone: Comment on above: Expected: 01/19/2023 , Expires: 03/21/2023 Start: 01-19-2023 End: 03-21-2023 VITAMIN B1 (THIAMINE), WHOLE BLOOD VITAMIN B1 (THIAMINE), WHOLE BLOOD Lab Routine Pre-op evaluation Class 3 severe obesity with serious comorbidity and body mass index (BMI) of 40.0 to 44.9 in adult, unspecified obesity type (HCC) Expected: 01/19/2023, Expires: 03/21/2023 [facility] Work Phone: Comment on above: Expected: 01/19/2023 , Expires: 03/21/2023 Start: 07-07-2022 Bacteria identified in Urine by Culture [facility] Start: 2022 PAP TESTING PAP TESTING [facility] Start: 2022 Screening for malign ant neoplasm of cervix Cervical Cancer Screening [facility] Start: 2019 ANNUAL PCP TEAM CALENDER TENDER ELLEN DISEASE VISIT ANNUAL PCP TEAM CHRONIC DISEASE VISIT [facility] Start: 2019 CHLAMYDIA SCREENING (18-24) CHLAMYDIA SCREENING (18-24) [facility] Start: 2019 GC (GONORRHEA) SCREE KATIA (18-24) GC (GONORRHEA) SCREENING (18-24) [facility] Start: 2019 HEPATITIS C SCREENING HEPATITIS C [facility] Start: 2019 Hepatitis C screening Hepatitis C [facility] Start: 2019 HIV SCREENING HIV SCREENING [facility] Start: 2019 HIV screening HIV Screening [facility] Start: 2019 Screening for Chlamy melvin trachomatis Chlamydia Screening (18-24) [facility] Start: 2019 SPIROMETRY SPIROMETRY [facility] Start: 2017 Meningococcal B Vacc ine: Consider Based On Risk (1 of 2 - Patient Seeks Protection) Meningococcal B Vaccine: Consider Based On Risk (1 of 2 - Patient Seeks Protection) [facility] Start: 2017 MENINGOCOCCAL B: Consider based on risk (1 of 2 - Patient Seeks Protection) MENINGOCOCCAL B: Consider based on risk (1 of 2 - Patient Seeks Protection) [facility] Start: 2015 PEDS TO ADULT TRANSI TION ANNUAL ASSESSMENT PEDS TO ADULT TRANSITION ANNUAL ASSESSMENT [facility] Start: 2013 PEDS TO ADULT TRANSI TION INITIAL DISCUSSION PEDS TO ADULT TRANSITION INITIAL DISCUSSION [facility] Start: 2007 PNEUMOCOCCAL (1 - PCV) PNEUMOCOCCAL (1 - PCV) [facility] Start: 2007 Pneumococcal vaccination Pneum ococcal Vaccine (1 - PCV) [facility] Start: 2001 COVID-19 VACCINE (#1) COVID-19 VACCI NE (#1) [facility] Atopobium vaginae DN A [Presence] in Vaginal fluid by HANNY with probe detection [facility] Bacterial vaginosis associated bacterium 2 DNA [Presence] in Vaginal fluid by HANNY with probe detection [facility] Cytology Cervical or vaginal smear or scraping study Pap Smear Pathology and Cytology Routine Well woman exam with routine gynecological exam Ordered: 11/07/2024 [facility] Work Phone: Comment on above: Ordered: 11/07/2024 End: 01-20-2024 ECG COMPLETE ECG COMPLETE ECG Routine Pre-op evaluation Class 3 severe obesity with serious comorbidity and body mass index (BMI) of 40.0 to 44.9 in adult, unspecified obesity type (HCC) 1 Occurrences starting 01/19/2023 until 01/20/2024 [facility] Work Phone: Comment on above: 1 Occurrences starti ng 01/19/2023 until 01/20/2024 ECG COMPLETE ECG COMPLETE ECG Routine Pre-op evaluation Class 3 severe obesity with serious comorbidity and body mass index (BMI) of 40.0 to 44.9 in adult, unspecified obesity type (HCC) 02/11/2023 8:29 AM EDT [facility] Work Phone: End: 01-19-2024 HOME SLEEP APNEA TEST (HSAT) HOME SLEEP APNEA TEST (HSAT) Procedures Routine Pre-op evaluation Class 3 severe obesity with serious comorbidity and body mass index (BMI) of 40.0 to 44.9 in adult, unspecified obesity type (HCC) 1 Occurrences starting 01/19/2023 until 01/19/2024 [facility] Work Phone: Comment on above: 1 Occurrences starti ng 01/19/2023 until 01/19/2024 IGP,rfx Apt HPV ASCU,16/18,45 IGP,rfx Apt HPV ASCU,16/18,45 Lab Routine 13 weeks gestation of ([facility]) Screening for malignant neoplasm of cervix Ordered: 12/19/2024 [facility] Work Phone: Comment on above: Ordered: 12/19/2024 Megasphaera sp type 1 DNA [Presence] in Vaginal fluid by HANNY with probe detection [facility] Patient referral [facility] Work Phone: End: 02-18-2024 Radiologic exam chest 2 views XR CHEST 2V FRONTAL/LAT Radiology Routine Pre-op evaluation Class 3 severe obesity with serious comorbidity and body mass index (BMI) of 40.0 to 44.9 in adult, unspecified obesity type (HCC) 1 Occurrences starting 01/19/2023 until 02/18/2024 [facility] Work Phone: Comment on above: 1 Occurrences starti ng 01/19/2023 until 02/18/2024 End: 02-18-2024 US ABD RIGHT UPPER QUADRANT US ABD RIGHT UPPER QUADRANT Radiology Routine Pre-op evaluation Class 3 severe obesity with serious comorbidity and body mass index (BMI) of 40.0 to 44.9 in adult, unspecified obesity type (HCC) 1 Occurrences starting 01/19/2023 until 02/18/2024 [facility] Work Phone: Comment on above: 1 Occurrences starti ng 01/19/2023 until 02/18/2024 [facility] Immunizations Immunization Date Immunization Notes Care Provider Patty miramontes 07-07-2022 tetanus toxoid, redu himanshu diphtheria toxoid, and acellular pertussis vaccine, adsorbed Maria R Disla Other [facility] Work Phone: 04-07-2020 influenza, injectabl e, quadrivalent, contains preservative Allie Larson APRN.CNP Work Phone: [facility] Work Phone: 04-07-2020 influenza virus vacc ine, unspecified formulation [facility] 03-14-2019 influenza, injectabl e, quadrivalent, contains preservative Maria R Disla Other [facility] Work Phone: 03-14-2019 influenza, injectabl e, quadrivalent, preservative free [facility] 09-13-2018 meningococcal oligosaccharide (groups A, C, Y and W-135) diphtheria toxoid conjugate vaccine (MCV4O) Allie Larson AUTOMOTIVE PARTS ADVISOR.[facility] Work Phone: [facility] Work Phone: 02-21-2014 influenza, seasonal, injectable Allie Larson AUTOMOTIVE PARTS ADVISOR.[facility] Work Phone: [facility] Work Phone: 07-07-2013 hepatitis A vaccine, pediatric/adolescent dosage, 2 dose schedule Allie Larson AUTOMOTIVE PARTS ADVISOR.[facility] Work Phone: [facility] Work Phone: 07-07-2013 meningococcal polysaccharide (groups A, C, Y and W-135) diphtheria toxoid conjugate vaccine (MCV4P) Allie Larson AUTOMOTIVE PARTS ADVISOR.[facility] Work Phone: [facility] Work Phone: 07-07-2013 tetanus toxoid, redu himanshu diphtheria toxoid, and acellular pertussis vaccine, adsorbed Allie Larson AUTOMOTIVE PARTS ADVISOR.[facility] Work Phone: [facility] Work Phone: 03-16-2013 Human Papillomavirus 9-valent vaccine Allie Larson AUTOMOTIVE PARTS ADVISOR.[employer] Work Phone: [facility] Work Phone: 03-16-2013 influenza, injectabl e, quadrivalent, preservative free Allie Larson AUTOMOTIVE PARTS ADVISOR.[employer] Work Phone: [facility] Work Phone: 10-08-2011 Human Papillomavirus 9-valent vaccine Allie Larson AUTOMOTIVE PARTS ADVISOR.[employer] Work Phone: [facility] Work Phone: 07-03-2011 Human Papillomavirus 9-valent vaccine Allie Larson APRN.[employer] Work Phone: [facility] Work Phone: 03-01-2008 hepatitis A vaccine, pediatric/adolescent dosage, 2 dose schedule Allie Larson APRN.[employer] Work Phone: [facility] Work Phone: 03-01-2008 varicella virus vaccine Cammie Larson APRN.[employer] Work Phone: [facility] Work Phone: 05-20-2005 influenza, seasonal, injectable Allie Larson APRN.[employer] Work Phone: [facility] Work Phone: 04-11-2005 influenza, seasonal, injectable Allie Larson APRN.[employer] Work Phone: [facility] Work Phone: 01-16-2005 diphtheria, tetanus toxoids and acellular pertussis vaccine, 5 pertussis antigens Allie Larson APRN.[employer] Work Phone: [facility] Work Phone: 01-16-2005 measles, mumps and rubella virus vaccine Allie Larson APRN.[employer] Work Phone: [facility] Work Phone: 01-16-2005 poliovirus vaccine, inactivated Allie Larson APRN.[employer] Work Phone: [facility] Work Phone: 06-27-2002 diphtheria, tetanus toxoids and acellular pertussis vaccine Allie Larson APRN.[employer] Work Phone: [facility] Work Phone: 06-27-2002 haemophilus influenz ae type b vaccine, PRP-T conjugate Allie Larson APRN.[employer] Work Phone: [facility] Work Phone: 02-02-2002 measles, mumps and rubella virus vaccine Allie Larson APRN.[employer] Work Phone: [facility] Work Phone: 02-02-2002 varicella virus vaccine Cammie Larson APRN.[employer] Work Phone: [facility] Work Phone: 2001 diphtheria, tetanus toxoids and acellular pertussis vaccine, unspecified formulation Allie Larson AUTOMOTIVE PARTS ADVISOR.[facility] Work Phone: [facility] Work Phone: 2001 haemophilus influenz ae type b conjugate and Hepatitis B vaccine Allie Neo AUTOMOTIVE PARTS ADVISOR.[facility] Work Phone: [facility] Work Phone: 2001 poliovirus vaccine, inactivated Allie Larson AUTOMOTIVE PARTS ADVISOR.[facility] Work Phone: [facility] Work Phone: 2001 diphtheria, tetanus toxoids and acellular pertussis vaccine, unspecified formulation Allie Larson AUTOMOTIVE PARTS ADVISOR.[facility] Work Phone: [facility] Work Phone: 2001 haemophilus influenz ae type b conjugate and Hepatitis B vaccine Allie Neo AUTOMOTIVE PARTS ADVISOR.[facility] Work Phone: [facility] Work Phone: 2001 pneumococcal conjuga te vaccine, 7 valent Allie Larson AUTOMOTIVE PARTS ADVISOR.[facility] Work Phone: [facility] Work Phone: 2001 poliovirus vaccine, inactivated Allie Larson AUTOMOTIVE PARTS ADVISOR.[facility] Work Phone: [facility] Work Phone: 2001 diphtheria, tetanus toxoids and acellular pertussis vaccine, unspecified formulation Allie Larson AUTOMOTIVE PARTS ADVISOR.[facility] Work Phone: [facility] Work Phone: 2001 haemophilus influenz ae type b conjugate and Hepatitis B vaccine Allie Neo AUTOMOTIVE PARTS ADVISOR.[facility] Work Phone: [facility] Work Phone: 2001 pneumococcal conjuga te vaccine, 7 valent Allie Neo AUTOMOTIVE PARTS ADVISOR.[facility] Work Phone: [facility] Work Phone: 2001 poliovirus vaccine, inactivated Allie Neo AUTOMOTIVE PARTS ADVISOR.[facility] Work Phone: [facility] Work Phone: Payers Date Payer Category Payer Self-pay [id number] 2022 Medicaid [id number] 2001 Unknown [id number] 2.16.84 [id number] 2001 Unknown [id number] 2.16.84 [id number] 2001 Unknown [id number] 2.16.84 [id number] 2001 Unknown [id number] 2.16.84 [id number] 2001 Unknown [id number] 2.16.84 [id number] 2001 Unknown [id number] 2.16.8 [id number] 2001 Unknown [id number] 2.16.8 [id number] 2001 Unknown [id number] 2.16.8 [id number] 2001 Unknown [id number] 2.16.8 [id number] 2001 Unknown [id number] 2.16.8 [id number] 2001 Unknown [id number] 2.16.8 [id number] 1959 Medicaid [id number] 1959 Unknown [id number] 2.1 [id number] Medicaid [id number] Medicaid [id number] 2. [id number] Unknown [id number] 2.1 [id number] Unknown [id number] 2.16.8 [id number] Unknown [id number] 2.16.8 [id number] Social History Date Type Detail Facility Unknown if ever smoked [facility] [employer] Other Start: 01-19-2023 End: 12-19-2024 Sex Assigned At [facility] Other Start: 07-04-2022 End: 01-20-2024 Tobacco smoking status IDIS Smoker (finding) [facility] Start: 2001 Sex Assigned At Female [facility] Start: 01-19-2023 End: 12-02-2024 Tobacco smoking status [facility] Never smoked tobacco [facility] Work Phone: Start: 01-19-2023 End: 12-02-2024 Tobacco use and exposure Smokeless tobacco non-user [facility] Work Phone: Start: 01-19-2023 End: 03-03-2023 Alcohol intake Current drinker of alcohol (finding) [facility] Start: 01-19-2023 End: 12-19-2024 History of Social function [facility] National Score (1-10 0), lower number is lower risk 76 [facility] Start: 01-19-2023 Tobacco Comment vaping [facility] Start: 01-19-2023 Alcohol Comment once a month [facility] Start: 01-17-2023 Gender identity Identifies as female gender (finding) [facility] Start: 01-17-2023 Sexual orientation Bisexual (finding) [facility] Start: 03-03-2023 Tobacco Comment vaping- Quit 02/02/23 [facility] smoking consumption unknown [facility] Start: 2001 Sex assigned at Not on file [facility] Start: 12-02-2024 End: 12-19-2024 Alcoholic beverage intake Ex-drinker (finding) [facility] Start: 12-02-2024 Alcohol Comment caffeine intake: none [facility] Start: 10-02-2024 [facility] Goals Date Patient Goal Desired Activity /State Personal health goal Clinical Notes 02-26-2021 to 12-19-2024 Wesley Browning DO - 12/19/2024 9:15 AM Stephanie Gonzalez RN - 12/02/2024 11:00 AM RAMÍREZ Mathews - 11/07/2024 11:00 AM Shelly Bean DO - 03/03/2023 3:00 PM EDTPatient Instructions Note Date & Type Note Facility 12-19-2024 History of Present illness Narrative Images from the original note were not included. 13w1d is complicated by: - B+, Immune - HSV- will need valtrex @ 36 wks. - EDC changed by 8w0d U/S Glucose, UA Date Value Ref Range Status 12/19/2024 Negative Negative - 1999(110) ++++ mg/dL Final Protein, UA Date Value Ref Range Status 12/19/2024 Negative Negative - 1999(20) ++++ mg/dL Final Chief Complaint Patient presents with Routine Visit Pt presents for 13w1d pnc. -glu/-pro. Feeling nauseous daily with vomiting daily. Current Outpatient Medications Medication Sig Dispense Refill Vit-Fe Fumarate-FA ( Vitamins) 28-0.8 MG tablet Take 1 tablet by mouth Daily 30 tablet 11 No current facility-administered medications for this visit. ICD-10-CM 1. Encounter for supervision of normal first in first trimester ([facility]) Z34.01 2. 13 weeks gestation of ([facility]) Z3A.13 POCT URINALYSIS [address]/NG IGP,rfx Apt HPV ASCU,16/18,45 3. Screen for sexually transmitted diseases Z11.[address]/NG 4. Herpes simplex type 2 infection complicating , first trimester ([facility]) O98.511 B00.9 5. Severe obesity due to excess calories affecting in first trimester ([facility]) O99.211 E66.01 6. Screening for malignant neoplasm of cervix Z12.4 IGP,rfx Apt HPV ASCU,16/18,45 7. Nausea and vomiting during ([facility]) O21.9 She is here for routine visit. She complains of significant nausea. We discussed Unisom and vitamin B6 along with Zofran. We talked about how important is that she stay hydrated and symptoms to watch out for if she were to become dehydrated. She has a history of herpes simplex virus. We talked about a significance and the fact that we will put her on prophylactic Valtrex at 36 weeks but if she has a outbreak near delivery she will need to have a . We are unable to get heart tones today so we are going to do an ultrasound. If ultrasound is normal I will see her back in 4 weeks. documented in this encounter [facility] 12-02-2024 History of Present illness Narrative Name: Saroj Membreno Date/Time of Service:12/02/2024 12:05 PM :2000 Age: 24 y.o. Chief Complaint Chief Complaint Patient presents with Initial Visit Nurse Visit Saroj Membreno is a 24 y.o. at 10w5d with a working estimated date of delivery of 06/25/2025, by Last Menstrual Period who presents for an initial visit. OB History Para Term AB Living 1 0 0 0 0 0 SAB IAB Ectopic Multiple Live Births 0 0 0 0 0 # Outcome Date GA Lbr Helio/2nd Weight Sex Type Anes PTL Lv 1 Current Past Medical / Surgical History Past Medical History: Diagnosis Date ADHD (attention deficit hyperactivity disorder) Depression with anxiety HSV (herpes simplex virus) infection PTSD (post-traumatic stress disorder) Shingles Varicella zoster vaccine in childhood Past Surgical History: Procedure Laterality Date WISDOM TOOTH EXTRACTION 2019 Family History Family History Problem Relation Name Age of Onset Other (epilepsy) Mother Hyperlipidemia Father on father's side of family No Known Problems Sister Heart murmur Brother Autism (HCC) Brother ADD / ADHD Brother Learning disabilities Brother No Known Problems Brother Uterine cancer Mother's Sister Asthma Maternal Grandmother Heart disease Maternal Grandmother No Known Problems Maternal Grandfather No Known Problems Paternal Grandmother No Known Problems Paternal Grandfather Social History reports that she has never smoked. She has never used smokeless tobacco. She reports that she does not currently use alcohol. She reports that she does not use drugs. Genetic Screening Genetic Screening/Teratology Counseling- Includes patient, baby's father, or anyone in either family with: Positive Congenital heart defect Yes Mother- born with hole in heart, resolved with age Intellectual disability and/or autism Yes Pt's brother w/autism Medications (including supplements, vitamins, herbs, or OTC drugs)/illicit/recreational drugs/alcohol since last menstrual period Yes If yes, agent(s) and strength/dosage see medication Negative Patient's age 35 years or older as of estimated date of delivery No Thalassemia (Macedonian, Syrian, Mediterranean, or background): MCV less than 80 No Neural tube defect (Meningomyelocele, Spina bifida, or Anencephaly) No Down syndrome No Yusuf-Sachs (Ashkenazi Alevism, Cajun, Yemeni Tyler) No Leoncio disease (Ashkenazi Alevism) No Familial dysautonomia (Ashkenazi Alevism) No Sickle cell disease or trait () No Hemophilia or other blood disorders No Muscular dystrophy No Cystic fibrosis No Breckenridge's chorea No Other inherited genetic or chromosomal disorder No Maternal metabolic disorder (eg. Type 1 diabetes, PKU) No Patient or baby's father had child with defects not listed above No Recurrent loss, or a stillbirth No MEDICATIONS: Current Outpatient Medications on File Prior to Visit Medication Sig Dispense Refill Abilify 5 MG tablet 1 (one) time each day at the same time. (Patient not taking: Reported on 12/02/2024) BENZAC AC WASH 10 % external wash WASH, LATHER AND RINSE AFFECTED AREAS IN THE GROIN AREA DAILY (Patient not taking: Reported on 12/02/2024) doxycycline (Vibramycin) 100 MG capsule TAKE 1 CAPSULE BY MOUTH DAILY WITH FOOD AND WATER (Patient not taking: Reported on 12/02/2024) Effexor XR 37.5 MG 24 hr capsule Take 37.5 mg by mouth 1 (one) time each day at the same time. (Patient not taking: Reported on 12/02/2024) ketorolac (Toradol) 10 MG tablet Take 1 tablet by mouth 3 (three) times a day as needed (Patient not taking: Reported on 12/02/2024) spironolactone (Aldactone) 50 MG tablet (Patient not taking: Reported on 12/02/2024) traZODone (Desyrel) 100 MG tablet Take 100 mg by mouth at bedtime (Patient not taking: Reported on 12/02/2024) Victoza 18 MG/3ML injection 1 (one) time each day at the same time. (Patient not taking: Reported on 12/02/2024) Vyvanse 40 MG capsule Take 40 mg by mouth 1 (one) time each day at the same time (Patient not taking: Reported on 12/02/2024) No current facility-administered medications on file prior to visit. Allergies No Known Allergies Patient denies nausea and vomiting. Advised to call office if symptoms start. Daily vitamins prescribed. Patient counseled on Genetic and Chromosomal testing. Pt is interested, advised to check insurance coverage and provided handout to do so. Pt to discuss with FERMIN at first appt. Last PAP: 11/07/2024 NEG ASSESSMENT / PLAN Labs Ordered to [facility]. Pt to have labs drawn today. Appointments scheduled for 12/19/24 with FERMIN. Darlyn Gonzalez RN 12/02/2024 12:05 PM documented in this encounter [facility] 11-07-2024 History of Present illness Narrative Reason for Appointment: Patient ID: Saroj Membreno is a 24 y.o. female who presents [...] nursing note reviewed. Exam conducted with a paper plate machine tender present. Vitals: Estimated body mass index is 53.32 kg/m as calculated from the following: Height as [...] of: RAMÍREZ Castle documented in this encounter [facility] 04-03-2023 Note HNO ID: [id number] Author: Netta Dillard, PhD Service: ? Author Type: Psychologist Type: Progress Notes Filed: 04/07/2023 7:48 AM Note Text: [facility] Bariatric Behavioral Services Progress Note April 06, 2023 Patient was a no-show. Netta Dillard, Ph.D. Psychologist [facility] 03-03-2023 History and physical note HISTORY [...] MAC Additional Comments: None Shelly Parsons DO [facility] Work Phone: 03-03-2023 History and physical note [...] Shelly Parsons DO documented in this encounter [facility] 03-03-2023 Nurse Note POST OP LEARNING RESPONSE [...] Meghann Escalante RN In Department: AMBULATORY SURGERY [facility] 03-03-2023 Nurse Note POST OP LEARNING RESPONSE [...] Department: AMBULATORY SURGERY documented in this encounter [facility] 03-03-2023 Nurse Note PRE OP LEARNING ASSESSMENT PROCEDURE/SURGERY: GI PROCEDURES: EGD READINESS TO LEARN COGNITIVE ABILITY: Alert and oriented MOTIVATION TO LEARN: Interested FAMILY SUPPORT: High - Very involved in pt care PATIENT LEARNS BEST BY: Written Instruction - Hand-outs Verbal Instruction FACTORS AFFECTING LEARNING: None PHYSICAL LIMITATIONS AFFECTING LEARNING: None Electronically Signed By: Bia Price RN In Department: AMBULATORY SURGERY [facility] 02-25-2023 Miscellaneous Notes Lm to confirm procedure for 03-03-23 documented in this encounter [facility] 02-16-2023 Note HNO ID: [id number] Author: Eugenia Chaudhary Service: ? Author Type: ? Type: Progress Notes Filed: 02/16/2023 1:25 PM Note Text: Sleep Study Check-In Documentation Date: February 16, 2023 Name: Saroj Membreno Comments: HST was returned in working order with all sleep questionnaires Eugenia Chaudhary [facility] 02-16-2023 History of Present illness Narrative Sleep Study Check-In Documentation Date: February 16, 2023 Name: Saroj Membreno Comments: HST was returned in working order with all sleep questionnaires Eugenia Chaudhary February 11, 2023 Standing PSG Orders signed in the last 90 days None Future PSG Orders signed in the last 90 days Ordered Auth. provider HOME SLEEP APNEA TEST (HSAT) [[id number]] 01/19/23 Allie Larson APRN.[employer] Assoc. diagnoses: Pre-op evaluation [Z01.818], Class 3 [...] Gabriel III, PhD 12:15 PM, 02/11/2023 Nomad# [id number] +GPS , Date shipped out: 02/11/23 SENT FEDEX DELIVERY - FEDEX RETURN Tracking mailout: [id number] Tracking return: [phone] February 01, 2023 An order has been received for Home Sleep Apnea Test (HSAT) from Allie Sales APRN.alaina NGUYỄN [facility] [facility] Staff. Visit prep complete. Comments :No The sleep study is scheduled for 02/21. Insurance: Payor: [place] / Plan: [place] [facility] MEDICAID [facility] / Product Type: Medicaid / Payer/Plan Subscr Sex Relation Sub. Ins. ID Effective Group Num 1. [place] MEDICA* SAROJ MEMBRENO 01 Female Self [id number] [birth year] [address] Katharina Blood documented in this encounter [facility] 02-12-2023 Note HNO ID: [id number] Author: Netta Dillard, PhD Service: ? Author Type: Psychologist Type: Progress Notes Filed: 02/18/2023 12:31 PM Note Text: [facility] Bariatric Behavioral Services Progress Note February 16, 2023 Patient cancelled today's appt. Netta Dillard, Ph.D. Psychologist [facility] 02-11-2023 Note HNO ID: [id number] Author: Kelvin Gabriel III, PhD Service: ? Author Type: Physician Type: Progress Notes Filed: 02/16/2023 1:25 PM Note Text: February 11, 2023 Standing PSG Orders signed in the last 90 days None Future PSG Orders signed in the last 90 days Ordered Auth. provider HOME SLEEP APNEA TEST (HSAT) [[id number]] 01/19/23 Allie Larson APRN.KNIFE SHARPENER Assoc. diagnoses: Pre-op evaluation [Z01.818], Class 3 [...] Kelvin Gabriel III, PhD 12:15 PM, 02/11/2023 [facility] 02-11-2023 Nurse Note Ekg completed. Pt with no voiced complaints. Provider cc'd of completion. documented in this encounter [facility] 02-10-2023 Note HNO ID: [id number] Author: Temo Torres Service: ? Author Type: ? Type: Progress Notes Filed: 02/16/2023 1:25 PM Note Text: Nomad# [id number] +GPS , Date shipped out: 02/11/23 SENT FEDEX DELIVERY - FEDEX RETURN Tracking mailout: [phone] Tracking return: [phone] [facility] 02-10-[address] - 02/10/2023 1:39 PM EDT NUTRITION CARE PLAN Nutrition Intervention 02/04/2023: Modify type and amount of food consumed at meals and snacks Before your next visit, read the Nutritional Guidelines section of Your Guide to Surgery. https://my.[facility].org/d epartments/bariatric/patient-edu cation/videos-guides#guides-tab 2. Drink 64 oz of [...] Slim Fast Advanced Nutrition (20 grams protein) Pierron Breakfast Essentials Light Start mixed with 1%/skim milk Atkins Protein Shake (15 gm protein version) Boost Glucose Control (16 grams protein) OWYN (20 gm protein and 180 calories version) 5. You need 79 grams of protein every day. Have a protein food with all meals and snacks. Get your protein from: lean meat, fish, eggs, low-fat dairy (cottage/ricotta cheese, vincentian/light yogurt, cheese), nuts, nut butters, beans/legumes. 6. [...] up: 2-4 weeks documented in this encounter [facility] 02-10-2023 Miscellaneous Notes Noted, thank you Smoking Cessation Navigation Outcome of contact: Spoke with Intervention Chosen By Patient: Other Comments: Patient quit last week. eHealth Curing Finisher/Smoking Cessation Navigator: Cece Young [facility] ED documented in this encounter [facility] 02-04-2023 Note HNO ID: [id number] Author: Sasha Xie RD Service: ? Author Type: Registered Dietitian Type: Progress Notes Filed: 02/10/2023 1:40 PM Note Text: Nutrition Therapy Initial Assessment I have communicated my name and active licensure. The patient?s identity and physical location were verified at the time of this visit. Either the patient or their legal technical sales representatives has been informed of the risks and [...] Guidelines section of Your Guide to Surgery. https://my.[facility].org/d epartments/bariatric/patient-edu cation/vide os-guides#guides-tab 2. Drink 64 oz [...] Slim Fast Advanced Nutrition (20 grams protein) Pierron Breakfast Essentials Light Start mixed with 1%/skim milk Atkins Protein Shake (15 gm protein version) Boost Glucose Control (16 grams protein) OWYN (20 gm protein and 180 calories version) 5. You need 79 grams of protein every day. Have a protein food with all meals and snacks. Get your protein from: lean meat, fish, eggs, low-fat dairy (cottage/ricotta cheese, vincentian/light yogurt, cheese), nuts, nut butters, beans/legumes. 6. [...] guidelines for weight loss surgery and has [employer] therefore is required to complete 0 months of Nutrition Intervention for clearance for surgery. Today is visit #1 ([place] 02/04/2023). Patient meets the National Institutes of Health guidelines for weight loss surgery however, needs to demonstrate consistent effort in making dietary changes before being cleared for surgery. (more content not included)... [facility] 02-04-2023 History of Present illness Narrative Nutrition Therapy Initial Assessment I have communicated my name and active licensure. The patient s identity and physical location were verified at the time of this visit. Either the patient or their legal technical sales representatives has been informed of the risks and [...] Guidelines section of Your Guide to Surgery. https://my.[facility].org/d richiertments/bariatric/patient-edu cation/videos-guides#guides-tab 2. Drink 64 oz of fluids [...] Slim Fast Advanced Nutrition (20 grams protein) Pierron Breakfast Essentials Light Start mixed with 1%/skim milk Atkins Protein Shake (15 gm protein version) Boost Glucose Control (16 grams protein) OWYN (20 gm protein and 180 calories version) 5. You need 79 grams of protein every day. Have a protein food with all meals and snacks. Get your protein from: lean meat, fish, eggs, low-fat dairy (cottage/ricotta cheese, vincentian/light yogurt, cheese), nuts, nut butters, beans/legumes. 6. [...] guidelines for weight loss surgery and has [employer] Insurance therefore is required to complete 0 months of Nutrition Intervention for clearance for surgery. Today is visit #1 ([place] 02/04/2023). Patient meets the National Institutes of [...] ,cheese, kaden, sour cream, taco sauce OR israeli chicken w/ mexical rice and corn/green beans Snack - 3x week - pretzels and nutella Beverages - water 10-12 c/day, 2-3x week lemonade/vitamin water, chocolate milk Alcohol - none/occ Vitamins/Supplements - none Restaurants, pick-up, take-out: 3-4x week - Chick File, [place], Italian Activity: Activities of Daily Living: Active 50% of the day. 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 Author Type: ? Type: Progress Notes Filed: 02/16/2023 1:25 PM Note Text: February 01, 2023 An order has been received for Home Sleep Apnea Test (HSAT) from Allie Sales, [place].alaina NGUYỄN. [facility] Staff. Visit prep complete. Comments :No The sleep study is scheduled for 02/21. Insurance: Payor: [place] MEDICAID / [facility] / Product Type: Medicaid / Payer/Plan Subscr Sex Relation Sub. Ins. ID Effective Group Num 1. [place] MEDICA* ANNMARIE MEMBRENOTEN 01 Female Self [id number] [birth year] [address] Katharina Blood [facility] 01-30-2023 Note HNO ID: [id number] Author: Notareschi, Cathie, RT(R) Service: Radiology Author Type: Roller Checker Type: Progress Notes Filed: 01/30/2023 10:50 AM [...] PERIPHERAL IV DATA: Not applicable SIGNED BY: Cathie Ford RT(R) January 30, 2023 10:47 AM [facility] 01-30-2023 Note HNO ID: [id number] Author: Norberto Malone MD Service: ? Author [...] goal weight prior to liquid fast: Per emergency vehicle technician Surgically Cleared with completion of the below: [...] of nicotine befor (more content not included)... [facility] 01-30-2023 History of Present illness Narrative Radiology Service Progress Note PATIENT [...] 2023 10:47 AM documented in this encounter [facility] 01-19-2023 Note HNO ID: [id number] Author: Allie Larson APRN.GOPI Service: ? Author [...] Characterization of diet: Unstructured and skip meals. Solid Waste Technician of impaired eating habits:denies Eating Disorder no [...] Anxiety and depression Asthma No history of VA, COPD, +asthma, peptic ulcer disease, +GERD, dyslipidemia, [...] Supple, no adenopath (more content not included)... [facility] 01-19-2023 Instructions Allie Larson APRN.[facility] - 01/19/2023 9:16 AM EDT Darron Membreno , Thank you for completing your visit today and we welcome you to the surgical program. We are sure that you will still have some additional questions and encourage you to reach out to your care provider via Intrins[employer]t OR your Patient Navigator. Patient Navigators are assigned alphabetically by patient last name. The contact information for each Navigator is listed below. Last names A-E= Eugenia Last names F-L = MaribelKely Last names M-R= YaseminKely Last names S-Z= Huber Additionally, you may [...] free to ask for a hard copy. [email or web address].[facility].org/- /scassets/files/org/bariatric/gu ides/bmiguidebook-[email or web address]? la=en Once you complete all of the requirements (testing, consultations, diet, etc) from each provider, please call [phone] and select option #5 to initiate insurance approval. Also, if you have any questions along the way, we encourage you to join our weekly Navigation webinar every Thursday from 12:00 pm - 1:00 pm. This webinar will give you an opportunity to chat with your patient navigator and learn about your specific program requirements. The link for this webinar is below: [email or web address] Please note scheduling information It is important to keep track of your scheduled appointments to ensure successful completion of our surgical program. Any missed appointments can further delay your pre-surgical work-up. [facility] does offer an opt-in option for getting text message appointment reminders. Please follow the link below if you would like to opt into this service. [email or web address]/p atients/information/appointment- checklist#appointment-reminders- tab -------- As part of [...] these tests. You may call your local [facility] to get an appointment. - Lab work- No appointment is needed for this, you may complete at any [facility] Laboratory. These are usually fasting labs, please be sure to fast (only water permitted) for 10-12 hours prior to the test. -Sleep Study- Please call [phone] or [phone] to get this appointment set up. -Sleep Medicine Consult- (Only needed if sleep study confirms sleep apnea) Please call [phone] or [phone] to schedule an appointment. URINE TESTING AFTER [...] at least 1 month, go to any [facility] lab and submit your first nicotine screen. [...] Any testing that is completed outside of [facility] will need faxed to [phone]. We look forward to working with you on this journey, Allie Larson APRN.KNIFE SHARPENER documented in this encounter [facility] 01-19-2023 History of Present illness Narrative BMI Obesity Medicine Initial Bariatric [...] Characterization of diet: Unstructured and skip meals. Solid Waste Technician of impaired eating habits:denies Eating Disorder no B: skips or mkaenzie donuts or mcdonalds L: noodles or leftovers [...] Anxiety and depression Asthma No history of [place], COPD, +asthma, peptic ulcer disease, +GERD, dyslipidemia, [...] at least 1 month, go to any [facility] lab and submit your first nicotine screen. [...] and provide medicine clearance via letter in [employer]. I spent a total of 50 minutes on the date of the service which included preparing to see the patient, [id number] patient care, completing clinical documentation, obtaining and/or reviewing separately obtained history, counseling and educating the patient/family/caregiver, and ordering medications, tests, or procedures. Allie Larson, MSN, AUTOMOTIVE PARTS ADVISOR, MIDDLEWARE ADMINISTRATOR-C [facility] [address] [place] [address] documented in this encounter [facility] 07-07-2022 Evaluation note Encounter Date Diagnosis Assessment [...] concerns Jun, Urinary frequency (ICD-10 - R35.0) [facility] [facility] Other 01-24-2023 Evaluation note* Encounter Date Diagnosis Assessment Notes Treatment Notes Treatment Clinical Notes May, Generalized anxiety disorder (ICD-10 - F41.1) [facility] Other 10-31-2022 Evaluation note* Encounter Date Diagnosis Assessment Notes Treatment Notes Treatment Clinical Notes Feb, Muscle pain (ICD-10 - M79.10) Feb, PILO (generalized anxiety disorder) (ICD-10 - F41.1) [facility] Other 09-05-2022 Evaluation note* Encounter Date Diagnosis Assessment Notes Treatment Notes Treatment Clinical Notes Jan, Herpes zoster without complication (ICD-10 - B02.9) Shingles home care material was printed Drink plenty fluids, get plenty of rest. Take the Valtrex as prescribed until gone. Follow-up with your family physician if no improvement in 2 to 3 days. [facility] Other 07-05-2022 Evaluation note* Encounter Date Diagnosis [...] to be seen. Also always know the [facility] Emergency Number is 24 hours a day available, even on holidays there is someone you can reach out to. Also we will check other labs yearly to screen for other health issues. Please remember we are a team and your opinion is very important in all of your healthcare decisions Nov, Insomnia, unspecified type (ICD-10 - G47.00) Increased dose as discussed. [facility] Other 06-20-2022 Evaluation note* Encounter Date Diagnosis Assessment Notes Treatment Notes Treatment Clinical Notes Oct, Generalized anxiety disorder (ICD-10 - F41.1) Increased medication as discussed. Oct, Herpes zoster without complication (ICD-10 - B02.9) Take medicatio as directed. Tylenol or motrin for pain [facility] Other 05-23-2022 Evaluation note* Encounter Date Diagnosis [...] to be seen. Also always know the [facility] Emergency Number is 24 hours a day [...] medication can help with sleep and anxiety [facility] Other 03-27-2022 Evaluation note* Encounter Date Diagnosis Assessment Notes Treatment Notes Treatment Clinical Notes Jul, Muscle pain (ICD-10 - M79.10) [facility] Other 01-28-2022 Evaluation note* Encounter Date Diagnosis [...] Patient care instructions given in writting by [employer] [facility] document. [facility] [facility] Other 2022 Evaluation note* Encounter Date Diagnosis Assessment Notes Treatment Notes Treatment Clinical Notes May, PILO (generalized anxiety disorder) (ICD-10 - F41.1) May, Generalized anxiety disorder (ICD-10 - F41.1) May, Muscle pain (ICD-10 - M79.10) [facility] Other 11-06-2021 Evaluation note* Encounter Date Diagnosis [...] Patient care instructions given in writting by [employer] [facility] document. [facility] [facility] Other 10-14-2021 Evaluation note* Encounter Date Diagnosis Assessment Notes Treatment Notes Treatment Clinical Notes Feb, Generalized anxiety disorder (ICD-10 - F41.1) resent script Feb, Puncture wound without foreign body of lip, initial encounter (ICD-10 - S01.531A) take medication as directed. Recommend taking out piercing and possibly using different type made of different metal [facility] [facility] Other 10-05-2021 Evaluation note* Encounter Date Diagnosis [...] to be seen. Also always know the [facility] Emergency Number is 24 hours a day available, even on holidays there is someone you can reach out to. Also we will check other labs yearly to screen for other health issues. Please remember we are a team and your opinion is very important in all of your healthcare decisions [employer] Other [employer] noteNort [employer]aiing Other evaluation noteNo assessment information available [facility] Work Phone: evaluation note* Diagnosis Pre-op evaluation- Primary Preoperative examination, unspecified Class 3 severe obesity with serious comorbidity and body mass index (BMI) of 40.0 to 44.9 in adult, unspecified obesity type (HCC) Vapes nicotine containing substance Marijuana smoker Cannabis abuse, unspecified documented in this encounter [facility] note* Diagnosis Body mass index (BMI) 40.0-44.9, adult (HCC)- Primary Dietary counseling and surveillance Dietary surveillance and counseling documented in this encounter [facility] note* Diagnosis Pre-op evaluation Preoperative examination, unspecified Class 3 severe obesity with serious comorbidity and body mass index (BMI) of 40.0 to 44.9 in adult, unspecified obesity type (HCC) documented in this encounter [facility] note* Diagnosis Pre-op evaluation Preoperative examination, unspecified Class 3 severe obesity with serious comorbidity and body mass index (BMI) of 40.0 to 44.9 in adult, unspecified obesity type (HCC) [facility] Diagnosis Pre-op evaluation Preoperative examination, unspecified Class 3 severe obesity with serious comorbidity and body mass index (BMI) of 40.0 to 44.9 in adult, unspecified obesity type (HCC) documented in this encounter [facility] note* Diagnosis Onset Date Resolution Status Right otitis media noneactiv e [facility] Work Phone: evaluation note* Diagnosis Onset Date Resolution Status Right otitis media noneactiv e Right ankle sprain acute [facility] Work Phone: Evaluation note* Diagnosis Onset Date Resolution Status Right ankle sprain acute [facility] Work Phone: Evaluation note* Diagnosis Onset Date Resolution Status Right ankle sprain acute Acute pharyngitis acute [facility] Work Phone: Evaluation note* Diagnosis Onset Date Resolution Status Right ankle sprain acute Acute pharyngitis acute Vaginal discharge [facility] Work Phone: Evaluation note* Diagnosis Class 3 severe obesity with serious comorbidity and body mass index (BMI) of 40.0 to 44.9 in adult, unspecified obesity type (HCC) documented in this encounter [facility] note* Diagnosis Well woman exam with routine gynecological exam Routine gynecological examination documented in this encounter [facility] Healthcare[facility] note* Diagnosis Encounter for supervision of normal first in first trimester ([facility]) Encounter for drug screening Encounter for screening for chromosomal anomalies ([facility]) Screening for genetic disease carrier status documented in this encounter [facility] Healthcare[facility] note* Diagnosis Encounter for supervision of normal first in first trimester ([facility])- Primary 13 weeks gestation of ([facility]) Screen for sexually transmitted diseases Screening examination for venereal disease Herpes simplex type 2 infection complicating , first trimester ([facility]) Severe obesity due to excess calories affecting in first trimester ([facility]) Screening for malignant neoplasm of cervix Screening for malignant neoplasm of the cervix Nausea and vomiting during ([facility]) documented in this encounter [facility] Narrative - Reported* Type Description Date Medical History ADHD Medical History syncope Medical History anxiety Medical History lupus Medical History back pain Medical History chronic depression Medical History PTSD Surgical History wisdom teeth Hospitalization History No Hospitalization histo ry information [facility] [employer] Other Histtgy general Narrative - Reported* Type Description Date Medical History ADHD Medical History syncope Medical History anxiety Medical History lupus Medical History back pain Medical History chronic depression Medical History PTSD Surgical History wisdom teeth Hospitalization History No know Hospitalization history [facility] [employer] Other History general [facility] - [facility] [employer] Other Reason for referral (narrative)* Diagnostic Procedure Only (Routine) - Pending Review Specialty Diagnoses / Procedures Referred By Simba t Referred To [facility] Diagnoses Pre-op evaluation Class 3 severe obesity with serious comorbidity and body mass index (BMI) of 40.0 to 44.9 in adult, unspecified obesity type (HCC) Procedures HOME SLEEP APNEA TEST (HSAT) SLEEP STD AIRFLOW HRT RATE&O2 SAT EFFORT UNATT Allie Larson APRN.CNP [address] [place] [address] [facility] [address] [place] [address] Referral ID Status Reason Start Date Expiration Date Visits Requested Visits Authorized [id number] Pending Review Auto-Generat ed Referral 01/19/2023 01/19/2024 1 1 * Diagnostic Procedure Only (Routine) - Pending Review Specialty Diagnoses / Procedures Referred By Simba simmons Referred To Contact [facility] Diagnoses Pre-op evaluation Class 3 severe obesity with serious comorbidity and body mass index (BMI) of 40.0 to 44.9 in adult, unspecified obesity type (HCC) Procedures US ABD RIGHT UPPER QUADRANT US ABDOMINAL REAL TIME W/IMAGE LIMITED Allie Larson APRN.CNP [address] [place] [address] [facility] Referral ID Status Reason Start Date Expiration Date Visits Requested Visits Authorized [id number] Pending Review Auto-Generat ed Referral 01/19/2023 02/18/2024 [...] ECG W/LEAST 12 LDS W/I&R Allie Larson APRN.CNP [address] [id number] [facility] [address] [place] [address] Referral ID Status Reason Start Date Expiration Date Visits Requested Visits Authorized [id number] Pending Review Auto-Generat ed Referral 01/19/2023 01/19/2024 1 1 [facility] for referral (narrative)* Diagnostic Procedure Only (Routine) - Closed Specialty Diagnoses / Procedures Referred By Contac t Referred To Contact [facility] Diagnoses Pre-op evaluation Class 3 severe obesity with serious comorbidity and body mass index (BMI) of 40.0 to 44.9 in adult, unspecified obesity type (HCC) Procedures US ABD RIGHT UPPER QUADRANT US ABDOMINAL REAL TIME W/IMAGE LIMITED Allie Larson APRN.CNP [id number] [place] [address] Referral ID Status Reason Start Date Expiration Date V isits Requested Visits Authorized [id number] Closed Auto-Generate d Referral 01/19/2023 02/18/2024 1 1 [facility] for referral (narrative)* Outpatient Procedure (Routine) - Closed Specialty Diagnoses / Procedures Referred By Contac t Referred To Contact [facility] Diagnoses Class 3 severe obesity with serious comorbidity and body mass index (BMI) of 40.0 to 44.9 in adult, unspecified obesity type (HCC) Procedures EGD DIAGNOSTIC ESOPHAGOGASTRODUODENOSC OPY [place] [address] [place] [address] [facility] [place] [address] Referral ID Status Reason Start Date Expiration Date V isits Requested Visits Authorized [id number] Closed Auto-Generate d Referral 01/30/2023 01/30/2024 1 1 [facility] for visit Narrative* Diagnostic Procedure Only (Routine) - Closed Specialty Diagnoses / Procedures Referred By Contac t Referred To Contact [facility] Diagnoses Pre-op evaluation Class 3 severe obesity with serious comorbidity and body mass index (BMI) of 40.0 to 44.9 in adult, unspecified obesity type (HCC) Procedures US ABD RIGHT UPPER QUADRANT US ABDOMINAL REAL TIME W/IMAGE LIMITED Allie Larson, AUTOMOTIVE PARTS ADVISOR.KNIFE SHARPENER [id number] [place] [address] Us Imaging [facility] Referral ID Status Reason Start Date Expiration Date V isits Requested Visits Authorized [id number] Closed Auto-Generate d Referral 01/19/2023 02/18/2024 1 1 [facility] for visit Narrative* Outpatient Procedure (Routine) - Closed Specialty Diagnoses / Procedures Referred By Contac t Referred To Contact [facility] Diagnoses Class 3 severe obesity with serious comorbidity and body mass index (BMI) of 40.0 to 44.9 in adult, unspecified obesity type (HCC) Procedures EGD DIAGNOSTIC ESOPHAGOGASTRODUODENOSC OPY TR[place] [address] [address] [facility] [address] [place] [address] Referral ID Status Reason Start Date Expiration Date V isits Requested Visits Authorized [id number] Closed Auto-Generate d Referral 01/30/2023 01/30/2024 1 1 [facility] Chief Complaint and Reason for Visit Chief [...] sprain Acute pharyngitis Vaginal discharge Advance Directives Advance Directive Response Recorded Date/ Time Advance [...] Up Specialty Diagnoses / Procedures Referred By Simba simmons Referred To [facility] Diagnoses Pre-op evaluation Class 3 severe obesity with serious comorbidity and body mass index (BMI) of 40.0 to 44.9 in adult, unspecified obesity type (HCC) Procedures ECG COMPLETE ECG ROUTINE ECG W/LEAST 12 LDS W/I&R Allie Larson, AUTOMOTIVE PARTS ADVISOR.KNIFE SHARPENER [address] [place] [address] [facility] [address] [place] [address] Referral ID Status Reason Start Date Expiration Date V isits Requested Visits Authorized [id number] Closed Auto-Generate d Referral 01/19/2023 01/19/2024 1 1 Reason Comments Radio Gen RMP Reason Comments Gynecologic Exam Reason Comments Initial Visit Nurse Visit Reason Comments Routine Visit Pt presents for 1 3w1d pnc. -glu/-pro. Feeling nauseous daily with vomiting daily. Care Teams (unrecognized sec tion and content) [...] STAFF Primary Care Provider Active Michelle Arthur [facility] Emergency Provider Active Senior Mechanical Engineer Relationship Specialty Start Date End Date Maria R Disla CNP [address] [place] [address] Referring Family Medicine 01/07/23 Senior Mechanical Engineer Relationship Specialty Start Date End Date Maria R iDsla CNP [address] [place] [address] Referring Family Medicine 01/07/23 Senior Mechanical Engineer Relationship Specialty Start Date End Date Maria R Disla CNP [address] [place] [address] Referring Family Medicine 01/07/23 Senior Mechanical Engineer Relationship Specialty Start Date End Date Maria R Disla CNP [address] [place] [address] Referring Family Medicine 01/07/23 Senior Mechanical Engineer Relationship Specialty Start Date End Date Maria R Disla CNP [address] [place] [address] Referring Family Medicine 01/07/23 Senior Mechanical Engineer Relationship Specialty Start Date End Date Maria R Disla CNP [address] [place] [address] Referring Family Medicine 01/07/23 Senior Mechanical Engineer Relationship Specialty Start Date End Date NaifMaria RGOPI [facility] [place] [address] Referring Family Medicine 01/07/23 Team Status: Inactive [...] February 02, 2024 End: February 02, 2024 Senior Mechanical Engineer Relationship Specialty Start Date End Date Kromer, Karly PCP - [facility] [place] [employer] 11/23/23 Senior Mechanical Engineer Relationship Specialty Start Date End Date Kromer, Karly PCP - [facility] [place] [employer] 11/23/23 Senior Mechanical Engineer Relationship Specialty Start Date End Date Kromer, Karly PCP - [facility] [place] [employer] 11/23/23 Senior Mechanical Engineer Relationship Specialty Start Date End Date Kromer, Karly PCP - [facility] [place] [facility] 11/23/23 Senior Mechanical Engineer Relationship Specialty Start Date End Date Karly Baca PCP - [facility] [place] [facility] 11/23/23 Senior Mechanical Engineer Relationship Specialty Start Date End Date Karly Bcaa PCP - [facility] [place] [facility] 11/23/23 Goals (unrecognized section and content) Goals may be documented in a n alternate section INFORMATION SOURCE (unrecogn ized section and content) DATE CREATED AUTHOR 09/27/2022 [facility] DATE CREATED AUTHOR AUTHOR'S ORGANIZ ATION 02/11/2023 [facility] DATE CREATED AUTHOR AUTHOR'S ORGANIZ ATION 03/13/2023 [facility] DATE CREATED AUTHOR AUTHOR'S ORGANIZ ATION 04/07/2023 [facility] DATE CREATED AUTHOR AUTHOR'S ORGANIZ ATION 02/07/2024 [facility] DATE CREATED AUTHOR AUTHOR'S ORGANIZ ATION 03/25/2024 [facility] DATE CREATED AUTHOR AUTHOR'S ORGANIZ ATION 03/26/2024 [facility] DATE CREATED AUTHOR AUTHOR'S ORGANIZ ATION 03/28/2024 [facility] DATE CREATED AUTHOR AUTHOR'S ORGANIZ ATION 12/19/2024 [facility] EPIC Source Comments (unrecognize d section and content) In the event this informatio n is protected by the Federal Confidentiality of Alcohol and Drug Abuse Patient Records regulations: The Federal rules restrict any use of the information to criminally investigate or prosecute any alcohol or drug abuse patient.[facility] the event this information is protected by the Federal Confidentiality of Alcohol and Drug Abuse Patient Records regulations: The Federal rules restrict any use of the information to criminally investigate or prosecute any alcohol or drug abuse patient.[facility] the event this information is protected by the Federal Confidentiality of Alcohol and Drug Abuse Patient Records regulations: The Federal rules restrict any use of the information to criminally investigate or prosecute any alcohol or drug abuse patient.[facility] Hospital[facility] the event this information is protected by the Federal Confidentiality of Alcohol and Drug Abuse Patient Records regulations: The Federal rules restrict any use of the information to criminally investigate or prosecute any alcohol or drug abuse patient.[facility] Hospital[facility] the event this information is protected by the Federal Confidentiality of Alcohol and Drug Abuse Patient Records regulations: The Federal rules restrict any use of the information to criminally investigate or prosecute any alcohol or drug abuse patient.[facility] Hospital[facility] the event this information is protected by the Federal Confidentiality of Alcohol and Drug Abuse Patient Records regulations: The Federal rules restrict any use of the information to criminally investigate or prosecute any alcohol or drug abuse patient.[facility] Hospital[facility] the event this information is protected by the Federal Confidentiality of Alcohol and Drug Abuse Patient Records regulations: The Federal rules restrict any use of the information to criminally investigate or prosecute any alcohol or drug abuse patient.[facility] Hospital[facility] the event this information is protected by the Federal Confidentiality of Alcohol and Drug Abuse Patient Records regulations: The Federal rules restrict any use of the information to criminally investigate or prosecute any alcohol or drug abuse patient.[facility] Hospital[facility] the event this information is protected by the Federal Confidentiality of Alcohol and Drug Abuse Patient Records regulations: The Federal rules restrict any use of the information to criminally investigate or prosecute any alcohol or drug abuse patient.[facility] FOR RECORDS PERTAINING TO PATIENTS WHO ARE [...] BE BASED ON THE PRIMARY CLINICAL RECORDS. [facility] [employer] [facility]. provides no warranty or guarantee of the accuracy or completeness of information in this document.
--- OUTSIDE RECORDS SUMMARY | 2025-01-19 09:54 | XMS_ITS | Encounter Summary ---
Author Organization [facility] Address [address] [place] [address] Care Team Providers Care Carpenter Name Role Phone Karly Baca Unavailable Unavailable Encounter Details Date Type Department Care Team (Late Contact Info) Description 01/19/2025 Bamboo flowsheet [facility] [address] [place] [address] Rodrigo Guzman DO [address] [place], [facility] Social History Tobacco Use Types Packs/Day [...] AM EDT Routine [facility] [address] [place] [address] Carmita Will, BAIT DIGGER [address] [place] [id number] documented as of this encounter Goals Goal Patient Goal Type Associated Problems Recent Progress Patient-Stated? Author Reminders Care Plan OB Reminders No Darlyn Gonzalez RN documented as of this encounter Visit Diagnoses Not on filedocumented in this encounter Additional Health Concerns Active Problems Noted Date Diagnosed Date OB Reminders 12/02/2024 documented as of this encounter Care Teams Carpenter Relationship Specialty Start Date End Date Karly Baca PCP - [facility] DELI CLERK 11/23/23 documented as of this encounter
== END 2025-01-19 09:45 | disposition home or self-care (01) ==
PROVIDERS: PCP Nurse Practitioner Family; Visit Provider Obstetrics & Gynecology
DX: Z34.91 Encounter for supervision of normal pregnancy, unspecified, first trimester (principal); Z3A.12 12 weeks gestation of pregnancy
CPT/HCPCS: 36415; 83036

== ENCOUNTER 2025-02-09 15:22 | Emergency (ER) | payer MEDICAID, SELFPAY ==
[2025-02-09] VITALS (21 sets, daily range): BP systolic 91–121; BP diastolic 42–78; PULSE 62–86; TEMP 36.6; O2SAT 98–100; BMI 52.4
--- OUTSIDE RECORDS SUMMARY | 2025-02-09 15:51 | XMS_ITS | CCD ---
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 Name Role Phone Maria R Disla Unavailable Radhika Enrique Unavailable NON STAFF Primary Care Provider UnavailZAYRA Siddiqui- Michelle Hardwick Emergency Provider FRANCISCO J Enrique Attending Provider [phone] MARIA R DISLA Primary Care Unavailable DR GUILHERME WALTON Admitting Unavailable ANTON, DR GUILHERME Blackburn Attending Unavailable EMMA ., IRA Consulting Unavailable NAIF, MARIA R [...] PAY ., DR PEARSON Consulting Unavailable Naif NGUYỄNCarlosie Unavailable [phone] SASHA XIE Attending Unavailable NEO, ALLIE Referring Unavailable NEO, ALLIE Referring Unavailable SHELLY PARSONS Attending Unavailable MALONE, TOMS Referring Unavailable NETTA DILLARD Attending Unavailable NEO, ALLIE Referring Unavailable NEO, ALLIE Attending Unavailable MALONE, TOMS Attending Unavailable NEO, ALLIE Referring Unavailable NON STAFF Primary Care Provider UnavailISRAEL Torres Attending Provider [phone] ISRAEL Christie Attending Provider [phone] ISAREL Alas Attending Provider MARIA R DISLA Attending Unavailable MARIA R DISLA Admitting Unavailable MARZENA MARTINEZ Attending Unavailable MARZENA MARTINEZ Admitting Unavailable MARIA R DISLA Attending Unavailable MARIA R DISLA Admitting Unavailable Krrayne Karly Unavailable Unavailable NON STAFF Primary Care Provider Unavailanna marie e Rajwinder Bang APRN Attending Provider Fred Longoria PA-C Attending Provider [phone] Valente Hebert DO Emergency Provider NON STAFF Primary Care Unavailable Valente Hebert Attending Unavailable Valente Hebert Admitting Unavailable IRA JENSEN Attending Unavailable WESLEY BROWNING Attending Unavailable RODRIGO GUZMAN Attending Unavailable IRA JENSEN Attending Unavailable Medications Current Medications Medication Drug Class(es) Dates Sig (Normalized) Sig (Original) amoxicillin 875 mg oral tablet (6 sources) Penicillin-class Antibacterial Start: 03-07-2021 take 1 tablet by mouth every twelve hours Amoxicillin 875 MG 1 tablet Orally every 12 hrs for 7 days Feb, Active clindamycin 10 mg/ml topical solution (12 sources) Lincosamide Antibacterial Start: 10-27-2022 End: 11-07-2024 clindamycin (Cleocin T) 1 % external solution APPLY TO AFFECTED AREAS ON GROIN ONCE DAILY AFTER SHOWER. 10/27/2022 11/07/2024 Discontinued (Therapy completed) Comment on above: Apply 1 Application to affected area once daily. 24 hr desvenlafaxine succinate 25 mg extended release oral tablet (5 sources) Serotonin and Norepinephrine Reuptake Inhibitor Start: 11-26-2021 take 1 tablet by mouth every twenty-four hours Pristiq 25 MG 1 tablet Orally Once a day for 30 day(s) Nov, Active etonogestrel 68 mg drug implant (20 sources) Progestin Start: 11-17-2022 End: 11-07-2024 etonogestrel-eluti ng 68 mg contraceptive implant Indications: Encounter for removal and reinsertion of Nexplanon 1 each by Implant route 1 (one) time for 1 dose. 1 each 11/17/2022 11/07/2024 Discontinued (Therapy completed) Start: 11-17-2022 etonogestrel ( NEXPLANON) subdermal implant 68 mg 1 Each by SUBDERMAL route. 11/17/2022 Active Nexplanon Active Comment on above: 1 Each by SUBDERMAL route. hydrOXYzine hydrochloride 10 mg oral tablet (14 sources) Antihistamine Start: 10-14-2021 hydrOXYzine HCl 10 MG 1 tablet as needed Orally at bedtime for 30 day(s) September, Active Start: 10-14-2021 hydrOXYzine HC l 25 MG 1 tablet as needed Orally at bedtime for 30 day(s) September, Active lisdexamfetamine dimesylate 40 mg oral capsule (4 sources) Central Nervous System Stimulant Start: 11-09-2024 End: 12-19-2024 magnesium oxide 400 mg oral tablet (4 sources) Start: 02-07-2025 End: 09-05-2025 take 1 tablet by mouth once daily magnesium oxide (Mag-Ox) 400 MG tablet Indications: Nausea and vomiting in ([facility]) Take 1 tablet (400 mg) by mouth Daily 30 tablet 6 02/07/2025 09/05/2025 Active nitrofurantoin, macrocrystals 25 mg / nitrofurantoin, monohydrate 75 mg oral capsule (2 sources) Nitrofuran Antibacterial Start: 07-07-2022 take 1 capsule by mouth every twelve hours Macrobid 100 MG 1 cap(s) Orally 2 times a day for 5 day(s) Jun, Active ondansetron 4 mg oral tablet (4 sources) Serotonin-3 Receptor Antagonist Start: 02-07-2025 take 1 tablet by mouth every six hours as needed for nausea and nausea, then take 1 tablet by mouth every six hours as needed for nausea and nausea ondansetron (Zofran) 4 MG tablet Indications: Nausea and vomiting in ([facility]) Take 1 tablet (4 mg) by mouth every 6 (six) hours if needed for nausea or vomiting for up to 120 doses Take 1 tablet by mouth every 6 hours as needed for nausea. 30 tablet 3 02/07/2025 Active phenazopyridine hydrochloride 200 mg oral tablet (2 sources) Start: 07-07-2022 take 1 tablet by mouth every eight hours Pyridium 200 MG 1 tablet after meals Orally Three times a day for 2 day(s) Jun, Active Vit-Fe Fumarate-FA ( Vitamins) 28-0.8 MG tablet (12 sources) Start: 12-02-2024 End: 12-02-2025 take 1 tablet by mouth once daily Vit-Fe Fumarate-FA ( Vitamins) 28-0.8 MG tablet Indications: Encounter for supervision of normal first in first trimester ([facility]) Take 1 tablet by mouth Daily 30 tablet 11 12/02/2024 12/02/2025 Active traZODone hydrochloride 100 mg oral tablet (14 sources) Serotonin Reuptake Inhibitor Start: 11-15-2024 End: 12-19-2024 Start: 09-16-2023 End: 11-15-2024 take 1 tablet by mouth once daily Trazodone 50 mg tablet Discontinued 50 MG PO Daily September 16, 2023 12:00am November 15, 2024 10:11am valACYclovir 1000 mg oral tablet (14 sources) Herpesvirus Nucleoside Analog DNA Polymerase Inhibitor, Herpes Simplex Virus Nucleoside Analog DNA Polymerase Inhibitor, Herpes Zoster Virus Nucleoside Analog DNA Polymerase Inhibitor Start: 11-15-2024 valACYclovir (Valtr ex) 1 g tablet Take 1,000 mg by mouth in the morning and 1,000 mg before bedtime. 11/15/2024 Active Start: 01-27-2022 take 1 tablet by rhona th every eight hours Valtrex 1 GM 1 tablet Orally 3 times a day for 7 days Jan, Not-Taking take 1 tablet by rhona th every twelve hours Valtrex 1 GM 1 tablet Orally twice a day for 7 days Active 24 hr venlafaxine 37.5 mg extended release oral capsule (20 sources) Serotonin and Norepinephrine Reuptake Inhibitor Start: 02-28-2020 End: 12-19-2024 take 1 capsule by mouth every twenty-four hours Effexor XR 37.5 MG 1 capsule with food Orally Once a day for 30 days Feb, Active Start: 11-28-2019 take 1 capsule by mo [facility] every twenty-four hours Effexor XR 75 MG 1 capsule with food Orally Once a day for 30 days patient lost presciption Nov, Active Completed/Discontinued Medications Medication Drug Class(es) Dates Sig (Normalized) Sig (Original) [id number] 200 actuat albuterol 0.09 mg/actuat metered dose inhaler (15 sources) beta2-Adrenergic Agonist Start: 11-09-2024 End: 11-15-2024 Albuterol Sulfate 90 mcg/actuation HFA aerosol inhaler Discontinued 1 INH INHALATION Every 4 hours as needed for shortness of breath or wheezing 6.7 November 09, 2024 12:00am November 15, 2024 10:10am Start: 12-25-2020 take 2 puff(s) by in [...] Dec, Active Start: 12-25-2020 amoxicillin 875 mg / clavulanate 125 mg oral tablet (1 source) Penicillin-class Antibacterial Start: 11-09-2024 End: 11-15-2024 take 1 tablet by mouth twice daily at mealtime Amoxicillin-Pot Clavulanate 875-125 mg tablet Discontinued 1 TAB PO Twice daily 14 7 November 09, 2024 12:00am November 15, 2024 10:10am take with food ARIPiprazole 5 mg oral tablet (20 sources) Atypical Antipsychotic Start: 02-26-2021 take 1 tablet by mouth every twenty-four hours ARIPiprazole 2 MG 1 tablet Orally Once a day for 30 days Feb, Active Start: 02-26-2021 End: 12-19-2024 Aripiprazole 5 mg tablet Dis continued MG PO November 05, 2024 12:00am November 15, 2024 10:11am Comment on above: Take 1 tablet by rhona once daily. benzoyl peroxide 100 mg/ml medicated liquid soap (16 sources) Start: 023 End: BENZAC AC WASH 10 % external wash WASH, LATHER AND RINSE AFFECTED AREAS IN THE GROIN AREA DAILY 09/22/2022 12/19/2024 Discontinued (Therapy completed) Comment on above: Apply 1 Application to affected area once daily. cefdinir 300 mg oral capsule (7 sources) Cephalosporin Antibacterial Start: 024 End: 06-21-2 024 take 1 capsule by mouth twice daily Cefdinir 300 mg capsule Discontinued 300 MG PO Twice daily 14 September 16, 2023 12:00am November 13, 2023 10:35am cyclobenzaprine hydrochloride 10 mg oral tablet (20 sources) Muscle Relaxant Start: 024 End: 025 take 1 tablet by mouth once daily Cyclobenzaprine 10 mg tablet Discontinued 10 MG PO Daily September 16, 2023 12:00am November 05, 2024 9:18am Start: 03-16-2020 take 1 tablet by [facility] every eight hours Cyclobenzaprine HCl 5 MG 1 tablet as needed Orally Three times a day Feb, Not-Taking dextromethorphan hydrobromide 15 mg / guaiFENesin 400 mg / pseudoephedrine hydrochloride 60 mg oral tablet (1 source) alpha-Adrenergic Agonist, Uncompetitive T-mgxmge-X-aspartate Receptor Antagonist, Sigma-1 Agonist Start: 11-05-2024 End: 11-15-2024 take 4 tablets by mouth every twenty-four hours as needed Nbmfqujajktames-Fq-Tsvribcdyqv (Capmist Dm) 60-15-400 mg tablet Discontinued 1 TAB PO EVERY 4-6 HOURS as needed for cold symptoms November 05, 2024 12:00am November 15, 2024 10:11am do not exceed 4 doses per 24 hrs doxycycline hyclate 100 mg oral capsule (16 sources) Tetracycline-class Drug Start: 09-22-2022 End: 12-19-2024 take 1 capsule by mouth once daily at mealtime doxycycline (Vibramycin) 100 MG capsule TAKE 1 CAPSULE BY MOUTH DAILY WITH FOOD AND WATER 09/22/2022 12/19/2024 Discontinued (Therapy completed) Comment on above: Take 1 capsule by mo [facility] once daily. fluconazole 150 mg oral tablet (2 sources) Azole Antifungal Start: 02-02-2024 End: 11-05-2024 Fluconazole 150 mg tablet Discontinued 150 MG PO Q3D 2 0 February 02, 2024 12:00am November 05, 2024 9:17am may repeat x 1 in 3 days if needed ketorolac tromethamine 10 mg oral tablet (3 [...] the same time. 12/19/2024 Discontinued (Therapy completed) metroNIDAZOLE 500 mg oral tablet (1 source) Nitroimidazole Antimicrobial Start: 02-05-2024 End: 11-05-2024 take 1 tablet by mouth every twelve hours Metronidazole 500 mg tablet Discontinued 500 MG PO Every 12 hours 14 February 05, 2024 12:00am November 05, 2024 9:17am minocycline 100 mg oral capsule (7 sources) Tetracycline-class Drug Start: 09-16-2023 End: 01-20-2024 take 1 mg by mouth once daily Minocycline 100 mg capsule Discontinued MG PO Daily September 16, 2023 12:00am January 20, 2024 12:02pm Start: 09-16-2023 End: 01-20-2024 take 1 mg by mouth once daily Minocycline Discontinued MG PO Daily September 16, 2023 12:00am January 20, 2024 12:02pm predniSONE 20 mg oral tablet (1 source) Start: 11-09-2024 End: 11-15-2024 take 3 tablets by mouth once daily at mealtime Prednisone 20 mg tablet Discontinued 60 MG PO Daily 15 5 November 09, 2024 12:00am November 15, 2024 10:11am with food spironolactone 50 mg oral tablet (16 sources) Aldosterone Antagonist End: 12-19-2024 spironolactone (Aldactone) 50 MG tablet 12/19/2024 Discontinued (Therapy completed) Comment on above: Take 1 tablet by rhona th once daily. Problems Active Problems Problem Classification Problem Date [...] Chronic Attention-deficit, conduct, and disruptive behavior disorders (16 sources) Attention deficit hyperactivity disorder; Translations: [Attention-deficit [...] INFECTION UNSPEC] Onset: 09-23-2022 Episodic Mood disorders (16 sources) Depressive disorder; Translations: [Depression] Onset: 01-19-2023 [...] first trimester] 12-19-2024 Episodic Other complications of (4 sources) Vomiting of , unspecified; Translations: [Unspecified vomiting of , unspecified as to episode of care or not applicable] 12-19-2024 Episodic Other connective tissue disease (3 sources) Myalgia, unspecified site Onset: 05-28-2021 Resolved: 08-18-2021 Episodic Other female genital disorders (4 sources) Vaginal discharge; Translations: [Other specified noninflammatory disorders of vagina] 02-02-2024 Episodic Other female genital disorders (1 source) Other specified noninflammatory disorders of vagina; Translations: [Leukorrhea, not specified as infective] 02-02-2024 Episodic Other gastrointestinal disorders (3 sources) Diarrhea, unspecified; Translations: [DIARRHEA UNSPECIFIED] Onset: 09-20-2022 Episodic Other injuries and conditions due to external causes (6 sources) Injury of right leg; Translations: [Unspecified injury of right ankle, initial encounter] 11-13-2023 Episodic Other nutritional; endocrine; and metabolic [...] 01-30-2023 Chronic Other and delivery including normal (7 sources) Normal ; Translations: [Encounter for supervision of normal first , first trimester] 12-02-2024 Episodic Other screening for suspected conditions (not mental disorders or infectious disease) (2 sources) Cancer cervix screening status; Translations: [Encounter for screening for malignant neoplasm of cervix] 12-19-2024 Episodic Other skin disorders (1 source) Follicular disorder, unspecified; Translations: [FOLLICULAR DISORDER UNSPECIFIED] Onset: 09-24-2022 Episodic Other upper respiratory infections (6 sources) Acute pharyngitis; Translations: [Acute pharyngitis, unspecified] 01-20-2024 Episodic Otitis media and related conditions (3 sources) Otitis media, unspecified, right ear; Translations: [Unspecified otitis media] 09-16-2023 Episodic Residual codes; unclassified (14 sources) Insomnia; Translations: [Insomnia, unspecified] 09-16-2023 Episodic Residual codes; unclassified (12 sources) Patient encounter status; Translations: [Procedure and treatment not carried out due to patient leaving prior to being seen by health care provider] 07-04-2022 Episodic Comment on above: Problem List clean-u p per request of Phys. EHR Cmte Residual codes; unclassified (1 source) Nicotine-filled electronic cigarette user; Translations: [Tobacco use] 01-19-2023 Episodic Residual codes; unclassified (1 source) Tobacco use; Translations: [Vapes nicotine containing substance] Onset: 01-19-2023 Episodic Residual codes; unclassified (2 sources) Gestation period, 13 weeks; Translations: [13 weeks gestation of ] 12-16-2024 Episodic Residual codes; unclassified (2 sources) Gestation period, 12 weeks; Translations: [12 weeks gestation of ] 01-19-2025 Episodic Residual codes; unclassified (2 sources) Gestation period, 15 weeks; Translations: [15 weeks gestation of ] 02-07-2025 Episodic Skin and subcutaneous tissue infections (4 sources) Cutaneous abscess of groin; Translations: [CUTANEOUS ABSCESS OF GROIN] Onset: 09-23-2022 Episodic Sprains and strains (11 sources) Sprain of right ankle; Translations: [Sprain of unspecified ligament of right ankle, initial encounter] 11-13-2023 Episodic Substance-related disorders (1 source) Nicotine dependence, cigarettes, uncomplicated; Translations: [NICOTINE DEPEND CIGARETTES UNCOMP] Onset: 09-23-2022 Chronic Substance-related disorders (2 sources) Marijuana user; Translations: [Cannabis use, unspecified, uncomplicated] Onset: 01-19-2023 01-19-2023 Episodic Syncope (7 sources) Syncope; Translations: [Syncope and collapse] 09-16-2023 Episodic Systemic lupus erythematosus and connective tissue disorders (7 sources) Lupus erythematosus; Translations: [Systemic lupus erythematosus, unspecified] 09-16-2023 Chronic Unclassified (12 sources) OB Reminders Onset: 12-02-2024 12-02-2024 Urinary tract infections (1 source) Urinary tract infection, site not specified Episodic Viral infection (4 sources) Zoster without complications; Translations: [Herpes zoster] Onset: 11-11-2021 Resolved: 01-27-2022 Episodic Past or Other Problems Problem Classification Problem Date Documented Da te Episodic/Chronic Open wounds of head; neck; and trunk (1 source) Puncture wound without foreign body of lip, initial encounter; Translations: [Puncture wound without foreign body of lip, initial encounter S01.531A] Onset: 03-07-2021 Resolved: 03-07-2021 Episodic Other aftercare (1 source) Other custodial (current) drug therapy; Translations: [OTH DIRECTOR OF HOME ECONOMICS CURRENT DRUG THERAPY] Onset: 01-15-2022 Episodic Other [...] CARRIED OUT PT LEAVE] Onset: 05-01-2022 Episodic Results Test Name Value Interpretation Reference Range Facility RECURRENT VAGINITIS (HTRX)on 02-08-2025 ATOPOBIUM VAGINAE 0 [facility] ATOPOBIUM VAGINAE Not detected [facility] BVAB 2,3 (BACTERIAL VAGINOSIS ASSOCIATED BACTERIA 2, 3); MOBILUNCUS SPP 0 [facility] BVAB 2,3 (BACTERIAL VAGINOSIS ASSOCIATED BACTERIA 2, 3); MOBILUNCUS SPP Not detected [facility] ASHUTOSH ALBICANS, PARAPSILOSIS, TROPICALIS 0 [facility] ASHUTOSH ALBICANS, PARAPSILOSIS, TROPICALIS Not detected [facility] ASHUTOSH GLABRATA 0 [facility] ASHUTOSH GLABRATA Not detected [facility] ASHUTOSH KRUSEI 0 [facility] ASHUTOSH KRUSEI Not detected [facility] CHLAMYDIA TRACHOMATIS 0 [facility] CHLAMYDIA TRACHOMATIS Not detected [facility] GARDNERELLA VAGINALIS 0 [facility] GARDNERELLA VAGINALIS Not detected [facility] MEGASPHAERA (TYPES 1, 2) 0 [facility] MEGASPHAERA (TYPES 1, 2) Not detected [facility] MYCOPLASMA GENITALIUM 0 [facility] MYCOPLASMA GENITALIUM Not detected [facility] NEISSERIA GONORRHOEAE 0 [facility] NEISSERIA GONORRHOEAE Not detected [facility] TRICHOMONAS VAGINALIS 0 [facility] TRICHOMONAS VAGINALIS Not detected [facility] Urinalysis macro (dipstick) panel (U)on 02-07-2025 Bilirubin, UA Negative Negative - 4(70) +++ mg/dL [facility] Blood, UA Negative Negative - 50 Dao/mcL [facility] Clarity, UA Clear [facility] Color, UA Yellow [facility] Glucose, UA Negative Negative - 1999(110) ++++ mg/dL [facility] Interpretation and review of laboratory results Normal [facility] Ketones, UA Negative Negative - 160(16) ++++ mg/dL [facility] Leukocytes, UA Negative Negative - 500+++ Hernandez/mcL [facility] Nitrite, UA Negative Negative - Positive [facility] pH, UA 7 5 - 9 [facility] Protein, UA Negative Negative - 2000(20) ++++ mg/dL [facility] Spec Grav, UA 1.01 1 - 1.03 [facility] Urobilinogen, UA 0.2 0.2 - 12 mg/dL [facility] BOX TESTon 01-19-2025 BOX TEST SENT OUT [facility] [address] [facility] [address] 01/19/25 [facility] Urinalysis macro (dipstick) panel (U)on 01-19-2025 Bilirubin, UA Negative Negative - 4(70) +++ mg/dL [facility] Blood, UA Negative Negative - 50 Dao/mcL [facility] Clarity, UA Clear [facility] Color, UA Yellow [facility] Glucose, UA Negative Negative - 1999(110) ++++ mg/dL [facility] Interpretation and review of laboratory results Normal [facility] Ketones, UA Negative Negative - 160(16) ++++ mg/dL [facility] Leukocytes, UA Negative Negative - 500+++ Hernandez/mcL [facility] Nitrite, UA Negative Negative - Positive [facility] pH, UA 6 5 - 9 [facility] Protein, UA Negative Negative - 1999(20) ++++ mg/dL [facility] Spec Grav, UA 1.02 1 - 1.03 [facility] Urobilinogen, UA 1.0 0.2 - 12 mg/dL [facility] Laboratory - Specimen inform ationon 12-19-2024 Specimen type Nom (Spec) vaginal [facility] No Panel Informationon 12-19 GONORRHOEAE DNA(PCR) Negative Negatvie [facility] Interpretation and review of laboratory results Normal [facility] Glucose, UA Negative Negative - 1999(110) ++++ mg/dL [facility] Interpretation and review of laboratory results Normal [facility] Protein, UA Negative Negative - 1999(20) ++++ mg/dL [facility] IGP,APTIMA HPV,AGE GDLNon AGE GDLN ACOG TESTING Note . [facility] Comment on above: TESTS RESULT FLAG UN ITS REF RANGE LAB Clinician Provided Cytology Information Source.............Cervix;Endocervix No. of containers..01 ThinPrep Vial Age Algo ACOG Yolanda... FLAG LEGEND: L-Low Normal,H-High Normal,LL-Alert Low,HH-Alert High <-Panic Low,>-Panic High,A-Abnormal,AA-Critical Abnormal Performed at: 01 =G [facility] [place] [address] Allison Miller MD, IGP, RFX APTIMA HPV ASCU Note . [facility] Comment on above: TESTS RESULT FLAG UN ITS REF RANGE LAB DIAGNOSIS: 02 NEGATIVE FOR INTRAEPITHELIAL LESION OR MALIGNANCY. Specimen adequacy: 02 Satisfactory for evaluation. No endocervical component is identified. Performed by: Jay Jenkins Medical Operations Supervisor (ASC) . 02 Note: Note 02 The Pap [...] <-Panic Low,>-Panic High,A-Abnormal,AA-Critical Abnormal Performed at: [address] [address] Allison Miller MD, Performed at: =G - [facility] [id number] [employer] Team Member: Allison Miller MD, Phone: [phone] Performed at: - [facility] [id number] [employer] Team Member: Allison Miller MD, Phone: [phone] BRUSH-SPATULA CERVIX ENDOCERVIX [facility] HAILEE w/Reflex if POSon 2023 Nuclear Ab Ql (S) Negative Invalid Interpretation Code Negative [facility] Comment on above: Result Comment: Perf ormed at: [address] [id number] PhD Fara Braswell Performed By: #### 1 [id number] #### [facility] [address] [place] [address] Cortisolon 03-24-2024 Cortisol [Mass/Vol] 15.2 microgram/dL Invalid Interpretation Code 6.2-19.4 [facility] Comment on above: Result Comment: Christy luis Note: The reference interval and flagging for this test is for an AM collection. If this is a PM collection please use: Cortisol PM: 2.3-11.9 Performed at: [address] [id number] PhD Fara Braswell Performed By: #### 2 [id number] #### [facility] [address] [place] [address] FSH and LHon 03-24-2024 Follitropin Qn 7.7 m[IU]/mL Invalid Interpretation Code [facility] Comment on above: Result Comment: Adul t Female Range Follicular phase 3.5 - 12.5 Ovulation phase 4.7 - 21.5 Luteal phase 1.7 - 7.7 Postmenopausal 25.8 - 134.8 Performed at: [place] [address] [place], [place] [id number] PhD Fara Braswell Performed By: #### 1 [id number] #### [facility] [address] [place] [address] Lutropin Qn 8.6 m[IU]/mL Invalid Interpretation Code [facility] Comment on above: Result Comment: Adul t Female Range Follicular phase 2.4 - 12.6 Ovulation phase 14.0 - 95.6 Luteal phase 1.0 - 11.4 Postmenopausal 7.7 - 58.5 Performed By: #### 1 [id number] #### [facility] [address] [place] [address] Insulin Lvlon 03-24-2024 Insulin Qn 9.4 u[IU]/mL Invalid Interpretation Code 2.6-24.9 [facility] Comment on above: Result Comment: Perf ormed at: [address] [id number] PhD Fara Braswell Performed By: #### 1 [id number] #### [facility] [address] [place] [address] RF Quanton 03-24-2024 Rheumatoid factor Qn [IU]/mL Invalid Interpretation Code <14.0 [facility] Comment on above: Result Comment: Perf ormed at: [address] [id number] PhD Fara Braswell Performed By: #### 1 [id number] #### [facility] [address] [place] [address] T3 Totalon 03-24-2024 T3 [Mass/Vol] 131 ng/dL Invalid Interpretation Code 71-180 [facility] Comment on above: Result Comment: Perf ormed at: [address] [id number] PhD Fara Braswell Performed By: #### 1 [id number] #### [facility] [address] [place] [address] CMPon 03-23-2024 Albumin [Mass/Vol] 4.3 g/dL Normal 3.3-5.0 [facility] Comment on above: Performed By: #### 2 199930 #### [facility] [address] [place] [address] Albumin/Globulin (S) [Mass conc ratio] 1.4 Normal 1.1-2.2 [facility] Comment on above: Performed By: #### 2 [id number] #### [facility] [address] [place] [address] ALP [Catalytic activity/Vol] 82 Int._Unit/L Normal 21-98 [facility] Comment on above: Performed By: #### 2 [id number] #### [facility] [address] [place] [address] ALT No additional P-5'-P [Catalytic activity/Vol] 13 Int._Unit/L Normal 6-46 [facility] Comment on above: Performed By: #### 2 [id number] #### [facility] [address] [place] [address] Anion gap [Moles/Vol] 11 mmol/L Normal 6-16 [facility] Comment on above: Performed By: #### 2 019508 #### [facility] [address] [place] [address] AST [Catalytic activity/Vol] 16 Int._Unit/L Normal 5-43 [facility] Comment on above: Performed By: #### 2 851939 #### [facility] [address] [place] [address] Bilirubin [Mass/Vol] 0.8 mg/dL Normal 0.0-1.1 [facility] Comment on above: Performed By: #### 2 755432 #### [facility] [address] [place] [address] Calcium [Mass/Vol] 9.4 mg/dL Normal 8.9-11.1 [facility] Comment on above: Performed By: #### 2 508807 #### [facility] [address] [place] [address] Chloride [Moles/Vol] 104 mmol/L Normal 101-111 [facility] Comment on above: Performed By: #### 2 853601 #### [facility] [address] [place] [address] CO2 [Moles/Vol] 27 mmol/L Normal 21-31 [facility] Comment on above: Performed By: #### 2 687176 #### [facility] [address] [place] [address] Creatinine [Mass/Vol] 0.7 mg/dL Normal 0.5-1.3 [facility] Comment on above: Performed By: #### 2 884140 #### [facility] [address] [place] [address] Globulin (S) [Mass/Vol] 3.0 g/dL Normal 1.4-4.0 [facility] Comment on above: Performed By: #### 2 [id number] #### [facility] [address] [place] [address] Glucose [Mass/Vol] 89 mg/dL Normal 55-199 [facility] Comment on above: Performed By: #### 2 773286 #### [facility] [address] [place] [address] Potassium [Moles/Vol] 4.1 mmol/L Normal 3.5-5.3 [facility] Comment on above: Performed By: #### 2 980548 #### [facility] [address] [place] [address] Protein [Mass/Vol] 7.3 g/dL Normal 6.0-7.8 [facility] Comment on above: Performed By: #### 2 643774 #### [facility] [address] [place] [address] Sodium [Moles/Vol] 138 mmol/L Normal 135-145 [facility] Comment on above: Performed By: #### 2 507073 #### [facility] [address] [place] [address] Urea nitrogen [Mass/Vol] 10 mg/dL Normal 5-21 [facility] Comment on above: Performed By: #### 2 746101 #### [facility] [address] [place] [address] Urea nitrogen/Creatinine [Mass ratio] 14 No Units Normal 10-20 [facility] Comment on above: Performed By: #### 2 004324 #### [facility] [address] [place] [address] GegY9ish 03-23-2024 HbA1c (Bld) [Mass fraction] 5.1 % Normal <=5.9 [facility] Comment on above: Performed By: #### 7 [id number] #### [facility] [address] [place] [address] Lipid Panelon 03-23-2024 Cholesterol [Mass/Vol] 153 mg/dL Normal 120-200 [facility] Comment on above: Performed By: #### 2 242207 #### [facility] [address] [place] [address] Cholesterol in HDL [Mass/Vol] 45 mg/dL Invalid Interpretation Code [facility] Comment on above: Result Comment: '>= 60 LOW RISK' '<= 40 HIGH RISK' Performed By: #### 2 399457 #### [facility] [address] [place] [address] Cholesterol in LDL [Mass/Vol] 102 mg/dL Normal <=129 [facility] Comment on above: Performed By: #### 2 701561 #### [facility] [address] [place] [address] Cholesterol in VLDL [Mass/Vol] 26 mg/dL Normal 7-40 [facility] Comment on above: Performed By: #### 2 649085 #### [facility] [address] [place] [address] Triglyceride [Mass/Vol] 129 mg/dL Normal <=149 [facility] Comment on above: Performed By: #### 2 390939 #### [facility] [address] [place] [address] T4 & TSHon 03-23-2024 TSH Qn 2.00 m[IU]/L Normal 0.34-5.60 [facility] Comment on above: Performed By: #### 1 [id number] #### [facility] [address] [place] [address] T4 [Mass/Vol] 9.5 microgram/dL High 4.6-9.1 [facility] Comment on above: Performed By: #### 1 [id number] #### [facility] [address] [place] [address] eGFRon 03-23-2024 eGFR 124 mL/min/1.73 m2 Normal >=59 [facility] Comment on above: Performed By: #### 1 [id number] #### [facility] [address] [place] [address] No Panel InformationOrdered By: Manjula Nevarez on 01-20-2024 Quick Strep (POC) [facility] BhCG Quanton 06-30-2023 Beta hCG Qnt <1 Normal 1-3 [facility] Comment on above: Result Comment: 'F N ON < 1 - 3' ' 0.2 - 1 WEEK = 5 TO 50' ' 1 - 2 WEEKS = 50 - 500' ' 2 - 3 WEEKS = 100 - 5000' ' 3 - 4 WEEKS = 500 - 96105' ' 4 - 5 WEEKS = 1000 - 25565' ' 5 - 6 WEEKS = 23792 - 079026' ' 6 - 8 WEEKS = 98913 - 337785' ' 8 - 12 WEEKS = 48057 - 496179' Performed By: #### 2 052441 #### [facility] [address] [place] [address] Physician Orderon 06-30-2023 Physician Order [id number] Normal [facility] US ABD RIGHT UPPER QUADRANTo n [...] hydronephrosis. Ascites: None. IMPRESSION: No acute findings. Environment Friendly Landscape Designer: PSCB Transcribe Date/Time: Mar 13 2023 11:44A Dictated by : TANNER RAMSEY MD This examination was interpreted and the report reviewed and electronically signed by: TANNER RAMSEY MD on Mar 13 2023 11:49AM EST [id number] Normal [facility] SURGICAL PATHOLOGYOrdered By : Ayan Donaldson on 03-05-2023 Case Report Surgical Pathology R eport Case: [id number] Authorizing Provider: Shelly Parsons DO Collected: 03/03/2023 10:24 AM Ordering Location: Ambulatory Surgery Received: 03/03/2023 10:41 PM Pathologist: Ayan Donaldson MD Specimens: A) - SMALL INTESTINE BIOPSY, r/o celiac B) - STOMACH BIOPSY, r/o h pylori C) - STOMACH (GASTRIC) POLYP BIOPSY, polyps [facility] Work Phone: Diagnosis Comment d6tayNKvBPDhiSXeFILm M1xhb kXtPFZalNIeY1XtckemQFzzBY 2lHJ6ihWzxqZKhpPGyBUQcYkB dx5fjr073dLSbc3kaHTMKeumh dTy2lWlqH99kj8X7OziaZ81ul VVnRTJ3AUSnMDZtvSRnLFDcFV P7DPWouPYzZ6deBUToSR2dvzz wWDrvEEbiREDbuUZ1LGOomNFe W4NyNNFxKFriVCHzvko7MvJhN z5nuETsjRpwKCohAVEiELLzHT yeCOXzBkPtTsfjRg5hIj1dDEK adMTkXzQemVXdWEN6gY8gdUAs bjhiyblglOJdRETaUPnnXP41m PRtLZSyPC6iDTcurTEpfOedRK fwqBU6PIOqCPRzXWPvyiNpDGV uLiBUaGVyZSBpcyBubyBldmlk OV5gMACbLzGqgTJejHMhxRHwy 7MkjZCawMahHD7dmA4aiBYbdD == [facility] Work Phone: FINAL DIAGNOSIS m2ddaVJoYKFopJXeELQc M1xhb jYgQOIrgUZpU9TxtfukEQvkAN 7jME0qeNohyZYlqFEsSLNeGkS bj6kqn426uLHqh3odVDVZictt hFc7eBddO23ti9L8ErztL67wt NQlVHF3BRNoQKEmoSHuUNAmZT P3MBSquLXuU7zjPCPrAV6yucq nYOrjXDxeBQHfyZY9NLUysICn B8ZvVXGgGVscJIJqkha7GuGrK s9glXYjrHpcRRnqAVZdWZKpGT coCCWaGiQlYR2mDOWdHHJldK1 iJGQol4WdwHykrZwcOKEqWEFo TImfLUKyt3RuVM56K18iUMQ2v CJmEW8aBEGcFMxsi9K9pKXrRY Iue5GaLFjruMwgESBesshkRMK oRw3tJ2OdyVFuiXuyKbelzCU4 KlrqjM8nCN9kM1ZhXOZslZCiY SofKkWfT40ehwAlt1HoG0KufQ PtAsCikNWsd0Ige6m9xBMsXKC ecDa1PFWjCHS1oa2cGIYjrP59 nXHuCJKvYK6oXIPyICSazuFyS HOnwQBoNKXgEIClBElaJL97fx EpPuFlBJV1mlwlBC79dL75kTJ hnLpkYPOepIQxh1Qap0m5aCSu gqYrlAVkfz3hiOslETFfba1gf TNkfWL2FgmmIYGcnAQbUFJmKZ G5n06vO6inOMLcvLadokbxAjk pgHJuXJL0VSxerxErUYUOoZ0r gBXzM8plzfIvvX6ayPUaQTJyu iAtIFNlcGFyYXRlIGZyYWdtZW 46XE3bYZdhm0DrdYGni6v7yfW bCy67aBDbDW83H69uQRH4aPDj QDKkazOgwDCeRJe6dJToiUelu 2lhLlxwYXJccGFyIEpFTCAxMC 3jCt5nVCKbYTHpof4= [facility] Work Phone: Gross Description m9njtUQvFIAudSRuAAPn M1xhb qVvSTZmiPSqS6NltrphQXmmTP 1sBT2jxPrwwTLosNLtDPTuMvW he0cld064cFXhu1fuNYZKiuvh vOc9vJppE09sd9S7BskuX44md QIwGAK1TCGpOAEahWEgAFCuZT P3ZJCzwSPuM2boOTQdDA4uxcj fDDtvDUozGYLhjIJ9XRMogBPf D8PbTWTvKQbsTITlugi3CwOjM y7reHRomAabVVzrLkukpFbjz3 VjdCBcXGlkIDUxMDAwIFxcZGI mE9JHWJGxJKR1WeVgROKaQNUY PXI6DKdnIEW3YMCYXPKfTXixM cS9GYLzJDSwGEHDMJUhRiU6VC AwMDIgXFxuaCBcXHQgMSBcXGZ rKEjqfsM5r2pmBHRjfZRoJJU2 IFxcaWQgNTEwMDIgXFxkYiBPV tHxTwJ3Qvd6IvPhOcHwYIb2UD ruM8QHFNPwPSN0YgBqOAQ4HgF 2NQi1CMKCQa3rUGPnDFG0Rku3 VjSqXCO5UxWuDKb8YQJjZYygp sObVZgwAjqzJImnI38gyDZsTQ xwbGFpblxmczIyIEEuIFNNQUx PKNnGXNFUDMdZEFBRAQ9VB4vj lHUeSMGczhHku6TuBIypmLrsI GJeOuAtlOdyoP8fCdTbPJGARY MnxPLoHBBgruItc6OpILoynwQ whnYsbjRfqBboS3Wuh0NsrTHu IJIhz8pzAPGye1X1SWTjs8J9Q YEnJGQpdOJzeicvCV38XHmkWA 26PMetDG1oXUEmWxRVr1QjdYo 4FND2Mq2jsMQfOTKjyyStwyIk V8Ksh4Y5sZHyYHfwLYBluCClN UdjXBBxPJIdzQRQl3SiEJlxBD OeH1WgH2DysjT2XSFppzegXio efStgx5IkmPApIXrwFCCiEQKg JFndOURnC6BQBEGmPNJ2ZwJfX BYaQVc5SGz8MP9QNgDvHPXiAF ToAiflSFEpFLu0HNmpYW2JBWZ jJhV3TsU3PAV5MQI7Ztd6JQoe tAMbRMwye8OpDfCxAXCbCOcqx qE4DTXxnxQzr5FoLSKtDYScX6 byUyNvVXcvrcJdJMSrQQVZS75 IS3lpLsmIGEWWRSFgyiwpCCSy QRTjGjXdGMDdU9atLvAgHXVmO DnhVSSuIwRkEhLqRBo7ODInvK 5bDd5eePNadS7nGYYvEP34oRJ hkIreELHzZRNgdaPaRfX3IK5q AkYdi87xAYAmEzPzwCpyv6ArA HBuU4UmC3V6jK9eTUVdZTZgQl M5ODRlOfV0QGIvZeKxhZ5sWU2 3WIwsbQSouIGkeDF1UPOfzF9w a45iXFUbs8KdtCUtTuZhsIZeR BEbbbZfp3OdRJhapKgbMYIxDy H9UKLmhMNdVTP4GR3baVzeYMJ 0PDwrWEAaJ6RzL2YxEAuuYBQ8 VZJwGlWuXXFfUB2RHqIeSCQvF sz8PmGzZaA2UKn4GPGIXwGpRq DbAxv5SvO5XkdfWHs9KKu4ENg LGaMsSLIsOLmbQsh7FWY1VJl2 NCBcXHQgMiBcXHNzIDMgXFxmb OEyUA3jjOaxTGVxOHTtQBC3VC SquKTDb0GlVPOxJgLlBnHTTzK MCW4WZVXJLAxJOINXJhsABAQR T7mVBISVVP4NR8bboOSkIRKmm gHok1BiKJiitOfmJXNyBkZzmX cgcV5wYsLyRNRJGNGwmASrJCE xqaThi7QoQWwouyZdgaXodRhb WRWeHOSwjvFeHnV6HZ6vIoIwl 12kNAUsBqXbdDxwg0RvWPHcO0 HkR1L3rZ4yYWUmXAIlGsX5OVH yMoX5YEJhWqUbbK4uQG99RTwj fKAvpSOqpLY3BNFndJ3gd78fO LNae5PkgOLrOmyaKMQkwXZsYK LxTPHvprKHfg8sqnFdxAUptN2 qxBckwmMaDSFda4TiDZSiTINn Z7zkaoJhWV2zRGKthE0hDtuqD TUwMCBFdWNsaWQgQXZlLiwgQ2 gjdbXqVE3iMHNASAQ3KAJ5MIg vEHBryBDmVGEePwScCAWjW1hk ZTPrIFuJGA7grY3eBFNmLLUpG DIwMjMgMTozMiBBTVx+e1xlcG atp2QsyMUuPP39JYVvzNOdLCY 4LE8wyDtoJPQ6 [facility] Work Phone: Performing Lab n4bnfCWyDFEbdZPnGyLo MDAwX AYoj8bdSWKyyFYsPsMnLeJoNn RdUeswcFXuOHBmFeUnh1dzk41 7bWWqg4ruZRYdKuO3lLXpVGAj kDXxB981QYUeMXnmb3lcx7UcA VSsuLSzh9T6VNIBvvajdMn2gP scX32zi1X5EnewY9eaZIArWDZ uB7OiVN5hQEYbDjd8QNG7EEY9 YMBzIPOrC3HjHY2hTBOfgVAyE Bb2k2loyEivGQUrUVT4o4jrJK sxlgEnUE4ukl1kvLq5q3xesrZ lHEQyGLPvbFFCXJEeS4GbxIce Xj3tiCw9sMvxKkdlINH7Hjc8K L0hls16lnn1yWmrMSQlqhpoMx M1QCvyCRPpubxxEWy3NIslDGZ gnDJ7QAUfdLCnO2AoLWJyQP6e rkx9PLV3LZieMYUcQjH0WATbw AOtLVXtuGyzRZxkf968AXN4Wz FbXG3vJ2Fcw2K6eF6mxWNkDVJ lxSMjSrGbDJBxhf1elYTdWZze g6RlANY2snA8oZHunQSsMERiA P04Davst1NrHigao8GwC20nrQ U1RGcbh2bbEK5eKuJ1cuYpWBx nr2oocG6qOwV2NUixAE8yVR9y ZKNvzW4ecjhqOVXcSjYzpvoxP UPkcHgbwaKrYi0cyEbiLDX5JK ndF1cbqP6qYhR6VEbkG0gyyN2 uWPk8VAxjlAG5ORXetW7aRC0j dxuvz8vyPDirWUxqFOSecjQ3t aV4XQRhkKFkP2LulO5bUNMaYQ 0jetifx4vdDNX4CPejGWQvEZG 2OqCnVMGzw2Ewnrm6QkFza2Qv yHYkSBpqB85cu164BWRfzmDeH 1xwbGFpblxwbGFpblxmMFxmcz S4OSZuYZKxSLlnCDAvBYKbTcC cbGFuZzEwMzNcaGljaFxmMVxk DcZbWPWoLZxfG4anNfFfOwYwY eJClBJqoi4qsTaqFSgxfGQqyM FxqRI2mP6bKAUkycCpld7bZEP gaYOTuST5DOgbklYhG4zeqbea ZFVucPH7tHR1PLfbo4LhwJIwC WSiAXQhBUOLv1MsmX2mNYNuZQ DRhLK6JPipmsXrWO1EXBX2YGE tJBCxIHANLVFxFAV0AAE6NXq3 NDlccGFyXHBhclxwYXJkXHBsY IjgNPJkCABbGaKxhWwamR5kZz PrQwUoLjkfID9oZKZnW5jikWX fJAXbNGCnU9mkLbVdgS0plUqa MVxjZjJcZnMyMlxsdHJjaCBMY TDydeY8n4T4FCjzkCTrfvmrAL rclsOtEMkgscvgEXIcLHomE6s pWaNbGXUcdJdfCTerj4SrESCw ZZOhBrNbXMrrMUC9u8P6ZQ7jp vbaJk0bFQSvUJVaG00xUDJBUm QuXHBhcn0= [facility] Work Phone: [facility] Work Phone: ANES POSTPROC EVALon 023 ANES POSTPROC EVAL HNO ID: [id number] Author: Ralph Childs APRN.CRNA Service: ? Author Type: Nurse Scenario Writer Type: Anesthesia Postprocedure Evaluation Filed: 03/03/2023 10:32 [...] Anesthesia Observations No Documentation SIGNATURE: Ralph Childs APRN.SPEECH PATHOLOGIST ASSISTANT PATIENT NAME: Saroj Membreno DATE: March 03, 2023 TIME: 10:31 AM CSN: [id number] Normal [facility] EGD Study observation Narrat ibrahimamaurilio 03-03-2023 [facility] Gastroenterology Gastrointestinal Endoscopy Patient Name: Saroj Membreno Procedure Date: 03/03/2023 10:10 AM Date of : 2000 Admit Type: Outpatient Age: 23 Room: [facility] Gender: Female Note Status: Finalized Attending [...] referring physician. Procedure Code(s): --- Professional --- 74038, Esophagogastroduodenosc (more content not included)... PROVATION [facility] Radiology Study observation (narrative) [facility] HISTORY PHYSICALon HISTORY PHYSICAL HNO ID: [id number] Author: Shelly Parsons DO Service: Gastroenterology Author [...] organomegaly. Sedation Plan: MAC Additional Comments: None DO Jeanine Mann [facility] NURSING PROGon 03-03-2023 NURSING PROG HNO ID: [id number] Author: Meghann Kwan, [place] Service: Nursing Author Type: Registered Nurse Type: [...] Escalante RN In Department: AMBULATORY SURGERY [facility] NURSING PROG HNO ID: [id number] Author: Bia Price RN Service: ? Author [...] Price RN In Department: AMBULATORY SURGERY [facility] SURGICAL PATHOLOGYon 023 CASE REPORT Normal [facility] Comment on above: Order Comment: Speci men Type: TISSUE SPECIMENOrdering Facility: [facility] Address: [address] [place] [address] Result Comment: Surg ical Pathology Report Case: [id number] Authorizing Provider: Shelly Parsons DO Collected: 03/03/2023 10:24 AM Ordering Location: Ambulatory Surgery Received: 03/03/2023 10:41 PM Pathologist: Ayan Donaldson MD Specimens: A) - SMALL INTESTINE BIOPSY, r/o celiac B) - STOMACH BIOPSY, r/o h pylori C) - STOMACH (GASTRIC) POLYP BIOPSY, polyps Performed By: #### S ####[facility] LABORATORYCLIA [id number] [place] [address] [place] DIAGNOSIS COMMENT B, C. No Helicobacte r pylori organisms are identified. No intestinal metaplasia is seen. There is no evidence of dysplasia or malignancy. [facility] Comment on above: Order Comment: Speci men Type: TISSUE SPECIMENOrdering Facility: [facility] Address: [address] [place] [address] Performed By: #### S ####[facility]ORATORYCLIA [id number] [address] FINAL DIAGNOSIS Normal [facility] Comment on above: Order Comment: Speci men Type: TISSUE SPECIMENOrdering Facility: [facility] Address: [address] [place] [address] Result Comment: A. D uodenum, biopsy: - Small bowel mucosa with no diagnostic abnormality. B. Stomach, biopsy: - Superficial fragment of gastric mucosa with reactive gastropathy-type changes. - Separate fragments of gastric oxyntic-type mucosa with no diagnostic abnormality. C. Stomach, polyps, biopsies: - Fundic gland polyp. - Separate fragment of gastric oxyntic-type mucosa with foveolar hyperplasia. JEL 03/05/2023 Performed By: #### S ####[facility]ORATORYCLIA [id number] [address] OF [facility] FINAL PERFORMING LAB Normal [facility] Comment on above: Order Comment: Speci men Type: TISSUE SPECIMENOrdering Facility: [facility] Address: [address] [place] [address] Result Comment: Diag nostic interpretation performed at [facility], [address] [place] [address] CLIA# [id number] Correctional Program Specialist: Guilherme Gonzalez M.D. Performed By: #### S ####[facility]ORATORYCLIA [id number] [address] GROSS DESCRIPTION Normal [facility] Comment on above: Order Comment: Speci men Type: TISSUE SPECIMENOrdering Facility: [facility] Address: [address] [place] [address] Result Comment: A. S MALL INTESTINE BIOPSY [...] in one cassette. Gross examination performed at [facility], [facility] [place] [address] KK March 04, 2023 1:32 AM Performed By: #### S ####[facility] LABORATORYCLIA [id number] [address] Upper GI endoscopy 03-03-2 023 Upper GI endoscopy [facility] Gastroenterology Gastrointestinal Endoscopy Patient Name: Saroj Membreno Procedure Date: 03/03/2023 10:10 AM Date of : 2000 Admit Type: Outpatient Age: 23 Room: [place] [address] Gender: Female Note Status: Finalized Attending MD: [...] referring physician. Procedure Code(s): --- Professional --- 59760, Esophagogastroduodenoscop y, flexible, transoral; with biopsy, single or multiple Diagnosis Code(s): --- Professional --- K22.89, Other specified disease of esophagus K31.7, Polyp of stomach and duodenum Z01.818, Encounter for other preprocedural examination E66.01, Morbid (severe) obesity due to excess calories CPT copyright 2020 [employer]. All rights reserved. The codes documented in this report are preliminary and upon architectural technician review may be revised to meet current compliance requirements. Scope In: 10:21:13 AM Scope Out: 10:25:25 AM DO Shelly Patel DO 03/03/2023 10:30:44 AM This report has been signed electronically by Shelly Parsons DO Number of Addenda: 0 Note Initiated On: 03/03/2023 10:10 AM Estimated Blood Loss: Estimated blood loss was minimal. [facility] ANES PRE-OPon 02-16-2023 ANES PRE-OP HNO ID: [id number] Author: Ralph Childs APRN.SPEECH PATHOLOGIST ASSISTANT Service: ? Author Type: Nurse Scenario Writer Type: Anesthesia Preprocedure Evaluation Filed: 03/03/2023 10:13 [...] and consent discussed: yes. Patient / Responsible Green Party agrees to proceed: yes Patient / Surrogate [...] February 16, 2023 TIME: 2:56 PM CSN: [id number] [facility] CNOVon 02-11-2023 CNOV Office Visit (CARDAV ) ----- SAROJ MEMBRENO ([id number]) 2 F Date Time Provider Department 02/11/23 8:30 AM NURSE CARD [facility] MARIA M CARDSTIVEN During your visit today, we recorded the following information about you: Roya Lawler RN 02/11/2023 8:34 AM Signed Ekg completed. Pt with no voiced complaints. Provider cc'd of completion. Referring Provider: ALLIE LARSON [[id number]] Allergies As of Date: 02/11/2023 (No Known Allergies) Date Reviewed: 02/04/2023 Reviewed by: Sasha Xie RD - Fully Assessed Reason for Visit: Cardiology Follow Up [1732] Visit Diagnoses:Pre-op evaluation [Z01.818] Class 3 severe obesity with serious comorbidity and body mass index (BMI) of 40.0 to 44.9 in adult, unspecified obesity type (HCC) [E66.01, Z68.41] Order(s):ECG COMPLETE [ECG01] Order #: [id number]. #:[id number] Prescriptions as of 02/11/2023 - ARIPiprazole [...] Status:Closed by ROYA LAWLER on 02/11/23 [facility] ECG COMPLETEon 02-11-2023 ECG COMPLETE Ventricular Rate : 5 9 BPM Atrial Rate : 59 BPM P-R Interval : 166 ms QRS Duration : 74 ms Q-T Interval : 408 ms QTC Calculation(Bazett) : 403 ms Calculated P [place] : 35 degrees Calculated R [place] : 66 degrees Calculated T [place] : 39 degrees SINUS BRADYCARDIA WITH SINUS ARRHYTHMIA BORDERLINE ECG Confirmed by STALIN HARRIS MD ([id number]) on 02/12/2023 9:13:18 PM NAME : SAROJ MEMBRENO PID : [id number] : 2000 Gender : Female Race : ORD : [id number] Procedure Date : Feb 11 2023 08:29:59 Edit Date : Feb 12 2023 21:13:23 Diagnosis: SINUS BRADYCARDIA WITH SINUS ARRHYTHMIA BORDERLINE ECG Confirmed by STALIN HARRIS MD ([id number]) on 02/12/2023 9:13:18 PM Test Reason : Location : 192 : AVCRD Overread By : STALIN HARRIS MD Edited By : STALIN HARRIS MD Referred By : ALLIE LARSON Acquired by : , [facility] 02-10-2023 CNPN Telephone (WIQ) ----- SAROJ MEMBRENO ([id number]) 2 F Date Time Provider Department 02/10/23 CECE OBANDO WIIsidoro During your visit today, we recorded the following information about you[facility]/10/2023 10:12 AM Signed Smoking Cessation Navigation Outcome of contact: Spoke with Intervention Chosen By Patient: Other Comments: Patient quit last week. [employer] [facility]ship/Smoking Cessation Navigator: [facility] Allie Larson APRN.[facility] 02/10/2023 11:32 AM Signed Noted, thank you Allergies As of Date: 02/10/2023 (No Known Allergies) Date Reviewed: 02/04/2023 Reviewed by: Sasha iXe RD - Fully Assessed Reason for Visit: [...] Encounter Status:Closed by CECE OBANDO on 02/10/23 [facility] CNOVon 01-30-2023 CNOV Office Visit (BMIREJ ) ----- HASEEBSAROJ ([id number]) 2 F Date Time Provider Department 01/30/23 [...] goal weight prior to liquid fast: Per reconciliation machine operator Surgically Cleared with completion of the below: [...] potential med (more content not included)... Normal [facility] XR CHEST 2V FRONTAL/LATon XR CHEST [...] tissues: Unremarkable. IMPRESSION: No acute radiographic abnormality. Environment Friendly Landscape Designer: DOC Transcribe Date/Time: Jan 30 2023 12:41P Dictated by : ROD BELL MD This examination was interpreted and the report reviewed and electronically signed by: ROD BELL MD on Jan 30 2023 12:43PM EST [id number] [facility] Dereck 01-21-2023 CNPN Telephone (WIQ) ----- SAROJ MEMBRENO ([id number]) 2 F Date Time Provider Department 01/21/23 CECE OBANDO WIQ During your visit today, we recorded the following information about you: [facility] 01/21/2023 11:57 AM Signed Smoking Cessation Navigation Outcome of contact: Left Message Comments: A voicemail has been left for this patient regarding Tobacco Cessation support options. If this patient has any further questions they can email us at or call us at [phone]. [employer] Regulatory Internship/Smoking Cessation Navigator: [facility] Allergies As of Date: 01/21/2023 (Not on File) Date Reviewed: 01/19/2023 Reviewed by: Allie Larson APRN.RESPIRATORY THERAPIST ASSISTANT - Fully Assessed Reason for Visit: Smoking [...] Encounter Status:Closed by CECE OBANDO on 01/21/23 [facility] CNOVon 01-19-2023 CNOV Office Visit (GENBMI ) ----- SAROJ MEMBRENO ([id number]) 2 F Date Time Provider Department 01/19/23 9:00 AM ALLIE LARSON GENBMI During your visit today, we recorded the following information about you: Pulse Blood pressure Weight Height 84/minute 111/53 114.9 kg 1.622 m Last Period 12/29/22 Allie Larson APRN.RESPIRATORY THERAPIST ASSISTANT 01/19/2023 10:06 AM Signed BMI Obesity Medicine [...] Characterization of diet: Unstructured and skip meals. Household Personal Assistant of impaired eating habits:denies Eating Disorder no [...] Anxiety and depression Asthma No history of [place], COPD, +asthma, peptic ulcer disease, +GERD, dyslipidemia, [...] Adult) Pul (more content not included)... Normal [facility] CULTURE ABSCESSon 09-27-2022 CULTURE ABSCESS Culture [...] S F Vancomycin 1 S F Normal [facility] Comment on above: Performed By: #### A BCESCX #### [facility] [address] [address] [address] Magali Phillips AMYLASEon 09-20-2022 Amylase [Catalytic activity/Vol] 33 U/L Normal 25-115 [facility] Comment on above: Performed By: #### A MY, CMP, LIPA #### [facility] [address] [address] [address] Magali Phillips CBC AUTO DIFFon 09-20-2022 BASO # 0.0 103/ul Normal 0.0-0.1 [facility] Comment on above: Performed By: #### C BC #### [facility] [address] [address] [address] Magali Phillips Basophils/100 WBC (Bld) 0.2 % Normal 0.2-2.0 [facility] Comment on above: Performed By: #### C BC #### [facility] [address] [address] [address] Magali Phillips EO # 0.0 103/ul Normal 0.0-0.7 [facility] Comment on above: Performed By: #### C BC #### [facility] [address] [place] [address] Dr. Magali Phillips Eosinophils/100 WBC (Bld) 0.3 % Critically low 0.9-7.0 [facility] Comment on above: Performed By: #### C BC #### [facility] [address] [address] [address] Magali Phillips Erythrocyte distribution width (RBC) [Ratio] 12.4 % Normal 11.0-15.0 [facility] Comment on above: Performed By: #### C BC #### [facility] [address] [place] [address] Dr. Magali Phillips Hematocrit (Bld) [Volume fraction] 43.8 % Normal 36.0-48.0 [facility] Comment on above: Performed By: #### C BC #### [facility] [address] [address] [address] Magali Phillips Hemoglobin (Bld) [Mass/Vol] 14.9 g/dL Normal 12.0-16.0 [facility] Comment on above: Performed By: #### C BC #### [facility] [address] [address] [address] Magali Phillips IG # 0.03 10e3/ul Normal 0.00-0.03 [facility] Comment on above: Performed By: #### C BC #### [facility] [address] [place] [address] Dr. Magali Phillips IG % 0.2 % Normal 0.0-0.5 [facility] Comment on above: Performed By: #### C BC #### [facility] [address] [place] [address] Dr. Magali Phillips LYMPH # 2.6 103/ul Normal 1.2-3.8 [facility] Comment on above: Performed By: #### C BC #### [facility] [address] [place] [address] Dr. Magali Phillips Lymphocytes/100 WBC (Bld) 21.0 % Normal 20.5-60.0 [facility] Comment on above: Performed By: #### C BC #### [facility] [address] [place] [address] Dr. Magali Phillips MANUAL DIFF REQ NO Normal [facility] Comment on above: Performed By: #### C BC #### [facility] [address] [place] [address] Dr. Magali Phillips MCH (RBC) [Entitic mass] 30.2 pg Normal 26.7-34.0 [facility] Comment on above: Performed By: #### C BC #### [facility] [address] [place] [address] Dr. Magali Phillips MCHC (RBC) [Mass/Vol] 34.0 g/dL Normal 29.9-35.2 [facility] Comment on above: Performed By: #### C BC #### [facility] [address] [place] [address] Dr. Magali Phillips MCV (RBC) [Entitic vol] 88.8 fL Normal 81.0-99.0 [facility] Comment on above: Performed By: #### C BC #### [facility] [address] [place] [address] Dr. Magali Phillips MONO # 1.0 103/ul Critically high 0.3-0.[address] [facility] Comment on above: Performed By: #### C BC #### [facility] [address] [address] [address] Magali Phillips Monocytes/100 WBC (Bld) 8.0 % Normal 1.7-12.0 [facility] Comment on above: Performed By: #### C BC #### [facility] [address] [address] [address] Magali Phillips NEUT # 8.6 103/ul Critically high 1.4-6.5 [facility] Comment on above: Performed By: #### C BC #### [facility] [address] [place] [address] Dr. Magali Phillips Neutrophils/100 WBC (Bld) 70.3 % Normal 43.0-75.0 [facility] Comment on above: Performed By: #### C BC #### [facility] [address] [place] [address] Dr. Magali Phillips Platelet mean volume (Bld) [Entitic vol] 9.6 fL Normal 9.5-13.5 [facility] Comment on above: Performed By: #### C BC #### [facility] [address] [place] [address] Dr. Magali Phillips PLT 279 103/ul Normal 150-450 [facility] Comment on above: Performed By: #### C BC #### [facility] [address] [place] [address] Dr. Magali Phillips RBC 4.93 106/ul Normal 4.20-5.40 [facility] Comment on above: Performed By: #### C BC #### [facility] [address] [place] [address] Dr. Magali Phillips WBC 12.2 103/ul Critically high 4.0-11.0 [facility] Comment on above: Performed By: #### C BC #### [facility] [address] [place] [address] Dr. Magali Phillips CULTURE URINEon 09-20-2022 CULTURE URINE Culture Observations : MODERATE GROWTH OF MIXED GENITAL DEE. NO POTENTIAL PATHOGENS SEEN. Normal [facility] Comment on above: Performed By: #### U RCX #### [facility] [address] [place] [address] Dr. Magali Phillips ER URINE PROFILEon 3 Bilirubin Ql (U) Negative Normal NEGATIVE [facility] Comment on above: Performed By: #### Mulu ESCOBEDO UMICRO #### [facility] [address] [place] [address] Dr. Magali Phillips Clarity (U) CLEAR Normal CLEAR [facility] Comment on above: Performed By: #### MEGA CLAROSRO #### [facility] [address] [place] [address] Dr. Magali Phillips Color (U) LT. YELLOW Normal YELLOW [facility] Comment on above: Performed By: #### MEGA CLAROSRO #### [facility] [address] [place] [address] Dr. Magali Phillips ERUAHMahnaz A micrscopic examina tion will be performed if indicated. Normal [facility] Comment on above: Performed By: #### MEGA CLAROSRO #### [facility] [address] [place] [address] Dr. Magali Phillips Glucose Ql (U) Negative Normal NEGATIVE [facility] Comment on above: Performed By: #### MEGA CLAROSRO #### [facility] [address] [place] [address] Dr. Magali Phillips Hemoglobin Ql (U) MODERATE Abnormal NEGATIVE [facility] Comment on above: Performed By: #### MEGA CLAROSRO #### [facility] [address] [place] [address] Dr. Magali Phillips Ketones Ql (U) Negative Normal NEGATIVE [facility] Comment on above: Performed By: #### MEGA CLAROSRO #### [facility] [address] [place] [address] Dr. Magali Phillips LEUKOCYTES MODERATE Abnormal NEGATIVE [facility] Comment on above: Performed By: #### Mulu ESCOBEDO UMICRO #### [facility] [address] [place] [address] Dr. Magali Phillips Nitrite Ql (U) Negative Normal NEGATIVE [facility] Comment on above: Performed By: #### Mulu ESCOBEDO, UMICRO #### [facility] [address] [place] [address] Dr. Magali Phillips pH (U) 5.5 [pH] Normal 5-9 [facility] Comment on above: Performed By: #### Mulu ESCOBEDO, UMICRO #### [facility] [address] [place] [address] Dr. Magali Phillips SPEC GRAVITY 1.025 Normal 1.005-<=1.[address] [place] [address] Comment on above: Performed By: #### Mulu ESCOBEDO, ICRO #### [facility] [address] [place] [address] Dr. Magali Phillips UA PROTEIN Negative Normal NEGATIVE/ TRACE [facility] Comment on above: Performed By: #### Mulu ESCOBEDO ICRO #### [facility] [address] [place] [address] Dr. Magali Phillips UR MICRO IND INDICATED Normal [facility] Comment on above: Performed By: #### Mulu ESCOBEDO ICRO #### [facility] [address] [place] [address] Dr. Magali Phillips Urobilinogen Qn (U) 0.2 {Nickie'U}/dL Normal 0.2 - 1. 0 [facility] Comment on above: Performed By: #### Mulu ESCOBEDO, ICRO #### [facility] [address] [place] [address] Dr. Magali Phillips LIPASEon 09-20-2022 Lipase [Catalytic activity/Vol] 62.0 U/L Critically low 73.0-393.0 [facility] Comment on above: Performed By: #### A MY, CMP, LIPA #### [facility] [address] [place] [address] Dr. Magali Phillips OCC BLD IMMUNO SCREENon 08-24 OCCULT BLOOD Negative Normal NEGATIVE [facility] Comment on above: Performed By: #### O BSCRN #### [facility] [address] [place] [address] Dr. Magali Phillips PROF 14(COMP METB)on 023 Albumin [Mass/Vol] 4.0 g/dL Normal 3.4-5.0 [facility] Comment on above: Performed By: #### A MY, CMP, LIPA #### [facility] [address] [address] [address] Magali Phillips Albumin/Globulin [Mass ratio] 1.0 {ratio} Normal [facility] Comment on above: Performed By: #### A MY, CMP, LIPA #### [facility] [address] [address] [address] Magali Phillips ALP [Catalytic activity/Vol] 117 U/L Critically high 46-116 [facility] Comment on above: Performed By: #### A MY, CMP, LIPA #### [facility] [address] [address] [address] Magali Phillisp ALT [Catalytic activity/Vol] 24 U/L Normal 14-59 [facility] Comment on above: Performed By: #### A MY, CMP, LIPA #### [facility] [address] [address] [address] Magali Phillips Anion gap [Moles/Vol] 12.5 mmol/L Normal [facility] Comment on above: Performed By: #### A MY, CMP, LIPA #### [facility] [address] [address] [address] Magali Phillips AST [Catalytic activity/Vol] 17 U/L Normal 15-37 [facility] Comment on above: Performed By: #### A MY, CMP, LIPA #### [facility] [address] [address] [address] Magali Phillips Bilirubin [Mass/Vol] 1.0 mg/dL Normal 0.2-1.0 [facility] Comment on above: Performed By: #### A MY, CMP, LIPA #### [facility] [address] [address] [address] Magali Phillips Calcium [Mass/Vol] 8.8 mg/dL Normal 8.5-10.1 [facility] Comment on above: Performed By: #### A MY, CMP, LIPA #### [facility] [address] [address] [address] Magali Phillips Chloride [Moles/Vol] 106 mmol/L Normal 98-107 [facility] Comment on above: Performed By: #### A MY, CMP, LIPA #### [facility] [address] [address] [address] Magali Phillips CO2 [Moles/Vol] 24.2 mmol/L Normal 21.0-32.0 [facility] Comment on above: Performed By: #### A MY, CMP, LIPA #### [facility] [address] [address] [address] Magali Phillips Creatinine [Mass/Vol] 0.71 mg/dL Normal 0.55-1.02 [facility] Comment on above: Performed By: #### A MY, CMP, LIPA #### [facility] [address] [place] [address] Dr. Magali Phillips EGFR-AF BHUTANESE >60 Normal >=60 [facility] Comment on above: Performed By: #### A MY, CMP, LIPA #### [facility] [address] [address] [address] Magali Phillips EGFR-NON AF BHUTANESE >60 Normal >=60 [facility] Comment on above: Performed By: #### A MY, CMP, LIPA #### [facility] [address] [address] [address] Magali Phillips Globulin (S) [Mass/Vol] 4.0 g/dL Normal [facility] Comment on above: Performed By: #### A MY, CMP, LIPA #### [facility] [address] [address] [address] Magali Phillips Glucose [Mass/Vol] 91 mg/dL Normal 74-106 [facility] Comment on above: Performed By: #### A MY, CMP, LIPA #### [facility] [address] [address] [address] Magali Phillips Potassium [Moles/Vol] 3.7 mmol/L Normal 3.5-5.1 [facility] Comment on above: Performed By: #### A MY, CMP, LIPA #### [facility] [address] [place] [address] Dr. Magali Phillips Protein [Mass/Vol] 8.0 g/dL Normal 6.4-8.2 [facility] Comment on above: Performed By: #### A MY, CMP, LIPA #### [facility] [address] [place] [address] Dr. Magali Phillips Sodium [Moles/Vol] 139 mmol/L Normal 136-145 [facility] Comment on above: Performed By: #### A MY, CMP, LIPA #### [facility] [address] [place] [address] Dr. Magali Phillips Urea nitrogen [Mass/Vol] 8.0 mg/dL Normal 7.0-18.0 [facility] Comment on above: Performed By: #### A MY, CMP, LIPA #### [facility] [address] [place] [address] Dr. Magali Phillips Urea nitrogen/Creatinine [Mass ratio] 11.3 mg/mg Normal [facility] Comment on above: Performed By: #### A MY, CMP, LIPA #### [facility] [address] [place] [address] Dr. Magali Phillips URINE MICROSCOPIC ONLYon BACTERIA TRACE Abnormal NONE SEEN [facility] Comment on above: Performed By: #### Mulu ESCOBEDO UMICRO #### [facility] [address] [place] [address] Dr. Magali Phillips Bacteria identified Cx Nom (U) INDICATED Normal [facility] Comment on above: Performed By: #### E FANNY UMICRO #### [facility] [address] [place] [address] Dr. Magali Phillips CAST SEEN Abnormal NONE SEEN [facility] Comment on above: Performed By: #### E FANNY UMICRO #### [facility] [address] [place] [address] Dr. Magali Phillips Crystals LM Nom (Urine sed) NONE SEEN Normal NONE SEEN [facility] Comment on above: Performed By: #### E RUR, UMICRO #### [facility] [address] [address] [address] Magali Phillips Epithelial cells LM Ql (Urine sed) FEW Abnormal NONE SEEN /RARE [facility] Comment on above: Performed By: #### E RAMONAR, UMICRO #### [facility] [address] [address] [address] Magali Phillips HYALINE CAST RARE Normal [facility] Comment on above: Performed By: #### E RUR, UMICRO #### [facility] [address] [address] [address] Magali Phillips MUCOUS NONE SEEN Normal NONE SEEN [facility] Comment on above: Performed By: #### E FANNY, UMICRO #### [facility] [address] [place] [address] Dr. Magali Phillips RBC 5-10 Abnormal 0-2 [facility] Comment on above: Performed By: #### Mulu ESCOBEDO UMICRO #### [facility] [address] [address] [address] Magali Phillips TRICH SEEN Abnormal NONE SEEN [facility] Comment on above: Performed By: #### Mulu ESCOBEDO UMICRO #### [facility] [address] [place] [address] Dr. Magali Phillips WBC 5-10 Abnormal NONE SEEN [facility] Comment on above: Performed By: #### Mulu ESCOBEDO UMICRO #### [facility] [address] [place] [address] Dr. Magali Phillips Urinalysis - AUTOMATEDon Appearance (U) clear [employer] Other Bilirubin Ql (U) Negative [employer] Other Color (U) yellow [employer] Other Glucose Ql (U) Negative [employer] Other Hemoglobin Ql (U) Negative [employer] Other Ketones Ql (U) Negative [employer] Other Leukocyte esterase Test strip Ql (U) trace [employer] Other Nitrite Ql (U) Negative [employer] Other pH (U) 6.5 [pH] [employer] Other Protein Ql (U) Negative [employer] Other Specific gravity (U) [Rel density] 1.025 [employer] Other Urobilinogen (U) [Mass/Vol] 1.0 mg/dL [employer] Other Urinalysis - AUTOMATED [employer] Other Urine Cultureon 07-07-2022 Bacteria identified Cx Nom (U) [employer] Other Automated erythrocytes count in urine sediment (number/area)Ordered By: Michelle Arthur on 07-04-2022 RBC Auto (Urine sed) [#/Area] 3-4 [HPF] 0-4 [facility] Automated leukocytes count i n urine sediment (number/area)Ordered By: Michelle Arthur on 07-04-2022 WBC Auto (Urine sed) [#/Area] 5-9 [HPF] 0-4 [facility] Bilirubin Test strip Ql (U)O rdered By: Michelle Arthur on 07-04-2022 Bilirubin Ql (U) Negative Negative [facility] Color Auto (U)Ordered By: Joanne Arthur on 07-04-2022 Color (U) Yellow Yellow [facility] HCG ( test) IA.rapi d Ql (U)Ordered By: Michelle Ortizimojhann on 07-04-2022 HCG ( test) Ql (U) Negative [facility] Ketones Auto test strip (U) [Mass/Vol]Ordered By: Michelle Arthur on 07-04-2022 Ketones (U) [Mass/Vol] Negative Negative [facility] Laboratory - UrinalysisOrder ed By: Michelle Arthur on 07-04-2022 Hyaline casts LM Ql (Urine sed) 0-8 [LPF] 0-8 [facility] Nitrite Test strip Ql (U)Ord ered By: Michelle Arthur on 07-04-2022 Nitrite Ql (U) Negative Negative [facility] Protein Auto test strip (U) [Mass/Vol]Ordered By: Michelle Arthur on 07-04-2022 Protein (U) [Mass/Vol] Negative Negative [facility] Specific gravity Auto test s trip (U) [Rel density]Ordered By: Michelle Arthur on 07-04-2022 Specific gravity (U) [Rel density] 1.016 1.001-1.030 [facility] Squamous epithelial cells de tection in urine sediment by light microscopyOrdered By: Michelle Arthur on 07-04-2022 Epithelial cells.squamous LM Ql (Urine sed) 1-2 [HPF] 0-2 [facility] Urine bacteria detection by automated methodOrdered By: Michelle Arthur on 07-04-2022 Bacteria Auto Ql (U) None seen None Seen [facility] Urine clarity by refractomet ry automatedOrdered By: Michelle Arthur on 07-04-2022 Clarity Refractometry automated (U) Clear Clear [facility] Urine culture routineOrdered By: Michelle Arthur on 07-04-2022 Bacteria identified Cx Nom (U) 2 Days [facility] Urine glucose measurement by automated test strip (mass/volume)Ordered By: Michelle Arthur on 07-04-2022 Glucose Auto test strip (U) [Mass/Vol] Normal mg/dL Normal [facility] Urine hemoglobin detection b y automated test stripOrdered By: Michelle Arthur on 07-04-2022 Hemoglobin Auto test strip Ql (U) Negative Negative [facility] Urine leukocyte esterase det ection by automated test stripOrdered By: Michelle Arthur on 07-04-2022 Leukocyte esterase Auto test strip Ql (U) 2+ Negative [facility] Urobilinogen Auto test strip (U) [Mass/Vol]Ordered By: Michelle Arthur on 07-04-2022 Urobilinogen (U) [Mass/Vol] Normal mg/dL Normal [facility] pH Auto test strip (U)Ordere d By: Michelle Arthur on 07-04-2022 pH (U) 7.0 [pH] 5.0-9.0 [facility] COVID Quick Testingon 2020 Result Negative [employer] Other Vital Signs Date Time Vital Sign Value Performing Clinician Facility 02-07-2025 10:25-0400 Body mass index (BMI) [Ratio] 52.66 kg/m2 Ira ELMORE Work Phone: [facility] 02-07-2025 10:25-0400 Body weight 134.83 kg Ira ELMORE Work Phone: [facility] 02-07-2025 10:25-0400 Diastolic blood pressure 70 mm[Hg] Ira ELMORE Work Phone: [facility] 02-07-2025 10:25-0400 Systolic blood pressure 100 mm[Hg] Ira ELMORE Work Phone: [facility] 02-06-2025 22:42-0400 Body height 157.48 cm [facility] 02-06-2025 22:42-0400 Body temperature 98.3 [degF] [facility] 02-06-2025 22:42-0400 Body weight 136.7 kg [facility] 02-06-2025 22:42-0400 Diastolic blood pressure 72 mm[Hg] [facility] 02-06-2025 22:42-0400 Heart rate 81 /min [facility] 02-06-2025 22:42-0400 Respiratory rate 22 /min [facility] 02-06-2025 22:42-0400 SaO2% (BldA) [Mass fraction] 98 % [facility] 02-06-2025 22:42-0400 Systolic blood pressure 121 mm[Hg] [facility] 01-19-2025 09:01-0400 Body mass index (BMI) [Ratio] 52.97 kg/m2 Rodrigo Guzman DO Work Phone: [facility] 01-19-2025 09:01-0400 Body weight 135.63 kg Rodrigo Thomas DO Work Phone: [facility] 01-19-2025 09:01-0400 Diastolic blood pressure 76 mm[Hg] Rodrigo Thomas DO Work Phone: [facility] 01-19-2025 09:01-0400 Systolic blood pressure 122 mm[Hg] Rodrigo Thomas DO Work Phone: [facility] 12-19-2024 09:37-0400 Body mass index (BMI) [Ratio] 53.85 kg/m2 Wesley Visci DO Work Phone: [facility] 12-19-2024 09:37-0400 Body weight 137.89 kg Wesley Visci DO Work Phone: [facility] 12-19-2024 09:37-0400 Diastolic blood pressure 72 mm[Hg] Wesley Visci DO Work Phone: [facility] 12-19-2024 09:37-0400 Systolic blood pressure 110 mm[Hg] Wesley Visci DO Work Phone: [facility] 11-15-2024 10:13-0400 Body height 157.48 cm [facility] 11-15-2024 10:13-0400 Body mass index (BMI) [Ratio] 54.8 kg/m2 [facility] 11-15-2024 10:13-0400 Body temperature 98.4 [degF] [facility] 11-15-2024 10:13-0400 Body weight 136.07 kg [facility] 11-15-2024 10:13-0400 Diastolic blood pressure 63 mm[Hg] [facility] 11-15-2024 10:13-0400 Heart rate 76 /min [facility] 11-15-2024 10:13-0400 SaO2% (BldA) [Mass fraction] 98 % [facility] 11-15-2024 10:13-0400 Systolic blood pressure 109 mm[Hg] [facility] 11-09-2024 10:43-0400 Body temperature 98 [degF] [facility] 11-09-2024 10:43-0400 Diastolic blood pressure 69 mm[Hg] [facility] 11-09-2024 10:43-0400 Heart rate 76 /min [facility] 11-09-2024 10:43-0400 Respiratory rate 18 /min [facility] 11-09-2024 10:43-0400 SaO2% (BldA) [Mass fraction] 98 % [facility] 11-09-2024 10:43-0400 Systolic blood pressure 96 mm[Hg] [facility] 11-07-2024 11:53-0400 Body mass index (BMI) [Ratio] 53.32 kg/m2 Ira ELMORE Work Phone: [facility] 11-07-2024 11:53-0400 Body weight 136.53 kg Ira ELMORE Work Phone: [facility] 11-07-2024 11:53-0400 Diastolic blood pressure 68 mm[Hg] Ira ELMORE Work Phone: [facility] 11-07-2024 11:53-0400 Systolic blood pressure 110 mm[Hg] Ira ELMORE Work Phone: [facility] 02-02-2024 09:22-0400 Body height 157.48 cm [facility] 02-02-2024 09:22-0400 Body mass index (BMI) [Ratio] 49.6 kg/m2 [facility] 02-02-2024 09:22-0400 Body temperature 98.1 [degF] [facility] 02-02-2024 09:22-0400 Body weight 123.09 kg [facility] 02-02-2024 09:22-0400 Heart rate 81 /min [facility] 02-02-2024 09:22-0400 Respiratory rate 18 /min [facility] 02-02-2024 09:22-0400 SaO2% (BldA) [Mass fraction] 99 % [facility] 01-20-2024 12:01-0400 Body height 157.48 cm [facility] 01-20-2024 12:01-0400 Body mass index (BMI) [Ratio] 48.9 kg/m2 [facility] 01-20-2024 12:01-0400 Body temperature 98.3 [degF] [facility] 01-20-2024 12:01-0400 Body weight 121.27 kg [facility] 01-20-2024 12:01-0400 Heart rate 107 /min [facility] 01-20-2024 12:01-0400 Respiratory rate 18 /min [facility] 01-20-2024 12:01-0400 SaO2% (BldA) [Mass fraction] 99 % [facility] 11-13-2023 10:26-0400 Body height 157.48 cm [facility] 11-13-2023 10:26-0400 Body mass index (BMI) [Ratio] 49 kg/m2 [facility] 11-13-2023 10:26-0400 Body temperature 97.8 [degF] [facility] 11-13-2023 10:26-0400 Body weight 121.56 kg [facility] 11-13-2023 10:26-0400 Heart rate 82 /min [facility] 11-13-2023 10:26-0400 SaO2% (BldA) [Mass fraction] 98 % [facility] 09-16-2023 09:45-0400 Body height 157.48 cm [facility] 09-16-2023 09:45-0400 Body mass index (BMI) [Ratio] 48.4 kg/m2 [facility] 09-16-2023 09:45-0400 Body temperature 98.6 [degF] [facility] 09-16-2023 09:45-0400 Body weight 120.25 kg [facility] 09-16-2023 09:45-0400 Heart rate 51 /min [facility] 09-16-2023 09:45-0400 Respiratory rate 18 /min [facility] 09-16-2023 09:45-0400 SaO2% (BldA) [Mass fraction] 98 % [facility] 03-03-2023 10:45-0400 Heart rate 67 /min Shelly Ly DO Work Phone: [facility] 03-03-2023 10:45-0400 Respiratory rate 12 /min Shelly Ly DO Work Phone: [facility] 03-03-2023 10:45-0400 SaO2% (BldA) [Mass fraction] 100 % Shelly Ly DO Work Phone: [facility] 03-03-2023 10:40-0400 Diastolic blood pressure 72 mm[Hg] Shelly Ly DO Work Phone: [facility] 03-03-2023 10:40-0400 Systolic blood pressure 115 mm[Hg] Shelly Ly DO Work Phone: [facility] 02-04-2023 10:25-0400 Body height 162.[address] Work Phone: [facility] 02-04-2023 10:25-0400 Body weight 113.[address] Work Phone: [facility] 01-19-2023 09:24-0400 Body height 162.2 cm Allie Larson EMBOSSING CALENDER OPERATOR.RESPIRATORY THERAPIST ASSISTANT Work Phone: [facility] 01-19-2023 09:24-0400 Body weight 114.92 kg Allie Neo EMBOSSING CALENDER OPERATOR.RESPIRATORY THERAPIST ASSISTANT Work Phone: [facility] 01-19-2023 09:24-0400 Diastolic blood pressure 53 mm[Hg] Allie Neo EMBOSSING CALENDER OPERATOR.RESPIRATORY THERAPIST ASSISTANT Work Phone: [facility] 01-19-2023 09:24-0400 Heart rate 84 /min Allie Larson EMBOSSING CALENDER OPERATOR.RESPIRATORY THERAPIST ASSISTANT Work Phone: [facility] 01-19-2023 09:24-0400 Systolic blood pressure 111 mm[Hg] Allie Neo EMBOSSING CALENDER OPERATOR.RESPIRATORY THERAPIST ASSISTANT Work Phone: [facility] 07-07-2022 17:00-0500 Body height 160.02 cm Radhika Enrique Other [facility] Other 07-07-2022 17:00-0500 Body mass index (BMI) [Ratio] 48.35 kg/m2 Radhika Enrique Other [facility] Other 07-07-2022 17:00-0500 Body temperature 98 [degF] Radhika Jovelmond Other [facility] Other 07-07-2022 17:00-0500 Body weight 123.83 kg Radhika Jovelmond Other [facility] Other 07-07-2022 17:00-0500 Diastolic blood pressure 60 mm[Hg] Radhika Jovelmond Other [facility] Other 07-07-2022 17:00-0500 Respiratory rate 18 /min Radhika Enrique Other [facility] Other 07-07-2022 17:00-0500 SaO2% (BldA) [Mass fraction] 99 % Radhika Enrique Other [facility] Other 07-07-2022 17:00-0500 Systolic blood pressure 111 mm[Hg] Radhika Jovelmond Other [facility] Other 07-04-2022 11:16-0500 Body height 160.02 cm [facility] 07-04-2022 11:16-0500 Body temperature 97.8 [degF] [facility] 07-04-2022 11:16-0500 Body weight 124 kg [facility] 07-04-2022 11:16-0500 Diastolic blood pressure 71 mm[Hg] [facility] 07-04-2022 11:16-0500 Heart rate 75 /min [facility] 07-04-2022 11:16-0500 Respiratory rate 22 /min [facility] 07-04-2022 11:16-0500 SaO2% (BldA) [Mass fraction] 100 % [facility] 07-04-2022 11:16-0500 Systolic blood pressure 118 mm[Hg] [facility] 01-27-2022 15:10-0400 Body height 160.02 cm Radhika Jovelmond Other [facility] Other 01-27-2022 15:10-0400 Body mass index (BMI) [Ratio] 46.05 kg/m2 Radhika Iva Other [facility] Other 01-27-2022 15:10-0400 Body temperature 98 [degF] Radhika Iva Other [facility] Other 01-27-2022 15:10-0400 Body weight 117.94 kg Radhika Iva Other [facility] Other 01-27-2022 15:10-0400 Diastolic blood pressure 63 mm[Hg] Radhika Iva Other [facility] Other 01-27-2022 15:10-0400 Respiratory rate 16 /min Radhika Iva Other [facility] Other 01-27-2022 15:10-0400 SaO2% (BldA) [Mass fraction] 100 % Radhika Iva Other [facility] Other 01-27-2022 15:10-0400 Systolic blood pressure 100 mm[Hg] Radhika Iva Other [facility] Other 11-11-2021 17:30-0400 Body height 160.02 cm Maria R Disla Other [facility] Other 11-11-2021 17:30-0400 Body mass index (BMI) [Ratio] 45.52 kg/m2 Maria R Disla Other [facility] Other 11-11-2021 17:30-0400 Body temperature 98.2 [degF] Maria R Disla Other [facility] Other 11-11-2021 17:30-0400 Body weight 116.58 kg Maria R Disla Other [facility] Other 11-11-2021 17:30-0400 Diastolic blood pressure 70 mm[Hg] Maria R Vacaault Other [facility] Other 11-11-2021 17:30-0400 Respiratory rate 16 /min Maria R Disla Other [facility] Other 11-11-2021 17:30-0400 SaO2% (BldA) [Mass fraction] 99 % Maria R Disla Other [facility] Other 11-11-2021 17:30-0400 Systolic blood pressure 114 mm[Hg] Maria R Disla Other [facility] Other 10-14-2021 12:00-0400 Body height 160.02 cm Maria R Vacaault Other [facility] Other 10-14-2021 12:00-0400 Body mass index (BMI) [Ratio] 46.58 kg/m2 Maria R Vacaault Other [facility] Other 10-14-2021 12:00-0400 Body temperature 98.2 [degF] Maria R Disla Other [facility] Other 10-14-2021 12:00-0400 Body weight 119.3 kg Maria R Disla Other [facility] Other 10-14-2021 12:00-0400 Diastolic blood pressure 68 mm[Hg] Maria R Disla Other [facility] Other 10-14-2021 12:00-0400 Respiratory rate 16 /min Maria R Disla Other [facility] Other 10-14-2021 12:00-0400 SaO2% (BldA) [Mass fraction] 98 % Maria R Disla Other [facility] Other 10-14-2021 12:00-0400 Systolic blood pressure 106 mm[Hg] Maria R Disla Other [facility] Other 03-30-2021 14:45-0400 Body temperature 96.4 [degF] Maria R Disla Other [facility] Other 03-30-2021 14:45-0400 SaO2% (BldA) [Mass fraction] 98 % Maria R Disla Other [facility] Other 03-07-2021 16:55-0400 Body height 160.02 cm Maria R Vacaault Other [facility] Other 03-07-2021 16:55-0400 Body mass index (BMI) [Ratio] 47.11 kg/m2 Maria R Naif Other [facility] Other 03-07-2021 16:55-0400 Body temperature 97.6 [degF] Maria R Disla Other [facility] Other 03-07-2021 16:55-0400 Body weight 120.66 kg Maria R Disla Other [facility] Other 03-07-2021 16:55-0400 Diastolic blood pressure 71 mm[Hg] Maria R Disla Other [facility] Other 03-07-2021 16:55-0400 Respiratory rate 18 /min Maria R Disla Other [facility] Other 03-07-2021 16:55-0400 SaO2% (BldA) [Mass fraction] 98 % Maria R Disla Other [facility] Other 03-07-2021 16:55-0400 Systolic blood pressure 106 mm[Hg] Maria R Disla Other [facility] Other 02-26-2021 14:00-0400 Body height 160.02 cm Maria R Disla Other [facility] Other 02-26-2021 14:00-0400 Body mass index (BMI) [Ratio] 46.05 kg/m2 Maria R Disla Other [facility] Other 02-26-2021 14:00-0400 Body temperature 97.5 [degF] Maria R Disla Other [facility] Other 02-26-2021 14:00-0400 Body weight 117.94 kg Maria R Disla Other [facility] Other 02-26-2021 14:00-0400 SaO2% (BldA) [Mass fraction] 99 % Maria R Disla Other [facility] Other Encounters Encounter Date Encounter Type Care Provider Facility Start: 02-09-2025 End: 02-09-2025 Bamboo flowsheet Ira ELMORE Work Phone: [facility] Start: 02-09-2025 End: 02-09-2025 Bamboo flowsheet Ira ELMORE Work Phone: [facility] Start: 02-07-2025 End: 02-07-2025 Bamboo flowsheet Ira ELMORE Work Phone: [facility] Start: 02-07-2025 End: 02-08-2025 Bamboo flowsheet Ira Jensen PA Work Phone: [facility] Start: 02-07-2025 End: 02-08-2025 External Result Encounter Ira ELMORE Work Phone: [facility] Unsolicited Start: 02-07-2025 End: 02-07-2025 ambulatory IRA JENSEN Not Available Start: 02-07-2025 End: 02-07-2025 Office outpatient visit 15 minutes Ira ELMORE Work Phone: [facility] Comment on above: Vaginal discharge; Second trimester ([facility]); 15 weeks gestation of ([facility]); Nausea and vomiting in ([facility]-HCC) Start: 02-06-2025 End: 02-07-2025 Emergency department patient visit -Emergency Room Work Phone: Start: 01-19-2025 End: 01-19-2025 Bamboo flowsheet Rodrigo Thomas DO Work Phone: [facility] Start: 01-19-2025 End: 01-19-2025 Bamboo flowsheet Rodrigo Thomas DO Work Phone: [facility] Start: 01-19-2025 End: 01-19-2025 Clinisync Result Encounter Carmita Will RETURNED MATERIALS INSPECTOR Work Phone: [facility] Unsolicited Start: 01-19-2025 End: 01-19-2025 Office outpatient visit 15 minutes Rodrigo Thomas DO Work Phone: [facility] Comment on above: GA: 12w3d Start: 01-19-2025 End: 01-19-2025 ambulatory RODRIGO THOMAS Not Available Start: 12-19-2024 End: 12-19-2024 ambulatory IRA JENSEN Not Available Start: 12-19-2024 End: 12-19-2024 Office outpatient visit 25 minutes Wesley A Visci DO Work Phone: [facility] Comment on above: GA: 8w0d Start: 12-19-2024 End: 12-19-2024 ambulatory WESLEY A VISCI Not Available Start: 12-02-2024 End: 12-02-2024 flow sheet [facility] Comment on above: GA: 10w5d Start: 12-02-2024 End: 12-02-2024 ambulatory IRA JENSEN Not Available Start: 11-15-2024 End: 11-15-2024 Patient encounter procedure Fred ELMORE -[facility] Work Phone: Start: 11-09-2024 End: 11-09-2024 Patient encounter procedure Rajwinder Banks APRN -[facility] Work Phone: Start: 11-07-2024 End: 11-07-2024 Bamboo flowsheet Ira ELMORE Work Phone: [facility] Start: 11-07-2024 End: 11-10-2024 Bamboo flowsheet Ira Jensen PA Work Phone: [facility] Start: 11-07-2024 End: 11-10-2024 Clinisync Result Encounter Ira ELMORE Work Phone: [facility] Unsolicited Start: 11-07-2024 End: 11-07-2024 Patient encounter procedure Ira ELMORE Work Phone: [facility] Start: 11-07-2024 End: 11-07-2024 Periodic preventive med est patient 18-39 yrs Ira ELMORE Work Phone: [facility] Comment on above: Well woman exam with routine gynecological exam Start: 11-07-2024 End: 11-07-2024 ambulatory IRA EMMA Not Available Start: 03-22-2024 End: 03-22-2024 ambulatory MARIA R DISLA Facility:[facility] Start: 02-02-2024 End: 02-02-2024 Departed Referred [facility] [place] Work Phone: Start: 02-02-2024 End: 02-02-2024 ambulatory NON STAFF [facility] Work Phone: Start: 02-02-2024 End: 02-02-2024 Patient encounter procedure [facility] Work Phone: Start: 01-20-2024 End: 01-20-2024 ambulatory NON STAFF [facility] Work Phone: Start: 01-20-2024 End: 01-20-2024 Patient encounter procedure [facility] Work Phone: Start: 11-13-2023 End: 11-13-2023 ambulatory NON STAFF [facility] Work Phone: Start: 11-13-2023 End: 11-13-2023 Patient encounter procedure [facility] Work Phone: Start: 09-16-2023 End: 09-16-2023 ambulatory [facility] Work Phone: Start: 09-16-2023 End: 09-16-2023 Patient encounter procedure [facility] Work Phone: Start: 06-30-2023 End: 06-30-2023 ambulatory MARZENA MARTINEZ Facility:[facility] Start: 04-06-2023 End: 04-06-2023 ambulatory NETTA DILLARD Facility:[facility] Start: 03-12-2023 ambulatory [facility] Facility: [facility] Start: 03-12-2023 End: 03-12-2023 Preprocedural examination done Ultra 2 Work Phone: [facility] Start: 03-12-2023 End: 03-12-2023 Subsequent hospital visit by physician [facility] Work Phone: [facility] Radiology Ultrasound Comment on above: Pre-op evaluation [Z 01.818] Start: 03-03-2023 End: 03-03-2023 ambulatory SHELLY PARSONS Facility:[facility] Start: 03-03-2023 End: 03-03-2023 Subsequent hospital visit by physician Shelly Parsons DO Work Phone: Ambulatory Surgery Comment on above: Class 3 severe obesi ty with serious comorbidity and body mass index (BMI) of 40.0 to 44.9 in adult, unspecified obesity type (HCC) [E66.01, Z68.41] Start: 02-25-2023 ambulatory Nurse Janis [facility] Work Phone: Gastroenterology Comment on above: EGD instructions Start: 02-25-2023 E-mail encounter fro m caregiver Nurse Janis [facility] Work Phone: [facility] Start: 02-11-2023 End: 02-12-2023 ambulatory [facility] Facility:[facility] Start: 02-11-2023 End: 02-11-2023 ambulatory [facility] Facility:[facility] Start: 02-11-2023 Encounter for other preprocedural examination SHELLY PARSONS [facility] Start: 02-11-2023 End: 02-11-2023 Patient encounter procedure Nurse Card [facility] Work Phone: Cardiology Comment on above: Pre-op evaluation; Class 3 severe obesity with serious comorbidity and body mass index (BMI) of 40.0 to 44.9 in adult, unspecified obesity type (HCC) Start: 02-11-2023 End: 02-11-2023 Preprocedural examination done Nurse Rej Work Phone: [facility] Start: 02-10-2023 Telephone encounter Cece Re [facility] Comment on above: Smoking Cessation Start: 02-04-2023 End: 02-04-2023 ambulatory SASHA ROJAS Facility:[facility] Start: 02-04-2023 End: 02-04-[address] Work Phone: Nutrition Comment on above: Body mass index (BMI ) 40.0-44.9, adult (HCC) (Primary Dx); Dietary counseling and surveillance Start: 02-04-2023 End: 02-04-2023 Telemedicine consultation with patient Sasha Xie RD Work Phone: [facility] Start: 02-01-2023 Chart abstracting [facility] Work Phone: Neurology Start: 01-30-2023 ambulatory [facility] Facility: [facility] Start: 01-30-2023 Encounter for other preprocedural examination [facility] Start: 01-30-2023 End: 01-30-2023 ambulatory NORBERTO MALONE Facility:[facility] Start: 01-30-2023 End: 01-30-2023 Preprocedural examination done [facility] Work Phone: [facility] Start: 01-30-2023 End: 01-30-2023 Subsequent hospital visit by physician [facility] Work Phone: [facility] Radiology General Comment on above: Pre-op evaluation [Z 01.818] Start: 01-19-2023 End: 01-20-2023 ambulatory [facility] Facility:[facility] Start: 01-19-2023 End: 01-19-2023 Patient encounter procedure Allie Larson APRN.RESPIRATORY THERAPIST ASSISTANT Work Phone: General Surgery Comment on above: Pre-op evaluation (P rimary Dx); Class 3 severe obesity with serious comorbidity and body mass index (BMI) of 40.0 to 44.9 in adult, unspecified obesity type (HCC); Vapes nicotine containing substance; Marijuana smoker Start: 01-19-2023 End: 01-19-2023 Preprocedural examination done Allie Larson APRN.RESPIRATORY THERAPIST ASSISTANT Work Phone: [facility] Work Phone: Start: 09-23-2022 End: 09-23-2022 ambulatory MARIA R NAIF Facility:[facility] Start: 09-20-2022 End: 09-20-2022 ambulatory MARIA R NAIF Facility:[facility] Start: 07-07-2022 End: 07-07-2022 Departed Referred [facility] [place] Work Phone: Start: 07-07-2022 End: 07-07-2022 ambulatory NON STAFF [facility] Work Phone: Start: 07-07-2022 Office outpatient vi sit 25 minutes Radhika Enrique [facility] Start: 07-04-2022 End: 07-04-2022 Emergency department patient visit [facility] Work Phone: Start: 06-17-2022 End: 06-17-2022 ambulatory Maria R Naif Other [facility] Other Start: 06-17-2022 Telephone encounter Maria R Breaul t [facility] Start: 05-01-2022 End: 05-01-2022 ambulatory MARIA R NAIF Facility:[facility] Start: 03-24-2022 End: 03-24-2022 ambulatory Maria R Naif Other [facility] Other Start: 03-24-2022 Telephone encounter Maria R Breaul t [facility] Start: 01-27-2022 End: 01-27-2022 ambulatory Radhika Iva Other [facility] Other Start: 01-27-2022 Office outpatient vi sit 15 minutes Radhika Iva [facility] Start: 01-14-2022 End: 01-14-2022 ambulatory MARIA R NAIF Facility:[facility] Start: 11-26-2021 End: 11-26-2021 ambulatory Maria R Naif Other [facility] Other Start: 11-26-2021 Office outpatient vi sit 15 minutes Maria R Naif [facility] Start: 11-11-2021 End: 11-11-2021 ambulatory Maria R Naif Other [facility] Other Start: 11-11-2021 Office outpatient vi sit 25 minutes Maria R Naif [facility] Start: 10-28-2021 End: 10-28-2021 ambulatory MARIA R NAIF Facility:[facility] Start: 10-14-2021 End: 10-14-2021 ambulatory Maria R Naif Other [facility] Other Start: 10-14-2021 Office outpatient vi sit 15 minutes Maria R Naif [facility] Start: 08-18-2021 End: 08-18-2021 ambulatory Maria R Naif Other [facility] Other Start: 08-18-2021 Telephone encounter Maria R Nolaaul t [facility] Start: 06-21-2021 End: 06-21-2021 ambulatory Radhika Iva Other [facility] Other Start: 06-21-2021 Office outpatient vi sit 5 minutes Radhika Iva [facility] Start: 05-28-2021 End: 05-28-2021 ambulatory Maria R Naif Other [facility] Other Start: 05-28-2021 Telephone encounter Maria R simmons [facility] Start: 04-10-2021 End: 04-10-2021 ambulatory Maria R Disla Other [facility] Other Start: 04-10-2021 Telephone encounter Maria R simmons [facility] Start: 03-30-2021 End: 03-30-2021 ambulatory Maria R Disla Other [facility] Other Start: 03-30-2021 Office outpatient vi sit 15 minutes Maria R Disla [facility] Start: 03-07-2021 Office outpatient vi sit 15 minutes Maria Remily Disla [facility] Start: 02-26-2021 Office outpatient vi sit 15 minutes Maria Remily Disla [facility] Procedures Date Procedure Procedure Detail Performing Clinician Start: 02-07-2025 RECURRENT VAGINITIS (HTRX) Ira ELMORE Work Phone: Start: 02-07-2025 Urnls dip stick/tablet rgnt non-auto w/o micrscp Ira ELMORE Work Phone: Start: 01-19-2025 BOX TEST Carmita Will RETURNED MATERIALS INSPECTOR Work Phone: Start: 01-19-2025 Urnls dip stick/tablet rgnt non-auto w/o micrscp Rodrigo Guzman DO Work Phone: Start: 12-19-2024 Chlamydia culture Wesley Visci DO Work Phone: Start: 12-19-2024 Iadna chlamydia trachomatis amplified probe tq Wesley A Visci DO Work Phone: Start: 12-19-2024 Urnls dip stick/tablet rgnt non-auto w/o micrscp Wesley A Visci DO Work Phone: Start: 11-07-2024 IGP,APTIMA HPV,AGE GDLN Ira ELMORE Work Phone: Start: 01-20-2024 Quick Strep (POC) Start: 11-13-2023 X-ray of right ankle Start: 11-13-2023 X-ray of right foot Start: 03-12-2023 Us abdominal real time w/image limited Allie Larson APRN.RESPIRATORY THERAPIST ASSISTANT Work Phone: Start: 03-03-2023 Level iv surg pathology gross&microscopic exam Shelly Jaqueline DO Work Phone: Start: 03-03-2023 Esophagogastroduodenoscopy transoral diagnostic Norberto Malone MD Work Phone: Start: 02-11-2023 Ecg routine ecg w/least 12 lds i&r only Allie Larson EMBOSSING CALENDER OPERATOR.RESPIRATORY THERAPIST ASSISTANT Work Phone: Start: 01-30-2023 Radiologic exam chest 2 views Allie melo EMBOSSING CALENDER OPERATOR.RESPIRATORY THERAPIST ASSISTANT Work Phone: Start: 07-04-2022 Urine culture Plan of Treatment Date Care Activity Detail Author Start: 07-07-2032 Urine microalbumin profile [facility] Start: 03-06-2025 End: 03-06-2025 Patient encounter procedure 03/06/2025 10:00 AM EDT Routine [facility] [address] [place] [phone] Rodrigo Guzman DO [address] [place] [address] [facility] Start: 02-20-2025 End: 02-20-2025 Patient encounter procedure 02/20/2025 11:30 AM EDT Routine [facility] [address] [place] [address] Carmita Will, RETURNED MATERIALS INSPECTOR [address] [place] [phone] [facility] Start: 02-09-2025 End: 02-09-2025 Patient encounter procedure 02/09/2025 2:40 PM EDT Routine [facility] [address] [place] [phone] Ira Jensen PA [address] [place] [address] Arrived [facility] Comment on above: Arrived Start: 01-23-2025 Influenza vaccination [facility] Start: 01-19-2025 End: 01-19-2025 ambulatory 01/19/2025 8:50 AM EDT Initial [facility] [address] [place] [phone] Rodrigo Guzman DO [address] [place], [place] [phone] Arrived [facility] Comment on above: Arrived Start: 01-16-2025 End: 01-16-2025 Patient encounter procedure 01/16/2025 11:45 AM EDT Routine [facility] [place] [facility] [address] [place] [phone] Wesley Browning A, DO [address] [place] [address] [facility] Start: 12-19-2024 End: 12-19-2024 ambulatory 12/19/2024 9:15 AM EDT Initial [facility] [address] [place] [phone] Visci Wesley A, DO [address] [place] [address] [facility] Start: 12-02-2024 End: 12-02-2025 Bacteria identified in Urine by Culture Urine culture Microbiology Routine Encounter for supervision of normal first in first trimester ([facility]) Expected: 12/02/2024, Expires: 12/02/2025 [facility] Comment on above: Expected: 12/02/2024 , Expires: 12/02/2025 Start: 12-02-2024 End: 12-02-2025 BEACON CARRIER SCREEN;14 GENES BEACON CARRIER SCREEN;14 GENES Lab Routine Screening for genetic disease carrier status Expected: 12/02/2024 (Approximate), Expires: 12/02/2025 [facility] Comment on above: Expected: 12/02/2024 (Approximate), Expires: 12/02/2025 Start: 12-02-2024 End: 12-02-2025 Blood type and Indirect antibody screen panel - Blood Type and screen Lab Routine Encounter for supervision of normal first in first trimester ([facility]) Expected: 12/02/2024, Expires: 12/02/2025 [facility] Comment on above: Expected: 12/02/2024 , Expires: 12/02/2025 Start: 12-02-2024 End: 12-02-2025 CBC W Auto Differential panel - Blood CBC and differential Lab Routine Encounter for supervision of normal first in first trimester ([facility]) Expected: 12/02/2024, Expires: 12/02/2025 [facility] Comment on above: Expected: 12/02/2024 , Expires: 12/02/2025 Start: 12-02-2024 End: 12-02-2025 DRUG SCREEN 17 W/CONF, UR DRUG SCREEN 17 W/CONF, UR Lab Routine Encounter for drug screening Expected: 12/02/2024, Expires: 12/02/2025 [facility] Comment on above: Expected: 12/02/2024 , Expires: 12/02/2025 Start: 12-02-2024 End: 12-02-2025 Hepatitis B virus surface Ag [Presence] in Serum or Plasma by Immunoassay Hepatitis B surface antigen Lab Routine Encounter for supervision of normal first in first trimester ([facility]) Expected: 12/02/2024, Expires: 12/02/2025 [facility] Comment on above: Expected: 12/02/2024 , Expires: 12/02/2025 Start: 12-02-2024 End: 12-02-2025 Hepatitis C virus Ab [Presence] in Serum or Plasma by Immunoassay Hepatitis C antibody Lab Routine Encounter for supervision of normal first in first trimester ([facility]) Expected: 12/02/2024, Expires: 12/02/2025 [facility] Comment on above: Expected: 12/02/2024 , Expires: 12/02/2025 Start: 12-02-2024 End: 12-02-2025 HIV-2 antigen assay HIV-2 antigen Lab Routine Encounter for supervision of normal first in first trimester ([facility]) Expected: 12/02/2024, Expires: 12/02/2025 [facility] Comment on above: Expected: 12/02/2024 , Expires: 12/02/2025 Start: 12-02-2024 End: 12-02-2025 [id number] PLUS Core+SCA [id number] PLUS Core+SCA Lab Routine Encounter for screening for chromosomal anomalies ([facility]) Expected: 12/02/2024 (Approximate), Expires: 12/02/2025 [facility] Comment on above: Expected: 12/02/2024 (Approximate), Expires: 12/02/2025 Start: 12-02-2024 End: 12-02-2025 Rpr (dx) w/refl titer and confirmatory testing Rpr (dx) w/refl titer and confirmatory testing Lab Routine Encounter for supervision of normal first in first trimester ([facility]) Expected: 12/02/2024, Expires: 12/02/2025 [facility] Comment on above: Expected: 12/02/2024 , Expires: 12/02/2025 Start: 12-02-2024 End: 12-02-2025 Rubella antibody, IgG Rubella antibody, IgG Lab Routine Encounter for supervision of normal first in first trimester ([facility]) Expected: 12/02/2024, Expires: 12/02/2025 [facility] Comment on above: Expected: 12/02/2024 , Expires: 12/02/2025 Start: 12-02-2024 End: 12-02-2025 Urinalysis complete panel - Urine Urinalysis with microscopic Lab Routine Encounter for supervision of normal first in first trimester ([facility]) Expected: 12/02/2024, Expires: 12/02/2025 [facility] Work Phone: Comment on above: Expected: 12/02/2024 , Expires: 12/02/2025 Start: 11-07-2024 End: 11-07-2024 Patient encounter procedure 11/07/2024 11:00 AM EDT Office Visit [facility] [address] [place] [phone] Ira Jensen PA [address] [place] [address] Arrived [facility] Comment on above: Arrived Start: 02-02-2024 [facility] Start: 01-24-2024 Covid-19 Vaccine ( season) Covid-19 Vaccine ( season) [facility] Start: 01-24-2024 Influenza vaccination Influenza Vacc ine (#1) [facility] Start: 01-23-2023 Influenza vaccination C [facility] Start: 01-19-2023 End: 03-21-2023 25-hydroxyvitamin D3 [Mass/volume] in Serum or Plasma VITAMIN D 25 HYDROXY Lab Routine Pre-op evaluation Class 3 severe obesity with serious comorbidity and body mass index (BMI) of 40.0 to 44.9 in adult, unspecified obesity type (HCC) Expected: 01/19/2023, Expires: 03/21/2023 [facility] Work Phone: Comment on above: Expected: 01/19/2023 , Expires: 03/21/2023 Start: 01-19-2023 End: 03-21-2023 CBC W Auto Differential panel - Blood CBC + DIFF Lab Routine Pre-op evaluation Class 3 severe obesity with serious comorbidity and body mass index (BMI) of 40.0 to 44.9 in adult, unspecified obesity type (HCC) Expected: 01/19/2023, Expires: 03/21/2023 [facility] Work Phone: Comment on above: Expected: 01/19/2023 , Expires: 03/21/2023 Start: 01-19-2023 End: 10-28-2023 Cobalamin (Vitamin B12) [Mass/volume] in Serum or Plasma VITAMIN B12 BLOOD Lab Routine Pre-op evaluation Class 3 severe obesity with serious comorbidity and body mass index (BMI) of 40.0 to 44.9 in adult, unspecified obesity type (HCC) Expected: 01/19/2023, Expires: 03/21/2023 [facility] Work Phone: Comment on above: Expected: 01/19/2023 , Expires: 03/21/2023 Start: 01-19-2023 End: 03-21-2023 Comprehensive metabolic 2000 panel - Serum or Plasma COMP METABOLIC PANEL Lab Routine Pre-op evaluation Class 3 severe obesity with serious comorbidity and body mass index (BMI) of 40.0 to 44.9 in adult, unspecified obesity type (HCC) Expected: 01/19/2023, Expires: 03/21/2023 [facility] Work Phone: Comment on above: Expected: 01/19/2023 , Expires: 03/21/2023 Start: 01-19-2023 End: 03-21-2023 Ferritin [Mass/volume] in Serum or Plasma FERRITIN BLD Lab Routine Pre-op evaluation Class 3 severe obesity with serious comorbidity and body mass index (BMI) of 40.0 to 44.9 in adult, unspecified obesity type (HCC) Expected: 01/19/2023, Expires: 03/21/2023 [facility] Work Phone: Comment on above: Expected: 01/19/2023 , Expires: 03/21/2023 Start: 01-19-2023 End: 03-21-2023 Folate [Mass/volume] in Serum or Plasma FOLATE SERUM Lab Routine Pre-op evaluation Class 3 severe obesity with serious comorbidity and body mass index (BMI) of 40.0 to 44.9 in adult, unspecified obesity type (HCC) Expected: 01/19/2023, Expires: 03/21/2023 [facility] Work Phone: Comment on above: Expected: 01/19/2023 , Expires: 03/21/2023 Start: 01-19-2023 End: 03-21-2023 Hemoglobin A1c in Blood HGB A1C Lab Routine Pre-op evaluation Class 3 severe obesity with serious comorbidity and body mass index (BMI) of 40.0 to 44.9 in adult, unspecified obesity type (HCC) Expected: 01/19/2023, Expires: 03/21/2023 [facility] Work Phone: Comment on above: Expected: 01/19/2023 , Expires: 03/21/2023 Start: 01-19-2023 End: 03-21-2023 Iron and Iron binding capacity panel - Serum or Plasma IRON + TIBC Lab Routine Pre-op evaluation Class 3 severe obesity with serious comorbidity and body mass index (BMI) of 40.0 to 44.9 in adult, unspecified obesity type (HCC) Expected: 01/19/2023, Expires: 03/21/2023 [facility] Work Phone: Comment on above: Expected: 01/19/2023 , Expires: 03/21/2023 Start: 01-19-2023 End: 03-21-2023 Lipid 1996 panel - Serum or Plasma LIPID PANEL BASIC Lab Routine Pre-op evaluation Class 3 severe obesity with serious comorbidity and body mass index (BMI) of 40.0 to 44.9 in adult, unspecified obesity type (HCC) Expected: 01/19/2023, Expires: 03/21/2023 [facility] Work Phone: Comment on above: Expected: 01/19/2023 , Expires: 03/21/2023 Start: 01-19-2023 End: 03-21-2023 Natriuretic peptide.B prohormone N-Terminal [Mass/volume] in Serum or Plasma NT PRO BNP Lab Routine Pre-op evaluation Class 3 severe obesity with serious comorbidity and body mass index (BMI) of 40.0 to 44.9 in adult, unspecified obesity type (HCC) Expected: 01/19/2023, Expires: 03/21/2023 [facility] Work Phone: Comment on above: Expected: 01/19/2023 , Expires: 03/21/2023 Start: 01-19-2023 End: 03-21-2023 NICOTINE & METAB, UR NICOTINE & METAB, UR Lab Routine Pre-op evaluation Class 3 severe obesity with serious comorbidity and body mass index (BMI) of 40.0 to 44.9 in adult, unspecified obesity type (HCC) Expected: 01/19/2023, Expires: 03/21/2023 [facility] Work Phone: Comment on above: Expected: 01/19/2023 , Expires: 03/21/2023 Start: 01-19-2023 End: 03-21-2023 Thyrotropin [Units/volume] in Serum or Plasma TSH BLD Lab Routine Pre-op evaluation Class 3 severe obesity with serious comorbidity and body mass index (BMI) of 40.0 to 44.9 in adult, unspecified obesity type (HCC) Expected: 01/19/2023, Expires: 03/21/2023 [facility] Work Phone: Comment on above: Expected: 01/19/2023 , Expires: 03/21/2023 Start: 01-19-2023 End: 03-21-2023 TOX SCREEN ROUT UR TOX SCREEN ROUT UR Lab Routine Pre-op evaluation Class 3 severe obesity with serious comorbidity and body mass index (BMI) of 40.0 to 44.9 in adult, unspecified obesity type (HCC) Expected: 01/19/2023, Expires: 03/21/2023 [facility] Work Phone: Comment on above: Expected: 01/19/2023 , Expires: 03/21/2023 Start: 01-19-2023 End: 03-21-2023 VITAMIN B1 (THIAMINE), WHOLE BLOOD VITAMIN B1 (THIAMINE), WHOLE BLOOD Lab Routine Pre-op evaluation Class 3 severe obesity with serious comorbidity and body mass index (BMI) of 40.0 to 44.9 in adult, unspecified obesity type (HCC) Expected: 01/19/2023, Expires: 03/21/2023 [facility] Work Phone: Comment on above: Expected: 01/19/2023 , Expires: 03/21/2023 Start: 07-07-2022 Bacteria identified in Urine by Culture [facility] Start: 2022 PAP TESTING PAP TESTING [facility] Start: 2022 Screening for malign ant neoplasm of cervix Cervical Cancer Screening [facility] Start: 2019 ANNUAL PCP TEAM BABCOCK TESTER ELLEN DISEASE VISIT ANNUAL PCP TEAM CHRONIC DISEASE VISIT [facility] Start: 2019 CHLAMYDIA SCREENING (18-24) CHLAMYDIA SCREENING (18-24) [facility] Start: 2019 GC (GONORRHEA) SCREE KATIA (18-24) GC (GONORRHEA) SCREENING (18-24) [facility] Start: 2019 HEPATITIS C SCREENING HEPATITIS C [facility] Start: 2019 Hepatitis C screening Hepatitis C [facility] Start: 2019 HIV SCREENING HIV SCREENING [facility] Start: 2019 HIV screening HIV Screening [facility] Start: 2019 Screening for Chlamy melvin trachomatis Chlamydia Screening (18) [facility] Start: 2019 SPIROMETRY SPIROMETRY [facility] Start: 2017 Meningococcal B Vacc ine: Consider Based On Risk (1 of 2 - Patient Seeks Protection) Meningococcal B Vaccine: Consider Based On Risk (1 of 2 - Patient Seeks Protection) [facility] Start: 2017 MENINGOCOCCAL B: Consider based on risk (1 of 2 - Patient Seeks Protection) MENINGOCOCCAL B: Consider based on risk (1 of 2 - Patient Seeks Protection) [facility] Start: 2015 PEDS TO ADULT TRANSI TION ANNUAL ASSESSMENT PEDS TO ADULT TRANSITION ANNUAL ASSESSMENT [facility] Start: 2013 PEDS TO ADULT TRANSI TION INITIAL DISCUSSION PEDS TO ADULT TRANSITION INITIAL DISCUSSION [facility] Start: 2007 PNEUMOCOCCAL (1 - PCV) PNEUMOCOCCAL (1 - PCV) [facility] Start: 2007 Pneumococcal vaccination Pneum ococcal Vaccine (1 - PCV) [facility] Start: 2001 COVID-19 VACCINE (#1) COVID-19 VACCI NE (#1) [facility] Atopobium vaginae DN A [Presence] in Vaginal fluid by HANNY with probe detection [facility] Bacterial vaginosis associated bacterium 2 DNA [Presence] in Vaginal fluid by HANNY with probe detection [facility] CHLAMYDIA TRACHOMATI S (GENITO/STI) CHLAMYDIA TRACHOMATIS (GENITO/STI) Lab Routine Vaginal discharge Ordered: 02/07/2025 [facility] Comment on above: Ordered: 02/07/2025 Cytology Cervical or vaginal smear or scraping study Pap Smear Pathology and Cytology Routine Well woman exam with routine gynecological exam Ordered: 11/07/2024 [employer] Work Phone: Comment on above: Ordered: 11/07/2024 End: 01-20-2024 ECG COMPLETE ECG COMPLETE ECG Routine Pre-op evaluation Class 3 severe obesity with serious comorbidity and body mass index (BMI) of 40.0 to 44.9 in adult, unspecified obesity type (HCC) 1 Occurrences starting 01/19/2023 until 01/20/2024 [facility] Work Phone: Comment on above: 1 Occurrences starti ng 01/19/2023 until 01/20/2024 ECG COMPLETE ECG COMPLETE ECG Routine Pre-op evaluation Class 3 severe obesity with serious comorbidity and body mass index (BMI) of 40.0 to 44.9 in adult, unspecified obesity type (HCC) 02/11/2023 8:29 AM EDT [facility] Work Phone: Hemoglobin A1c/Hemoglobin.total in Blood Hemoglobin A1c Lab Routine First trimester ([facility]) 12 weeks gestation of ([facility]) Ordered: 01/19/2025 [employer] Work Phone: Comment on above: Ordered: 01/19/2025 End: 01-19-2024 HOME SLEEP APNEA TEST (HSAT) HOME SLEEP APNEA TEST (HSAT) Procedures Routine Pre-op evaluation Class 3 severe obesity with serious comorbidity and body mass index (BMI) of 40.0 to 44.9 in adult, unspecified obesity type (HCC) 1 Occurrences starting 01/19/2023 until 01/19/2024 [facility] Work Phone: Comment on above: 1 Occurrences starti ng 01/19/2023 until 01/19/2024 IGP,rfx Apt HPV ASCU,16/18,45 IGP,rfx Apt HPV ASCU,16/18,45 Lab Routine 13 weeks gestation of ([facility]) Screening for malignant neoplasm of cervix Ordered: 12/19/2024 [employer] Work Phone: Comment on above: Ordered: 12/19/2024 Megasphaera sp type 1 DNA [Presence] in Vaginal fluid by HANNY with probe detection [facility] Neisseria gonorrhoea e DNA [Presence] in Unspecified specimen by HANNY with probe detection Neisseria gonorrhea DNA probe, direct Lab Routine Vaginal discharge Ordered: 02/07/2025 [facility] Comment on above: Ordered: 02/07/2025 Patient Education Sinusitis in adults [facility] Work Phone: Patient referral [facility] Work Phone: End: 02-18-2024 Radiologic exam chest 2 views XR CHEST 2V FRONTAL/LAT Radiology Routine Pre-op evaluation Class 3 severe obesity with serious comorbidity and body mass index (BMI) of 40.0 to 44.9 in adult, unspecified obesity type (HCC) 1 Occurrences starting 01/19/2023 until 02/18/2024 [facility] Work Phone: Comment on above: 1 Occurrences starti ng 01/19/2023 until 02/18/2024 SURESWAB(R) ADVANCED VAGINITIS PLUS, TMA SURESWAB(R) ADVANCED VAGINITIS PLUS, TMA Pathology and Cytology Routine Vaginal discharge Ordered: 02/07/2025 [facility] [employer] Work Phone: Comment on above: Ordered: 02/07/2025 End: 02-18-2024 US ABD RIGHT UPPER QUADRANT US ABD RIGHT UPPER QUADRANT Radiology Routine Pre-op evaluation Class 3 severe obesity with serious comorbidity and body mass index (BMI) of 40.0 to 44.9 in adult, unspecified obesity type (HCC) 1 Occurrences starting 01/19/2023 until 02/18/2024 [facility] Work Phone: Comment on above: 1 Occurrences starti ng 01/19/2023 until 02/18/2024 [facility] Immunizations Immunization Date Immunization Notes Care Provider Patty miramontes 07-07-2022 tetanus toxoid, redu himanshu diphtheria toxoid, and acellular pertussis vaccine, adsorbed Maria R Disla Other [facility] Work Phone: 04-07-2020 influenza, injectabl e, quadrivalent, contains preservative Allie Larson EMBOSSING CALENDER OPERATOR.RESPIRATORY THERAPIST ASSISTANT Work Phone: [facility] Work Phone: 04-07-2020 influenza virus vacc ine, unspecified formulation [facility] 03-14-2019 influenza, injectabl e, quadrivalent, contains preservative Maria R Disla Other [facility] Work Phone: 03-14-2019 influenza, injectabl e, quadrivalent, preservative free [facility] 09-13-2018 meningococcal oligosaccharide (groups A, C, Y and W-135) diphtheria toxoid conjugate vaccine (MCV4O) Allie Larson APRN.RESPIRATORY THERAPIST ASSISTANT Work Phone: [facility] Work Phone: 02-21-2014 influenza, seasonal, injectable Allie Larson EMBOSSING CALENDER OPERATOR.RESPIRATORY THERAPIST ASSISTANT Work Phone: [facility] Work Phone: 07-07-2013 hepatitis A vaccine, pediatric/adolescent dosage, 2 dose schedule Allie Larson APRN.RESPIRATORY THERAPIST ASSISTANT Work Phone: [facility] Work Phone: 07-07-2013 meningococcal polysaccharide (groups A, C, Y and W-135) diphtheria toxoid conjugate vaccine (MCV4P) Allie Larson EMBOSSING CALENDER OPERATOR.[facility] Work Phone: [facility] Work Phone: 07-07-2013 tetanus toxoid, redu himanshu diphtheria toxoid, and acellular pertussis vaccine, adsorbed Allie Larson EMBOSSING CALENDER OPERATOR.RESPIRATORY THERAPIST ASSISTANT Work Phone: [facility] Work Phone: 03-16-2013 Human Papillomavirus 9-valent vaccine Allie Larson APRN.RESPIRATORY THERAPIST ASSISTANT Work Phone: [facility] Work Phone: 03-16-2013 influenza, injectabl e, quadrivalent, preservative free Allie Larson EMBOSSING CALENDER OPERATOR.RESPIRATORY THERAPIST ASSISTANT Work Phone: [facility] Work Phone: 10-08-2011 Human Papillomavirus 9-valent vaccine Allie Larson APRN.RESPIRATORY THERAPIST ASSISTANT Work Phone: [facility] Work Phone: 07-03-2011 Human Papillomavirus 9-valent vaccine Allie Larson APRN.RESPIRATORY THERAPIST ASSISTANT Work Phone: [facility] Work Phone: 03-01-2008 hepatitis A vaccine, pediatric/adolescent dosage, 2 dose schedule Allie Larson APRN.RESPIRATORY THERAPIST ASSISTANT Work Phone: [facility] Work Phone: 03-01-2008 varicella virus vaccine Cammie Larson APRN.RESPIRATORY THERAPIST ASSISTANT Work Phone: [facility] Work Phone: 05-20-2005 influenza, seasonal, injectable Allie Larson APRN.RESPIRATORY THERAPIST ASSISTANT Work Phone: [facility] Work Phone: 04-11-2005 influenza, seasonal, injectable Allie Larson APRN.RESPIRATORY THERAPIST ASSISTANT Work Phone: [facility] Work Phone: 01-16-2005 diphtheria, tetanus toxoids and acellular pertussis vaccine, 5 pertussis antigens Allie Larson APRN.RESPIRATORY THERAPIST ASSISTANT Work Phone: [facility] Work Phone: 01-16-2005 measles, mumps and rubella virus vaccine Allie Larson APRN.RESPIRATORY THERAPIST ASSISTANT Work Phone: [facility] Work Phone: 01-16-2005 poliovirus vaccine, inactivated Allie Larson APRN.RESPIRATORY THERAPIST ASSISTANT Work Phone: [facility] Work Phone: 06-27-2002 diphtheria, tetanus toxoids and acellular pertussis vaccine Allie Larson APRN.RESPIRATORY THERAPIST ASSISTANT Work Phone: [facility] Work Phone: 06-27-2002 haemophilus influenz ae type b vaccine, PRP-T conjugate Allie Larson APRN.RESPIRATORY THERAPIST ASSISTANT Work Phone: [facility] Work Phone: 02-02-2002 measles, mumps and rubella virus vaccine Allie Larson EMBOSSING CALENDER OPERATOR.[facility] Work Phone: [facility] Work Phone: 02-02-2002 varicella virus vaccine Cammie Larson EMBOSSING CALENDER OPERATOR.[facility] Work Phone: [facility] Work Phone: 2001 diphtheria, tetanus toxoids and acellular pertussis vaccine, unspecified formulation Allie Larson EMBOSSING CALENDER OPERATOR.[facility] Work Phone: [facility] Work Phone: 2001 haemophilus influenz ae type b conjugate and Hepatitis B vaccine Allie Larson EMBOSSING CALENDER OPERATOR.[facility] Work Phone: [facility] Work Phone: 2001 poliovirus vaccine, inactivated Allie Larson EMBOSSING CALENDER OPERATOR.[facility] Work Phone: [facility] Work Phone: 2001 diphtheria, tetanus toxoids and acellular pertussis vaccine, unspecified formulation Allie Larson EMBOSSING CALENDER OPERATOR.[facility] Work Phone: [facility] Work Phone: 2001 haemophilus influenz ae type b conjugate and Hepatitis B vaccine Allie Larson EMBOSSING CALENDER OPERATOR.[facility] Work Phone: [facility] Work Phone: 2001 pneumococcal conjuga te vaccine, 7 valent Allie Larson APRN.[facility] Work Phone: [facility] Work Phone: 2001 poliovirus vaccine, inactivated Allie Larson EMBOSSING CALENDER OPERATOR.[facility] Work Phone: [facility] Work Phone: 2001 diphtheria, tetanus toxoids and acellular pertussis vaccine, unspecified formulation Allie Larson EMBOSSING CALENDER OPERATOR.[facility] Work Phone: [facility] Work Phone: 2001 haemophilus influenz ae type b conjugate and Hepatitis B vaccine Allie Larson EMBOSSING CALENDER OPERATOR.RESPIRATORY THERAPIST ASSISTANT Work Phone: [facility] Work Phone: 2001 pneumococcal conjuga te vaccine, 7 valent Allie Larson EMBOSSING CALENDER OPERATOR.RESPIRATORY THERAPIST ASSISTANT Work Phone: [facility] Work Phone: 2001 poliovirus vaccine, inactivated Allie Larson EMBOSSING CALENDER OPERATOR.RESPIRATORY THERAPIST ASSISTANT Work Phone: [facility] Work Phone: Payers Date Payer Category Payer Self-pay [id number] 2022 Medicaid [id number] 2001 Unknown [id number] 2.16.84 [id number] 2001 Unknown [id number] 2.16.84 [id number] 2001 Unknown [id number] 2.16.84 [id number] 2001 Unknown [id number] 2.16.84 [id number] 2001 Unknown [id number] 2.16.84 [id number] 2001 Unknown [id number] 2.16.8 [id number] 2001 Unknown [id number] 2.16.8 [id number] 2001 Unknown [id number] 2.16.8 [id number] 2001 Unknown [id number] 2.16.8 [id number] 2001 Unknown [id number] 2.16.8 [id number] 2001 Unknown [id number] 2.16.8 [id number] 2001 Unknown [id number] 2.16.8 [id number] 2001 Unknown [id number] 2.16.8 [id number] 1958 Medicaid [id number] 1959 Unknown [id number] 2.1 [id number] Medicaid [id number] Medicaid [id number] 2. [id number] Unknown [id number] 2.1 [id number] Unknown [id number] 2.16.8 [id number] Social History Date Type Detail Facility Unknown if ever smoked [facility] [employer] Other Start: 01-19-2023 End: 12-19-2024 Sex Assigned At [facility] [employer] Other Start: 07-04-2022 End: 01-20-2024 Tobacco smoking status [facility] Smoker (finding) [facility] Start: 2001 Sex Assigned At Female [facility] Start: 01-19-2023 End: 12-02-2024 Tobacco smoking status [facility] Never smoked tobacco [facility] Work Phone: Start: 01-19-2023 End: 12-02-2024 Tobacco use and exposure Smokeless tobacco non-user [facility] Work Phone: Start: 01-19-2023 End: 03-03-2023 Alcohol intake Current drinker of alcohol (finding) [facility] Start: 01-19-2023 End: 12-19-2024 History of Social function [facility] National Score (1-10 0), lower number is lower risk 76 [facility] Start: 01-19-2023 Tobacco Comment vaping [facility] Start: 01-19-2023 Alcohol Comment once a month [facility] Start: 01-17-2023 Gender identity Identifies as female gender (finding) [facility] Start: 01-17-2023 Sexual orientation Bisexual (finding) [facility] Start: 03-03-2023 Tobacco Comment vaping- Quit 02/02/23 [facility] Tobacco smoking stat NHIS Tobacco smoking consumption unknown [facility] Start: 2001 Sex assigned at Not on file [facility] Start: 12-02-2024 End: 02-07-2025 Alcoholic beverage intake Ex-drinker (finding) [facility] Start: 12-02-2024 Alcohol Comment caffeine intake: none [facility] Start: 10-02-2024 [facility] Sex Female (finding) [facility] Goals Date Patient Goal Desired Activity /State Personal health goal Clinical Notes 02-26-2021 to 02-07-2025 [facility]RE[facility] - 02/07/2025 9:50 AM Kasandra He LPN - 01/19/2025 8:50 AM Billy Browning DO - 12/19/2024 9:15 AM Stephanie Gonzalez RN - 12/02/2024 11:00 AM EDT Note Date & Type Note Facility 02-07-2025 History of Presen t illness Narrative Reason for Appointment: Patient ID: Saroj Membreno is a 25 y.o. female who presents [...] Vitals: Estimated body mass index is 52.66 kg/m as calculated from the following: Height as of 12/08/22: 5' 3 . Weight as of this encounter: 297 lb 4 oz. BP: 100/70 Patient's last menstrual period was 09/18/2024. ASSESSMENT & PLAN ICD-10-CM 1. Vaginal discharge N89.8 POCT urinalysis dipstick manually resulted SURESWAB(R) ADVANCED VAGINITIS PLUS, TMA CHLAMYDIA TRACHOMATIS (GENITO/STI) Neisseria gonorrhea DNA probe, direct 2. Second trimester ([facility]) Z34.92 3. 15 weeks gestation of ([facility]) Z3A.15 4. Nausea and vomiting in ([facility]) O21.9 magnesium oxide (Mag-Ox) 400 MG [...] of: RAM[facility]RE[facility] documented in this encounter [facility] 01-19-2025 History of Presen t illness Narrative Reason for Appointment: Patient ID: Saroj Membreno is a 25 y.o. female who presents for Routine Visit (Pt present today as a NEW OB TRANSFER patient. Pt transferred from Dr. Browning.) Patient presents today for Return OB appointment. MEDICATIONS Current Outpatient Medications Medication Instructions Vit-Fe Fumarate-FA ( Vitamins) 28-0.8 MG tablet [...] Constitutional: Appearance: Normal appearance. She is well-developed. Cardiovascular: Rate and Rhythm: Normal rate and regular rhythm. Pulmonary: Effort: Pulmonary effort is normal. Breath sounds: Normal breath sounds. Abdominal: General: Bowel sounds are normal. There is no distension. Palpations: Abdomen is soft. Tenderness: There is no abdominal tenderness. There is no guarding or rebound. Musculoskeletal: General: No swelling. Normal range of motion. Right lower leg: No edema. Left lower leg: No edema. Neurological: Mental Status: She is alert and oriented to person, place, and time. Skin: General: Skin is warm and dry. Psychiatric: Mood and Affect: Mood normal. Behavior: Behavior normal. Vitals and nursing note reviewed. Exam conducted with a clamshell engineer present. Vitals: Estimated body mass index is 52.97 kg/m as calculated from the following: Height as of 12/08/22: 5' 3 . Weight as of this encounter: 299 lb. BP: 122/76 Patient's last menstrual period was 09/18/2024. ASSESSMENT & PLAN ICD-10-CM 1. First trimester ([facility] [facility] Z34.91 POCT urinalysis dipstick manually resulted 2. 12 weeks gestation of ([facility] Z3A.12 New OB: Patient presents for transfer of care from another provider today is 1st time obstetrics appointment with provider. Patient is currently 12w3d . Patients history has been reviewed in great detail including any potential risks. Patient stated she currently has no complaints. Expectations throughout regarding labs, ultrasounds, and appointments have been discussed with the patient in detail. It was reiterated that the patient is to drink 6-8 glasses of water a day, eat 6 small meals a day, do not consume raw or undercooked meat, and stay away from [facility]. Patient has been consulted regarding any further do's and don'ts of . Patient voiced understanding and all questions and concerns were answered. Patient given Genetic testing to have obtained along with gender. Patient stated that her mother passed, so her aunt will be attending most appointments as well. Patient aware she is able to have vaginal delivery and that preventative treatment starting at 32 weeks gestation. Orders Placed This Encounter Procedures POCT urinalysis dipstick manually resulted Follow Up: Patient is to return in 4 weeks for routine OB appointment with vaginal cultures as she has already had PAP obtained. Documented by Anna He LPN on behalf of: Rodrigo Guzman DO documented in this encounter [facility] 12-19-2024 History of Presen t illness Narrative Images from the original note [...] supervision of normal first in first trimester ([facility]) Z34.01 2. 13 weeks gestation of ([facility]) Z3A.13 POCT URINALYSIS [address]/NG IGP,rfx Apt HPV ASCU,16/18,45 3. Screen for sexually transmitted diseases Z11.[address]/NG 4. Herpes simplex type 2 infection complicating , first trimester ([facility]) O98.511 B00.9 5. Severe obesity due to excess calories affecting in first trimester ([facility]) O99.211 E66.01 6. Screening for malignant neoplasm of cervix Z12.4 IGP,rfx Apt HPV ASCU,16/18,45 7. Nausea and vomiting during ([facility]) O21.9 She is here for routine [...] in 4 weeks. documented in this encounter [facility] 12-02-2024 History of Presen t illness Narrative Name: Saroj Membreno Date/Time of [...] History: Procedure Laterality Date WISDOM TOOTH EXTRACTION 2020 Family History Family History Problem Relation Name [...] of estimated date of delivery No Thalassemia (Polish, Lao, Mediterranean, or background): MCV less than 80 No Neural tube defect (Meningomyelocele, Spina bifida, or Anencephaly) No Down syndrome No Yusuf-Sachs (Ashkenazi Yazdanism, Cajun, Malay [place]) No Leoncio disease (Ashkenazi Yazdanism) No Familial dysautonomia (Ashkenazi Yazdanism) No Sickle cell disease or trait () No Hemophilia or other blood disorders No Muscular dystrophy No Cystic fibrosis No Mutual's chorea No Other inherited genetic or chromosomal [...] 12/02/2024 12:05 PM documented in this encounter [facility] 11-09-2024 Evaluation note Diagnosis Onset Date Resolution Acute bacterial sinusitis noneactive November 09, 2024 10:32am Shingles acute November 15 10:05am [facility] Work Phone: 1(311) 791-804506-16-2025 History of Present illness Narrative* RAMÍREZ Castle - 11/07/2024 11:00 AM EDT Reason for Appointment: Patient ID: Saroj Membreno [...] nursing note reviewed. Exam conducted with a clamshell engineer present. Vitals: Estimated body mass index is [...] behalf of: RAMÍREZ Castle documented [facility] encounter[facility] [id number] NoteHNO ID: [id number] Author: Netta Dillard, PhD Service: ? Author Type: Psychologist Type: Progress Notes Filed: 04/07/2023 7:48 AM Note Text: [facility] Bariatric Behavioral Services Progress Note April 06, 2023 Patient was a no-show. Netta Dillard, Ph.D. [facility]ologistBarnesville Hospital10-10-2023 History and physical note* Shelly Parsons DO - 03/03/2023 3:00 PM EDT HISTORY AND PHYSICAL Saroj Membreno, 23 year old female Current history and physical on file: No Is a new History and Physical required for today's visit? Yes Indication for procedure: Other Pre-op PROCEDURE(S) SCHEDULED FOR: EGD (Esophagogastroduodenoscopy) with or without biopsies, removal of polyps or lesions, dilation (any means), treatment of bleeding ( any means), [...] MAC Additional Comments: None Shelly Parsons DO [facility] Work Phone: [phone] 524-814710-10-2023 History and physical note* Shelly Parsons DO - 03/03/2023 3:00 PM EDT HISTORY AND PHYSICAL Saroj Membreno, 23 year old female Current history and physical on file: No Is a new History and Physical required for today's visit? Yes Indication for procedure: Other Pre-op PROCEDURE(S) SCHEDULED FOR: EGD (Esophagogastroduodenoscopy) with or without biopsies, removal of polyps or lesions, dilation (any means), treatment of bleeding ( any means), [...] None Shelly Parsons DO documented in this encounter[facility]-10-20[facility] Nurse Note* Meghann Kwan RN - 03/03/2023 10:31 AM EDT POST OP LEARNING RESPONSE INSTRUCTION PROVIDED TO: Patient METHOD OF INSTRUCTION: Written instruction - handouts Verbal instruction PATIENT / FAMILY RESPONSE: Verbalizes understanding of: POST-PROCEDURE INSTRUCTIONS-Correct actionsto take to reduce post procedure complications FOLLOW-UP PLAN: Patient instructed to call with any further issues SUPPLEMENTAL MATERIAL: Post sedation instructions given REFERRAL (RECOMMENDATION): None Electronically Signed By: Meghann Escalante RN In Department: AMBULATORY SURGERY [facility]10-10-2023 Nurse Note* Meghann Kwan RN - 03/03/2023 10:31 AM EDT POST OP LEARNING RESPONSE INSTRUCTION PROVIDED TO: Patient METHOD OF INSTRUCTION: Written instruction - handouts Verbal instruction PATIENT / FAMILY RESPONSE: Verbalizes understanding of: POST-PROCEDURE INSTRUCTIONS-Correct actionsto take to reduce post procedure complications FOLLOW-UP PLAN: Patient instructed to call with any further issues SUPPLEMENTAL MATERIAL: Post sedation instructions given REFERRAL (RECOMMENDATION): None Electronically Signed By: Meghann Escalante RN In Department: AMBULATORY SURGERY * Bia Price RN - 03/03/2023 9:54 AM EDT PRE OP LEARNING ASSESSMENT PROCEDURE/SURGERY: GI PROCEDURES: EGD READINESS TO LEARN COGNITIVE ABILITY: Alert and oriented MOTIVATION TO LEARN: Interested FAMILY SUPPORT: High - Very involved in pt care PATIENT LEARNS BEST BY: Written Instruction - Hand-outs Verbal Instruction FACTORS AFFECTING LEARNING: None PHYSICAL LIMITATIONS AFFECTING LEARNING: None Electronically Signed By: Bia Price RN In Department: AMBULATORY SURGERY documented in this encounterSelect [facility]-20[facility] Nurse Note* Bia Price RN - 03/03/2023 9:54 AM EDT PRE OP LEARNING ASSESSMENT PROCEDURE/SURGERY: GI PROCEDURES: EGD READINESS TO LEARN COGNITIVE ABILITY: Alert and oriented MOTIVATION TO LEARN: Interested FAMILY SUPPORT: High - Very involved in pt care PATIENT LEARNS BEST BY: Written Instruction - Hand-outs Verbal Instruction FACTORS AFFECTING LEARNING: None PHYSICAL LIMITATIONS AFFECTING LEARNING: None Electronically Signed By: Bia Price RN In Department: AMBULATORY SURGERY [facility]10-04-2023 Miscellaneous Notes* Telephone Encounter - Mary Alice Clark Ma - 02/25/2023 4:26 PM EDT Lm to confirm procedure for 03-03-23 documented in this encounterSelect [facility]-25-2023 NoteHNO ID: [id number] Author: Eugenia Chaudhary Service: ? Author Type: ? Type: Progress Notes Filed: 02/16/2023 1:25 PM Note Text: Sleep Study Check-In Documentation Date: February 16, 2023 Name: Saroj Membreno Comments: HST was returned in working order with all sleep questionnaires Eugenia ChaudharyBarnesville Hospital09-25-2023 History of Present illness Narrative* Eugenia Chaudhary - 02/16/2023 1:24 PM EDT Sleep Study Check-In Documentation Date: February 16, 2023 Name: Saroj Membreno Comments: HST was returned in working order with all sleep questionnaires Eugenia Chaudhary * Kelvin Gabriel III, PhD - 02/11/2023 8:52 AM EDT February 11, 2023 Standing PSG Orders signed in the last 90 days None Future PSG Orders signed in the last 90 days Ordered Auth. provider HOME SLEEP APNEA TEST (HSAT) [[id number]] 01/19/23 Allie Larson APRN.RESPIRATORY THERAPIST ASSISTANT Assoc. diagnoses: Pre-op evaluation [Z01.818], Class 3 [...] the newest values recorded on each date aredisplayed. Sleep Studies HOME SLEEP APNEA TEST (HSAT) [...] and Related Procedures, or if the sleep studyis indicated for other reasons. Indications for study: GUS suspected with comorbid medical or sleep disorders: Morbid obesity (BMI>40 kg/m2) Sleep study to be performed: Home Sleep Apnea Test (HSAT) Special instructions: None-follow laboratory protocol [facility] Staff Note: I have read the above protocol, edited as needed, and agree to the plan. Kelvin Gabriel III, PhD 12:15 PM, 02/11/2023 * Temo Torres - 02/10/2023 9:56 PM EDT Nomad# [id number] +GPS , Date shipped out: 02/11/23 SENT FEDEX DELIVERY - FEDEX RETURN Tracking mailout: [id number] [id number] Tracking return: [phone] [id number] * Katharina Blood - 02/01/2023 8:23 AM EDT February 01, 2023 An order has been received for Home Sleep Apnea Test (HSAT) from Allie Sales APRN.RESPIRATORY THERAPIST ASSISTANTharley. [facility] Staff. Visit prep complete. Comments :No The sleep study is scheduled for 02/21. Insurance: Payor: [employer] MEDICAID / Plan: [facility]ID [facility] / Product Type: Medicaid / Payer/Plan Subscr Sex Relation Sub. Ins. ID Effective Group Num 1. ANTHEM MEDICA* SAROJ MEMBRENO 01 Female Self [id number] [birth year] [address] Katharina Blood documented in this encounterSelect Medical [facility]ty [facility]09-21-2023 NoteHNO ID: [id number] Author: Netta Dillard, PhD Service: ? Author Type: Psychologist Type: Progress Notes Filed: 02/18/2023 12:31 PM Note Text: [facility] Bariatric Behavioral Services Progress Note February 16, 2023 Patient cancelled today's appt. Netta Dillard, Ph.D. PsychologistBarnesville Hospital09-20-2023 NoteHNO ID: [id number] Author: Kelvin Gabriel III, PhD Service: ? Author Type: Physician Type: Progress Notes Filed: 02/16/2023 1:25 PM Note Text: February 11, 2023 Standing PSG Orders signed in the last 90 days None Future PSG Orders signed in the last 90 days Ordered Auth. provider HOME SLEEP APNEA TEST (HSAT) [[id number]] 01/19/23 Allie Larson APRN.RESPIRATORY THERAPIST ASSISTANT Assoc. diagnoses: Pre-op evaluation [Z01.818], Class 3 [...] Test (HSAT) Special instructions: None-follow laboratory protocol Nancytamar [facility] Staff Note: I have read the above protocol, edited as needed, and agree to the plan. Kelvin Gabriel III, PhD 12:15 PM, 02/11/2023[facility]09-20-2023 Nurse Note* Roya Lawler RN - 02/11/2023 8:33 AM EDT Ekg completed. Pt with no voiced complaints. Provider cc'd of completion. documented in this encounterSelect Medical Specialty [facility]09-19-2023 NoteHNO ID: [id number] Author: Temo Torres Service: ? Author Type: ? Type: Progress Notes Filed: 02/16/2023 1:25 PM Note Text: Nomad# [id number] +GPS , Date shipped out: 02/11/23 SENT FEDEX DELIVERY - FEDEX RETURN Tracking mailout: [id number] Tracking return: [phone] [id number]09-19-2023 Instructions * Patient Instructions* Sasha Xie RD - 02/10/2023 1:39 PM EDT NUTRITION CARE PLAN Nutrition Intervention 02/04/2023: Modify type and amount of food consumed at meals and snacks Before your next visit, read the Nutritional Guidelines section of Your Guide to Surgery. https://my.[facility].org/departments/bariatric/patient-education/videos-gu ides#guides-tab 2. Drink 64 oz of fluids each [...] 200 calories or less and at least 15- 20 grams protein. Slim Fast Advanced Nutrition (20 grams protein) York Breakfast Essentials Light Start mixed with 1%/skim milk Atkins Protein Shake (15 gm protein version) Boost Glucose Control (16 grams protein) OWYN (20 gm protein and 180 calories version) 5. You need 79 grams of protein every day. Have a protein food with all meals and snacks. Get your protein from: lean meat, fish, eggs, low-fat dairy (cottage/ricotta cheese, mauritanian/light yogurt, cheese), nuts, nut butters, beans/legumes. 6. [...] - Check List Preparing for Bariatric Surgery (pre- op shakes and post-op vitamins), try some of the protein shakes indicated to prepare for surgery and investigate the indicated websites to familiarize yourself with post-op vitamin selections Protein needs: 79 grams per day Pre-op goal weight: 243 pounds Nutrition Monitoring & Evaluation: weight loss of 1-2 lbs/week Need for Follow up: 2-4 weeks documented in this encounterSelect Medical Specialty [facility]09-19-2023 Miscellaneous Notes* Telephone Encounter - Allie Larson APRN.CNP - 02/10/2023 11:32 AM EDT Noted, thank you * [facility]10/[facility]23 10:11 AM EDT Smoking Cessation Navigation Outcome of contact: Spoke with Intervention Chosen By Patient: Other Comments: Patient quit last week. [employer] Internship/Smoking Cessation Navigator: [facility] documented in this encounterSelect Medical Specialty [facility]09-13-2023 NoteHNO ID: [id number] Author: Sasha Xie RD Service: ? Author Type: Registered Dietitian Type: Progress Notes Filed: 02/10/2023 1:40 PM Note Text: Nutrition Therapy Initial Assessment I have communicated my name and active licensure. The patient?s identity and physical location were verified at the time of this visit. 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 https://my.[facility].org/departments/bariatric/patient-education/vide os-guides#guides-tab 2. Drink 64 oz of fluids [...] Slim Fast Advanced Nutrition (20 grams protein) York Breakfast Essentials Light Start mixed with 1%/skim milk Atkins Protein Shake (15 gm protein version) Boost Glucose Control (16 grams protein) OWYN (20 gm protein and 180 calories version) 5. You need 79 grams of protein every day. Have a protein food with all meals and snacks. Get your protein from: lean meat, fish, eggs, low-fat dairy (cottage/ricotta cheese, mauritanian/light yogurt, cheese), nuts, nut butters, beans/legumes. 6. [...] guidelines for weight loss surgery and has [employer] Insurance therefore is required to complete 0 months of Nutrition Intervention for clearance for surgery. Today is visit #1 ([place] 02/04/2023). Patient meets the National Institutes of Health guidelines for weight loss surgery however, needs to demonstrate consistent effort in making dietary changes before being cleared for surgery. (more content not included)...[facility] [id number] History of Present illness Narrative* Sasha Xie, RD - 02/04/2023 10:26 AM EDT Nutrition Therapy Initial Assessment I have communicated my name and active licensure. The patient s identity and physical location wereverified at the time of this visit. Either the patient or their legal automotive leasing sales representative has been informed of the risks and benefits of -- and alternatives to -- treatment through a remote evaluation andconsents to proceed with the evaluation remotely. Nutrition Diagnosis: Overweight/obesity, related to, food/nutrition - related knowledge deficit, asevidenced by BMI above normative standard for age and gender. RECOMMENDED MALNUTRITION DIAGNOSIS: NO MALNUTRITION IDENTIFIED NUTRITION CARE PLAN Nutrition Intervention 02/04/2023: Modify type and amount of food consumed at meals and snacks Before your next visit, read the Nutritional Guidelines section of Your Guide to Surgery. https://my.[facility].org/departments/bariatric/patient-education/videos-gu ides#guides-tab 2. Drink 64 oz of fluids each [...] 200 calories or less and at least 15- 20 grams protein. Slim Fast Advanced Nutrition (20 grams protein) York Breakfast Essentials Light Start mixed with 1%/skim milk Atkins Protein Shake (15 gm protein version) Boost Glucose Control (16 grams protein) OWYN (20 gm protein and 180 calories version) 5. You need 79 grams of protein every day. Have a protein food with all meals and snacks. Get your protein from: lean meat, fish, eggs, low-fat dairy (cottage/ricotta cheese, mauritanian/light yogurt, cheese), nuts, nut butters, beans/legumes. 6. [...] - Check List Preparing for Bariatric Surgery (pre- op shakes and post-op vitamins), try some of [...] taken today, indicating Class 3 obesity, BMI 42.91kg/m2. Significant co-morbidities include ADHD, asthma, anxiety. Labs: none. Initial weight 253 lbs/64 inches on 01/19/23. Patient has basic understanding of weight loss surgery and the nutritional implications following surgery. Patient has high weight loss expectations, anticipating weight loss of > 100 lbs (40% TBW), with goal weight 150 lbs or less following surgery. Previous diet attempts include RD visits as achild, self-directed diets (calorie counting), rx meds (victoza). She reports weight gain after stopping each attempt. Weight history significant for childhood overweight, yoyo diets, loss/gain. Greatest barrier to weight loss in the past has been poor diet and limited exercise. Diet recall indicates inconsistent meal pattern with weekly skipped meals (breaskfast), fried foods3-4x week, sweets infrequently. Her general pattern is high in kcal from frequent intake of restaurant foods. Protein intake inconsistently meets needs (79.g/day). Fluids meet recommendations of 64 oz per day,with water as her primary beverage. Physical activity includes active ADL, at work no additional, below recommended 150-250 minutes per week of aerobic activity and muscle strengthening activity at least 2 non-consecutive days per week. Patient meets the National Institutes of Health guidelines for weight loss surgery and has [employer] Insurance therefore is required to complete 0 months of Nutrition Intervention for clearance for surgery. Today is visit #1 ([place] 02/04/2023). Patient meets the National Institutes of [...] weekends - breaklfast burrito egg, sausage, pepper -cooks at home or [employer]onal[employer] Snack - skips Lunch - 1-3 pm - chick file delux chick sand, w/ mac and cheese and powerade OR Diana's burger, nuggets, small barr and drink Snack - none Dinner - 8-9 pm - home cooked - 2 burrito large tortilla, meat ,cheese, kaden, sour cream, taco sauce OR chinese chicken w/ mexical rice and corn/green beans Snack - 3x week - pretzels and nutella Beverages - water 10-12 c/day, 2-3x week lemonade/vitamin water, chocolate milk Alcohol - none/occ Vitamins/Supplements - none Restaurants, pick-up, take-out: 3-4x week - Chick File, [place], Faroese Activity: Activities of Daily Living: Active 50% of the day. 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 Author Type: ? Type: Progress Notes Filed: 02/16/2023 1:25 PM Note Text: February 01, 2023 An order has been received for Home Sleep Apnea Test (HSAT) from Allie Sales APRN.harley NUGYỄN. [facility] Staff. Visit prep complete. Comments :No The sleep study is scheduled for 02/21. Insurance: Payor: ANTHEM MEDICAID / Plan: ANTHEM BS MED[place] / Product Type: Medicaid / Payer/Plan Subscr Sex Relation Sub. Ins. ID Effective Group Num 1. ANTHEM MEDICA* SAROJ MEMBRENO 01 Female Self [id number] [birth year] [address] [facility]09-08-2023 NoteHNO ID: [id number] Author: Cathie Ford RT(R) Service: Radiology Author Type: Bun Panner Type: Progress Notes Filed: 01/30/2023 10:50 AM [...] BY: RT Enrrique(R) January 30, 2023 10:47 AMGarfield Memorial [id number] NoteHNO ID: [id number] Author: Norberto Malone MD Service: ? Author [...] goal weight prior to liquid fast: Per reconciliation machine operator Surgically Cleared with completion of the below: [...] Risks of nicotine befor (more content not included)...[facility]09-08-20[facility] History of Present illness Narrative* Cahtie Ford RT(R) - 01/30/2023 10:40 AM EDT Radiology Service Progress Note PATIENT NAME: Saroj Membreno DATE OF SERVICE: January 30, 2023 TIME: 10:47 AM PATIENT IDENTITY VERIFICATION COMPLETED USING TWO (2) IDENTIFIERS: Name and Date of confirmedby patient verbally and Name and Date of [...] 30, 2023 10:47 AM documented in this encounterSelect [facility]ty [facility]08-28-2023 NoteHNO ID: [id number] Author: Allie Larson APRN.RESPIRATORY THERAPIST ASSISTANT Service: ? Author Type: Nurse Practitioner Type: [...] Characterization of diet: Unstructured and skip meals. Household Personal Assistant of impaired eating habits:denies Eating Disorder no [...] Anxiety and depression Asthma No history of LA, COPD, +asthma, peptic ulcer disease, +GERD, dyslipidemia, [...] infection, wheezing Cardiovascular: No history of chest pain,palpitation,orthopnea,cynosis,pedel edema Gastrointestinal: No blood in stool, pain with BM, tarry stool, persistent diarrhea or constipation Genitourinary: No burning with urination, blood in urine or incontinence. No change in vaginal discharge, burning, dryness or itching. Hematology/Lymphology Negative for prolonged bleeding, bruising easily or swollen nodes Musculoskeletal: negative Psychiatric: negative +anxiety, stable on current medications Endocrine: No history of thyroid disorder,diabetes,cold intolerance,heat,intolerance,polydypsia Neuro: No history of headaches, syncope, paralysis, [...] HEENT:: Supple, no adenopath (more content not included)...[facility]08-28-20[facility] Instructions* Patient Instructions* Allie Larson APRN.RESPIRATORY THERAPIST ASSISTANT - 01/19/2023 9:16 AM EDT Darron Membreno , Thank you for completing your visit today and we welcome you to the surgical program. We are sure that you will still have some additional questions and encourage you to reach out to your care provider via Single Digits OR your Patient Navigator. Patient Navigators are assigned alphabetically by patient last name. The contact information for each Navigator is listed below. Last names A-E= Eugenia Last names F-L = Ricardo Last names M-R= Catie Last names S-Z= CathieKely Additionally, you may find many of the answers to your questions in our Guide To Surgery book. Thisbook includes step by step instructions for completing [...] free to ask for a hard copy. [email or web address].[email or web address]/-/scassets/files/org/[email or web address]/guides/bmiguideboo [email or web address]?la=en Once you complete all of the requirements (testing, consultations, diet, etc) from each provider, please call [phone] and select option #5 to initiate insurance approval. Also, if you have any questions along the way, we encourage you to join our weekly Navigation webinar every Thursday from 12:00 pm - 1:00 pm. This webinar will give you an opportunity to chat with your patient navigator and learn about your specific program requirements. The link for this webinar isbelow: [email or web address] Please note scheduling information It is important to keep track of your scheduled appointments to ensure successful completion of oursurgical program. Any missed appointments can further delay your pre-surgical work-up. [facility] does offer an opt-in option for getting text message appointment reminders. Please follow the link below if you would like to opt into this service. [email or web address] As part of your surgical work up, SOME or ALL of the following tests may have been ordered. It willbe your responsibility to schedule and complete these tests in order to proceed with your bariatricsurgery. Please review the following instructions on how to get your testing scheduled. -EKG, Chest X-ray, Abdominal Ultrasound- An appointment is needed for each of these tests. You may call your local [facility] to get an appointment. - Lab work- No appointment is needed for this, you may complete at any [facility] Laboratory.These are usually fasting labs, please be sure to fast (only water permitted) for 10-12 hours priorto the test. -Sleep Study- Please call [phone] or [phone] to get this appointment set up. -Sleep Medicine Consult- (Only needed if sleep study confirms sleep apnea) Please call [phone] to schedule an appointment. URINE TESTING AFTER [...] at least 1 month, go to any [facility] lab and submityour first nicotine screen. ?The order for your [...] Any testing that is completed outside of [facility] will need faxed to [phone]. We look forward to working with you on this journey, Allie Larson APRN.CNP documented in this encounter[facility] History of Present illness Narrative* Allie Larson APRN.CNP - 01/19/2023 9:00 AM EDT BMI Obesity Medicine Initial Bariatric Surgery Consult [...] Characterization of diet: Unstructured and skip meals. Household Personal Assistant of impaired eating habits:denies Eating Disorder no [...] Anxiety and depression Asthma No history of LA, COPD, +asthma, peptic ulcer disease, +GERD, dyslipidemia, [...] infection, wheezing Cardiovascular: No history of chest pain,palpitation,orthopnea,cynosis,pedel edema Gastrointestinal: No blood in stool, pain with BM, tarry stool, persistent diarrhea or constipation Genitourinary: No burning with urination, blood in urine or incontinence. No change in vaginal discharge, burning, dryness or itching. Hematology/Lymphology Negative for prolonged bleeding, bruising easily or swollen nodes Musculoskeletal: negative Psychiatric: negative +anxiety, stable on current medications Endocrine: No history of thyroid disorder,diabetes,cold intolerance,heat,intolerance,polydypsia Neuro: No history of headaches, syncope, paralysis, [...] No results found for any previous visit. Juventino Membreno is a 23 year old female [...] variations of B vitamins or Vitamin D willbe corrected pre-operatively. - : Recommend that she should not become for 18-24 months after surgery due to increased risks of micronutrient deficiency. I counseled her on the perioperative use of estrogen therapy, instructing her not to take oral estrogen (eg OCPs) one month before and one month after surgery due to increased VTE risk. We reviewed alternate forms of contraception and encouraged the patientto speak with her physician/provider to formulate a [...] at least 1 month, go to any [facility] lab and submityour first nicotine screen. ?The order for your [...] and provide medicine clearance via letter in [employer]. I spent a total of 50 minutes on the date of the service which included preparing to see the patient, [id number] patient care, completing clinical documentation, obtaining and/or reviewing separately obtained history, counseling and educating the patient/family/caregiver, and ordering medications, tests, or procedures. Allie Larson, MSN, EMBOSSING CALENDER OPERATOR, RETURNED MATERIALS INSPECTOR-C [facility] [address], [address] [place] [address] documented in this encounter[facility] Evaluation note* Encounter Date Diagnosis Assessment Notes Treatment Notes Treatment Clinical Notes Jun, Laceration of right middle finger [...] concerns Jun, Urinary frequency (ICD-10 - R35.0) [employer] Other 01-24-2023 Evaluation note* Encounter Date Diagnosis Assessment Notes Treatment Notes Treatment Clinical Notes May, Generalized anxiety disorder (ICD-10 - F41.1) [facility] Other 10-31-2022 Evaluation note* Encounter Date Diagnosis Assessment Notes Treatment Notes Treatment Clinical Notes Feb, Muscle pain (ICD-10 - M79.10) Feb, PILO (generalized anxiety disorder) (ICD-10 - F41.1) [facility] Other 09-05-2022 Evaluation note* Encounter Date Diagnosis Assessment Notes Treatment Notes Treatment Clinical Notes Jan, Herpes zoster without complication (ICD-10 - B02.9) Shingles home care material was printed Drink plenty fluids, get plenty of rest. Take the Valtrex as prescribed until gone. Follow-up with your family physician if no improvement in 2 to 3 days. [employer] Other 07-05-2022 Evaluation note* Encounter Date Diagnosis [...] to be seen. Also always know the [facility] [employer] [facility] Emergency Number is 24 hours a day available, even on holidays there is someone you can reach out to. Also we will check other labs yearly to screen for other health issues. Please remember we are a team and your opinion is very important in all of your healthcare decisions Nov, Insomnia, unspecified type (ICD-10 - G47.00) Increased dose as discussed. [employer] Other 06-20-2022 Evaluation note* Encounter Date Diagnosis Assessment Notes Treatment Notes Treatment Clinical Notes Oct, Generalized anxiety disorder (ICD-10 - F41.1) Increased medication as discussed. Oct, Herpes zoster without complication (ICD-10 - B02.9) Take medicatio as directed. Tylenol or motrin for pain [employer] Other 05-23-2022 Evaluation note* Encounter Date Diagnosis [...] to be seen. Also always know the [facility] [employer] [facility] Emergency Number is 24 hours a [...] medication can help with sleep and anxiety [employer] Other 03-27-2022 Evaluation note* Encounter Date Diagnosis Assessment Notes Treatment Notes Treatment Clinical Notes Jul, Muscle pain (ICD-10 - M79.10) [facility] Other 01-28-2022 Evaluation note* Encounter Date Diagnosis [...] Patient care instructions given in writting by [facility] Care At Home document. [employer] Other 2022 Evaluation note* Encounter Date Diagnosis Assessment Notes Treatment Notes Treatment Clinical Notes May, PILO (generalized anxiety disorder) (ICD-10 - F41.1) May, Generalized anxiety disorder (ICD-10 - F41.1) May, Muscle pain (ICD-10 - M79.10) [facility] Other 11-06-2021 Evaluation note* Encounter Date Diagnosis [...] Patient care instructions given in writting by [facility] Care At Home document. [employer] [employer] Other 10-14-2021 Evaluation note* Encounter Date Diagnosis Assessment Notes Treatment Notes Treatment Clinical Notes Feb, Generalized anxiety disorder (ICD-10 - F41.1) resent script Feb, Puncture wound without foreign body of lip, initial encounter (ICD-10 - S01.531A) take medication as directed. Recommend taking out piercing and possibly using different type made of different metal [employer] Other 10-05-2021 Evaluation note* Encounter Date Diagnosis [...] to be seen. Also always know the [facility] Emergency Number is 24 hours a day available, even on holidays there is someone you can reach out to. Also we will check other labs yearly to screen for other health issues. Please remember we are a team and your opinion is very important in all of your healthcare decisions [employer] Other Evaluation noteNort [employer] Other Evaluation noteNo assessment information available [facility] Work Phone: Evalutsxap note* Diagnosis Pre-op evaluation- Primary Preoperative examination, unspecified Class 3 severe obesity with serious comorbidity and body mass index (BMI) of 40.0 to 44.9 in adult, unspecified obesity type (HCC) Vapes nicotine containing substance Marijuana smoker Cannabis abuse, unspecified documented [facility] Diagnosis Body mass index (BMI) 40.0-44.9, adult (HCC)- Primary Dietary counseling and surveillance Dietary surveillance and counseling documented in this encounter [facility] note* Diagnosis Pre-op evaluation Preoperative examination, unspecified Class 3 severe obesity with serious comorbidity and body mass index (BMI) of 40.0 to 44.9 in adult, unspecified obesity type (HCC) documented in this encounter [facility] note* Diagnosis Pre-op evaluation Preoperative examination, unspecified Class 3 severe obesity with serious comorbidity and body mass index (BMI) of 40.0 to 44.9 in adult, unspecified obesity type (HCC) documented in this encounter [facility] note* Diagnosis Pre-op evaluation Preoperative examination, unspecified Class 3 severe obesity with serious comorbidity and body mass index (BMI) of 40.0 to 44.9 in adult, unspecified obesity type (HCC) documented in this encounter [facility] note* Diagnosis Onset Date Resolution Status Right otitis media noneactiv e [facility] Work Phone: evaluation note* Diagnosis Onset Date Resolution Status Right otitis media noneactiv e Right ankle sprain acute [facility] Work Phone: Evaluation note* Diagnosis Onset Date Resolution Status Right ankle sprain acute [facility] Work Phone: evaluation note* Diagnosis Onset Date Resolution Status Right ankle sprain acute Acute pharyngitis [facility] Work Phone: evaluation note* Diagnosis Onset Date Resolution Status Right ankle sprain acute Acute pharyngitis acute Vaginal discharge [facility] Work Phone: Evaluation note* Diagnosis Class 3 severe obesity with serious comorbidity and body mass index (BMI) of 40.0 to 44.9 in adult, unspecified obesity type (HCC) documented in this encounter [facility] note* Diagnosis Well woman exam with routine gynecological exam Routine gynecological examination [facility] Diagnosis Encounter for supervision of normal first in first trimester ([facility]) Encounter for drug screening Encounter for screening for chromosomal anomalies ([facility]) Screening for genetic disease carrier status [facility] Diagnosis Encounter for supervision of normal first in first trimester (HHS-HCC)- Primary 13 weeks gestation of (HHS-HCC) Screen for sexually transmitted diseases Screening examination for venereal disease Herpes simplex type 2 infection complicating , first trimester (HHS-HCC) Severe obesity due to excess calories affecting in first trimester (HCC) Screening for malignant neoplasm of cervix Screening for malignant neoplasm of the cervix Nausea and vomiting during (HHS-HCC) [facility] Diagnosis First trimester ([facility]HS-HCC) state, incidental 12 weeks gestation of (HHS-HCC) [facility]* Diagnosis Vaginal discharge Leukorrhea, not specified as infective Second trimester (HHS-HCC) state, incidental 15 weeks gestation of (HHS-HCC) Nausea and vomiting in ([facility]) Unspecified vomiting of , unspecified as to episode of care documented [facility] Narrative - Reported* Type Description Date Medical History ADHD Medical History syncope Medical History anxiety Medical History lupus Medical History back pain Medical History chronic depression Medical History PTSD Surgical History wisdom teeth Hospitalization History No Hospitalization histo ry information [facility] [employer] Other History general Narrative - Reported* Type Description Date Medical History ADHD Medical History syncope Medical History anxiety Medical History lupus Medical History back pain Medical History chronic depression Medical History PTSD Surgical History wisdom teeth Hospitalization History No know Hospitalization history [employer] Other History general [facility] - [facility] Other Reason for referral (narrative)* Diagnostic Procedure Only (Routine) - Pending Review Specialty Diagnoses / Procedures Referred By Simba simmons Referred To Contact [facility] [place] Diagnoses Pre-op evaluation Class 3 severe obesity with serious comorbidity and body mass index (BMI) of 40.0 to 44.9 in adult, unspecified obesity type ([facility]) Procedures HOME SLEEP APNEA TEST (HSAT) SLEEP STD AIRFLOW HRT RATE&O2 SAT EFFORT Allie Mcgovern, EMBOSSING CALENDER OPERATOR.RESPIRATORY THERAPIST ASSISTANT [address] [place] [address] [facility] [address] [place] [address] Referral ID Status Reason Start Date Expiration Date Visits Requested Visits Authorized [id number] Pending Review Auto-Generat ed Referral 01/19/2023 01/19/2024 [...] REAL TIME W/IMAGE LIMITED Allie Larson APRN.CNP [address] [id number] [facility] [place] [address] Referral ID Status Reason Start Date Expiration Date Visits Requested Visits Authorized [id number] Pending Review Auto-Generat ed Referral 01/19/2023 02/18/2024 [...] ECG W/LEAST 12 LDS W/I&R Allie Larson APRN.RESPIRATORY THERAPIST ASSISTANT [address] [place] [address] [facility] [address] [place], [place] [id number] Referral ID Status Reason Start Date Expiration Date Visits Requested Visits Authorized [id number] Pending Review Auto-Generat ed Referral 01/19/2023 01/19/2024 1 1 [facility] for referral (narrative)* Diagnostic Procedure Only (Routine) - Closed Specialty Diagnoses / Procedures Referred By Contac t Referred To Contact [facility] Diagnoses Pre-op evaluation Class 3 severe obesity with serious comorbidity and body mass index (BMI) of 40.0 to 44.9 in adult, unspecified obesity type (HCC) Procedures US ABD RIGHT UPPER QUADRANT US ABDOMINAL REAL TIME W/IMAGE LIMITED Allie Larson APRN.RESPIRATORY THERAPIST ASSISTANT [address] [place] [address] [place] [address] Referral ID Status Reason Start Date Expiration Date V isits Requested Visits Authorized [id number] Closed Auto-Generate d Referral 01/19/2023 02/18/2024 1 1 [facility] for referral (narrative)* Outpatient Procedure (Routine) - Closed Specialty Diagnoses / Procedures Referred By Contac t Referred To Contact [facility] Diagnoses Class 3 severe obesity with serious comorbidity and body mass index (BMI) of 40.0 to 44.9 in adult, unspecified obesity type (HCC) Procedures EGD DIAGNOSTIC ESOPHAGOGASTRODUODENOSC OPY [place]ANS[place] [address] [place] [id number] [facility] [address] [place] [id number] Referral ID Status Reason Start Date Expiration Date V isits Requested Visits Authorized [id number] Closed Auto-Generate d Referral 01/30/2023 01/30/2024 1 1 [facility] for referral (narrative)No reason for referral information [facility] Work Phone: [facility] Narrative* Diagnostic Procedure Only (Routine) - Closed Specialty Diagnoses / Procedures Referred By Contac t Referred To Contact [facility] IMAGING Diagnoses Pre-op evaluation Class 3 severe obesity with serious comorbidity and body mass index (BMI) of 40.0 to 44.9 in adult, unspecified obesity type (HCC) Procedures US ABD RIGHT UPPER QUADRANT US ABDOMINAL REAL TIME W/IMAGE LIMITED Allie Larson APRN.RESPIRATORY THERAPIST ASSISTANT [address] [place] [address] [facility] Referral ID Status Reason Start Date Expiration Date V isits Requested Visits Authorized [id number] Closed Auto-Generate d Referral 01/19/2023 02/18/2024 1 1 [facility]* Outpatient Procedure (Routine) - Closed Specialty Diagnoses / Procedures Referred By Simba simmons Referred To Contact [facility] Diagnoses Class 3 severe obesity with serious comorbidity and body mass index (BMI) of 40.0 to 44.9 in adult, unspecified obesity type (HCC) Procedures EGD DIAGNOSTIC ESOPHAGOGASTRODUODENOSC OPY [place] [address] [place] [address] [facility] [address] [place] [address] Referral ID Status Reason Start Date Expiration Date V isits Requested Visits Authorized [id number] Closed Auto-Generate d Referral 01/30/2023 01/30/2024 1 1 [facility] Chief Complaint and Reason for Visit Chief [...] Right ankle sprain Acute pharyngitis Vaginal discharge Chief Complaint Admit Date nasal congestion, ear pain not improved November 09, 2024 10:32am rash November 15, 2024 10:0 5am Elevated BP, 15 wk IUP February 06, 025 10:33pm Reason for Visit Admit Date Acute bacterial sinusitis November 09 10:32am Shingles November 15, 2024 10:0 5am Advance Directives Advance Directive Response Recorded Date/ [...] ECG W/LEAST 12 LDS W/I&R Allie Larson, [place].RESPIRATORY THERAPIST ASSISTANT [address] [place] [address] [facility] [address] [place] [address] Referral ID Status Reason Start Date Expiration Date V isits Requested Visits Authorized [id number] Closed Auto-Generate d Referral 01/19/2023 01/19/2024 1 1 Reason Comments Radio Gen RMP Reason Comments Gynecologic Exam Reason Comments Initial Visit Nurse Visit Reason Comments Routine Visit Pt presents for 1 3w1d pnc. -glu/-pro. Feeling nauseous daily with vomiting daily. Reason Comments Routine Visit Pt present today as a NEW OB TRANSFER patient. Pt transferred from Dr. Browning. Reason Comments Routine Visit Care Teams (unrecognized sec tion and content) [...] Dates NON STAFF Primary Care Provider Active EDDIE WorthyBC Emergency Provider Active Mining Plant Operator Relationship Specialty Start Date End Date NaifThiagoMaria RGOPI [address] [place] [address] Referring Family Medicine 01/07/23 Mining Plant Operator Relationship Specialty Start Date End Date NaifMaria RGOPI [address] [place] [address] Referring Family Medicine 01/07/23 Mining Plant Operator Relationship Specialty Start Date End Date NaifThiagoMaria RGOPI diaz [address] [place] [address] Referring Family Medicine 01/07/23 Mining Plant Operator Relationship Specialty Start Date End Date Maria R Disla CNP [address] [place] [address] Referring Family Medicine 01/07/23 Mining Plant Operator Relationship Specialty Start Date End Date Maria R Disla CNP [address] [place] [address] Referring Family Medicine 01/07/23 Mining Plant Operator Relationship Specialty Start Date End Date Maria R Disla CNP [address] [place] [address] Referring Family Medicine 01/07/23 Mining Plant Operator Relationship Specialty Start Date End Date Maria R Disla CNP [address] [place] [address] Referring Family Medicine 01/07/23 Team Status: Inactive [...] February 02, 2024 End: February 02, 2024 Mining Plant Operator Relationship Specialty Start Date End Date Kromer, Karly PCP - [facility] HUMAN PERFORMANCE CONSULTANT 11/23/23 Mining Plant Operator Relationship Specialty Start Date End Date Kromer, Karly PCP - [facility] HUMAN PERFORMANCE CONSULTANT 11/23/23 Mining Plant Operator Relationship Specialty Start Date End Date Kromer, Karly PCP - [facility] HUMAN PERFORMANCE CONSULTANT 11/23/23 Mining Plant Operator Relationship Specialty Start Date End Date Kromer, Karly PCP - [facility] HUMAN PERFORMANCE CONSULTANT 11/23/23 Mining Plant Operator Relationship Specialty Start Date End Date Kromer, Karly PCP - [facility] HUMAN PERFORMANCE CONSULTANT 11/23/23 Mining Plant Operator Relationship Specialty Start Date End Date Kromer, Karly PCP - [facility] HUMAN PERFORMANCE CONSULTANT 11/23/23 Mining Plant Operator Relationship Specialty Start Date End Date Kromer, Karly PCP - [facility] HUMAN PERFORMANCE CONSULTANT 11/23/23 Mining Plant Operator Relationship Specialty Start Date End Date Kromer, Karly PCP - [facility] 11/23/23 Team Status: Inactive Member Role Status Dates NON STAFF Primary Care Provider Active Start: November 09, 2024 End: November 09, 2024 Rajwinder Bang APRN Attending Provider Active S tart: November 09, 2024 End: November 09, 2024 Team Status: Inactive Member Role Status Dates NON STAFF Primary Care Provider Active Start: November 15, 2024 End: November 15, 2024 Fred Longoria PA-C Attending Provider Active St art: November 15, 2024 End: November 15, 2024 Team Status: Inactive Member Role Status Dates NON STAFF Primary Care Provider Active Start: February 06, 2025 End: February 07, 2025 Valente Hebert DO Emergency Provider Active St art: February 06, 2025 End: February 07, 2025 Mining Plant Operator Relationship Specialty Start Date End Date Karly Baca PCP - [facility] 11/23/23 Mining Plant Operator Relationship Specialty Start Date End Date Aniketomer Karly PCP - [facility] 11/23/23 Goals (unrecognized section and content) Goals may be documented in a n alternate section INFORMATION SOURCE (unrecogn ized section and content) DATE CREATED AUTHOR 09/27/2022 [facility] DATE CREATED AUTHOR AUTHOR'S ORGANIZ ATION 02/11/2023 [facility] DATE CREATED AUTHOR AUTHOR'S ORGANIZ ATION 03/13/2023 [facility] DATE CREATED AUTHOR AUTHOR'S ORGANIZ ATION 04/07/2023 [facility] DATE CREATED AUTHOR AUTHOR'S ORGANIZ ATION [facility]2024 [facility] DATE CREATED AUTHOR AUTHOR'S ORGANIZ ATION 03/26/2024 [facility] DATE CREATED AUTHOR AUTHOR'S ORGANIZ ATION 03/28/2024 [facility] DATE CREATED AUTHOR AUTHOR'S ORGANIZ ATION 02/08/2025 [facility] DATE CREATED AUTHOR AUTHOR'S ORGANIZ ATION 02/08/2025 [facility] EPIC Source Comments (unrecognize d section and content) In the event this informatio n is protected by the Federal Confidentiality of Alcohol and Drug Abuse Patient Records regulations: The Federal rules restrict any use of the information to criminally investigate or prosecute any alcohol or drug abuse patient.[facility] the event this information is protected by the Federal Confidentiality of Alcohol and Drug Abuse Patient Records regulations: The Federal rules restrict any use of the information to criminally investigate or prosecute any alcohol or drug abuse patient.[facility] the event this information is protected by the Federal Confidentiality of Alcohol and Drug Abuse Patient Records regulations: The Federal rules restrict any use of the information to criminally investigate or prosecute any alcohol or drug abuse patient.[facility] the event this information is protected by the Federal Confidentiality of Alcohol and Drug Abuse Patient Records regulations: The Federal rules restrict any use of the information to criminally investigate or prosecute any alcohol or drug abuse patient.[facility] the event this information is protected by the Federal Confidentiality of Alcohol and Drug Abuse Patient Records regulations: The Federal rules restrict any use of the information to criminally investigate or prosecute any alcohol or drug abuse patient.[facility] the event this information is protected by the Federal Confidentiality of Alcohol and Drug Abuse Patient Records regulations: The Federal rules restrict any use of the information to criminally investigate or prosecute any alcohol or drug abuse patient.[facility] the event this information is protected by the Federal Confidentiality of Alcohol and Drug Abuse Patient Records regulations: The Federal rules restrict any use of the information to criminally investigate or prosecute any alcohol or drug abuse patient.[facility] the event this information is protected by the Federal Confidentiality of Alcohol and Drug Abuse Patient Records regulations: The Federal rules restrict any use of the information to criminally investigate or prosecute any alcohol or drug abuse patient.[facility] Columbus[facility] the event this information is protected by the Federal Confidentiality of Alcohol and Drug Abuse Patient Records regulations: The Federal rules restrict any use of the information to criminally investigate or prosecute any alcohol or drug abuse patient.[facility] FOR RECORDS PERTAINING TO PATIENTS WHO ARE [...] BE BASED ON THE PRIMARY CLINICAL RECORDS. [employer] agreement24 [email or web address] [facility]. provides no warranty or guarantee of the accuracy or completeness of information in this document.
--- NOTE | 2025-02-09 16:06 | ECG_ITS ---
[facility] Test Date: 2025-02-09 Pat Name: SAROJ MEMBRENO Department: Room: - Gender: Female Nurse Sitter: : 2000 Requested By: 1030 Order Number: [id number] Reading MD: SHAE HAYES M.D. Measurements Intervals [place] Rate: 70 P: 43 IL: 170 QRS: 72 QRSD: 68 T: 41 QT: 390 QTc: 411 Interpretive Statements 1100 Sinus rhythm 8102 Low QRS voltage in chest leads 9120 atypical ECG Compared to ECG 12/25/2017 10:58:54 Low QRS voltage now present Electronically Signed On 02-09-2025 18:17:44 EDT by SHAE HAYES M.D.
--- NOTE | 2025-02-09 16:06 | ED_ITS ---
HPI HPI - General Adult General Chief complaint: Recheck/Abnormal Lab/Rx Stated complaint: BLOOD PRESSURE PROBLEMS Time Seen by Provider: 02/09/25 16:01 Source: patient Mode of arrival: walk-in History of Present Illness HPI narrative: 25-year-old female who is 15 weeks presents to the emergency department for low blood pressure. 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 She has been having low blood pressure all week. She had been vomiting several days ago but that was improved with Zofran and she stopped vomiting. No abdominal pain or bleeding. Related Data Home Medications ?Medication ?Instructions ?Recorded ?Confirmed trazodone 50 mg tablet 50 mg PO QPM PRN sleep 01/1901/20/24 Previous Rx's ?Medication ?Instructions ?Recorded ketorolac 10 mg tablet 10 mg PO TID PRN pain #10 ta bs 01/20/24 prednisone 20 mg tablet See Rx Instructions .Route 0 01/20/24 .COMPLEX #12 tabs amoxicillin 875 mg-potassium 1 tab PO Q12H #14 tabs clavulanate 125 mg tablet Allergies Allergy/AdvReac Type Severity Reaction Status Date / Time No Known Drug Allergies Allergy Verified 01/20/24 12:43 Opioid HPI Opioid Management Most Recent Opioid Data: Last Pain Scale 10 01/20/24, 13:28 Review of Systems ROS Narrative A ten point review of systems is negative except as noted above. PFSH PFSH Social History Little interest or pleasure in doing things: not at all Feeling down, depressed, or hopeless: not at all Exam Narrative Exam Narrative: Nurses note and vital signs reviewed and patient is not hypoxic. General: The patient appears well and in no apparent distress. Patient is resting comfortably on cart. Skin: Warm, dry, no pallor noted. There is no rash noted. Head: Normocephalic, atraumatic Eye: Normal conjunctiva, no drainage Ears, Nose, Mouth, and Throat: oral mucosa is moist. Nares patent. Cardiovascular: Regular Rate and Rhythm Respiratory: Patient is in no distress, no accessory muscle use, lungs are clear to auscultation, no wheezing, rales or rhonchi Back: non-tender GI: Obese and nontender Musculoskeletal: The patient has no evidence of calf tenderness, no pitting edema, symmetrical pulses noted bilaterally Neurological: A&O, normal speech Psychiatric: Cooperative Constitutional Vital Signs, click to edit/add: Last Vital Signs Temp 97.9 F 02/09/25 15:35 Pulse 73 02/09/25 18:30 Resp 18 02/09/25 18:15 BP 113/70 02/09/25 18:30 Pulse Ox 100 02/09/25 16:50 O2 Del Method Room Air 02/09/25 15:35 Course Vital Signs Vital signs: Vital Signs Temperature 97.9 F 02/09/25 15:35 Pulse Rate 72 02/09/25 15:35 Respiratory Rate 18 02/09/25 15:35 Blood Pressure 108/70 02/09/25 15:35 Pulse Oximetry 98 02/09/25 15:35 Oxygen Delivery Method Room Air 02/09/25 15:35 Temperature 97.9 F 02/09/25 15:35 Pulse Rate 73 02/09/25 18:30 Respiratory Rate 18 02/09/25 18:15 Blood Pressure 113/70 02/09/25 18:30 Pulse Oximetry 100 02/09/25 16:50 Oxygen Delivery Method Room Air 02/09/25 15:35 Medical Decision Making MDM Narrative Medical decision making narrative: Blood work is appropriate. She was given 2 L of IV fluid and feels improved and her blood pressure is improved as well and she is able to be discharged home. Treatment diagnosis and follow-up were discussed with the patient. Differential Diagnosis Differential Diagnosis: Dehydration, acute kidney injury, electrolyte imbalance Lab Data Lab results reviewed: Yes I reviewed the patient's lab results Labs: Lab Results 02/09/25 02/09/25 Range/Units 16:06 17:06 WBC 10.3 (4.0-11.0) 10^3/uL RBC 4.41 (4.20-5.40) 10^6/uL Hgb 13.2 (12.0-16.0) g/dL Hct 38.1 (36.0-48.0) % MCV 86.4 (81.0-99.0) fL MCH 29.9 (26.7-34.0) pg MCHC 34.6 (29.9-35.2) g/dL RDW 12.5 (11.0-15.0) % Plt Count 221 (150-450) 10^3/uL MPV 10.0 (9.5-13.5) fL Neut % (Auto) 69.2 (43.0-75.0) % Lymph % (Auto) 23.6 (20.5-60.0) % [place] % (Auto) 6.2 (1.7-12.0) % Eos % (Auto) 0.6 L (0.9-7.0) % Baso % (Auto) 0.1 L (0.2-2.0) % Neut # (Auto) 7.1 H (1.4-6.5) 10^3/uL Lymph # (Auto) 2.4 (1.2-3.8) 10^3/uL [place] # (Auto) 0.6 (0.3-0.8) 10^3/uL Eos # (Auto) 0.1 (0.0-0.7) 10^3/uL Baso # (Auto) 0.0 (0.0-0.1) 10^3/uL Abs Immat Gran (auto) 0.03 (0.00-0.03) 10^3/uL Imm/Tot Granulo (auto) 0.3 (0.0-0.5) % Sodium 138 (136-145) mmol/L Potassium 3.7 (3.5-5.1) mmol/L Chloride 103 (98-107) mmol/L Carbon Dioxide 24.2 (21.0-32.0) mmol/L Anion Gap 14.5 BUN 4.0 L (7.0-18.0) mg/dL Creatinine 0.42 L (0.55-1.02) mg/dL Est GFR ( Amer) >60 (>=60 mL/min/1.73m^2) Est GFR (Non-Af Amer) >60 (>=60 mL/min/1.73m^2) BUN/Creatinine Ratio 9.5 Glucose 83 (74-106) mg/dL Calcium 8.7 (8.5-10.1) mg/dL Urine Color Lt. yellow (YELLOW) Urine Clarity Clear (CLEAR) Urine pH 6.0 (5.0-9.0) Ur Specific [place] 1.010 (1.005-1.025) Urine Protein Negative (NEG/TRACE) mg/dL Urine Glucose (UA) Negative (NEGATIVE) mg/dL Urine Ketones 40 A (NEGATIVE) mg/dL Urine Occult Blood Negative (NEGATIVE) Urine Nitrite Negative (NEGATIVE) Urine Bilirubin Negative (NEGATIVE) Urine Urobilinogen 0.2 (0.2-1.0) EU/dL Ur Leukocyte Esterase Negative (NEGATIVE) Urine RBC None seen (0-2) #/HPF Urine WBC 0-2 A (NONE SEEN) #/HPF Ur Squamous Epith Cells Few A (NONE/RARE) #/LPF Urine Crystals None seen (None Seen) #/HPF Urine Bacteria Trace A (NONE SEEN) #/HPF Urine Casts None seen (NONE SEEN) #/LPF Urine Mucus None seen (NONE SEEN) Ur Culture Indicated? No ECG Data Attestation: I personally reviewed and interpreted this ECG as follows: (EKG on my interpretation shows sinus rhythm with a rate of 70 and no acute) Discharge Plan Discharge Chief Complaint: Recheck/Abnormal Lab/Rx Clinical Impression: Fluid volume depletion Patient Disposition: Home, Self-Care Time of Disposition Decision: 18:52 Condition: Good Mode of Transportation: Private Vehicle Prescriptions / Home Meds: No Action trazodone 50 mg tablet 50 mg PO QPM PRN (Reason: sleep) prednisone 20 mg tablet See Rx Instructions .ROUTE .COMPLEX Qty: 12 0RF Rx Instructions: 3 tabs daily for 2 days, then 2 tabs daily for 2 days, then 1 tab daily for 2 days ketorolac 10 mg tablet 10 mg PO TID PRN (Reason: pain) Qty: 10 0RF amoxicillin-pot clavulanate 875-125 mg tablet 1 tab PO Q12H Qty: 14 0RF Print Language: Monegasque Instructions: Dehydration (ED) Referrals: RICKEY OCHOA [Primary Care Provider, Unknown] - 1 week
[2025-02-09] MEDS: 0.9 % SODIUM CHLORIDE 1,000 ML 1000 ML IV ×2 (16:18→17:48)
[2025-02-09 16:23] LABS: Hematocrit 38.1 % (36.0-48.0); Hemoglobin 13.2 g/dL (12.0-16.0); Immature Granulocytes Abs Auto 0.03 10^3/uL (0.00-0.03); Immature Granulocytes Pct Auto 0.3 % (0.0-0.5); Lymphocytes Absolute Auto 2.4 10^3/uL (1.2-3.8); Mean Corpuscular HGB Conc 34.6 g/dL (29.9-35.2); Mean Corpuscular Hemoglobin 29.9 pg (26.7-34.0); Mean Corpuscular Volume 86.4 fL (81.0-99.0); Platelet Count 221 10^3/uL (150-450); Red Blood Count 4.41 10^6/uL (4.20-5.40); White Blood Count 10.3 10^3/uL (4.0-11.0)
[2025-02-09 16:37] LABS: Anion Gap 14.5; Blood Urea Nitrogen 4.0 mg/dL (7.0-18.0); Calcium 8.7 mg/dL (8.5-10.1); Carbon Dioxide 24.2 mmol/L (21.0-32.0); Chloride 103 mmol/L (98-107); Estimated GFR (African America >60 (>=60 mL/min/1.73m^2); Estimated GFR (Non-African Ame >60 (>=60 mL/min/1.73m^2); Glucose 83 mg/dL (74-106); Potassium 3.7 mmol/L (3.5-5.1); Sodium 138 mmol/L (136-145)
[2025-02-09 17:34] LABS: Glucose Urine UA NEGATIVE (NEGATIVE)
[2025-02-09 17:52] LABS: Cast Seen? NONE SEEN #/LPF (NONE SEEN); Crystals Seen? None Seen #/HPF (None Seen); Urine Culture Indicated NO
== END 2025-02-09 19:22 | disposition home or self-care (01) ==
PROVIDERS: Emergency Provider Emergency Medicine; PCP Nurse Practitioner Family
DX: O99.282 Endocrine, nutritional and metabolic diseases complicating pregnancy, second trimester (principal); Z3A.15 15 weeks gestation of pregnancy; E86.9 Volume depletion, unspecified
CPT/HCPCS: 36415; 80048; 81001; 85025; 93005; 96360; 96361; 99285

== ENCOUNTER 2025-02-15 17:26 | Emergency (ER) | payer MEDICAID, SELFPAY ==
--- OUTSIDE RECORDS SUMMARY | 2024-12-05 04:00 | XMS_ITS ---
Author Organization [facility] Address [address] [place] [address] Care Team Providers Care Sales Promotion Coordinator Name Role Phone Maria R Glynn Primary Care Provider [phone] Cinda Cordon REASON FOR VISIT PT 11 WEEKS Encounters Encounter Location Date Provider Diagnosis [facility] [address] [place] [address] 12/05/2024 Cinda Medina Plan Of Treatment Next Appt Details Provider Name:Kelly Saul , 06/07/2025 08:00:00 AM, [address], [place], [address], Progress Notes * SAROJ MEMBRENODOB: [birth year] (25 yo F)Acc No.[id number]:12/05/2024 Patient: ANNMARIE COLBERTTEN Provider: Lincoln MEDINA DDS :2000 A ge:24 Y S ex:Female Date:12/05/2024 Address:[address], [address], [id number] Pcp:Maria R Glynn Subjective: * Chief Complaints: * 1 . PT 11 WEEKS . * Medical History: Objective: * Vitals: Assessment: Plan: * Treatment: * Images: * Electronic signature of Lucy Medina DDS on 02/15/2025 at 05:35 PM EDT Sign off status: Pending * Provider: Lincoln MEDINA DDS Date: 0 12/05/2024 Generated for Keke sebastian/Marga/Jose on: 0 02/15/2025 05:35 PM EDT
--- OUTSIDE RECORDS SUMMARY | 2024-12-05 09:45 | XMS_ITS ---
Author Organization [facility] Address [address] [place] [address] Care Team Providers Care Storage Management Consultant Name Role Phone Maria R Glynn Primary Care Provider Veronique Wilson Unavailable [phone] REASON FOR VISIT 1 month f/u Encounters Encounter Location Date Provider Diagnosis [place] [address] [place] [address] 12/05/2024 Veronique Wilson Plan Of Treatment Next Appt Details Provider Name:Kelly Saul , 06/07/2025 08:00:00 AM, [address], [place], [address], Progress Notes * SAROJ MEMBRENODOB: [birth year] (25 yo F)Acc No.[id number]:12/05/2024 Behavioral Health Patient: ANNMARIE COLBERTTEN Appointment Provider: BENIGNO JARAMILLO :2000 A ge:24 Y S ex:Female Date:12/05/2024 Address:[address], [address], [id number] Pcp:Maria R Glynn Subjective: * Chief Complaints: * 1 . 1 month f/u. * Medical History: Objective: * Vitals: Assessment: Plan: * Treatment: * Images: * Electronic signature of MAGGIE Ignacio i on 02/15/2025 at 05:34 PM EDT Sign off status: Pending * Appointment Provider: MAGGIE JARAMILLO- Date: 0 12/05/2024 Generated for Keke sebastian/Marga/Jose on: 0 02/15/2025 05:34 PM EDT
--- OUTSIDE RECORDS SUMMARY | 2025-01-02 06:00 | XMS_ITS ---
Author Organization [facility] Address [address] [place] [address] Care Team Providers Care Transportation Modeler Name Role Phone Maria R Glynn Primary Care Provider Ignacia Ellington Unavailable Unavailable REASON FOR VISIT PROPHY Encounters Encounter Location Date Provider Diagnosis [facility] [address] [place] [address] 01/02/2025 Ignacia Ellington Plan Of Treatment Next Appt Details Provider Name:Kelly Saul , 06/07/2025 08:00:00 AM, [address], [place], [address], Progress Notes * SAROJ MEMBRENODOB: [birth year] (25 yo F)Acc No.[id number]:01/02/2025 Patient: ASROJ COLBERT Provider: Mulu Ell[address] :2000 A ge:24 Y S ex:Female Date:01/02/2025 Address[place], [id number] Pcp:Maria R Glynn Subjective: * Chief Complaints: * 1 . PROPHY. * Medical History: Objective: * Vitals: Assessment: Plan: * Treatment: * Images: * Electronic signature of Eliot Ellington on 02/15/2025 at 05:35 PM EDT Sign off status: Pending * Provider: Mulu Ell[address] Date: 0 01/02/2025 Generated for Keke sebastian/Marga/Jose on: 0 02/15/2025 05:35 PM EDT
--- OUTSIDE RECORDS SUMMARY | 2025-01-27 07:00 | XMS_ITS ---
Author Organization [facility] Address [address] [place] [address] Care Team Providers Care Junior Programmer Analyst Name Role Phone Maria R Glynn Primary Care Provider Dr. Burt Jarrett Unavailable [phone] REASON FOR VISIT FILLING X3 Encounters Encounter Location Date Provider Diagnosis [place] [address] [facility] [place] [address] 2024 Burt Jarrett Plan Of Treatment Next Appt Details Provider Name:Kelly Saul , 06/07/2025 08:00:00 AM, [address], [place], [address], Progress Notes * SAROJ MEMBRENODOB: [birth year] (25 yo F)Acc No.[id number]:01/27/2025 Patient: SAROJ COLBERT Provider: Chantale Jarrett DDS :2000 A ge:25 Y S ex:Female Date:01/27/2025 Address:[address], [address], [id number] Pcp:Maria R Glynn Subjective: * Chief Complaints: * 1 . FILLING X3. * Medical History: Objective: * Vitals: Assessment: Plan: * Treatment: * Images: * Electronic signature of Dr. Burt Jarrett , DMD on 02/15/2025 at 05:35 PM EDT Sign off status: Pending * Provider: Chantale Jarrett DDS Date: 01/27/2025 Generated for Keke Quan/Jose on: 02/15/2025 05:35 PM EDT
--- OUTSIDE RECORDS SUMMARY | 2025-02-02 04:00 | XMS_ITS ---
Author Organization [facility] Address [address] [place] [address] Care Team Providers Care Client Support Representative Name Role Phone Maria R Glynn Primary Care Provider [phone] Dr. Burt Jarrett Unavailable [phone] REASON FOR VISIT FILLING X2 Encounters Encounter Location Date Provider Diagnosis [address] [place] [address] 2024 Burt Jarrett Plan Of Treatment Next Appt Details Provider Name:Kelly Saul , 06/07/2025 08:00:00 AM, [address], [place], [address], Progress Notes * SAROJ MEMBRENODOB: [birth year] (25 yo F)Acc No.[id number]:02/02/2025 Patient: SAROJ COLBERT Provider: Chantale Jarrett DDS :2000 A ge:25 Y S ex:Female Date:02/02/2025 Address:[address], [address], [id number] Pcp:Maria R Glynn Subjective: * Chief Complaints: * 1 . FILLING X2. * Medical History: Objective: * Vitals: Assessment: Plan: * Treatment: * Images: * Electronic signature of Dr. Burt Jarrett , DMD on 02/15/2025 at 05:34 PM EDT Sign off status: Pending * Provider: Chantale Jarrett DDS Date: 0 02/02/2025 Generated for Keke sebastian/Marga/Jose on: 0 02/15/2025 05:34 PM EDT
--- OUTSIDE RECORDS SUMMARY | 2025-02-07 09:50 | XMS_ITS | Encounter Summary ---
Author Organization [facility] Address [address] [place] [address] Care Team Providers Care Hydrotel Operator Name Role Phone Karly Baca Unavailable Unavailable Reason for Visit * Reason Comments Routine Visit Encounter Details Date Type Department Care Team (Late st Contact Info) Description 02/07/2025 9:50 AM EDT Routine [facility] [address] [place] [address] Ira Jensen PA [address] [place], [facility]11 Vaginal discharge; Second trimester ([facility] 15 weeks gestation of ([facility]); Nausea and vomiting in ([facility]) Social History Tobacco Use Types Packs/Day Years [...] Sign Reading Time Taken Comments Blood Pressure 100/70 02/07/2025 10:25 AM EDT Pulse - - Temperature - - Respiratory Rate - - Oxygen Saturation - - Inhaled Oxygen Concentration - - Weight 135 kg (297 lb 4 oz) 02/07/2025 10:25 AM EDT Height - - Body Mass Index 52.66 12/08/2022 2:02 PM EDT documented in this encounter Progress Notes * RAMÍREZ Castle - 02/07/2025 9:50 AM EDT Reason for Appointment: Patient ID: Mark Viera is a 25 y.o. female who presents for Routine Visit Patient presents today for Return OB appointment. MEDICATIONS Current Outpatient Medications Medication Instructions magnesium oxide (MAG-OX) 400 mg, Oral, Daily ondansetron (ZOFRAN) 4 mg, Oral, Every 6 hours PRN, Take 1 tablet by mouth every 6 hours as needed for nausea. Vit-Fe Fumarate-FA ( Vitamins) 28-0.8 MG tablet 1 tablet, Oral, Daily valACYclovir (VALTREX) 1,000 mg, 2 times daily ALLERGIES No Known Allergies PROBLEMS Active Ambulatory Problems Diagnosis Date Noted No Active Ambulatory Problems Resolved Ambulatory Problems Diagnosis Date Noted No Resolved Ambulatory Problems Past Medical History: Diagnosis Date ADHD (attention deficit hyperactivity disorder) Asthma (HCC) Depression with anxiety HSV (herpes simplex virus) infection PTSD (post-traumatic stress disorder) Shingles Urogenital trichomoniasis Varicella zoster HISTORY PAST MEDICAL HISTORY SOCIAL HISTORY Past Medical History: Diagnosis Date ADHD (attention deficit hyperactivity disorder) Asthma (HCC) Depression with anxiety HSV (herpes simplex virus) infection PTSD (post-traumatic stress disorder) Shingles Urogenital trichomoniasis Varicella zoster vaccine in childhood Social History Tobacco Use Smoking status: Never Smokeless tobacco: Never Vaping Use Vaping status: Never Used Substance Use Topics Alcohol use: Not Currently Comment: caffeine intake: none Drug use: Never FAMILY HISTORY Family History Problem Relation Name [...] Paternal Grandmother No Known Problems Paternal Grandfather SURGICAL HISTORY Past Surgical History: Procedure Laterality Date WISDOM TOOTH EXTRACTION 2019 REVIEW OF SYSTEMS Review of Systems: Review of Systems Constitutional: Negative. HENT: Negative. Eyes: Negative. Respiratory: Negative. Cardiovascular: Negative. Gastrointestinal: Negative. Genitourinary: Negative. Musculoskeletal: Negative. Skin: Negative. Neurological: Negative. All other systems reviewed and are negative. Hematological: Negative. Endocrine: Negative. Allergic/Immunologic: Negative. OBJECTIVE Objective: Physical Exam Constitutional: Appearance: Normal appearance. She is normal weight. HENT: Head: Normocephalic. Cardiovascular: Rate and Rhythm: Normal rate. Pulses: Normal pulses. Pulmonary: Effort: Pulmonary effort is normal. Breath sounds: Normal breath sounds. Abdominal: Palpations: Abdomen is soft. Musculoskeletal: General: Normal range of motion. Neurological: General: No focal deficit present. Mental Status: She is alert and oriented to person, place, and time. Psychiatric: Mood and Affect: Mood normal. Behavior: Behavior normal. Thought Content: Thought content normal. Judgment: Judgment normal. Vitals and nursing note reviewed. Vitals: Estimated body mass index is 52.66 kg/m?? as calculated from the following: Height as of 12/08/22: 5' 3 . Weight as of this encounter: 297 lb 4 oz. BP: 100/70 Patient's last menstrual period was 09/18/2024. ASSESSMENT & PLAN ICD-10-CM 1. Vaginal discharge N89.8 POCT urinalysis dipstick manually resulted SURESWAB(R) ADVANCED VAGINITIS PLUS, TMA CHLAMYDIA TRACHOMATIS (GENITO/STI) Neisseria gonorrhea DNA probe, direct 2. Second trimester ([facility]) Z34.92 3. 15 weeks gestation of ([facility]) Z3A.15 4. Nausea and vomiting in ([facility]) O21.9 magnesium oxide (Mag-Ox) 400 MG tablet ondansetron (Zofran) 4 MG tablet Return OB: Patient presents today for a routine obstetrics appointment. Patient is currently 15w1d . Patient states she is doing well but has complaints of being tired due to current . Patient has verbalizes frequent movement. Orders Placed This Encounter Procedures CHLAMYDIA TRACHOMATIS (GENITO/STI) Neisseria gonorrhea DNA probe, direct POCT urinalysis dipstick manually resulted Follow Up: Patient is to return to office in 4week for routine OB appointment. Documented by RAMÍREZ Castle on behalf of: RAMÍREZ Castle documented in this encounter Plan of Treatment Upcoming Encounters Date Type Department Care Team ([facility] Contact Info) Description 03/06/2025 10:00 AM EDT Routine [facility] [address] [place] [address] Rodrigo Guzman DO [address] [place] [address] Scheduled Orders Name Type Priority Associated Diagnoses Order Schedule SURESWAB(R) ADVANCED VAGINITIS PLUS, TMA Pathology and Cytology Routine Vaginal discharge Ordered: 02/07/2025 CHLAMYDIA TRACHOMATIS (GENITO/STI) Lab Routine Vaginal discharge Ordered: 02/07/2025 Neisseria gonorrhea DNA probe, direct Lab Routine Vaginal discharge Ordered: 02/07/2025 documented as of this encounter Goals Goal Patient Goal Type Associated Problems Recent Progress Patient-Stated? Author Reminders Care Plan OB Reminders No Darlyn Gonzalez RN documented as of this encounter Procedures Procedure Name Priority Date/Time Associated Diagnosis Comments POCT URINALYSIS DIPSTICK Routine 02/07/2025 10:32 AM EDT Vaginal discharge documented in this encounter Results * POCT urinalysis dipstick manually resulted (02/07/2025 10:32 AM EDT) Color, UA Yellow Clarity, UA Clear Glucose, UA Negative Negative - 2000(110) ++++ mg/dL Bilirubin, UA Negative Negative - 4(70) +++ mg/dL Ketones, UA Negative Negative - 160(16) ++++ mg/dL Spec Grav, UA 1.010 1 - 1.03 Blood, UA Negative Negative - 50 Dao/mcL pH, UA 7.0 5 - 9 Protein, UA Negative Negative - 2000(20) ++++ mg/dL Urobilinogen, UA 0.2 0.2 - 12 mg/dL Leukocytes, UA Negative Negative - 500+++ Hernandez/mcL Nitrite, UA Negative Negative - Positive Urine 02/07/2025 10:3 2 AM EDT Ira ELMORE POINT OF CARE TEST ENTER/EDIT OR DERABLES Final Result documented in this encounter Visit Diagnoses Diagnosis Vaginal discharge Leukorrhea, not specified as infective Second trimester ([facility]) state, incidental 15 weeks gestation of ([facility]) Nausea and vomiting in ([facility]) Unspecified vomiting of , unspecified as to episode of care documented in this encounter Additional Health Concerns Active Problems Noted Date Diagnosed Date OB Reminders 12/02/2024 documented as of this encounter Care Teams Hydrotel Operator Relationship Specialty Start Date End Date Karly Baca PCP - [facility] COLD STRIP ROLLER 11/23/23 documented as of this encounter
--- OUTSIDE RECORDS SUMMARY | 2025-02-09 14:40 | XMS_ITS | Encounter Summary ---
Author Organization [facility] Address [address] [place] [address] Care Team Providers Care Motor Vehicle Operator Road Supervisor Name Role Phone Karly Baca Unavailable Unavailable Reason for Referral * Medications - Closed Specialty Diagnoses / Procedures Referred By Simba t Referred To Contact Diagnoses Nonintractable headache, unspecified chronicity pattern, unspecified headache type Ira Jensen PA [address] [place] [address] Phone: tel: fax: Referral ID Status Reason Start Date Expiration Date Visits Re quested Visits Authorized [id number] Closed 1 1 Reason for Visit * Reason Comments Routine Visit Encounter Details Date Type Department Care Team (Late st Contact Info) Description 02/09/2025 2:40 PM EDT Routine JACQUELINE ESTEBAN [address] [id number] Ira Jensen PA [address] [place] [address] 15 weeks gestation of ([facility]); Second trimester ([facility]); Blood pressure check; Nonintractable headache, unspecified chronicity pattern, unspecified headache type; Nausea Social History Tobacco Use Types Packs/Day Years [...] Sign Reading Time Taken Comments Blood Pressure 100/62 02/09/2025 2:48 PM EDT Pulse - - Temperature - - Respiratory Rate - - Oxygen Saturation - - Inhaled Oxygen Concentration - - Weight 135 kg (296 lb 12.8 oz) 02/09/2025 2:48 P M EDT Height - - Body Mass Index 52.58 12/08/2022 2:02 PM EDT documented in this encounter Progress Notes * RAMÍREZ Castle - 02/09/2025 2:40 PM EDT Reason for Appointment: Patient ID: Mark Viera is a 25 y.o. female who presents for Routine Visit Patient presents today for Acute Visit. and Return OB appointment. MEDICATIONS Current Outpatient Medications Medication Instructions magnesium oxide (MAG-OX) 400 mg, Oral, Daily ondansetron (ZOFRAN) 4 mg, Oral, Every 6 hours PRN, Take 1 tablet by mouth every 6 hours as needed for nausea. Vit-Fe Fumarate-FA ( Vitamins) 28-0.8 MG tablet 1 tablet, Oral, Daily ALLERGIES No Known Allergies PROBLEMS Active Ambulatory [...] Negative. Endocrine: Negative. Allergic/Immunologic: Negative. OBJECTIVE Objective: OBGyn Exam Vitals: Estimated body mass index is 52.58 kg/m?? as calculated from the following: Height as of 12/08/22: 5' 3 . Weight as of this encounter: 296 lb 12.8 oz. BP: 100/62 Patient's last menstrual period was 09/18/2024. ASSESSMENT & PLAN ICD-10-CM 1. 15 weeks gestation of ([facility]) Z3A.15 POCT urinalysis dipstick manually resulted 2. Second trimester ([facility]) Z34.92 POCT urinalysis dipstick manually resulted 3. Blood pressure check Z01.30 4. Nonintractable headache, unspecified chronicity pattern, unspecified headache type R51.9 5. Nausea R11.0 Patient returned today due to headache and dizziness. Orhtostats performed and pt became dizzy. We will sent to er for evaluation and add tylenol #3 and phenergan to her regimen. Pt to follow up as scheduled Documented by RAMÍREZ Castle on behalf of: RAMÍREZ Castle documented in this encounter Plan of Treatment Upcoming Encounters Date Type Department Care Team (Late st Contact Info) Description 03/06/2025 10:00 AM EDT Routine [facility] [address] [place] [phone] Rodrigo Guzman DO [address] [place] [address] documented as of this encounter Goals Goal Patient Goal Type Associated Problems Recent Progress Patient-Stated? Author Reminders Care Plan OB Reminders Darlyn Colbert RN documented as of this encounter Procedures Procedure Name Priority Date/Time Associated Diagnosis Comments POCT URINALYSIS DIPSTICK Routine 02/09/2025 2:55 PM EDT 15 weeks gestation of ([facility]) Second trimester ([facility]) documented in this encounter Results * POCT urinalysis dipstick manually resulted (02/09/2025 2:55 PM EDT) Color, UA Yellow Clarity, UA Clear Glucose, UA Negative Negative - 2000(110) ++++ mg/dL Bilirubin, UA Negative Negative - 4(70) +++ mg/dL Ketones, UA Negative Negative - 160(16) ++++ mg/dL Spec Grav, UA 1.015 1 - 1.03 Blood, UA Negative Negative - 50 Dao/mcL pH, UA 6.5 5 - 9 Protein, UA Negative Negative - 2000(20) ++++ mg/dL Urobilinogen, UA 1.0 0.2 - 12 mg/dL Leukocytes, UA Negative Negative - 500+++ Hernandez/mcL Nitrite, UA Negative Negative - Positive Urine 02/09/2025 2:55 PM EDT Ira ELMORE POINT OF CARE TEST ENTER/EDIT OR DERABLES Final Result documented in this encounter Visit Diagnoses Diagnosis 15 weeks gestation of ([facility]) Second trimester ([facility]) state, incidental Blood pressure check Screening for hypertension Nonintractable headache, unspecified chronicity pattern, unspecified headache type Nausea Nausea alone documented in this encounter Additional Health Concerns Active Problems Noted Date Diagnosed Date OB Reminders 12/02/2024 documented as of this encounter Care Teams Motor Vehicle Operator Road Supervisor Relationship Specialty Start Date End Date Karly Baca PCP - [facility] 11/23/23 documented as of this encounter
[2025-02-15 17:33] VITALS: BP 129/72; PULSE 85; TEMP 36.6; O2SAT 100; BMI 52.4
--- OUTSIDE RECORDS SUMMARY | 2025-02-15 17:34 | XMS_ITS | Encounter Summary ---
Author Organization [facility] Address [address] [place] [address] Care Team Providers Care Retail Loan Originator Assistant Name Role Phone Maria R Disla DIECAST MACHINE OPERATOR Unavailable [phone] Source Comments In the event this information is protected by the Federal Confidentiality of Alcohol and Drug AbusePatient Records regulations: The Federal rules restrict any use of the information to criminally investigate or prosecute any alcohol or drug abuse patient.[facility] Encounter Details Date Type Department Care Team (Late st Contact Info) Description 08/08/2024 Patient Msg General Surgery [address] [place], [place] [id number] Provider, [facility] Join the weight loss study: [...] lower risk 6 01/19/2023 Data from: https://www.neighborhoodatlas.medicine.[facility].edu/. Last address used for calculation [address] [...] on filedocumented in this encounter Care Teams Retail Loan Originator Assistant Relationship Specialty Start Date End Date Maria R Disla CNP [address] [place] [id number] Referring Family Medicine 01/07/23 documented as of this encounter
--- OUTSIDE RECORDS SUMMARY | 2025-02-15 17:34 | XMS_ITS | Encounter Summary ---
Author Organization [facility] Address [address] [place] [address] Care Team Providers Care Bleacher [employer] Name Role Phone Maria R Disla TESTER SOUND Unavailable [phone] Source Comments In the event this information is protected by the Federal Confidentiality of Alcohol and Drug AbusePatient Records regulations: The Federal rules restrict any use of the information to criminally investigate or prosecute any alcohol or drug abuse patient.[facility] Encounter Details Date Type Department Care Team (Late st Contact Info) Description 02/10/2023 Patient Msg Nutrition [address] [place] [id number] Provider, [facility] Nutrition Visit Social History Tobacco [...] is lower risk 6 01/19/2023 Data from: https://www.neighborhoodatlas.medicine.[facility].edu/. Last address used for calculation [address] [facility] 01/19/2023 Comments No Sex and Gender Information [...] on filedocumented in this encounter Care Teams [employer]acher [employer] Relationship Specialty Start Date End Date Maria R Disla CNP [address] [place] [address] Referring Family Medicine 01/07/23 documented as of this encounter
--- OUTSIDE RECORDS SUMMARY | 2025-02-15 17:34 | XMS_ITS | Encounter Summary ---
Author Organization [facility] Address [address] [place] [address] Care Team Providers Care Washer Meat Name Role Phone Karly Baca Unavailable Unavailable Encounter Details Date Type Department Care Team (Late Contact Info) Description 01/30/2025 Abstract [facility] [address] [facility] [place] [address] Rodrigo Guzman DO [address], [facility]11 Social History Tobacco Use Types Packs/Day [...] Department Care Team (Late Contact Info) Description 03/06/2025 10:00 AM EDT Routine [facility] [address] [place] [address] Rodrigo Guzman DO [address], [place] [id number] documented as of this encounter Goals Goal Patient Goal Type Associated Problems Recent Progress Patient-Stated? Author Reminders Care Plan OB Reminders No Darlyn Gonzalez RN documented as of this encounter Visit Diagnoses Not on filedocumented in this encounter Additional Health Concerns Active Problems Noted Date Diagnosed Date OB Reminders 12/02/2024 documented as of this encounter Care Teams Washer Meat Relationship Specialty Start Date End Date Karly Baca PCP - [facility] CRISIS THERAPIST 11/23/23 documented as of this encounter
--- OUTSIDE RECORDS SUMMARY | 2025-02-15 17:34 | XMS_ITS | Encounter Summary ---
Author Organization [facility] Address [address] [place] [address] Care Team Providers Care Rn Travel Name Role Phone Karly Baca Unavailable Unavailable Encounter Details Date Type Department Care Team (Late Contact Info) Description 02/07/2025 Bamboo flowsheet [facility] [address] [facility] [place] [address] Ira Jensen PA [address] [facility] [address] [place], [id number] Social History Tobacco Use Types Packs/Day Years [...] AM EDT Routine [facility] OBGYN [address] [facility] [place] [address] Rodrigo Guzman DO [address] [facility] [address] [place], [place] [phone] documented as of this encounter Goals Goal Patient Goal Type Associated Problems Recent Progress Patient-Stated? Author Reminders Care Plan OB Reminders No Darlyn Gonzalez RN documented as of this encounter Visit Diagnoses Not on filedocumented in this encounter Additional Health Concerns Active Problems Noted Date Diagnosed Date OB Reminders 12/02/2024 documented as of this encounter Care Teams Rn Travel Relationship Specialty Start Date End Date Karly Baca PCP - [facility] ENGINEERING TECHNOLOGY INSTRUCTOR 11/23/23 documented as of this encounter
--- OUTSIDE RECORDS SUMMARY | 2025-02-15 17:34 | XMS_ITS | Encounter Summary ---
Author Organization [facility] Address [address] [place] [address] Care Team Providers Care Loader Operator/Ground Leader Name Role Phone Karly Baca Unavailable Unavailable Encounter Details Date Type Department Care Team (Late Contact Info) Description 02/09/2025 Bamboo flowsheet [facility] [address] [facility] [address] Ira Jensen PA [address] [facility] [address] [place], [facility]11 Social History Tobacco Use Types [...] AM EDT Routine [facility] [address] [facility] [address] Rodrigo Guzman DO [address] [facility] [address] [place], [place] [id number] documented as of this encounter Goals Goal Patient Goal Type Associated Problems Recent Progress Patient-Stated? Author Reminders Care Plan OB Reminders No Darlyn Gonzalez RN documented as of this encounter Visit Diagnoses Not on filedocumented in this encounter Additional Health Concerns Active Problems Noted Date Diagnosed Date OB Reminders 12/02/2024 documented as of this encounter Care Teams Loader Operator/Ground Leader Relationship Specialty Start Date End Date Karly Baca PCP - [facility] PURCH[employer]ER [employer]S 11/23/23 documented as of this encounter
--- OUTSIDE RECORDS SUMMARY | 2025-02-15 17:34 | XMS_ITS | Clinical Summary ---
Author Organization [facility] Healthcare Address [address] [place] [address] Care Team Providers Care Automotive Service Management Teacher Name Role Phone Karly Baca Unavailable Unavailable Allergies No known active allergies Medications Vit-Fe Fumarate-FA ( Vitamins) 28-0.8 MG tabletIndicatio ns:Encounter for supervision of normal first in first trimester ([facility]) Take 1 tablet by mouth Daily 30 tablet 11 12/03/19 25 026 Active magnesium oxide (Mag-Ox) 400 MG tabletIndicatio ns:Nausea and vomiting in ([facility]) Take 1 tablet (400 mg) by mouth Daily 30 tablet 6 02/08/20 25 026 Active ondansetron (Zofran) 4 MG tabletIndicatio ns:Nausea and vomiting in ([facility]) Take 1 tablet (4 mg) by mouth every 6 (six) hours if needed for nausea or vomiting for up to 120 doses Take 1 tablet by mouth every 6 hours as needed for nausea. 30 tablet 3 02/08/20 25 Active promethazine (Phenergan) 12.5 MG tabletIndicatio ns:Nonintractab le headache, unspecified chronicity pattern, unspecified headache type,Nausea Take 2 tablets (25 mg) by mouth every 6 (six) hours if needed for nausea or vomiting for up to 30 doses Take 1 tablet by mouth every 6 hours as needed for nausea. 30 tablet 2 02/10/20 25 Active valACYclovir (Valtrex) 1 g tablet Take 1,000 mg by mouth in the morning and 1,000 mg before bedtime. 11/16/19 25 025 Discontinued acetaminophen-c odeine (Tylenol w/ Codeine #3) 300-30 MG tabletIndicatio ns:Nonintractab le headache, unspecified chronicity pattern, unspecified headache type Take 1 tablet by mouth every 6 (six) hours if needed for severe pain for up to 5 days 20 tablet 02/10/20 25 025 Encounters Date Type Department Care Team Description 02/09/2025 2:40 PM EDT Routine [facility] [address] [facility] [place] [address] Ira Jensen PA 15 weeks gestation of ([facility]); Second trimester ([facility]); Blood pressure check; Nonintractable headache, unspecified chronicity pattern, unspecified headache type; Nausea 02/09/2025 Bamboo flowsheet [facility] [address] [place] [address] Ira Jensen PA 02/07/2025 9:50 AM EDT Routine [facility] [address] [place] [address] Ira Jensen PA Vaginal discharge; Second trimester ([facility]); 15 weeks gestation of ([facility]); Nausea and vomiting in ([facility]) 02/07/2025 External Result Encounter NOMS External Department Unsolicited Ira Jensen PA 02/07/2025 Bamboo flowsheet [facility] [address] [place] [address] Ira Jensen PA 01/30/2025 Abstract [facility] [address] [place] [address] Rodrigo Guzman, 01/30/2025 Abstract [facility] [address] [facility] [place] [address] Rodrigo Guzman, DO 01/27/2025 Abstract [facility] [address] [place] [address] Tatiana Harrell MA 01/19/2025 8:50 AM EDT Initial [facility] [address] [place] [address] Rodrigo Guzman, DO [place]: 12w3d 01/19/2025 Abstract [facility] [place] [facility] [address] [place] [address] Rodrigo Guzman, 01/19/2025 Abstract [facility] [address] [place] [address] Rodrigo Guzman, 01/19/2025 Clinisync Result Encounter NOMS External Department Unsolicited Carmita Will, LETITIA 01/19/2025 Bamboo flowsheet [facility] [place] [facility] [address] [facility] [place] [address] Rodrigo Guzman, 12/19/2024 10:15 AM EDT Ancillary Procedure [facility] [place] [facility] [address] [place] [address] Unable to hear heart tones as reason for ultrasound scan ([facility]); Maternal obesity, antepartum, first trimester ([facility]); Size of fetus inconsistent with dates in first trimester ([facility]) 12/19/2024 9:15 AM EDT Initial [facility] [place] [facility] [address] [place] [address] Ivan Fofana, [place]: 8w0d 12/19/2024 Travel 12/08/2024 Telephone [facility] [place] [facility] [address] [place] [address] Alanis Torres LPN 12/06/2024 Telephone [facility] [place] [facility] [address] [place] [address] Alanis Torres LPN Results 12/02/2024 11:00 AM EDT Initial [facility] [place] [facility] [address] [place] [address] [place]: 5w4d 12/02/2024 Travel 11/28/2024 Telephone [facility] [place] [facility] [address] [place] [address] Ivan Fofana, 11/17/2024 Orders Only [facility] [address] [facility] [place] [address] Katie Nguyen LPN from Last 3 Months Family History Medical [...] oz) 02/09/2025 2:48 P M EDT Height 160 cm (5' 3 ) 12/08/2022 2:02 PM EDT Body Mass Index 52.58 12/08/2022 2:02 PM EDT Plan of Treatment Upcoming Encounters Date Type Department Care Team (Late st Contact Info) Description 03/06/2025 10:00 AM EDT Routine [facility] [address] [facility] [place] [address] Rodrigo Guzman, [address] [place] [address] Health Maintenance Due Date Last Done Comments Influenza Vaccine (#1) 2025 0, 03/14/2019, 02/21/2014, Additional history exists Goals Goal Patient Goal Type Associated Problems Recent Progress Patient-Stated? Author Reminders Care Plan OB Reminders No Darlyn Gonzalez, inbound sales advisor Procedure Name Priority Date/Time Associated Diagnosis Comments POCT URINALYSIS DIPSTICK Routine 02/09/2025 2:55 PM EDT 15 weeks gestation of ([facility]) Second trimester ([facility]) RECURRENT VAGINITIS (HTRX) Routine 02/07/2025 11:58 AM EDT POCT URINALYSIS DIPSTICK Routine 02/07/2025 10:32 AM EDT Vaginal discharge MLR HEMOGLOBIN A1C Routine 01/19/2025 9: 59 AM EDT BOX TEST Routine 01/19/2025 9:59 AM EDT POCT URINALYSIS DIPSTICK Routine 01/19/2025 9:06 AM EDT First trimester ([facility]) CEPHEID CT/NG Routine 12/19/2024 3:21 PM EDT 13 weeks gestation of ([facility]) Screen for sexually transmitted diseases US OB TRANSVAGINAL Routine 12/19/2024 11 :03 AM EDT Unable to hear heart tones as reason for ultrasound scan ([facility]) Maternal obesity, antepartum, first trimester ([facility]) Size of fetus inconsistent with dates in first trimester ([facility]) POCT URINALYSIS 4 DIPSTICK Routine 12/19/2024 9:42 AM EDT 13 weeks gestation of ([facility]) IGP,RFX APT HPV ASCU,16/18,45 Routine 12/19/2024 12:00 AM EDT 13 weeks gestation of ([facility]) Screening for malignant neoplasm of cervix URINE CULTURE CLEAN CATCH REFLEX Routine 12/02/2024 12:26 PM EDT CANNABINOIDS, MS, UR RFX Routine 12/02/2024 12:26 PM EDT UR MICROSCOPIC REFLEX Routine 12/02/2024 12:26 PM EDT RPR (DX) W/REFL TITER AND CONFIRMATORY TESTING Routine 12/02/2024 12:26 PM EDT Encounter for supervision of normal first in first trimester ([facility]) HYPERCOAG PANEL INTERP Routine 12/02/2024 12:26 PM EDT Encounter for supervision of normal first in first trimester ([facility]) DRUG SCREEN 17 W/CONF, UR Routine 12/02/2024 12:26 PM EDT Encounter for drug screening HEPATITIS C ANTIBODY Routine 12/02/2024 12:26 PM EDT Encounter for supervision of normal first in first trimester ([facility]) CBC (INCLUDES DIFF/PLT) Routine 12/02/2024 12:26 PM EDT Encounter for supervision of normal first in first trimester ([facility]) BLOOD TYPE AND SCREEN Routine 12/02/2024 12:26 PM EDT Encounter for supervision of normal first in first trimester ([facility]) HEPATITIS B SURFACE ANTIGEN W/REFL CONFIRM Routine 12/02/2024 12:26 PM EDT Encounter for supervision of normal first in first trimester ([facility]) RUBELLA AB (IGG), IMMUNE STATUS Routine 12/02/2024 12:26 PM EDT Encounter for supervision of normal first in first trimester ([facility]) URINALYSIS, COMPLETE W/MICROSCOPY Routine 12/02/2024 12:26 PM EDT Encounter for supervision of normal first in first trimester ([facility]) CULTURE, URINE, ROUTINE Routine 12/02/2024 12:26 PM EDT Encounter for supervision of normal first in first trimester ([facility]) from Last 3 Months Results * POCT urinalysis dipstick manually resulted (02/09/2025 2:55 PM EDT) Only the most recent of3 resultswithin the time period is included. Color, UA Yellow Clarity, UA Clear Glucose, [...] TEST ENTER/EDIT OR DERABLES Final Result * RECURRENT VAGINITIS (HTRX) (02/07/2025 11:58 AM EDT) ATOPOBIUM VAGINAE 0 19.961 - 24.689 ppm 02/08/2025 7:10 AM EDT [facility] ATOPOBIUM VAGINAE Not Detected 19.961 - 24.689 ppm 02/08/2025 7:10 AM EDT [facility] BVAB 2,3 (BACTERIAL VAGINOSIS ASSOCIATED BACTERIA 2, 3); MOBILUNCUS SPP 0 19.961 - 24.689 ppm 02/08/2025 7:10 AM EDT [facility] BVAB 2,3 (BACTERIAL VAGINOSIS ASSOCIATED BACTERIA 2, 3); MOBILUNCUS SPP Not Detected 19.961 - 24.689 ppm 02/08/2025 7:10 AM EDT [facility] ASHUTOSH ALBICANS, PARAPSILOSIS, TROPICALIS 0 23.000 - 30.347 ppm 02/08/2025 7:10 AM EDT [facility] ASHUTOSH ALBICANS, PARAPSILOSIS, TROPICALIS Not Detected 23.000 - 30.347 ppm 02/08/2025 7:10 AM EDT [facility] ASHUTOSH GLABRATA 0 23.000 - 31.618 ppm 02/08/2025 7:10 AM EDT [facility] ASHUTOSH GLABRATA Not Detected 23.000 - 31.618 ppm 02/08/2025 7:10 AM EDT [facility] ASHUTOSH KRUSEI 0 23.000 - 30.873 ppm 02/08/2025 7:10 AM EDT [facility] ASHUTOSH KRUSEI Not Detected 23.000 - 30.873 ppm 02/08/2025 7:10 AM EDT [facility] CHLAMYDIA TRACHOMATIS 0 23.000 - 31.586 ppm 02/08/2025 7:10 AM EDT [facility] CHLAMYDIA TRACHOMATIS Not Detected 23.000 - 31.586 ppm 02/08/2025 7:10 AM EDT [facility] GARDNERELLA VAGINALIS 0 19.961 - 24.689 ppm 02/08/2025 7:10 AM EDT [facility] GARDNERELLA VAGINALIS Not Detected 19.961 - 24.689 ppm 02/08/2025 7:10 AM EDT [facility] MEGASPHAERA (TYPES 1, 2) 0 19.961 - 24.689 ppm 02/08/2025 7:10 AM EDT [facility] KIARARA (TYPES 1, 2) Not Detected 19.961 - 24.689 ppm 02/08/2025 7:10 AM EDT [facility] NEISSERIA GONORRHOEAE 0 23.000 - 32.587 ppm 02/08/2025 7:10 AM EDT [facility] NEISSERIA GONORRHOEAE Not Detected 23.000 - 32.587 ppm 02/08/2025 7:10 AM EDT [facility] TRICHOMONAS VAGINALIS 0 23.000 - 31.995 ppm 02/08/2025 7:10 AM EDT [facility] TRICHOMONAS VAGINALIS Not Detected 23.000 - 31.995 ppm 02/08/2025 7:10 AM EDT [facility] MYCOPLASMA GENITALIUM 0 19.961 - 24.689 ppm 02/08/2025 7:10 AM EDT [facility] MYCOPLASMA GENITALIUM Not Detected 19.961 - 24.689 ppm 02/08/2025 7:10 AM EDT [facility] Tissue 02/07/2025 11:5 8 AM EDT 02/08/2025 1:36 AM EDT us Ira ELMORE LAB BLOOD ORDERABLES Final Resul t [facility] [address] [address] * BOX TEST (01/19/2025 9:59 AM EDT) BOX TEST SENT OUT [facility] BOX1 unity [facility] BOX2 01/19/25 [facility] 01/19/2025 9:59 AM EDT 01/19/2025 10:03 AM EDT Narrative [facility] - 01/19/2025 10:04 AM EDT Carmita Will TOP SCREW LAB BLOOD ORDERABLES Final Re sult [facility] * MLR HEMOGLOBIN A1C (01/19/2025 9:59 AM EDT) GLYCOHEMOGLOBIN A1C 4.7 4.5 - 6.2 % [facility] Comment: ADA RECOMMENDED LIMIT 4.0 - 6.0 ADA THERAPEUTIC TARGET < 7.0 ACTION SUGGESTED > 7.0 ESTIMATED AVERAGE GLUCOSE 88 mg/dL TB 01/19/2025 9:59 AM EDT 01/19/2025 10:03 AM EDT Narrative [facility] - 01/19/2025 10:57 AM EDT Rodrigo Thomas DO [facility] Final Result Performing Organization Address [facility] Co de Phone Number [facility] * CEPHEID CT/NG (12/19/2024 3:21 PM EDT) SPECIMEN TYPE vaginal CHLAMYDIA CULTURE neg Negative GONORRHOEAE DNA(PCR) neg Negatvie Vaginal Fluid 12/19/2024 3:2 1 PM EDT Ivan Fofana DO POINT OF CARE TEST [...] were not included. Obstetrics & Gynecology [address], [address] [place] [address] [place] [address] - - - - - - - [...] THIS SPECIMEN WAS RESCREENED PART OF OUR AUTO INSPECTOR PROGRAM. Specimen Adequacy: Comment [facility] Comment: Satisfactory [...] 12/21/2024 5:07 PM EDT [facility]formed at: [facility] [employer] [address] [place] [id number] Retail Assistant Store Manager: Demetri Anders MD, Phone: [phone] Performed at: - [address] [id number] Retail Assistant Store Manager: Allison Miller MD, Phone: [phone] Specimen Comment: [id number] Specimen Comment: No. of containers..01 ThinPrep Vial us Ivan Fofana DO LAB BLOOD ORDERABLES Final Re sult [facility] * (ABNORMAL) CANNABINOIDS, MS, UR RFX (12/02/2024 12:26 PM EDT) CANNABINOIDS ++POSITIV E++(A) [facility] CARBOXY-THC 114 ng/mg creat [facility] Comment: This test is not intended to distinguish between the metabolites of wpeon-9-bztjmfsjshslrwfcpkit, the predominant form of THC in most herbal or marijuana-based products, and adhjw-2-esvlytwlicitajwgoxnq, a psychoactive compound generally synthesized from other cannabinoids. 12/02/2024 12:2 6 PM EDT 12/02/2024 Narrative [facility] - 12/06/2024 6:06 AM EDT Performed at: 01 - [employer] [address] [place] [address] [id number] Retail Assistant Store Manager: Bianca Chan [facility], Phone: [phone] us Ivan Foley Visci DO LAB URINE ORDERABLES Final Re sult [facility] * DRUG SCREEN 17 W/CONF, UR (12/02/2024 12:26 PM EDT) [facility] CREATININE 81 >=20 mg/dL [facility] Comment:REFERENCE RANGE: [...] [facility] - 12/06/2024 6:06 AM EDT Test(s) 489013-TPMMBIS BI[place]ARK[place]; 928777-IMAZELZX IA; 528068- TAPENTADOL IA was developed and its performance characteristics determined by [facility]. It has not been cleared or approved by the Food and Drug Administration. Performed at: 01 - [employer] [address] [place] [address] [id number] Retail Assistant Store Manager: Bianca Chan [facility], Phone: [phone] us Ivan Fofana DO LAB BLOOD ORDERABLES Final Re sult Performing Organization Address [facility]/ZIP Co de Phone Number [facility] * Urine Culture Clean Catch Reflex (12/02/2024 12:26 PM EDT) Pathologist [facility] Ur Cult 1 Comment [facility] Comment: Culture shows less than 10,000 colony forming units of bacteria per milliliter of urine. This colony count is not generally considered to be clinically significant. 12/02/2024 12:2 6 PM EDT 12/02/2024 Narrative [facility] - 12/06/2024 6:06 AM EDT Performed at: - [address] [id number] Retail Assistant Store Manager: French Chaudhari PhD, Phone: [phone] us Ivan Fofana DO LAB URINE ORDERABLES Final Re sult Performing Organization Address [facility] Co de Phone Number [facility] * Ur Microscopic Reflex (12/02/2024 12:26 PM EDT) WBC Ur None seen 0 - 5 /hpf [facility] RBC Ur None seen 0 - 2 /hpf [facility] Epithelial Cells (non renal) Ur 0-10 0 - 10 /hpf [facility] Casts Ur None seen None seen /lpf [facility] Bacteria Ur None seen None seen/Few [facility] 12/02/2024 12:2 6 PM EDT 12/02/2024 Narrative [facility] - 12/06/2024 6:06 AM EDT Performed at: - [address] [id number] Retail Assistant Store Manager: French Chaudhari PhD, Phone: [phone] us Ivan Fofana DO LAB URINE ORDERABLES Final Re sult [facility] * Rpr (dx) w/refl titer and [...] - 12/06/2024 6:06 AM EDT Performed at: [address] [place] [address] [id number] Retail Assistant Store Manager: French Chaudhari PhD, Phone: [phone] Ivan Barnesi DO LAB BLOOD ORDERABLES Final Re sult Performing Organization Address [facility] Co de Phone Number [facility] * Hepatitis C antibody (12/02/2024 12:26 PM EDT) Pathologist [facility] Hep C Virus Ab Non Reactive Non [...] - 12/06/2024 6:06 AM EDT Performed at: [address] [id number] Retail Assistant Store Manager: French Chaudhari PhD, Phone: [phone] Ivan Fofana DO LAB BLOOD ORDERABLES Final Re sult Performing Organization Address [facility] de Phone Number [facility] * HIV-2 antigen (12/02/2024 12:26 PM EDT) [facility] HIV Scr 4th Gen Non Reactive Non Reactive [facility] Comment: HIV-1/HIV-2 antibodies and HIV-1 p24 antigen were NOT detected. There is no laboratory evidence of HIV infection. HIV Negative Blood Venous blood specimen / Unknown 12/02/2024 12:26 PM EDT 12/02/2024 Narrative [facility] - 12/06/2024 6:06 AM EDT Performed at: [address] [place] [address] [id number] Retail Assistant Store Manager: French Chaudhari PhD, Phone: [phone] us Ivan A Visci DO LAB BLOOD ORDERABLES Final Re sult Performing Organization Address [facility] de Phone Number [facility] * Rubella antibody, IgG (12/02/2024 12:26 PM EDT) [facility] Rubella IgG Abs 9.35 Immune >0.99 index [facility] Comment: Non-immune <0.90 Equivocal 0.90 - 0.99 Immune >0.99 Blood Venous blood specimen / Unknown 12/02/2024 12:26 PM EDT 12/02/2024 Narrative [facility] - 12/06/2024 6:06 AM EDT Performed at: [address] [place] [address] [id number] Retail Assistant Store Manager: French Chaudhari PhD, Phone: [phone] Ivan Fofana DO LAB BLOOD ORDERABLES Final Re sult Performing Organization Address [facility] de Phone Number [facility] * Hepatitis B surface antigen (12/02/2024 12:26 PM EDT) [facility] Hep B Surf Ag Scr Negative Negative [facility] Blood Venous blood specimen / Unknown 12/02/2024 12:26 PM EDT 12/02/2024 Narrative [facility] - 12/06/2024 6:06 AM EDT Performed at: [address] [place] [address] [id number] Retail Assistant Store Manager: French Chaudhari PhD, Phone: [phone] Ivan Fofana DO LAB BLOOD ORDERABLES Final Re sult Performing Organization Address [facility] de Phone Number [facility] * (ABNORMAL) Urinalysis with microscopic (12/02/2024 12:26 PM EDT) [facility] Specific [place] Urine 1.015 1.005 - 1.030 [facility] pH [...] 6:06 AM EDT Performed at: 02 - [address] [id number] Retail Assistant Store Manager: French Chaudhari PhD, Phone: [phone] us Ivan Fofana DO LAB URINE ORDERABLES Final Re sult [facility] * CBC and differential (12/02/2024 12:26 PM EDT) WBC 9.5 3.4 - 10.8 x10E3/uL [facility] [...] - 12/06/2024 6:06 AM EDT Performed at: [address] [id number] Retail Assistant Store Manager: French Chaudhari PhD, Phone: [phone] us Ivan Fofana DO LAB BLOOD ORDERABLES Final Re sult Performing Organization Address [facility] de Phone Number [facility] * Type and screen (12/02/2024 12:26 PM EDT) ABO Grouping B [facility] Rh Factor Positive [facility] Comment: Please note: Prior records for this patient's ABO / Rh type are not available for additional verification. Antibody Screen Negative Negative [facility] Blood Venous blood specimen / Unknown 12/02/2024 12:26 PM EDT 12/02/2024 Narrative [facility] - 12/06/2024 6:06 AM EDT Performed at: [address] [id number] Retail Assistant Store Manager: French Chaudhari PhD, Phone: [phone] us Ivan Fofana DO LAB BLOOD ORDERABLES Final Re sult Performing Organization Address [facility] de Phone Number [facility] * Urine culture (12/02/2024 12:26 PM EDT) Urine Cult Rt Status Final report [facility] Urine Urine specimen obtained by clean catch procedure / Unknown 12/02/2024 12:26 PM EDT 12/02/2024 Comment:UR Narrative [facility] - 12/06/2024 6:06 AM EDT Performed at: 02 - [facility] [address] [id number] Retail Assistant Store Manager: French Chaudhari PhD, Phone: [phone] us Ivan Fofana DO LAB MICROBIOLOGY - GENERAL OR DERABLES Final Result [facility] from Last 3 Months Additional Health Concerns Active Problems Noted Date Diagnosed Date OB Reminders 12/02/2024 Insurance DANIEL BCBS [place]ICA[place] Care Teams Automotive Service Management Teacher Relationship Specialty Start Date End Date Karly Baca PCP - [facility] Daniel COIN MACHINE COLLECTOR SUPERVISOR 11/23/23
--- OUTSIDE RECORDS SUMMARY | 2025-02-15 17:34 | XMS_ITS | Encounter Summary ---
Author Organization [facility] Address [address] [place] [address] Care Team Providers Care Manufacturing Associate Name Role Phone Maria R Disla SKEINS YARN EXAMINER Unavailable [phone] Source Comments In the event this information is protected by the Federal Confidentiality of Alcohol and Drug AbusePatient Records regulations: The Federal rules restrict any use of the information to criminally investigate or prosecute any alcohol or drug abuse patient.[facility] Encounter Details Date Type Department Care Team (Late st Contact Info) Description 02/08/2023 Patient Msg Neurology [address] [place], [place] [id number] Provider, [facility] CONFIRM Social History Tobacco Use [...] is lower risk 6 01/19/2023 Data from: https://www.neighborhoodatlas.medicine.[facility].edu/. Last address used for calculation [address] [facility] 01/19/2023 Comments No Sex and Gender [...] on filedocumented in this encounter Care Teams Manufacturing Associate Relationship Specialty Start Date End Date Maria R Disla CNP [address] [place] [address] Referring Family Medicine 01/07/23 documented as of this encounter
--- OUTSIDE RECORDS SUMMARY | 2025-02-15 17:34 | XMS_ITS | Encounter Summary ---
Author Organization [facility] Address [address] [place] [address] Care Team Providers Care Director Business Systems Name Role Phone Maria R Disla LITHOGRAPHIC STRIPPER Unavailable [phone] Source Comments In the event this information is protected by the Federal Confidentiality of Alcohol and Drug AbusePatient Records regulations: The Federal rules restrict any use of the information to criminally investigate or prosecute any alcohol or drug abuse patient.[facility] Encounter Details Date Type Department Care Team (Late st Contact Info) Description 03/02/2023 GI Preprocedure Call Ambulatory Surgery [address] [place] [address] Shelly Parsons DO [address] [facility] [address] [place] [address] Social History Tobacco Use Types [...] is lower risk 6 01/19/2023 Data from: https://www.neighborhoodatlas.medicine.[facility].edu/. Last address used for calculation [address] [...] on filedocumented in this encounter Care Teams Director Business Systems Relationship Specialty Start Date End Date Maria R Disla CNP [address] [place], [place] [address] [address] Referring Family Medicine 01/07/23 documented as of this encounter
--- OUTSIDE RECORDS SUMMARY | 2025-02-15 17:34 | XMS_ITS | Encounter Summary ---
Author Organization [facility] Address [address] [place] [address] Care Team Providers Care Stockfeed Miller Name Role Phone Mega Davenport MD Unavailable [phone] Karly Baca Unavailable Unavailable Encounter Details Date Type Department Care Team (Late Contact Info) Description 12/05/2022 Abstract [facility] [address] [facility] [place] [address] Ira Jensen PA [address] [facility] [address] [place], [facility]11 Social History Tobacco Use Types [...] Info) Description 03/06/2025 10:00 AM EDT Routine [facility] [address] [facility] [address] Rodrigo Guzman DO [address] [facility] [address] [place], [facility]11 documented as of this encounter Visit Diagnoses Not on filedocumented in this encounter Care Teams Stockfeed Miller Relationship Specialty Start Date End Date Mega Davenport MD [address] [facility] [address] [place] [address] PCP - [facility] Bluejacket AIRPLANE TECHNICIAN 08/24/23 11/22/23 Karly Baca PCP - [facility] [employer] AIRPLANE TECHNICIAN 11/23/23 documented as of this encounter
--- OUTSIDE RECORDS SUMMARY | 2025-02-15 17:34 | XMS_ITS | Encounter Summary ---
Author Organization [facility] Address [address] [place] [address] Care Team Providers Care Professor Of Marketing Name Role Phone Karly Baca Unavailable Unavailable Encounter Details Date Type Department Care Team (Late Contact Info) Description 01/27/2025 Abstract JACQUELINE ESTEBAN [address] [facility] [place] [phone] Tatiana Harrell MA Social History Tobacco Use Types Packs/Day Years [...] Info) Description 03/06/2025 10:00 AM EDT Routine JACQUELINE ESTEBAN [address] [facility] [place] [phone] Rodrigo Guzman DO [address] [facility] [address] [place], [place] [id number] documented as of this encounter Goals Goal Patient Goal Type Associated Problems Recent Progress Patient-Stated? Author Reminders Care Plan OB Reminders No Darlyn Gonzalez RN documented as of this encounter Visit Diagnoses Not on filedocumented in this encounter Additional Health Concerns Active Problems Noted Date Diagnosed Date OB Reminders 12/02/2024 documented as of this encounter Care Teams Professor Of Marketing Relationship Specialty Start Date End Date Karly Baca PCP - [facility] FISHING VESSEL CAPTAIN 11/23/23 documented as of this encounter
--- OUTSIDE RECORDS SUMMARY | 2025-02-15 17:34 | XMS_ITS | Encounter Summary ---
Author Organization [facility] Address [address] [place] [address] Care Team Providers Care Call Specialist Name Role Phone Karly Baca Unavailable Unavailable Encounter Details Date Type Department Care Team (Late Contact Info) Description 02/07/2025 External Result Encounter [facility] External Department Unsolicited Ira Jensen PA [address] [facility] [address] [place], [place] [id number] Social History Tobacco Use Types Packs/Day Years [...] AM EDT Routine [facility] [address] [facility] [place] [phone] Rodrigo Guzman DO [address] [facility] [address] [place], [place] [id number] documented as of this encounter Goals Goal Patient Goal Type Associated Problems Recent Progress Patient-Stated? Author Reminders Care Plan OB Reminders No Darlyn Gonzalez, RN documented as of this encounter Procedures Procedure Name Priority Date/Time Associated Diagnosis Comments RECURRENT VAGINITIS (HTRX) Routine 02/07/2025 11:58 AM EDT documented in this encounter Results * RECURRENT VAGINITIS (HTRX) (02/07/2025 11:58 AM EDT) [facility] ATOPOBIUM VAGINAE 0 19.961 - 24.689 ppm 02/08/2025 7:10 AM EDT [facility] ATOPOBIUM VAGINAE Not Detected 19.961 - 24.689 ppm 02/08/2025 7:10 AM EDT [facility] BVAB 2,3 (BACTERIAL VAGINOSIS ASSOCIATED BACTERIA 2, 3); MOBILUNCUS SPP 0 19.961 - 24.689 ppm 02/08/2025 7:10 AM EDT [facility] BVAB 2,3 (BACTERIAL VAGINOSIS ASSOCIATED BACTERIA 2, 3); MOBILUNCUS SPP Not Detected 19.961 - 24.689 ppm 02/08/2025 7:10 AM EDT [facility] ASHUTOSH ALBICANS, PARAPSILOSIS, TROPICALIS 0 23.000 - 30.347 ppm 02/08/2025 7:10 AM EDT [facility] ASHUTOSH ALBICANS, PARAPSILOSIS, TROPICALIS Not Detected 23.000 - 30.347 ppm 02/08/2025 7:10 AM EDT [facility] ASHUTOSH GLABRATA 0 23.000 - 31.618 ppm 02/08/2025 7:10 AM EDT [facility] ASHUTOSH GLABRATA Not Detected 23.000 - 31.618 ppm 02/08/2025 7:10 AM EDT [facility] ASHUTOSH KRUSEI 0 23.000 - 30.873 ppm 02/08/2025 7:10 AM EDT [facility] ASHUTOSH KRUSEI Not Detected 23.000 - 30.873 ppm 02/08/2025 7:10 AM EDT [facility] CHLAMYDIA TRACHOMATIS 0 23.000 - 31.586 ppm 02/08/2025 7:10 AM EDT [facility] CHLAMYDIA TRACHOMATIS Not Detected 23.000 - 31.586 ppm 02/08/2025 7:10 AM EDT [facility] GARDNERELLA VAGINALIS 0 19.961 - 24.689 ppm 02/08/2025 7:10 AM EDT [facility] GARDNERELLA VAGINALIS Not Detected 19.961 - 24.689 ppm 02/08/2025 7:10 AM EDT [facility] MEGASPHAERA (TYPES 1, 2) 0 19.961 - 24.689 ppm 02/08/2025 7:10 AM EDT [facility] MEGASPHAERA (TYPES 1, 2) Not Detected 19.961 - 24.689 ppm 02/08/2025 7:10 AM EDT [facility] NEISSERIA GONORRHOEAE 0 23.000 - 32.587 ppm 02/08/2025 7:10 AM EDT [facility] NEISSERIA GONORRHOEAE Not Detected 23.000 - 32.587 ppm 02/08/2025 7:10 AM EDT [facility] TRICHOMONAS VAGINALIS 0 23.000 - 31.995 ppm 02/08/2025 7:10 AM EDT [facility] TRICHOMONAS VAGINALIS Not Detected 23.000 - 31.995 ppm 02/08/2025 7:10 AM EDT [facility] MYCOPLASMA GENITALIUM 0 19.961 - 24.689 ppm 02/08/2025 7:10 AM EDT [facility] MYCOPLASMA GENITALIUM Not Detected 19.961 - 24.689 ppm 02/08/2025 7:10 AM EDT [facility] Tissue 02/07/2025 11:5 8 AM EDT 02/08/2025 1:36 AM EDT us Ira ELMORE LAB BLOOD ORDERABLES Final Resul t [facility] [address] [place] [address] documented in this encounter Visit Diagnoses Not on filedocumented in this encounter Additional Health Concerns Active Problems Noted Date Diagnosed Date OB Reminders 12/02/2024 documented as of this encounter Care Teams Call Specialist Relationship Specialty Start Date End Date Karly Baca PCP - [facility] CONDENSER WINDER 11/23/23 documented as of this encounter
--- OUTSIDE RECORDS SUMMARY | 2025-02-15 17:34 | XMS_ITS | Clinical Summary ---
Author Organization [facility] Address [id number] [address] [place] [address] Care Team Providers Care Artificial Log Machine Operator Name Role Phone Pcp, Not In System [...] file Medical Devices Not on file Insurance [facility] MEDICAID Care Teams Artificial Log Machine Operator Relationship Specialty Start Date End Date Pcp, Not In System OL[place] Catherine [address] PCP - General Family Medicine 11/12/17
--- OUTSIDE RECORDS SUMMARY | 2025-02-15 17:34 | XMS_ITS | Encounter Summary ---
Author Organization [facility] Address [address] [place] [address] Care Team Providers Care Granite Cutter Name Role Phone Karly Baca Unavailable Unavailable Encounter Details Date Type Department Care Team (Late Contact Info) Description 01/30/2025 Abstract [facility] [address] [facility] [place] [address] Rodrigo Guzman DO [address] [place], [facility]11 Social History Tobacco Use Types [...] Routine [facility] Crystal [facility]AN [address] [place] [address] Rodrigo Guzman DO [address] [place], [place] [phone] documented as of this encounter Goals Goal Patient Goal Type Associated Problems Recent Progress Patient-Stated? Author Reminders Care Plan OB Reminders No Darlyn Gonzalez RN documented as of this encounter Visit Diagnoses Not on filedocumented in this encounter Additional Health Concerns Active Problems Noted Date Diagnosed Date OB Reminders 12/02/2024 documented as of this encounter Care Teams Granite Cutter Relationship Specialty Start Date End Date Karly Baca PCP - [facility] Daniel GUM MIXER 11/23/23 documented as of this encounter
--- OUTSIDE RECORDS SUMMARY | 2025-02-15 17:34 | XMS_ITS | Encounter Summary ---
Author Organization [facility] Address [address] [place] [address] Care Team Providers Care Speech Language Specialist Name Role Phone Maria R Disla CLINICAL QUALITY ASSURANCE SPECIALIST Unavailable [phone] Source Comments In the event this information is protected by the Federal Confidentiality of Alcohol and Drug AbusePatient Records regulations: The Federal rules restrict any use of the information to criminally investigate or prosecute any alcohol or drug abuse patient.[facility] Encounter Details Date Type Department Care Team (Late st Contact Info) Description 02/09/2023 Patient Msg Neurology [address] [place], [place] [id number] Provider, [facility] CONFIRM Social History Tobacco Use [...] is lower risk 6 01/19/2023 Data from: https://www.neighborhoodatlas.medicine.[facility].edu/. Last address used for calculation [address] [facility] 01/19/2023 Comments No Sex and Gender [...] on filedocumented in this encounter Care Teams Speech Language Specialist Relationship Specialty Start Date End Date Maria R Disla CNP [address] [place] [address] Referring Family Medicine 01/07/23 documented as of this encounter
--- OUTSIDE RECORDS SUMMARY | 2025-02-15 17:34 | XMS_ITS | Clinical Summary ---
Author Organization [facility] Address [address] [place] [address], [address] [place] [address] Care Team Providers Care Electric Plater Name Role Phone Unavailable Primary Care Provider [...]
--- OUTSIDE RECORDS SUMMARY | 2025-02-15 17:34 | XMS_ITS | Encounter Summary ---
Author Organization [facility] Address [address] [place] [address] Care Team Providers Care Patent Lawyer Name Role Phone Karly Baca Unavailable Unavailable Encounter Details Date Type Department Care Team (Late st Contact Info) Description 11/17/2024 Orders Only [facility] [address] [place] [address] Katie Nguyen LPN 102 [facility] Patricia [facility]11 Social History Tobacco Use Types Packs/Day [...] AM EDT Routine [facility] Crystal [facility] [address] [place] [phone] Rodrigo Guzman DO [address] [facility] [address] [place], [place] [id number] documented as of this encounter Procedures Procedure [...] on filedocumented in this encounter Care Teams Patent Lawyer Relationship Specialty Start Date End Date Karly Baca PCP - [facility] Daniel RETAIL STORE MANAGER 11/23/23 documented as of this encounter
--- OUTSIDE RECORDS SUMMARY | 2025-02-15 17:35 | XMS_ITS | Encounter Summary ---
Author Organization [facility] Address [address] [place] [address] Care Team Providers Care Gameplay Programmer Name Role Phone Karly Baca Unavailable Unavailable Encounter Details Date Type Department Care Team (Late Contact Info) Description 01/19/2025 Abstract [facility] [address] [facility] [place] [place] [address] Rodrigo Guzman DO [address] [place], [facility] [...] Routine [facility] Crystal ESTEBAN [address] [place] [address] Rodrigo Guzman DO [address] [place], [place] [id number] documented as of this encounter Goals Goal Patient Goal Type Associated Problems Recent Progress Patient-Stated? Author Reminders Care Plan OB Reminders No Darlyn Gonzalez RN documented as of this encounter Visit Diagnoses Not on filedocumented in this encounter Additional Health Concerns Active Problems Noted Date Diagnosed Date OB Reminders 12/02/2024 documented as of this encounter Care Teams Gameplay Programmer Relationship Specialty Start Date End Date Karly Baca PCP - [facility] Daniel FIREARMS INSTRUCTOR 11/23/23 documented as of this encounter
--- OUTSIDE RECORDS SUMMARY | 2025-02-15 17:35 | XMS_ITS | Encounter Summary ---
Author Organization [facility] Address [address] [place] [address] Care Team Providers Care Utility Supervisor Boat And Plant Name Role Phone Karly Baca Unavailable Unavailable Encounter Details Date Type Department Care Team (Late Contact Info) Description 01/19/2025 Abstract [facility] [address] [facility] [place] [address] Rodrigo Guzman DO [address] [place], [facility]11 Social History Tobacco Use Types Packs/Day Years [...] Routine [facility] EST[facility] [address] [place] [address] Rodrigo Guzman DO [address] [place] [place], [place] [id number] documented as of this encounter Goals Goal Patient Goal Type Associated Problems Recent Progress Patient-Stated? Author Reminders Care Plan OB Reminders No Darlyn Gonzalez RN documented as of this encounter Visit Diagnoses Not on filedocumented in this encounter Additional Health Concerns Active Problems Noted Date Diagnosed Date OB Reminders 12/02/2024 documented as of this encounter Care Teams Utility Supervisor Boat And Plant Relationship Specialty Start Date End Date Karly Baca PCP - [facility] Daniel 1ST GRADE TEACHER 11/23/23 documented as of this encounter
--- OUTSIDE RECORDS SUMMARY | 2025-02-15 17:35 | XMS_ITS | Clinical Summary ---
Author Organization [facility] Address [address] [place] [id number] Care Team Providers Care Station Repairer Name Role Phone Maria R Disla MANAGER MENTAL HEALTH Unavailable [phone] Allergies No known active allergies Medications ARIPiprazole [...] 01/19/2023 Depression 01/19/2023 ADHD 01/19/2023 Asthma 01/19/2023 Immunizations Immunization Administration Dates Next Due Haemophilus [...] is lower risk 6 01/19/2023 Data from: https://www.neighborhoodatlas.[facility]/. Last address used for calculation [address] [...] To Adult Transition Nuria ual Assessment 2015 Annual PCP Team Chronic Dise ase Visit 2019 HIV Screening 2019 Hepatitis C Screening 2019 Cervical Cancer Screening 2022 Influenza Vaccine (#1) 2025 0, 03/14/2019, 02/21/2014, Additional history exists DTaP,Tdap,Td Vaccine (8 - Td or Tdap) 07/07/2032 07/07/2022, 07/07/2013, 01/16/2005, Additional history exists Hepatitis B Vaccine Completed 2001, 2001, 2001 HPV Vaccine Completed 03/16/2013, 09/22, 07/03/2011 Insurance [employer] MEDICAID OF [place] Care Teams Station Repairer Relationship Specialty Start Date End Date Maria R Disla CNP [facility] [place] [address] Referring Family Medicine 01/07/23
--- OUTSIDE RECORDS SUMMARY | 2025-02-15 17:35 | XMS_ITS | Patient Health Record ---
[facility] Organization [facility] Address [address] [place] [address] Care Team Providers Care Line Driver Name Role Phone Maria R Glynn Primary Care Provider Dr. Burt Jarrett Unavailable [phone] Ignacia Ellington Unavailable Unavailable Veronique Wilson Unavailable [phone] Cinda Cordon Unavailable Jeff Beltre Unavailable [phone] Maria R Romero Unavailable [phone] Allergies No Known Allergies Results Component Value Reference Range Notes FSH and LH Reviewed date:03/27/2024 03:14:29 PM Interpretation: Performing Lab: Notes/Report: [facility] [address] [place] [address] Original Ordering Provider: GOPI OCHOA FOLLITROPIN 7.7 Adult Female Range Follicular phase 3.5 - 12.5 Ovulation phase 4.7 - 21.5 Luteal phase 1.7 - 7.7 Postmenopausal 25.8 - 134.8 Performed at: [facility] [address] [id number] PhD Fara DE LUNA 8.6 Adult Female Range Follicular phase 2.4 - 12.6 Ovulation phase 14.0 - 95.6 Luteal phase 1.0 - 11.4 Postmenopausal 7.7 - 58.5 Performing Lab see note UNK - [facility] unless otherwise specified [address] [place], [place] [address] HgbA1c Reviewed date:03/27/2024 03:15:34 PM Interpretation: Performing Lab: Notes/Report: [facility] [address] [place] [address] Original Ordering Provider: GOPI OCHOA HEMOGLOBIN A1C/HEMOGLOBIN.TOTAL 5.1 <=5.9 % Performing Lab see note [facility] unless otherwise specified [address] [place] [address] Insulin Lvl Reviewed date:03/27/2024 03:15:07 PM Interpretation: Performing Lab: Notes/Report: [facility] [address] [place] [address] Original Ordering Provider: GOPI COHOA INSULIN 9.4 2.6-24.9 mcIU/mL Performed at: [facility] [id number] PhD Fara Braswell Performing Lab see note [facility] unless otherwise specified [address] [place] [address] Lipid Panel Reviewed date:03/27/2024 03:14:37 PM Interpretation: Performing Lab: Notes/Report: [facility] [address] [place] [address] Original Ordering Provider: GOPI OCHOA CHOLESTEROL 153 120-200 mg/dL CHOLESTEROL.IN HDL 45 '>= 60 LOW RISK' '<= 40 HIGH RISK' CHOLESTEROL.IN LDL 102 <=129 mg/dL TRIGLYCERIDE 129 <=149 mg/dL CHOLESTEROL.IN VLDL 26 7-40 mg/dL Performing Lab see note [facility] unless otherwise specified [address] [place] [address] RF Quant Reviewed date:03/27/2024 03:15:26 PM Interpretation: Performing Lab: Notes/Report: [facility] [address] [place] [address] Original Ordering Provider: GOPI OCHOA RHEUMATOID FACTOR <10.0 <14.0 International_Unit/mL Performed at: [facility] [id number] PhD Fara Braswell Performing Lab see note [facility] unless otherwise specified [address] [place] [address] T3 Total Reviewed date:03/27/2024 03:15:17 PM Interpretation: Performing Lab: Notes/Report: [facility] [address] [place] [address] Original Ordering Provider: GOPI OCHOA TRIIODOTHYRONINE 131 71-180 ng/dL Performed at: [place] [place] [id number] [place], [place] [id number] PhD Fara Braswell Performing Lab see note [facility] unless otherwise specified [address] [place] [address] T4 & TSH Reviewed date:03/27/2024 03:17:20 PM Interpretation: Performing Lab: Notes/Report: [facility] [address] [place] [address] Original Ordering Provider: GOPI OCHOA THYROXINE 9.5 4.6-9.1 microgram/dL THYROTROPIN 2.00 0.34-5.60 mcIU/mL Performing Lab see note [facility] unless otherwise specified [address] [place], [place] [id number] Cortisol Reviewed date:03/27/2024 03:14:20 PM Interpretation: Performing Lab: Notes/Report: [facility] [address] [place] [address] Original Ordering Provider: GOPI OCHOA CORTISOL 15.2 6.2-19.4 microgram/dL Please Note: The reference interval and flagging for this test is for an AM collection. If this is a PM collection please use: Cortisol PM: 2.3-11.9 Performed at: [facility] [address] [place], [place] [id number] PhD Fara Braswell Performing Lab see note [facility] unless otherwise specified [address] [place] [address] HAILEE w/Reflex if POS Reviewed date:03/27/2024 03:13:55 PM Interpretation: Performing Lab: Notes/Report: [facility] [address] [id number] Original Ordering Provider: GOPI OCHOA NUCLEAR AB Negative Negative Performed at: [facility] [address] [id number] PhD Fara Braswell Performing Lab see note [facility] unless otherwise specified [address] [address] eGFR Reviewed date:03/27/2024 03:14:04 PM Interpretation: Performing Lab: Notes/Report: [facility] [address] [id number] Original Ordering Provider: GOPI OCHOA eGFR 124 >=59 mL/min/1.73 m2 Performing Lab see note [facility] unless otherwise specified [address] [address] CMP Reviewed date:03/27/2024 03:14:46 PM Interpretation: Performing Lab: Notes/Report: [facility] [address] [id number] Original Ordering Provider: GOPI OCHOA GLUCOSE 89 55-199 mg/dL UREA NITROGEN 10 [...] ALBUMIN/GLOBULIN 1.4 1.1-2.[address] see note [facility] unless otherwise specified [address] [place] [address] Reason For Referral Reason 03/30 attempted to r each pt. lvmsg requesting return call. referring for talk therapy with Maria R Romero. 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 Stress is when someone feels tense, nervous, anxious, or cant sleep at night because their mind is troubled A little bit In the past year have you sp ent more than 2 nights in a row in a fci, fpc, snf center, or juvenile correctional facility? No Are [...] W/U Status Risk Notes Problem Tobacco user (841267078) Nicotine dependence, unspecified, uncomplicated (F17.200) Active confirmed Problem Insomnia (733938085) Other insomnia (G47.09) Active confirmed Problem Morbid obesity (587487606) Morbid obesity (E66.01) Active confirmed Problem Chronic pain (66841011) Other chronic pain (G89.29) Active confirmed Problem Chronic fatigue syndrome (64522307) Chronic fatigue (R53.82) Active confirmed Problem Posttraumatic stress disorder (55477757) PTSD (post-traumatic stress disorder) (F43.10) Active confirmed Problem Panic disorder (058684255) Panic attacks (F41.0) Active confirmed Problem Acute stress disorder (06751719) Acute stress disorder (F43.0) Active confirmed Problem Carpal tunnel syndrome (30789315) Right carpal tunnel syndrome (G56.01) Active confirmed Problem Attention deficit hyperactivity disorder, 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 [address] [place] [address] 03/23/[address] [facility] [address] [place] [address] 03/27/[address] [facility] [address] [place] [address] 04/12/2024 Maria R Glynn Morbid obesity E66.01 and PILO (generalized anxiety disorder) F41.1 [facility] [address] [place] [address] 04/25/2024 Maria R Glynn [facility] [address] [place] [address] 07/05/2024 Maria R Glynn Morbid obesity E66.01 and PILO (generalized anxiety disorder) F41.1 [place] [address] [place] [address] 07/13/2024 Maria R Glynn [place] [address] [place] [address] 07/15/2024 Maria R Glynn [address] [place] [address] 10/07/2024 Maria R Glynn PILO (generalized anxiety disorder) F41.1 [facility] [address] [place] [address] 11/09/[address] [facility] [address] [place] [address] 01/12/2025 Maria R Romero [address] [place] [address] 03/22/2024 Maria R Glynn Chronic fatigue R53.82 ; PILO (generalized anxiety disorder) F41.1 ; Nicotine dependence, unspecified, uncomplicated F17.200 ; Pain in right hip M25.551 ; Pain in right knee M25.561 ; Pain in left knee M25.562 ; Other chronic pain G89.29 ; Pain in left hip M25.552 and PTSD (post-traumatic stress disorder) F43.[address] [place] [address] 04/12/2024 Maria R Glynn PILO (generalized anxiety disorder) F41.1 ; PTSD (post-traumatic stress disorder) F43.10 and Morbid obesity E66.[address] [place] [address] 09/09/2024 Maria R Glynn PILO (generalized anxiety disorder) F41.1 ; Acute stress disorder F43.0 ; PTSD (post-traumatic stress disorder) F43.10 and Morbid obesity E66.01 [place] [address] [place] [address] 07/21/2024 Jeff Beltre Nexplanon removal Z30.46 [facility] [place] [address] 04/29/2024 Maria R Romero PTSD (post-traumatic stress disorder) F43.10 [facility] [address] [place] [address] 10/03/2024 Maria R Romero PTSD (post-traumatic stress disorder) F43.10 [facility] [address] [place] [address] 10/12/2024 Burt Jarrett Encounter for dental examination and cleaning with abnormal findings Z01.21 ; Other dental procedure status Z98.818 ; Disturbances in tooth eruption K00.6 ; Acute gingivitis, plaque induced K05.00 and Dental caries on pit and fissure surface penetrating into dentin K02.52 [facility] [address] [address] 10/31/2024 Veronique Wilson PILO (generalized anxiety disorder) [...] patient crisis plan. Provided crisis hotline number. [facility] has good support system. Made aware [...] Provider Name:Kelly Saul , 06/07/2025 08:00:00 AM, [address], [place], [address], Insurance Providers Payer Name Payer Address Payer Phone Subscriber Number Group Number Insured Name Patient Relationship to Insured Coverage Start Date Coverage End Date [facility] [address] [place] [address] [id number] SAROJ MEMBRENO Self - patient is the insured 5 [facility] [address] [place] [address] [id number] SAROJ MEMBRENO Self - patient is the insured 5 [employer] [place] Medicaid [address] [place] [address] [id number] SAROJ MEMBRENO Self - patient is the insured 3 4 [facility] [address] [place] [address] [id number] SAROJ MEMBRENO Self - patient is the insured 3 4 [facility] [address] [place] [address] [id number] SAROJ MEMBRENO Self - patient is the insured 4 4 [facility] [address] [place] [address] [id number] SAROJ MEMBRENO Self - patient is the insured 4 4 [employer] [place] Medicaid [address] [place] [address] [id number] SAROJ MEMBRENO Self - patient is the insured 5 [facility] [address] [place] [address] [id number] SAROJ MEMBRENO Self - patient is the insured 5 [employer] [address] [address] [place] [address] [id number] SAROJ MEMBRENO Self - patient is the insured 1 [facility] [place] Medicaid [address] [address] [place] [address] [id number] SAROJ MEMBRENO Self - patient is the insured 5 [facility] [address] [place] [address] [id number] SAROJ MEMBRENO Self - patient is the insured 5 Medical (General) History Medical History History ICD Code ANXIETY DEPRESSION BACK PAIN ADHD Surgical History Surgery Date(Month/Year) none Hospitalization History Reason Date(Month/Year) none
--- OUTSIDE RECORDS SUMMARY | 2025-02-15 17:36 | XMS_ITS | CCD ---
Author Organization [facility] Care Team Providers Care Professor Of Exercise Science Name Role Phone Maria R Disla Unavailable Radhika Enrique Unavailable NON STAFF Primary Care Provider UnavailZAYRA Siddiqui- Michelle Hardwick Emergency Provider RFANCISCO J Enrique Attending Provider MARIA R DISLA [...] DR PEARSON Consulting Unavailable Naif NGUYỄNCarlosie Unavailable SASHA XIE Attending Unavailable NEO, ALLIE Referring Unavailable NEO, ALLIE Referring Unavailable SHELLY PARSONS Attending Unavailable MALONE, TOMS Referring Unavailable NETTA DILLARD Attending Unavailable NEO, ALLIE Referring Unavailable NEO, ALLIE Attending Unavailable MALONE, TOMS Attending Unavailable NEO, ALLIE Referring Unavailable NON STAFF Primary Care Provider UnavailISRAEL Torres Attending Provider ISRAEL Christie Attending Provider ISRAEL Alas Attending Provider MARIA R DISLA Attending Unavailable MARIA R DISLA Admitting Unavailable MARZENA MARTINEZ Attending Unavailable MARZENA MARTINEZ Admitting Unavailable MARIA R DISLA Attending Unavailable MARIA R DISLA Admitting Unavailable Jakob Bacayssa Unavailable Unavailable NON STAFF Primary Care Provider UnavailRajwinder French APRN Attending Provider [phone] Fred Longoria PA-C Attending Provider Valente Hebert DO Emergency Provider NON STAFF Primary Care Unavailable Valente Hebert Attending Unavailable Valente Hebert Admitting Unavailable IRA JENSEN Attending Unavailable WESLEY BROWNING Attending Unavailable RODRIGO GUZMAN Attending Unavailable IRA JENSEN Attending Unavailable IRA JENSEN Attending Unavailable Medications Current Medications Medication Drug Class(es) Dates Sig (Normalized) Sig (Original) acetaminophen 300 mg / codeine phosphate 30 mg oral tablet (2 sources) Opioid Agonist Start: 02-09-2025 End: 02-14-2025 take 1 tablet by mouth every six hours as needed for pain and headache and headache acetaminophen-codei ne (Tylenol w/ Codeine #3) 300-30 MG tablet Indications: Nonintractable headache, unspecified chronicity pattern, unspecified headache type Take 1 tablet by mouth every 6 (six) hours if needed for severe pain for up to 5 days 20 tablet 02/09/2025 02/14/2025 Active amoxicillin 875 mg oral tablet (6 sources) Penicillin-class Antibacterial Start: 03-07-2021 take 1 tablet by mouth every twelve hours Amoxicillin 875 MG 1 tablet Orally every 12 hrs for 7 days 14 Feb, 2021 Active clindamycin 10 mg/ml topical solution (12 [...] (20 sources) Progestin Start: 11-17-2022 End: 11-07-2024 etonogestrel-elutin g 68 mg contraceptive implant Indications: Encounter for [...] 12-19-2024 magnesium oxide 400 mg oral tablet (6 sources) Start: 02-07-2025 End: 09-05-2025 take 1 tablet by mouth once daily magnesium oxide (Mag-Ox) 400 MG tablet Indications: Nausea and vomiting in ([facility]) Take 1 tablet (400 mg) by mouth Daily 30 tablet 6 02/07/2025 09/05/2025 Active nitrofurantoin, macrocrystals 25 mg / nitrofurantoin, monohydrate 75 mg oral capsule (2 sources) Nitrofuran Antibacterial Start: 07-07-2022 take 1 capsule by mouth every twelve hours Macrobid 100 MG 1 cap(s) Orally 2 times a day for 5 day(s) Jun, Active ondansetron 4 mg oral tablet (6 sources) Serotonin-3 Receptor Antagonist Start: 02-07-2025 take 1 tablet by mouth every six hours as needed for nausea and nausea, then take 1 tablet by mouth every six hours as needed for nausea and nausea ondansetron (Zofran) 4 MG tablet Indications: Nausea and vomiting in ([facility]) Take 1 tablet (4 mg) by [...] Vit-Fe Fumarate-FA ( Vitamins) 28-0.8 MG tablet (14 sources) Start: 12-02-2024 End: 12-02-2025 take 1 tablet by mouth once daily Vit-Fe Fumarate-FA ( Vitamins) 28-0.8 MG tablet Indications: Encounter for supervision of normal first in first trimester ([facility]) Take 1 tablet by mouth Daily 30 tablet 11 12/02/2024 12/02/2025 Active promethazine hydrochloride 12.5 mg oral tablet (2 sources) Phenothiazine Start: 02-09-2025 take 2 tablets by mouth every six hours as needed for nausea and vomiting and headache and nausea and headache and nausea promethazine (Phenergan) 12.5 MG tablet Indications: Nonintractable headache, unspecified chronicity pattern, unspecified headache type , Nausea Take 2 tablets (25 mg) by mouth every 6 (six) hours if needed for nausea or vomiting for up to 30 doses Take 1 tablet by mouth every 6 hours as needed for nausea. 30 tablet 2 02/09/2025 Active traZODone hydrochloride 100 mg oral tablet (14 sources) Serotonin Reuptake Inhibitor Start: 11-15-2024 End: 12-19-2024 Start: 09-16-2023 End: 11-15-2024 take 1 tablet by mouth once daily Trazodone 50 mg tablet Discontinued 50 MG PO Daily September 16, 2023 12:00am November 15, 2024 10:11am 24 hr venlafaxine 37.5 mg extended release oral capsule (20 sources) Serotonin and Norepinephrine Reuptake Inhibitor Start: 02-28-2020 End: 12-19-2024 take 1 capsule by mouth every twenty-four hours Effexor XR 37.5 MG 1 capsule with food Orally Once a day for 30 days Feb, Active Start: 11-28-2019 take 1 capsule by mo [facility] every twenty-four hours Effexor XR 75 MG 1 capsule with food Orally Once a day for 30 days patient lost presciption Nov, Active Completed/Discontinued Medications Medication Drug Class(es) Dates Sig (Normalized) Sig (Original) [id number] 200 actuat albuterol 0.09 mg/actuat metered dose [...] Comment on above: Take 1 tablet by [facility] once daily. benzoyl peroxide 100 mg/ml medicated liquid soap (16 sources) Start: End: BENZAC AC WASH 10 % external wash WASH, LATHER AND RINSE AFFECTED AREAS IN THE GROIN AREA DAILY 09/22/2022 12/19/2024 Discontinued (Therapy completed) Comment on above: Apply 1 Application to affected area once daily. cefdinir 300 mg oral capsule (7 sources) Cephalosporin Antibacterial Start: End: take 1 capsule by mouth twice daily Cefdinir 300 mg capsule Discontinued 300 MG PO Twice daily 14 September 16, 2023 12:00am November 13, 2023 10:35am cyclobenzaprine hydrochloride 10 mg oral tablet (20 sources) Muscle Relaxant Start: End: take 1 tablet by mouth once daily Cyclobenzaprine 10 mg tablet Discontinued 10 MG PO Daily September 16, 2023 12:00am November 05, 2024 9:18am Start: 03-16-2020 take 1 tablet by [facility] every eight hours Cyclobenzaprine HCl 5 MG 1 tablet as needed Orally Three times a day Feb, Not-Taking dextromethorphan hydrobromide 15 mg / guaiFENesin 400 mg / pseudoephedrine hydrochloride 60 mg oral tablet (1 source) alpha-Adrenergic Agonist, Uncompetitive I-jvcgfi-H-aspartate Receptor Antagonist, Sigma-1 Agonist Start: 11-05-2024 End: 11-15-2024 take 4 tablets by mouth every twenty-four hours as needed Uaalqmdcxckyxjm-Ro-Idrpovwhtrb (Capmist Dm) 60-15-400 mg tablet Discontinued 1 [...] on above: Take 1 capsule by mo [facility] once daily. fluconazole 150 mg oral tablet [...] tablet Discontinued 60 MG PO Daily 15 November 09, 2024 12:00am November 15, 2024 10:11am with food spironolactone 50 mg oral tablet (16 sources) Aldosterone Antagonist End: 12-19-2024 spironolactone (Aldactone) 50 MG tablet 12/19/2024 Discontinued (Therapy completed) Comment on above: Take 1 tablet by rhona th once daily. valACYclovir 1000 mg oral tablet (16 sources) Herpesvirus Nucleoside Analog DNA Polymerase Inhibitor, Herpes Simplex Virus Nucleoside Analog DNA Polymerase Inhibitor, Herpes Zoster Virus Nucleoside Analog DNA Polymerase Inhibitor Start: 11-15-2024 End: 02-09-2025 valACYclovir (Valtrex) 1 g tablet Take 1,000 mg by mouth in the morning and 1,000 mg before bedtime. 11/15/2024 02/09/2025 Discontinued Start: 01-27-2022 take 1 tablet by rhona [...] conditions (1 source) Frequency of micturition Episodic Headache; including migraine (4 sources) Headache; Translations: [Nonintractable headache, unspecified chronicity pattern, unspecified headache type] 02-09-2025 Episodic Immunizations and screening for infectious disease [...] disorder; Translations: [Depression] Onset: 01-19-2023 01-19-2023 Chronic Nausea and vomiting (2 sources) Nausea; Translations: [Nausea] 02-09-2025 Episodic Open wounds of extremities (1 source) Laceration [...] 01-30-2023 Chronic Other and delivery including normal (9 sources) Normal ; Translations: [Encounter for supervision [...] of ] 01-19-2025 Episodic Residual codes; unclassified (4 sources) Gestation period, 15 weeks; Translations: [15 [...] [Systemic lupus erythematosus, unspecified] 09-16-2023 Chronic Unclassified (14 sources) OB Reminders Onset: 12-02-2024 12-02-2024 Urinary [...] 03-07-2021 Episodic Other aftercare (1 source) Other penitentiary (current) drug therapy; Translations: [OTH LONGTERM CURRENT DRUG THERAPY] Onset: 01-15-2022 Episodic Other [...] Test Name Value Interpretation Reference Range Facility Urinalysis macro (dipstick) panel (U)on 02-09-2025 Bilirubin, UA Negative Negative - 4(70) +++ mg/dL [facility] Blood, UA Negative Negative - 50 Dao/mcL [facility] Clarity, UA Clear [facility] Color, UA Yellow [facility] Glucose, UA Negative Negative - 1999(110) ++++ mg/dL [facility] Interpretation and review of laboratory results Normal [facility] Ketones, UA Negative Negative - 160(16) ++++ mg/dL [facility] Leukocytes, UA Negative Negative - 500+++ Hernandez/mcL [facility] Nitrite, UA Negative Negative - Positive [facility] pH, UA 6.5 5 - 9 [facility] Protein, UA Negative Negative - 2000(20) ++++ mg/dL [facility] Spec Grav, UA 1.015 1 - 1.03 [facility] Urobilinogen, UA 1.0 0.2 - 12 mg/dL [facility] RECURRENT VAGINITIS (HTRX)on 02-08-2025 ATOPOBIUM VAGINAE 0 [facility] ATOPOBIUM VAGINAE Not detected [facility] BVAB 2,3 (BACTERIAL VAGINOSIS ASSOCIATED BACTERIA 2, 3); MOBILUNCUS SPP 0 [facility] BVAB 2,3 (BACTERIAL VAGINOSIS ASSOCIATED BACTERIA 2, 3); MOBILUNCUS SPP Not detected [facility] ASHUTOSH ALBICANS, PARAPSILOSIS, TROPICALIS 0 [facility] ASHUTOSH ALBICANS, PARAPSILOSIS, TROPICALIS Not detected [facility] ASHUTOSH GLABRATA 0 [facility] ASHUTOSH GLABRATA Not detected [facility] ASHUTOSH KRUSEI 0 [facility] ASHUTOSH KRUSEI Not detected [facility] CHLAMYDIA TRACHOMATIS 0 [facility] CHLAMYDIA TRACHOMATIS Not detected [facility] GARDNERELLA VAGINALIS 0 [facility] GARDNERELLA VAGINALIS Not detected [facility] MEGASPHAERA (TYPES 1, 2) 0 [facility] MEGASPHAERA (TYPES 1, 2) Not detected [facility] MYCOPLASMA GENITALIUM 0 [facility] MYCOPLASMA GENITALIUM Not detected [facility] NEISSERIA GONORRHOEAE 0 [facility] NEISSERIA GONORRHOEAE Not detected [facility] TRICHOMONAS VAGINALIS 0 [facility] TRICHOMONAS VAGINALIS Not detected [facility] Urinalysis macro (dipstick) panel (U)on 02-07-2025 Bilirubin, UA Negative Negative - 4(70) +++ mg/dL [facility] Blood, UA Negative Negative - 50 Dao/mcL [facility] Clarity, UA Clear [facility] Color, UA Yellow [facility] Glucose, UA Negative Negative - 2000(110) ++++ mg/dL [facility] Interpretation and review of laboratory results Normal [facility] Ketones, UA Negative Negative - 160(16) ++++ mg/dL [facility] Leukocytes, UA Negative Negative - 500+++ Hernandez/mcL [facility] Nitrite, UA Negative Negative - Positive [facility] pH, UA 7 5 - 9 [facility] Protein, UA Negative Negative - 2000(20) ++++ mg/dL [facility] Spec Grav, UA 1.01 1 - 1.03 [facility] Urobilinogen, UA 0.2 0.2 - 12 mg/dL [facility] BOX TESTon 01-19-2025 BOX TEST SENT OUT [facility] BOX1 [facility] BOX2 01/19/25 [facility] Urinalysis macro (dipstick) panel (U)on 01-19-2025 Bilirubin, UA Negative Negative - 4(70) +++ mg/dL [facility] Blood, UA Negative Negative - 50 Dao/mcL [facility] Clarity, UA Clear [facility] Color, UA Yellow [facility] Glucose, UA Negative Negative - 1999(110) ++++ mg/dL [facility] Interpretation and review of laboratory results Normal [facility] Ketones, UA Negative Negative - 160(16) ++++ mg/dL [facility] Leukocytes, UA Negative Negative - 500+++ Hernandez/mcL [facility] Nitrite, UA Negative Negative - Positive [facility] pH, UA 6 5 - 9 [facility] Protein, UA Negative Negative - 1999(20) ++++ mg/dL [facility] Spec Grav, UA 1.02 1 - 1.03 [facility] Urobilinogen, UA 1.0 0.2 - 12 mg/dL [facility] Laboratory - Specimen inform ationon 12-19-2024 Specimen type Nom (Spec) vaginal [facility] No Panel Informationon 12-19 GONORRHOEAE DNA(PCR) Negative Negatvie [facility] Interpretation and review of laboratory results Normal [facility] Glucose, UA Negative Negative - 1999(110) ++++ mg/dL [facility] Interpretation and review of laboratory results Normal [facility] Protein, UA Negative Negative - 1999(20) ++++ mg/dL [facility] IGP,APTIMA HPV,AGE GDLNon AGE GDLN ACOG TESTING Note . [facility] Comment on above: TESTS RESULT FLAG UN ITS REF RANGE LAB Clinician Provided Cytology Information Source.............Cervix;Endocervix No. of containers..01 ThinPrep Vial Age Algo ACOG Yolanda... FLAG LEGEND: L-Low Normal,H-High Normal,LL-Alert Low,HH-Alert High <-Panic Low,>-Panic High,A-Abnormal,AA-Critical Abnormal Performed at: 01 =G [facility] [address] [place] [address] Allison Miller MD, IGP, RFX APTIMA HPV ASCU Note . [facility] Comment on above: TESTS RESULT FLAG U NITS REF RANGE LAB DIAGNOSIS: 02 NEGATIVE FOR INTRAEPITHELIAL LESION OR MALIGNANCY. Specimen adequacy: 02 Satisfactory for evaluation. No endocervical component is identified. Performed by: Jay Jenkins Extractions Technologist ([facility]) . 02 Note: Note 02 The Pap [...] <-Panic Low,>-Panic High,A-Abnormal,AA-Critical Abnormal Performed at: [address] [id number] Allison Miller MD, Performed at: =G - [facility] [id number] Workers Compensation Claims Examiner: Allison Miller MD, Phone: [phone] Performed at: [address] [id number] Workers Compensation Claims Examiner: Allison Miller MD, Phone: [phone] BRUSH-SPATULA CERVIX ENDOCERVIX [facility] HAILEE w/Reflex if POSon 2023 Nuclear Ab Ql (S) Negative Invalid Interpretation Code Negative [facility] Comment on above: Result Comment: Perf ormed at: [facility] [id number] PhD Fara Braswell Performed By: #### 1 [id number] #### [facility] [address] [place] [address] Cortisolon 03-24-2024 Cortisol [Mass/Vol] 15.2 microgram/dL Invalid Interpretation Code 6.2-19.4 [facility] Comment on above: Result Comment: Christy luis Note: The reference interval and flagging for this test is for an AM collection. If this is a PM collection please use: Cortisol PM: 2.3-11.9 Performed at: [address] [id number] PhD Fara Braswell Performed By: #### 2 [id number] #### [facility] [address] [place] [address] FSH and LHon 03-24-2024 Follitropin Qn 7.7 m[IU]/mL Invalid Interpretation Code [facility] Comment on above: Result Comment: Adul t Female Range Follicular phase 3.5 - 12.5 Ovulation phase 4.7 - 21.5 Luteal phase 1.7 - 7.7 Postmenopausal 25.8 - 134.8 Performed at: [address] [id number] PhD Fara Braswell Performed By: #### 1 [id number] #### [facility] [address] [place] [address] Lutropin Qn 8.6 m[IU]/mL Invalid Interpretation Code [facility] Comment on above: Result Comment: Adul t Female Range Follicular phase 2.4 - 12.6 Ovulation phase 14.0 - 95.6 Luteal phase 1.0 - 11.4 Postmenopausal 7.7 - 58.5 Performed By: #### 1 [id number] #### [facility] [address] [place] [address] Insulin Lvlon 03-24-2024 Insulin Qn 9.4 u[IU]/mL Invalid Interpretation Code 2.6-24.9 [facility] Comment on above: Result Comment: Perf ormed at: [address] [id number] PhD Fara Braswell Performed By: #### 1 [id number] #### [facility] [address] [place] [address] RF Quanton 03-24-2024 Rheumatoid factor Qn [IU]/mL Invalid Interpretation Code <14.0 [facility] Comment on above: Result Comment: Perf ormed at: [address] [id number] PhD Fara Braswell Performed By: #### 1 [id number] #### [facility] [address] [place] [address] T3 Totalon 03-24-2024 T3 [Mass/Vol] 131 ng/dL Invalid Interpretation Code 71-180 [facility] Comment on above: Result Comment: Perf ormed at: [address] [id number] PhD Fara Braswell Performed By: #### 1 [id number] #### [facility] [address] [place] [address] CMPon 03-23-2024 Albumin [Mass/Vol] 4.3 g/dL Normal 3.3-5.0 [facility] Comment on above: Performed By: #### 2 [id number] #### [facility] [address] [place] [address] Albumin/Globulin (S) [Mass conc ratio] 1.4 Normal 1.1-2.2 [facility] Comment on above: Performed By: #### 2 [id number] #### [facility] [address] [place] [address] ALP [Catalytic activity/Vol] 82 Int._Unit/L Normal 21-98 [facility] Comment on above: Performed By: #### 2 [id number] #### [facility] [address] [place] [address] ALT No additional P-5'-P [Catalytic activity/Vol] 13 Int._Unit/L Normal 6-46 [facility] Comment on above: Performed By: #### 2 [id number] #### [facility] [address] [place] [address] Anion gap [Moles/Vol] 11 mmol/L Normal 6-16 [facility] Comment on above: Performed By: #### 2 [id number] #### [facility] [address] [place] [address] AST [Catalytic activity/Vol] 16 Int._Unit/L Normal 5-43 [facility] Comment on above: Performed By: #### 2 [id number] #### [facility] [address] [place] [address] Bilirubin [Mass/Vol] 0.8 mg/dL Normal 0.0-1.1 [facility] Comment on above: Performed By: #### 2 [id number] #### [facility] [address] [place] [address] Calcium [Mass/Vol] 9.4 mg/dL Normal 8.9-11.1 [facility] Comment on above: Performed By: #### 2 [id number] #### [facility] [address] [place] [address] Chloride [Moles/Vol] 104 mmol/L Normal 101-111 [facility] Comment on above: Performed By: #### 2 [id number] #### [facility] [address] [place] [address] CO2 [Moles/Vol] 27 mmol/L Normal 21-31 [facility] Comment on above: Performed By: #### 2 [id number] #### [facility] [address] [place] [address] Creatinine [Mass/Vol] 0.7 mg/dL Normal 0.5-1.3 [facility] Comment on above: Performed By: #### 2 [id number] #### [facility] [address] [place] [address] Globulin (S) [Mass/Vol] 3.0 g/dL Normal 1.4-4.0 [facility] Comment on above: Performed By: #### 2 [id number] #### [facility] [address] [place] [address] Glucose [Mass/Vol] 89 mg/dL Normal 55-199 [facility] Comment on above: Performed By: #### 2 [id number] #### [facility] [address] [place] [address] Potassium [Moles/Vol] 4.1 mmol/L Normal 3.5-5.3 [facility] Comment on above: Performed By: #### 2 [id number] #### [facility] [address] [place] [address] Protein [Mass/Vol] 7.3 g/dL Normal 6.0-7.8 [facility] Comment on above: Performed By: #### 2 [id number] #### [facility] [address] [place] [address] Sodium [Moles/Vol] 138 mmol/L Normal 135-145 [facility] Comment on above: Performed By: #### 2 [id number] #### [facility] [address] [place] [address] Urea nitrogen [Mass/Vol] 10 mg/dL Normal 5-21 [facility] Comment on above: Performed By: #### 2 [id number] #### [facility] [address] [place] [address] Urea nitrogen/Creatinine [Mass ratio] 14 No Units Normal - [facility] Comment on above: Performed By: #### 2 [id number] #### [facility] [address] [place] [address] [id number] 03-23-2024 HbA1c (Bld) [Mass fraction] 5.1 % Normal <=5.9 [facility] Comment on above: Performed By: #### 7 [id number] #### [facility] [address] [place] [address] Lipid Panelon 03-23-2024 Cholesterol [Mass/Vol] 153 mg/dL Normal 120-200 [facility] Comment on above: Performed By: #### 2 [id number] #### [facility] [address] [place] [address] Cholesterol in HDL [Mass/Vol] 45 mg/dL Invalid Interpretation Code [facility] Comment on above: Result Comment: '>= 60 LOW RISK' '<= 40 HIGH RISK' Performed By: #### 2 [id number] #### [facility] [address] [place] [address] Cholesterol in LDL [Mass/Vol] 102 mg/dL Normal <=129 [facility] Comment on above: Performed By: #### 2 [id number] #### [facility] [address] [place] [address] Cholesterol in VLDL [Mass/Vol] 26 mg/dL Normal 7-40 [facility] Comment on above: Performed By: #### 2 [id number] #### [facility] [address] [place] [address] Triglyceride [Mass/Vol] 129 mg/dL Normal <=149 [facility] Comment on above: Performed By: #### 2 [id number] #### [facility] [address] [place] [address] T4 & TSHon 03-23-2024 TSH Qn 2.00 m[IU]/L Normal 0.34-5.60 [facility] Comment on above: Performed By: #### 1 [id number] #### [facility] [address] [place] [address] T4 [Mass/Vol] 9.5 microgram/dL High 4.6-9.1 [facility] Comment on above: Performed By: #### 1 [id number] #### [facility] [address] [place] [address] eGFRon 03-23-2024 eGFR 124 mL/min/1.73 m2 Normal >=59 [facility] Comment on above: Performed By: #### 1 [id number] #### [facility] [address] [place] [address] No Panel InformationOrdered By: Manjula Nevarez on 01-20-2024 [facility] Beta hCG Qnt <1 Normal 1-3 [facility] Comment on above: Result Comment: 'F N ON < 1 - 3' ' 0.2 - 1 WEEK = 5 TO 50' ' 1 - 2 WEEKS = 50 - 500' ' 2 - 3 WEEKS = 100 - 5000' ' 3 - 4 WEEKS = 500 - 27059' ' 4 - 5 WEEKS = 1000 - 09074' ' 5 - 6 WEEKS = 82572 - 871629' ' 6 - 8 WEEKS = 53525 - 236115' ' 8 - 12 WEEKS = 60561 - 259814' Performed By: #### 2 [id number] #### [facility] [address] [place] [address] Physician Orderon 06-30-2023 Physician Order [id number] Normal [facility] US ABD RIGHT UPPER QUADRANTo n 03-12-2023 [...] hydronephrosis. Ascites: None. IMPRESSION: No acute findings. Astronautical Engineer: DOC Transcribe Date/Time: Mar 13 2023 11:44A Dictated by : TANNER RAMSEY MD This examination was interpreted and the report reviewed and electronically signed by: TANNER RAMSEY MD on Mar 13 2023 11:49AM EST [id number] Normal [facility] SURGICAL PATHOLOGYOrdered By : Ayan Donaldson on 03-05-2023 Case Report Surgical Pathology R eport Case: [id number] Authorizing Provider: Shelly Parsons DO Collected: 03/03/2023 10:24 AM Ordering Location: Ambulatory Surgery Received: 03/03/2023 10:41 PM Pathologist: Ayan Donaldson MD Specimens: A) - SMALL INTESTINE BIOPSY, r/o celiac B) - STOMACH BIOPSY, r/o h pylori C) - STOMACH (GASTRIC) POLYP BIOPSY, polyps [facility] Work Phone: Diagnosis Comment [id number] [id number] [id number] hBDysSJghNDOtcSF9ERCzlRTb X1XrLYTiPHnhMFGslgl2ItFpV l3zoQQklBbfBAzbCGGoCADkVO hcIFTlSpQnQjjjBh2dLk1kHUA dmZQuJdWriVQdSWZ1aW7poRZw omvyplpteEOjLFMfMWxnPX80f BMjBYMjMR7mVGazuZBrwKltFM bfmYC6ATIfFSPhPXXqusBySEU uLiBUaGVyZSBpcyBubyBldmlk OC0hLDTsUtRoxMRftROtxVZpn 6JyzMGsnYfhHD6toE8rqBYmjN == [facility] Work Phone: FINAL DIAGNOSIS g7objWGvOFSfgZEkNBRn M1xhb fGrXCLjmGWmR6KffthnDDqyDN 5rOD3xmJvfnZRbpRRnFYIyWgJ ic8ntx412iWPkp7ccLTUIidyh oKm7uUhdR59rj3T0OxmxZ57pf ELzJJX3VRNdSIHgyNWsWXMxNA S4JMWgoRKpI6hyGQNyEF4czsm nOFdfBHmeVDNtwHB1QQNetDZu X1CmAMEaBSmdLGQasra8UmFjR i0nnYUmgJdpERuwBBFjSTSfFK znKHLiXwAiHE0jXHIbZKOqjO6 jQAZgy8AfbPpdwQulFXGgOEQd HMcyWXXeh5YkAD18W37rUFT2i KWbYT3dDQCmKEzmc2K5iIZfJP Hia7TeZMawgAwdLAAmmspsBBV vJr9dH8ImhUDgqNjjHpyhnLX6 QlhpyA6fXV5vO1QgJITxhKTnG QamGcYtY19omkMqx6MgV9GyoF OtWmRhvDTnb3Fgd1v1kYZhHQA jmNw5FNCkUZN6vp7oOXFmiK76 cHYxEWHqDQ7lPYJzLDEwtmXfI GVrqOLtJPYdYRFdZUrkFJ13wk EwZcHrATV0whqmMB74yF46nFR ymXihWHPazHIji8Sat6j5hHZz wiIciOBper2iuGhsZJToeu6ho RMycSE1WommEWSckSEqEAAxCQ N6h37dU7ezWQYevTuejnovSph zvAWrWAO7YNdduhGdRCIUxE9r qXKtO9fgyxOlnW7utZOgXTPkk iAtIFNlcGFyYXRlIGZyYWdtZW 59EL1cYXxzc0XlqKVps8o2szY dIw96iXMkML07L88yJDY9pOWa RVJbhxFaeFOmBBi8oUPwpJilb 2lhLlxwYXJccGFyIEpFTCAxMC 8nKb8eVDFyOMWiky5= [facility] Work Phone: Gross Description s6mwlNNxCGMtaCKfEIAl M1xhb yVuNCPlpESeY6BarvomEIshOL 1rLD5tlMswpEWluWJuMKUdYhJ ix2cuo733rRIss7wvKSCBsgpx iAo0eMqlO94ez0O1LqemD27hh TWrPCH8PYOiSVOzsIFuCXVyJT L4MKFkfTBaC9qbUVIvNP8mnzm zUZtqVLzaQXPqmST4SBQrfMPy Y2PaNLWrYYjsFOQkces7UrJoU n7suPBzeJflYFwrUdckvEhuq4 VjdCBcXGlkIDUxMDAwIFxcZGI kU7IMYCBtOKI0KvDxYQWdPOKI UTY9QReiAMM6POOPGBLaGXqmJ dA4VQGaQHTwOSGLLYEdTmE6DX AwMDIgXFxuaCBcXHQgMSBcXGZ cUQpsztD5v9llEWMlnANvBEO5 IFxcaWQgNTEwMDIgXFxkYiBPV oPoEbW4Fch9GkWkKdPoZIb9FO dvB0TTQPYaUPO9YyVhXCC0PvM 7CTq3PDFVHz2kYADkMBC1Grx9 UuCuXFQ3UlDcQCq0VDHfWPoyj hHpONssHidmKTdrF69zoQXoPU xwbGFpblxmczIyIEEuIFNNQUx UCVcPOESOTJcNWYHAJR4DH9cq wQRjDRAfnmKvq8LtFNnjfXemW UKbGkFktQaafF9vRvVzFGMDCL MttMTdCAIbbvBef3OuTUwqgrA xgqLzozXelRzeV0Jar9HvdLWj RDNgq2sqUVQwr5G0DENcd1X5T MUeLZUuhFFufhveOO36WZnvRJ 34SZyuLJ0mVLTtEdGKu9RaqRy 4SZP8Zr7fgMNyRTZgqtIjefWf B2Skk2W7bYDoPSesWFAreXTuQ QkfSUHgXYArlZLPt3KfJDukOT LoF2HiH3YvrnK5ECRtkkkjTrf tpLtyn4TwaLXdJQupKVHoFBIk VMxgWIGlC0EFUUAcAIH4HyFjE ZLwHRv5FSd3NI7ZBnZtCPSpOF GaYugtVOSqMDj4HMsvFH9FSXC bQwX3KzV1TIB6DSR1Lmn2DGca aHEgPPixc6OiGaTxJVTyYOrfu yQ6CEMugwPpy6KbXOFjJAYfI2 drSnTkSBudeaIgJOBwFZSIK97 KZ9szOivJBODWOBDgfgqpPXNd BDVsSyInCXFyV9wqYdKdNGSeE XfpFJCnUaSvCvEcRBi4CZJbgB 8oXn6miTIxcL9jAKLuZV15oLE onKroTZAsRWWuhjChLnR1NE3x OiDzw62wSEGdNxEylMvaf2VwU KBhS7AlS6G6nW8aXFCeAVJcJn I2XHAfKbP9QXXoWiYsgB3fXP3 0EAkvvCCujJTxsRN0ELFvnH0x g63tIJYuq8HhvKDbCbYxmYBwX FHsgtHag1XmVDzynPgzQWZmSh T8BDIjdARoEGP2LE2xnPfbZEE 1KQndAYSlC7PpO7YoHFncRDE2 PPBoCtUaMTRzLY0YPgYgRBAjR po3LjQuOoI7SRy0ZZUWBpXnWb RoLak4FsB1MmvmOVe0GNk2XNx MYkOgNPRzQVgiOmh9QWJ0EJl2 NCBcXHQgMiBcXHNzIDMgXFxmb LZzZZ6vyJouPPYwMNOaMEO8OK QufZRBm1NwJIRvMhWfUrEKSeE ARF3TCWMXLYoUGSNTOyvCREHB R5lKIDLJON7YW6uqqXNaZKRfp uPnd3QrDYaxvJnhBIAlAbOatX pjhX1uSlBgUDEABQWukJZqEDN oidAdo0CqWDksaaGvswKbeHgm AOYzTNRaylRkOxF5PR1yXzXej 57aUFNqXrTktSzwm2UdBKIgA3 BmW6X6yE4bWQCzIYHrEyV4DRC zCgY9QXQaXaSliO2oSD98WYmq bREdnIIztRK4YARsmN7fq79aW AJnt7QjeXRgGknhOAMscEUgBR SyNKCiwsCWej5fqlFfeHYdeI4 zlScsbeQhWEFyu4WaIYGkRDMz U6ikgoEeQE3vMDYbpH8iVudjW TUwMCBFdWNsaWQgQXZlLiwgQ2 stohVuPN7dAMCRSZJ1GLM6NRs xIGKqyJIzMWYeMfClEZYiA1cl JZLfYCuTGE1voT3mMHKdRZVrA DIwMjMgMTozMiBBTVx+e1xlcG abb3IakZDrFL59UXYmgAXoDVU 3EZ9oaGuqIWG6 [facility] Work Phone: Performing Lab g7qlgIRzHJEanYByXfXj MDAwX QYkx0kiEBQmgPRfGlQsWzUwVv LoJqfmpIHgPYNiMdWkl2phj63 8tCNcp8yjTTOuZzK8dDVvVXEz zSIfK225TGDoFNrqh2ylh4XqV CJnfWYus1R7WHWTlpmzmPl1cC ohY99ss4T6BvbtY7qyHWOvQQY pX7BaZB2hOYCkCkv0WJA3TUV9 OPYxRCDrF0EhVF5vIRUamOHcA By2m0tsiUugHJDeEHN6k3xhZP civlXrSF9zyv0xwJq8y3dheyH wBCJeLREgrLPFKDKnZ8BkjWqu Rm3poJy9yIefYiwjFRA4Wzy7C S9xnt44ttn9dPahICOnygcjWb B5EDpuNXKozrlbIKd7EZwtRYU dsNP2ZDAifTDqM6OyHIIqWH9p trk4JPY1ERmzVYRnTeV2ROFdc FErZTUtwYtpHZggp827HZM3Ob OvCA7vO9Dhp7W3pC6hjRCrSZQ zkDGbTeAwBSMyrx4hkOHpQVhe i7PrQVE4hmB8qSNpqTTaSYClN A67Uebik6UfGbngc5LoX81haF H1LFshc0qvGV0kUoL3fuUlQZf kw1hpjE7uFkA2KNgbBY2gOJ5e UGRpqY7bysynDPTiRySloqhqY UYlrLzlwmXaCm1aqKeoLZB7KK riH0zynV9zCoF6NKqdA5niqD6 oCFh1GExcaYY7DDDmaG4jHV1z tfvxd8fbLXemKQzvWLCnfjY2w aR7PUZnkXXcM7BozI8nPJLwMC 9niwgpk7prPUB2GLweMKOlKNN 3XzFkTBDnr6Ffqkw5EkPgd8Rt vYWiGQpvM70ma757LTWifeSiJ 1xwbGFpblxwbGFpblxmMFxmcz H3NSEjCTTrKRomNQExINUoRzE cbGFuZzEwMzNcaGljaFxmMVxk AbRoAYYhVOmrA7uaVdGhSyMsX fXZrKBtfn6vsDowENkfbFMmsZ LuyRV1wQ5gFLVzyyNxmk6mQHB iyZPObWJ6XVpiirWvY3cnricg OWBjkML3rGG0EVvpr5SwrJFaN MYwDIGyZJEJv4KcvV9jIFXaON PGpUS2QPratuHkKK8YHLN5IYZ aBJObHSCMGXGxJSL7ULZ6FAb1 NDlccGFyXHBhclxwYXJkXHBsY QzwRYXmCIDbUhVuaGnzxG0nDu UoOeTcQifhCJ5nDURsV8hnmSE fTHUrJNLpA5srAxPyiY7piNcu MVxjZjJcZnMyMlxsdHJjaCBMY DOscmL7x6Z9CFzzdSCrafilVT pzpbHrNFdvvhwxMPPaYAktE8k eZgThUHHncJzdMSdck5LwYAKb VXSvMcQkGSdwVQP0g4B1BB3hf oibBy9bHTWdDUUvP13uYEVWGx QuXHBhcn0= [facility] Work Phone: [facility] Work Phone: ANES POSTPROC EVALon 023 ANES POSTPROC EVAL HNO ID: [id number] Author: Ralph Childs APRN.COLD WORKING SUPERVISOR Service: ? Author Type: Nurse Auctioneer Tobacco Type: Anesthesia Postprocedure Evaluation Filed: 03/03/2023 10:32 [...] Anesthesia Observations No Documentation SIGNATURE: Ralph Childs APRN.COLD WORKING SUPERVISOR PATIENT NAME: Saroj Membreno DATE: March 03, 2023 TIME: 10:31 AM CSN: [id number] Normal [facility] EGD Study observation Narrat laura 03-03-2023 [facility] Gastroenterology Gastrointestinal Endoscopy Patient Name: Saroj Membreno Procedure Date: 03/03/2023 10:10 AM Date of : 2000 Admit Type: Outpatient Age: 23 Room: [facility] 3 Gender: Female Note Status: Finalized Attending [...] referring physician. Procedure Code(s): --- Professional --- 40736, Esophagogastroduodenosc (more content not included)... PROVATION [facility] Radiology Study observation (narrative) [facility] HISTORY PHYSICALon HISTORY PHYSICAL HNO ID: [id number] Author: Shelly Parsons DO Service: Gastroenterology Author [...] Additional Comments: None Shelly Parsons DO Normal [facility] NURSING PROGon 03-03-2023 NURSING PROG HNO ID: [id number] Author: Meghann Kwan RN Service: Nursing Author [...] Escalante RN In Department: AMBULATORY SURGERY Normal [facility] NURSING PROG HNO ID: [id number] Author: Bia Price RN Service: ? Author [...] Price RN In Department: AMBULATORY SURGERY Normal [facility] SURGICAL PATHOLOGYon 023 CASE REPORT Normal [facility] Comment on above: Order Comment: Deyvi rhodes Type: TISSUE SPECIMENOrdering Facility: [facility] Address: [address] [place] [address] Result Comment: Surg ica Pathology Report Case: [id number] Authorizing Provider: Shelly Parsons DO Collected: 03/03/2023 10:24 AM Ordering Location: Ambulatory Surgery Received: 03/03/2023 10:41 PM Pathologist: Ayan Donaldson MD Specimens: A) - SMALL INTESTINE BIOPSY, r/o celiac B) - STOMACH BIOPSY, r/o h pylori C) - STOMACH (GASTRIC) POLYP BIOPSY, polyps Performed By: #### S ####VY LABORATORYCLIA [id number] [place] [address] [place] DIAGNOSIS COMMENT B, C. No Helicobacte r pylori organisms are identified. No intestinal metaplasia is seen. There is no evidence of dysplasia or malignancy. Normal [facility] Comment on above: Order Comment: Speci men Type: TISSUE SPECIMENOrdering Facility: [facility] Address: [address] [place] [address] Performed By: #### S ####DAUPHIN LABORATORYCLIA [id number] [address] FINAL DIAGNOSIS Normal [facility] Comment on above: Order Comment: Speci men Type: TISSUE SPECIMENOrdering Facility: [facility] Address: [address] [place] [address] Result Comment: A. D uodenum, biopsy: - Small bowel mucosa with no diagnostic abnormality. B. Stomach, biopsy: - Superficial fragment of gastric mucosa with reactive gastropathy-type changes. - Separate fragments of gastric oxyntic-type mucosa with no diagnostic abnormality. C. Stomach, polyps, biopsies: - Fundic gland polyp. - Separate fragment of gastric oxyntic-type mucosa with foveolar hyperplasia. JEL 03/05/2023 Performed By: #### S ####DAUPHIN LABORATORYCLIA [id number] [address] FINAL PERFORMING LAB Normal [facility] Comment on above: Order Comment: Speci men Type: TISSUE SPECIMENOrdering Facility: [facility] Address: [address] [place] [address] Result Comment: Diag nostic interpretation performed at [facility], [address] [place] [address] CLIA# [id number] Ciso: Guilherme Gonzalez M.D. Performed By: #### S ####DAUPHIN LABORATORYCLIA [id number] [address] GROSS DESCRIPTION Normal [facility] Comment on above: Order Comment: Speci men Type: TISSUE SPECIMENOrdering Facility: [facility] Address: [address] [place] [address] Result Comment: A. S MALL INTESTINE BIOPSY [...] in one cassette. Gross examination performed at [facility], [address] [id number] March 04, 2023 1:32 AM Performed By: #### S ####VY LABORATORYCLIA [id number] [address] Upper GI endoscopy 10-10-2 023 Upper GI endoscopy [facility] Gastroenterology Gastrointestinal Endoscopy Patient Name: Saroj Membreno Procedure Date: 03/03/2023 10:10 AM Date of : 2000 Admit Type: Outpatient Age: 23 Room: [place] [address] Gender: Female Note Status: Finalized Attending MD: [...] referring physician. Procedure Code(s): --- Professional --- 82630, Esophagogastroduodenoscop y, flexible, transoral; with biopsy, single or multiple Diagnosis Code(s): --- Professional --- K22.89, Other specified disease of esophagus K31.7, Polyp of stomach and duodenum Z01.818, Encounter for other preprocedural examination E66.01, Morbid (severe) obesity due to excess calories CPT copyright 2020 [employer]. All rights reserved. The codes documented in this report are preliminary and upon varnish inspector review may be revised to meet current compliance requirements. Scope In: 10:21:13 AM Scope Out: 10:25:[address] Shelly Parsons, DO Shelly Parsons DO 03/03/2023 10:30:44 AM This report has been signed electronically by Shelly Parsons DO Number of Addenda: 0 Note Initiated On: 03/03/2023 10:10 AM Estimated Blood Loss: Estimated blood loss was minimal. Normal [facility] ANES PRE-OPon 02-16-2023 ANES PRE-OP HNO ID: [id number] Author: Ralph Childs APRN.COLD WORKING SUPERVISOR Service: ? Author Type: Nurse Auctioneer Tobacco Type: Anesthesia Preprocedure Evaluation Filed: 03/03/2023 10:13 [...] and consent discussed: yes. Patient / Responsible Constitution Party agrees to proceed: yes Patient / [...] 48 hours of Surgery/Procedure. SIGNATURE: Constance Schumacher APRN.COLD WORKING SUPERVISOR PATIENT NAME: Sarjo Membreno DATE: February 16, 2023 TIME: 2:56 PM CSN: [id number] Normal [facility] CNOVon 02-11-2023 CNOV Office Visit (CARDAV ) ----- SAROJ MEMBRENO ([id number]) 2 F Date Time Provider Department 02/11/23 8:30 AM NURSE CARD [facility] MARIA M BARBOZA During your visit today, we recorded the following information about you: Roya Lawler RN 02/11/2023 8:34 AM Signed Ekg completed. Pt with no voiced complaints. Provider cc'd of completion. Referring Provider: ALLIE LARSON [[id number]] Allergies As of Date: 02/11/2023 (No Known Allergies) Date Reviewed: 02/04/2023 Reviewed by: Sasha Xie RD - Fully Assessed Reason for Visit: Cardiology Follow Up [1732] Visit Diagnoses:Pre-op evaluation [Z01.818] Class 3 severe obesity with serious comorbidity and body mass index (BMI) of 40.0 to 44.9 in adult, unspecified obesity type (HCC) [E66.01, Z68.41] Order(s):ECG COMPLETE [ECG01] Order #: [id number]. #:[id number] Prescriptions as of 02/11/2023 - ARIPiprazole [...] Status:Closed by ROYA LAWLER on 02/11/23 Normal [facility] ECG COMPLETEon 02-11-2023 ECG COMPLETE Ventricular Rate : 5 9 BPM Atrial Rate : 59 BPM P-R Interval : 166 ms QRS Duration : 74 ms Q-T Interval : 408 ms QTC Calculation(Bazett) : 403 ms Calculated P [place] : 35 degrees Calculated R [place] : 66 degrees Calculated T [place] : 39 degrees SINUS BRADYCARDIA WITH SINUS ARRHYTHMIA BORDERLINE ECG Confirmed by STALIN HARRIS MD ([id number]) on 02/12/2023 9:13:18 PM NAME : SAROJ MEMBRENO PID : [id number] : 2000 Gender : Female Race : ORD : [id number] Procedure Date : Feb 11 2023 08:29:59 Edit Date : Feb 12 2023 21:13:23 Diagnosis: SINUS BRADYCARDIA WITH SINUS ARRHYTHMIA BORDERLINE ECG Confirmed by STALIN HARRIS MD ([id number]) on 02/12/2023 9:13:18 PM Test Reason : Location : 192 : AVCRD Overread By : STALIN HARRIS MD Edited By : STALIN HARRIS MD Referred By : ALLIE LARSON Acquired by : , Jeanine [facility] 02-10-2023 CNPN Telephone (WIQ) ----- ANNMARIE MEMBRENOTEN ([id number]) 2 F Date Time Provider Department 02/10/23 CECE OBANDO During your visit today, we recorded the following information about you: [facility] 02/10/2023 10:12 AM Signed Smoking Cessation Navigation Outcome of contact: Spoke with Intervention Chosen By Patient: Other Comments: Patient quit last week. eHealth Beverage Manager/Smoking Cessation Navigator: [facility]ce [facility]Nov[facility] Allie Larson APRN.[facility] 02/10/2023 11:32 AM Signed Noted, thank [...] Encounter Status:Closed by CECE OBANDO on 02/10/23 [facility] CNOVon 01-30-2023 CNOV Office Visit (BMIREJ ) ----- ANNMARIE MEMBRENOTEN ([id number]) 2 F Date Time Provider Department 01/30/23 [...] would be a candidate for either sleeve gastrectomy/Rgaciela-en-Y gastric bypass but based on long-term benefits has decided to proceed with a gastric bypass. Patient meets NIH criteria for surgery. I have discussed with patient regarding peoperative goal weight prior to liquid fast: Per new order clerk Surgically Cleared with completion of the below: [...] potential med (more content not included)... Normal [facility] XR CHEST 2V FRONTAL/LATon XR CHEST [...] tissues: Unremarkable. IMPRESSION: No acute radiographic abnormality. Astronautical Engineer: DOC Transcribe Date/Time: Jan 30 2023 12:41P Dictated by : ROD BELL MD This examination was interpreted and the report reviewed and electronically signed by: ROD BELL MD on Jan 30 2023 12:43PM EST [id number] [facility] CNPN Telephone (WIQ) ----- SAROJ MEMBRENO ([id number]) 2 F Date Time Provider Department 01/21/23 CECE OBANDO WIQ During your visit today, we recorded the following information about you: [facility] 01/21/2023 11:57 AM Signed Smoking Cessation Navigation Outcome of contact: Left Message Comments: A voicemail has been left for this patient regarding Tobacco Cessation support options. If this patient has any further questions they can email us at or call us at [phone]. ealth Beverage Manager/Smoking Cessation Navigator: [facility] Allergies As of Date: 01/21/2023 (Not on File) Date Reviewed: 01/19/2023 Reviewed by: Allie Larson APRN.DIRECTORY OPERATOR - Fully Assessed Reason for Visit: Smoking [...] Encounter Status:Closed by CECE OBANDO on 01/21/23 [facility] CNOVon 01-19-2023 CNOV Office Visit (GENBMI ) ----- SAROJ MEMBRENO ([id number]) 2 F Date Time Provider Department 01/19/23 9:00 AM ALLIE LARSON GENBMI During your visit today, we recorded the following information about you: Pulse Blood pressure Weight Height 84/minute 111/53 114.9 kg 1.622 m Last Period 12/29/22 Allie Larson APRN.DIRECTORY OPERATOR 01/19/2023 10:06 AM Signed [facility] Obesity Medicine Initial Bariatric Surgery Consult January [...] Characterization of diet: Unstructured and skip meals. Hotel Server of impaired eating habits:denies Eating Disorder no [...] Anxiety and depression Asthma No history of [place], COPD, +asthma, peptic ulcer disease, +GERD, dyslipidemia, [...] Adult) Pul (more content not included)... Normal [facility] CULTURE ABSCESSon 09-27-2022 CULTURE ABSCESS Culture [...] F Vancomycin 1 S F Normal [facility] Comment on above: Performed By: #### A [facility] #### [facility] [address] [place] [address] Dr. Magali Phillips AMYLASEon 09-20-2022 Amylase [Catalytic activity/Vol] 33 U/L Normal 25-115 [facility] Comment on above: Performed By: #### A MY, CMP, LIPA #### [facility] [address] [place] [address] Dr. Magali Phillips CBC AUTO DIFFon 09-20-2022 BASO # 0.0 103/ul Normal 0.0-0.1 [facility] Comment on above: Performed By: #### C BC #### [facility] [address] [place] [address] Dr. Magali Phillips Basophils/100 WBC (Bld) 0.2 % Normal 0.2-2.0 [facility] Comment on above: Performed By: #### C BC #### [facility] [address] [place] [address] Dr. Magali Phillips EO # 0.0 103/ul Normal 0.0-0.7 [facility] Comment on above: Performed By: #### C BC #### [facility] [address] [place] [address] Dr. Magali Phillips Eosinophils/100 WBC (Bld) 0.3 % Critically low 0.9-7.0 [facility] Comment on above: Performed By: #### C BC #### [facility] [address] [place] [address] Dr. Magali Phillips Erythrocyte distribution width (RBC) [Ratio] 12.4 % Normal 11.0-15.0 [facility] Comment on above: Performed By: #### C BC #### [facility] [address] [place] [address] Dr. Magali Phillips Hematocrit (Bld) [Volume fraction] 43.8 % Normal 36.0-48.0 [facility] Comment on above: Performed By: #### C BC #### [facility] [address] [place] [address] Dr. Magali Phillips Hemoglobin (Bld) [Mass/Vol] 14.9 g/dL Normal 12.0-16.0 [facility] Comment on above: Performed By: #### C BC #### [facility] [address] [place] [address] Dr. Magali Phillips IG # 0.03 10e3/ul Normal 0.00-0.03 [facility] Comment on above: Performed By: #### C BC #### [facility] [address] [place] [address] Dr. Magali Phillips IG % 0.2 % Normal 0.0-0.5 [facility] Comment on above: Performed By: #### C BC #### [facility] [address] [place] [address] Dr. Magali Phillips LYMPH # 2.6 103/ul Normal 1.2-3.8 [facility] Comment on above: Performed By: #### C BC #### [facility] [address] [place] [address] Dr. Magali Phillips Lymphocytes/100 WBC (Bld) 21.0 % Normal 20.5-60.0 [facility] Comment on above: Performed By: #### C BC #### [facility] [address] [place] [address] Dr. Magali Phillips MANUAL DIFF REQ NO Normal [facility] Comment on above: Performed By: #### C BC #### [facility] [address] [place] [address] Dr. Magali Phillips MCH (RBC) [Entitic mass] 30.2 pg Normal 26.7-34.0 [facility] Comment on above: Performed By: #### C BC #### [facility] [address] [place] [address] Dr. Magali Phillips MCHC (RBC) [Mass/Vol] 34.0 g/dL Normal 29.9-35.2 [facility] Comment on above: Performed By: #### C BC #### [facility] [address] [place] [address] Dr. Magali Phillips MCV (RBC) [Entitic vol] 88.8 fL Normal 81.0-99.0 [facility] Comment on above: Performed By: #### C BC #### [facility] [address] [place], [place] [id number] Dr. Magali Phillips MONO # 1.0 103/ul Critically high 0.3-0.8 [facility] Comment on above: Performed By: #### C BC #### [facility] [address] [place] [address] Dr. Magali Phillips Monocytes/100 WBC (Bld) 8.0 % Normal 1.7-12.0 [facility] Comment on above: Performed By: #### C BC #### [facility] [address] [place] [address] Dr. Magali Phillips NEUT # 8.6 103/ul Critically high 1.4-6.5 [facility] Comment on above: Performed By: #### C BC #### [facility] [address] [place] [address] Dr. Magali Phillips Neutrophils/100 WBC (Bld) 70.3 % Normal 43.0-75.0 [facility] Comment on above: Performed By: #### C BC #### [facility] [address] [place] [address] Dr. Magali Phillips Platelet mean volume (Bld) [Entitic vol] 9.6 fL Normal 9.5-13.5 [facility] Comment on above: Performed By: #### C BC #### [facility] [address] [place] [address] Dr. Magali Phillips PLT 279 103/ul Normal 150-450 The [facility] Comment on above: Performed By: #### C BC #### [facility] [address] [place] [address] Dr. Magali Phillips RBC 4.93 106/ul Normal 4.20-5.40 The [facility] Comment on above: Performed By: #### C BC #### [facility] [address] [place] [address] Dr. Magali Phillips WBC 12.2 103/ul Critically high 4.0-11.0 The [facility] Comment on above: Performed By: #### C BC #### [facility] [address] [place] [address] Dr. Magali Phillips CULTURE URINEon 09-20-2022 CULTURE URINE Culture Observations : MODERATE GROWTH OF MIXED GENITAL DEE. NO POTENTIAL PATHOGENS SEEN. Normal The [facility] Comment on above: Performed By: #### U RCX #### [facility] [address] [place] [address] Dr. Magali Phillips ER URINE PROFILEon 3 Bilirubin Ql (U) Negative Normal NEGATIVE The [facility] Comment on above: Performed By: #### Mulu ESCOBEDO UMICRO #### [facility] [address] [place] [address] Dr. Magali Phillips Clarity (U) CLEAR Normal CLEAR [facility] Comment on above: Performed By: #### E FANNY UMICRO #### [facility] [address] [place] [address] Dr. Magali Phillips Color (U) LT. YELLOW Normal YELLOW [facility] Comment on above: Performed By: #### E FANNY UMICRO #### [facility] [address] [place] [address] Dr. Magali Phillips ERUAHMahnaz A micrscopic examina tion will be performed if indicated. Normal The [facility] Comment on above: Performed By: #### Mulu ESCOBEDO UMICRO #### [facility] [address] [place] [address] Dr. Magali Phillips Glucose Ql (U) Negative Normal NEGATIVE The [facility] Comment on above: Performed By: #### Mulu ESCOBEDO UMICRO #### [facility] [facility] [address] [place] [address] Dr. Magali Phillips Hemoglobin Ql (U) MODERATE Abnormal NEGATIVE The [facility] [place] Comment on above: Performed By: #### E RUBere UMICRO #### [facility] [address] [place] [address] Dr. Magali Phillips Ketones Ql (U) Negative Normal NEGATIVE The [facility] Comment on above: Performed By: #### E RUBere UMICRO #### [facility] [address] [place] [address] Dr. Magali Phillips LEUKOCYTES MODERATE Abnormal NEGATIVE The [facility] Comment on above: Performed By: #### E RAMONAR UMICRO #### [facility] [address] [place] [address] Dr. Magali Phillips Nitrite Ql (U) Negative Normal NEGATIVE [place] Comment on above: Performed By: #### Mulu ESCOBEDO UMICRO #### [facility] [address] [place] [address] Dr. Maglai Phillips pH (U) 5.5 [pH] Normal 5-9 [facility] Comment on above: Performed By: #### Mulu ESCOBEDO UMICRO #### [facility] [address] [place] [address] Dr. Magali Phillips SPEC GRAVITY 1.025 Normal 1.005-<=1.0 25 [facility] Comment on above: Performed By: #### Mulu ESCOBEDO ICRO #### [facility] [address] [place] [address] Dr. Magali Phillips UA PROTEIN Negative Normal NEGATIVE/ TRACE The [facility] Comment on above: Performed By: #### Mulu ESCOBEDO ICRO #### [facility] [address] [place] [address] Dr. Magali Phillips UR MICRO IND INDICATED Normal [facility] Comment on above: Performed By: #### Mulu ESCOBEDO ICRO #### [facility] [address] [place] [address] Dr. Magali Phillips Urobilinogen Qn (U) 0.2 {Nickie'U}/dL Normal 0.2 - 1. 0 [facility] Comment on above: Performed By: #### Mulu ESCOBEDO ICRO #### [facility] [address] [place] [address] Dr. Magali Phillips LIPASEon 09-20-2022 Lipase [Catalytic activity/Vol] 62.0 U/L Critically low 73.0-393.0 [facility] Comment on above: Performed By: #### A MY, CMP, LIPA #### [facility] [address] [place] [address] Dr. Magali Phillips OCC BLD IMMUNO SCREENon 08-24 OCCULT BLOOD Negative Normal NEGATIVE [facility] Comment on above: Performed By: #### O BSCRN #### [facility] [address] [address] [address] Maglai Phillips PROF 14(COMP METB)on 023 Albumin [Mass/Vol] 4.0 g/dL Normal 3.4-5.0 [facility] Comment on above: Performed By: #### A MY, CMP, LIPA #### [facility] [address] [address] [address] Magali Phillips Albumin/Globulin [Mass ratio] 1.0 {ratio} Normal [facility] Comment on above: Performed By: #### A MY, CMP, LIPA #### [facility] [address] [place] [address] Dr. Magali Phillips ALP [Catalytic activity/Vol] 117 U/L Critically high 46-116 [facility] Comment on above: Performed By: #### A MY, CMP, LIPA #### [facility] [address] [address] [address] Magali Phillips ALT [Catalytic activity/Vol] 24 U/L Normal 14-59 [facility] Comment on above: Performed By: #### A MY, CMP, LIPA #### [facility] [address] [address] [address] Magali Phillips Anion gap [Moles/Vol] 12.5 mmol/L Normal [facility] Comment on above: Performed By: #### A MY, CMP, LIPA #### [facility] [address] [address] [address] Magali Phillips AST [Catalytic activity/Vol] 17 U/L Normal 15-37 [facility] Comment on above: Performed By: #### A MY, CMP, LIPA #### [facility] [address] [place] [address] Dr. Magali Phillips Bilirubin [Mass/Vol] 1.0 mg/dL Normal 0.2-1.0 [facility] Comment on above: Performed By: #### A MY, CMP, LIPA #### [facility] [address] [place] [address] Dr. Magali Phillips Calcium [Mass/Vol] 8.8 mg/dL Normal 8.5-10.1 [facility] Comment on above: Performed By: #### A MY, CMP, LIPA #### [facility] [address] [address] [address] Magali Phillips Chloride [Moles/Vol] 106 mmol/L Normal 98-107 [facility] Comment on above: Performed By: #### A MY, CMP, LIPA #### [facility] [address] [address] [address] Magali Phillips CO2 [Moles/Vol] 24.2 mmol/L Normal 21.0-32.0 [facility] Comment on above: Performed By: #### A MY, CMP, LIPA #### [facility] [address] [address] [address] Magali Phillips Creatinine [Mass/Vol] 0.71 mg/dL Normal 0.55-1.02 The [facility] Comment on above: Performed By: #### A MY, CMP, LIPA #### [facility] [address] [address] [address] Magali Phillips EGFR-AF GUINEAN >60 Normal >=60 [facility] Comment on above: Performed By: #### A MY, CMP, LIPA #### [facility] [address] [address] [address] Magali Phillips EGFR-NON AF GUINEAN >60 Normal >=60 The [facility] Comment on above: Performed By: #### A MY, CMP, LIPA #### [facility] [address] [address] [address] Magali Phillips Globulin (S) [Mass/Vol] 4.0 g/dL Normal The [facility] Comment on above: Performed By: #### A MY, CMP, LIPA #### [facility] [address] [address] [address] Magali Phillips Glucose [Mass/Vol] 91 mg/dL Normal 74-106 [facility] Comment on above: Performed By: #### A MY, CMP, LIPA #### [facility] [address] [address] [address] Magali Phillips Potassium [Moles/Vol] 3.7 mmol/L Normal 3.5-5.1 [facility] Comment on above: Performed By: #### A MY, CMP, LIPA #### [facility] [address] [place] [address] Dr. Magali Phillips Protein [Mass/Vol] 8.0 g/dL Normal 6.4-8.2 [facility] Comment on above: Performed By: #### A MY, CMP, LIPA #### [facility] [address] [place] [address] Dr. Magali Phillips Sodium [Moles/Vol] 139 mmol/L Normal 136-145 [facility] Comment on above: Performed By: #### A MY, CMP, LIPA #### [facility] [address] [place] [address] Dr. Magali Phillips Urea nitrogen [Mass/Vol] 8.0 mg/dL Normal 7.0-18.0 The [facility] Comment on above: Performed By: #### A MY, CMP, LIPA #### [facility] [address] [place] [address] Dr. Magali Phillips Urea nitrogen/Creatinine [Mass ratio] 11.3 mg/mg Normal The [facility] Comment on above: Performed By: #### A MY, CMP, LIPA #### [facility] [address] [place] [address] Dr. Magali Phillips URINE MICROSCOPIC ONLYon BACTERIA TRACE Abnormal NONE SEEN The [facility] Comment on above: Performed By: #### Mulu RUR, UMICRO #### [facility] [address] [place] [address] Dr. Magali Phillips Bacteria identified Cx Nom (U) INDICATED Normal The [facility] Comment on above: Performed By: #### E RUR, UMICRO #### [facility] [address] [place] [address] Dr. Magali Phillips CAST SEEN Abnormal NONE SEEN [facility] Comment on above: Performed By: #### E RUR, UMICRO #### [facility] [address] [address] [address] Magali Phillips Crystals LM Nom (Urine sed) NONE SEEN Normal NONE SEEN The [facility] Comment on above: Performed By: #### E RAMONAR, UMICRO #### [facility] [address] [place] [address] Dr. Magali Phillips Epithelial cells LM Ql (Urine sed) FEW Abnormal NONE SEEN /RARE The [facility] Comment on above: Performed By: #### Mulu ESCOBEDO, UMICRO #### [facility] [address] [place] [address] Dr. Magali Phillips HYALINE CAST RARE Normal The [facility] Comment on above: Performed By: #### E FANNY, UMICRO #### [facility] [address] [place] [address] Dr. Magali Phillips MUCOUS NONE SEEN Normal NONE SEEN The [facility] Comment on above: Performed By: #### Mulu ESCOBEDO UMICRO #### [facility] [address] [place] [address] Dr. Magali Phillips RBC 5-10 Abnormal 0-2 The [facility] Comment on above: Performed By: #### Mulu ESCOBEDO UMICRO #### [facility] [address] [place] [address] Dr. Magali Phillips TRICH SEEN Abnormal NONE SEEN [facility] Comment on above: Performed By: #### Mulu ESCOBEDO UMICRO #### [facility] [address] [place] [address] Dr. Magali Phillips WBC 5-10 Abnormal NONE SEEN [facility] Comment on above: Performed By: #### Mulu ESCOBEDO UMICRO #### [facility] [address] [place] [address] Dr. Magali Phillips Urinalysis - AUTOMATEDon Appearance (U) clear [employer] Other Bilirubin Ql (U) Negative [employer] Other Color (U) yellow [employer] Other Glucose Ql (U) Negative [employer] Other Hemoglobin Ql (U) Negative [employer] Other Ketones Ql (U) Negative [employer] Other Leukocyte esterase Test strip Ql (U) trace [employer] Other Nitrite Ql (U) Negative [employer] Other pH (U) 6.5 [pH] [employer] Other Protein Ql (U) Negative [employer] Other Specific gravity (U) [Rel density] 1.025 [employer] Other Urobilinogen (U) [Mass/Vol] 1.0 mg/dL [employer] Other Urinalysis - AUTOMATED [employer] Other Urine Cultureon 07-07-2022 Bacteria identified Cx Nom (U) [employer] Other Automated erythrocytes count in urine sediment (number/area)Ordered By: Michelle Arthur on 07-04-2022 RBC Auto (Urine sed) [#/Area] 3-4 [HPF] 0-[address] [facility] Automated leukocytes count i n urine sediment (number/area)Ordered By: Michelle Arthur on 07-04-2022 WBC Auto (Urine sed) [#/Area] 5-9 [HPF] 0-[address] [facility] Bilirubin Test strip Ql (U)O rdered By: Michelle Arthur on 07-04-2022 Bilirubin Ql (U) Negative Negative [facility] Color Auto (U)Ordered By: Joanne Arthur on 07-04-2022 Color (U) Yellow Yellow [facility] HCG ( test) IA.rapi d Ql (U)Ordered By: Michelle Arthur on 07-04-2022 HCG ( test) Ql (U) Negative [facility] Ketones Auto test strip (U) [Mass/Vol]Ordered By: Michelle Arthur on 07-04-2022 Ketones (U) [Mass/Vol] Negative Negative [facility] Laboratory - UrinalysisOrder ed By: Michelle Arthur on 07-04-2022 Hyaline casts LM Ql (Urine sed) 0-8 [LPF] 0-[address] [facility] Nitrite Test strip Ql (U)Ord ered By: Michelle Arthur on 07-04-2022 Nitrite Ql (U) Negative Negative [facility] Protein Auto test strip (U) [Mass/Vol]Ordered By: Michelle Arthur on 07-04-2022 Protein (U) [Mass/Vol] Negative Negative [facility] Specific gravity Auto test s trip (U) [Rel density]Ordered By: Michelle Arthur on 07-04-2022 Specific gravity (U) [Rel density] 1.016 1.001-1.[address] [facility] Squamous epithelial cells de tection in urine sediment by light microscopyOrdered By: Michelle Arthur on 07-04-2022 Epithelial cells.squamous LM Ql (Urine sed) 1-2 [HPF] 0-[address] [facility] Urine bacteria detection by automated methodOrdered By: Michelle Arthur on 07-04-2022 Bacteria Auto Ql (U) None seen None Seen [facility] Urine clarity by refractomet ry automatedOrdered By: Michelle Arthur on 07-04-2022 Clarity Refractometry automated (U) Clear Clear [facility] Urine culture routineOrdered By: Michelle Arthur on 07-04-2022 Bacteria identified Cx Nom (U) [address] [facility] Urine glucose measurement by automated test strip (mass/volume)Ordered By: Michelle Arthur on 07-04-2022 Glucose Auto test strip (U) [Mass/Vol] Normal mg/dL Normal [facility] Urine hemoglobin detection b y automated test stripOrdered By: Michelle Arthur on 07-04-2022 Hemoglobin Auto test strip Ql (U) Negative Negative [facility] Urine leukocyte esterase det ection by automated test stripOrdered By: Michelle Arthur on 07-04-2022 Leukocyte esterase Auto test strip Ql (U) 2+ Negative [facility] Urobilinogen Auto test strip (U) [Mass/Vol]Ordered By: Michelle Ortizmichelle on 07-04-2022 Urobilinogen (U) [Mass/Vol] Normal mg/dL Normal [facility] pH Auto test strip (U)Ordere d By: Michelle Ortizmichelle on 07-04-2022 pH (U) 7.0 [pH] 5.0-9.[address] [facility] COVID Quick Testingon 2020 Result Negative [employer] Other Vital Signs Date Time Vital Sign Value Performing Clinician Facility 02-09-2025 14:48-0400 Body mass index (BMI) [Ratio] 52.58 kg/m2 Ira Jensen PA Work Phone: [facility] 02-09-2025 14:48-0400 Body weight 134.63 kg Ira Reno PA Work Phone: [facility] 02-09-2025 14:48-0400 Diastolic blood pressure 62 mm[Hg] Ira Camila PA Work Phone: [facility] 02-09-2025 14:48-0400 Systolic blood pressure 100 mm[Hg] Ira Reno PA Work Phone: [facility] 02-07-2025 10:25-0400 Body mass index (BMI) [Ratio] 52.66 kg/m2 Ira Camila PA Work Phone: [facility] 02-07-2025 10:25-0400 Body weight 134.83 kg Ira Reno PA Work Phone: [facility] 02-07-2025 10:25-0400 Diastolic blood pressure 70 mm[Hg] Ira Camila PA Work Phone: [facility] 02-07-2025 10:25-0400 Systolic blood pressure 100 mm[Hg] Ira Reno PA Work Phone: [facility] 02-06-2025 22:42-0400 Body height 157.[address] [facility] 02-06-2025 22:42-0400 Body temperature 98.3 [degF] [facility] 02-06-2025 22:42-0400 Body weight 136.[address] [facility] 02-06-2025 22:42-0400 Diastolic blood pressure 72 mm[Hg] [facility] 02-06-2025 22:42-0400 Heart rate 81 /min [facility] 02-06-2025 22:42-0400 Respiratory rate 22 /min [facility] 02-06-2025 22:42-0400 SaO2% (BldA) [Mass fraction] 98 % [facility] 02-06-2025 22:42-0400 Systolic blood pressure 121 mm[Hg] [facility] 01-19-2025 09:01-0400 Body mass index (BMI) [Ratio] 52.97 kg/m2 Rodrigo Thomas DO Work Phone: [facility] 01-19-2025 09:01-0400 Body weight 135.63 kg Rodrigo Thomas DO Work Phone: [facility] 01-19-2025 09:01-0400 Diastolic blood pressure 76 mm[Hg] Rodrigo Thomas DO Work Phone: [facility] 01-19-2025 09:01-0400 Systolic blood pressure 122 mm[Hg] Rodrigo Thomas DO Work Phone: [facility] 12-19-2024 09:37-0400 Body mass index (BMI) [Ratio] 53.85 kg/m2 Wesley Visci DO Work Phone: [facility] 12-19-2024 09:37-0400 Body weight 137.89 kg Wesley Visci DO Work Phone: [facility] 12-19-2024 09:37-0400 Diastolic blood pressure 72 mm[Hg] Wesley Visci DO Work Phone: [facility] 12-19-2024 09:37-0400 Systolic blood pressure 110 mm[Hg] Wesley Visci DO Work Phone: [facility] 11-15-2024 10:13-0400 Body height 157.[address] [facility] 11-15-2024 10:13-0400 Body mass index (BMI) [Ratio] 54.8 kg/m2 [facility] 11-15-2024 10:13-0400 Body temperature 98.4 [degF] [facility] 11-15-2024 10:13-0400 Body weight 136.[address] [facility] 11-15-2024 10:13-0400 Diastolic blood pressure 63 mm[Hg] [facility] 11-15-2024 10:13-0400 Heart rate 76 /min [facility] 11-15-2024 10:13-0400 SaO2% (BldA) [Mass fraction] 98 % [facility] 11-15-2024 10:13-0400 Systolic blood pressure 109 mm[Hg] [facility] 11-09-2024 10:43-0400 Body temperature 98 [degF] [facility] 11-09-2024 10:43-0400 Diastolic blood pressure 69 mm[Hg] [facility] 11-09-2024 10:43-0400 Heart rate 76 /min [facility] 11-09-2024 10:43-0400 Respiratory rate 18 /min [facility] 11-09-2024 10:43-0400 SaO2% (BldA) [Mass fraction] 98 % [facility] 11-09-2024 10:43-0400 Systolic blood pressure 96 mm[Hg] [facility] 11-07-2024 11:53-0400 Body mass index (BMI) [Ratio] 53.32 kg/m2 Ira ELMORE Work Phone: [facility] 11-07-2024 11:53-0400 Body weight 136.53 kg Ira ELMORE Work Phone: [facility] 11-07-2024 11:53-0400 Diastolic blood pressure 68 mm[Hg] Ira ELMORE Work Phone: [facility] 11-07-2024 11:53-0400 Systolic blood pressure 110 mm[Hg] Ira ELMORE Work Phone: [facility] 02-02-2024 09:22-0400 Body height 157.[address] [facility] 02-02-2024 09:22-0400 Body mass index (BMI) [Ratio] 49.6 kg/m2 [facility] 02-02-2024 09:22-0400 Body temperature 98.1 [degF] [facility] 02-02-2024 09:22-0400 Body weight 123.[address] [facility] 02-02-2024 09:22-0400 Heart rate 81 /min [facility] 02-02-2024 09:22-0400 Respiratory rate 18 /min [facility] 02-02-2024 09:22-0400 SaO2% (BldA) [Mass fraction] 99 % [facility] 01-20-2024 12:01-0400 Body height 157.[address] [facility] 01-20-2024 12:01-0400 Body mass index (BMI) [Ratio] 48.9 kg/m2 [facility] 01-20-2024 12:01-0400 Body temperature 98.3 [degF] [facility] 01-20-2024 12:01-0400 Body weight 121.[address] [facility] 01-20-2024 12:01-0400 Heart rate 107 /min [facility] 01-20-2024 12:01-0400 Respiratory rate 18 /min [facility] 01-20-2024 12:01-0400 SaO2% (BldA) [Mass fraction] 99 % [facility] 11-13-2023 10:26-0400 Body height 157.[address] [facility] 11-13-2023 10:26-0400 Body mass index (BMI) [Ratio] 49 kg/m2 [facility] 11-13-2023 10:26-0400 Body temperature 97.8 [degF] [facility] 11-13-2023 10:26-0400 Body weight 121.[address] [facility] 11-13-2023 10:26-0400 Heart rate 82 /min [facility] 11-13-2023 10:26-0400 SaO2% (BldA) [Mass fraction] 98 % [facility] 09-16-2023 09:45-0400 Body height 157.[address] [facility] 09-16-2023 09:45-0400 Body mass index (BMI) [Ratio] 48.4 kg/m2 [facility] 09-16-2023 09:45-0400 Body temperature 98.6 [degF] [facility] 09-16-2023 09:45-0400 Body weight 120.[address] [facility] 09-16-2023 09:45-0400 Heart rate 51 /min [facility] 09-16-2023 09:45-0400 Respiratory rate 18 /min [facility] 09-16-2023 09:45-0400 SaO2% (BldA) [Mass fraction] 98 % [facility] 03-03-2023 10:45-0400 Heart rate 67 /min Shelly Ly DO Work Phone: [facility] 03-03-2023 10:45-0400 Respiratory rate 12 /min Shelly Ly DO Work Phone: [facility] 03-03-2023 10:45-0400 SaO2% (BldA) [Mass fraction] 100 % Shelly Ly DO Work Phone: [facility] 03-03-2023 10:40-0400 Diastolic blood pressure 72 mm[Hg] Shelly Ly DO Work Phone: [facility] 03-03-2023 10:40-0400 Systolic blood pressure 115 mm[Hg] Shelly Ly DO Work Phone: [facility] 02-04-2023 10:25-0400 Body height 162.[address] Work Phone: [facility] 02-04-2023 10:25-0400 Body weight 113.[address] Work Phone: [facility] 01-19-2023 09:24-0400 Body height 162.2 cm Allie Neo [employer]SF[employer] AND [employer]PER[employer] CHIEF.DIRECTORY OPERATOR Work Phone: [facility] 01-19-2023 09:24-0400 Body weight 114.92 kg Allie Neo TRANSFER AND [employer] OPERATOR CHIEF.DIRECTORY OPERATOR Work Phone: [facility] 01-19-2023 09:24-0400 Diastolic blood pressure 53 mm[Hg] Allie Neo TRANSFER AND [employer] OPERATOR CHIEF.DIRECTORY OPERATOR Work Phone: [facility] 01-19-2023 09:24-0400 Heart rate 84 /min Allie Neo TRANSFER AND [employer] OPERATOR CHIEF.DIRECTORY OPERATOR Work Phone: [facility] 01-19-2023 09:24-0400 Systolic blood pressure 111 mm[Hg] Allie Neo TRANSFER AND [employer] OPERATOR CHIEF.DIRECTORY OPERATOR Work Phone: [facility] 07-07-2022 17:00-0500 Body height 160.02 cm Radhika Enrique Other [employer] Other 07-07-2022 17:00-0500 Body mass index (BMI) [Ratio] 48.35 kg/m2 Radhika Iva Other [employer] Other 07-07-2022 17:00-0500 Body temperature 98 [degF] Radhika Iva Other [employer] Other 07-07-2022 17:00-0500 Body weight 123.83 kg Radhika Iva Other [employer] Other 07-07-2022 17:00-0500 Diastolic blood pressure 60 mm[Hg] Radhika Iva Other [employer] Other 07-07-2022 17:00-0500 Respiratory rate 18 /min Radhika Iva Other [employer] Other 07-07-2022 17:00-0500 SaO2% (BldA) [Mass fraction] 99 % Radhika Enrique Other [employer] [facility] [employer] Other 07-07-2022 17:00-0500 Systolic blood pressure 111 mm[Hg] Radhika Enrique Other [employer] [facility] [employer] Other 07-04-2022 11:16-0500 Body height 160.[address] [facility] 07-04-2022 11:16-0500 Body temperature 97.8 [degF] [facility] 07-04-2022 11:16-0500 Body weight [address] [facility] 07-04-2022 11:16-0500 Diastolic blood pressure 71 mm[Hg] [facility] 07-04-2022 11:16-0500 Heart rate 75 /min [facility] 07-04-2022 11:16-0500 Respiratory rate 22 /min [facility] 07-04-2022 11:16-0500 SaO2% (BldA) [Mass fraction] 100 % [facility] 07-04-2022 11:16-0500 Systolic blood pressure 118 mm[Hg] [facility] 01-27-2022 15:10-0400 Body height 160.02 cm Radhika Enrique Other [employer] [facility] [employer] Other 01-27-2022 15:10-0400 Body mass index (BMI) [Ratio] 46.05 kg/m2 Radhika Enrique Other [employer] [facility] [employer] Other 01-27-2022 15:10-0400 Body temperature 98 [degF] Radhika Jovelmond Other [employer] Other 01-27-2022 15:10-0400 Body weight 117.94 kg Radhika Jovelmond Other [employer] Other 01-27-2022 15:10-0400 Diastolic blood pressure 63 mm[Hg] Radhika Enrique Other [employer] Other 01-27-2022 15:10-0400 Respiratory rate 16 /min Radhika Enrique Other [employer] Other 01-27-2022 15:10-0400 SaO2% (BldA) [Mass fraction] 100 % Radhika Enrique Other [employer] Other 01-27-2022 15:10-0400 Systolic blood pressure 100 mm[Hg] Radhika Enrique Other [employer] Other 11-11-2021 17:30-0400 Body height 160.02 cm Maria R Vacaault Other [employer] Other 11-11-2021 17:30-0400 Body mass index (BMI) [Ratio] 45.52 kg/m2 Maria R Vacaault Other [employer] Other 11-11-2021 17:30-0400 Body temperature 98.2 [degF] Maria R Naif Other [employer] Other 11-11-2021 17:30-0400 Body weight 116.58 kg Maria R Naif Other [employer] Other 11-11-2021 17:30-0400 Diastolic blood pressure 70 mm[Hg] Maria R Naif Other [facility] Other 11-11-2021 17:30-0400 Respiratory rate 16 /min Maria R Naif Other [facility] Other 11-11-2021 17:30-0400 SaO2% (BldA) [Mass fraction] 99 % Maria R Disla Other [facility] Other 11-11-2021 17:30-0400 Systolic blood pressure 114 mm[Hg] Maria R Disla Other [facility] Other 10-14-2021 12:00-0400 Body height 160.02 cm Maria R Disla Other [facility] Other 10-14-2021 12:00-0400 Body mass index (BMI) [Ratio] 46.58 kg/m2 Maria R Disla Other [facility] Other 10-14-2021 12:00-0400 Body temperature 98.2 [degF] Maria R Vacaault Other [facility] Other 10-14-2021 12:00-0400 Body weight 119.3 kg Maria R Disla Other [facility] Other 10-14-2021 12:00-0400 Diastolic blood pressure 68 mm[Hg] Maria R Vacaault Other [facility] Other 10-14-2021 12:00-0400 Respiratory rate 16 /min Maria R Vacaault Other [facility] Other 10-14-2021 12:00-0400 SaO2% (BldA) [Mass fraction] 98 % Maria R Vacaault Other [facility] Other 10-14-2021 12:00-0400 Systolic blood pressure 106 mm[Hg] Maria R Naif Other [facility] Other 03-30-2021 14:45-0400 Body temperature 96.4 [degF] Maria R Disla Other [facility] Other 03-30-2021 14:45-0400 SaO2% (BldA) [Mass fraction] 98 % Maria R Disla Other [facility] Other 03-07-2021 16:55-0400 Body height 160.02 cm Maria R Disla Other [facility] Other 03-07-2021 16:55-0400 Body mass index (BMI) [Ratio] 47.11 kg/m2 Maria R Disla Other [facility] Other 03-07-2021 16:55-0400 Body temperature 97.6 [degF] Maria R Disla Other [facility] Other 03-07-2021 16:55-0400 Body weight 120.66 kg Maria R Disla Other [facility] Other 03-07-2021 16:55-0400 Diastolic blood pressure 71 mm[Hg] Maria R Dsila Other [facility] Other 03-07-2021 16:55-0400 Respiratory rate 18 /min Maria R Disla Other [facility] Other 03-07-2021 16:55-0400 SaO2% (BldA) [Mass fraction] 98 % Maria R Vacaault Other [facility] Other 03-07-2021 16:55-0400 Systolic blood pressure 106 mm[Hg] Maria R Disla Other [facility] Other 02-26-2021 14:00-0400 Body height 160.02 cm Maria R Disla Other [facility] Other 02-26-2021 14:00-0400 Body mass index (BMI) [Ratio] 46.05 kg/m2 Maria R Disla Other [facility] Other 02-26-2021 14:00-0400 Body temperature 97.5 [degF] Maria R Disla Other [facility] Other 02-26-2021 14:00-0400 Body weight 117.94 kg Maria R Disla Other [facility] Other 02-26-2021 14:00-0400 SaO2% (BldA) [Mass fraction] 99 % Maria R Disla Other [facility] Other Encounters Encounter Date Encounter Type Care Provider Facility Start: 02-09-2025 End: 02-09-2025 Office outpatient visit 15 minutes Ira ELMORE Work Phone: [facility] Crystal ESTEBAN Comment on above: 15 weeks gestation o f ([facility]); Second trimester ([facility]); Blood pressure check; Nonintractable headache, unspecified chronicity pattern, unspecified headache type; Nausea Start: 02-09-2025 End: 02-09-2025 Patient encounter status Ira ELMORE Work Phone: [facility] Start: 02-09-2025 End: 02-09-2025 ambulatory IRA JENSEN Not Available Start: 02-09-2025 End: 02-09-2025 Bamboo flowsheet Ira ELMORE Work Phone: [facility] Start: 02-09-2025 End: 02-09-2025 Bamboo flowsheet Ira ELMORE Work Phone: [facility] Start: 02-07-2025 End: 02-07-2025 Bamboo flowsheet Ira ELMORE Work Phone: [facility] Start: 02-07-2025 End: 02-08-2025 Bamboo flowsheet Ira ELMORE Work Phone: [facility] Start: 02-07-2025 End: 02-08-2025 External Result Encounter Ira ELMORE Work Phone: [facility] Unsolicited Start: 02-07-2025 End: 02-07-2025 ambulatory IRA CAMILA Not Available Start: 02-07-2025 End: 02-07-2025 Office outpatient visit 15 minutes Ira ELMORE Work Phone: [facility] Comment on above: Vaginal discharge; Second trimester ([facility]); 15 weeks gestation of ([facility]); Nausea and vomiting in ([facility]) Start: 02-06-2025 End: 02-07-2025 Emergency department patient visit -Emergency Room Work Phone: Start: 01-19-2025 End: 01-19-2025 Bamboo flowsheet Rodrigo Thomas DO Work Phone: [facility] Start: 01-19-2025 End: 01-19-2025 Bamboo flowsheet Rodrigo Thomas DO Work Phone: [facility] Start: 01-19-2025 End: 01-19-2025 Clinisync Result Encounter Carmita Will NP Work Phone: [facility] Unsolicited Start: 01-19-2025 End: 01-19-2025 Office outpatient visit 15 minutes Rodrigo Thomas DO Work Phone: [facility] Comment on above: GA: 12w3d Start: 01-19-2025 End: 01-19-2025 ambulatory RODRIGO GUZMAN Not Available Start: 12-19-2024 End: 12-19-2024 ambulatory [...] 11-15-2024 End: 11-15-2024 Patient encounter procedure Fred Longoria PA -[facility] Work Phone: Start: 11-09-2024 End: 11-09-2024 Patient encounter procedure Rajwinder Murrell APRN -[facility] Work Phone: Start: 11-07-2024 End: 11-07-2024 Bamboo [...] Start: 03-22-2024 End: 03-22-2024 ambulatory MARIA R NAIF Facility:[facility] Start: 02-02-2024 End: 02-02-2024 Departed Referred [facility] [place] Work Phone: Start: 02-02-2024 End: 02-02-2024 ambulatory NON STAFF [facility] Work Phone: Start: 02-02-2024 End: 02-02-2024 Patient encounter procedure [facility] Work Phone: Start: 01-20-2024 End: 01-20-2024 ambulatory NON STAFF [facility] Work Phone: Start: 01-20-2024 End: 01-20-2024 Patient encounter procedure [facility] Work Phone: Start: 11-13-2023 End: 11-13-2023 ambulatory NON STAFF [facility] Work Phone: Start: 11-13-2023 End: 11-13-2023 Patient encounter procedure [facility] Work Phone: Start: 09-16-2023 End: 09-16-2023 ambulatory [facility] Work Phone: Start: 09-16-2023 End: 09-16-2023 Patient encounter procedure [facility] Work Phone: Start: 06-30-2023 End: 06-30-2023 ambulatory MARZENA MARTINEZ Facility:[facility] Start: 04-06-2023 End: 04-06-2023 ambulatory NETTA DILLARD Facility:[facility] Start: 03-12-2023 ambulatory ALLIE ULSTER Facility: [facility] Start: 03-12-2023 End: 03-12-2023 Preprocedural examination done Ultra 2 Work Phone: [facility] Start: 03-12-2023 End: 03-12-2023 Subsequent hospital visit by physician [facility] Work Phone: [facility] Radiology Ultrasound Comment on above: Pre-op evaluation [Z 01.818] Start: 03-03-2023 End: 03-03-2023 ambulatory SHELLY PARSONS Facility:[facility] Start: 03-03-2023 End: 03-03-2023 Subsequent hospital visit by physician Shelly Parsons DO Work Phone: Ambulatory Surgery Comment on above: Class 3 severe obesi ty with serious comorbidity and body mass index (BMI) of 40.0 to 44.9 in adult, unspecified obesity type (HCC) [E66.01, Z68.41] Start: 02-25-2023 ambulatory Nurse Janis [facility] Work Phone: Gastroenterology Comment on above: EGD instructions Start: 02-25-2023 E-mail encounter bam murrell caregiver Nurse Janis [facility] Work Phone: [facility] Start: 02-11-2023 End: 02-12-2023 ambulatory [facility] Facility:[facility] Start: 02-11-2023 End: 02-11-2023 [facility] Facility:[facility] Start: 02-11-2023 Encounter for other preprocedural examination SHELLY PARSONS [facility] Start: 02-11-2023 End: 02-11-2023 Patient encounter procedure Nurse [facility] Work Phone: Cardiology Comment on above: Pre-op evaluation; Class 3 severe obesity with serious comorbidity and body mass index (BMI) of 40.0 to 44.9 in adult, unspecified obesity type (HCC) Start: 02-11-2023 End: 02-11-2023 Preprocedural examination done Nurse Rej Work Phone: [facility] Start: 02-10-2023 Telephone encounter Cece Day [facility] Comment on above: Smoking Cessation Start: 02-04-2023 End: 02-04-2023 ambulatory SASHA XIE Facility:[facility] Start: 02-04-2023 End: 02-04-[address] Work Phone: Nutrition Comment on above: Body mass index (BMI ) 40.0-44.9, adult (HCC) (Primary Dx); Dietary counseling and surveillance Start: 02-04-2023 End: 02-04-2023 Telemedicine consultation with patient Sasha Xie RD Work Phone: [facility] Start: 02-01-2023 [facility] Work Phone: Neurology Start: 01-30-2023 ambulatory [facility] Facility: [facility] Start: 01-30-2023 Encounter for other preprocedural examination [facility] Start: 01-30-2023 End: 01-30-2023 ambulatory [facility] Facility:[facility] Start: 01-30-2023 End: 01-30-2023 Preprocedural examination done [facility] Work Phone: [facility] Start: 01-30-2023 End: 01-30-2023 Subsequent hospital visit by physician [facility] Work Phone: [facility] Radiology General Comment on above: Pre-op evaluation [Z 01.818] Start: 01-19-2023 End: 01-20-2023 [facility] Facility:[facility] Start: 01-19-2023 End: 01-19-2023 Patient encounter procedure Allie Larson TRANSFER AND PUMPHOUSE OPERATOR CHIEF.DIRECTORY OPERATOR Work Phone: General Surgery Comment on above: Pre-op evaluation (P rimary Dx); Class 3 severe obesity with serious comorbidity and body mass index (BMI) of 40.0 to 44.9 in adult, unspecified obesity type (HCC); Vapes nicotine containing substance; Marijuana smoker Start: 01-19-2023 End: 01-19-2023 Preprocedural examination done Allie Larson APRN.DIRECTORY OPERATOR Work Phone: [facility] Work Phone: Start: 09-23-2022 End: 09-23-2022 ambulatory MARIA R NAIF Facility:[facility] Start: 09-20-2022 End: 09-20-2022 ambulatory MARIA R NAIF Facility:[facility] Start: 07-07-2022 End: 07-07-2022 Departed Referred [facility] [place] Work Phone: Start: 07-07-2022 End: 07-07-2022 ambulatory NON STAFF [facility] Work Phone: Start: 07-07-2022 Office outpatient vi sit 25 minutes Radhika Iva [facility] Start: 07-04-2022 End: 07-04-2022 Emergency department patient visit [facility]Emergency Room Work Phone: Start: 06-17-2022 End: 06-17-2022 ambulatory Maria Remily Disla Other [facility] Other Start: 06-17-2022 Telephone encounter Maria R Breaul t [facility] Start: 05-01-2022 End: 05-01-2022 ambulatory MARIA R NAIF Facility:[facility] Start: 03-24-2022 End: 03-24-2022 ambulatory Maria R Naif Other [facility] Other Start: 03-24-2022 Telephone encounter Maria R Breaul t [facility] Start: 01-27-2022 End: 01-27-2022 ambulatory Radhika Iva Other [facility] Other Start: 01-27-2022 Office outpatient vi sit 15 minutes Radhika Iva [facility] Start: 01-14-2022 End: 01-14-2022 ambulatory MARIA R NAIF Facility:[facility] Start: 11-26-2021 End: 11-26-2021 ambulatory Maria R Naif Other [facility] Other Start: 11-26-2021 Office outpatient vi sit 15 minutes Maria R Naif [facility] Start: 11-11-2021 End: 11-11-2021 ambulatory Maria R Naif Other [facility] Other Start: 11-11-2021 Office outpatient vi sit 25 minutes Maria R Naif [facility] Start: 10-28-2021 End: 10-28-2021 ambulatory MARIA R NAIF Facility:[facility] Start: 10-14-2021 End: 10-14-2021 ambulatory Maria R Naif Other [facility] Other Start: 10-14-2021 Office outpatient vi sit 15 minutes Maria R Naif [facility] Start: 08-18-2021 End: 08-18-2021 ambulatory Maria R Naif Other [facility] Other Start: 08-18-2021 Telephone encounter Maria R Breaul t [facility] Start: 06-21-2021 End: 06-21-2021 ambulatory Radhika Iva Other [facility] Other Start: 06-21-2021 Office outpatient vi sit 5 minutes Radhika Iva [facility] Start: 05-28-2021 End: 05-28-2021 ambulatory Maria Remily Disla Other [facility] Other Start: 05-28-2021 Telephone encounter Maria R Breaul t [facility] Start: 04-10-2021 End: 04-10-2021 ambulatory Maria R Naif Other [facility] Other Start: 04-10-2021 Telephone encounter Maria R Breaul t [facility] Start: 03-30-2021 End: 03-30-2021 ambulatory Maria R Naif Other [employer] Other Start: 03-30-2021 Office outpatient vi sit 15 minutes Maria R Disla [facility] Start: 03-07-2021 Office outpatient vi sit 15 minutes Maria R Naif [facility] Start: 02-26-2021 Office outpatient vi sit 15 minutes Maria R Naif [facility] [place] Procedures Date Procedure Procedure Detail Performing Clinician Start: 02-09-2025 Urnls dip stick/tablet rgnt non-auto w/o micrscp Ira ELMORE Work Phone: Start: 02-07-2025 RECURRENT VAGINITIS (HTRX) Ira ELMORE Work Phone: Start: 02-07-2025 Urnls dip stick/tablet rgnt non-auto w/o micrscp Ira ELMORE Work Phone: Start: 01-19-2025 BOX TEST Carmita Will [employer]AMIN[employer] Work Phone: Start: 01-19-2025 Urnls dip stick/tablet rgnt non-auto w/o micrscp Rodrigodarinel Guzman DO Work Phone: Start: 12-19-2024 Chlamydia culture Wesley Browning DO Work Phone: Start: 12-19-2024 Iadna chlamydia trachomatis amplified probe tq Wesley Foley Visci DO Work Phone: Start: 12-19-2024 Urnls dip stick/tablet rgnt non-auto w/o micrscp Wesley Foley Visci DO Work Phone: Start: 11-07-2024 IGP,APTIMA HPV,AGE GDLN Ira ELMORE Work Phone: Start: 01-20-2024 Quick Strep (POC) Start: 11-13-2023 X-ray of right ankle Start: 11-13-2023 X-ray of right foot Start: 03-12-2023 Us abdominal real time w/image limited Allie Larson APRN.DIRECTORY OPERATOR Work Phone: Start: 03-03-2023 Level iv surg pathology gross&microscopic exam Shelly Jaqueline DO Work Phone: Start: 03-03-2023 Esophagogastroduodenoscopy transoral diagnostic Norberto Malone MD Work Phone: Start: 02-11-2023 Ecg routine ecg w/least 12 lds i&r only Allie Larson TRANSFER AND PUMPHOUSE OPERATOR CHIEF.DIRECTORY OPERATOR Work Phone: Start: 01-30-2023 Radiologic exam chest 2 views Allie Lewis son TRANSFER AND PUMPHOUSE OPERATOR CHIEF.DIRECTORY OPERATOR Work Phone: Start: 07-04-2022 Urine culture Plan of Treatment Date Care Activity Detail Author Start: 07-07-2032 Urine microalbumin profile [facility] Start: 03-06-2025 End: 03-06-2025 Patient encounter procedure 03/06/2025 10:00 AM EDT Routine [facility] [address] [place] [id number] Rodrigo Guzman DO [address] [facility] [place] [address] [facility] Start: 02-20-2025 End: 02-20-2025 Patient encounter procedure 02/20/2025 11:30 AM EDT Routine [facility] [address] [place] [phone] Carmita Will, [employer]IN[employer] [address] [place] [id number] [facility] Start: 02-09-2025 End: 02-09-2025 Patient encounter procedure 02/09/2025 2:40 PM EDT Routine [facility] [address] [place] [phone] Ira Jensen, PA [address] [address] Arrived [facility] Comment on above: Arrived Start: 01-23-2025 Influenza vaccination [facility] Start: 01-19-2025 End: 01-19-2025 ambulatory 01/19/2025 8:50 AM EDT Initial [facility] [address] [address] Rodrigo Guzman, DO [address] [place] [address] Arrived [facility] Comment on above: Arrived Start: 01-16-2025 End: 01-16-2025 Patient encounter procedure 01/16/2025 11:45 AM EDT Routine [facility] [address] [place] [phone] Wesley Browning A, DO [address] [place] [address] [facility] Start: 12-19-2024 End: 12-19-2024 ambulatory 12/19/2024 9:15 AM EDT Initial [facility] [address] [place] [phone] ViscWesley alexander A, DO [address] [place] [address] [facility] Start: 12-02-2024 End: 12-02-2025 Bacteria identified in Urine by Culture Urine culture Microbiology Routine Encounter for supervision of normal first in first trimester ([facility]) Expected: 12/02/2024, Expires: 12/02/2025 [facility] Comment on above: Expected: 12/02/2024 , Expires: 12/02/2025 Start: 12-02-2024 End: 12-02-2025 BEACON CARRIER SCREEN;14 GENES BEACON CARRIER SCREEN;14 GENES Lab Routine Screening for genetic disease carrier status Expected: 12/02/2024 (Approximate), Expires: 12/02/2025 [facility] Comment on above: Expected: 12/02/2024 (Approximate), Expires: 12/02/2025 Start: 12-02-2024 End: 12-02-2025 Blood type and Indirect antibody screen panel - Blood Type and screen Lab Routine Encounter for supervision of normal first in first trimester ([facility]) Expected: 12/02/2024, Expires: 12/02/2025 [facility] Comment on above: Expected: 12/02/2024 , Expires: 12/02/2025 Start: 12-02-2024 End: 12-02-2025 CBC W Auto Differential panel - Blood CBC and differential Lab Routine Encounter for supervision of normal first in first trimester ([facility]) Expected: 12/02/2024, Expires: 12/02/2025 [facility] Comment on above: Expected: 12/02/2024 , Expires: 12/02/2025 Start: 12-02-2024 End: 12-02-2025 DRUG SCREEN 17 W/CONF, UR DRUG SCREEN 17 W/CONF, UR Lab Routine Encounter for drug screening Expected: 12/02/2024, Expires: 12/02/2025 [facility] Comment on above: Expected: 12/02/2024 , Expires: 12/02/2025 Start: 12-02-2024 End: 12-02-2025 Hepatitis B virus surface Ag [Presence] in Serum or Plasma by Immunoassay Hepatitis B surface antigen Lab Routine Encounter for supervision of normal first in first trimester ([facility]) Expected: 12/02/2024, Expires: 12/02/2025 [facility] Comment on above: Expected: 12/02/2024 , Expires: 12/02/2025 Start: 12-02-2024 End: 12-02-2025 Hepatitis C virus Ab [Presence] in Serum or Plasma by Immunoassay Hepatitis C antibody Lab Routine Encounter for supervision of normal first in first trimester ([facility]) Expected: 12/02/2024, Expires: 12/02/2025 [facility] Comment on above: Expected: 12/02/2024 , Expires: 12/02/2025 Start: 12-02-2024 End: 12-02-2025 HIV-2 antigen assay HIV-2 antigen Lab Routine Encounter for supervision of normal first in first trimester ([facility]) Expected: 12/02/2024, Expires: 12/02/2025 [facility] Comment on above: Expected: 12/02/2024 , Expires: 12/02/2025 Start: 12-02-2024 End: 12-02-2025 [id number] PLUS Core+SCA [id number] PLUS Core+SCA Lab Routine Encounter for screening for chromosomal anomalies ([facility]) Expected: 12/02/2024 (Approximate), Expires: 12/02/2025 [facility] Comment on above: Expected: 12/02/2024 (Approximate), Expires: 12/02/2025 Start: 12-02-2024 End: 12-02-2025 Rpr (dx) w/refl titer and confirmatory testing Rpr (dx) w/refl titer and confirmatory testing Lab Routine Encounter for supervision of normal first in first trimester ([facility]) Expected: 12/02/2024, Expires: 12/02/2025 [facility] Comment on above: Expected: 12/02/2024 , Expires: 12/02/2025 Start: 12-02-2024 End: 12-02-2025 Rubella antibody, IgG Rubella antibody, IgG Lab Routine Encounter for supervision of normal first in first trimester ([facility]) Expected: 12/02/2024, Expires: 12/02/2025 [facility] Comment on above: Expected: 12/02/2024 , Expires: 12/02/2025 Start: 12-02-2024 End: 12-02-2025 Urinalysis complete panel - Urine Urinalysis with microscopic Lab Routine Encounter for supervision of normal first in first trimester ([facility]) Expected: 12/02/2024, Expires: 12/02/2025 [facility] Work Phone: Comment on above: Expected: 12/02/2024 , Expires: 12/02/2025 Start: 11-07-2024 End: 11-07-2024 Patient encounter procedure 11/07/2024 11:00 AM EDT Office Visit [facility] [address] [place] [address] Ira Jensen PA [address] [place] [address] Arrived [facility] Comment on above: Arrived Start: 02-02-[address] [facility] Start: 01-24-2024 Covid-19 Vaccine ( season) Covid-19 Vaccine ( season) [facility] Start: 01-24-2024 Influenza vaccination Influenza Vacc ine (#1) [facility] Start: 01-23-2023 Influenza vaccination C [facility] Start: 01-19-2023 End: 03-21-2023 25-hydroxyvitamin D3 [Mass/volume] in Serum or Plasma VITAMIN D 25 HYDROXY Lab Routine Pre-op evaluation Class 3 severe obesity with serious comorbidity and body mass index (BMI) of 40.0 to 44.9 in adult, unspecified obesity type (HCC) Expected: 01/19/2023, Expires: 03/21/2023 [facility] Work Phone: Comment on above: Expected: 01/19/2023 , Expires: 03/21/2023 Start: 01-19-2023 End: 03-21-2023 CBC W Auto Differential panel - Blood CBC + DIFF Lab Routine Pre-op evaluation Class 3 severe obesity with serious comorbidity and body mass index (BMI) of 40.0 to 44.9 in adult, unspecified obesity type (HCC) Expected: 01/19/2023, Expires: 03/21/2023 [facility] Work Phone: Comment on above: Expected: 01/19/2023 , Expires: 03/21/2023 Start: 01-19-2023 End: 03-21-2023 Cobalamin (Vitamin B12) [Mass/volume] in Serum or Plasma VITAMIN B12 BLOOD Lab Routine Pre-op evaluation Class 3 severe obesity with serious comorbidity and body mass index (BMI) of 40.0 to 44.9 in adult, unspecified obesity type (HCC) Expected: 01/19/2023, Expires: 03/21/2023 [facility] Work Phone: Comment on above: Expected: 01/19/2023 , Expires: 03/21/2023 Start: 01-19-2023 End: 03-21-2023 Comprehensive metabolic 2000 panel - Serum or Plasma COMP METABOLIC PANEL Lab Routine Pre-op evaluation Class 3 severe obesity with serious comorbidity and body mass index (BMI) of 40.0 to 44.9 in adult, unspecified obesity type (HCC) Expected: 01/19/2023, Expires: 03/21/2023 [facility] Work Phone: Comment on above: Expected: 01/19/2023 , Expires: 03/21/2023 Start: 01-19-2023 End: 03-21-2023 Ferritin [Mass/volume] in Serum or Plasma FERRITIN BLD Lab Routine Pre-op evaluation Class 3 severe obesity with serious comorbidity and body mass index (BMI) of 40.0 to 44.9 in adult, unspecified obesity type (HCC) Expected: 01/19/2023, Expires: 03/21/2023 [facility] Work Phone: Comment on above: Expected: 01/19/2023 , Expires: 03/21/2023 Start: 01-19-2023 End: 03-21-2023 Folate [Mass/volume] in Serum or Plasma FOLATE SERUM Lab Routine Pre-op evaluation Class 3 severe obesity with serious comorbidity and body mass index (BMI) of 40.0 to 44.9 in adult, unspecified obesity type (HCC) Expected: 01/19/2023, Expires: 03/21/2023 [facility] Work Phone: Comment on above: Expected: 01/19/2023 , Expires: 03/21/2023 Start: 01-19-2023 End: 03-21-2023 Hemoglobin A1c in Blood HGB A1C Lab Routine Pre-op evaluation Class 3 severe obesity with serious comorbidity and body mass index (BMI) of 40.0 to 44.9 in adult, unspecified obesity type (HCC) Expected: 01/19/2023, Expires: 03/21/2023 [facility] Work Phone: Comment on above: Expected: 01/19/2023 , Expires: 03/21/2023 Start: 01-19-2023 End: 03-21-2023 Iron and Iron binding capacity panel - Serum or Plasma IRON + TIBC Lab Routine Pre-op evaluation Class 3 severe obesity with serious comorbidity and body mass index (BMI) of 40.0 to 44.9 in adult, unspecified obesity type (HCC) Expected: 01/19/2023, Expires: 03/21/2023 [facility] Work Phone: Comment on above: Expected: 01/19/2023 , Expires: 03/21/2023 Start: 01-19-2023 End: 03-21-2023 Lipid 1996 panel - Serum or Plasma LIPID PANEL BASIC Lab Routine Pre-op evaluation Class 3 severe obesity with serious comorbidity and body mass index (BMI) of 40.0 to 44.9 in adult, unspecified obesity type (HCC) Expected: 01/19/2023, Expires: 03/21/2023 [facility] Work Phone: Comment on above: Expected: 01/19/2023 , Expires: 03/21/2023 Start: 01-19-2023 End: 03-21-2023 Natriuretic peptide.B prohormone N-Terminal [Mass/volume] in Serum or Plasma NT PRO BNP Lab Routine Pre-op evaluation Class 3 severe obesity with serious comorbidity and body mass index (BMI) of 40.0 to 44.9 in adult, unspecified obesity type (HCC) Expected: 01/19/2023, Expires: 03/21/2023 [facility] Work Phone: Comment on above: Expected: 01/19/2023 , Expires: 03/21/2023 Start: 01-19-2023 End: 03-21-2023 NICOTINE & METAB, UR NICOTINE & METAB, UR Lab Routine Pre-op evaluation Class 3 severe obesity with serious comorbidity and body mass index (BMI) of 40.0 to 44.9 in adult, unspecified obesity type (HCC) Expected: 01/19/2023, Expires: 03/21/2023 [facility] Work Phone: Comment on above: Expected: 01/19/2023 , Expires: 03/21/2023 Start: 01-19-2023 End: 03-21-2023 Thyrotropin [Units/volume] in Serum or Plasma TSH BLD Lab Routine Pre-op evaluation Class 3 severe obesity with serious comorbidity and body mass index (BMI) of 40.0 to 44.9 in adult, unspecified obesity type (HCC) Expected: 01/19/2023, Expires: 03/21/2023 [facility] Work Phone: Comment on above: Expected: 01/19/2023 , Expires: 03/21/2023 Start: 01-19-2023 End: 03-21-2023 TOX SCREEN ROUT UR TOX SCREEN ROUT UR Lab Routine Pre-op evaluation Class 3 severe obesity with serious comorbidity and body mass index (BMI) of 40.0 to 44.9 in adult, unspecified obesity type (HCC) Expected: 01/19/2023, Expires: 03/21/2023 [facility] Work Phone: Comment on above: Expected: 01/19/2023 , Expires: 03/21/2023 Start: 01-19-2023 End: 03-21-2023 VITAMIN B1 (THIAMINE), WHOLE BLOOD VITAMIN B1 (THIAMINE), WHOLE BLOOD Lab Routine Pre-op evaluation Class 3 severe obesity with serious comorbidity and body mass index (BMI) of 40.0 to 44.9 in adult, unspecified obesity type (HCC) Expected: 01/19/2023, Expires: 03/21/2023 [facility] Work Phone: Comment on above: Expected: 01/19/2023 , Expires: 03/21/2023 Start: 07-07-2022 Bacteria identified in Urine by Culture [facility] Start: 2022 PAP TESTING PAP TESTING [facility] Start: 2022 Screening for malign ant neoplasm of cervix Cervical Cancer Screening [facility] Start: 2019 ANNUAL PCP TEAM WIRELESS ENGINEER ELLEN DISEASE VISIT ANNUAL PCP TEAM CHRONIC DISEASE VISIT [facility] Start: 2019 CHLAMYDIA SCREENING (18-24) CHLAMYDIA SCREENING (18-24) [facility] Start: 2019 GC (GONORRHEA) SCREE LETICIA (18-24) GC (GONORRHEA) SCREENING (18-24) [facility] Start: 2019 HEPATITIS C SCREENING HEPATITIS C SC REENING [facility] Start: 2019 Hepatitis C screening Hepatitis C Sc sandyleticia [facility] Start: 2019 HIV SCREENING HIV SCREENING [facility] Start: 2019 HIV screening HIV Screening [facility] Start: 2019 Screening for Chlamy melvin trachomatis Chlamydia Screening (18-24) [facility] Start: 2019 SPIROMETRY SPIROMETRY [facility] Start: 2017 Meningococcal B Vacc ine: Consider Based On Risk (1 of 2 - Patient Seeks Protection) Meningococcal B Vaccine: Consider Based On Risk (1 of 2 - Patient Seeks Protection) [facility] Start: 2017 MENINGOCOCCAL B: Consider based on risk (1 of 2 - Patient Seeks Protection) MENINGOCOCCAL B: Consider based on risk (1 of 2 - Patient Seeks Protection) [facility] Start: 2015 PEDS TO ADULT TRANSI TION ANNUAL ASSESSMENT PEDS TO ADULT TRANSITION ANNUAL ASSESSMENT [facility] Start: 2013 PEDS TO ADULT TRANSI TION INITIAL DISCUSSION PEDS TO ADULT TRANSITION INITIAL DISCUSSION [facility] Start: 2007 PNEUMOCOCCAL (1 - PCV) PNEUMOCOCCAL (1 - PCV) [facility] Start: 2007 Pneumococcal vaccination Pneum ococcal Vaccine (1 - PCV) [facility] Start: 2001 COVID-19 VACCINE (#1) COVID-19 VACCI NE (#1) [facility] Atopobium vaginae DN A [Presence] in Vaginal fluid by HANNY with probe detection [facility] Bacterial vaginosis associated bacterium 2 DNA [Presence] in Vaginal fluid by HANNY with probe detection [facility] CHLAMYDIA TRACHOMATI S (GENITO/STI) CHLAMYDIA TRACHOMATIS (GENITO/STI) Lab Routine Vaginal discharge Ordered: 02/07/2025 [facility] Comment on above: Ordered: 02/07/2025 Cytology Cervical or vaginal smear or scraping study Pap Smear Pathology and Cytology Routine Well woman exam with routine gynecological exam Ordered: 11/07/2024 [facility] Work Phone: Comment on above: Ordered: 11/07/2024 End: 01-20-2024 ECG COMPLETE ECG COMPLETE ECG Routine Pre-op evaluation Class 3 severe obesity with serious comorbidity and body mass index (BMI) of 40.0 to 44.9 in adult, unspecified obesity type (HCC) 1 Occurrences starting 01/19/2023 until 01/20/2024 [facility] Work Phone: Comment on above: 1 Occurrences starti ng 01/19/2023 until 01/20/2024 ECG COMPLETE ECG COMPLETE ECG Routine Pre-op evaluation Class 3 severe obesity with serious comorbidity and body mass index (BMI) of 40.0 to 44.9 in adult, unspecified obesity type (HCC) 02/11/2023 8:29 AM EDT [facility] Work Phone: Hemoglobin A1c/Hemoglobin.total in Blood Hemoglobin A1c Lab Routine First trimester ([facility]) 12 weeks gestation of ([facility]) Ordered: 01/19/2025 [facility] [employer] Work Phone: Comment on above: Ordered: 01/19/2025 End: 01-19-2024 HOME SLEEP APNEA TEST (HSAT) HOME SLEEP APNEA TEST (HSAT) Procedures Routine Pre-op evaluation Class 3 severe obesity with serious comorbidity and body mass index (BMI) of 40.0 to 44.9 in adult, unspecified obesity type (HCC) 1 Occurrences starting 01/19/2023 until 01/19/2024 [facility] Work Phone: Comment on above: 1 Occurrences starti ng 01/19/2023 until 01/19/2024 IGP,rfx Apt HPV ASCU,16/18,45 IGP,rfx Apt HPV ASCU,16/18,45 Lab Routine 13 weeks gestation of ([facility]) Screening for malignant neoplasm of cervix Ordered: 12/19/2024 [facility] [employer] Work Phone: Comment on above: Ordered: 12/19/2024 Megasphaera sp type 1 DNA [Presence] in Vaginal fluid by HANNY with probe detection [facility] Neisseria gonorrhoea e DNA [Presence] in Unspecified specimen by HANNY with probe detection Neisseria gonorrhea DNA probe, direct Lab Routine Vaginal discharge Ordered: 02/07/2025 [facility] Comment on above: Ordered: 02/07/2025 Patient Education Sinusitis in adults [facility] Work Phone: Patient referral [facility] Work Phone: End: 02-18-2024 Radiologic exam chest 2 views XR CHEST 2V FRONTAL/LAT Radiology Routine Pre-op evaluation Class 3 severe obesity with serious comorbidity and body mass index (BMI) of 40.0 to 44.9 in adult, unspecified obesity type (HCC) 1 Occurrences starting 01/19/2023 until 02/18/2024 [facility] Work Phone: Comment on above: 1 Occurrences starti ng 01/19/2023 until 02/18/2024 SURESWAB(R) ADVANCED VAGINITIS PLUS, TMA SURESWAB(R) ADVANCED VAGINITIS PLUS, TMA Pathology and Cytology Routine Vaginal discharge Ordered: 02/07/2025 [facility] Work Phone: Comment on above: Ordered: 02/07/2025 End: 02-18-2024 US ABD RIGHT UPPER QUADRANT US ABD RIGHT UPPER QUADRANT Radiology Routine Pre-op evaluation Class 3 severe obesity with serious comorbidity and body mass index (BMI) of 40.0 to 44.9 in adult, unspecified obesity type (HCC) 1 Occurrences starting 01/19/2023 until 02/18/2024 [facility] Work Phone: Comment on above: 1 Occurrences starti ng 01/19/2023 until 02/18/2024 [facility] Immunizations Immunization Date Immunization Notes Care Provider Patty miramontes 07-07-2022 tetanus toxoid, redu himanshu diphtheria toxoid, and acellular pertussis vaccine, adsorbed Maria R Disla Other [facility] Work Phone: 04-07-2020 influenza, injectabl e, quadrivalent, contains preservative Allie Larson APRN.CNP Work Phone: [facility] Work Phone: 04-07-2020 influenza virus vacc ine, unspecified formulation [facility] 03-14-2019 influenza, injectabl e, quadrivalent, contains preservative Maria R Disla Other [facility] Work Phone: 03-14-2019 influenza, injectabl e, quadrivalent, preservative free [facility] 09-13-2018 meningococcal oligosaccharide (groups A, C, Y and W-135) diphtheria toxoid conjugate vaccine (MCV4O) Allie Larson TRANSFER AND PUMPHOUSE OPERATOR CHIEF.[facility] Work Phone: [facility] Work Phone: 02-21-2014 influenza, seasonal, injectable Allie Larson TRANSFER AND PUMPHOUSE OPERATOR CHIEF.[facility] Work Phone: [facility] Work Phone: 07-07-2013 hepatitis A vaccine, pediatric/adolescent dosage, 2 dose schedule Allie Larson TRANSFER AND PUMPHOUSE OPERATOR CHIEF.[facility] Work Phone: [facility] Work Phone: 07-07-2013 meningococcal polysaccharide (groups A, C, Y and W-135) diphtheria toxoid conjugate vaccine (MCV4P) Allie Larson TRANSFER AND PUMPHOUSE OPERATOR CHIEF.[facility] Work Phone: [facility] Work Phone: 07-07-2013 tetanus toxoid, redu himanshu diphtheria toxoid, and acellular pertussis vaccine, adsorbed Allie Larson TRANSFER AND PUMPHOUSE OPERATOR CHIEF.[facility] Work Phone: [facility] Work Phone: 03-16-2013 Human Papillomavirus 9-valent vaccine Allie Larson TRANSFER AND PUMPHOUSE OPERATOR CHIEF.DIRECTORY OPERATOR Work Phone: [facility] Work Phone: 03-16-2013 influenza, injectabl e, quadrivalent, preservative free Allie Larson TRANSFER AND PUMPHOUSE OPERATOR CHIEF.DIRECTORY OPERATOR Work Phone: [facility] Work Phone: 10-08-2011 Human Papillomavirus 9-valent vaccine Allie Neo TRANSFER AND PUMPHOUSE OPERATOR CHIEF.DIRECTORY OPERATOR Work Phone: [facility] Work Phone: 07-03-2011 Human Papillomavirus 9-valent vaccine Allie Larson TRANSFER AND PUMPHOUSE OPERATOR CHIEF.DIRECTORY OPERATOR Work Phone: [facility] Work Phone: 03-01-2008 hepatitis A vaccine, pediatric/adolescent dosage, 2 dose schedule Allie Larson APRN.[facility] Work Phone: [facility] Work Phone: 03-01-2008 varicella virus vaccine Cammie Larson APRN.DIRECTORY OPERATOR Work Phone: [facility] Work Phone: 05-20-2005 influenza, seasonal, injectable Allie Larson APRN.DIRECTORY OPERATOR Work Phone: [facility] Work Phone: 04-11-2005 influenza, seasonal, injectable Allie Larson APRN.[facility] Work Phone: [facility] Work Phone: 01-16-2005 diphtheria, tetanus toxoids and acellular pertussis vaccine, 5 pertussis antigens Allie Larson APRN.[facility] Work Phone: [facility] Work Phone: 01-16-2005 measles, mumps and rubella virus vaccine Allie Larson APRN.DIRECTORY OPERATOR Work Phone: [facility] Work Phone: 01-16-2005 poliovirus vaccine, inactivated Allie Larson APRN.DIRECTORY OPERATOR Work Phone: [facility] Work Phone: 06-27-2002 diphtheria, tetanus toxoids and acellular pertussis vaccine Allie Larson APRN.[facility] Work Phone: [facility] Work Phone: 06-27-2002 haemophilus influenz ae type b vaccine, PRP-T conjugate Allie Larson APRN.DIRECTORY OPERATOR Work Phone: [facility] Work Phone: 02-02-2002 measles, mumps and rubella virus vaccine Allie Larson APRN.DIRECTORY OPERATOR Work Phone: [facility] Work Phone: 02-02-2002 varicella virus vaccine Cammie Larson APRN.[facility] Work Phone: [facility] Work Phone: 2001 diphtheria, tetanus toxoids and acellular pertussis vaccine, unspecified formulation Allie Neo TRANSFER AND PUMPHOUSE OPERATOR CHIEF.[facility] Work Phone: [facility] Work Phone: 2001 haemophilus influenz ae type b conjugate and Hepatitis B vaccine Allie Neo TRANSFER AND PUMPHOUSE OPERATOR CHIEF.DIRECTORY OPERATOR Work Phone: [facility] Work Phone: 2001 poliovirus vaccine, inactivated Allie Neo TRANSFER AND PUMPHOUSE OPERATOR CHIEF.DIRECTORY OPERATOR Work Phone: [facility] Work Phone: 2001 diphtheria, tetanus toxoids and acellular pertussis vaccine, unspecified formulation Allie Neo TRANSFER AND PUMPHOUSE OPERATOR CHIEF.[facility] Work Phone: [facility] Work Phone: 2001 haemophilus influenz ae type b conjugate and Hepatitis B vaccine Allie Neo TRANSFER AND PUMPHOUSE OPERATOR CHIEF.[facility] Work Phone: [facility] Work Phone: 2001 pneumococcal conjuga te vaccine, 7 valent Allie Neo TRANSFER AND PUMPHOUSE OPERATOR CHIEF.[facility] Work Phone: [facility] Work Phone: 2001 poliovirus vaccine, inactivated Allie Neo TRANSFER AND PUMPHOUSE OPERATOR CHIEF.DIRECTORY OPERATOR Work Phone: [facility] Work Phone: 2001 diphtheria, tetanus toxoids and acellular pertussis vaccine, unspecified formulation Allie Neo TRANSFER AND PUMPHOUSE OPERATOR CHIEF.DIRECTORY OPERATOR Work Phone: [facility] Work Phone: 2001 haemophilus influenz ae type b conjugate and Hepatitis B vaccine Allie Neo TRANSFER AND PUMPHOUSE OPERATOR CHIEF.[facility] Work Phone: [facility] Work Phone: 2001 pneumococcal conjuga te vaccine, 7 valent Allie Neo TRANSFER AND PUMPHOUSE OPERATOR CHIEF.DIRECTORY OPERATOR Work Phone: [facility] Work Phone: 2001 poliovirus vaccine, inactivated Allie Neo TRANSFER AND PUMPHOUSE OPERATOR CHIEF.DIRECTORY OPERATOR Work Phone: [facility] Work Phone: Payers Date Payer Category Payer Self-pay [id number] 2022 Medicaid [id number] 2001 Unknown [id number] 2.16.84 [id number] 2001 Unknown [id number] 2.16.84 [id number] 2001 Unknown [id number] 2.16.84 [id number] 2001 Unknown [id number] 2.16.84 [id number] 2001 Unknown [id number] 2.16.84 [id number] 2001 Unknown [id number] 2.16.8 [id number] 2001 Unknown [id number] 2.16.8 [id number] 2001 Unknown [id number] 2.16.8 40.1.999945.3.579.2.1259 2001 Unknown [id number] 2.16.8 40.1.751992.3.579.2.1259 2001 Unknown [id number] 2.16.8 [id number] 2001 Unknown [id number] 2.16.8 40.1.472039.3.579.2.1259 2001 Unknown [id number] 2.16.8 [id number] 2001 Unknown [id number] 2.16.8 [id number] 2001 Unknown [id number] 2.16.8 [id number] 1959 Medicaid [id number] 1959 Unknown [id number] 2.1 [id number] Medicaid [id number] Medicaid [id number] 2. [id number] Unknown [id number] 2.1 [id number] Unknown [id number] 2.16.8 [id number] Social History Date Type Detail Facility Unknown if ever smoked [facility] Other Start: 01-19-2023 End: 12-19-2024 Sex Assigned At [facility] Other Start: 07-04-2022 End: 01-20-2024 Tobacco smoking status INIS Smoker (finding) [facility] Start: 2001 Sex Assigned At Female [facility] Start: 01-19-2023 End: 12-02-2024 Tobacco smoking status INIS Never smoked tobacco [facility] Work Phone: Start: 01-19-2023 End: 12-02-2024 Tobacco use and exposure Smokeless tobacco non-user [facility] Work Phone: Start: 01-19-2023 End: 03-03-2023 Alcohol intake Current drinker of alcohol (finding) [facility] Start: 01-19-2023 End: 12-19-2024 History of Social function [facility] National Score (1-10 0), lower number is lower risk 76 [facility] Start: 01-19-2023 Tobacco Comment vaping [facility] Start: 01-19-2023 Alcohol Comment once a month [facility] Start: 01-17-2023 Gender identity Identifies as female gender (finding) [facility] Start: 01-17-2023 Sexual orientation Bisexual (finding) [facility] Start: 03-03-2023 Tobacco Comment vaping- Quit 02/02/23 [facility] Tobacco smoking stat us NHIS Tobacco smoking consumption unknown [facility] Start: 2001 Sex assigned at Not on file [facility] Start: 12-02-2024 End: 02-09-2025 Alcoholic beverage intake Ex-drinker (finding) [facility] Start: 12-02-2024 Alcohol Comment caffeine intake: none [facility] Start: 10-02-[address] [facility] Sex Female (finding) [facility] Goals Date Patient Goal Desired Activity /State Personal health goal Clinical Notes 02-26-2021 to 02-09-2025 RAMÍREZ Castle - 02/09/2025 2:40 PM RAMÍREZ Mathews - 02/07/2025 9:50 AM Kasandra He, SHOE LAY OUT PLANNER - 01/19/2025 8:50 AM Billy Browning DO - 12/19/2024 9:15 AM EDT Note Date & Type Note Facility 02-09-2025 History of Presen t illness Narrative Reason [...] Vitals: Estimated body mass index is 52.58 kg/m as calculated from the following: Height as of 12/08/22: 5' 3 . Weight as of this encounter: 296 lb 12.8 oz. BP: 100/62 Patient's last menstrual period was 09/18/2024. ASSESSMENT & PLAN ICD-10-CM 1. 15 weeks gestation of ([facility]) Z3A.15 POCT urinalysis dipstick manually resulted 2. Second trimester ([facility]) Z34.92 POCT urinalysis dipstick manually resulted 3. [...] of: RAMÍREZ Castle documented in this encounter [facility] 02-07-2025 History of Presen t illness Narrative [...] gonorrhea DNA probe, direct 2. Second trimester ([facility]) Z34.92 3. 15 weeks gestation of ([facility]) Z3A.15 4. Nausea and vomiting in ([facility]) O21.9 magnesium oxide (Mag-Ox) 400 MG [...] of: RAMÍREZ Castle documented in this encounter [facility] 01-19-2025 History of Presen t illness Narrative [...] nursing note reviewed. Exam conducted with a ur coordinator present. Vitals: Estimated body mass index is 52.97 kg/m as calculated from the following: Height as of 12/08/22: 5' 3 . Weight as of this encounter: 299 lb. BP: 122/76 Patient's last menstrual period was 09/18/2024. ASSESSMENT & PLAN ICD-10-CM 1. First trimester ([facility]) Z34.91 POCT urinalysis dipstick manually resulted 2. 12 weeks gestation of ([facility]) Z3A.12 New OB: Patient presents for transfer [...] or undercooked meat, and stay away from [facility]. Patient has been consulted regarding any further [...] Rodrigo Guzman DO documented in this encounter [facility] 12-19-2024 History of Presen t illness Narrative [...] supervision of normal first in first trimester ([facility]) Z34.01 2. 13 weeks gestation of ([facility]) Z3A.13 POCT URINALYSIS [address]/NG IGP,rfx Apt HPV ASCU,16/18,45 3. Screen for sexually transmitted diseases Z11.[address]/NG 4. Herpes simplex type 2 infection complicating , first trimester ([facility]) O98.511 B00.9 5. Severe obesity due to excess calories affecting in first trimester ([facility]) O99.211 E66.01 6. Screening for malignant neoplasm of cervix Z12.4 IGP,rfx Apt HPV ASCU,16/18,45 7. Nausea and vomiting during ([facility]) O21.9 She is here for routine [...] in 4 weeks. documented in this encounter [facility] 12-02-2024 History of Presen t illness Narrative [...] of estimated date of delivery No Thalassemia (Czech, Nepali, Mediterranean, or background): MCV less than 80 No Neural tube defect (Meningomyelocele, Spina bifida, or Anencephaly) No Down syndrome No Yusuf-Sachs (Ashkenazi Mandaen, Cajun, Japanese [place]) No Leoncio disease (Ashkenazi Mandaen) No Familial dysautonomia (Ashkenazi Mandaen) No Sickle cell disease or trait () No Hemophilia or other blood disorders No Muscular dystrophy No Cystic fibrosis No [place]'s chorea No Other inherited genetic or chromosomal [...] 12/02/2024 12:05 PM documented in this encounter [facility] 11-09-2024 Evaluation note Diagnosis Onset Date Resolution Acute bacterial sinusitis noneactive November 09, 2024 10:32am Shingles acute November 15 10:05am [facility] Work Phone: 1(157) 376-858706-16-2025 History of Present illness Narrative* RAMÍREZ Castle [...] nursing note reviewed. Exam conducted with a ur coordinator present. Vitals: Estimated body mass index is [...] behalf of: RAMÍREZ Castle [facility]cwswnfdt21-05-8945 NoteHNO ID: [id number] Author: Netta Dillard, PhD Service: ? Author Type: Psychologist Type: Progress Notes Filed: 04/07/2023 7:48 AM Note Text: [facility] Bariatric Behavioral Services Progress Note April 06, 2023 Patient was a no-show. Netta Dillard, Ph.D. [facility] History and physical note* Shelly Parsons [...] MAC Additional Comments: None Shelly Parsons DO [facility] Work Phone: 1(418) 180-402610-10-2023 History and physical note* Shelly Parsons DO - 03/03/2023 3:00 PM EDT HISTORY AND PHYSICAL Saroj Membreno 23 year old female Current history and [...] None Shelly Parsons DO [facility] Note* Meghann Kwan RN - 03/03/2023 [...] Meghann Escalante RN In Department: AMBULATORY SURGERY [facility]10-10-2023 Nurse Note* Meghann Kwan RN - 03/03/2023 [...] In Department: AMBULATORY SURGERY [facility] Nurse Note* Bia Price RN - 03/03/2023 [...] Bia Price RN In Department: AMBULATORY SURGERY [facility]10-04-2023 Miscellaneous Notes* Telephone Encounter - Mary Alice Clark Ma - 02/25/2023 4:26 PM EDT Lm to confirm procedure for 03-03-23 [facility]23 NoteHNO ID: [id number] Author: Eugenia Chaudhary Service: ? Author Type: ? Type: Progress Notes Filed: 02/16/2023 1:25 PM Note Text: Sleep Study Check-In Documentation Date: February 16, 2023 Name: Saroj Membreno Comments: HST was returned in working order with all sleep questionnaires [facility] History of Present illness Narrative* Eugenia [...] Auth. provider HOME SLEEP APNEA TEST (HSAT) [[id number]] 01/19/23 Allie Larson APRN.DIRECTORY OPERATOR Assoc. diagnoses: Pre-op evaluation [Z01.818], Class 3 [...] Special instructions: None-follow laboratory protocol [facility] Staff Note: I have read the above protocol, edited as needed, and agree to the plan. Kelvin Gabriel III, PhD 12:15 PM, 02/11/2023 * Temo Torres - 02/10/2023 9:56 PM EDT [employer]# [id number] +GPS , Date shipped out: 02/11/23 SENT FEDEX DELIVERY - FEDEX RETURN Tracking mailout: [id number] [id number] Tracking return: [id number] [id number] * Katharina Blood - 02/01/2023 8:23 AM EDT February 01, 2023 An order has been received for Home Sleep Apnea Test (HSAT) from [facility] APRN.harley NGUYỄN. [facility] Staff. Visit prep complete. Comments :No The sleep study is scheduled for 02/21. Insurance: Payor: [place] [employer] / Plan: [facility] / Product Type: Medicaid / Payer/Plan Subscr Sex Relation Sub. Ins. ID Effective Group Num 1. [employer] MEDICA* SAROJ MEMBRENO 01 Female Self [id number] [birth year] [address] Katharina Blood documented in this encounterHocking Valley [facility]09-21-2023 NoteHNO ID: [id number] Author: Netta Dillard, PhD Service: ? Author Type: Psychologist Type: Progress Notes Filed: 02/18/2023 12:31 PM Note Text: [facility] Bariatric Behavioral Services Progress Note February 16, 2023 Patient cancelled today's appt. Netta Dillard, Ph.D. PsychologistDetwiler Memorial Hospital09-20-2023 NoteHNO ID: [id number] Author: Kelvin Gabriel III, PhD Service: ? Author Type: Physician Type: Progress Notes Filed: 02/16/2023 1:25 PM Note Text: February 11, 2023 Standing PSG Orders signed in the last 90 days None Future PSG Orders signed in the last 90 days Ordered Auth. provider HOME SLEEP APNEA TEST (HSAT) [[id number]] 01/19/23 Allie Larson APRN.DIRECTORY OPERATOR Assoc. diagnoses: Pre-op evaluation [Z01.818], Class 3 [...] Special instructions: None-follow laboratory protocol [facility] Staff Note: I have read the above protocol, edited as needed, and agree to the plan. Kelvin Gabriel III, PhD 12:15 PM, 02/11/2023[facility]09-20-[facility] Nurse Note* Roya Lawler, RN - 02/11/2023 8:33 AM EDT Ekg completed. Pt with no voiced complaints. Provider cc'd of completion. documented in this encounterHocking Valley Community Hospital09-19-2023 NoteHNO ID: [id number] Author: Temo Torres Service: ? Author Type: ? Type: Progress Notes Filed: 02/16/2023 1:25 PM Note Text: Nomad# [id number] +GPS , Date shipped out: 02/11/23 SENT FEDEX DELIVERY - FEDEX RETURN Tracking mailout: [phone] Tracking return: [phone] [id number]09-19-2023 Instructions * Patient Instructions* Sasha Xie RD - 02/10/2023 1:39 PM EDT NUTRITION CARE PLAN Nutrition Intervention 02/04/2023: Modify type and amount of food consumed at meals and snacks Before your next visit, read the Nutritional Guidelines section of Your Guide to Surgery. [email or web address]/departments/bariatric/patient-education/videos-gu ides#guides-tab 2. Drink 64 oz of fluids [...] Slim Fast Advanced Nutrition (20 grams protein) Labelle Breakfast Essentials Light Start mixed with 1%/skim milk Atkins Protein Shake (15 gm protein version) Boost Glucose Control (16 grams protein) OWYN (20 gm protein and 180 calories version) 5. You need 79 grams of protein every day. Have a protein food with all meals and snacks. Get your protein from: lean meat, fish, eggs, low-fat dairy (cottage/ricotta cheese, malagasy/light yogurt, cheese), nuts, nut butters, beans/legumes. 6. [...] Follow up: 2-4 weeks documented in this encounterHocking Valley Community Hospital09-19-2023 Miscellaneous Notes* Telephone Encounter - Allie Larson APRN.CNP - 02/10/2023 11:32 AM EDT Noted, thank you * [facility] En[facility]10/[facility]23 10:11 AM EDT Smoking Cessation Navigation Outcome of contact: Spoke with Intervention Chosen By Patient: Other Comments: Patient quit last week. eHealth Beverage Manager/Smoking Cessation Navigator: [facility] documented in this encounterHocking Valley Community Hospital09-13-2023 NoteHNO ID: [id number] Author: Sasha Xie RD Service: ? Author Type: Registered Dietitian Type: Progress Notes Filed: 02/10/2023 1:40 PM Note Text: Nutrition Therapy Initial Assessment I have communicated my name and active licensure. The patient?s identity and physical location were verified at the time of this visit. Either the patient or their legal community service representative has been informed of the [...] Guidelines section of Your Guide to Surgery. [email or web address]/departments/[email or web address]/patient-education/vide os-guides#guides-tab 2. Drink 64 oz of fluids [...] Slim Fast Advanced Nutrition (20 grams protein) Labelle Breakfast Essentials Light Start mixed with 1%/skim milk Atkins Protein Shake (15 gm protein version) Boost Glucose Control (16 grams protein) OWYN (20 gm protein and 180 calories version) 5. You need 79 grams of protein every day. Have a protein food with all meals and snacks. Get your protein from: lean meat, fish, eggs, low-fat dairy (cottage/ricotta cheese, malagasy/light yogurt, cheese), nuts, nut butters, beans/legumes. 6. [...] guidelines for weight loss surgery and has [employer] therefore is required to complete 0 months of Nutrition Intervention for clearance for surgery. Today is visit #1 ([place] 02/04/2023). Patient meets the National Institutes of Health guidelines for weight loss surgery however, needs to demonstrate consistent effort in making dietary changes before being cleared for surgery. (more content not included)...[facility] [id number] History of Present illness Narrative* Sasha Xie, LUZ - 02/04/2023 10:26 AM EDT Nutrition Therapy Initial Assessment I have communicated my name and active licensure. The patient s identity and physical location wereverified at the time of this visit. Either the patient or their legal community service representative has been informed of the [...] Slim Fast Advanced Nutrition (20 grams protein) Labelle Breakfast Essentials Light Start mixed with 1%/skim milk Atkins Protein Shake (15 gm protein version) Boost Glucose Control (16 grams protein) OWYN (20 gm protein and 180 calories version) 5. You need 79 grams of protein every day. Have a protein food with all meals and snacks. Get your protein from: lean meat, fish, eggs, low-fat dairy (cottage/ricotta cheese, malagasy/light yogurt, cheese), nuts, nut butters, beans/legumes. 6. [...] guidelines for weight loss surgery and has [employer] therefore is required to complete 0 [...] ,cheese, kaden, sour cream, taco sauce OR latvian chicken w/ mexical rice and corn/green beans Snack - 3x week - pretzels and nutella Beverages - water 10-12 c/day, 2-3x week lemonade/vitamin water, chocolate milk Alcohol - none/occ Vitamins/Supplements - none Restaurants, pick-up, take-out: 3-4x week - Chick File, [place], [place] Activity: Activities of Daily Living: Active 50% of the day. 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 Author Type: ? Type: Progress Notes Filed: 02/16/2023 1:25 PM Note Text: February 01, 2023 An order has been received for Home Sleep Apnea Test (HSAT) from Allie Sales APRN.harley NGUYỄN. [facility] Staff. Visit prep complete. Comments :No The sleep study is scheduled for 02/21. Insurance: Payor: [employer] MEDICAID / Plan: [employer] Holdings[employer] MEDICAID [facility] / Product Type: Medicaid / Payer/Plan Subscr Sex Relation Sub. Ins. ID Effective Group Num 1. AN[employer]M MEDICA* SAROJ MEMBRENO 01 Female Self [id number] [birth year] [address] Katharina [facility]09-08-2023 NoteHNO ID: [id number] Author: Cathie Ford RT(Bere) Service: Radiology Author Type: Relay Repairer Type: Progress Notes Filed: 01/30/2023 10:50 AM [...] BY: RT Enrrique(R) January 30, 2023 10:47 AMUniversity Of Utah [id number] NoteHNO ID: [id number] Author: Norberto Malone MD Service: ? Author Type: Physician Type: Progress Notes Filed: 01/30/2023 3:35 PM Note Text: Assessment NEW BARIATRIC PATIENT PATIENT NAME: Saroj Membreno REASON FOR CONSULT: Morbid Obesity REQUESTING PHYSICIAN: Osbaldo DATE of SERVICE: 01/29/2023 TIME of SERVICE: [...] goal weight prior to liquid fast: Per new order clerk Surgically Cleared with completion of the below: [...] Risks of nicotine befor (more content not included)...[facility]09-08-2023 History of Present illness Narrative* Cathie Ford RT(R) - 01/30/2023 10:40 AM EDT [...] IV DATA: Not applicable SIGNED BY: RT Enrrique(Bere) January 30, 2023 10:47 AM documented in this encounterHocking Valley Community Hospital08-28-2023 NoteHNO ID: [id number] Author: Allie Larson APRN.DIRECTORY OPERATOR Service: ? Author Type: Nurse Practitioner Type: [...] Characterization of diet: Unstructured and skip meals. Hotel Server of impaired eating habits:denies Eating Disorder no [...] Anxiety and depression Asthma No history of MO, COPD, +asthma, peptic ulcer disease, +GERD, dyslipidemia, [...] HEENT:: Supple, no adenopath (more content not included)...[facility]08-28-2023 Instructions* Patient Instructions* Allie Larson APRN.[facility] - 01/19/2023 9:16 AM EDT Darron Membreno , Thank you for completing your visit today and we welcome you to the surgical program. We are sure that you will still have some additional questions and encourage you to reach out to your care provider via [employer] OR your Patient Navigator. Patient Navigators are [...] free to ask for a hard copy. [email or web address].[email or web address]/-/[email or web address]/org/[email or web address]/[email or web address]/[email or web address] [email or web address]?la=en Once you complete all of the requirements (testing, consultations, diet, etc) from each provider, please call [phone] and select option #5 to initiate insurance approval. Also, if you have any questions along the way, we encourage you to join our weekly Navigation webinar every Thursday from 12:00 pm - 1:00 pm. This webinar will give you an opportunity to chat with your patient navigator and learn about your specific program requirements. The link for this webinar isbelow: [email or web address] Please note scheduling information It is important to keep track of your scheduled appointments to ensure successful completion of oursurgical program. Any missed appointments can further delay your pre-surgical work-up. [facility] does offer an opt-in option for getting text message appointment reminders. Please follow the link below if you would like to opt into this service. [email or web address]#[email or web address] [email or web address] As part of your surgical work up, [...] these tests. You may call your local [facility] to get an appointment. - Lab work- No appointment is needed for this, you may complete at any [facility] Laboratory.These are usually fasting labs, please be sure to fast (only water permitted) for 10-12 hours priorto the test. -Sleep Study- Please call [phone] or [phone] to get this appointment set up. -Sleep Medicine Consult- (Only needed if sleep study confirms sleep apnea) Please call [phone] [phone] to schedule an appointment. URINE TESTING AFTER [...] at least 1 month, go to any [facility] lab and submityour first nicotine screen. ?The [...] Any testing that is completed outside of [facility] will need faxed to [phone]. We look forward to working with you on this journey, Allie Larson APRN.DIRECTORY OPERATOR documented in this encounterHocking Valley Community Hospital08-28-2023 History of Present illness Narrative* Allie Larson [...] Characterization of diet: Unstructured and skip meals. Hotel Server of impaired eating habits:denies Eating Disorder no [...] Anxiety and depression Asthma No history of MO, COPD, +asthma, peptic ulcer disease, +GERD, dyslipidemia, [...] at least 1 month, go to any [facility] lab and submityour first nicotine screen. ?The [...] and provide medicine clearance via letter in [facility]. I spent a total of 50 minutes on the date of the service which included preparing to see the patient, [id number] patient care, completing clinical documentation, obtaining and/or reviewing separately obtained history, counseling and educating the patient/family/caregiver, and ordering medications, tests, or procedures. Allie Larson, MSN, TRANSFER AND PUMPHOUSE OPERATOR CHIEF, SKEINS YARN EXAMINER-C [facility] [place] [address] [place] [address] documented in this encounterHocking Valley Community Hospital02-13-2023 Evaluation note* Encounter Date Diagnosis Assessment Notes [...] concerns Jun, Urinary frequency (ICD-10 - R35.0) [facility] Other 01-24-2023 Evaluation note* Encounter Date Diagnosis Assessment Notes Treatment Notes Treatment Clinical Notes May, Generalized anxiety disorder (ICD-10 - F41.1) [facility] Other 10-31-2022 Evaluation note* Encounter Date Diagnosis Assessment Notes Treatment Notes Treatment Clinical Notes Feb, Muscle pain (ICD-10 - M79.10) Feb, PILO (generalized anxiety disorder) (ICD-10 - F41.1) [facility] Other 09-05-2022 Evaluation note* Encounter Date Diagnosis Assessment Notes Treatment Notes Treatment Clinical Notes Jan, Herpes zoster without complication (ICD-10 - B02.9) Shingles home care material was printed Drink plenty fluids, get plenty of rest. Take the Valtrex as prescribed until gone. Follow-up with your family physician if no improvement in 2 to 3 days. [facility] Other 07-05-2022 Evaluation note* Encounter Date Diagnosis [...] to be seen. Also always know the [facility] Emergency Number is 24 hours a day available, even on holidays there is someone you can reach out to. Also we will check other labs yearly to screen for other health issues. Please remember we are a team and your opinion is very important in all of your healthcare decisions Nov, Insomnia, unspecified type (ICD-10 - G47.00) Increased dose as discussed. [facility] Other 06-20-2022 Evaluation note* Encounter Date Diagnosis Assessment Notes Treatment Notes Treatment Clinical Notes Oct, Generalized anxiety disorder (ICD-10 - F41.1) Increased medication as discussed. Oct, Herpes zoster without complication (ICD-10 - B02.9) Take medicatio as directed. Tylenol or motrin for pain [facility] Other 05-23-2022 Evaluation note* Encounter Date Diagnosis [...] to be seen. Also always know the [facility] Emergency Number is 24 hours a day [...] medication can help with sleep and anxiety [facility] Other 03-27-2022 Evaluation note* Encounter Date Diagnosis Assessment Notes Treatment Notes Treatment Clinical Notes Jul, Muscle pain (ICD-10 - M79.10) [facility] Other 01-28-2022 Evaluation note* Encounter Date Diagnosis [...] Patient care instructions given in writting by [facility] Care At Home document. [facility] Other 2022 Evaluation note* Encounter Date Diagnosis Assessment Notes Treatment Notes Treatment Clinical Notes May, PILO (generalized anxiety disorder) (ICD-10 - F41.1) May, Generalized anxiety disorder (ICD-10 - F41.1) May, Muscle pain (ICD-10 - M79.10) [facility] Other 11-06-2021 Evaluation note* Encounter Date Diagnosis [...] Patient care instructions given in writting by [facility] Care At Home document. [facility] Other 10-14-2021 Evaluation note* Encounter Date Diagnosis Assessment Notes Treatment Notes Treatment Clinical Notes Feb, Generalized anxiety disorder (ICD-10 - F41.1) resent script Feb, Puncture wound without foreign body of lip, initial encounter (ICD-10 - S01.531A) take medication as directed. Recommend taking out piercing and possibly using different type made of different metal [facility] Other 10-05-2021 Evaluation note* Encounter Date Diagnosis [...] to be seen. Also always know the [facility] Emergency Number is 24 hours a day available, even on holidays there is someone you can reach out to. Also we will check other labs yearly to screen for other health issues. Please remember we are a team and your opinion is very important in all of your healthcare decisions [facility] Other evaluation noteNortMount Nittany [facility] Other evaluation noteNo assessment information available [facility] Work Phone: evaluation note* Diagnosis Pre-op evaluation- Primary Preoperative examination, unspecified Class 3 severe obesity with serious comorbidity and body mass index (BMI) of 40.0 to 44.9 in adult, unspecified obesity type (HCC) Vapes nicotine containing substance Marijuana smoker Cannabis abuse, unspecified documented in this encounter [facility]* Diagnosis Body mass index (BMI) 40.0-44.9, adult (HCC)- Primary Dietary counseling and surveillance Dietary surveillance and counseling documented in this encounter [facility] note* Diagnosis Pre-op evaluation Preoperative examination, unspecified Class 3 severe obesity with serious comorbidity and body mass index (BMI) of 40.0 to 44.9 in adult, unspecified obesity type (HCC) documented in this encounter [facility]* Diagnosis Pre-op evaluation Preoperative examination, unspecified Class 3 severe obesity with serious comorbidity and body mass index (BMI) of 40.0 to 44.9 in adult, unspecified obesity type (HCC) documented in this encounter [facility]* Diagnosis Pre-op evaluation Preoperative examination, unspecified Class 3 severe obesity with serious comorbidity and body mass index (BMI) of 40.0 to 44.9 in adult, unspecified obesity type (HCC) documented in this encounter [facility]* Diagnosis Onset Date Resolution Status Right otitis media noneactiv e [facility] Work Phone: evaluation note* Diagnosis Onset Date Resolution Status Right otitis media noneactiv e Right ankle sprain acute [facility] Work Phone: evaluation note* Diagnosis Onset Date Resolution Status Right ankle sprain acute [facility] Work Phone: evaluation note* Diagnosis Onset Date Resolution Status Right ankle sprain acute Acute pharyngitis acute [facility] Work Phone: Evaluation note* Diagnosis Onset Date Resolution Status Right ankle sprain acute Acute pharyngitis acute Vaginal discharge acute [facility] Work Phone: Evaluation note* Diagnosis Class 3 severe obesity with serious comorbidity and body mass index (BMI) of 40.0 to 44.9 in adult, unspecified obesity type ([facility]) documented in this encounter [facility]* Diagnosis Well woman exam with routine gynecological exam Routine gynecological examination documented in this encounter [facility]* Diagnosis Encounter for supervision of normal first in first trimester ([facility]) Encounter for drug screening Encounter for screening for chromosomal anomalies ([facility]) Screening for genetic disease carrier status documented in this encounter [facility] HealthcareEvaluation note* Diagnosis Encounter for supervision of normal first in first trimester ([facility])- Primary 13 weeks gestation of ([facility]) Screen for sexually transmitted diseases Screening examination for venereal disease Herpes simplex type 2 infection complicating , first trimester ([facility]) Severe obesity due to excess calories affecting in first trimester ([facility]) Screening for malignant neoplasm of cervix Screening for malignant neoplasm of the cervix Nausea and vomiting during ([facility]) documented in this encounter [facility] HealthcareEvaluation note* Diagnosis First trimester ([facility]) state, incidental 12 weeks gestation of ([facility]) documented in this encounter [facility] HealthcareEvaluation note* Diagnosis Vaginal discharge Leukorrhea, not specified as infective Second trimester ([facility]) state, incidental 15 weeks gestation of ([facility]) Nausea and vomiting in ([facility]) Unspecified vomiting of , unspecified as to episode of care documented in this encounter [facility] HealthcareEvaluation note* Diagnosis 15 weeks gestation of ([facility]) Second trimester ([facility]) state, incidental Blood pressure check Screening for hypertension Nonintractable headache, unspecified chronicity pattern, unspecified headache type Nausea Nausea alone documented in this encounter [facility] HealthcareHistory general Narrative - Reported* Type Description Date Medical History ADHD Medical History syncope Medical History anxiety Medical History lupus Medical History back pain Medical History chronic depression Medical History PTSD Surgical History wisdom teeth Hospitalization History No Hospitalization [facility] [employer] Other History general Narrative - Reported* Type Description Date Medical History ADHD Medical History syncope Medical History anxiety Medical History lupus Medical History back pain Medical History chronic depression Medical History PTSD Surgical History wisdom teeth Hospitalization History No know Hospitalization history [facility] Other History general Narrative - ReportedNortMount [facility] [employer] Other Reason for referral (narrative)* Diagnostic Procedure [...] RATE&O2 SAT EFFORT UNATT Allie Larson APRN.CNP [id number] Neurological [facility] [address] [place] [address] Referral ID Status Reason Start Date Expiration Date Visits Requested Visits Authorized [id number] Pending Review Auto-Generat ed Referral 01/19/2023 01/19/2024 [...] ABDOMINAL REAL TIME W/IMAGE LIMITED Allie Larson APRN.DIRECTORY OPERATOR [address] [place] [address] [facility] [place] [address] Referral ID Status Reason Start Date Expiration Date Visits Requested Visits Authorized [id number] Pending Review Auto-Generat ed Referral 01/19/2023 02/18/2024 [...] ECG W/LEAST 12 LDS W/I&R Allie Larson APRN.DIRECTORY OPERATOR [address] [place] [address] [facility] [address] [place] [address] Referral ID Status Reason Start Date Expiration Date Visits Requested Visits Authorized [id number] Pending Review Auto-Generat ed Referral 01/19/2023 01/19/2024 1 1 T [facility] for referral (narrative)* Diagnostic Procedure Only (Routine) - Closed Specialty Diagnoses / Procedures Referred By Contac t Referred To Contact [facility] IMAG[facility] Diagnoses Pre-op evaluation Class 3 severe obesity with serious comorbidity and body mass index (BMI) of 40.0 to 44.9 in adult, unspecified obesity type (HCC) Procedures US ABD RIGHT UPPER QUADRANT US ABDOMINAL REAL TIME W/IMAGE LIMITED Allie Larson APRN.DIRECTORY OPERATOR [address] [place] [address] [place] [address] Referral ID Status Reason Start Date Expiration Date V isits Requested Visits Authorized [id number] Closed Auto-Generate d Referral 01/19/2023 02/18/2024 1 1 [facility] for referral (narrative)* Outpatient Procedure (Routine) - Closed Specialty Diagnoses / Procedures Referred By Contac t Referred To Contact [facility] Diagnoses Class 3 severe obesity with serious comorbidity and body mass index (BMI) of 40.0 to 44.9 in adult, unspecified obesity type (HCC) Procedures EGD DIAGNOSTIC ESOPHAGOGASTRODUODENOSC OPY [place] [address] [address] [facility] [place] [address] [place] [address] Referral ID Status Reason Start Date Expiration Date V isits Requested Visits Authorized [id number] Closed Auto-Generate d Referral 01/30/2023 01/30/2024 1 1 [facility] for referral (narrative)No reason for referral [facility] Narrative* Diagnostic Procedure Only (Routine) - Closed Specialty Diagnoses / Procedures Referred By Contac t Referred To Contact [facility] Diagnoses Pre-op evaluation Class 3 severe obesity with serious comorbidity and body mass index (BMI) of 40.0 to 44.9 in adult, unspecified obesity type (HCC) Procedures US ABD RIGHT UPPER QUADRANT US ABDOMINAL REAL TIME W/IMAGE LIMITED Allie Larson, TRANSFER AND PUMPHOUSE OPERATOR CHIEF.DIRECTORY OPERATOR [id number] [id number] [facility] [place] [id number] Referral ID Status Reason Start Date Expiration Date V isits Requested Visits Authorized [id number] Closed Auto-Generate d Referral 01/19/2023 02/18/2024 1 1 [facility] for visit Narrative* Outpatient Procedure (Routine) - Closed Specialty Diagnoses / Procedures Referred By Contac t Referred To Contact [facility] Diagnoses Class 3 severe obesity with serious comorbidity and body mass index (BMI) of 40.0 to 44.9 in adult, unspecified obesity type (HCC) Procedures EGD DIAGNOSTIC ESOPHAGOGASTRODUODENOSC OPY TRANS[place]AL [place] [address] [address] [facility] [place] [address] [place] [address] Referral ID Status Reason Start Date Expiration Date V isits Requested Visits Authorized [id number] Closed Auto-Generate d Referral 01/30/2023 01/30/2024 1 1 [facility] Chief Complaint and Reason for Visit [...] Elevated BP, 15 wk IUP February 06, 2 025 10:33pm Reason for Visit Admit Date Acute bacterial sinusitis November 09 10:32am Shingles November 15, 2024 10:0 5am Advance Directives No Advanced Directives Records Found [...] ECG W/LEAST 12 LDS W/I&R Allie Larson, TRANSFER AND PUMPHOUSE OPERATOR CHIEF.DIRECTORY OPERATOR [address] [place] [address] [facility] [place] [address] [place] [address] Referral ID Status Reason Start Date Expiration Date V isits Requested Visits Authorized [id number] Closed Auto-Generate d Referral 01/19/2023 01/19/2024 1 1 Reason Comments Radio Gen RMP Reason Comments Gynecologic Exam Reason Comments Initial Visit Nurse Visit Reason Comments Routine Visit Pt presents for 1 3w1d pnc. -glu/-pro. Feeling nauseous daily with vomiting daily. Reason Comments Routine Visit Pt present today as a NEW OB TRANSFER patient. Pt transferred from Dr. Browning. Reason Comments Routine Visit Reason Comments Routine Visit Care Teams (unrecognized [...] STAFF Primary Care Provider Active Michelle Arthur [facility] Emergency Provider Active Professor Of Exercise Science Relationship Specialty Start Date End Date Maria R Disla CNP [address] [place] [address] Referring Family Medicine 01/07/23 Professor Of Exercise Science Relationship Specialty Start Date End Date Maria R Disla CNP [address] [place] [address] Referring Family Medicine 01/07/23 Professor Of Exercise Science Relationship Specialty Start Date End Date Maria R Disla CNP [address] [place] [address] Referring Family Medicine 01/07/23 Professor Of Exercise Science Relationship Specialty Start Date End Date Maria R Disla CNP [address] [place] [address] Referring Family Medicine 01/07/23 Professor Of Exercise Science Relationship Specialty Start Date End Date Maria R Disla CNP [address] [place] [address] Referring Family Medicine 01/07/23 Professor Of Exercise Science Relationship Specialty Start Date End Date Maria R Disla CNP [address] [place] [address] Referring Family Medicine 01/07/23 Professor Of Exercise Science Relationship Specialty Start Date End Date Maria R Disla CNP [address] [place] [address] Referring Family Medicine 01/07/23 Team Status: Inactive [...] February 02, 2024 End: February 02, 2024 Professor Of Exercise Science Relationship Specialty Start Date End Date Kromer, Karly PCP - [facility] HYPERBARIC NURSE 11/23/23 Professor Of Exercise Science Relationship Specialty Start Date End Date Kromer, Karly PCP - [facility] HYPERBARIC NURSE 11/23/23 Professor Of Exercise Science Relationship Specialty Start Date End Date Kromer, Karly PCP - [facility] HYPERBARIC NURSE 11/23/23 Professor Of Exercise Science Relationship Specialty Start Date End Date Kromer, Karly PCP - [facility] HYPERBARIC NURSE 11/23/23 Professor Of Exercise Science Relationship Specialty Start Date End Date Kromer, Karly PCP - [facility] HYPERBARIC NURSE 11/23/23 Professor Of Exercise Science Relationship Specialty Start Date End Date Kromer, Karly PCP - [facility] HYPERBARIC NURSE 11/23/23 Professor Of Exercise Science Relationship Specialty Start Date End Date Kromer, Karly PCP - [facility] HYPERBARIC NURSE 11/23/23 Professor Of Exercise Science Relationship Specialty Start Date End Date Kromer, Karly PCP - [facility] HYPERBARIC NURSE 11/23/23 Team Status: Inactive Member Role Status [...] February 06, 2025 End: February 07, 2025 Professor Of Exercise Science Relationship Specialty Start Date End Date Kromer, Karly PCP - [facility] HYPERBARIC NURSE 11/23/23 Professor Of Exercise Science Relationship Specialty Start Date End Date Kromer, Karly PCP - [facility] HYPERBARIC NURSE 11/23/23 Professor Of Exercise Science Relationship Specialty Start Date End Date Karly Baca PCP - [facility] 11/23/23 Goals (unrecognized section and content) Goals may be documented in a n alternate section INFORMATION SOURCE (unrecogn ized section and content) DATE CREATED AUTHOR 09/27/2022 [facility] DATE CREATED AUTHOR AUTHOR'S ORGANIZ ATION 02/11/2023 [facility] DATE CREATED AUTHOR AUTHOR'S ORGANIZ ATION 03/13/2023 [facility] DATE CREATED AUTHOR AUTHOR'S ORGANIZ ATION 04/07/2023 [facility] DATE CREATED AUTHOR AUTHOR'S ORGANIZ ATION 03/25/2024 [facility] DATE CREATED AUTHOR AUTHOR'S ORGANIZ ATION 03/26/2024 [facility] DATE CREATED AUTHOR AUTHOR'S ORGANIZ ATION 03/28/2024 [facility] DATE CREATED AUTHOR AUTHOR'S ORGANIZ ATION 02/08/2025 [facility] DATE CREATED AUTHOR AUTHOR'S ORGANIZ ATION 02/11/2025 [facility] EPIC Source Comments (unrecognize d section and content) In the event this informatio n is protected by the Federal Confidentiality of Alcohol and Drug Abuse Patient Records regulations: The Federal rules restrict any use of the information to criminally investigate or prosecute any alcohol or drug abuse patient.[facility] the event this information is protected by the Federal Confidentiality of Alcohol and Drug Abuse Patient Records regulations: The Federal rules restrict any use of the information to criminally investigate or prosecute any alcohol or drug abuse patient.[facility] the event this information is protected by the Federal Confidentiality of Alcohol and Drug Abuse Patient Records regulations: The Federal rules restrict any use of the information to criminally investigate or prosecute any alcohol or drug abuse patient.[facility] the event this information is protected by the Federal Confidentiality of Alcohol and Drug Abuse Patient Records regulations: The Federal rules restrict any use of the information to criminally investigate or prosecute any alcohol or drug abuse patient.[facility] the event this information is protected by the Federal Confidentiality of Alcohol and Drug Abuse Patient Records regulations: The Federal rules restrict any use of the information to criminally investigate or prosecute any alcohol or drug abuse patient.[facility] the event this information is protected by the Federal Confidentiality of Alcohol and Drug Abuse Patient Records regulations: The Federal rules restrict any use of the information to criminally investigate or prosecute any alcohol or drug abuse patient.[facility] the event this information is protected by the Federal Confidentiality of Alcohol and Drug Abuse Patient Records regulations: The Federal rules restrict any use of the information to criminally investigate or prosecute any alcohol or drug abuse patient.[facility] the event this information is protected by the Federal Confidentiality of Alcohol and Drug Abuse Patient Records regulations: The Federal rules restrict any use of the information to criminally investigate or prosecute any alcohol or drug abuse patient.[facility] the event this information is protected by the Federal Confidentiality of Alcohol and Drug Abuse Patient Records regulations: The Federal rules restrict any use of the information to criminally investigate or prosecute any alcohol or drug abuse patient.[facility] FOR RECORDS PERTAINING TO PATIENTS WHO [...] BE BASED ON THE PRIMARY CLINICAL RECORDS. [employer] [facility]. provides no warranty or guarantee of the accuracy or completeness of information in this document.
[2025-02-15 18:26] LABS: Hematocrit 37.6 % (36.0-48.0); Hemoglobin 12.9 g/dL (12.0-16.0); Immature Granulocytes Abs Auto 0.05 10^3/uL (0.00-0.03); Immature Granulocytes Pct Auto 0.5 % (0.0-0.5); Lymphocytes Absolute Auto 2.4 10^3/uL (1.2-3.8); Mean Corpuscular HGB Conc 34.3 g/dL (29.9-35.2); Mean Corpuscular Hemoglobin 30.2 pg (26.7-34.0); Mean Corpuscular Volume 88.1 fL (81.0-99.0); Platelet Count 240 10^3/uL (150-450); Red Blood Count 4.27 10^6/uL (4.20-5.40); White Blood Count 11.1 10^3/uL (4.0-11.0)
--- NOTE | 2025-02-15 18:38 | ED_ITS ---
HPI - Extremity Problem General Chief complaint: Weakness Stated complaint: CRAMP IN LEFT LEG AND BLOOD PRESSURE HIGH, THEN LO Time Seen by Provider: 02/15/25 17:35 Mode of arrival: walk-in Limitations: no limitations History of Present Illness HPI Narrative: 25-year-old female, , approximately 16 weeks , presents with left lower extremity pain and swelling for the past 3 days. Pain is localized to the left calf and associated with mild swelling. No redness, warmth, or overlying skin changes. She recently traveled to [place] over a month ago, no other recent travel, no smoking, denies any other risk factors for DVT such as history of clotting disorders, OCP use, or prolonged immobility beyond travel. She denies chest pain, shortness of breath, palpitations, syncope, fever, chills, recent illness, or injury. She has no headache today but reports she occasionally takes magnesium for headaches. She has been monitoring her blood pressure at home and states it has not exceeded systolic 128. Medications: vitamins, trazodone for sleep, magnesium PRN for headaches. No known drug allergies. Related Data Home Medications ?Medication ?Instructions ?Recorded ?Confirmed trazodone 50 mg tablet 50 mg PO QPM PRN sleep 01/1901/20/24 magnesium oxide 400 mg (241.3 mg mg 02/15/25 magnesium) tablet vit no.95-ferrous tab PO 02/15/25 fumarate 28 mg-folic acid 800 mcg tablet () Allergies Allergy/AdvReac Type Severity Reaction Status Date / Time No Known Drug Allergies Allergy Verified [facility]/15/25 17:38 [facility] Social History Little interest or pleasure in doing things: not at all Feeling down, depressed, or hopeless: not at all Exam Narrative Exam Narrative: * General: Alert, oriented ?3, well-appearing, in no acute distress. * Vital Signs: Stable and within normal limits. * Cardiac: Regular rate and rhythm, no murmurs. * Respiratory: Lungs clear bilaterally, normal effort. * Abdomen: Soft, non-tender, gravid, no rebound or guarding. * Extremities:. * Left calf Tender to palpation. * No selling in the leg * No erythema, warmth, or palpable cord. * No pitting edema. * Distal pulses intact and symmetric. * Neuro: Normal sensation and motor function in both lower extremities. Constitutional Vital Signs, click to edit/add: Last Vital Signs Temp 97.9 F 02/15/25 17:33 Pulse 85 02/15/25 17:33 Resp 18 02/15/25 17:33 BP 129/72 02/15/25 17:33 Pulse Ox 100 02/15/25 17:33 Course Vital Signs Vital signs: Vital Signs Temperature 97.9 F 02/15/25 17:33 Pulse Rate 85 02/15/25 17:33 Respiratory Rate 18 02/15/25 17:33 Blood Pressure 129/72 02/15/25 17:33 Pulse Oximetry 100 02/15/25 17:33 Temperature 97.9 F 02/15/25 17:33 Pulse Rate 85 02/15/25 17:33 Respiratory Rate 18 02/15/25 17:33 Blood Pressure 129/72 02/15/25 17:33 Pulse Oximetry 100 02/15/25 17:33 MDM - Extremity (Nontraumatic) MDM Narrative Medical decision making narrative: Diagnostics: * Venous Doppler Ultrasound: Negative for DVT. * Labs: Unremarkable. MDM & Differential: This is a 25-year-old at 16 weeks gestation presenting with unilateral calf pain. The main concern was for DVT given recent travel and (hypercoagulable state). Venous Doppler was negative, significantly lowering suspicion for DVT at this time. Differential diagnosis considered: * DVT ? ruled out by negative Doppler. * Superficial thrombophlebitis ? no palpable cord or erythema. * Muscle strain ? possible given localized tenderness without systemic symptoms. * Dependent edema of ? possible but swelling is mild and unilateral. * Cellulitis ? unlikely, no erythema, warmth, or fever. No signs of preeclampsia (BP normal, no headache, no visual changes, no RUQ pain). Plan / Disposition: * Patient reassured given negative DVT study. * Advised rest, elevation, warm compresses as needed, and acetaminophen for discomfort if approved by OB. * Educated on warning signs of DVT/PE (worsening pain/swelling, redness, warmth, chest pain, shortness of breath) and preeclampsia (BP >140/90, headache, visual changes). * Follow up with OB within 1?2 days or sooner for reassessment if symptoms worsen. * Patient verbalized understanding and agrees with plan. Lab Data Labs: Lab Results 02/15/25 Range/Units 18:13 WBC 11.1 H (4.0-11.0) 10^3/uL RBC 4.27 (4.20-5.40) 10^6/uL Hgb 12.9 (12.0-16.0) g/dL Hct 37.6 (36.0-48.0) % MCV 88.1 (81.0-99.0) fL MCH 30.2 (26.7-34.0) pg MCHC 34.3 (29.9-35.2) g/dL RDW 12.5 (11.0-15.0) % Plt Count 240 (150-450) 10^3/uL MPV 9.9 (9.5-13.5) fL Neut % (Auto) 70.4 (43.0-75.0) % Lymph % (Auto) 21.8 (20.5-60.0) % Lipscomb % (Auto) 6.5 (1.7-12.0) % Eos % (Auto) 0.5 L (0.9-7.0) % Baso % (Auto) 0.3 (0.2-2.0) % Neut # (Auto) 7.8 H (1.4-6.5) 10^3/uL Lymph # (Auto) 2.4 (1.2-3.8) 10^3/uL Lipscomb # (Auto) 0.7 (0.3-0.8) 10^3/uL Eos # (Auto) 0.1 (0.0-0.7) 10^3/uL Baso # (Auto) 0.0 (0.0-0.1) 10^3/uL Abs Immat Gran (auto) 0.05 H (0.00-0.03) 10^3/uL Imm/Tot Granulo (auto) 0.5 (0.0-0.5) % PT 10.0 (9.0-11.6) sec INR 0.94 Sodium 135 L (136-145) mmol/L Potassium 3.9 (3.5-5.1) mmol/L Chloride 104 (98-107) mmol/L Carbon Dioxide 25.2 (21.0-32.0) mmol/L Anion Gap 9.7 BUN 7.0 (7.0-18.0) mg/dL Creatinine 0.49 L (0.55-1.02) mg/dL Est GFR ( Amer) >60 (>=60 mL/min/1.73m^2) Est GFR (Non-Af Amer) >60 (>=60 mL/min/1.73m^2) BUN/Creatinine Ratio 14.3 Glucose 85 (74-106) mg/dL Calcium 8.6 (8.5-10.1) mg/dL Total Bilirubin 0.3 (0.2-1.0) mg/dL AST 19 (15-37) U/L ALT 29 (14-59) U/L Alkaline Phosphatase 70 (46-116) U/L Total Protein 7.0 (6.4-8.2) g/dL Albumin 3.0 L (3.4-5.0) g/dL Globulin 4.0 g/dL Albumin/Globulin Ratio 0.8 Discharge Plan Discharge Chief Complaint: Weakness Clinical Impression: Left leg pain, Patient Disposition: Home, Self-Care Time of Disposition Decision: 19:29 Condition: Good Prescriptions / Home Meds: No Action trazodone 50 mg tablet 50 mg PO QPM PRN (Reason: sleep) magnesium oxide 400 mg (241.3 mg magnesium) tablet PNV no.95-ferrous fumarate-FA [] 28 mg iron- 800 mcg tablet PO Print Language: Chinese Instructions: Leg Cramps (ED), Leg Pain (ED), at 11 to 14 Weeks (ED) Additional Instructions: After-Visit Summary Reason for Visit: Left calf pain and swelling ? DVT ruled out What We Found: * Your leg pain and swelling were checked with an ultrasound, and no blood clot (DVT) was found. * Your labs were normal, and your blood pressure was in a safe range. * At this time, we believe your pain may be from a muscle strain or normal -related swelling. What To Do at Home: * Rest and elevate your leg when possible. * Apply warm compresses to the sore area if this helps. * You may take acetaminophen (Tylenol) for pain if approved by your OB. * Continue your normal medications and vitamins. Follow-Up: * Make an appointment with your CARBON PAPER COATING MACHINE SETTER in the next 1?2 days for follow-up and monitoring. When to Return to the ER: Come back right away if you have: * Worsening swelling, redness, or warmth of the leg * New or severe pain in the leg * Chest pain, shortness of breath, coughing up blood, or feeling faint * Severe headache, vision changes, blood pressure consistently >140/90 * Sudden abdominal pain or vaginal bleeding Referrals: RICKEY OCHOA [Primary Care Provider, Unknown] - 1 week Discharge Date/Time: 02/15/25 19:46
[2025-02-15 18:40] LABS: INR 0.94; Prothrombin Time 10.0 sec (9.0-11.6)
[2025-02-15 18:45] LABS: Alanine Aminotransferase 29 U/L (14-59); Albumin Globulin Ratio 0.8; Albumin Level 3.0 g/dL (3.4-5.0); Alkaline Phosphatase 70 U/L (46-116); Anion Gap 9.7; Aspartate Amino Transferase 19 U/L (15-37); Blood Urea Nitrogen 7.0 mg/dL (7.0-18.0); Calcium 8.6 mg/dL (8.5-10.1); Carbon Dioxide 25.2 mmol/L (21.0-32.0); Chloride 104 mmol/L (98-107); Estimated GFR (African America >60 (>=60 mL/min/1.73m^2); Estimated GFR (Non-African Ame >60 (>=60 mL/min/1.73m^2); Globulin 4.0 g/dL; Glucose 85 mg/dL (74-106); Potassium 3.9 mmol/L (3.5-5.1); Sodium 135 mmol/L (136-145); Total Protein 7.0 g/dL (6.4-8.2)
== END 2025-02-15 19:46 | disposition home or self-care (01) ==
PROVIDERS: Physician Assistant; Emergency Provider Emergency Medicine; PCP Nurse Practitioner Family
DX: O99.891 Other specified diseases and conditions complicating pregnancy (principal); M79.605 Pain in left leg; Z3A.16 16 weeks gestation of pregnancy
CPT/HCPCS: 36415; 80053; 85025; 85610; 93971; 99284

== ENCOUNTER 2025-03-13 12:20 | Outpatient (OUT) | payer MEDICAID, SELFPAY ==
--- OUTSIDE RECORDS SUMMARY | 2025-03-13 12:25 | XMS_ITS | CCD ---
Author Organization [facility] Care Team Providers Care Cryptologic Technician Technical Name Role Phone Maria R Disla Unavailable [...] DR PEARSON Consulting Unavailable Naif NGUYỄNCarlosie Unavailable [phone] SASHA XIE Attending Unavailable NEO, ALLIE Referring Unavailable NEO, ALLIE Referring Unavailable HSELLY PARSONS Attending Unavailable MALONE, TOMS Referring Unavailable NETTA DILLARD Attending Unavailable NEO, ALLIE Referring Unavailable NEO, ALLIE Attending Unavailable MALONE, TOMS Attending Unavailable NEO, ALLIE Referring Unavailable NON STAFF Primary Care Provider UnavailISRAEL Torres Attending Provider ISRAEL Christie Attending Provider ISRAEL Alas Attending Provider [phone] MARIA R DISLA Attending Unavailable MARIA R DISLA Admitting Unavailable MARZENA MARTINEZ Attending Unavailable MARZENA MARTINEZ Admitting Unavailable MARIA R DISLA Attending Unavailable MARIA R DISLA Admitting Unavailable Phuong Karly Unavailable Unavailable NON STAFF Primary Care Provider Unavailanna marie e Rajwinder Bang APRN Attending Provider Fred Longoria PA-C Attending Provider [phone] Valente Hebert DO Emergency Provider NON STAFF Primary Care Unavailable Valente Hebert Attending Unavailable Valente Hebert Admitting Unavailable IRA JENSEN Attending Unavailable WESLEY BROWNING Attending Unavailable RODRIGO GUZMAN Attending Unavailable IRA JENSEN Attending Unavailable IRA JENSEN Attending Unavailable RODRIGO GUZMAN Attending Unavailable Medications Current Medications Medication Drug [...] 12-19-2024 magnesium oxide 400 mg oral tablet (9 sources) Start: 02-07-2025 End: 09-05-2025 take 1 tablet by mouth once daily magnesium oxide (Mag-Ox) 400 MG tablet Indications: Nausea and vomiting in ([facility]) Take 1 tablet (400 mg) by mouth Daily 30 tablet 6 02/07/2025 09/05/2025 Active nitrofurantoin, macrocrystals 25 mg / nitrofurantoin, monohydrate 75 mg oral capsule (2 sources) Nitrofuran Antibacterial Start: 07-07-2022 take 1 capsule by mouth every twelve hours Macrobid 100 MG 1 cap(s) Orally 2 times a day for 5 day(s) Jun, Active ondansetron 4 mg oral tablet (9 sources) Serotonin-3 Receptor Antagonist Start: 02-07-2025 take 1 tablet by mouth every six hours as needed for nausea and nausea, then take 1 tablet by mouth every six hours as needed for nausea and nausea ondansetron (Zofran) 4 MG tablet Indications: Nausea and vomiting in ([facility]) Take 1 tablet (4 mg) by mouth [...] Vit-Fe Fumarate-FA ( Vitamins) 28-0.8 MG tablet (17 sources) Start: 12-02-2024 End: 12-02-2025 take 1 tablet by mouth once daily Vit-Fe Fumarate-FA ( Vitamins) 28-0.8 MG tablet Indications: Encounter for supervision of normal first in first trimester ([facility]) Take 1 tablet by mouth Daily 30 tablet 11 12/02/2024 12/02/2025 Active promethazine hydrochloride 12.5 mg oral tablet (5 sources) Phenothiazine Start: 02-09-2025 take 2 tablets [...] Drug Class(es) Dates Sig (Normalized) Sig (Original) [id number] 200 actuat albuterol 0.09 mg/actuat metered dose [...] Comment on above: [facility]. benzoyl peroxide 100 [...] 9:18am Start: 03-16-2020 take 1 tablet by [facility] every eight hours Cyclobenzaprine HCl 5 MG 1 tablet as needed Orally Three times a day Feb, Not-Taking dextromethorphan hydrobromide 15 mg / guaiFENesin 400 mg / pseudoephedrine hydrochloride 60 mg oral tablet (1 source) alpha-Adrenergic Agonist, Uncompetitive [employer]-N-aspartate Receptor Antagonist, Sigma-1 Agonist Start: 11-05-2024 End: 11-15-2024 take 4 tablets by mouth every twenty-four hours as needed Uoijdrhyevnopzb-It-Cwwxkywqhme (Capmist Dm) 60-15-400 mg tablet Discontinued 1 [...] on above: Take 1 capsule by mo uth once daily. fluconazole 150 mg oral tablet [...] 01-30-2023 Chronic Other and delivery including normal (11 sources) Normal ; Translations: [Encounter for supervision [...] [Insomnia, unspecified] 09-16-2023 Episodic Residual codes; unclassified (14 sources) Patient encounter status; Translations: [Procedure and treatment not carried out due to patient leaving prior to being seen by health care provider] 07-04-2022 Episodic Comment on above: Problem List clean-u p per request of Phys. EHR Cmte Residual codes; unclassified (5 sources) Procedure and treatment not carried out due to patient leaving prior to being seen by health care provider; Translations: [PROC AND TX NOT CARRIED OUT PT LEAVE] Onset: 05-01-2022 Episodic Residual codes; unclassified (1 source) Nicotine-filled [...] [15 weeks gestation of ] 02-07-2025 Episodic Residual codes; unclassified (2 sources) Gestation period, 19 weeks; Translations: [19 weeks gestation of ] 03-06-2025 Episodic Skin and subcutaneous tissue infections (4 [...] [Systemic lupus erythematosus, unspecified] 09-16-2023 Chronic Unclassified (17 sources) OB Reminders Onset: 12-02-2024 12-02-2024 Urinary [...] 03-07-2021 Episodic Other aftercare (1 source) Other longterm (current) drug therapy; Translations: [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] Onset: 01-15-2022 Episodic Other inflammatory condition of skin (4 sources) Pruritus, unspecified; Translations: [PRURITUS UNSPECIFIED] Onset: 10-28-2021 Episodic Other skin disorders (4 sources) Follicular cyst of the skin and subcutaneous tissue, unspecified; Translations: [FOLLICULAR CYST SKIN SUBQ TISS UNS] Onset: 01-14-2022 Episodic Residual codes; unclassified (2 sources) Insomnia, unspecified Onset: 10-14-2021 Resolved: 11-26-2021 Episodic Results Test Name Value Interpretation Reference Range Facility Urinalysis macro (dipstick) panel (U)on 03-06-2025 Bilirubin, UA Negative Negative - 4(70) +++ mg/dL [facility] Blood, UA Negative Negative - 50 Dao/mcL [facility] Clarity, UA Clear [facility] Color, UA Yellow [facility] Glucose, UA Negative Negative - 1999(110) ++++ mg/dL [facility] Interpretation and review of laboratory results Abnormal [facility] Ketones, UA Positive Negative - 160(16) ++++ mg/dL [facility] Comment on above: 1+ Leukocytes, UA Negative Negative - 500+++ Hernandez/mcL [facility] Nitrite, UA Negative Negative - Positive [facility] pH, UA 6.0 5 - 9 [facility] Protein, UA Negative Negative - 1999(20) ++++ mg/dL [facility] Spec Grav, UA 1.020 1 - 1.03 [facility] Urobilinogen, UA 0.2 0.2 - 12 mg/dL [facility] Urinalysis macro (dipstick) panel (U)on 02-09-2025 Bilirubin, UA Negative Negative - 4(70) +++ mg/dL [facility] Blood, UA Negative Negative - 50 Dao/mcL [facility] Clarity, UA Clear [facility] Color, UA Yellow [facility] Glucose, UA Negative Negative - 1999(110) ++++ mg/dL [facility] Interpretation and review of laboratory results Normal [facility] Ketones, UA Negative Negative - 160(16) ++++ mg/dL [facility] Leukocytes, UA Negative Negative - 500+++ Hernandez/mcL [facility] Nitrite, UA Negative Negative - Positive [facility] pH, UA 6.5 5 - 9 [facility] Protein, UA Negative Negative - 1999(20) ++++ mg/dL [facility] Spec Grav, UA 1.015 1 - 1.03 [facility] Urobilinogen, UA 1.0 0.2 - 12 mg/dL [facility] RECURRENT VAGINITIS (HTRX)on 02-08-2025 ATOPOBIUM VAGINAE 0 [facility] ATOPOBIUM VAGINAE Not detected [facility] BVAB 2,3 (BACTERIAL VAGINOSIS ASSOCIATED BACTERIA 2, 3); MOBILUNCUS SPP 0 [facility] BVAB 2,3 (BACTERIAL VAGINOSIS ASSOCIATED BACTERIA 2, 3); MOBILUNCUS SPP Not detected [facility] ASHUTOSH ALBICANS, PARAPSILOSIS, TROPICALIS 0 [facility] ASHUTOSH ALBICANS, PARAPSILOSIS, TROPICALIS Not detected [facility] ASHUTOSH GLABRATA 0 [facility] ASHUTOSH GLABRATA Not detected [facility] ASHUTOSH KRUSEI 0 [facility] ASHUTOSH KRUSEI Not detected [facility] CHLAMYDIA TRACHOMATIS 0 [facility] CHLAMYDIA TRACHOMATIS Not detected [facility] GARDNERELLA VAGINALIS 0 [facility] GARDNERELLA VAGINALIS Not detected [facility] MEGASPHAERA (TYPES 1, 2) 0 [facility] MEGASPHAERA (TYPES 1, 2) Not detected [facility] MYCOPLASMA GENITALIUM 0 [facility] MYCOPLASMA GENITALIUM Not detected [facility] NEISSERIA GONORRHOEAE 0 [facility] NEISSERIA GONORRHOEAE Not detected [facility] TRICHOMONAS VAGINALIS 0 [facility] TRICHOMONAS VAGINALIS Not detected [facility] Urinalysis macro (dipstick) panel (U)on 02-07-2025 Bilirubin, UA Negative Negative - 4(70) +++ mg/dL [facility] Blood, UA Negative Negative - 50 Dao/mcL [facility] Clarity, UA Clear [facility] Color, UA Yellow [facility] Glucose, UA Negative Negative - 1999(110) ++++ mg/dL [facility] Interpretation and review of laboratory results Normal [facility] Ketones, UA Negative Negative - 160(16) ++++ mg/dL [facility] Leukocytes, UA Negative Negative - 500+++ Hernandez/mcL [facility] Nitrite, UA Negative Negative - Positive [facility] pH, UA 7 5 - 9 [facility] Protein, UA Negative Negative - 1999(20) ++++ mg/dL [facility] Spec Grav, UA 1.01 1 - 1.03 [facility] Urobilinogen, UA 0.2 0.2 - 12 mg/dL [facility] BOX TESTon 01-19-2025 BOX TEST SENT OUT [facility] BOX1 [facility] BOX2 01/19/25 [facility] Urinalysis macro (dipstick) panel (U)on 01-19-2025 Bilirubin, UA Negative Negative - 4(70) +++ mg/dL [facility] Blood, UA Negative Negative - 50 Dao/mcL [facility] Clarity, UA Clear [facility] Color, UA Yellow [facility] Glucose, UA Negative Negative - 1999(110) ++++ mg/dL [facility] Interpretation and review of laboratory results Normal [facility] Ketones, UA Negative Negative - 160(16) ++++ mg/dL [facility] Leukocytes, UA Negative Negative - 500+++ Hernandez/mcL [facility] Nitrite, UA Negative Negative - Positive [facility] pH, UA 6 5 - 9 [facility] Protein, UA Negative Negative - 1999(20) ++++ mg/dL [facility] Spec Grav, UA 1.02 1 - 1.03 [facility] Urobilinogen, UA 1.0 0.2 - 12 mg/dL [facility] Laboratory - Specimen inform ationon 12-19-2024 Specimen type Nom (Spec) vaginal [facility] No Panel Informationon 12-19 GONORRHOEAE DNA(PCR) Negative Negatvie [facility] Interpretation and review of laboratory results Normal [facility] Glucose, UA Negative Negative - 1999(110) ++++ mg/dL [facility] Interpretation and review of laboratory results Normal [facility] Protein, UA Negative Negative - 1999(20) ++++ mg/dL [facility] IGP,APTIMA HPV,AGE GDLNon AGE GDLN ACOG TESTING Note . [facility] Comment on above: TESTS RESULT FLAG UN ITS REF RANGE LAB Clinician Provided Cytology Information Source.............Cervix;Endocervix No. of containers..01 ThinPrep Vial Age Algo ACOG Yolanda... FLAG LEGEND: L-Low Normal,H-High Normal,LL-Alert Low,HH-Alert High <-Panic Low,>-Panic High,A-Abnormal,AA-Critical Abnormal Performed at: 01 =G [facility] [place] [address] Allison Miller MD, IGP, RFX APTIMA HPV ASCU Note . [facility] Comment on above: TESTS RESULT FLAG UN ITS REF RANGE LAB DIAGNOSIS: 02 NEGATIVE FOR INTRAEPITHELIAL LESION OR MALIGNANCY. Specimen adequacy: 02 Satisfactory for evaluation. No endocervical component is identified. Performed by: 02 Magaly Jenkins Green Chainer (ASCP) . 02 Note: Note 02 The [...] <-Panic Low,>-Panic High,A-Abnormal,AA-Critical Abnormal Performed at: [address] [id number] Allison Miller MD, Performed at: =G - [facility] [address] [id number] Manager Semiconductor: Allison Miller MD, Phone: [phone] Performed at: - [facility] [id number] Manager Semiconductor: Allison Miller MD, Phone: [phone] BRUSH-SPATULA CERVIX [facility] HAILEE w/Reflex if POSon 2023 Nuclear Ab Ql (S) Negative Invalid Interpretation Code Negative [facility] Comment on above: Result Comment: Perf ormed at: [address] [id number] PhD Fara Braswell Performed By: #### 1 [id number] #### [facility] [address] [place] [address] Cortisolon 03-24-2024 Cortisol [Mass/Vol] 15.2 microgram/dL Invalid Interpretation Code 6.2-19.4 [facility] Comment on above: Result Comment: Christy luis Note: The reference interval and flagging for this test is for an AM collection. If this is a PM collection please use: Cortisol PM: 2.3-11.9 Performed at: [address] [id number] PhD Fara Braswell Performed By: #### 2 [id number] #### [facility] [address] [place] [address] FSH and LHon 03-24-2024 Follitropin Qn 7.7 m[IU]/mL Invalid Interpretation Code [facility] Comment on above: Result Comment: Adul t Female Range Follicular phase 3.5 - 12.5 Ovulation phase 4.7 - 21.5 Luteal phase 1.7 - 7.7 Postmenopausal 25.8 - 134.8 Performed at: [address] [id number] PhD Fara Braswell Performed By: #### 1 [id number] #### [facility] [address] [place] [address] Lutropin Qn 8.6 m[IU]/mL Invalid Interpretation Code [facility] Comment on above: Result Comment: Adul t Female Range Follicular phase 2.4 - 12.6 Ovulation phase 14.0 - 95.6 Luteal phase 1.0 - 11.4 Postmenopausal 7.7 - 58.5 Performed By: #### 1 [id number] #### [facility] [address] [place] [address] Insulin Lvlon 03-24-2024 Insulin Qn 9.4 u[IU]/mL Invalid Interpretation Code 2.6-24.9 [facility] Comment on above: Result Comment: Perf ormed at: [address] [id number] PhD Fara Braswell Performed By: #### 1 [id number] #### [facility] [address] [place] [address] RF Quanton 03-24-2024 Rheumatoid factor Qn [IU]/mL Invalid Interpretation Code <14.0 [facility] Comment on above: Result Comment: Perf ormed at: [address] [id number] PhD Fara Braswell Performed By: #### 1 [id number] #### [facility] [address] [place] [address] T3 Totalon 03-24-2024 T3 [Mass/Vol] 131 ng/dL Invalid Interpretation Code 71-180 [facility] Comment on above: Result Comment: Perf ormed at: [address] [id number] PhD Fara Braswell Performed By: #### 1 [id number] #### [facility] [address] [place] [address] CMPon 03-23-2024 Albumin [Mass/Vol] 4.3 g/dL Normal 3.3-5.0 [facility] Comment on above: Performed By: #### 2 [id number] #### [facility] [address] [place] [address] Albumin/Globulin (S) [Mass conc ratio] 1.4 Normal 1.1-2.2 [facility] Comment on above: Performed By: #### 2 [id number] #### [facility] [address] [place] [address] ALP [Catalytic activity/Vol] 82 Int._Unit/L Normal 21-98 [facility] Comment on above: Performed By: #### 2 [id number] #### [facility] [address] [place] [address] ALT No additional P-5'-P [Catalytic activity/Vol] 13 Int._Unit/L Normal 6-46 [facility] Comment on above: Performed By: #### 2 [id number] #### [facility] [address] [place] [address] Anion gap [Moles/Vol] 11 mmol/L Normal 6-16 [facility] Comment on above: Performed By: #### 2 [id number] #### [facility] [address] [place] [address] AST [Catalytic activity/Vol] 16 Int._Unit/L Normal 5-43 [facility] Comment on above: Performed By: #### 2 [id number] #### [facility] [address] [place] [address] Bilirubin [Mass/Vol] 0.8 mg/dL Normal 0.0-1.[address] [facility] Comment on above: Performed By: #### 2 [id number] #### [facility] [address] [place] [address] Calcium [Mass/Vol] 9.4 mg/dL Normal 8.9-11.1 [facility] Comment on above: Performed By: #### 2 [id number] #### [facility] [address] [place] [address] Chloride [Moles/Vol] 104 mmol/L Normal 101-[address] [facility] Comment on above: Performed By: #### 2 [id number] #### [facility] [address] [place] [address] CO2 [Moles/Vol] 27 mmol/L Normal 21-31 [facility] Comment on above: Performed By: #### 2 [id number] #### [facility] [address] [place] [address] Creatinine [Mass/Vol] 0.7 mg/dL Normal 0.5-1.3 [facility] Comment on above: Performed By: #### 2 [id number] #### [facility] [address] [place] [address] Globulin (S) [Mass/Vol] 3.0 g/dL Normal 1.4-4.0 [facility] Comment on above: Performed By: #### 2 [id number] #### [facility] [address] [place] [address] Glucose [Mass/Vol] 89 mg/dL Normal 55-199 [facility] Comment on above: Performed By: #### 2 [id number] #### [facility] [address] [place] [address] Potassium [Moles/Vol] 4.1 mmol/L Normal 3.5-5.3 [facility] Comment on above: Performed By: #### 2 [id number] #### [facility] [address] [place] [address] Protein [Mass/Vol] 7.3 g/dL Normal 6.0-7.8 [facility] Comment on above: Performed By: #### 2 [id number] #### [facility] [address] [place] [address] Sodium [Moles/Vol] 138 mmol/L Normal 135-145 [facility] Comment on above: Performed By: #### 2 [id number] #### [facility] [address] [place] [address] Urea nitrogen [Mass/Vol] 10 mg/dL Normal 5-21 [facility] Comment on above: Performed By: #### 2 [id number] #### [facility] [address] [place] [address] Urea nitrogen/Creatinine [Mass ratio] 14 No Units Normal 10-20 [facility] Comment on above: Performed By: #### 2 [id number] #### [facility] [address] [place] [address] NfcR5hul 03-23-2024 HbA1c (Bld) [Mass fraction] 5.1 % Normal <=5.9 [facility] Comment on above: Performed By: #### 7 [id number] #### [facility] [address] [place] [address] Lipid Panelon 03-23-2024 Cholesterol [Mass/Vol] 153 mg/dL Normal 120-200 [facility] Comment on above: Performed By: #### 2 [id number] #### [facility] [address] [place] [address] Cholesterol in HDL [Mass/Vol] 45 mg/dL Invalid Interpretation Code [facility] Comment on above: Result Comment: '>= 60 LOW RISK' '<= 40 HIGH RISK' Performed By: #### 2 [id number] #### [facility] [address] [place] [address] Cholesterol in LDL [Mass/Vol] 102 mg/dL Normal <=129 [facility] Comment on above: Performed By: #### 2 [id number] #### [facility] [address] [place] [address] Cholesterol in VLDL [Mass/Vol] 26 mg/dL Normal 7-40 [facility] Comment on above: Performed By: #### 2 [id number] #### [facility] [address] [place] [address] Triglyceride [Mass/Vol] 129 mg/dL Normal <=149 [facility] Comment on above: Performed By: #### 2 [id number] #### [facility] [address] [place] [address] T4 & TSHon 03-23-2024 TSH Qn 2.00 m[IU]/L Normal 0.34-5.60 [facility] Comment on above: Performed By: #### 1 [id number] #### [facility] [address] [place] [address] T4 [Mass/Vol] 9.5 microgram/dL High 4.6-9.1 [facility] Comment on above: Performed By: #### 1 [id number] #### [facility] [address] [place] [address] eGFRon 03-23-2024 eGFR 124 mL/min/1.73 m2 Normal >=59 [facility] Comment on above: Performed By: #### 1 [id number] #### [facility] [address] [place] [address] No Panel InformationOrdered By: Manjula Nevarez on 01-20-2024 Quick Strep (POC) [facility] BhCG Quanton 06-30-2023 Beta hCG Qnt <1 Normal 1-3 [facility] Comment on above: Result Comment: 'F N ON < 1 - 3' ' 0.2 - 1 WEEK = 5 TO 50' ' 1 - 2 WEEKS = 50 - 500' ' 2 - 3 WEEKS = 100 - 5000' ' 3 - 4 WEEKS = 500 - 38140' ' 4 - 5 WEEKS = 1000 - 54689' ' 5 - 6 WEEKS = 90273 - 454718' ' 6 - 8 WEEKS = 79051 - 855957' ' 8 - 12 WEEKS = 10261 - 702508' Performed By: #### 2 [id number] #### [facility] [address] [place] [address] Physician Orderon 06-30-2023 Physician Order [id number] Normal [facility] US ABD RIGHT UPPER QUADRANTo n 03-12-2023 [...] hydronephrosis. Ascites: None. IMPRESSION: No acute findings. Market Sales Manager: DOC Transcribe Date/Time: Mar 13 2023 11:44A Dictated by : TANNER RAMSEY MD This examination was interpreted and the report reviewed and electronically signed by: TANNER RAMSEY MD on Oct 20 2023 11:49AM EST [id number] [facility] SURGICAL PATHOLOGYOrdered By : Ayan Donaldson on 03-05-2023 Case Report Surgical Pathology R eport Case: [id number] Authorizing Provider: Shelly Parsons DO Collected: 03/03/2023 10:24 AM Ordering Location: Ambulatory Surgery Received: 03/03/2023 10:41 PM Pathologist: Ayan Donaldson MD Specimens: A) - SMALL INTESTINE BIOPSY, r/o celiac B) - STOMACH BIOPSY, r/o h pylori C) - STOMACH (GASTRIC) POLYP BIOPSY, polyps [facility] Work Phone: Diagnosis Comment [id number] M1xhb cYkOAFcwGOvU9XwrgblNTwvIC 4oVC9txZociAPwxOJxPGWvLxT tt6tok201iENmq4puSUHPgsqi vMl3aHaeI75oj9H4FlxgP87kk YSxXDA0FUCtQZSsbVPaIGYcYN M7KUXciARqR4mvXESkEO1voox sGHbeRRdhKECcbSY9LHIciUCj K3BwNYMhEOlaWCTrdzq7SyBpZ m7stBTkmTjwQHndEJOzQJFwLA ujIFNbUfCdKxgtQy4pXx5wPDY lbLJlFdRyoLHoGOF6yR8ahYAf wukmfoxjaJLsZDTqRXjcVR39d DYeFBNiGJ3uBLqaiUIduFasNN kzsKX8IMBpROLfJBVascDcGFW uLiBUaGVyZSBpcyBubyBldmlk FZ6iWDNmKjQdnXSczRXpxIBcp 9JnoUXbhEmfHP9obM8xsQAxfS == [facility] Work Phone: FINAL DIAGNOSIS b3ufvVJsVREdpEFnBJLn M1xhb vZqQAYleLCvE8GuclgwNKaqNK 1lPW3fuRbszVWoaCQaSYWaVaC nb2her296eILzi4ksXEBNhwcg jHz0xKodK29eu7O2AoapX80pk TTyYXD0AOPlGKJlbVBgEYFzZO Y8OCRokAUaF3xbOXPxHK3cflw hGLtwINdzUMRwcFO1FXQqfNAj A3BlPDRoWNxtNALjfej4XmDuF v9syKKdrPidTSqsWJMlHQOrAE esRBCdGdQqMW1iKWXmAUFfvW2 aUSGoh4FrgEjcuLeuKYHoPGRq FIjrZOMtt0EzKC11X88sEFB1f FBqQP6uWJNlQOrsz7P2gIXxYQ Ypz2GqPQprmZmqKSEezsslTWS mWw0kF8XbhZRccAytYpphrCM5 GxngoK8xWL0aA2DxNHHewVWiI CozXfQyN40cnkNpa7AeM1WlwJ BvUbTnwNIri8Ghz3b0hSCbBVT toWa0ZCZySWV2dr7gSORxhT75 hWTaWMNgVD1bRUYzDVWgkvLnM SRaqXIdWCFaLMJeJNmqSW99th TnXjZcDZY1fsmwVO63kT07tHF exIivMIRxpCVdz5Scg7c8qFUw bzLknXXgro5rxCdxBFYpsa9bm AUurRI2UkzhCBJbdDQnMGPkPE L4b41dX5fwQJRkjIxeldukMyi iaXPxEKO0JVasszJeVSXQjM1i cLBzC6slnrLzhR8cnEFwUFCvn iAtIFNlcGFyYXRlIGZyYWdtZW 74CE9tSVfew4BuoFYxa4f8unV dXk10kGVkFL39S88iDUT1yWEl BBGltbSnoXRqQLf7mEYyiWdvi 2lhLlxwYXJccGFyIEpFTCAxMC 5jIb1cNDGoAAQmmp9= [facility] Work Phone: Gross Description d6gmjKHhAPDbhUCgCMIh M1xhb bLbCUUreJTzT5UmelvnUDnyRV 2bZV9cwHqcoUMevWDkLOSoXaN pl0qsc171fEPnl9jiGXRKyepu iYk2gRciC46vu9X2McipF44em XPbGMN2XRJfMVZpeLArJJNeJD N1OXDbgZDdZ3ehMGJmMA1vsrd qIGfhCVokQRAgiUJ6HCKroHEz N9YtVPLdCXpvTYGsmyj4ToAeF n7wvVMqeHseDHhvHosnpKxkk4 VjdCBcXGlkIDUxMDAwIFxcZGI aJ4GIZXWtNMX6GxWdAUFfQBQC SCL8YSisHKH1VDBEBBItBEboS gP6IBCjHHBvEKUPZFCiCnB4QS AwMDIgXFxuaCBcXHQgMSBcXGZ kORplovJ1i9cvOAHavLIhFTD7 IFxcaWQgNTEwMDIgXFxkYiBPV lUtYaJ9Stc6IiQqNmJySBe0YS tqH7GBTUZqMGW3NmGtSVG1YvZ 2MIu9ZSIETl2wEUVwEYM3Aqe1 TwZhHNQ2UtKdCQb7FBFbTBtmw mUwBQxlEnvxONdpM87grGNuAN xwbGFpblxmczIyIEEuIFNNQUx RIMmJKURSMVvYGEULRO4GS3gx lWDeWCOkjwBdt3AfWTkdjTneY GYyVoOjeWsjwR3oIiTdYOSHNP QugDRnYDWpjyLye0SvCXhjrjR tehEsgpOeoIqlB6Fuh8IacVUb DZPvr2ckESWci8S2ECAbr6Y4F KZdZPCdoYMbvgtkCQ67FDydXF 72ONxbWV7iELCmDlTJt5WccTd 6XGJ5Wq5ynZUjPINxyqXvbcSj A5Udg1D0lWJwOGbiZDFydTRwZ LxhMKRzZZVhpXERi8RrVWiwEA KlE4WiI2PvoeG9JIPfyiftOix uyOhcp7UzyVMeWYrfBDEoJWGq HXrxUNAbK9AUWNWiDAA8WoDvU XNoMLn3IAd1SH8DLbVdREQcNX SdMylxEBOhGKe4EEsfMB6RGSP sRqF7IbA2WLK4SGK1Ptk0KQbi vHThELmfk1NpTqJeKOIlASnfo xX7QRHgvaAap8EfYQHdRZKdO1 dgCfKjJWootnPgYMGyLMJRH73 LR6vkEwfGUIKVKZOkwopxJGDg VKLdDwUaHUWdY5rvJuCfUYKfI IkqJWGvHlSdYyWcSJl9FFZwkI 8cEs5bbXJabV6cGBHmNY65lBI qlNocHBFsRMTitxCfHeI2WN3z IhNwj96cTRIcVyTgeLwmu3PwI FQnW3PjQ5W0pF4zJWTlZMQzUo D2MQMaBfU0WAXtAvYdbC5aQY9 7RKvopBQtsWYrkHV2YCPnlN5m o98uWAWdy5UykEKoJeJgjUNyJ MPkacIfx7OvUZjhlJooCHLjJi M0NVLtlKGyJEB2TO3xnQskVDT 1UUieVWYoE6ErO2VqNUojQUK8 GFIoMnDvSJEoNN1XAmEvAUNhM pg3XpQaMvI6HEn8BCUQFaTaHr UzDwm2ZcE0WwvvZXp0DLt3OIu BDrIuAWIqPBjaBtn5QLT0PUv2 NCBcXHQgMiBcXHNzIDMgXFxmb MWdXD0moFguQUYbYYCaJJC1IU ShtEAAf3ZcFACbGuFlDzHMCpD WVO2RLGEYDHiSEVFVCbpUYNXF L8yGDWPFWH4EI5jxaFWrSGUpi rNxd4JyPHgwiGdhFMWoZfEmqA vrkH9zJeAcWVUEBUWynKIqBAT szbUot7CeAWemooHcfgRskNhv MNUsLAKzifYhLqJ8CH8sJvJpc 09yTVCiHaOmbKqtt3AuMTQwJ5 IuW1T6nT9qWNXiPMFrEpG9BFZ dSeT3KTRoTlSpbS9aMK30JNui uUHylZObtAM9REXqhH3uh34sO SKme0QywOFrMmsgDEPxsHSsWJ ZrVAShvcESrg4cnwBvgGDtcG2 jsUxurfDwYNXmp3OxGYQkKLVx R4uyvlKtNW3aJHFgsD1oLqckJ TUwMCBFdWNsaWQgQXZlLiwgQ2 xuyyCkHZ6aQHUAQBI3UAZ4RPu kHPPuaBFsKWVqHxOyFFLtM5bo FURlEDoINI6udY6oORIxGODyH DIwMjMgMTozMiBBTVx+e1xlcG nbn2DpeUXxIU16DSJicIFgQBV 8LM9rmUcfMLB1 [facility] Work Phone: Performing Lab d5cekEOtYUYghWDmHzLl MDAwX BEna2mwEHBihZDpEuYlCwHxTm RvJhnshDSuIMGiLdJov4qmp50 6bKEdj8ziHJRqDuB1sIWuUFMu sZCbY884XDPrDZwzm8veo5OrT SWusXIey4L0IDAGusxffAg1vJ wlO19xz0O3OcerT3ocMNJxKBU tT2DwQT2pNKReFyd2ZIX1SBE7 FCLdOIFnV2TnUG0cUPRszOIeU Po6h4exxYukUUXjXRO5s4mgXY dgmcHaBP5uqw0kzDx4l3hbudS bSRRwEVAxcSRIMOSoF3IxsQvs Wq0qtAw9rZkfLmdfOTE4Sfm7L H3okl68kth4eLlaEHTdxupkBj V8NKmmWMGphmyzBAj0HXnwSPX bfDK1QDSjgUClE5HnKLYpJT2l dbx1JSH8FObiIUGiIaL4OZBzp ZWwPLYtcPlnLAmwj107SNI2Ud PzVN9cG0Gak7Q3jN6btCZqFOR pcFPdTaVhFVPmwq1ulPHgXAlr b7DpJYL9hmX9hUFzdZYhPKMfB K02Ollvc7IwNsqxy4FwZ79haP T3WEpwx7lbHI3qMbS4okQlDNn gu4xhaB8fRsB2OMylJH6eDX3a ICReuP0godcwOVKvCvWeulobD ILnzLelzjCoPh4jlRksAKT9WJ jbF3gwtC7qXwD3HXdrY7rjvK9 pZHe1ZBwzmDG8KCLfaW9cQZ0q ifhxt7jiQKuhFAkuJTQowlJ2r wT9YJRbjMJtG5OjuF3zBDDsXX 2cescqt1epNEG5UJdeIVNwBWD 6IbIkODJmb4Cizqh0YfVgl2Gc oWHfBXtsN49wt949WRCfqaLwR 1xwbGFpblxwbGFpblxmMFxmcz H7CRXlXWLaKSqeHSWxHBLeUyJ cbGFuZzEwMzNcaGljaFxmMVxk JcHbMNBpJXaaJ7yhXuSuOdUzH kZSvGFofu6nfZqbXStrxGEsyX KanNH6iL6eSNRejvKbxx8xRYS jjBJZnFO9MSfurjVpM4cyaglw OARnpDL3kMU9LFjis2EuvAUsY XOdTESbAYHOu5TmwM8fPXSoGR OKdVK7XVxyfoQcTO7GDLM5AHU oLUVkEDXQTUAgIYW8HCY8ZNq2 NDlccGFyXHBhclxwYXJkXHBsY VqoXFWhKSItEyQebAlthH5nZy DuLjSgIjmjDE5iASOjH6sjpVS yTKNkKKXrW3zlJxCekD5ukDwp MVxjZjJcZnMyMlxsdHJjaCBMY ANyekZ2h8L6MDfsnQTofbftCT mltuIdRGdycfbcHWBaGKzoN4i kFgRhYEUxrGckFIdsp4JsGBBf XMLgDmToVSmwYTB6t2I5BF4gv eaeYj5aMGQnIATkA04qPHRQJs QuXHBhcn0= [facility] Work Phone: [facility] Work Phone: ANES POSTPROC EVALon 023 ANES POSTPROC EVAL HNO ID: [id number] Author: Ralph Childs APRN.ACTUARIAL CONSULTANT Service: ? Author Type: Nurse School Treasurer Type: Anesthesia Postprocedure Evaluation Filed: 03/03/2023 10:32 [...] Scheduled Providers: Shelly Parsons DO Responsible Provider: Rlaph Childs APRN.CRNA Anesthesia Type: MAC ASA Status: [...] March 03, 2023 TIME: 10:31 AM CSN: [id number] Normal [facility] EGD Study observation Park sanchez 03-03-2023 [facility] Gastroenterology Gastrointestinal Endoscopy Patient Name: Saroj Membreno Procedure Date: 03/03/2023 10:10 AM Date of : 2000 Admit Type: Outpatient Age: 23 Room: [place] [address] Gender: Female Note Status: Finalized Attending MD: [...] referring physician. Procedure Code(s): --- Professional --- 52496, Esophagogastroduodenosc (more content not included)... PROVATION [facility] Radiology Study observation (narrative) [facility] HISTORY PHYSICALon HISTORY PHYSICAL HNO ID: [id number] Author: Shelly Parsons DO Service: Gastroenterology Author [...] Additional Comments: None Shelly Parsons DO Normal [facility] NURSING PROGon 03-03-2023 NURSING PROG HNO ID: [id number] Author: Meghann Kwan RN Service: Nursing Author [...] Escalante RN In Department: AMBULATORY SURGERY Normal [facility] NURSING PROG HNO ID: [id number] Author: Bia Price RN Service: ? Author [...] Price RN In Department: AMBULATORY SURGERY Normal [facility] SURGICAL PATHOLOGYon 023 CASE REPORT Normal [facility] Comment on above: Order Comment: Speci men Type: TISSUE SPECIMENOrdering Facility: [facility] Address: [address] [place] [address] Result Comment: Surg ical Pathology Report Case: [id number] Authorizing Provider: Shelly Parsons DO Collected: 03/03/2023 10:24 AM Ordering Location: Ambulatory Surgery Received: 03/03/2023 10:41 PM Pathologist: Ayan Donaldson MD Specimens: A) - SMALL INTESTINE BIOPSY, r/o celiac B) - STOMACH BIOPSY, r/o h pylori C) - STOMACH (GASTRIC) POLYP BIOPSY, polyps Performed By: #### S ####[facility] [id number] [address] DIAGNOSIS COMMENT B, C. No Helicobacte r pylori organisms are identified. No intestinal metaplasia is seen. There is no evidence of dysplasia or malignancy. Normal [facility] Comment on above: Order Comment: Speci men Type: TISSUE SPECIMENOrdering Facility: [facility] Address: [address] [place] [address] Performed By: #### S ####[facility] [id number] [address] FINAL DIAGNOSIS Normal [facility] Comment on above: Order Comment: Speci men Type: TISSUE SPECIMENOrdering Facility: [facility] Address: [address] [place] [address] Result Comment: A. D uodenum, biopsy: - Small bowel mucosa with no diagnostic abnormality. B. Stomach, biopsy: - Superficial fragment of gastric mucosa with reactive gastropathy-type changes. - Separate fragments of gastric oxyntic-type mucosa with no diagnostic abnormality. C. Stomach, polyps, biopsies: - Fundic gland polyp. - Separate fragment of gastric oxyntic-type mucosa with foveolar hyperplasia. JEL 03/05/2023 Performed By: #### S ####[facility] [id number] [address] [place] FINAL PERFORMING LAB Normal [facility] Comment on above: Order Comment: Speci men Type: TISSUE SPECIMENOrdering Facility: [facility] Address: [address] [place] [address] Result Comment: Diag nostic interpretation performed at [facility], [address] [place] [address] CLIA# [id number] Manager Leadership Development: Guilherme Gonzalez M.D. Performed By: #### S ####[facility]ORYCL[facility] [id number] [address] GROSS DESCRIPTION Normal [facility] Comment on above: Order Comment: Speci men Type: TISSUE SPECIMENOrdering Facility: [facility] Address: [address] [place] [address] Result Comment: A. S MALL INTESTINE BIOPSY [...] in one cassette. Gross examination performed at [facility], [address] [place] [address] KK March 04, 2023 1:32 AM Performed By: #### S ####[facility]ORATORYCLIA [id number] [address] [place] Upper GI endoscopy 10-10-2 023 Upper GI endoscopy [facility] Gastroenterology Gastrointestinal Endoscopy Patient Name: Saroj Membreno Procedure Date: 03/03/2023 10:10 AM Date of : 2000 Admit Type: Outpatient Age: 23 Room: [facility] 3 Gender: Female Note Status: Finalized Attending [...] referring physician. Procedure Code(s): --- Professional --- 31635, Esophagogastroduodenoscop y, flexible, transoral; with biopsy, single or multiple Diagnosis Code(s): --- Professional --- K22.89, Other specified disease of esophagus K31.7, Polyp of stomach and duodenum Z01.818, Encounter for other preprocedural examination E66.01, Morbid (severe) obesity due to excess calories CPT copyright 2020 [employer]. All rights reserved. The codes documented in this report are preliminary and upon electrical engineering drafting officer review may be revised to meet current compliance requirements. Scope In: 10:21:13 AM Scope Out: 10:25:25 AM DO Shelly Patel DO 03/03/2023 10:30:44 AM This report has been signed electronically by Shelly Parsons DO Number of Addenda: 0 Note Initiated On: 03/03/2023 10:10 AM Estimated Blood Loss: Estimated blood loss was minimal. Normal [facility] ANES PRE-OPon 02-16-2023 ANES PRE-OP HNO ID: [id number] Author: Ralph Childs APRN.ACTUARIAL CONSULTANT Service: ? Author Type: Nurse School Treasurer Type: Anesthesia Preprocedure Evaluation Filed: 03/03/2023 10:13 [...] 48 hours of Surgery/Procedure. SIGNATURE: Constance Schumacher APRN.ACTUARIAL CONSULTANT PATIENT NAME: Saroj Membreno DATE: February 16, 2023 TIME: 2:56 PM CSN: [id number] Normal [facility] CNOVon 02-11-2023 CNOV Office Visit (CARDAV ) ----- SAROJ MEMBRENO ([id number]) 2 F Date Time Provider Department 02/11/23 8:30 AM NURSE CARD [facility] MARIA M BARBOZA During your visit today, we recorded the following information about you: Roya Lawler RN 02/11/2023 8:34 AM Signed Ekg completed. Pt with no voiced complaints. Provider cc'd of completion. Referring Provider: ALLIE LARSON [[id number]] Allergies As of Date: 02/11/2023 (No Known Allergies) Date Reviewed: 02/04/2023 Reviewed by: Sasha Xie RD - Fully Assessed Reason for Visit: Cardiology Follow Up [1732] Visit Diagnoses:Pre-op evaluation [Z01.818] Class 3 severe obesity with serious comorbidity and body mass index (BMI) of 40.0 to 44.9 in adult, unspecified obesity type (HCC) [E66.01, Z68.41] Order(s):ECG COMPLETE [ECG01] Order #: [id number]. #:[id number] Prescriptions as of 02/11/2023 - ARIPiprazole [...] Status:Closed by ROYA LAWLER on 02/11/23 Normal [facility] ECG COMPLETEon 02-11-2023 ECG COMPLETE Ventricular Rate : 5 9 BPM Atrial Rate : 59 BPM P-R Interval : 166 ms QRS Duration : 74 ms Q-T Interval : 408 ms QTC Calculation(Bazett) : 403 ms Calculated P Williamson : 35 degrees Calculated R Williamson : 66 degrees Calculated T Williamson : 39 degrees SINUS BRADYCARDIA WITH SINUS ARRHYTHMIA BORDERLINE ECG Confirmed by STALIN HARRIS MD ([id number]) on 02/12/2023 9:13:18 PM NAME : SAROJ MEMBRENO PID : [id number] : 2000 Gender : Female Race : ORD : [id number] Procedure Date : Feb 11 2023 08:29:59 Edit Date : Feb 12 2023 21:13:23 Diagnosis: SINUS BRADYCARDIA WITH SINUS ARRHYTHMIA BORDERLINE ECG Confirmed by STALIN HARRIS MD ([id number]) on 02/12/2023 9:13:18 PM Test Reason : Location : 192 : AVCRD Overread By : STALIN HARRIS MD Edited By : STALIN HARRIS MD Referred By : ALLIE LARSON Acquired by : , Jeanine [facility] Dereck 02-10-2023 CNPN Telephone (WIQ) ----- SAROJ MEMBRENO ([id number]) 2 F Date Time Provider Department 02/10/23 CECE OBANDO During your visit today, we recorded the following information about you: Cece Obando, [facility] 02/10/2023 10:12 AM Signed Smoking Cessation Navigation Outcome of contact: Spoke with Intervention Chosen By Patient: Other Comments: Patient quit last week. [employer] Engineer/Smoking Cessation Navigator: Cece [facility]At[facility] Allie Larson APRN.[facility] 02/10/2023 11:32 AM Signed Noted, thank [...] Encounter Status:Closed by CECE OBANDO on 02/10/23 [facility] CNOVon 01-30-2023 CNOV Office Visit (BMIREJ ) ----- SAROJ MEMBRENO ([id number]) 2 F Date Time Provider Department 01/30/23 [...] goal weight prior to liquid fast: Per windows deployment technician Surgically Cleared with completion of the [...] potential med (more content not included)... Normal [facility] XR CHEST 2V FRONTAL/LATon XR CHEST 2V [...] tissues: Unremarkable. IMPRESSION: No acute radiographic abnormality. Market Sales Manager: PSCB Transcribe Date/Time: Jan 30 2023 12:41P Dictated by : ROD BELL MD This examination was interpreted and the report reviewed and electronically signed by: ROD BELL MD on Jan 30 2023 12:43PM EST [id number] Normal [facility] 01-21-2023 CNPN Telephone (WIQ) ----- SAROJ MEMBRENO ([id number]) 2 F Date Time Provider Department 01/21/23 CECE OBANDO WIIsidoro During your visit today, we recorded the following information about you: [facility]ce [facility] 01/21/2023 11:57 AM Signed Smoking Cessation Navigation Outcome of contact: Left Message Comments: A voicemail has been left for this patient regarding Tobacco Cessation support options. If this patient has any further questions they can email us at [email or web address] or call us at [phone]. [employer] Engineer/Smoking Cessation Navigator: Cece WingAt[facility] Allergies As of Date: 01/21/2023 (Not on File) Date Reviewed: 01/19/2023 Reviewed by: Allie Larson APRN.PROSTHETICS TECHNICIAN - Fully Assessed Reason for Visit: Smoking [...] 01/19/2023 Asthma [J45.909] 01/19/2023 Encounter Status:Closed by NOEMARIANN CECE WING on 01/21/23 [facility] CNOVon 01-19-2023 CNOV Office Visit (GENBMI ) ----- SAROJ MEMBRENO ([id number]) 2 F Date Time Provider Department 01/19/23 9:00 AM ALLIE LARSON During your visit today, we recorded the following information about you: Pulse Blood pressure Weight Height 84/minute 111/53 114.9 kg 1.622 m Last Period 12/29/22 Allie Larson APRN.CNP 01/19/2023 10:06 AM Signed BMI Obesity Medicine [...] Characterization of diet: Unstructured and skip meals. Minute Clerk of impaired eating habits:denies Eating Disorder no [...] Anxiety and depression Asthma No history of [place], COPD, +asthma, peptic ulcer disease, +GERD, dyslipidemia, [...] Adult) Pul (more content not included)... Normal [facility] CULTURE ABSCESSon 09-27-2022 CULTURE ABSCESS Culture Observations [...] S F Vancomycin 1 S F Normal [facility] Comment on above: Performed By: #### A BCESCX #### [facility] [address] [place] [address] Dr. Magali Phillips AMYLASEon 09-20-2022 Amylase [Catalytic activity/Vol] 33 U/L Normal 25-115 [facility] Comment on above: Performed By: #### A MY, CMP, LIPA #### [facility] [address] [place] [address] Dr. Magali Phillips CBC AUTO DIFFon 09-20-2022 BASO # 0.0 103/ul Normal 0.0-0.1 [facility] Comment on above: Performed By: #### C BC #### [facility] [address] [place] [address] Dr. Magali Phillips Basophils/100 WBC (Bld) 0.2 % Normal 0.2-2.0 [facility] Comment on above: Performed By: #### C BC #### [facility] [address] [place] [address] Dr. Magali Phillips EO # 0.0 103/ul Normal 0.0-0.7 [facility] Comment on above: Performed By: #### C BC #### [facility] [address] [place] [address] Dr. Magali Phillips Eosinophils/100 WBC (Bld) 0.3 % Critically low 0.9-7.0 [facility] Comment on above: Performed By: #### C BC #### [facility] [address] [place] [address] Dr. Magali Phillips Erythrocyte distribution width (RBC) [Ratio] 12.4 % Normal 11.0-15.0 [facility] Comment on above: Performed By: #### C BC #### [facility] [address] [place] [address] Dr. Magali Phillips Hematocrit (Bld) [Volume fraction] 43.8 % Normal 36.0-48.0 [facility] Comment on above: Performed By: #### C BC #### [facility] [address] [place] [address] Dr. Magali Phillips Hemoglobin (Bld) [Mass/Vol] 14.9 g/dL Normal 12.0-16.0 [facility] Comment on above: Performed By: #### C BC #### [facility] [address] [place] [address] Dr. Magali Phillips IG # 0.03 10e3/ul Normal 0.00-0.03 [facility] Comment on above: Performed By: #### C BC #### [facility] [address] [place] [address] Dr. Magali Phillips IG % 0.2 % Normal 0.0-0.5 [facility] Comment on above: Performed By: #### C BC #### [facility] [address] [place] [address] Dr. Magali Phillips LYMPH # 2.6 103/ul Normal 1.2-3.8 [facility] Comment on above: Performed By: #### C BC #### [facility] [address] [place] [address] Dr. Magali Phillips Lymphocytes/100 WBC (Bld) 21.0 % Normal 20.5-60.0 [facility] Comment on above: Performed By: #### C BC #### [facility] [address] [place] [address] Dr. Magali Phillips MANUAL DIFF REQ NO Normal [facility] Comment on above: Performed By: #### C BC #### [facility] [address] [place] [address] Dr. Magali Phillips MCH (RBC) [Entitic mass] 30.2 pg Normal 26.7-34.0 [facility] Comment on above: Performed By: #### C BC #### [facility] [address] [place] [address] Dr. Magali Phillips MCHC (RBC) [Mass/Vol] 34.0 g/dL Normal 29.9-35.2 [facility] Comment on above: Performed By: #### C BC #### [facility] [address] [place] [address] Dr. Magali Phillips MCV (RBC) [Entitic vol] 88.8 fL Normal 81.0-99.0 [facility] Comment on above: Performed By: #### C BC #### [facility] [address] [place] [address] Dr. Magali Phillips MONO # 1.0 103/ul Critically high 0.3-0.8 [facility] Comment on above: Performed By: #### C BC #### [facility] [address] [place] [address] Dr. Magali Phillips Monocytes/100 WBC (Bld) 8.0 % Normal 1.7-12.0 [facility] Comment on above: Performed By: #### C BC #### [facility] [address] [place] [address] Dr. Magali Phillips NEUT # 8.6 103/ul Critically high 1.4-6.5 [facility] Comment on above: Performed By: #### C BC #### [facility] [address] [place] [address] Dr. Magali Phillips Neutrophils/100 WBC (Bld) 70.3 % Normal 43.0-75.0 [facility] Comment on above: Performed By: #### C BC #### [facility] [address] [place] [address] Dr. Magali Phillips Platelet mean volume (Bld) [Entitic vol] 9.6 fL Normal 9.5-13.5 [facility] Comment on above: Performed By: #### C BC #### [facility] [address] [place] [address] Dr. Magali Phillips PLT 279 103/ul Normal 150-450 [facility] Comment on above: Performed By: #### C BC #### [facility] [address] [place] [address] Dr. Magali Phillips RBC 4.93 106/ul Normal 4.20-5.40 [facility] Comment on above: Performed By: #### C BC #### [facility] [address] [place] [address] Dr. Magali Phillips WBC 12.2 103/ul Critically high 4.0-11.0 [facility] Comment on above: Performed By: #### C BC #### [facility] [address] [place] [address] Dr. Magali Phillips CULTURE URINEon 09-20-2022 CULTURE URINE Culture Observations : MODERATE GROWTH OF MIXED GENITAL DEE. NO POTENTIAL PATHOGENS SEEN. Normal [facility] Comment on above: Performed By: #### U RCX #### [facility] [address] [place] [address] Dr. Magali Phillips ER URINE PROFILEon 3 Bilirubin Ql (U) Negative Normal NEGATIVE [facility] Comment on above: Performed By: #### MEGA CLAROSRO #### [facility] [address] [place] [address] Dr. Magali Phillips Clarity (U) CLEAR Normal CLEAR [facility] Comment on above: Performed By: #### MEGA CLAROSRO #### [facility] [address] [place] [address] Dr. Magali Phillips Color (U) LT. YELLOW Normal YELLOW [facility] Comment on above: Performed By: #### MEGA CLAROSRO #### [facility] [address] [place] [address] Dr. Magali KAPOOR A micrscopic examina tion will be performed if indicated. Normal [facility] Comment on above: Performed By: #### Mulu ESCOBEDO UMICRO #### [facility] [address] [place] [address] Dr. Magali Phillips Glucose Ql (U) Negative Normal NEGATIVE [facility] Comment on above: Performed By: #### Mulu ESCOBEDO UMICRO #### [facility] [address] [address] [address] Magali Phillips Hemoglobin Ql (U) MODERATE Abnormal NEGATIVE [facility] Comment on above: Performed By: #### Mulu ESCOBEDO UMICRO #### [facility] [address] [place] [address] Dr. Magali Phillips Ketones Ql (U) Negative Normal NEGATIVE [facility] Comment on above: Performed By: #### Mulu ESCOBEDO UMICRO #### [facility] [address] [place] [address] Dr. Magali Phillips LEUKOCYTES MODERATE Abnormal NEGATIVE [facility] Comment on above: Performed By: #### Muul ESCOBEDO UMICRO #### [facility] [address] [place] [address] Dr. Magali Phillips Nitrite Ql (U) Negative Normal NEGATIVE [facility] Comment on above: Performed By: #### Mulu ESCOBEDO UMICRO #### [facility] [address] [place] [address] Dr. Magali Phillips pH (U) 5.5 [pH] Normal 5-9 [facility] Comment on above: Performed By: #### Mulu ESCOBEDO UMICRO #### [facility] [address] [place] [address] Dr. Magali Phillips SPEC GRAVITY 1.025 Normal 1.005-<=1.0 25 [facility] Comment on above: Performed By: #### Mulu ESCOBEDO UMICRO #### [facility] [address] [place] [address] Dr. Magali Phillips UA PROTEIN Negative Normal NEGATIVE/ TRACE [facility] Comment on above: Performed By: #### BRIAN CLAROSICRO #### [facility] [address] [place] [address] Dr. Magali Phillips UR MICRO IND INDICATED Normal [facility] Comment on above: Performed By: #### E MEGA ESCOBEDORO #### [facility] [address] [place] [address] Dr. Magali Phillips Urobilinogen Qn (U) 0.2 {Nickie'U}/dL Normal 0.2 - 1. 0 [facility] Comment on above: Performed By: #### E MEGA ESCOBEDORO #### [facility] [address] [place] [address] Dr. Magali Phillips LIPASEon 09-20-2022 Lipase [Catalytic activity/Vol] 62.0 U/L Critically low 73.0-393.0 [facility] Comment on above: Performed By: #### A MY, CMP, LIPA #### [facility] [address] [place] [address] Dr. Magali Phillips OCC BLD IMMUNO SCREENon 08-24 OCCULT BLOOD Negative Normal NEGATIVE [facility] Comment on above: Performed By: #### O BSCRN #### [facility] [address] [place] [address] Dr. Magali Phillips PROF 14(COMP METB)on 023 Albumin [Mass/Vol] 4.0 g/dL Normal 3.4-5.0 [facility] Comment on above: Performed By: #### A MY, CMP, LIPA #### [facility] [address] [place] [address] Dr. Magali Phillips Albumin/Globulin [Mass ratio] 1.0 {ratio} Normal [facility] Comment on above: Performed By: #### A MY, CMP, LIPA #### [facility] [address] [place] [address] Dr. Magali Phillips ALP [Catalytic activity/Vol] 117 U/L Critically high 46-116 [facility] Comment on above: Performed By: #### A MY, CMP, LIPA #### [facility] [address] [place] [address] Dr. Magali Phillips ALT [Catalytic activity/Vol] 24 U/L Normal 14-59 [facility] Comment on above: Performed By: #### A MY, CMP, LIPA #### [facility] [address] [address] [address] Magali Phillips Anion gap [Moles/Vol] 12.5 mmol/L Normal [facility] Comment on above: Performed By: #### A MY, CMP, LIPA #### [facility] [address] [address] [address] Magali Phillips AST [Catalytic activity/Vol] 17 U/L Normal 15-37 [facility] Comment on above: Performed By: #### A MY, CMP, LIPA #### [facility] [address] [place] [address] Dr. Magali Phillips Bilirubin [Mass/Vol] 1.0 mg/dL Normal 0.2-1.0 [facility] Comment on above: Performed By: #### A MY, CMP, LIPA #### [facility] [address] [place] [address] Dr. Magali Phillips Calcium [Mass/Vol] 8.8 mg/dL Normal 8.5-10.1 [facility] Comment on above: Performed By: #### A MY, CMP, LIPA #### [facility] [address] [place] [address] Dr. Magali Phillips Chloride [Moles/Vol] 106 mmol/L Normal 98-107 [facility] Comment on above: Performed By: #### A MY, CMP, LIPA #### [facility] [address] [place] [address] Dr. Magali Phillips CO2 [Moles/Vol] 24.2 mmol/L Normal 21.0-32.0 [facility] Comment on above: Performed By: #### A MY, CMP, LIPA #### [facility] [address] [address] [address] Magali Phillips Creatinine [Mass/Vol] 0.71 mg/dL Normal 0.55-1.02 [facility] Comment on above: Performed By: #### A MY, CMP, LIPA #### [facility] [address] [address] [address] Magali Phillips EGFR-AF LUXEMBOURGER >60 Normal >=60 [facility] Comment on above: Performed By: #### A MY, CMP, LIPA #### [facility] [address] [address] [address] Magali Phillips EGFR-NON AF LUXEMBOURGER >60 Normal >=60 [facility] Comment on above: Performed By: #### A MY, CMP, LIPA #### [facility] [address] [address] [address] Magali Phillips Globulin (S) [Mass/Vol] 4.0 g/dL Normal [facility] Comment on above: Performed By: #### A MY, CMP, LIPA #### [facility] [address] [address] [address] Magali Phillips Glucose [Mass/Vol] 91 mg/dL Normal 74-106 [facility] Comment on above: Performed By: #### A MY, CMP, LIPA #### [facility] [address] [address] [address] Magali Phillips Potassium [Moles/Vol] 3.7 mmol/L Normal 3.5-5.1 [facility] Comment on above: Performed By: #### A MY, CMP, LIPA #### [facility] [address] [address] [address] Magali Phillips Protein [Mass/Vol] 8.0 g/dL Normal 6.4-8.2 [facility] Comment on above: Performed By: #### A MY, CMP, LIPA #### [facility] [address] [address] [address] Magali Phillips Sodium [Moles/Vol] 139 mmol/L Normal 136-145 [facility] Comment on above: Performed By: #### A MY, CMP, LIPA #### [facility] [address] [address] [address] Magali Phillips Urea nitrogen [Mass/Vol] 8.0 mg/dL Normal 7.0-18.0 [facility] Comment on above: Performed By: #### A MY, CMP, LIPA #### [facility] [address] [place] [address] Dr. Magali Phillips Urea nitrogen/Creatinine [Mass ratio] 11.3 mg/mg Normal [facility] Comment on above: Performed By: #### A MY, CMP, LIPA #### [facility] [address] [place] [address] Dr. Magali Phillips URINE MICROSCOPIC ONLYon BACTERIA TRACE Abnormal NONE SEEN [facility] Comment on above: Performed By: #### E RUR, UMICRO #### [facility] [address] [place] [address] Dr. Magali Phillips Bacteria identified Cx Nom (U) INDICATED Normal [facility] Comment on above: Performed By: #### E RUR, UMICRO #### [facility] [address] [place] [address] Dr. Magali Phillips CAST SEEN Abnormal NONE SEEN [facility] Comment on above: Performed By: #### E RUR, UMICRO #### [facility] [address] [place] [address] Dr. Magali Phillips Crystals LM Nom (Urine sed) NONE SEEN Normal NONE SEEN [facility] Comment on above: Performed By: #### E RUR, UMICRO #### [facility] [address] [place] [address] Dr. Magali Phillips Epithelial cells LM Ql (Urine sed) FEW Abnormal NONE SEEN /RARE [facility] Comment on above: Performed By: #### E RUR, UMICRO #### [facility] [address] [place] [address] Dr. Magali Phillips HYALINE CAST RARE Normal [facility] Comment on above: Performed By: #### E RUR, UMICRO #### [facility] [address] [place] [address] Dr. Magali Phillips MUCOUS NONE SEEN Normal NONE SEEN [facility] Comment on above: Performed By: #### E RUR, UMICRO #### [facility] [address] [address] [address] Magali Phillips RBC 5-10 Abnormal 0-2 [facility] Comment on above: Performed By: #### E RUR, UMICRO #### [facility] [address] [address] [address] Magali Phillips TRICH SEEN Abnormal NONE SEEN [facility] Comment on above: Performed By: #### E RUR, UMICRO #### [facility] [address] [address] [address] Magali Phillips WBC 5-10 Abnormal NONE SEEN [facility] Comment on above: Performed By: #### E RUR, UMICRO #### [facility] [address] [address] [address] Magali Phillips Urinalysis - AUTOMATEDon Appearance (U) clear [employer] Other Bilirubin Ql (U) Negative [employer] Other Color (U) yellow [employer] Other Glucose Ql (U) Negative [employer] Other Hemoglobin Ql (U) Negative [employer] Other Ketones Ql (U) Negative [employer] Other Leukocyte esterase Test strip Ql (U) trace [employer] Other Nitrite Ql (U) Negative [employer] Other pH (U) 6.5 [pH] [employer] Other Protein Ql (U) Negative [employer] Other Specific gravity (U) [Rel density] 1.025 [employer] Other Urobilinogen (U) [Mass/Vol] 1.0 mg/dL [employer] Other Urinalysis - AUTOMATED [employer] Other Urine Cultureon 07-07-2022 Bacteria identified Cx Nom (U) [employer] Other Automated erythrocytes count in urine sediment (number/area)Ordered By: Michelle Arthur on 07-04-2022 RBC Auto (Urine sed) [#/Area] 3-4 [HPF] 0-4 [facility] Automated leukocytes count i n urine sediment (number/area)Ordered By: Michelle Ortizimore on 07-04-2022 WBC Auto (Urine sed) [#/Area] 5-9 [HPF] 0-4 [facility] Bilirubin Test strip Ql (U)O rdered By: Michelle Ortizimore on 07-04-2022 Bilirubin Ql (U) Negative Negative [facility] Color Auto (U)Ordered By: Joanne Arthur on 07-04-2022 Color (U) Yellow Yellow [facility] HCG ( test) IA.rapi d Ql (U)Ordered By: Michelle Ortizimore on 07-04-2022 HCG ( test) Ql (U) Negative [facility] Ketones Auto test strip (U) [Mass/Vol]Ordered By: Michelle Ortizimore on 07-04-2022 Ketones (U) [Mass/Vol] Negative Negative [facility] - UrinalysisOrder ed By: Michelle Arthur on 07-04-2022 Hyaline casts LM Ql (Urine sed) 0-8 [LPF] 0-8 [facility] Nitrite Test strip Ql (U)Ord ered By: Michelle Ortizimore on 07-04-2022 Nitrite Ql (U) Negative Negative [facility] Protein Auto test strip (U) [Mass/Vol]Ordered By: Michelle Ortizimore on 07-04-2022 Protein (U) [Mass/Vol] Negative Negative [facility] Specific gravity Auto test s trip (U) [Rel density]Ordered By: Michelle Ortizimore on 07-04-2022 Specific gravity (U) [Rel density] 1.016 1.001-1.030 [facility] Squamous epithelial cells de tection in urine sediment by light microscopyOrdered By: Michelle Bullimore on 07-04-2022 Epithelial cells.squamous LM Ql (Urine sed) 1-2 [HPF] 0-2 [facility] Urine bacteria detection by automated methodOrdered By: Michelle Arthur on 07-04-2022 Bacteria Auto Ql (U) None seen None Seen [facility] Urine clarity by refractomet ry automatedOrdered By: Michelle Arthur on 07-04-2022 Clarity Refractometry automated (U) Clear Clear [facility] Urine culture routineOrdered By: Michelle Arthur on 07-04-2022 Bacteria identified Cx Nom (U) 2 Days [facility] Urine glucose measurement by automated test strip (mass/volume)Ordered By: Michelle Arthur on 07-04-2022 Glucose Auto test strip (U) [Mass/Vol] Normal mg/dL Normal [facility] Urine hemoglobin detection b y automated test stripOrdered By: Michelle Arthur on 07-04-2022 Hemoglobin Auto test strip Ql (U) Negative Negative [facility] Urine leukocyte esterase det ection by automated test stripOrdered By: Michelle Arthur on 07-04-2022 Leukocyte esterase Auto test strip Ql (U) 2+ Negative [facility] Urobilinogen Auto test strip (U) [Mass/Vol]Ordered By: Michelle Arthur on 07-04-2022 Urobilinogen (U) [Mass/Vol] Normal mg/dL Normal [facility] pH Auto test strip (U)Ordere d By: Michelle Arthur on 07-04-2022 pH (U) 7.0 [pH] 5.0-9.0 [facility] COVID Quick Testingon 2020 Result Negative [employer] Other Vital Signs Date Time Vital Sign Value Performing Clinician Facility 03-06-2025 10:04-0400 Body mass index (BMI) [Ratio] 52.66 kg/m2 [employer] Phone: [facility] 03-06-2025 10:04-0400 Body weight 134.83 kg [employer] Phone: [facility] 03-06-2025 10:04-0400 Diastolic blood pressure 70 mm[Hg] [employer] Phone: [facility] 03-06-2025 10:04-0400 Systolic blood pressure 110 mm[Hg] Rodrigo Thomas DO Work Phone: [facility] 02-09-2025 14:48-0400 Body mass index (BMI) [Ratio] 52.58 kg/m2 Ira [place] PA Work Phone: [facility] 02-09-2025 14:48-0400 Body weight 134.63 kg Ira Camila PA Work Phone: [facility] 02-09-2025 14:48-0400 Diastolic blood pressure 62 mm[Hg] Ira Camila PA Work Phone: [facility] 02-09-2025 14:48-0400 Systolic blood pressure 100 mm[Hg] Ira Camila PA Work Phone: [facility] 02-07-2025 10:25-0400 Body mass index (BMI) [Ratio] 52.66 kg/m2 Ira Camila PA Work Phone: [facility] 02-07-2025 10:25-0400 Body weight 134.83 kg Ira [place] PA Work Phone: [facility] 02-07-2025 10:25-0400 Diastolic blood pressure 70 mm[Hg] Ira Camila PA Work Phone: [facility] 02-07-2025 10:25-0400 Systolic blood pressure 100 mm[Hg] Ira [place] PA Work Phone: [facility] 02-06-2025 22:42-0400 Body height 157.48 cm [facility] 02-06-2025 22:42-0400 Body temperature 98.3 [degF] [facility] 02-06-2025 22:42-0400 Body weight 136.7 kg [facility] 02-06-2025 22:42-0400 Diastolic blood pressure 72 mm[Hg] [facility] 02-06-2025 22:42-0400 Heart rate 81 /min [facility] 02-06-2025 22:42-0400 Respiratory rate 22 /min [facility] 02-06-2025 22:42-0400 SaO2% (BldA) [Mass fraction] 98 % [facility] 02-06-2025 22:42-0400 Systolic blood pressure 121 mm[Hg] [facility] 01-19-2025 09:01-0400 Body mass index (BMI) [Ratio] 52.97 kg/m2 Rodrigo Thomas DO Work Phone: [facility] 01-19-2025 09:01-0400 Body weight 135.63 kg Rodrigo Thomas DO Work Phone: [facility] 01-19-2025 09:01-0400 Diastolic blood pressure 76 mm[Hg] Rodrigo Thomas DO Work Phone: [facility] 01-19-2025 09:01-0400 Systolic blood pressure 122 mm[Hg] Rodrigo Thomas DO Work Phone: [facility] 12-19-2024 09:37-0400 Body mass index (BMI) [Ratio] 53.85 kg/m2 Wesley Visci DO Work Phone: [facility] 12-19-2024 09:37-0400 Body weight 137.89 kg Wesley Visci DO Work Phone: [facility] 12-19-2024 09:37-0400 Diastolic blood pressure 72 mm[Hg] Wesley Visci DO Work Phone: [facility] 12-19-2024 09:37-0400 Systolic blood pressure 110 mm[Hg] Wesley Visci DO Work Phone: [facility] 11-15-2024 10:13-0400 Body height 157.48 cm [facility] 11-15-2024 10:13-0400 Body mass index (BMI) [Ratio] 54.8 kg/m2 [facility] 11-15-2024 10:13-0400 Body temperature 98.4 [degF] [facility] 11-15-2024 10:13-0400 Body weight 136.07 kg [facility] 11-15-2024 10:13-0400 Diastolic blood pressure 63 mm[Hg] [facility] 11-15-2024 10:13-0400 Heart rate 76 /min [facility] 11-15-2024 10:13-0400 SaO2% (BldA) [Mass fraction] 98 % [facility] 11-15-2024 10:13-0400 Systolic blood pressure 109 mm[Hg] [facility] 11-09-2024 10:43-0400 Body temperature 98 [degF] [facility] 11-09-2024 10:43-0400 Diastolic blood pressure 69 mm[Hg] [facility] 11-09-2024 10:43-0400 Heart rate 76 /min [facility] 11-09-2024 10:43-0400 Respiratory rate 18 /min [facility] 11-09-2024 10:43-0400 SaO2% (BldA) [Mass fraction] 98 % [facility] 11-09-2024 10:43-0400 Systolic blood pressure 96 mm[Hg] [facility] 11-07-2024 11:53-0400 Body mass index (BMI) [Ratio] 53.32 kg/m2 Ira ELMORE Work Phone: [facility] 11-07-2024 11:53-0400 Body weight 136.53 kg Ira ELMORE Work Phone: [facility] 11-07-2024 11:53-0400 Diastolic blood pressure 68 mm[Hg] Ira ELMORE Work Phone: [facility] 11-07-2024 11:53-0400 Systolic blood pressure 110 mm[Hg] Ira ELMORE Work Phone: [facility] 02-02-2024 09:22-0400 Body height 157.48 cm [facility] 02-02-2024 09:22-0400 Body mass index (BMI) [Ratio] 49.6 kg/m2 [facility] 02-02-2024 09:22-0400 Body temperature 98.1 [degF] [facility] 02-02-2024 09:22-0400 Body weight 123.09 kg [facility] 02-02-2024 09:22-0400 Heart rate 81 /min [facility] 02-02-2024 09:22-0400 Respiratory rate 18 /min [facility] 02-02-2024 09:22-0400 SaO2% (BldA) [Mass fraction] 99 % [facility] 01-20-2024 12:01-0400 Body height 157.48 cm [facility] 01-20-2024 12:01-0400 Body mass index (BMI) [Ratio] 48.9 kg/m2 [facility] 01-20-2024 12:01-0400 Body temperature 98.3 [degF] [facility] 01-20-2024 12:01-0400 Body weight 121.27 kg [facility] 01-20-2024 12:01-0400 Heart rate 107 /min [facility] 01-20-2024 12:01-0400 Respiratory rate 18 /min [facility] 01-20-2024 12:01-0400 SaO2% (BldA) [Mass fraction] 99 % [facility] 11-13-2023 10:26-0400 Body height 157.48 cm [facility] 11-13-2023 10:26-0400 Body mass index (BMI) [Ratio] 49 kg/m2 [facility] 11-13-2023 10:26-0400 Body temperature 97.8 [degF] [facility] 11-13-2023 10:26-0400 Body weight 121.56 kg [facility] 11-13-2023 10:26-0400 Heart rate 82 /min [facility] 11-13-2023 10:26-0400 SaO2% (BldA) [Mass fraction] 98 % [facility] 09-16-2023 09:45-0400 Body height 157.48 cm [facility] 09-16-2023 09:45-0400 Body mass index (BMI) [Ratio] 48.4 kg/m2 [facility] 09-16-2023 09:45-0400 Body temperature 98.6 [degF] [facility] 09-16-2023 09:45-0400 Body weight 120.25 kg [facility] 09-16-2023 09:45-0400 Heart rate 51 /min [facility] 09-16-2023 09:45-0400 Respiratory rate 18 /min [facility] 09-16-2023 09:45-0400 SaO2% (BldA) [Mass fraction] 98 % [facility] 03-03-2023 10:45-0400 Heart rate 67 /min Shelly Ly DO Work Phone: [facility] 03-03-2023 10:45-0400 Respiratory rate 12 /min Shelly Ly DO Work Phone: [facility] 03-03-2023 10:45-0400 SaO2% (BldA) [Mass fraction] 100 % Shelly Ly DO Work Phone: [facility] 03-03-2023 10:40-0400 Diastolic blood pressure 72 mm[Hg] Shelly Ly DO Work Phone: [facility] 03-03-2023 10:40-0400 Systolic blood pressure 115 mm[Hg] Shelly Ly DO Work Phone: [facility] 02-04-2023 10:25-0400 Body height 162.[address] Work Phone: [facility] 02-04-2023 10:25-0400 Body weight 113.[address] Work Phone: [facility] 01-19-2023 09:24-0400 Body height 162.2 cm Allie Larson APRN.PROSTHETICS TECHNICIAN Work Phone: [facility] 01-19-2023 09:24-0400 Body weight 114.92 kg Allie Larson APRN.PROSTHETICS TECHNICIAN Work Phone: [facility] 01-19-2023 09:24-0400 Diastolic blood pressure 53 mm[Hg] Alliemariana Larson [employer].PROSTHETICS TECHNICIAN Work Phone: [facility] 01-19-2023 09:24-0400 Heart rate 84 /min Allie Neo [employer].PROSTHETICS TECHNICIAN Work Phone: [facility] 01-19-2023 09:24-0400 Systolic blood pressure 111 mm[Hg] Allie Neo [employer].PROSTHETICS TECHNICIAN Work Phone: [facility] 07-07-2022 17:00-0500 Body height 160.02 cm Radhika Enrique Other [employer] Other 07-07-2022 17:00-0500 Body mass index (BMI) [Ratio] 48.35 kg/m2 Radhika Iva Other [employer] Other 07-07-2022 17:00-0500 Body temperature 98 [degF] Radhika Iva Other [employer] Other 07-07-2022 17:00-0500 Body weight 123.83 kg Radhika Iva Other [employer] Other 07-07-2022 17:00-0500 Diastolic blood pressure 60 mm[Hg] Radhika Iva Other [employer] Other 07-07-2022 17:00-0500 Respiratory rate 18 /min Radhika Iva Other [employer] Other 07-07-2022 17:00-0500 SaO2% (BldA) [Mass fraction] 99 % Radhika Enrique Other [employer] Other 07-07-2022 17:00-0500 Systolic blood pressure 111 mm[Hg] Radhikacamilo Enrique Other [employer] Other 07-04-2022 11:16-0500 Body height 160.02 cm [facility] 07-04-2022 11:16-0500 Body temperature 97.8 [degF] [facility] 07-04-2022 11:16-0500 Body weight 124 kg [facility] 07-04-2022 11:16-0500 Diastolic blood pressure 71 mm[Hg] [facility] 07-04-2022 11:16-0500 Heart rate 75 /min [facility] 07-04-2022 11:16-0500 Respiratory rate 22 /min [facility] 07-04-2022 11:16-0500 SaO2% (BldA) [Mass fraction] 100 % [facility] 07-04-2022 11:16-0500 Systolic blood pressure 118 mm[Hg] [facility] 01-27-2022 15:10-0400 Body height 160.02 cm Radhika Iva Other [employer] [facility] [employer] Other 01-27-2022 15:10-0400 Body mass index (BMI) [Ratio] 46.05 kg/m2 Radhika Iva Other [employer] Other 01-27-2022 15:10-0400 Body temperature 98 [degF] Radhika Jovelmond Other [employer] Other 01-27-2022 15:10-0400 Body weight 117.94 kg Radhika Jovelmond Other [employer] Other 01-27-2022 15:10-0400 Diastolic blood pressure 63 mm[Hg] Radhika Iva Other [employer] Other 01-27-2022 15:10-0400 Respiratory rate 16 /min Radhika Iva Other [employer] Other 01-27-2022 15:10-0400 SaO2% (BldA) [Mass fraction] 100 % Radhika Enrique Other [employer] Other 01-27-2022 15:10-0400 Systolic blood pressure 100 mm[Hg] Radhika Enrique Other [employer] Other 11-11-2021 17:30-0400 Body height 160.02 cm Maria R Vacaault Other [employer] Other 11-11-2021 17:30-0400 Body mass index (BMI) [Ratio] 45.52 kg/m2 Maria R Naif Other [employer] Other 11-11-2021 17:30-0400 Body temperature 98.2 [degF] Maria R Naif Other [employer] Other 11-11-2021 17:30-0400 Body weight 116.58 kg Maria R Naif Other [employer] Other 11-11-2021 17:30-0400 Diastolic blood pressure 70 mm[Hg] Maria R Naif Other [employer] Other 11-11-2021 17:30-0400 Respiratory rate 16 /min Maria R Naif Other [employer] Other 11-11-2021 17:30-0400 SaO2% (BldA) [Mass fraction] 99 % Maria R Naif Other [employer] Other 11-11-2021 17:30-0400 Systolic blood pressure 114 mm[Hg] Maria R Disla Other [employer] Other 10-14-2021 12:00-0400 Body height 160.02 cm Maria R Disla Other [employer] Other 10-14-2021 12:00-0400 Body mass index (BMI) [Ratio] 46.58 kg/m2 Maria R Disla Other [employer] Other 10-14-2021 12:00-0400 Body temperature 98.2 [degF] Maria R Disla Other [employer] Other 10-14-2021 12:00-0400 Body weight 119.3 kg Maria R Disla Other [employer] Other 10-14-2021 12:00-0400 Diastolic blood pressure 68 mm[Hg] Maria R Disla Other [employer] Other 10-14-2021 12:00-0400 Respiratory rate 16 /min Maria R Disla Other [employer] Other 10-14-2021 12:00-0400 SaO2% (BldA) [Mass fraction] 98 % Maria R Disla Other [employer] Other 10-14-2021 12:00-0400 Systolic blood pressure 106 mm[Hg] Maria R Disla Other [employer] Other 03-30-2021 14:45-0400 Body temperature 96.4 [degF] Maria R [place] Other [employer] Other 03-30-2021 14:45-0400 SaO2% (BldA) [Mass fraction] 98 % Maria R Disla Other [employer] Other 03-07-2021 16:55-0400 Body height 160.02 cm Maria R Disla Other [employer] Other 03-07-2021 16:55-0400 Body mass index (BMI) [Ratio] 47.11 kg/m2 Maria R Disla Other [employer] Other 03-07-2021 16:55-0400 Body temperature 97.6 [degF] Maria R Disla Other [employer] Other 03-07-2021 16:55-0400 Body weight 120.66 kg Maria R Disla Other [employer] Other 03-07-2021 16:55-0400 Diastolic blood pressure 71 mm[Hg] Maria R Disla Other [employer] Other 03-07-2021 16:55-0400 Respiratory rate 18 /min Maria R Disla Other [employer] Other 03-07-2021 16:55-0400 SaO2% (BldA) [Mass fraction] 98 % Maria R Disla Other Conjecta Other 03-07-2021 16:55-0400 Systolic blood pressure 106 mm[Hg] Maria R Vacaault Other Conjecta Other 02-26-2021 14:00-0400 Body height 160.02 cm Maria R Vacaault Other Conjecta Other 02-26-2021 14:00-0400 Body mass index (BMI) [Ratio] 46.05 kg/m2 Maria R Disla Other Conjecta Other 02-26-2021 14:00-0400 Body temperature 97.5 [degF] Maria R Disla Other Conjecta Other 02-26-2021 14:00-0400 Body weight 117.94 kg Maria R Disla Other Conjecta Other 02-26-2021 14:00-0400 SaO2% (BldA) [Mass fraction] 99 % Maria R Disla Other Conjecta Other Encounters Encounter Date Encounter Type Care Provider Facility Start: 03-06-2025 End: 03-06-2025 Bamboo flowsheet Rodrigo Thomas DO Work Phone: [facility] Start: 03-06-2025 End: 03-06-2025 Bamboo flowsheet Rodrigo Thomas DO Work Phone: [facility] Start: 03-06-2025 End: 03-06-2025 Office outpatient visit 15 minutes Rodrigo Thomas DO Work Phone: [facility] Comment on above: Screening, , for anatomic survey ([facility]); Second trimester ([facility]); 19 weeks gestation of ([facility]) Start: 03-06-2025 End: 03-06-2025 ambulatory RODRIGO THOMAS Not Available Start: 02-09-2025 End: 02-09-2025 Office outpatient visit 15 minutes Ira ELMORE Work Phone: [facility] Comment on above: 15 weeks gestation o f ([facility]); Second trimester ([facility]); Blood pressure check; Nonintractable headache, unspecified chronicity pattern, unspecified headache type; Nausea Start: 02-09-2025 End: 02-09-2025 Patient encounter status Ira [place] PA Work Phone: [facility] Start: 02-09-2025 End: 02-09-2025 ambulatory IRA JENSEN Not Available Start: 02-09-2025 End: 02-09-2025 Bamboo flowsheet Ira ELMORE Work Phone: [facility] Start: 02-09-2025 End: 02-09-2025 Bamboo flowsheet Ira ELMORE Work Phone: [facility] Start: 02-07-2025 End: 02-07-2025 Bamboo flowsheet Ira Camila PA Work Phone: [facility] Start: 02-07-2025 End: 02-08-2025 Bamboo flowsheet Ira Camila RAMÍREZ Work Phone: [facility] Start: 02-07-2025 End: 02-08-2025 External Result Encounter Ira [place] PA Work Phone: [facility] Unsolicited Start: 02-07-2025 End: 02-07-2025 ambulatory IRA JENSEN Not Available Start: 02-07-2025 End: 02-07-2025 Office outpatient visit 15 minutes Ira ELMORE Work Phone: [facility] Comment on above: Vaginal discharge; Second trimester ([facility]); 15 weeks gestation of ([facility]); Nausea and vomiting in ([facility]) Start: 02-06-2025 End: 02-07-2025 Emergency department patient visit -Emergency Room Work Phone: Start: 01-19-2025 End: 01-19-2025 Bamboo flowsheet Rodrigo Guzman DO Work Phone: [facility] Start: 01-19-2025 End: 01-19-2025 Bamboo flowsheet Rodrigo Thomas DO Work Phone: [facility] Start: 01-19-2025 End: 01-19-2025 Clinisync Result Encounter Carmita Will VACUUM FILTER OPERATOR Work Phone: [facility] Unsolicited Start: 01-19-2025 End: 01-19-2025 Office outpatient visit 15 minutes Rodrigo Thomas DO Work Phone: [facility] Comment on above: GA: 12w3d Start: 01-19-2025 [...] End: 11-15-2024 Patient encounter procedure Fred ELMORE -[facility] Work Phone: Start: 11-09-2024 End: 11-09-2024 Patient [...] exam Start: 11-07-2024 End: 11-07-2024 ambulatory IRA CAMILA Not Available Start: 03-22-2024 End: 03-22-2024 ambulatory MARIA R DISLA Facility:[facility] Start: 02-02-2024 End: 02-02-2024 Departed Referred [facility] [place] Work Phone: Start: 02-02-2024 End: 02-02-2024 ambulatory NON STAFF [facility] Work Phone: Start: 02-02-2024 End: 02-02-2024 Patient encounter procedure [facility] Physician [facility] Work Phone: Start: 01-20-2024 End: 01-20-2024 ambulatory NON STAFF [facility] Work Phone: Start: 01-20-2024 End: 01-20-2024 Patient encounter procedure [facility] Physician [facility] Work Phone: Start: 11-13-2023 End: 11-13-2023 ambulatory NON STAFF [facility] Work Phone: Start: 11-13-2023 End: 11-13-2023 Patient encounter procedure [facility] Work Phone: Start: 09-16-2023 End: 09-16-2023 ambulatory [facility] Work Phone: Start: 09-16-2023 End: 09-16-2023 Patient encounter procedure [facility] Work Phone: Start: 06-30-2023 End: 06-30-2023 ambulatory MARZENA MARTINEZ Facility:[facility] Start: 04-06-2023 End: 04-06-2023 ambulatory [facility] Facility:[facility] Start: 03-12-2023 ambulatory [facility] Facility: [facility] Start: 03-12-2023 End: 03-12-2023 Preprocedural examination done Ultra 2 Work Phone: [facility] Start: 03-12-2023 End: 03-12-2023 Subsequent hospital visit by physician [facility] 2 Work Phone: [facility] Radiology Ultrasound Comment on above: Pre-op evaluation [Z 01.818] Start: 03-03-2023 End: 03-03-2023 ambulatory SHELLY PARSONS Facility:[facility] Start: 03-03-2023 End: 03-03-2023 Subsequent hospital visit by physician Shelly Parsons DO Work Phone: Ambulatory Surgery Comment on above: Class 3 severe obesi ty with serious comorbidity and body mass index (BMI) of 40.0 to 44.9 in adult, unspecified obesity type (HCC) [E66.01, Z68.41] Start: 02-25-2023 ambulatory Nurse Janis [facility] Work Phone: Gastroenterology Comment on above: EGD instructions Start: 02-25-2023 E-mail encounter fro m caregiver Nurse Janis [facility] Work Phone: [facility] Start: 02-11-2023 End: 02-12-2023 ambulatory [facility] Facility:[facility] Start: 02-11-2023 End: 02-11-2023 ambulatory [facility] Facility:[facility] Start: 02-11-2023 Encounter for other preprocedural examination SHELLY PARSONS [facility] Start: 02-11-2023 End: 02-11-2023 Patient encounter procedure Nurse Card [facility] Work Phone: Cardiology Comment on above: Pre-op evaluation; Class 3 severe obesity with serious comorbidity and body mass index (BMI) of 40.0 to 44.9 in adult, unspecified obesity type (HCC) Start: 02-11-2023 End: 02-11-2023 Preprocedural examination done Nurse Rej Work Phone: [facility] Start: 02-10-2023 Telephone encounter [facility] Comment on above: Smoking Cessation Start: 02-04-2023 End: 02-04-2023 ambulatory SASHA XIE [facility] Start: 02-04-2023 End: 02-04-[address] Work Phone: Nutrition Comment on above: Body mass index (BMI ) 40.0-44.9, adult (HCC) (Primary Dx); Dietary counseling and surveillance Start: 02-04-2023 End: 02-04-2023 Telemedicine consultation with patient Sasha Xie RD Work Phone: [facility] Start: 02-01-2023 Chart abstracting [facility] Work Phone: Neurology Start: 01-30-2023 ambulatory [facility] Facility: [facility] Start: 01-30-2023 Encounter for other preprocedural examination [facility] Start: 01-30-2023 End: 01-30-2023 ambulatory NORBERTO MALONE Facility:[facility] Start: 01-30-2023 End: 01-30-2023 Preprocedural examination done [facility] Work Phone: [facility] Start: 01-30-2023 End: 01-30-2023 Subsequent hospital visit by physician [facility] Work Phone: [facility] Radiology General Comment on above: Pre-op evaluation [Z 01.818] Start: 01-19-2023 End: 01-20-2023 ambulatory [facility] Facility:[facility] Start: 01-19-2023 End: 01-19-2023 Patient encounter procedure [facility] FORM [employer].PROSTHETICS TECHNICIAN Work Phone: General Surgery Comment on above: Pre-op evaluation (P rimary Dx); Class 3 severe obesity with serious comorbidity and body mass index (BMI) of 40.0 to 44.9 in adult, unspecified obesity type (HCC); Vapes nicotine containing substance; Marijuana smoker Start: 01-19-2023 End: 01-19-2023 Preprocedural examination done Allie Larson APRN.[facility] Work Phone: [facility] Work Phone: Start: 09-23-2022 End: 09-23-2022 ambulatory MARIA R NAIF Facility:[facility] Start: 09-20-2022 End: 09-20-2022 ambulatory MARIA R NAIF Facility:[facility] Start: 07-07-2022 End: 07-07-2022 Departed Referred [facility] [place] Work Phone: Start: 07-07-2022 End: 07-07-2022 ambulatory NON STAFF [facility] Work Phone: Start: 07-07-2022 Office outpatient vi sit 25 minutes Radhika Enrique [facility] Start: 07-04-2022 End: 07-04-2022 Emergency department patient visit [facility] Work Phone: Start: 06-17-2022 End: 06-17-2022 ambulatory Maria R Naif Other Conjecta Other Start: 06-17-2022 Telephone encounter Maria R Breaul t [facility] Start: 05-01-2022 End: 05-01-2022 ambulatory MARIA R NAIF Facility:[facility] Start: 03-24-2022 End: 03-24-2022 ambulatory Maria R Naif Other Conjecta Other Start: 03-24-2022 Telephone encounter Maria R Breaul t [facility] Start: 01-27-2022 End: 01-27-2022 ambulatory Radhika Enrique Other Conjecta Other Start: 01-27-2022 Office outpatient vi sit 15 minutes Radhika Iva [facility] Start: 01-14-2022 End: 01-14-2022 ambulatory MARIA R NAIF Facility:[facility] Start: 11-26-2021 End: 11-26-2021 ambulatory Maria R Naif Other Conjecta Other Start: 11-26-2021 Office outpatient vi sit 15 minutes Maria R Naif [facility] Start: 11-11-2021 End: 11-11-2021 ambulatory Maria R Naif Other Conjecta Other Start: 11-11-2021 Office outpatient vi sit 25 minutes Maria R Naif [facility] Start: 10-28-2021 End: 10-28-2021 ambulatory MARIA R NAIF Facility:[facility] Start: 10-14-2021 End: 10-14-2021 ambulatory Maria R Naif Other Conjecta Other Start: 10-14-2021 Office outpatient vi sit 15 minutes Maria R Naif [facility] Start: 08-18-2021 End: 08-18-2021 ambulatory Maria R Naif Other Conjecta Other Start: 08-18-2021 Telephone encounter Maria Remily Ledesmal t [facility] Start: 06-21-2021 End: 06-21-2021 ambulatory Radhika Iva Other Conjecta Other Start: 06-21-2021 Office outpatient vi sit 5 minutes Radhika Iva [facility] Start: 05-28-2021 End: 05-28-2021 ambulatory Maria R Naif Other Conjecta Other Start: 05-28-2021 Telephone encounter Maria R simmons [facility] Start: 04-10-2021 End: 04-10-2021 ambulatory Maria R Disla Other Conjecta Other Start: 04-10-2021 Telephone encounter Maria R simmons [facility] Start: 03-30-2021 End: 03-30-2021 ambulatory Maria R Disla Other Conjecta Other Start: 03-30-2021 Office outpatient vi sit 15 minutes Maria R Disla [facility] Start: 03-07-2021 Office outpatient vi sit 15 minutes Maria R Disla [facility] Start: 02-26-2021 Office outpatient vi sit 15 minutes Maria Remily Disla [facility] Procedures Date Procedure Procedure Detail Performing Clinician Start: 03-06-2025 Urnls dip stick/tablet rgnt non-auto w/o micrscp Rodrigo Thomas DO Work Phone: Start: 02-09-2025 Urnls dip stick/tablet rgnt non-auto w/o micrscp Ira ELMORE Work Phone: Start: 02-07-2025 RECURRENT VAGINITIS (HTRX) Ira ELMORE Work Phone: Start: 02-07-2025 Urnls dip stick/tablet rgnt non-auto w/o micrscp Ira ELMORE Work Phone: Start: 01-19-2025 BOX TEST Carmita Will NP Work Phone: Start: 01-19-2025 Urnls dip stick/tablet rgnt non-auto w/o micrscp Rodrigo Thomas DO Work Phone: Start: 12-19-2024 Chlamydia culture [...] abdominal real time w/image limited Allie Larson [place].PROSTHETICS TECHNICIAN Work Phone: Start: 03-03-2023 Level iv surg pathology gross&microscopic exam Shelly Parsons DO Work Phone: Start: 03-03-2023 Esophagogastroduodenoscopy transoral diagnostic Norberto Malone MD Work Phone: Start: 02-11-2023 Ecg routine ecg w/least 12 lds i&r only Allie Neo [employer].PROSTHETICS TECHNICIAN Work Phone: Start: 01-30-2023 Radiologic exam chest 2 views Allie Lewis lorie [employer].PROSTHETICS TECHNICIAN Work Phone: Start: 07-04-2022 Urine culture Plan of Treatment Date Care Activity Detail Author Start: 07-07-2032 Urine microalbumin profile [facility] Start: 03-06-2025 End: 04-06-2025 Alpha fetoprotein, maternal Alpha fetoprotein, maternal Lab Routine Second trimester ([facility]) Expected: 03/06/2025 (Approximate), Expires: 04/06/2025 [facility] Comment on above: Expected: 03/06/2025 (Approximate), Expires: 04/06/2025 Start: 03-06-2025 End: 06-06-2025 US for US OB 14+ weeks anatomy scan Imaging Routine Screening, , for anatomic survey ([facility]) Expected: 03/06/2025, Expires: 06/06/2025 [facility] Work Phone: Comment on above: Expected: 03/06/2025 , Expires: 06/06/2025 Start: 03-06-2025 End: 03-06-2025 Patient encounter procedure [facility] Comment on above: Arrived Start: 02-20-2025 End: 02-20-2025 Patient encounter procedure 02/20/2025 11:30 AM EDT Routine [facility] [address] [place] [phone] Carmita Will, LETITIA [address] [place] [phone] [facility] Start: 02-09-2025 End: 02-09-2025 Patient encounter procedure 02/09/2025 2:40 PM EDT Routine [facility] [address] [place] [phone] Ira Jensen PA [address] [place] [address] Arrived [facility] Comment on above: Arrived Start: 01-23-2025 Influenza vaccination [facility] Start: 01-19-2025 End: 01-19-2025 ambulatory 01/19/2025 8:50 AM EDT Initial [facility] [address] [place] [phone] Rodrigo Guzman DO [address] [place] [address] Arrived [facility] Comment on above: Arrived Start: 01-16-2025 End: 01-16-2025 Patient encounter procedure 01/16/2025 11:45 AM EDT Routine [facility] [address] [place] [phone] Wesley Browning DO [address] [place] [address] [facility] [place] [facility] Start: 12-19-2024 End: 12-19-2024 ambulatory 12/19/2024 9:15 AM EDT Initial [facility] [address] [place] [address] Wesley Browning DO [address] [place] [address] [facility] Start: 12-02-2024 End: 12-02-2025 Bacteria identified in Urine by Culture Urine culture Microbiology Routine Encounter for supervision of normal first in first trimester ([facility]) Expected: 12/02/2024, Expires: 12/02/2025 [facility] Comment on above: Expected: 12/02/2024 , Expires: 12/02/2025 Start: 12-02-2024 End: 12-02-2025 BEACON CARRIER SCREEN;14 GENES BEACON CARRIER SCREEN;14 GENES Lab Routine Screening for genetic disease carrier status Expected: 12/02/2024 (Approximate), Expires: 12/02/2025 [facility] Comment on above: Expected: 12/02/2024 (Approximate), Expires: 12/02/2025 Start: 12-02-2024 End: 12-02-2025 Blood type and Indirect antibody screen panel - Blood Type and screen Lab Routine Encounter for supervision of normal first in first trimester ([facility]) Expected: 12/02/2024, Expires: 12/02/2025 [facility] Comment on above: Expected: 12/02/2024 , Expires: 12/02/2025 Start: 12-02-2024 End: 12-02-2025 CBC W Auto Differential panel - Blood CBC and differential Lab Routine Encounter for supervision of normal first in first trimester ([facility]) Expected: 12/02/2024, Expires: 12/02/2025 [facility] Comment on above: Expected: 12/02/2024 , Expires: 12/02/2025 Start: 12-02-2024 End: 12-02-2025 DRUG SCREEN 17 W/CONF, UR DRUG SCREEN 17 W/CONF, UR Lab Routine Encounter for drug screening Expected: 12/02/2024, Expires: 12/02/2025 [facility] Comment on above: Expected: 12/02/2024 , Expires: 12/02/2025 Start: 12-02-2024 End: 12-02-2025 Hepatitis B virus surface Ag [Presence] in Serum or Plasma by Immunoassay Hepatitis B surface antigen Lab Routine Encounter for supervision of normal first in first trimester ([facility]) Expected: 12/02/2024, Expires: 12/02/2025 [facility] Comment on above: Expected: 12/02/2024 , Expires: 12/02/2025 Start: 12-02-2024 End: 12-02-2025 Hepatitis C virus Ab [Presence] in Serum or Plasma by Immunoassay Hepatitis C antibody Lab Routine Encounter for supervision of normal first in first trimester ([facility]) Expected: 12/02/2024, Expires: 12/02/2025 [facility] Comment on above: Expected: 12/02/2024 , Expires: 12/02/2025 Start: 12-02-2024 End: 12-02-2025 HIV-2 antigen assay HIV-2 antigen Lab Routine Encounter for supervision of normal first in first trimester ([facility]) Expected: 12/02/2024, Expires: 12/02/2025 [facility] Comment on above: Expected: 12/02/2024 , Expires: 12/02/2025 Start: 12-02-2024 End: 12-02-2025 [id number] PLUS Core+SCA [id number] PLUS Core+SCA Lab Routine Encounter for screening for chromosomal anomalies ([facility]) Expected: 12/02/2024 (Approximate), Expires: 12/02/2025 [facility] Comment on above: Expected: 12/02/2024 (Approximate), Expires: 12/02/2025 Start: 12-02-2024 End: 12-02-2025 Rpr (dx) w/refl titer and confirmatory testing Rpr (dx) w/refl titer and confirmatory testing Lab Routine Encounter for supervision of normal first in first trimester ([facility]) Expected: 12/02/2024, Expires: 12/02/2025 [facility] Comment on above: Expected: 12/02/2024 , Expires: 12/02/2025 Start: 12-02-2024 End: 12-02-2025 Rubella antibody, IgG Rubella antibody, IgG Lab Routine Encounter for supervision of normal first in first trimester ([facility]) Expected: 12/02/2024, Expires: 12/02/2025 [facility] Comment on above: Expected: 12/02/2024 , Expires: 12/02/2025 Start: 12-02-2024 End: 12-02-2025 Urinalysis complete panel - Urine Urinalysis with microscopic Lab Routine Encounter for supervision of normal first in first trimester ([facility]) Expected: 12/02/2024, Expires: 12/02/2025 [facility] Work Phone: Comment on above: Expected: 12/02/2024 , Expires: 12/02/2025 Start: 11-07-2024 End: 11-07-2024 Patient encounter procedure 11/07/2024 11:00 AM EDT Office Visit [facility] [address] [place] [phone] Ira Jensen PA [address] [place] [address] Arrived [facility] Comment on above: Arrived Start: 02-02-2024 [facility] Start: 01-24-2024 Covid-19 Vaccine ( season) Covid-19 Vaccine ( season) [facility] Start: 01-24-2024 Influenza vaccination Influenza Vacc ine (#1) [facility] Start: 01-23-2023 Influenza vaccination [facility] Start: 01-19-2023 End: 03-21-2023 25-hydroxyvitamin D3 [Mass/volume] in Serum or Plasma VITAMIN D 25 HYDROXY Lab Routine Pre-op evaluation Class 3 severe obesity with serious comorbidity and body mass index (BMI) of 40.0 to 44.9 in adult, unspecified obesity type (HCC) Expected: 01/19/2023, Expires: 03/21/2023 [facility] Work Phone: Comment on above: Expected: 01/19/2023 , Expires: 03/21/2023 Start: 01-19-2023 End: 03-21-2023 CBC W Auto Differential panel - Blood CBC + DIFF Lab Routine Pre-op evaluation Class 3 severe obesity with serious comorbidity and body mass index (BMI) of 40.0 to 44.9 in adult, unspecified obesity type (HCC) Expected: 01/19/2023, Expires: 03/21/2023 [facility] Work Phone: Comment on above: Expected: 01/19/2023 , Expires: 03/21/2023 Start: 01-19-2023 End: 03-21-2023 Cobalamin (Vitamin B12) [Mass/volume] in Serum or Plasma VITAMIN B12 BLOOD Lab Routine Pre-op evaluation Class 3 severe obesity with serious comorbidity and body mass index (BMI) of 40.0 to 44.9 in adult, unspecified obesity type (HCC) Expected: 01/19/2023, Expires: 03/21/2023 [facility] Work Phone: Comment on above: Expected: 01/19/2023 , Expires: 03/21/2023 Start: 01-19-2023 End: 03-21-2023 Comprehensive metabolic 2000 panel - Serum or Plasma COMP METABOLIC PANEL Lab Routine Pre-op evaluation Class 3 severe obesity with serious comorbidity and body mass index (BMI) of 40.0 to 44.9 in adult, unspecified obesity type (HCC) Expected: 01/19/2023, Expires: 03/21/2023 [facility] Work Phone: Comment on above: Expected: 01/19/2023 , Expires: 03/21/2023 Start: 01-19-2023 End: 03-21-2023 Ferritin [Mass/volume] in Serum or Plasma FERRITIN BLD Lab Routine Pre-op evaluation Class 3 severe obesity with serious comorbidity and body mass index (BMI) of 40.0 to 44.9 in adult, unspecified obesity type (HCC) Expected: 01/19/2023, Expires: 03/21/2023 [facility] Work Phone: Comment on above: Expected: 01/19/2023 , Expires: 03/21/2023 Start: 01-19-2023 End: 03-21-2023 Folate [Mass/volume] in Serum or Plasma FOLATE SERUM Lab Routine Pre-op evaluation Class 3 severe obesity with serious comorbidity and body mass index (BMI) of 40.0 to 44.9 in adult, unspecified obesity type (HCC) Expected: 01/19/2023, Expires: 03/21/2023 [facility] Work Phone: Comment on above: Expected: 01/19/2023 , Expires: 03/21/2023 Start: 01-19-2023 End: 03-21-2023 Hemoglobin A1c in Blood HGB A1C Lab Routine Pre-op evaluation Class 3 severe obesity with serious comorbidity and body mass index (BMI) of 40.0 to 44.9 in adult, unspecified obesity type (HCC) Expected: 01/19/2023, Expires: 03/21/2023 [facility] Work Phone: Comment on above: Expected: 01/19/2023 , Expires: 03/21/2023 Start: 01-19-2023 End: 03-21-2023 Iron and Iron binding capacity panel - Serum or Plasma IRON + TIBC Lab Routine Pre-op evaluation Class 3 severe obesity with serious comorbidity and body mass index (BMI) of 40.0 to 44.9 in adult, unspecified obesity type (HCC) Expected: 01/19/2023, Expires: 03/21/2023 [facility] Work Phone: Comment on above: Expected: 01/19/2023 , Expires: 03/21/2023 Start: 01-19-2023 End: 03-21-2023 Lipid 1996 panel - Serum or Plasma LIPID PANEL BASIC Lab Routine Pre-op evaluation Class 3 severe obesity with serious comorbidity and body mass index (BMI) of 40.0 to 44.9 in adult, unspecified obesity type (HCC) Expected: 01/19/2023, Expires: 03/21/2023 [facility] Work Phone: Comment on above: Expected: 01/19/2023 , Expires: 03/21/2023 Start: 01-19-2023 End: 03-21-2023 Natriuretic peptide.B prohormone N-Terminal [Mass/volume] in Serum or Plasma NT PRO BNP Lab Routine Pre-op evaluation Class 3 severe obesity with serious comorbidity and body mass index (BMI) of 40.0 to 44.9 in adult, unspecified obesity type (HCC) Expected: 01/19/2023, Expires: 03/21/2023 [facility] Work Phone: Comment on above: Expected: 01/19/2023 , Expires: 03/21/2023 Start: 01-19-2023 End: 03-21-2023 NICOTINE & METAB, UR NICOTINE & METAB, UR Lab Routine Pre-op evaluation Class 3 severe obesity with serious comorbidity and body mass index (BMI) of 40.0 to 44.9 in adult, unspecified obesity type (HCC) Expected: 01/19/2023, Expires: 03/21/2023 [facility] Work Phone: Comment on above: Expected: 01/19/2023 , Expires: 03/21/2023 Start: 01-19-2023 End: 03-21-2023 Thyrotropin [Units/volume] in Serum or Plasma TSH BLD Lab Routine Pre-op evaluation Class 3 severe obesity with serious comorbidity and body mass index (BMI) of 40.0 to 44.9 in adult, unspecified obesity type (HCC) Expected: 01/19/2023, Expires: 03/21/2023 [facility] Work Phone: Comment on above: Expected: 01/19/2023 , Expires: 03/21/2023 Start: 01-19-2023 End: 03-21-2023 TOX SCREEN ROUT UR TOX SCREEN ROUT UR Lab Routine Pre-op evaluation Class 3 severe obesity with serious comorbidity and body mass index (BMI) of 40.0 to 44.9 in adult, unspecified obesity type (HCC) Expected: 01/19/2023, Expires: 03/21/2023 [facility] Work Phone: Comment on above: Expected: 01/19/2023 , Expires: 03/21/2023 Start: 01-19-2023 End: 03-21-2023 VITAMIN B1 (THIAMINE), WHOLE BLOOD VITAMIN B1 (THIAMINE), WHOLE BLOOD Lab Routine Pre-op evaluation Class 3 severe obesity with serious comorbidity and body mass index (BMI) of 40.0 to 44.9 in adult, unspecified obesity type (HCC) Expected: 01/19/2023, Expires: 03/21/2023 [facility] Work Phone: Comment on above: Expected: 01/19/2023 , Expires: 03/21/2023 Start: 07-07-2022 Bacteria identified in Urine by Culture [facility] Start: 2022 PAP TESTING PAP TESTING [facility] Start: 2022 Screening for malign ant neoplasm of cervix Cervical Cancer Screening [facility] Start: 2019 ANNUAL PCP TEAM [employer]PRESENTATIVE ELLEN DISEASE VISIT ANNUAL PCP TEAM CHRONIC DISEASE VISIT [facility] Start: 2019 CHLAMYDIA SCREENING (18-24) CHLAMYDIA SCREENING (18-24) [facility] Start: 2019 GC (GONORRHEA) SCREE KATIA (18-24) GC (GONORRHEA) SCREENING (18-24) [facility] Start: 2019 HEPATITIS C SCREENING HEPATITIS C [facility] Start: 2019 Hepatitis C screening Hepatitis C [facility] Start: 2019 HIV SCREENING HIV SCREENING [facility] Start: 2019 HIV screening HIV Screening [facility] Start: 2019 Screening for Chlamy melvin trachomatis Chlamydia Screening (18-24) [facility] Start: 2019 SPIROMETRY SPIROMETRY [facility] Start: 2017 Meningococcal B Vacc ine: Consider Based On Risk (1 of 2 - Patient Seeks Protection) Meningococcal B Vaccine: Consider Based On Risk (1 of 2 - Patient Seeks Protection) [facility] Start: 2017 MENINGOCOCCAL B: Consider based on risk (1 of 2 - Patient Seeks Protection) MENINGOCOCCAL B: Consider based on risk (1 of 2 - Patient Seeks Protection) [facility] Start: 2015 PEDS TO ADULT TRANSI TION ANNUAL ASSESSMENT PEDS TO ADULT TRANSITION ANNUAL ASSESSMENT [facility] Start: 2013 PEDS TO ADULT TRANSI TION INITIAL DISCUSSION PEDS TO ADULT TRANSITION INITIAL DISCUSSION [facility] Start: 2007 PNEUMOCOCCAL (1 - PCV) PNEUMOCOCCAL (1 - PCV) [facility] Start: 2007 Pneumococcal vaccination Pneum ococcal Vaccine (1 - PCV) [facility] Start: 2001 COVID-19 VACCINE (#1) COVID-19 VACCI NE (#1) [facility] Atopobium vaginae DN A [Presence] in Vaginal fluid by HANNY with probe detection [facility] Bacterial vaginosis associated bacterium 2 DNA [Presence] in Vaginal fluid by HANNY with probe detection [facility] CHLAMYDIA TRACHOMATI S (GENITO/STI) CHLAMYDIA TRACHOMATIS (GENITO/STI) Lab Routine Vaginal discharge Ordered: 02/07/2025 [facility] Comment on above: Ordered: 02/07/2025 Cytology Cervical or vaginal smear or scraping study Pap Smear Pathology and Cytology Routine Well woman exam with routine gynecological exam Ordered: 11/07/2024 [facility] Work Phone: Comment on above: Ordered: 11/07/2024 End: 01-20-2024 ECG COMPLETE ECG COMPLETE ECG Routine Pre-op evaluation Class 3 severe obesity with serious comorbidity and body mass index (BMI) of 40.0 to 44.9 in adult, unspecified obesity type (HCC) 1 Occurrences starting 01/19/2023 until 01/20/2024 [facility] Work Phone: Comment on above: 1 Occurrences starti ng 01/19/2023 until 01/20/2024 ECG COMPLETE ECG COMPLETE ECG Routine Pre-op evaluation Class 3 severe obesity with serious comorbidity and body mass index (BMI) of 40.0 to 44.9 in adult, unspecified obesity type (HCC) 02/11/2023 8:29 AM EDT [facility] Work Phone: Hemoglobin A1c/Hemoglobin.total in Blood Hemoglobin A1c Lab Routine First trimester ([facility]) 12 weeks gestation of ([facility]) Ordered: 01/19/2025 [facility] Work Phone: Comment on above: Ordered: 01/19/2025 End: 01-19-2024 HOME SLEEP APNEA TEST (HSAT) HOME SLEEP APNEA TEST (HSAT) Procedures Routine Pre-op evaluation Class 3 severe obesity with serious comorbidity and body mass index (BMI) of 40.0 to 44.9 in adult, unspecified obesity type (HCC) 1 Occurrences starting 01/19/2023 until 01/19/2024 [facility] Work Phone: Comment on above: 1 Occurrences starti ng 01/19/2023 until 01/19/2024 IGP,rfx Apt HPV ASCU,16/18,45 IGP,rfx Apt HPV ASCU,16/18,45 Lab Routine 13 weeks gestation of ([facility]) Screening for malignant neoplasm of cervix Ordered: 12/19/2024 [facility] Work Phone: Comment on above: Ordered: 12/19/2024 Megasphaera sp type 1 DNA [Presence] in Vaginal fluid by HANNY with probe detection [facility] Neisseria gonorrhoea e DNA [Presence] in Unspecified specimen by HANNY with probe detection Neisseria gonorrhea DNA probe, direct Lab Routine Vaginal discharge Ordered: 02/07/2025 [facility] Comment on above: Ordered: 02/07/2025 Patient Education Sinusitis in adults [facility] Work Phone: Patient referral [facility] Work Phone: End: 02-18-2024 Radiologic exam chest 2 views XR CHEST 2V FRONTAL/LAT Radiology Routine Pre-op evaluation Class 3 severe obesity with serious comorbidity and body mass index (BMI) of 40.0 to 44.9 in adult, unspecified obesity type (HCC) 1 Occurrences starting 01/19/2023 until 02/18/2024 [facility] Work Phone: Comment on above: 1 Occurrences starti ng 01/19/2023 until 02/18/2024 SURESWAB(R) ADVANCED VAGINITIS PLUS, TMA SURESWAB(R) ADVANCED VAGINITIS PLUS, TMA Pathology and Cytology Routine Vaginal discharge Ordered: 02/07/2025 [facility] Work Phone: Comment on above: Ordered: 02/07/2025 End: 02-18-2024 US ABD RIGHT UPPER QUADRANT US ABD RIGHT UPPER QUADRANT Radiology Routine Pre-op evaluation Class 3 severe obesity with serious comorbidity and body mass index (BMI) of 40.0 to 44.9 in adult, unspecified obesity type (HCC) 1 Occurrences starting 01/19/2023 until 02/18/2024 [facility] Work Phone: Comment on above: 1 Occurrences starti ng 01/19/2023 until 02/18/2024 [facility] Immunizations Immunization Date Immunization Notes Care Provider Fa fe 07-07-2022 tetanus toxoid, redu himanshu diphtheria toxoid, and acellular pertussis vaccine, adsorbed Maria Remily Disla Other [facility] Work Phone: 04-07-2020 influenza, injectabl e, quadrivalent, contains preservative Allie Larson APRN.PROSTHETICS TECHNICIAN Work Phone: [facility] Work Phone: 04-07-2020 influenza virus vacc ine, unspecified formulation [facility] 03-14-2019 influenza, injectabl e, quadrivalent, contains preservative Maria R Disla Other [facility] Work Phone: 03-14-2019 influenza, injectabl e, quadrivalent, preservative [facility] 09-13-2018 meningococcal oligosaccharide (groups A, C, Y and W-135) diphtheria toxoid conjugate vaccine (MCV4O) Allie Larson APRN.PROSTHETICS TECHNICIAN Work Phone: [facility] Work Phone: 02-21-2014 influenza, seasonal, injectable Allie Larson FORM [employer]TER [employer].PROSTHETICS TECHNICIAN Work Phone: [facility] Work Phone: 07-07-2013 hepatitis A vaccine, pediatric/adolescent dosage, 2 dose schedule Allie Larson APRN.PROSTHETICS TECHNICIAN Work Phone: [facility] Work Phone: 07-07-2013 meningococcal polysaccharide (groups A, C, Y and W-135) diphtheria toxoid conjugate vaccine (MCV4P) Allie Larson APRN.PROSTHETICS TECHNICIAN Work Phone: [facility] Work Phone: 07-07-2013 tetanus toxoid, redu himanshu diphtheria toxoid, and acellular pertussis vaccine, adsorbed Allie Larson APRN.PROSTHETICS TECHNICIAN Work Phone: [facility] Work Phone: 03-16-2013 Human Papillomavirus 9-valent vaccine Allie Larson APRN.PROSTHETICS TECHNICIAN Work Phone: [facility] Work Phone: 03-16-2013 influenza, injectabl e, quadrivalent, preservative free Allie Larson APRN.[facility] Work Phone: [facility] Work Phone: 10-08-2011 Human Papillomavirus 9-valent vaccine Allie Larson APRN.[facility] Work Phone: [facility] Work Phone: 07-03-2011 Human Papillomavirus 9-valent vaccine Allie Larson APRN.[facility] Work Phone: [facility] Work Phone: 03-01-2008 hepatitis A vaccine, pediatric/adolescent dosage, 2 dose schedule Allie Larson APRN.[facility] Work Phone: [facility] Work Phone: 03-01-2008 varicella virus vaccine Cammie Larson APRN.[facility] Work Phone: [facility] Work Phone: 05-20-2005 influenza, seasonal, injectable Allie Larson APRN.PROSTHETICS TECHNICIAN Work Phone: [facility] Work Phone: 04-11-2005 influenza, seasonal, injectable Allie Larson APRN.PROSTHETICS TECHNICIAN Work Phone: [facility] Work Phone: 01-16-2005 diphtheria, tetanus toxoids and acellular pertussis vaccine, 5 pertussis antigens Allie Larson APRN.PROSTHETICS TECHNICIAN Work Phone: [facility] Work Phone: 01-16-2005 measles, mumps and rubella virus vaccine Allie Larson FORM [employer]TER [employer] Work Phone: [facility] Work Phone: 01-16-2005 poliovirus vaccine, inactivated Allie Larson FORM [employer]TER [employer] Work Phone: [facility] Work Phone: 06-27-2002 diphtheria, tetanus toxoids and acellular pertussis vaccine Allie Larson FORM [employer]TER [employer] Work Phone: [facility] Work Phone: 06-27-2002 haemophilus influenz ae type b vaccine, PRP-T conjugate Allie Larson FORM [employer]TER [employer] Work Phone: [facility] Work Phone: 02-02-2002 measles, mumps and rubella virus vaccine Allie Larson FORM [employer]TER [employer] Work Phone: [facility] Work Phone: 02-02-2002 varicella virus vaccine Cammie Larson FORM [employer]TER [employer].[facility] Work Phone: [facility] Work Phone: 2001 diphtheria, tetanus toxoids and acellular pertussis vaccine, unspecified formulation Allie Larson FORM [employer]TER [employer] Work Phone: [facility] Work Phone: 2001 haemophilus influenz ae type b conjugate and Hepatitis B vaccine Allie Larson FORM SETTER [employer].[facility] Work Phone: [facility] Work Phone: 2001 poliovirus vaccine, inactivated Allie Larson FORM SETTER [employer].[facility] Work Phone: [facility] Work Phone: 2001 diphtheria, tetanus toxoids and acellular pertussis vaccine, unspecified formulation Allie Larson FORM SETTER [employer].[facility] Work Phone: [facility] Work Phone: 2001 haemophilus influenz ae type b conjugate and Hepatitis B vaccine Allie Larson FORM SETTER [employer].[facility] Work Phone: [facility] Work Phone: 2001 pneumococcal conjuga te vaccine, 7 valent Allie Neo FORM [employer]TER [employer].PROSTHETICS TECHNICIAN Work Phone: [facility] Work Phone: 2001 poliovirus vaccine, inactivated Allie Neo FORM [employer]TER [employer].PROSTHETICS TECHNICIAN Work Phone: [facility] Work Phone: 2001 diphtheria, tetanus toxoids and acellular pertussis vaccine, unspecified formulation Alliemariana Larson FORM SETTER [employer].PROSTHETICS TECHNICIAN Work Phone: [facility] Work Phone: 2001 haemophilus influenz ae type b conjugate and Hepatitis B vaccine Alliemariana Larson FORM SETTER [employer].PROSTHETICS TECHNICIAN Work Phone: [facility] Work Phone: 2001 pneumococcal conjuga te vaccine, 7 valent Allie Neo FORM [employer]TER [employer] Work Phone: [facility] Work Phone: 2001 poliovirus vaccine, inactivated Allie Neo FORM SETTER [employer].PROSTHETICS TECHNICIAN Work Phone: [facility] Work Phone: Payers Date Payer Category Payer Self-pay [id number] 2022 Medicaid [id number] 2001 Unknown [id number] 2.16.84 [id number] 2001 Unknown [id number] 2.16.84 [id number] 2001 Unknown [id number] 2.16.84 [id number] 2001 Unknown [id number] 2.16.84 [id number] 2001 Unknown [id number] 2.16.84 [id number] 2001 Unknown [id number] 2.16.8 [id number] 2001 Unknown [id number] 2.16.8 [id number] 2001 Unknown [id number] 2.16.8 [id number] 2001 Unknown [id number] 2.16.8 [id number] 2001 Unknown [id number] 2.16.8 40.1.058517.3.579.2.9 2001 Unknown [id number] 2.16.8 40.1.032055.3.579.2.1259 2001 Unknown [id number] 2.16.8 40.1.185483.3.579.2.1259 2001 Unknown [id number] 2.16.8 40.1.023212.3.579.2.1259 2001 Unknown [id number] 2.16.8 40.1.104525.3.579.2.9 2001 Unknown [id number] 2.16.8 [id number] 1959 Medicaid [id number] 1959 Unknown [id number] 2.1 [id number] Medicaid [id number] Medicaid [id number] 2. [id number] Unknown [id number] 2.1 [id number] Unknown [id number] 2.16.8 [id number] Social History Date Type Detail Facility Unknown if ever smoked [facility] Start: 01-19-2023 End: 12-19-2024 Sex Assigned At [facility] Start: 07-04-2022 End: 01-20-2024 Tobacco smoking status NHIS Smoker (finding) [facility] Start: 2001 Sex Assigned At Female [facility] Start: 01-19-2023 End: 12-02-2024 Tobacco smoking status NHIS Never smoked tobacco [facility] Work Phone: Start: 01-19-2023 End: 12-02-2024 Tobacco use and exposure Smokeless tobacco non-user [facility] Work Phone: Start: 01-19-2023 End: 03-03-2023 Alcohol intake Current drinker of alcohol (finding) [facility] Start: 01-19-2023 End: 12-19-2024 History of Social function [facility] Start: 09-25-2022 National Score (1-100), lower number is lower risk 76 [facility] Start: 01-19-2023 Tobacco Comment vaping [facility] Start: 01-19-2023 Alcohol Comment once a month [facility] Start: 01-17-2023 Gender identity Identifies as female gender (finding) [facility] Start: 01-17-2023 Sexual orientation Bisexual (finding) [facility] Start: 03-03-2023 Tobacco Comment vaping- Quit 02/02/23 [facility] Tobacco smoking stat us NHIS Tobacco smoking consumption unknown [facility] Start: 2001 Sex assigned at Not on file [facility] Start: 12-02-2024 End: 02-09-2025 Alcoholic beverage intake Ex-drinker (finding) [facility] Start: 12-02-2024 Alcohol Comment caffeine intake: none [facility] Start: 10-02-2024 [facility] Sex Female (finding) [facility] Goals Date Patient Goal Desired Activity /State Personal health goal Clinical Notes 02-26-2021 to 03-06-2025 Anna He LPN - 03/06/2025 10:00 AM RAMÍREZ Mathews - 02/09/2025 2:40 PM RAMÍREZ Mathews - 02/07/2025 9:50 AM EDTSjohn Ying, PLASTICS WORKER - 01/19/2025 8:50 AM EDT Note Date & Type Note Facility 03-06-2025 History of Presen t illness Narrative Reason [...] nursing note reviewed. Exam conducted with a creative guru present. Vitals: Estimated body mass index is 52.66 kg/m as calculated from the following: Height as of 12/08/22: 5' 3 . Weight as of this encounter: 297 lb 4 oz. BP: 110/70 Patient's last menstrual period was 09/18/2024. ASSESSMENT & PLAN ICD-10-CM 1. Screening, , for anatomic survey ([facility]) Z36.89 US OB 14+ weeks anatomy scan 2. Second trimester ([facility]) Z34.92 Alpha fetoprotein, maternal Alpha fetoprotein, maternal 3. 19 weeks gestation of ([facility]) Z3A.19 POCT urinalysis dipstick manually resulted Patient [...] Rodrigo Guzman DO documented in this encounter [facility] 02-09-2025 History of Presen t illness Narrative [...] calculated from the following: Height as of 7/17/23: 5' 3 . Weight as of this encounter: 296 lb 12.8 oz. BP: 100/62 Patient's last menstrual period was 09/18/2024. ASSESSMENT & PLAN ICD-10-CM 1. 15 weeks gestation of ([facility]) Z3A.15 POCT urinalysis dipstick manually resulted 2. Second trimester ([facility]) Z34.92 POCT urinalysis dipstick manually resulted 3. [...] of: RAMÍREZ Castle documented in this encounter [facility] 02-07-2025 History of Presen t illness [...] gonorrhea DNA probe, direct 2. Second trimester ([facility]) Z34.92 3. 15 weeks gestation of ([facility]) Z3A.15 4. Nausea and vomiting in ([facility]) O21.9 magnesium oxide (Mag-Ox) 400 MG tablet [...] of: RAMÍREZ Castle documented in this encounter [facility] 01-19-2025 History of Presen t illness [...] nursing note reviewed. Exam conducted with a creative guru present. Vitals: Estimated body mass index is 52.97 kg/m as calculated from the following: Height as of 12/08/22: 5' 3 . Weight as of this encounter: 299 lb. BP: 122/76 Patient's last menstrual period was 09/18/2024. ASSESSMENT & PLAN ICD-10-CM 1. First trimester ([facility]) Z34.91 POCT urinalysis dipstick manually resulted 2. 12 weeks gestation of ([facility]) Z3A.12 New OB: Patient presents for transfer [...] or undercooked meat, and stay away from [facility]. Patient has been consulted regarding any further [...] Rodrigo Guzman DO documented in this encounter [facility] 12-19-2024 History of Presen t illness [...] supervision of normal first in first trimester ([facility]) Z34.01 2. 13 weeks gestation of ([facility]) Z3A.13 POCT URINALYSIS [address]/NG IGP,rfx Apt HPV ASCU,16/18,45 3. Screen for sexually transmitted diseases Z11.[address]/NG 4. Herpes simplex type 2 infection complicating , first trimester ([facility]) O98.511 B00.9 5. Severe obesity due to excess calories affecting in first trimester ([facility]) O99.211 E66.01 6. Screening for malignant neoplasm of cervix Z12.4 IGP,rfx Apt HPV ASCU,16/18,45 7. Nausea and vomiting during ([facility]) O21.9 She is here for routine visit. [...] in 4 weeks. documented in this encounter [facility] 12-02-2024 History of Presen t illness [...] of estimated date of delivery No Thalassemia (Citizen Of [place], Slovak, Mediterranean, or background): MCV less than 80 No Neural tube defect (Meningomyelocele, Spina bifida, or Anencephaly) No Down syndrome No Yusuf-Sachs (Ashkenazi Zoroastrianism, Cajun, Portuguese [place]) No Leoncio disease (Ashkenazi Zoroastrianism) No Familial dysautonomia (Ashkenazi Zoroastrianism) No Sickle cell disease or trait () No Hemophilia or other blood disorders No Muscular dystrophy No Cystic fibrosis No Valley's chorea No Other inherited genetic or chromosomal [...] 12/02/2024 12:05 PM documented in this encounter [facility] 11-09-2024 Evaluation note Diagnosis Onset Date Resolution Acute bacterial sinusitis noneactive November 09, 2024 10:32am Shingles acute November 15 10:05am [facility] Work Phone: 1(858) 692-100506-16-2025 History of Present illness Narrative* RAMÍREZ Castle [...] nursing note reviewed. Exam conducted with a creative guru present. Vitals: Estimated body mass index is [...] behalf of: RAMÍREZ Castle [facility] [id number] NoteHNO ID: [id number] Author: Netta Dillard, PhD Service: ? Author Type: Psychologist Type: Progress Notes Filed: 04/07/2023 7:48 AM Note Text: [facility] Bariat[facility] Behavioral Services Progress Note April 06, 2023 Patient was a no-show. Netta Dillard, Ph.D. [facility]ologistSelect [facility] History and physical note* Shelly Parsons DO [...] MAC Additional Comments: None Shelly Parsons DO [facility] Work Phone: [phone] History and physical note* Shelly Parsons DO [...] None Shelly Parsons DO [facility] Nurse Note* Meghann Kwan RN - 03/03/2023 [...] Meghann Escalante RN In Department: AMBULATORY SURGERY [facility]10-10-2023 Nurse Note* Meghann Kwan RN - 03/03/2023 [...] In Department: AMBULATORY SURGERY [facility] Nurse Note* Bia Price RN - 03/03/2023 9:54 AM EDT PRE OP LEARNING ASSESSMENT PROCEDURE/SURGERY: GI PROCEDURES: EGD READINESS TO LEARN COGNITIVE ABILITY: Alert and oriented MOTIVATION TO LEARN: Interested FAMILY SUPPORT: High - Very involved in pt care PATIENT LEARNS BEST BY: Written Instruction - Hand-outs Verbal Instruction FACTORS AFFECTING LEARNING: None PHYSICAL LIMITATIONS AFFECTING LEARNING: None Electronically Signed By: Bia Price, RN In Department: AMBULATORY SURGERY [facility]10-04-2023 Miscellaneous Notes* Telephone Encounter - Mary Alice Clark Ma - 02/25/2023 4:26 PM EDT Lm to confirm procedure for 03-03-23 documented [facility]23 NoteHNO ID: [id number] Author: Eugenia Chaudhary Service: ? Author Type: ? Type: Progress Notes Filed: 02/16/2023 1:25 PM Note Text: Sleep Study Check-In Documentation Date: February 16, 2023 Name: Saroj Membreno Comments: HST was returned in working order with all sleep questionnaires [facility]Select [facility] History of Present illness Narrative* Eugenia Chaudhary [...] Auth. provider HOME SLEEP APNEA TEST (HSAT) [[id number]] 01/19/23 Allie Larson APRN.PROSTHETICS TECHNICIAN Assoc. diagnoses: Pre-op evaluation [Z01.818], Class 3 [...] Torres - 02/10/2023 9:56 PM EDT Nomad# [id number] +GPS , Date shipped out: 02/11/23 SENT FEDEX DELIVERY - FEDEX RETURN Tracking mailout: [phone] Tracking return: [phone] * Katharina Blood - 02/01/2023 8:23 AM EDT February 01, 2023 An order has been received for Home Sleep Apnea Test (HSAT) from Allie Sales APRN.PROSTHETICS TECHNICIANharley. [facility] Staff. Visit prep complete. Comments :No The sleep study is scheduled for 02/21. Insurance: Payor: [employer] MEDICAID / Plan: [employer] MEDICAID [facility] / Product Type: Medicaid / Payer/Plan Subscr Sex Relation Sub. Ins. ID Effective Group Num 1. ANTHEM MEDICA* ANNMARIE MEMBRENOTEN 01 Female Self [id number] [birth year] [address] Katharina Blood documented in this encounterK[facility]09-[facility]23 NoteHNO ID: [id number] Author: Netta Dillard, PhD Service: ? Author Type: Psychologist Type: Progress Notes Filed: 02/18/2023 12:31 PM Note Text: [facility] Bariatric Behavioral Services Progress Note February 16, 2023 Patient cancelled today's appt. Netta Dillard, Ph.D. PsychologistSelect [facility]09-20-2023 NoteHNO ID: [id number] Author: Kelvin Gabriel III, PhD Service: ? Author Type: Physician Type: Progress Notes Filed: 02/16/2023 1:25 PM Note Text: February 11, 2023 Standing PSG Orders signed in the last 90 days None Future PSG Orders signed in the last 90 days Ordered Auth. provider HOME SLEEP APNEA TEST (HSAT) [[id number]] 01/19/23 Allie Larson APRN.PROSTHETICS TECHNICIAN Assoc. diagnoses: Pre-op evaluation [Z01.818], Class 3 [...] Provider cc'd of completion. documented in this encounterKettering [facility]09-19-2023 NoteHNO ID: [id number] Author: Temo Torres Service: ? Author Type: ? Type: Progress Notes Filed: 02/16/2023 1:25 PM Note Text: Nomad# [id number] +GPS , Date shipped out: 02/11/23 SENT FEDEX DELIVERY - FEDEX RETURN Tracking mailout: [phone] Tracking return: [phone]09[facility]-2023 Instructions * Patient Instructions* RojasSasha, LUZ - 02/10/2023 1:39 PM EDT NUTRITION CARE PLAN Nutrition Intervention 02/04/2023: Modify type and amount of food consumed at meals and snacks Before your next visit, read the Nutritional Guidelines section of Your Guide to Surgery. [email or web address]/departments/[email or web address]/patient-education/videos-gu ides#guides-tab 2. Drink 64 oz of fluids [...] Slim Fast Advanced Nutrition (20 grams protein) [place] Breakfast Essentials Light Start mixed with 1%/skim milk Atkins Protein Shake (15 gm protein version) Boost Glucose Control (16 grams protein) OWYN (20 gm protein and 180 calories version) 5. You need 79 grams of protein every day. Have a protein food with all meals and snacks. Get your protein from: lean meat, fish, eggs, low-fat dairy (cottage/ricotta cheese, azerbaijani/light yogurt, cheese), nuts, nut butters, beans/legumes. 6. [...] Follow up: 2-4 weeks documented in this encounterKettering Health [facility]09-19-2023 Miscellaneous Notes* Telephone Encounter - Allie Larson APRN.CNP - 02/10/2023 11:32 AM EDT Noted, thank you * Telephone Encounter - Mya Wing [facility] - 02/10/2023 10:11 AM EDT Smoking Cessation Navigation Outcome of contact: Spoke with Intervention Chosen By Patient: Other Comments: Patient quit last week. eHealth Fuels Engineer/Smoking Cessation Navigator: Cece Roque HannahAtrium Health [facility] documented in this encounterKettering Health [facility]09-13-2023 NoteHNO ID: [id number] Author: Sasha Xie RD Service: ? Author Type: Registered Dietitian Type: Progress Notes Filed: 02/10/2023 1:40 PM Note Text: Nutrition Therapy Initial Assessment I have communicated my name and active licensure. The patient?s identity and physical location were verified at the time of this visit. Either the patient or their legal promotions representative has been informed of the risks [...] Guidelines section of Your Guide to Surgery. https://[email or web address]/departments/bariatric/patient-education/vide os-guides#guides-tab 2. Drink 64 oz of fluids [...] Slim Fast Advanced Nutrition (20 grams protein) [place] Breakfast Essentials Light Start mixed with 1%/skim milk Atkins Protein Shake (15 gm protein version) Boost Glucose Control (16 grams protein) OWYN (20 gm protein and 180 calories version) 5. You need 79 grams of protein every day. Have a protein food with all meals and snacks. Get your protein from: lean meat, fish, eggs, low-fat dairy (cottage/ricotta cheese, azerbaijani/light yogurt, cheese), nuts, nut butters, beans/legumes. 6. [...] guidelines for weight loss surgery and has [employer] therefore is required to complete 0 months of Nutrition Intervention for clearance for surgery. Today is visit #1 (Rojas 02/04/2023). Patient meets the National Institutes of Health guidelines for weight loss surgery however, needs to demonstrate consistent effort in making dietary changes before being cleared for surgery. (more content not included)...[id number] History of Present illness Narrative* Sasha Xie, LUZ - 02/04/2023 10:26 AM EDT Nutrition Therapy Initial Assessment I have communicated my name and active licensure. The patient s identity and physical location wereverified at the time of this visit. Either the patient or their legal promotions representative has been informed of the risks [...] Guidelines section of Your Guide to Surgery. [email or web address]/departments/bariatric/patient-education/videos-gu ides#guides-tab 2. Drink 64 oz of fluids [...] Slim Fast Advanced Nutrition (20 grams protein) [place] Breakfast Essentials Light Start mixed with 1%/skim milk Atkins Protein Shake (15 gm protein version) Boost Glucose Control (16 grams protein) OWYN (20 gm protein and 180 calories version) 5. You need 79 grams of protein every day. Have a protein food with all meals and snacks. Get your protein from: lean meat, fish, eggs, low-fat dairy (cottage/ricotta cheese, azerbaijani/light yogurt, cheese), nuts, nut butters, beans/legumes. 6. [...] guidelines for weight loss surgery and has [employer] therefore is required to complete 0 months of Nutrition Intervention for clearance for surgery. Today is visit #1 ([place] 02/04/2023). Patient meets the National Institutes of [...] ,cheese, kaden, sour cream, taco sauce OR liberian chicken w/ mexical rice and corn/green beans Snack - 3x week - pretzels and nutella Beverages - water 10-12 c/day, 2-3x week lemonade/vitamin water, chocolate milk Alcohol - none/occ Vitamins/Supplements - none Restaurants, pick-up, take-out: 3-4x week - Chick [employer], [place], [place] Activity: Activities of Daily Living: Active 50% of the day. 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 Author Type: ? Type: Progress Notes Filed: 02/16/2023 1:25 PM Note Text: February 01, 2023 An order has been received for Home Sleep Apnea Test (HSAT) from Allie Sales APRN.harley NGUYỄN. [facility] Staff. Visit prep complete. Comments :No The sleep study is scheduled for 02/21. Insurance: Payor: [employer] MEDICAID / Plan: [facility] / Product Type: Medicaid / Payer/Plan Subscr Sex Relation Sub. Ins. ID Effective Group Num 1. RAZA HENNESSY* ANNMARIE MEMBRENOTEN 01 Female Self [id number] [birth year] [address] [facility]23 NoteHNO ID: [id number] Author: Cathie Ford RT(R) Service: Radiology Author Type: Supervisor Computer Operations Type: Progress Notes Filed: 01/30/2023 10:50 AM [...] BY: RT Enrrique(R) January 30, 2023 10:47 [id number] NoteHNO ID: [id number] Author: Norberto Malone MD Service: ? Author [...] goal weight prior to liquid fast: Per windows deployment technician Surgically Cleared with completion of the [...] Risks of nicotine befor (more content not included)...[facility]09-08-2023 History of Present illness Narrative* Cathie Ford [...] PERIPHERAL IV DATA: Not applicable SIGNED BY: MARY Osuna) January 30, 2023 10:47 AM documented in this encounterKettering Health [facility]08-28-2023 NoteHNO ID: [id number] Author: Allie Larson APRN.PROSTHETICS TECHNICIAN Service: ? Author Type: Nurse Practitioner Type: [...] Characterization of diet: Unstructured and skip meals. Minute Clerk of impaired eating habits:denies Eating Disorder no [...] Anxiety and depression Asthma No history of [place], COPD, +asthma, peptic ulcer disease, +GERD, dyslipidemia, [...] HEENT:: Supple, no adenopath (more content not included)...[facility]08-28-2023 Instructions* Patient Instructions* Allie Larson APRN.PROSTHETICS TECHNICIAN - 01/19/2023 9:16 AM EDT Darron Membreno , Thank you for completing your visit today and we welcome you to the surgical program. We are sure that you will still have some additional questions and encourage you to reach out to your care provider via Goozzyt OR your Patient Navigator. Patient Navigators are assigned alphabetically by patient last name. The contact information for each Navigator is listed below. Last names A-E= KimberlyKely Last names F-L = Ricardo Last names [...] free to ask for a hard copy. [email or web address]/-/[email or web address]/[email or web address]/[email or web address]/[email or web address] Once you complete all of the requirements (testing, consultations, diet, etc) from each provider, please call [phone] and select option #5 to initiate insurance approval. Also, if you have any questions along the way, we encourage you to join our weekly Navigation webinar every Thursday from 12:00 pm - 1:00 pm. This webinar will give you an opportunity to chat with your patient navigator and learn about your specific program requirements. The link for this webinar isbelow: [email or web address] Please note scheduling information It is important to keep track of your scheduled appointments to ensure successful completion of oursurgical program. Any missed appointments can further delay your pre-surgical work-up. [facility] does offer an opt-in option for getting text message appointment reminders. Please follow the link below if you would like to opt into this service. [email or web address]#[email or web address] [email or web address] As part of your surgical work up, [...] these tests. You may call your local [facility] to get an appointment. - Lab work- No appointment is needed for this, you may complete at any [facility].These are usually fasting labs, please be sure to fast (only water permitted) for 10-12 hours priorto the test. -Sleep Study- Please call [phone] or [phone] to get this appointment set up. -Sleep Medicine Consult- (Only needed if sleep study confirms sleep apnea) Please call [phone] [phone] to schedule an appointment. URINE TESTING AFTER [...] at least 1 month, go to any [facility] lab and submityour first nicotine screen. ?The [...] Any testing that is completed outside of [facility] will need faxed to [phone]. We look forward to working with you on this journey, Allie Larson APRN.GOPI documented in this encounterKettering Health [facility] Center08-28-2023 History of Present illness Narrative* Allie Larson [...] Characterization of diet: Unstructured and skip meals. Minute Clerk of impaired eating habits:denies Eating Disorder no [...] Anxiety and depression Asthma No history of [place], COPD, +asthma, peptic ulcer disease, +GERD, dyslipidemia, [...] at least 1 month, go to any [facility] lab and submityour first nicotine screen. ?The [...] and provide medicine clearance via letter in psychiatric. I spent a total of 50 minutes on the date of the service which included preparing to see the patient, yrud-ft-cotc patient care, completing clinical documentation, obtaining and/or reviewing separately obtained history, counseling and educating the patient/family/caregiver, and ordering medications, tests, or procedures. Allie Larson, MSN, FORM SETTER STEEL PAN FORMS, VACUUM FILTER OPERATOR-C [facility] [place] [address], [address] [place] [address] documented in this encounterKettering Health [facility]02-13-2023 Evaluation note* Encounter Date Diagnosis Assessment Notes [...] concerns Jun, Urinary frequency (ICD-10 - R35.0) [facility] Other 01-24-2023 Evaluation note* Encounter Date Diagnosis Assessment Notes Treatment Notes Treatment Clinical Notes May, Generalized anxiety disorder (ICD-10 - F41.1) [facility] Other 10-31-2022 Evaluation note* Encounter Date Diagnosis Assessment Notes Treatment Notes Treatment Clinical Notes Feb, Muscle pain (ICD-10 - M79.10) Feb, PILO (generalized anxiety disorder) (ICD-10 - F41.1) [facility] Other 09-05-2022 Evaluation note* Encounter Date Diagnosis Assessment Notes Treatment Notes Treatment Clinical Notes Jan, Herpes zoster without complication (ICD-10 - B02.9) Shingles home care material was printed Drink plenty fluids, get plenty of rest. Take the Valtrex as prescribed until gone. Follow-up with your family physician if no improvement in 2 to 3 days. [facility] Other 07-05-2022 Evaluation note* Encounter Date Diagnosis [...] to be seen. Also always know the [facility] Emergency Number is 24 hours a day available, even on holidays there is someone you can reach out to. Also we will check other labs yearly to screen for other health issues. Please remember we are a team and your opinion is very important in all of your healthcare decisions Nov, Insomnia, unspecified type (ICD-10 - G47.00) Increased dose as discussed. [facility] Other 06-20-2022 Evaluation note* Encounter Date Diagnosis Assessment Notes Treatment Notes Treatment Clinical Notes Oct, Generalized anxiety disorder (ICD-10 - F41.1) Increased medication as discussed. Oct, Herpes zoster without complication (ICD-10 - B02.9) Take medicatio as directed. Tylenol or motrin for pain [facility] Other 05-23-2022 Evaluation note* Encounter Date Diagnosis [...] to be seen. Also always know the [facility] Emergency Number is 24 hours a [...] medication can help with sleep and anxiety [facility] Other 03-27-2022 Evaluation note* Encounter Date Diagnosis Assessment Notes Treatment Notes Treatment Clinical Notes Jul, Muscle pain (ICD-10 - M79.10) [facility] Other 01-28-2022 Evaluation note* Encounter Date Diagnosis [...] Patient care instructions given in writting by [facility] document. [facility] Other 2022 Evaluation note* Encounter Date Diagnosis Assessment Notes Treatment Notes Treatment Clinical Notes May, PILO (generalized anxiety disorder) (ICD-10 - F41.1) May, Generalized anxiety disorder (ICD-10 - F41.1) May, Muscle pain (ICD-10 - M79.10) [facility] Other 11-06-2021 Evaluation note* Encounter Date Diagnosis [...] Patient care instructions given in writting by [facility] document. [facility] Other 10-14-2021 Evaluation note* Encounter Date Diagnosis Assessment Notes Treatment Notes Treatment Clinical Notes Feb, Generalized anxiety disorder (ICD-10 - F41.1) resent script 14 Oct, 2021 Puncture wound without foreign body of lip, initial encounter (ICD-10 - S01.531A) take medication as directed. Recommend taking out piercing and possibly using different type made of different metal [facility] Other 10-05-2021 Evaluation note* Encounter Date Diagnosis [...] to be seen. Also always know the [facility] Emergency Number is 24 hours a day available, even on holidays there is someone you can reach out to. Also we will check other labs yearly to screen for other health issues. Please remember we are a team and your opinion is very important in all of your healthcare decisions [facility] Other Evaluation noteNort [employer] Other evaluation noteNo assessment information available [facility] Work Phone: evaluation note* Diagnosis Pre-op evaluation- Primary Preoperative examination, unspecified Class 3 severe obesity with serious comorbidity and body mass index (BMI) of 40.0 to 44.9 in adult, unspecified obesity type (HCC) Vapes nicotine containing substance Marijuana smoker Cannabis abuse, unspecified documented in this encounter [facility] [place] [facility]* Diagnosis Body mass index (BMI) 40.0-44.9, adult (HCC)- Primary Dietary counseling and surveillance Dietary surveillance and counseling documented in this encounter [facility] note* Diagnosis Pre-op evaluation Preoperative examination, unspecified Class 3 severe obesity with serious comorbidity and body mass index (BMI) of 40.0 to 44.9 in adult, unspecified obesity type (HCC) documented in this encounter [facility]* Diagnosis Pre-op evaluation Preoperative examination, unspecified Class 3 severe obesity with serious comorbidity and body mass index (BMI) of 40.0 to 44.9 in adult, unspecified obesity type (HCC) documented in this encounter [facility] note* Diagnosis Pre-op evaluation Preoperative examination, unspecified Class 3 severe obesity with serious comorbidity and body mass index (BMI) of 40.0 to 44.9 in adult, unspecified obesity type (HCC) documented in this encounter [facility] note* Diagnosis Onset Date Resolution Status Right otitis media noneactiv e [facility] Work Phone: Evaluation note* Diagnosis Onset Date Resolution Status Right otitis media noneactiv e Right ankle sprain acute [facility] Work Phone: Evaluation note* Diagnosis Onset Date Resolution Status Right ankle sprain acute [facility] Work Phone: evaluation note* Diagnosis Onset Date Resolution Status Right ankle sprain acute Acute pharyngitis [facility] Work Phone: Evaluation note* Diagnosis Onset Date Resolution Status Right ankle sprain acute Acute pharyngitis acute Vaginal discharge [facility] Work Phone: Evaluation note* Diagnosis Class 3 severe obesity with serious comorbidity and body mass index (BMI) of 40.0 to 44.9 in adult, unspecified obesity type (HCC) documented in this encounter [facility] note* Diagnosis Well woman exam with routine gynecological exam Routine gynecological examination [facility] Diagnosis [facility]counter for supervision of normal first in first trimester ([facility]) Encounter for drug screening Encounter for screening for chromosomal anomalies ([facility]) Screening for genetic disease carrier status [facility] Diagnosis Encounter for supervision of normal first in first trimester ([facility] Primary 13 weeks gestation of ([facility]) Screen for sexually transmitted diseases Screening examination for venereal disease Herpes simplex type 2 infection complicating , first trimester ([facility]) Severe obesity due to excess calories affecting in first trimester ([facility]) Screening for malignant neoplasm of cervix Screening for malignant neoplasm of the cervix Nausea and vomiting during ([facility]) [facility] Diagnosis First trimester ([facility]) state, incidental 12 weeks gestation of ([facility]) [facility]* Diagnosis Vaginal discharge Leukorrhea, not specified as infective Second trimester ([facility]) state, incidental 15 weeks gestation of ([facility]) Nausea and vomiting in ([facility]) Unspecified vomiting of , unspecified as to episode of care [facility]* Diagnosis 15 weeks gestation of ([facility]) Second trimester ([facility]) state, incidental Blood pressure check Screening for hypertension Nonintractable headache, unspecified chronicity pattern, unspecified headache type Nausea Nausea alone [facility]* Diagnosis Screening, , for anatomic survey ([facility]) Encounter for anatomic survey Second trimester ([facility]) state, incidental 19 weeks gestation of ([facility]) documented [facility] this encounter [facility] Narrative - Reported* Type Description Date Medical History ADHD Medical History syncope Medical History anxiety Medical History lupus Medical History back pain Medical History chronic depression Medical History PTSD Surgical History wisdom teeth Hospitalization History No Hospitalization histo ry information [facility] [employer] Up Other History general Narrative - Reported* Type Description Date Medical History ADHD Medical History syncope Medical History anxiety Medical History lupus Medical History back pain Medical History chronic depression Medical History PTSD Surgical History wisdom teeth Hospitalization History No know Hospitalization history [facility] Other History general Narrative - ReportedNort [employer] Other Reason for referral (narrative)* Diagnostic Procedure [...] AIRFLOW HRT RATE&O2 SAT EFFORT Allie Mcgovern, FORM SETTER STEEL PAN FORMS.PROSTHETICS TECHNICIAN [address] [place] [address] [facility] [place] [address] [place] [address] Referral ID Status Reason Start Date Expiration Date Visits Requested Visits Authorized [id number] Pending Review Auto-Generat ed Referral 01/19/2023 01/19/2024 [...] REAL TIME W/IMAGE LIMITED Allie Larson APRN.CNP [id number] [facility] [place] [address] Referral ID Status Reason Start Date Expiration Date Visits Requested Visits Authorized [id number] Pending Review Auto-Generat ed Referral 01/19/2023 02/18/2024 [...] ECG W/LEAST 12 LDS W/I&R Allie Larson APRN.PROSTHETICS TECHNICIAN [address] [place] [address] [facility] [place] [address] [place], [place] [id number] Referral ID Status Reason Start Date Expiration Date Visits Requested Visits Authorized [id number] Pending Review Auto-Generat ed Referral 01/19/2023 01/19/2024 1 1 [facility] for referral (narrative)* Diagnostic Procedure Only (Routine) - Closed Specialty Diagnoses / Procedures Referred By Contac t Referred To Contact US IMAGING Diagnoses Pre-op evaluation Class 3 severe obesity with serious comorbidity and body mass index (BMI) of 40.0 to 44.9 in adult, unspecified obesity type (HCC) Procedures US ABD RIGHT UPPER QUADRANT US ABDOMINAL REAL TIME W/IMAGE LIMITED Allie Larson APRN.CNP [id number] [id number] [id number] Referral ID Status Reason Start Date Expiration Date V isits Requested Visits Authorized [id number] Closed Auto-Generate d Referral 01/19/2023 02/18/2024 1 1 [facility] for referral (narrative)* Outpatient Procedure (Routine) - Closed Specialty Diagnoses / Procedures Referred By Contac t Referred To Contact [facility] Diagnoses Class 3 severe obesity with serious comorbidity and body mass index (BMI) of 40.0 to 44.9 in adult, unspecified obesity type (HCC) Procedures EGD DIAGNOSTIC ESOPHAGOGASTRODUODENOSC OPY TRANS[place] [address] [place] [address] [facility] [address] [place] [address] Referral ID Status Reason Start Date Expiration Date V isits Requested Visits Authorized [id number] Closed Auto-Generate d Referral 01/30/2023 01/30/2024 1 1 T [facility] for referral (narrative)No reason for referral [facility]: [facility] Narrative* Diagnostic Procedure Only (Routine) - Closed Specialty Diagnoses / Procedures Referred By Contac t Referred To Contact US IMAGING Diagnoses Pre-op evaluation Class 3 severe obesity with serious comorbidity and body mass index (BMI) of 40.0 to 44.9 in adult, unspecified obesity type (HCC) Procedures US ABD RIGHT UPPER QUADRANT US ABDOMINAL REAL TIME W/IMAGE LIMITED Allie Larson APRN.CNP [address] [id number] [facility] [id number] Referral ID Status Reason Start Date Expiration Date V isits Requested Visits Authorized [id number] Closed Auto-Generate d Referral 01/19/2023 02/18/2024 1 [facility] Outpatient Procedure (Routine) - Closed Specialty Diagnoses / Procedures Referred By Contac t Referred To Contact [facility] Diagnoses Class 3 severe obesity with serious comorbidity and body mass index (BMI) of 40.0 to 44.9 in adult, unspecified obesity type (HCC) Procedures EGD DIAGNOSTIC ESOPHAGOGASTRODUODENOSC OPY TRANS[place] [address] [place] [address] [facility] [address] [place] [address] Referral ID Status Reason Start Date Expiration Date V isits Requested Visits Authorized [id number] Closed Auto-Generate d Referral 01/30/2023 01/30/2024 1 1 [facility] Chief Complaint and Reason for [...] Up Specialty Diagnoses / Procedures Referred By Contmo t Referred To Contact [facility] Diagnoses Pre-op evaluation Class 3 severe obesity with serious comorbidity and body mass index (BMI) of 40.0 to 44.9 in adult, unspecified obesity type (HCC) Procedures ECG COMPLETE ECG ROUTINE ECG W/LEAST 12 LDS W/I&R Allie Larson, FORM SETTER [employer].PROSTHETICS TECHNICIAN [address] [place] [address] [facility] [address] [place] [address] Referral ID Status Reason Start Date Expiration Date V isits Requested Visits Authorized [id number] Closed Auto-Generate d Referral 01/19/2023 01/19/2024 1 [...] Dates NON STAFF Primary Care Provider Active Radhika Enrique , VACUUM FILTER OPERATOR-C Attending Provider Active Team Status: Inactive Member Role Status Dates NON STAFF Primary Care Provider Active Michelle Arthur , CASHIER CREDIT- Emergency Provider Active Cryptologic Technician Technical Relationship Specialty Start Date End Date NaifMaria RGOPI [address] [place] [address] Referring Family Medicine 01/07/23 Cryptologic Technician Technical Relationship Specialty Start Date End Date NaifMaria RGOPI [address] [place] [address] Referring Family Medicine 01/07/23 Cryptologic Technician Technical Relationship Specialty Start Date End Date NaifMaria RGOPI [address] [place] [address] Referring Family [facility] 01/07/23 Cryptologic Technician Technical Relationship Specialty Start Date End Date Maria R Disla CNP [address] [place] [address] Referring Family [facility] 01/07/23 Cryptologic Technician Technical Relationship Specialty Start Date End Date NaifMaria RGOPI [address] [place] [address] Referring Family [facility] 01/07/23 Cryptologic Technician Technical Relationship Specialty Start Date End Date Maria R Disla CNP [address] [place] [address] Referring Family Medicine 01/07/23 Cryptologic Technician Technical Relationship Specialty Start Date End Date Maria R Disla CNP [address] [place] [address] Referring Family Medicine 01/07/23 Team Status: Inactive Member Role Status Dates NON STAFF Primary Care Provider Active Start: November 13, 2023 End: November 13, 2023 Manjula Nevarez , [place] Attending Provider Active S tart: November 13, 2023 End: November 13, 2023 Team Status: Active Member Role Status Dates NON STAFF Primary Care Provider Active Start: November 13, 2023 Manjula Nevarez APRN Attending Provider Active S tart: November 13, 2023 Team Status: Inactive Member Role Status Dates NON STAFF Primary Care Provider Active Start: November 13, 2023 End: November 13, 2023 Manjula LAW , FORM SETTER [employer] Attending Provider Active Start: November 13, 2023 End: November 13, 2023 Team Status: Inactive Member Role Status Dates NON STAFF Primary Care Provider Active Start: January 20, 2024 End: January 20, 2024 Manjula LAW , [place] Attending Provider Active Start: January 20, 2024 [...] February 02, 2024 End: February 02, 2024 Cryptologic Technician Technical Relationship Specialty Start Date End Date Kromer, Karly PCP - [facility] [place] [employer] 11/23/23 Cryptologic Technician Technical Relationship Specialty Start Date End Date Kromer, Karly PCP - [facility] [place] [employer] 11/23/23 Cryptologic Technician Technical Relationship Specialty Start Date End Date Kromer, Karly PCP - [facility] [place] [employer] 11/23/23 Cryptologic Technician Technical Relationship Specialty Start Date End Date Kromer, Karly PCP - [facility] [place] [employer] 11/23/23 Cryptologic Technician Technical Relationship Specialty Start Date End Date Kromer, Karly PCP - [facility] [place] [employer] 11/23/23 Cryptologic Technician Technical Relationship Specialty Start Date End Date Kromer, Karly PCP - [facility] [place] [employer] 11/23/23 Cryptologic Technician Technical Relationship Specialty Start Date End Date Kromer, Karly PCP - [facility] [place] [facility] 11/23/23 Cryptologic Technician Technical Relationship Specialty Start Date End Date Kromer, Karly PCP - [facility] [place] [facility] 11/23/23 Team Status: Inactive Member Role Status Dates NON STAFF Primary Care Provider Active Start: November 09, 2024 End: November 09, 2024 Rajwinder Bang , [place] Attending Provider Active S tart: November 09, [...] February 06, 2025 End: February 07, 2025 Cryptologic Technician Technical Relationship Specialty Start Date End Date Kromer, Karly PCP - [facility] [place] [facility] 11/23/23 Cryptologic Technician Technical Relationship Specialty Start Date End Date Kromer, Karly PCP - [facility] [place] [facility] 11/23/23 Cryptologic Technician Technical Relationship Specialty Start Date End Date Kromer, Karly PCP - [facility] [place] [facility] 11/23/23 Cryptologic Technician Technical Relationship Specialty Start Date End Date Kromer, Karly PCP - [facility] 11/23/23 Goals (unrecognized section and content) Goals may be documented in a n alternate section INFORMATION SOURCE (unrecogn ized section and content) DATE CREATED AUTHOR 09/27/2022 [facility] DATE CREATED AUTHOR AUTHOR'S ORGANIZ ATION 02/11/2023 [facility] DATE CREATED AUTHOR AUTHOR'S ORGANIZ ATION 03/13/2023 [facility] DATE CREATED AUTHOR AUTHOR'S ORGANIZ ATION 04/07/2023 [facility] DATE CREATED AUTHOR AUTHOR'S ORGANIZ ATION 03/25/2024 [facility] DATE CREATED AUTHOR AUTHOR'S ORGANIZ ATION 03/26/2024 [facility] DATE CREATED AUTHOR AUTHOR'S ORGANIZ ATION 03/28/2024 [facility] DATE CREATED AUTHOR AUTHOR'S ORGANIZ ATION 02/17/2025 [facility] DATE CREATED AUTHOR AUTHOR'S ORGANIZ ATION 03/07/2025 [facility] EPIC Source Comments (unrecognize d section and content) In the event this informatio n is protected by the Federal Confidentiality of Alcohol and Drug Abuse Patient Records regulations: The Federal rules restrict any use of the information to criminally investigate or prosecute any alcohol or drug abuse patient.[facility] the event this information is protected by the Federal Confidentiality of Alcohol and Drug Abuse Patient Records regulations: The Federal rules restrict any use of the information to criminally investigate or prosecute any alcohol or drug abuse patient.[facility] the event this information is protected by the Federal Confidentiality of Alcohol and Drug Abuse Patient Records regulations: The Federal rules restrict any use of the information to criminally investigate or prosecute any alcohol or drug abuse patient.[facility] the event this information is protected by the Federal Confidentiality of Alcohol and Drug Abuse Patient Records regulations: The Federal rules restrict any use of the information to criminally investigate or prosecute any alcohol or drug abuse patient.[facility] the event this information is protected by the Federal Confidentiality of Alcohol and Drug Abuse Patient Records regulations: The Federal rules restrict any use of the information to criminally investigate or prosecute any alcohol or drug abuse patient.[facility] the event this information is protected by the Federal Confidentiality of Alcohol and Drug Abuse Patient Records regulations: The Federal rules restrict any use of the information to criminally investigate or prosecute any alcohol or drug abuse patient.[facility] the event this information is protected by the Federal Confidentiality of Alcohol and Drug Abuse Patient Records regulations: The Federal rules restrict any use of the information to criminally investigate or prosecute any alcohol or drug abuse patient.[facility] the event this information is protected by the Federal Confidentiality of Alcohol and Drug Abuse Patient Records regulations: The Federal rules restrict any use of the information to criminally investigate or prosecute any alcohol or drug abuse patient.[facility] the event this information is protected by the Federal Confidentiality of Alcohol and Drug Abuse Patient Records regulations: The Federal rules restrict any use of the information to criminally investigate or prosecute any alcohol or drug abuse patient.[facility] FOR RECORDS PERTAINING TO PATIENTS [...] BE BASED ON THE PRIMARY CLINICAL RECORDS. [facility]. provides no warranty or guarantee of the accuracy or completeness of information in this document.
== END 2025-03-13 12:21 | disposition home or self-care (01) ==
LOC: LAB 12:22
PROVIDERS: Visit Provider Obstetrics & Gynecology
DX: Z34.92 Encounter for supervision of normal pregnancy, unspecified, second trimester (principal)
CPT/HCPCS: 36415; 82105

== ENCOUNTER 2025-03-28 22:10 | Observation (INO) | payer MEDICAID, SELFPAY ==
--- OUTSIDE RECORDS SUMMARY | 2025-03-06 09:00 | XMS_ITS | Encounter Summary ---
Author Organization [facility] Address [address] [place] [address] Care Team Providers Care Step Down Specialist Name Role Phone Karly Baca Unavailable Unavailable Reason for Visit * ReasonCommentsRoutine Visit Encounter Details DateTypeDepartmentCare Team (Latest Contact Info)Jtgqgrvnrki74/13/2025 10:00 AM EDTRoutine [facility] [address] [place] [phone] Rodrigo Guzman DO [address] [place] [address] Screening, , for anatomic survey ([facility]); Second trimester ([facility]); 19 weeks gestation of ([facility]) Social History Tobacco UseTypesPacks/DayYears UsedDateSmoking Tobacco: NeverSmokeless Tobacco: NeverAlcohol UseStandard Drinks/WeekCommentsNot Currently0 (1 standard drink = 0.6 oz pure alcohol)caffeine intake: nonePHQ-2AnswerDate RecordedPatient Health Questionnaire-2 Lepyp47405/28/2024Estimated Date of DeliveryCommentsYes 6Based on UltrasoundSex and Gender InformationValueDate RecordedSex Assigned at BirthNot on fileLegal DlqBtmxok80/04/2023 12:17 PM EDTGender IdentityNot on fileSexual OrientationNot on filedocumented as of this encounter Last Filed Vital Signs Vital SignReadingTime TakenCommentsBlood Kzqeznjs577/7003/06/2025 10:04 AM EDT Pulse--Temperature--Respiratory Rate--Oxygen Saturation--Inhaled Oxygen Concentration--Hleius937 kg (297 lb 4 oz)03/06/2025 10:04 AM EDTHeight--Body Mass Index52.66012/08/2022 2:02 PM EDTdocumented in this encounter Functional Status * Over the past 2 weeks, how often have you been bothered by any of the following problems?QuestionAnswerDate of AssessmentAuthorLittle interest or pleasure in doing thingsNot at all03/07/2025 1:43 PM Ira Marquez LPN Feeling down, depressed, or hopelessNot at all03/07/2025 1:43 PM Ira Marquez LPNPatient Health Questionnaire-2 Pouve822 1:43 PM Ira Marquez LPN documented as of this encounter Progress Notes * Anna He LPN - 03/06/2025 10:00 AM EDT Reason for Appointment: Patient ID: [...] 28-0.8 MG tablet 1 tablet, Oral, Daily promethazine (PHENERGAN) 25 mg, Oral, Every 6 hours PRN, Take 1 tablet by mouth every 6 hours as needed for nausea. ALLERGIES No Known Allergies PROBLEMS Active Ambulatory [...] nursing note reviewed. Exam conducted with a flight radio officer present. Vitals: Estimated body mass index is 52.66 kg/m?? as calculated from the following: Height as of 12/08/22: 5' 3 . Weight as of this encounter: 297 lb 4 oz. BP: 110/70 Patient's last menstrual period was 09/18/2024. ASSESSMENT & PLAN ICD-10-CM 1. Screening, , for anatomic survey ([facility]) Z36.89 US OB 14+ weeks anatomy scan 2. Second trimester ([facility]) Z34.92 Alpha fetoprotein, maternal Alpha fetoprotein, maternal 3. 19 weeks gestation of ([facility]) Z3A.19 POCT urinalysis dipstick manually resulted Patient presents today for a routine obstetrics appointment. Patient is currently 19w0d with a Estimated Date of Delivery: 07/31/25. Patient to have labs drawn today and see if she is able to get anatomy scan completed. If not, patient will schedule US here for next. Documented by Anna He LPN on behalf of: Rodrigo Guzman DO documented in this encounter Plan of Treatment DateTypeDepartmentCare Team (Latest Contact Info)Llxmsypwpnt22/10/2025 11:00 AM ESTAncillary Procedure [facility] [address] [place] [phone] 04/03/2025 11:30 AM ESTRoutine [facility] [address] [place] [address] Ira Jensen PA [address] [place] [address] NameTypePriorityAssociated DiagnosesOrder ScheduleAlpha fetoprotein, maternalLab Routine Second trimester ([facility]) Expected: 03/06/2025 (Approximate), Expires: 04/06/2025documented as of this encounter Goals GoalPatient Goal TypeAssociated ProblemsRecent ProgressPatient-Stated?Author Reminders Care PlanOB RemindersDarlyn Hudson RNdocumented as of this encounter Procedures Procedure NamePriorityDate/TimeAssociated DiagnosisCommentsPOCT URINALYSIS HLPDPTWVQrsnxcp50/13/2025 10:09 AM EDT 19 weeks gestation of ([facility]) documented in this encounter Results * US OB 14+ weeks anatomy scan (03/13/2025 12:09 PM EDT)Anatomical Region LateralityModalityBodyUltrasoundSpecimen (Source)Anatomical Location / LateralityCollection Method / VolumeCollection TimeReceived Time03/13/2025 4:06 PM EDT Addenda Addendum by Burt Justice MD on 03/15/2025 7:08 AM EDT ADDENDUM #1 Due to technical factors and positioning, posterior fossa evaluation and RVOT, LVOT and four-chamber cardiac views are suboptimal. Recommend follow-up imaging attention directed to the cardiac and posterior fossa regions. TRANSCRIBED BY: ? ELECTRONICALLY SIGNED BY: Burt Justice MD Impressions 03/14/2025 7:40 AM EDT 1. Single, live intrauterine , current sonographic age of 19 weeks and 4 days, with an estimated date of delivery of August 03, 2025. 2. Posterior, marginal placenta * ??Estimated Weight (g) by Percentile is based upon an accurate estimated age based onlast menstrual period. ?? TRANSCRIBED BY: ? ELECTRONICALLY SIGNED BY: Burt Justice MD Narrative 03/14/2025 7:40 AM EDT FINDINGS: A single, live intrauterine is present with normal cardiac rate of 132 beats per minute. Normal activity and amniotic fluid volume. Morphology is grossly normal. The placenta ismarginal, inferior aspect 3 mm from the closed internal cervical os, cervical length 4-6 mm. ??The current sonographic age is 19 weeks and 4 days, based on the following measurements: ?BPD ? 4.4 cm (19 weeks, 2 days) ?Head Circumference ?16.7 cm (19 weeks, 3 days) ?Abdominal Circumference ?14.9 cm (20 weeks, 1 day) ?Femur Length ?3.1 cm (19 weeks, 4 days) ?Presentation ? Breech ?Placenta ? Marginal posterior ? Weight (g) by Percentile ??34.8 % * These measurements result in an estimated date of delivery of August 03, 2025. ??The current estimated weight is 315 grams (0 pound, 11 ounces). ?? Procedure Note Burt Justice MD - 03/14/2025 FINDINGS: A single, live intrauterine is present with normal cardiacrate of 132 beats per minute. Normal activity and amniotic fluidvolume. Morphology is grossly normal. The placenta is marginal, inferioraspect 3 mm from the closed internal cervical os, cervical length 4-6 mm.The current sonographic age is 19 weeks and 4 days, based on the followingmeasurements: BPD 4.4 cm (19 weeks, 2 days) Head Circumference 16.7 cm (19 weeks, 3 days) Abdominal Circumference 14.9 cm (20 weeks, 1 day) Femur Length 3.1 cm (19 weeks, 4 days) Presentation Breech Placenta Marginal posterior Weight (g) by Percentile 34.8 % * These measurements result in an estimated date of delivery of July. The current estimated weight is 315 grams (0 pound, 11ounces). IMPRESSION: 1. Single, live intrauterine , current sonographic age of 19weeks and 4 days, with an estimated date of delivery of August 03, 2025. 2. Posterior, marginal placenta * Estimated Weight (g) by Percentile is based upon an accurateestimated age based on last menstrual period. TRANSCRIBED BY: ELECTRONICALLY SIGNED BY: Burt Justice MD Authorizing ProviderResult TypeResult StatusCorey ThomasHolden Hospital OB US PROCEDURES Edited Result - Final * (ABNORMAL) POCT urinalysis dipstick manually resulted (03/06/2025 10:09 AM EDT)ComponentValueRef RangeTest MethodAnalysis TimePerformed AtPathologist SignatureColor, UAYellowClarity, UAClearGlucose, UANegativeNegative - 2000(110) ++++ mg/dLBilirubin, UANegativeNegative - 4(70) +++ mg/dLKetones, UA PositiveNegative - 160(16) ++++ mg/dLComment:1+Spec Grav, UA1.0201 - 1.03 Blood, UANegativeNegative - 50 Dao/mcLpH, UA6.05 - 9Protein, UANegative Negative - 2000(20) ++++ mg/dLUrobilinogen, UA0.20.2 - 12 mg/dLLeukocytes, UA NegativeNegative - 500+++ Hernandez/mcLNitrite, UANegativeNegative - Positive Specimen (Source)Anatomical Location / LateralityCollection Method / Volume Collection TimeReceived KqukUsaut13/13/2025 10:09 AM EDT Narrative Authorizing ProviderResult TypeResult StatusCorey Thomas DOPOINT OF CARE TEST ENTER/EDIT ORDERABLESFinal Result documented in this encounter Visit Diagnoses Diagnosis Screening, , for anatomic survey ([facility]) Encounter for anatomic survey Second trimester ([facility]) state, incidental 19 weeks gestation of ([facility]) Screening, , for anatomic survey ([facility]) Encounter for anatomic survey documented in this encounter Additional Health Concerns Active ProblemsNoted DateDiagnosed DateOB Zbocibtlp86/11/2025 documented as of this encounter Care Teams Team MemberRelationshipSpecialtyStart DateEnd Date Phuong Karly PCP - [facility] 11/23/23documented as of this encounter
--- OUTSIDE RECORDS SUMMARY | 2025-03-28 22:20 | XMS_ITS | CCD ---
Author Organization [facility] Care Team Providers Care Feed Mixer Name Role Phone Maria R Disla Unavailable Radhika Enrique Unavailable NON STAFF Primary Care Provider Unavailanna marie Arthur [facility] Michelle Hardwick Emergency Provider FRANCISCO J Enrique Attending Provider [phone] NAIF MARIA R Primary Care Unavailable DR GUILHERME WALTON Admitting [...] WAQAR Admitting Unavailable WAQAR IVAN Attending Unavailable MONCHOSARWATID Consulting Unavailable NAIF, MARIA R Primary Care Unavailable PAY ., DR PEARSON Admitting Unavailable PAY ., DR PEARSON Attending Unavailable PAY ., DR PEARSON Consulting Unavailable Naif GOPI, Maria R Unavailable SASHA XIE Attending Unavailable NEO, ALLIE Referring Unavailable NEO, ALLIE Referring Unavailable SHELLY PARSONS Attending Unavailable FAISAL TOMS Referring Unavailable NETTA DILLARD Attending Unavailable NEO, ALLIE Referring Unavailable NEO ALLIE Attending Unavailable MALONE TOMS Attending Unavailable NEO, ALLIE Referring Unavailable NON STAFF Primary Care Provider UnavailISRAEL Torres Attending Provider [phone] ISRAEL Christie Attending Provider [phone] ISRAEL Alas Attending Provider MARIA R DISLA Attending Unavailable MARIA R DISLA Admitting Unavailable MARZENA MARTINEZ Attending Unavailable MARZENA MARTINEZ Admitting Unavailable MARIA R DISLA Attending Unavailable MARIA R DISLA Admitting Unavailable Kromer, Karly Unavailable Unavailable NON STAFF Primary Care Provider Unavailanna marie e Rajwinder Bang APRN Attending Provider [phone] Fred Longoria PA-C Attending Provider Valente Hebert DO Emergency Provider [phone] NON STAFF Primary Care Unavailable Valente Hebert Attending Unavailable Valente Hebert Admitting Unavailable IRA JENSEN Attending Unavailable WESLEY BROWNING Attending Unavailable RODRIGO GUZMAN Attending Unavailable IRA JENSEN Attending Unavailable IRA JENSEN Attending Unavailable RODRIGO GUZMAN Attending Unavailable Medications Current Medications MedicationDrug Class(es)DatesSig (Normalized)Sig (Original)acetaminophen 300 mg / codeine phosphate 30 mg oral tablet (2 sources)Opioid AgonistStart: 02-09-2025 End: 95-54-6455gcni 1 tablet by mouth every six hours as needed for pain and headache and headacheacetaminophen-codeine (Tylenol w/ Codeine #3) 300-30 MG tablet Indications: Nonintractable headache, unspecified chronicity pattern, unspecified headache type Take 1 tablet by mouth every 6 (six) hours if needed for severe pain for up to 5 days 20 tablet 02/09/2025 02/14/2025 Active amoxicillin 875 mg oral tablet (6 sources)Penicillin-class AntibacterialStart: 36-77-0998tzki 1 tablet by mouth every twelve hoursAmoxicillin 875 MG 1 tablet Orally every 12 hrs for 7 days Feb, Activeclindamycin 10 mg/ml topical solution (12 sources)Lincosamide AntibacterialStart: 10-27-2022 End: 00-13-6678nknagkghnfk (Cleocin T) 1 % external solution APPLY TO AFFECTED AREAS ON GROIN ONCE DAILY AFTER SHOWER. 10/27/2022 11/07/2024 Discontinued (Therapy completed)Comment on above:Apply 1 Application to affected area once daily.24 hr desvenlafaxine succinate 25 mg extended release oral tablet (5 sources)Serotonin and Norepinephrine Reuptake InhibitorStart: 63-68-4733wrpl 1 tablet by mouth every twenty-four hoursPristiq 25 MG 1 tablet Orally Once a day for 30 day(s) Nov, Activeetonogestrel 68 mg drug implant (20 sources)ProgestinStart: 11-17-2022 End: 95-80-0470ijugvdeuovcx-eluting 68 mg contraceptive implant Indications: Encounter for removal and reinsertionof Nexplanon 1 each by Implant route 1 (one) time for 1 dose. 1 each 11/17/2022 11/07/2024 Discontinued (Therapy completed)Start: 41-34-1488svlubtstegmq (NEXPLANON) subdermal implant 68 mg 1 Each by SUBDERMAL route. 11/17/2022 ActiveNexplanon ActiveComment on above:1 Each by SUBDERMAL route.hydrOXYzine hydrochloride 10 mg oral tablet (14 sources)AntihistamineStart: 32-38-1577adgeYBLuwec HCl 10 MG 1 tablet as needed Orally at bedtime for 30 day(s) September, ActiveStart: 10-14-2021 hydrOXYzine HCl 25 MG 1 tablet as needed Orally at bedtime for 30 day(s) September, Activelisdexamfetamine dimesylate 40 mg oral capsule (4 sources)Central Nervous System StimulantStart: 11-09-2024 End: 25-42-8129cjxpqfrhm oxide 400 mg oral tablet (9 sources)Start: 02-07-2025 End: 47-96-4730xmmy 1 tablet by mouth once dailymagnesium oxide (Mag-Ox) 400 MG tablet Indications: Nausea and vomiting in ([facility]) Take1 tablet (400 mg) by mouth Daily 30 tablet 6 02/07/2025 09/05/2025 Activenitrofurantoin, macrocrystals 25 mg / nitrofurantoin, monohydrate 75 mg oral capsule (2 sources)Nitrofuran AntibacterialStart: 64-53-8280ewhx 1 capsule by mouth every twelve hoursMacrobid 100 MG 1 cap(s) Orally 2 times a day for 5 day(s) Jun, Activeondansetron 4 mg oral tablet (9 sources)Serotonin-3 Receptor AntagonistStart: 09-76-7946wwan 1 tablet by mouth every six hours as needed for nausea and nausea, then take 1 tablet by mouthevery six hours as needed for nausea and nauseaondansetron (Zofran) 4 MG tablet Indications: Nausea and vomiting in ([facility]) Take 1 tablet (4 mg) by mouth every 6 (six) hours if needed for nausea or vomiting for up to 120 doses Take 1 tablet by mouth every 6 hours as needed for nausea. 30 tablet 3 02/07/2025 Activephenazopyridine hydrochloride 200 mg oral tablet (2 sources)Start: 19-87-3987ugaq 1 tablet by mouth every eight hoursPyridium 200 MG 1 tablet after meals Orally Three times a day for 2 day(s) Jun, ActivePrenatal Vit-Fe Fumarate-FA ( Vitamins) 28-0.8 MG tablet (17 sources)Start: 12-02-2024 End: 86-55-5330uuun 1 tablet by mouth once dailyPrenatal Vit-Fe Fumarate-FA ( Vitamins) 28-0.8 MG tablet Indications: Encounter for supervision of normal first in first trimester ([facility]) Take 1 tablet by mouth Daily 30 tablet 11 12/02/2024 12/02/2025 Activepromethazine hydrochloride 12.5 mg oral tablet (5 sources)PhenothiazineStart: 01-08-4898ftas 2 tablets by mouth every six hours as needed for nausea and vomiting and headache and nausea and headache and nauseapromethazine (Phenergan) 12.5 MG tablet Indications: Nonintractable headache, unspecified chronicity pattern, unspecified headache type , Nausea Take 2 tablets (25 mg) by mouth every 6 (six) hours ifneeded for nausea or vomiting for up to 30 doses Take 1 tablet by mouth every 6 hours as needed for nausea. 30 tablet 2 02/09/2025 ActivetraZODone hydrochloride 100 mg oral tablet (14 sources)Serotonin Reuptake InhibitorStart: 11-15-2024 End: 05-02-2357Alddw: 09-16-2023 End: 43-29-7376toug 1 tablet by mouth once dailyTrazodone 50 mg tablet Discontinued 50 MG PO Daily September 16, 2023 12:00am November 15, 2024 10:11am24 hr venlafaxine 37.5 mg extended release oral capsule (20 sources)Serotonin and Norepinephrine Reuptake InhibitorStart: 02-28-2020 End: 21-81-1823lcaf 1 capsule by mouth every twenty-four hoursEffexor XR 37.5 MG 1 capsule with food Orally Once a day for 30 days Feb, ActiveStart: 17-46-8725kcsm 1 capsule by mouth every twenty-four hoursEffexor XR 75 MG 1 capsule with food Orally Once a day for 30 days patient lost presciption Nov, Active Completed/Discontinued Medications MedicationDrug Class(es)DatesSig (Normalized)Sig (Original)[id number] 200 actuat albuterol 0.09 mg/actuat metered dose inhaler (15 sources)beta2-Adrenergic AgonistStart: 11-09-2024 End: 15-09-2633Vmlboslfa Sulfate 90 mcg/actuation HFA aerosol inhaler Discontinued 1 INH INHALATION Every 4 hours as needed for shortness of breath or wheezing 6.7 November 09, 2024 12:00am November 15, 2024 10:10amStart: 12-25-2020 take 2 puff(s) by inhalation every four hours as neededAlbuterol Sulfate HFA 108 (90 Base) MCG/ACT 2 puffs as needed Inhalation every 4 hrs Dec, Active Start: 57-54-3315oorw 2 puff(s) by inhalation every four hours as needed Albuterol Sulfate HFA 108 (90 Base) MCG/ACT 2 puffs as needed Inhalation every 4 hrs Dec, ActiveStart: 70-55-1160zehleyuscgu 875 mg / clavulanate 125 mg oral tablet (1 source)Penicillin-class AntibacterialStart: 11-09-2024 End: 56-46-0672zbsr 1 tablet by mouth twice daily at mealtimeAmoxicillin-Pot Clavulanate 875-125 mg tablet Discontinued 1 TAB PO Twice daily 14 7 November 09, 2024 12:00am November 15, 2024 10:10am take with foodARIPiprazole 5 mg oral tablet (20 sources)Atypical AntipsychoticStart: 13-65-6191wvtb 1 tablet by mouth every twenty-four hoursARIPiprazole 2 MG 1 tablet Orally Once a day for 30 days Feb, ActiveStart: 02-26-2021 End: 93-57-8332Gsoyuellsgqq 5 mg tablet Discontinued MG PO November 05, 2024 12:00am November 15, 2024 10:11amComment on above:Take 1 tablet by mouth once daily.benzoyl peroxide 100 mg/ml medicated liquid soap (16 sources)Start: 09-22-2022 End: 82-79-4982TOQARQ AC WASH 10 % external wash WASH, LATHER AND RINSE AFFECTED AREAS IN THE GROIN AREA DAILY 09/22/2022 12/19/2024 Discontinued (Therapy completed)Comment on above:Apply 1 Application to affected area once daily. cefdinir 300 mg oral capsule (7 sources)Cephalosporin AntibacterialStart: 09-16-2023 End: 90-55-0066iajj 1 capsule by mouth twice dailyCefdinir 300 mg capsule Discontinued 300 MG PO Twice daily 14 September 16, 2023 12:00am October 10:35amcyclobenzaprine hydrochloride 10 mg oral tablet (20 sources)Muscle RelaxantStart: 09-16-2023 End: 90-13-1827twxu 1 tablet by mouth once dailyCyclobenzaprine 10 mg tablet Discontinued 10 MG PO Daily September 16, 2023 12:00am November 05, 2024 9:18am Start: 46-27-0117abmc 1 tablet by mouth every eight hoursCyclobenzaprine HCl 5 MG 1 tablet as needed Orally Three times a day Feb, Not-Taking dextromethorphan hydrobromide 15 mg / guaiFENesin 400 mg / pseudoephedrine hydrochloride 60 mg oraltablet (1 source)alpha-Adrenergic Agonist, Uncompetitive C-erzlzo-O-aspartate Receptor Antagonist, Sigma-1 AgonistStart: 11-05-2024 End: 63-79-7449jhnq 4 tablets by mouth every twenty-four hours as needed Jjruhwfgvwmqwqr-Dg-Ajkqjlqsmbm (Capmist Dm) 60-15-400 mg tablet Discontinued 1 TAB PO EVERY 4-6 HOURS as needed for cold symptoms November 05, 2024 12:00am November 15, 2024 10:11am do not exceed 4 doses per 24 hrsdoxycycline hyclate 100 mg oral capsule (16 sources)Tetracycline-class DrugStart: 09-22-2022 End: 45-97-7400eyqy 1 capsule by mouth once daily at mealtimedoxycycline (Vibramycin) 100 MG capsule TAKE 1 CAPSULE BY MOUTH DAILY WITH FOOD AND WATER 09/22/2022 12/19/2024 Discontinued (Therapy completed)Comment on above:Take 1 capsule by mouth once daily.fluconazole 150 mg oral tablet (2 sources)Azole AntifungalStart: 02-02-2024 End: 23-49-3504Hpsbhlabshv 150 mg tablet Discontinued 150 MG PO Q3D 2 0 February 02, 2024 12:00am November 05, 2024 9:17am may repeat x 1 in 3 days if neededketorolac tromethamine 10 mg oral tablet (3 sources)Nonsteroidal Anti-inflammatory Drug, Cyclooxygenase InhibitorStart: 01-20-2024 End: 26-75-1555jynh 1 tablet by mouth three times daily as neededketorolac (Toradol) 10 MG tablet Take 1 tablet by mouth 3 (three) times a day as needed 01/20/2024 12/19/2024 Discontinued (Therapy completed)3 ml liraglutide 6 mg/ml pen injector (7 sources)GLP-1 Receptor Agonist End: 75-42-0248Gprgqjc 18 MG/3ML injection 1 (one) time each day at the same time. 12/19/2024 Discontinued (Therapy completed)metroNIDAZOLE 500 mg oral tablet (1 source)Nitroimidazole AntimicrobialStart: 02-05-2024 End: 58-81-6128sddt 1 tablet by mouth every twelve hoursMetronidazole 500 mg tablet Discontinued 500 MG PO Every 12 hours 14 February 05, 2024 12:00am November 05, 2024 9:17amminocycline 100 mg oral capsule (7 sources)Tetracycline-class DrugStart: 09-16-2023 End: 16-07-3570ohye 1 mg by mouth once dailyMinocycline 100 mg capsule Discontinued MG PO Daily September 16, 2023 12:00am January 20, 2024 12:02pm Start: 09-16-2023 End: 82-83-6420pghz 1 mg by mouth once dailyMinocycline Discontinued MG PO Daily September 16, 2023 12:00am January 20, 2024 12:02pmpredniSONE 20 mg oral tablet (1 source)Start: 11-09-2024 End: 85-54-1575bdwu 3 tablets by mouth once daily at mealtimePrednisone 20 mg tablet Discontinued 60 MG PO Daily 15 November 09, 2024 12:00am November 15, 2024 10:11am with foodspironolactone 50 mg oral tablet (16 sources)Aldosterone Antagonist End: 74-04-2818jjifqxvavxvavz (Aldactone) 50 MG tablet 12/19/2024 Discontinued (Therapy completed)Comment on above:Take 1 tablet by mouth once daily. valACYclovir 1000 mg oral tablet (16 sources)Herpesvirus Nucleoside Analog DNA Polymerase Inhibitor, Herpes Simplex Virus Nucleoside Analog DNA Polymerase Inhibitor, Herpes Zoster Virus Nucleoside Analog DNA Polymerase InhibitorStart: 11-15-2024 End: 34-88-2569zprWEEgkabkd (Valtrex) 1 g tablet Take 1,000 mg by mouth in the morning and 1,000 mg before bedtime. 11/15/2024 02/09/2025 DiscontinuedStart: 75-00-0871mfwy 1 tablet by mouth every eight hoursValtrex 1 GM 1 tablet Orally 3 times a day for 7 days Jan, Not-Takingtake 1 tablet by mouth every twelve hoursValtrex 1 GM 1 tablet Orally twice a day for 7 days Active Problems Active Problems Problem ClassificationProblemDateDocumented DateEpisodic/Chronic Administrative/social admission (1 source)Dietary counseling and surveillance; Translations: [Dietary counseling and surveillance]Onset: 42-93-3274PtdahsfuDpqinsv disorders (20 sources)Generalized anxiety disorder; Translations: [Generalized anxiety disorder]Onset: 02-26-2021 Resolved: 81-55-3490ElpeyfrMtbbvs (20 sources)Exacerbation of asthma; Translations: [Asthma exacerbation]Onset: 214391-11-8654NbqvbgtForhejrua-oqejvth, conduct, and disruptive behavior disorders (1 source)Attention-deficit hyperactivity disorder, unspecified type; Translations: [ADHD UNSPECIFIED TYPE]Onset: 34-66-3063TppvecaWoiyvoyue-deficit, conduct, and disruptive behavior disorders (16 sources)Attention deficit hyperactivity disorder; Translations: [Attention- deficit hyperactivity disorder, unspecified type]Onset: ChronicFracture of lower limb (14 sources)Nondisplaced fracture of fifth metatarsal bone, left foot, subsequent encounter for fracture with routine healing; Translations: [Closed nondisplaced fracture of fifth metatarsal bone of left foot with routine healing, subsequent encounter]EpisodicGenitourinary symptoms and ill-defined conditions (1 source)Frequency of micturitionEpisodicHeadache; including migraine (4 sources)Headache; Translations: [Nonintractable headache, unspecified chronicity pattern, unspecified headache type]10-53-0520OirdcepcNxtpmdgwcabjx and screening for infectious disease (4 sources)Contact with and (suspected) exposure to other viral communicable diseases; Translations: [Encounter for screening for other viral diseases]Onset: 03-30-2021 Resolved: 06-52-0268EcxmzavqUepjvjlwygoh diseases of female pelvic organs (1 source)Acute vaginitis; Translations: [ACUTE VAGINITIS]Onset: 09-23-2022 EpisodicIntestinal infection (1 source)Viral intestinal infection, unspecified; Translations: [VIRAL INTESTINAL INFECTION UNSPEC]Onset: 79-56-4051MdmwjmugKuqf disorders (16 sources)Depressive disorder; Translations: [Depression]Onset: 01-19-2023 52-60-4599XyqgihsVkbrlf and vomiting (2 sources)Nausea; Translations: [Nausea]10-97-0941EcmopjvtXkmv wounds of extremities (1 source)Laceration without foreign body of right middle finger without damage to nail, initial encounterEpisodicOther complications of (2 sources)Maternal obesity complicating , childbirth and the puerperium, antepartum; Translations: [Obesity complicating , first trimester]58-11-6787NtglhgyYkiae complications of (2 sources)Herpes in ; Translations: [Other viral diseases complicating , first trimester]81-01-2525YjdsgkqyAucsn complications of (4 sources)Vomiting of , unspecified; Translations: [Unspecified vomiting of , unspecified as to episode of care or not applicable] 22-18-1386AexjdliuYgdak connective tissue disease (3 sources)Myalgia, unspecified siteOnset: 05-28-2021 Resolved: 24-63-2193XrfxrxcjMuzrw female genital disorders (4 sources)Vaginal discharge; Translations: [Other specified noninflammatory disorders of vagina]47-90-8831RwrzysgfPctgb female genital disorders (1 source)Other specified noninflammatory disorders of vagina; Translations: [Leukorrhea, not specified as infective]55-23-1191PpmtcillQebyf gastrointestinal disorders (3 sources)Diarrhea, unspecified; Translations: [DIARRHEA UNSPECIFIED]Onset: 76-29-4630AefuxfuuGyelf injuries and conditions due to external causes (6 sources)Injury of right leg; Translations: [Unspecified injury of right ankle, initial encounter]85-80-2746YdfqjyqwNuwsp nutritional; endocrine; and metabolic disorders (14 sources)Obesity; Translations: [Obesity, unspecified]ChronicOther nutritional; endocrine; and metabolic disorders (1 source)Obesity, unspecified; Translations: [OBESITY UNSPECIFIED]Onset: 50-35-2059FtrqkqvUbjoj nutritional; endocrine; and metabolic disorders (1 source)Body mass index (BMI) 45.0-49.9, adult; Translations: [BODY MASS INDEX BMI 45.0-49.9 ADULT]Onset: 51-65-8424DqjkrlnXlbcp nutritional; endocrine; and metabolic disorders (5 sources)Severe obesity; Translations: [Morbid (severe) obesity due to excess calories]68-16-8811TstrcbfJpiis nutritional; endocrine; and metabolic disorders (10 sources)Body mass index 40+ - severely obese; Translations: [Morbid (severe) obesity due to excess calories]Onset: 927547-54-2041BfhwwnjThvsc nutritional; endocrine; and metabolic disorders (3 sources)Body mass index (BMI) 40.0-44.9, adult; Translations: [Body mass index (BMI) 40.0-44.9, adult (HCC)]Onset: 92-97-2215NcymwtrXklje nutritional; endocrine; and metabolic disorders (2 sources)Morbid (severe) obesity due to excess calories; Translations: [Class 3 severe obesity with serious comorbidity and body mass index (BMI) of 40.0 to 44.9 in adult, unspecified obesity type (HCC)]Onset: 88-01-5572DotnaqkFadez and delivery including normal (11 sources)Normal ; Translations: [Encounter for supervision of normal first , first trimester]25-68-4993CuubgljhAomci screening for suspected conditions (not mental disorders or infectious disease) (2 sources)Cancer cervix screening status; Translations: [Encounter for screening for malignant neoplasm of cervix]82-01-2052EqzmsgetGgtsu skin disorders (1 source)Follicular disorder, unspecified; Translations: [FOLLICULAR DISORDER UNSPECIFIED]Onset: 15-39-5870OgvfrhphBdmph upper respiratory infections (6 sources)Acute pharyngitis; Translations: [Acute pharyngitis, unspecified] 13-73-4723EuvkltqnMruvag media and related conditions (3 sources)Otitis media, unspecified, right ear; Translations: [Unspecified otitis media]07-93-1533QhgfzpdtEmbxamut codes; unclassified (14 sources)Insomnia; Translations: [Insomnia, unspecified]33-59-3829Wvftqmtq Residual codes; unclassified (14 sources)Patient encounter status; Translations: [Procedure and treatment not carried out due to patient leaving prior to being seen by health care provider] 04-21-0176PniralmeDafcxua on above:Problem List clean-up per request of Phys. EHR CmteResidual codes; unclassified (5 sources)Procedure and treatment not carried out due to patient leaving prior to being seen by health care provider; Translations: [PROC AND TX NOT CARRIED OUT PT LEAVE]Onset: 21-14-3845OmlmgwntPyltzqqk codes; unclassified (1 source)Nicotine-filled electronic cigarette user; Translations: [Tobacco use] 65-31-8357JndyqafsYoyziqfe codes; unclassified (1 source)Tobacco use; Translations: [Vapes nicotine containing substance]Onset: 46-09-6851OijzmgisXfnigpsr codes; unclassified (2 sources)Gestation period, 13 weeks; Translations: [13 weeks gestation of ]82-38-3790EtoniaqlVocnzzab codes; unclassified (2 sources)Gestation period, 12 weeks; Translations: [12 weeks gestation of ]39-24-2578VitzckfgEqcnzpig codes; unclassified (4 sources)Gestation period, 15 weeks; Translations: [15 weeks gestation of ]51-78-8245RrjjgyktQcorhcxa codes; unclassified (2 sources)Gestation period, 19 weeks; Translations: [19 weeks gestation of ]08-36-0628GukpuuulXiop and subcutaneous tissue infections (4 sources)Cutaneous abscess of groin; Translations: [CUTANEOUS ABSCESS OF GROIN]Onset: 97-13-8246IsnglbpsPvvluko and strains (11 sources)Sprain of right ankle; Translations: [Sprain of unspecified ligament of right ankle, initial encounter]31-40-3658QevehwjmXwsutifdn-related disorders (1 source)Nicotine dependence, cigarettes, uncomplicated; Translations: [NICOTINE DEPEND CIGARETTES UNCOMP]Onset: 45-56-0766UshacaiZtzuzqrmz-related disorders (2 sources)Marijuana user; Translations: [Cannabis use, unspecified, uncomplicated]Onset: 997152-66-0560AlkqjnggIgjdsep (7 sources)Syncope; Translations: [Syncope and collapse]59-91-1184Nzbsdjiw Systemic lupus erythematosus and connective tissue disorders (7 sources)Lupus erythematosus; Translations: [Systemic lupus erythematosus, unspecified]39-41-9271UiqsbocCzixtshyegqh (17 sources)OB RemindersOnset: 694059-67-1565Evvllsy tract infections (1 source)Urinary tract infection, site not specifiedEpisodicViral infection (4 sources)Zoster without complications; Translations: [Herpes zoster]Onset: 11-11-2021 Resolved: 58-23-9195Tcsarlqa Past or Other Problems Problem ClassificationProblemDateDocumented DateEpisodic/ChronicOpen wounds of head; neck; and trunk (1 source)Puncture wound without foreign body of lip, initial encounter; Translations: [Puncture wound without foreign body of lip, initial encounter S01.531A]Onset: 03-07-2021 Resolved: 96-01-1009IlaogzziVxkps aftercare (1 source)Other long-term (current) drug therapy; Translations: [OTH RESIDENTIAL CURRENT DRUG THERAPY]Onset: 68-91-7254IvponxunEorky inflammatory condition of skin (4 sources)Pruritus, unspecified; Translations: [PRURITUS UNSPECIFIED]Onset: 78-03-0266DawohjxkKgcja skin disorders (4 sources)Follicular cyst of the skin and subcutaneous tissue, unspecified; Translations: [FOLLICULAR CYST SKIN SUBQ TISS UNS]Onset: 00-93-9930Gyexwwni Residual codes; unclassified (2 sources)Insomnia, unspecifiedOnset: 10-14-2021 Resolved: 34-33-4809Ijhjtvmz Results Test NameValueInterpretationReference RangeFacilityUrinalysis macro (dipstick) panel (U)on 27-07-2364Hhmdtfwpm, UANegativeNegative - 4(70) +++ mg/dLNOMS HealthcareBlood, UANegativeNegative - 50 Dao/mcLNOMS HealthcareClarity, UAClear NOMS HealthcareColor, UAYellowNOMS HealthcareGlucose, UANegativeNegative - 2000(110) ++++ mg/dLNOMS HealthcareInterpretation and review of laboratory resultsAbnormalNOMS HealthcareKetones, UAPositiveNegative - 160(16) ++++ mg/dL [facility] HealthcareComment on above:1+Leukocytes, UANegativeNegative - 500+++ Hernandez/mcLNOMS HealthcareNitrite, UANegativeNegative - PositiveNOMS HealthcarepH, UA6.05 - 9NOMS HealthcareProtein, UANegativeNegative - 2000(20) ++++ mg/dLNOMS HealthcareSpec Grav, UA1.0201 - 1.03NOMS HealthcareUrobilinogen, UA0.20.2 - 12 mg/dLNOMS HealthcareNOMS HealthcareUrinalysis macro (dipstick) panel (U)on 10-98-3363Rasfklnqd, UANegativeNegative - 4(70) +++ mg/dLNOMS HealthcareBlood, UANegativeNegative - 50 Dao/mcLNOMS HealthcareClarity, UAClearNOMS Healthcare Color, UAYellowNOMS HealthcareGlucose, UANegativeNegative - 2000(110) ++++ mg/dL N[facility] HealthcareInterpretation and review of laboratory resultsNormalNOMS HealthcareKetones, UANegativeNegative - 160(16) ++++ mg/dLNOMS Healthcare Leukocytes, UANegativeNegative - 500+++ Hernandez/mcLNOMS HealthcareNitrite, UA NegativeNegative - PositiveNOMS HealthcarepH, UA6.55 - 9NOMS HealthcareProtein, UANegativeNegative - 2000(20) ++++ mg/dLNOMS HealthcareSpec Grav, UA1.0151 - 1.03NOMS HealthcareUrobilinogen, UA1.00.2 - 12 mg/dLNOMS HealthcareNOMS HealthcareRECURRENT VAGINITIS (HTRX)on 56-37-8265SGJMHINSZ LANWZOB6OFOQ HealthcareATOPOBIUM VAGINAENot detectedNOMS HealthcareBVAB 2,3 (BACTERIAL VAGINOSIS ASSOCIATED BACTERIA 2, 3); MOBILUNCUS [id number] HealthcareBVAB 2,3 (BACTERIAL VAGINOSIS ASSOCIATED BACTERIA 2, 3); MOBILUNCUS SPPNot detectedNOMS HealthcareCANDIDA ALBICANS, PARAPSILOSIS, [id number] HealthcareCANDIDA ALBICANS, PARAPSILOSIS, TROPICALISNot detectedNOMS HealthcareCANDIDA GLABRATA0 NOMS HealthcareCANDIDA GLABRATANot detectedNOMS HealthcareCANDIDA GZOIOM7NYET HealthcareCANDIDA KRUSEINot detectedNOMS HealthcareCHLAMYDIA UTZISSEQOPW8RTSJ HealthcareCHLAMYDIA TRACHOMATISNot detectedNOMS HealthcareGARDNERELLA VAGINALIS0 NOMS HealthcareGARDNERELLA VAGINALISNot detectedNOMS HealthcareMEGASPHAERA (TYPES 1, 2)0NOMS HealthcareMEGASPHAERA (TYPES 1, 2)Not detectedNOMS Healthcare MYCOPLASMA GNBGXQYPVV5OPUB HealthcareMYCOPLASMA GENITALIUMNot detectedNOMS HealthcareNEISSERIA WUBKHPHPCFD6LFHT HealthcareNEISSERIA GONORRHOEAENot detected NOMS HealthcareTRICHOMONAS GKZMVGYDP5IBPO HealthcareTRICHOMONAS VAGINALISNot detectedNOMS HealthcareNOMS HealthcareUrinalysis macro (dipstick) panel (U)on 41-80-6925Ezsjtpzvb, UANegativeNegative - 4(70) +++ mg/dLNOMS HealthcareBlood, UANegativeNegative - 50 Dao/mcLNOMS HealthcareClarity, UAClearNOMS Healthcare Color, UAYellowNOMS HealthcareGlucose, UANegativeNegative - 1999(110) ++++ mg/dL NOMS HealthcareInterpretation and review of laboratory resultsNormalNOMS HealthcareKetones, UANegativeNegative - 160(16) ++++ mg/dLNOMS Healthcare Leukocytes, UANegativeNegative - 500+++ Hernandez/mcLNOMS HealthcareNitrite, UA NegativeNegative - PositiveNOMS HealthcarepH, UA75 - 9NOMS HealthcareProtein, UA NegativeNegative - 2000(20) ++++ mg/dLNOMS HealthcareSpec Grav, UA1.011 - 1.03 NOMS HealthcareUrobilinogen, UA0.20.2 - 12 mg/dLNOCarondelet Health Healthcare BOX TESTon 02-99-5088CEJ TEST SENT OUTunVeterans Health Administration FkwkcqwgfxJWA9gokldWYOM DadpfjctdvRCW41/28/25NOMI HealthcareCLINISYNCNOMS HealthcareUrinalysis macro (dipstick) panel (U)on 84-79-4103Zfiywoxhx, UANegativeNegative - 4(70) +++ mg/dL NOMS HealthcareBlood, UANegativeNegative - 50 Dao/mcLNOMI HealthcareClarity, UA ClearNOMI HealthcareColor, UAYellowNOMI HealthcareGlucose, UANegativeNegative - 2000(110) ++++ mg/dLNOMI HealthcareInterpretation and review of laboratory resultsNormalHIGHLAND RIDGE [facility]PITAL HealthcareKetones, UANegativeNegative - 160(16) ++++ mg/dLHIGHLAND RIDGE HOSPITAL HealthcareLeukocytes, UANegativeNegative - 500+++ Hernandez/mcLHIGHLAND RIDGE HOSPITAL HealthcareNitrite, UANegativeNegative - PositiveNOMS HealthcarepH, UA65 - 9NOMS HealthcareProtein, UANegativeNegative - 2000(20) ++++ mg/dLNOMI HealthcareSpec Grav, UA1.021 - 1.03 [facility] CenterUrobilinogen, UA1.00.2 - 12 mg/dLECU [facility] - Specimen informationon 54-84-2219Tnxhuhao type Nom (Spec)vaginal NOMS HealthcareNo Panel Informationon 22-52-1782WLLSOMNXWJX DNA(PCR)Negative NegatvieNOMI HealthcareInterpretation and review of laboratory resultsNormalNOMissouri Southern HealthcareNOMI HealthcareGlucose, UANegativeNegative - 2000(110) ++++ mg/dLNOMI HealthcareInterpretation and review of laboratory resultsNormalHIGHLAND RIDGE HOSPITAL Healthcare Protein, UANegativeNegative - 2000(20) ++++ mg/dLKindred Hospital [facility] IGP,APTIMA HPV,AGE GDLNon 77-60-9800GPQ GDLN ACOG TESTINGNote.[facility] Healthcare Comment on above:TESTS RESULT FLAG UNITS REF RANGE LAB Clinician Provided Cytology Information Source.............Cervix;Endocervix No. of containers..01 ThinPrep Vial Age Tonya FU Yolanda... FLAG LEGEND: L-Low Normal,H-High Normal,LL-Alert Low,HH-Alert High <-Panic Low,>-Panic High,A-Abnormal,AA-Critical Abnormal Performed at: 01 =G [address] [address] Allison Miller MD, IGP, RFX APTIMA HPV ASCUNote.[facility] CenterComment on above:TESTS RESULT FLAG UNITS REF RANGE LAB DIAGNOSIS: 02 NEGATIVE FOR INTRAEPITHELIAL LESION OR MALIGNANCY. Specimen adequacy: 02 Satisfactory for evaluation. No endocervical component is identified. Performed by: Jay Jenkins Spanish Literature Professor ([facility]) . 02 Note: Note 02 The Pap [...] <-Panic Low,>-Panic High,A-Abnormal,AA-Critical Abnormal Performed at: [address] [address] Allison Miller MD, Performed at: =G - [address] [id number] Window Dresser: Allison Miller MD, Phone: [phone] Performed at: [address] [id number] Window Dresser: Allison Miller MD, Phone: [phone] BRUSH-SPATULA CERVIX ENDOCERVIX CLINISYNCNOMS HealthcareANA w/Reflex if POSon 60-34-1177Fmwwvgp Ab Ql (S) NegativeInvalid Interpretation CodeNegativeFisher Holy Cross HospitalComment on above:Result Comment: Performed at: [facility] [id number] PhD Fara BraswellPerformed By: #### [id number] #### [facility] [address] [place] [address]Bcdplsykhq 11-39-8010Vaxzudbw [Mass/Vol]15.2 microgram/dL Invalid Interpretation Code6.2-19.4FUpper Valley Medical CenterComment on above: Result Comment: Please Note: The reference interval and flagging for this test is for an AM collection. If this is a PM collection please use: Cortisol PM: 2.3-11.9 Performed at: [address] [id number] PhD Fara BraswellPerformed By: #### [id number] #### [facility] [address] [place], [place] [address]HCZ and LHon 08-05-7306Hpzmeschtzq Qn7.7 m[IU]/mLInvalid Interpretation CodeAvita Health SystemComment on above:Result Comment: Adult Female Range Follicular phase 3.5 - 12.5 Ovulation phase 4.7 - 21.5 Luteal phase 1.7 - 7.7 Postmenopausal 25.8 - 134.8 Performed at: [address] [id number] PhD Fara Redmondformed By: #### [id number] #### [facility] [address] [place], [place] [address]Klsheqjf Qn8.6 m[IU]/mLInvalid Interpretation CodeAvita Health SystemComment on above:Result Comment: Adult Female Range Follicular phase 2.4 - 12.6 Ovulation phase 14.0 - 95.6 Luteal phase 1.0 - 11.4 Postmenopausal 7.7 - 58.5Performed By: #### [id number] #### [facility] [address], [place] [address]Hxpzbmm Lvlon 87-71-8923Puznkxk Qn9.4 u[IU]/mLInvalid Interpretation Code2.6-24.9Avita Health SystemComment on above:Result Comment: Performed at: [address] [id number] PhD Fara Redmondformed By: #### [id number] #### [facility] [address] [place], [place] [address]LB Quanton 06-87-1197Blurxeclki factor Qn[IU]/mLInvalid Interpretation Code<14.0Avita Health SystemComment on above:Result Comment: Performed at: [address] [id number] PhD Fara Redmondformed By: #### [id number] #### [facility] [address] [place], [place] [address]T5 Totalon 87-16-0537E1 [Mass/Vol]131 ng/dLInvalid Interpretation Clyo96-498XddagpAvita Health SystemComment on above:Result Comment: Performed at: [facility] [address] [place], [place] [id number] PhD Fara Redmondformed By: #### [id number] #### [facility] [address], [place] [address]EQVtn 14-96-0545Gqgfktc [Mass/Vol]4.3 g/dLNormal3.3-5.0Avita Health SystemComment on above:Performed By: #### [id number] #### [facility] [address], [place] [address]Aktbovk/Globulin (S) [Mass conc ratio]1.0Zvzuky6.1-2.2FUpper Valley Medical CenterComment on above:Performed By: #### [id number] #### [facility] [address], [place] [address]FXI [Catalytic activity/Vol]82 Int._Unit/SQuljjw26-22IbjaktAvita Health SystemComment on above:Performed By: #### [id number] #### [facility] [address], [place] [address]VYE No additional P-5'-P [Catalytic activity/Vol]13 Int._Unit/L Normal6-46Avita Health SystemComment on above:Performed By: #### [id number] #### [facility] [address], [place] [address]Tcqeg gap [Moles/Vol]11 mmol/LNormal6-16Fisher Ricky Medical CenterComment on above:Performed By: #### [id number] #### [facility] [address], [place] [address]DFY [Catalytic activity/Vol]16 Int._Unit/LNormal5-43Av[facility] Health SystemComment on above:Performed By: #### [id number] #### [facility] [address], [place] [address]Ysvnriaur [Mass/Vol]0.8 mg/dLNormal0.0-1.1FUpper Valley Medical CenterComment on above:Performed By: #### [id number] #### [facility] [address], [place] [address]Ihpdmej [Mass/Vol]9.4 mg/dLNormal8.9-11.1FUpper Valley Medical CenterComment on above:Performed By: #### [id number] #### [facility] [address], [place] [address]Kqvcvwsa [Moles/Vol]104 mmol/JLirwjf795-616GvvfpaAvita Health SystemComment on above:Performed By: #### [id number] #### [facility] [address] [place] [address]RT3 [Moles/Vol]27 mmol/XGssgbu54-19UwylnvAvita Health System Comment on above:Performed By: #### [id number] #### [facility] [address], [place] [address]Eztnhlxmui [Mass/Vol]0.7 mg/dLNormal0.5-1.3FUpper Valley Medical CenterComment on above:Performed By: #### [id number] #### [facility] [address], [place] [address]Tvqmwkoy (S) [Mass/Vol]3.0 g/dLNormal1.4-4.0Avita Health SystemComment on above:Performed By: #### [id number] #### [facility] [address] [place] [address]Mvlwrci [Mass/Vol]89 mg/jMToyjyx77-226IfnmppAvita Health SystemComment on above:Performed By: #### [id number] #### [facility] [address], [place] [address]Zpvvbkcyv [Moles/Vol]4.1 mmol/LNormal3.5-5.3FUpper Valley Medical CenterComment on above:Performed By: #### [id number] #### [facility] [address], [place] [address]Ifictug [Mass/Vol]7.3 g/dLNormal6.0-7.8Av[facility] Health SystemComment on above:Performed By: #### [id number] #### [facility] [address] [place] [address]Hdrswx [Moles/Vol]138 mmol/PQvmmor688-106PflzphAvita Health SystemComment on above:Performed By: #### [id number] #### [facility] [address] [place] [address]Dqpf nitrogen [Mass/Vol]10 mg/dLNormal5-21Av[facility] Health SystemComment on above:Performed By: #### [id number] #### [facility] [address] [place] [address]Npwy nitrogen/Creatinine [Mass ratio]14 No LzlvsKshxgb38-69 [facility] Health SystemComment on above:Performed By: #### [id number] #### [facility] [address], [place] [address]AuiC5grs 48-47-7702CjZ7g (Bld) [Mass fraction]5.1 %Normal<=5.9 [facility] SystemComment on above:Performed By: #### [id number] #### [facility] [address], [place] [address]Pfzta Panelon 08-83-0942Tksphzzguwy [Mass/Vol]153 mg/dLNormal 120-200Avita Health SystemComment on above:Performed By: #### [id number] #### [facility] [address], [place] [address]Jepqmmokqyp in HDL [Mass/Vol]45 mg/dLInvalid Interpretation CodeAvita Health SystemComment on above:Result Comment: '>= 60 LOW RISK' '<= 40 HIGH RISK'Performed By: #### [id number] #### [facility] [address] [place], [place] [address]Mvycepeoobx in LDL [Mass/Vol]102 mg/dLNormal<=129Avita Health SystemComment on above:Performed By: #### [id number] #### [facility] [address], [place] [address]Jwbkqwgcnbe in VLDL [Mass/Vol]26 mg/dLNormal7-40Av[facility] Health SystemComment on above:Performed By: #### [id number] #### [facility] [address], [place] [address]Ipheqymoytnk [Mass/Vol]129 mg/dLNormal<=149Avita Health SystemComment on above:Performed By: #### [id number] #### [facility] [address], [place] [address]H5 & TSHon 31-15-1050AHF Qn2.00 m[IU]/LNormal0.34-5.60Av[facility] Health SystemComment on above:Performed By: #### [id number] #### [facility] [address], [place] [address]M4 [Mass/Vol]9.5 microgram/dLHigh4.6-9.1FUpper Valley Medical CenterComment on above:Performed By: #### [id number] #### [facility] [address], [place] [address]fCXGmi 01-57-6571rSMM303 mL/min/1.73 m2Ctfsel>=59Avita Health SystemComment on above:Performed By: #### [id number] #### [facility] [address], [place] [address]Qy Panel InformationOrdered By: Manjula Nevarez on 50-57-9386Ulmpv Strep (POC)[facility] North HospitalBhCG Quanton 26-54-6490Fwqn hCG Qnt <8Bwjcap3-2Wpzrim Holy Cross HospitalComment on above:Result Comment: 'F NON < 1 - 3' ' 0.2 - 1 WEEK = 5 TO 50' ' 1 - 2 WEEKS = 50 - 500' ' 2 - 3 WEEKS = 100 - 5000' ' 3 - 4 WEEKS = 500 - 46321' ' 4 - 5 WEEKS = 1000 - 74088' ' 5 - 6 WEEKS = 30300 - 446611' ' 6 - 8 WEEKS = 98219 - 457925' ' 8 - 12 WEEKS = 299[address] - 461487'Performed By: #### [id number] #### [facility] [address] [place] [place], [place] [address]Faglvpyxy Orderon 92-70-4560Mytjhhzlj Order [id number]#1.00TIFFNormalFisher Holy Cross HospitalUS ABD RIGHT UPPER QUADRANTon 04-03-7004YD ABD RIGHT UPPER QUADRANT* * *Final Report* * * DATE OF EXAM: Mar 12 2023 7:32AM U 1032 - US ABD RIGHT UPPER QUADRANT [...] hydronephrosis. Ascites: None. IMPRESSION: No acute findings. Cabinet Maker: DOC Transcribe Date/Time: Mar 13 2023 11:44A Dictated by : TANNER RAMSEY MD This examination was interpreted and the report reviewed and electronically signed by: TANNER RAMSEY MD on Mar 13 2023 11:49AM EST [id number] Eye Medical CenterURGICAL PATHOLOGY Ordered By: Ayan Donaldson on 46-53-8473Cbqn ReportSurgical Pathology Report Case: [id number] Authorizing Provider: Shelly Parsons DO Collected: 03/03/2023 10:24 AM Ordering Location: Ambulatory Surgery Received: 03/03/2023 10:41 PM Pathologist: Ayan Donadlson MD Specimens: A) - SMALL INTESTINE BIOPSY, r/o celiac B) - STOMACH BIOPSY, r/o h pylori C) - STOMACH (GASTRIC) POLYP BIOPSY, polyps [facility] Work Phone: Diagnosis Comment d1dqmOWxVHLawOZtXMFxD2ibniHhNRFnbOGeU4MdetzyCTbaAI6aJH2fuZkmkRDekLPtZHLpLuOgj9ti n919jYHnx8evBEUTeobf aXv5eEaiD18wd2Q1NfumC73keEYdAZN3DRJxQMRjiWQbPMJrBNM1UMFfmSKtO7svECUtBF5vakwwZAay LHqoXIXgkWI1MYPtaDKl H5MzXUQmLQarUZMakbk6QdKzZn8peDPvlMjmIIalCGInXFFgEJdkVJFwJrTvAzfbSl8kJe4pXCSadEBj HwQxyIDmWQJ4lI5oaGKa qzgmmsphuELrJNPvXYlkZF94fPBhYAEhLZ9rPRjqhHPomZwvAFvduAA0OHUlQZVmMOPtpcHgDWGcEvTD jYRiXNQezyJgavGoidsrJM3tVSNkLsAtkZZgoHAfoOAoz3OfqVSshNyhGP4ykF3meZRsfA== [facility] Work Phone: FINAL DIAGNOSIS m3oufXGrODAtlZSyCQKoJ7mwayQqKBYqcPDsK0SuodwgSAdcBB2iLO7mzAsdkSTfbCJkOEKbFfZsw7zf n138jVQpp0wvYFEFqgyf qAc9bUqyY20np3L5KjuhV10lpIRaFKY0DVTfMTDjdJFcRJVcZVZ0JQFmsGMxC9zgEMLxBK6pquseGBxh THbfOGAjwEP8DTUgrWAa E7UeGRQeGLyuCMWznpa8EgIhZx2pyYVpxIdhDPwcZZFaKNDnOHsaSBZsXqOlZS9fFTZwEXJbxL4rTXMb y4DfrEwbwKvmBJOmDKTq EXafVJGbm7PbXA93B46sRCO2iSGzCV6oFXDpOOusw5X3iYTcIAAzm2IrQBoaiPukGGDqrwfnGBEeSq1l E9NdvVLsiAfjUqeglYT2 CsvmxS2pZU3mW8AyVXHelGCpOJdoRgIuT31uxwOwb4JvC4ZrmDFbNnItbTMcd3Cxh4t3kVYkWZRyyOp9 NJNiFTU0tu9iKCUuzO59 nSMjBGRgBP5sFPRkTYEoxlPtHFIdtJLrYNZkUFEoAZyaOH26fcFuUyLiOYQ7nmhfNK12mC02yLRpkEny HSVcdWOgb1Oxs5j3vDAf wmHrpSNcxs6ffDeiSHGobp6vuUWdnZY3AqciVAQlzGZoVGSxQAE6k01dW7mhPLTwnAzxpjqmDarbiBQm EBD8JWthljQnFMDGaL5g wRIxO8chjmTiiN5egYYdAXAyknAcBWWumXDsATLnMVXfFLwmNJ14QN4zOIhei3DnpUNrb0f8fiTmEe30 qGBpQH48N52uZEN2iBOy CNZvvhFisDRaPDf2bZRufYngd4czSavhXAGiwYCpGHsWJTYvRB1tQi5pCMQqMMIucf5=[facility] Work Phone: Gross Description x3uulHRrILAqyCPsZCCcE1topaSgFMAvgIAuO8GhuwgjDBdoPL8wRC1coQfdmHWjrJEnGUPwUrPzy5sl e262uXMlz1nyPSOOqpvl oPs9xPryX39sk9F7DkofC38pwHHxJXG0RNIkSQHuvDJtPTPnBHC3HIEowNNtC6ajCVTrGJ8ywdkqZRru NQiyQXBjuOG8WECfvZGp S9CbXXOfAVfjUEMstkr4QtNnRc1rjBIvgKtbVQglMqhlnEona2NkqDGpFTikYZLhEEVcEBbcQSCyU2SB PKKsFUR0ZdCsBKTmAVSZ NXI5KZnyZSH3WFICNMYaOCnjPeJ8MVYfMIPjKZKEXAEhDhM1MYEzLNHxUSkcyOVtDWVqANQiHGBeIBko ezT9g5anKPXojBDnRTE5 ZTjjyDPkEABeTBQiIGmyKsXYVqHbHvR3Rtk6JtVgObFfSQa6PIcuY8GFAOGoFOG0JbLmXKK4RtZ2EQy0 KQBNQp8uPUBoQWA3Iup0 WdMxKYD7CgRtSKl9CRNuZSjgvtZvRGylJgehZBteZ03hpCGvVNbkhVSwqfbwkpLeGUJdHWJGYFgZHJdL FIKWOLhZZPXQDU8ET9sd gSHlUTFalqBiv6ViXZkuhSxfKUNvDtGguRxlkI5bWpZxANVWGGYtlAKyNHIgtpXbl7LqJRphfaEmsaFn qvMyoRdcX3Tjk1VmpBHd ULHya2ipIVOej0F0ZEKes7X1LGRrOWMzaEQxefnyYY22MIpoXM01MZrpSX7cYQNvPkVLm1SwjDn0IFV5 Jb2esNHwMTQewwYmydRy A0Syu9K6rTRoTLuwJQXjyKZzWTauHDVjCXQhcAUBq1LgWVwjZLHvI1HiW4EmycU7BHSujwjyRpvbbFed l4HmeGMmDKowQYYzSQIb HZspYVRyP7YTIQIxEYI8UhCrBDCgIAd4FEc7GQ1JZyDoEMNuVMUmBblwWBGmGBu3QNsxPP5QKJUwIiC0 FdC8USX6MBH5Mlf3UNqj xEQhWSulg8FoCjGzAPGiGBfgcuZ2HZLvtsQdi1FlTQKgCDYzA5meTmEwDLquqyOjXFKgJNRSD35ZW5ro QklPUFNZXHBhclxwYXJk RAJpRgCaAYGeM7xuUyTqYDUrPNqdSZPdKwIcNtIcZOw1DHOtoD1pVz5vjWIidN8gFJJaPP38tKZyeEfg ZDXfSNFcrbYqDwQ6RI9l QeSqd42fBKNhLhAwkDkoe3DtDXNhX4RzJ7X8yN6qOTWaDAGiBsP1MMCyQpO8JRQrExHcsH7mTR50WYdh pKWpcQPlxRB4WYZybN3q l17lRXJcc6MdqCHyTqCybUFgLQUiomZpp3XwXRqkrLueFVAnAdX2BVDimRHpXHR9XX2znUkvBUI3RYrt YSOeD2PdU4FyJUtwLYG6 VQMiQqKxKBWjSJ0AOeIbPKOtOoz1GxTjZoL8VKo6GGPSNcArViXmQhy1GiH6UrrtBAx9AUx2YGpBFbJz MCYxTWycSwf9OOG1KBi5 AZGwVBIiNjZnQVCrMQAxNYytcJYzHO5akSzeFSHiKTUtEFB8PEVhyHMHr6BwWUMxEaBpBlDRDaKWCH4A QUNIIChHQVNUUklDKSBQ Q6sHVFTYSX4NB9soxZHoUSMcxpEdz8YmCPbqfNwmCRZqGhEkuWkutQ2aHvQsMTTJYAMqaGVfCMPsuyYl x8GxZHkmltTwbuBftDxg BTVlCUDtbyIcUnH4CD2dYpBxv77eGPNyTvKayYetn9RbPDZhF7ElJ3E6rZ7gYCZeHIFqNlQ8QCPoVjT5 SMGtDnOsxV6kQG82MTsa kBBgmPWocIS2QTPehX9fx06kBULeu9QtzIRoKdvuNNBirJRjOYYhPFMsolMSts3ipuUeoJGhxY0owQwf bxYoAIOik6DbODHcEMTt O7knatNaJH4cAGDvgN3oXkbzXBGmWETByNArpIXvVWThJosuF2bpfhSuAR5kJXGUKMM4ZLZ3LPjgGFGc eBSvFOZrJbOqSHKcM5fu PXWrZRcLFQ8fcN8cRPUiLKVaHIFkAqWsYVuxHnZAXIs+l0yowJpte2BhxYFzSH27ZZLffUIpUUM8AU6f iVpsUSN1Cyrhbbppv Clinic Work Phone: Performing Lab y3mkhWTjXPYsrSOmXrFuMTGkMZIsi1stTHReuNNwJtHjHsVkHhKuXwdawQFmGRLnZuLbj3scj136kKSj d8btJYOiQfB2xBXkGTTv xOUiO596SWAsYKfuo9iui9BlVWLhiZLqv9W5IKKEbgbbsGu7rIobO20fo4Q5FxqcN5xxFKYxFUKnV7Do IS2tEGKcOfl4IOT4NIG1 HBIxIODdG6TbQS6jEAYumWIsDZh3d3myjOiuNAIvLSC5s8lyXKjiobSbJP2vrg4zmHi1p7whlwJiTSYg KBIntHYXLISxZ2KffCfb Vs4ioFc3xSsrFkxaHAB4Ymi2OB3wqi97mwl0oXcjTCGmglgmGoP7PPyzYDWekzsrEDd4OYdeXSCldHH3 ZXTedAWtB9VzZIWzBL5s wig0TYP9KCjaMTNgYvB5SOVztOSsMRYerQmcTBxhb920UGH3QrVfXI5pR8Zdr3B9lD7jxCKlANMuwZLt WhUeWXWtwv1dmQWnMQdk s8IpBLS6abS5gUJtuNUvMAOeZI56Zgqnd6KhSuvek3OdF72sbTJ0UYgms9gvGY6uXzX5fdCtEEdgp7fu aC0yYyT0NOxzPM8vVE0i BNKfvL1chgptARCnPlFlkxdwGNTsrDzghxFdCx8uqWrjSOX3GGfuG1kjeW8tBbV6DRuaF4iokK9qDNp1 RRnzlHL2BHJbeJ0dUW7t xehbq5ztDNrbEJhkIYCrpqN1tfG5AOOxcMMlD9EfgJ2iXHVjAC3ullfkp0soMGX3HZpyWPXzRBG5MqEi GFCol3Dhbft4VbAbn9Yk kLJyVMrpY42ee863IIOtgtNtR2lrtCCdrsddwAYxeannUPcwmcV5YONdFNQpNFnfBWJeCNVnZfRndHXg ZzEwMzNcaGljaFxmMVxk NhOxFYIyQWxfP8bwFdJjUjUjAiTLkQAimx5ctOewUPrhaJIckONsaMY4fN0fCFKwuyKvvf3hYROmhRRT pLV2TZtiwvDoX4gmvrnv SCAgsVI0uXO0GJgtl0LzlKDqCXYvOWFsKDBKe3UbfA7kRUSgODUByNP2EDwgsmBkVP8PKLX1DEPgEZRj ZLKYSJBzGDO8GXL3ZHl2 SLdklEShPYMkdqryBEElWJVuOEnxNTQnEGHmFvZvhHjwgV8pBxYuEiJlNbuwFN1wSNStR8qooWTfGPPe LLItU4zuTeEhfD5luXyq PJspLyIaKhBhUzbjnDAdlJZKEPCfttE4x8F8ZBaxkVFbvbhrHHpavrTaNJgyweflFOZtQDklY9cuAnDm XALkrImqPAkko5AwGFVcRUKfJjQcRIihOYS2b2Z5IX3rwioeZg4dBNJmTFLuC68lDTYEEpPmDESzto2= [facility] Work Phone: [facility] Work Phone: ANES POSTPROC EVALon [id number] POSTPROC EVALHNO ID: [id number] Author: Ralph Childs APRN.REGENCY MERIDIAN Service: ? Author Type: Nurse Risk Assessment Consultant Type: Anesthesia Postprocedure Evaluation Filed: 03/03/2023 10:32 [...] March 03, 2023 TIME: 10:31 AM CSN: [id number] Lady of [facility] Study observation Narrativeon [id number] [place] [facility] G[facility] Patient Name: Saroj Membreno Procedure Date: 03/03/2023 10:10 AM Date of : 2000 Admit Type: Outpatient Age: 23 Room: [place] [address] Gender: Female Note Status: Finalized Attending MD: [...] referring physician. Procedure Code(s): --- Professional --- 78576, Esophagogastroduodenosc (more content not included)...PROVATIONSt. [facility] CampusRadiology Study observation (narrative)[facility] PHYSICALon 23-57-2665UDVOERT PHYSICALHNO ID: [id number] Author: Shelly Parsons DO Service: Gastroenterology Author [...] non-tender, no masses or organomegaly. [place] [facility] [place] Comments: None [facility] nehal [id number] PROGHNO ID: [id number] Author: Meghann Kwan RN Service: Nursing Author [...] By: Meghann Escalante RN In Department: AMBULATORY SURGERYSCCI Hospital [facility] ID: [id number] Author: Bia Price RN Service: ? Author [...] By: Bia Price RN In Department: AMBULATORY SURGERYNoCleveland Clinic Lutheran HospitalSURGICAL PATHOLOGYon [id number] REPORTNoCincinnati Children's [facility] on above:Order Comment: Specimen Type: TISSUE SPECIMENOrdering Facility: [facility] Address: [address] [place] [address] Comment: Surgical Pathology Report Case: [id number] Authorizing Provider: Shelly Parsons DO Collected: 03/03/2023 10:24 AM Ordering Location: Ambulatory Surgery Received: 03/03/2023 10:41 PM Pathologist: Ayan Donaldson MD Specimens: A) - SMALL INTESTINE BIOPSY, r/o celiac B) - STOMACH BIOPSY, r/o h pylori C) - STOMACH (GASTRIC) POLYP BIOPSY, polypsPerformed By: #### S ####[facility] LABORATORYIA [id number] [place] [address] [place] OF AMERICADIAGNOSIS COMMENTB, C. No Helicobacter pylori organisms are identified. No intestinal metaplasia is seen. There is no evidence of dysplasia or malignancy.[facility] on above:Order Comment: Specimen Type: TISSUE SPECIMENOrdering Facility: [facility] Address: [address] [place], [place] [address]Performed By: #### S ####[facility] LABORATORYIA [id number] [address] STATES OF AMERICAFINAL DIAGNOSISNoCincinnati Children's [facility] on above:Order Comment: Specimen Type: TISSUE SPECIMENOrdering Facility: [facility] Address: [address] [place] [address] Comment: A. Duodenum, biopsy: - Small bowel mucosa with no diagnostic abnormality. B. Stomach, biopsy: - Superficial fragment of gastric mucosa with reactive gastropathy-type changes. - Separate fragments of gastric oxyntic-type mucosa with no diagnostic abnormality. C. Stomach, polyps, biopsies: - Fundic gland polyp. - Separate fragment of gastric oxyntic-type mucosa with foveolar hyperplasia. JEL 03/05/2023 Performed By: #### S ####[facility] LABORATORYCLIA [id number] [place] [id number] [facility] on above:Order Comment: Specimen Type: TISSUE SPECIMENOrdering Facility: [facility] Address: [address] [place], [place] [address]Result Comment: Diagnostic interpretation performed at [facility], [address] [place] [address] CLIA# [id number] Group Teacher: Guilherme Gonzalez M.D.Performed By: #### S ####[facility] LABORATORYCLIA [id number] [place] [id number] [facility] on above:Order Comment: Specimen Type: TISSUE SPECIMENOrdering Facility: [facility] Address: [address] [place] [address] Comment: A. SMALL INTESTINE BIOPSY Received in formalin is one [...] in one cassette. Gross examination performed at [facility], [address] [id number] March 04, 2023 1:32 AMPerformed By: #### S ####[facility] LABORATORYCLIA [id number] [place] [id number] [facility] GI endoscopyon [id number] GI endoscopyNoExcela Health Gastroenterology Gastrointestinal Endoscopy Patient Name: Saroj Membreno Procedure Date: 03/03/2023 10:10 AM Date of : 2000 Admit Type: Outpatient Age: 23 Room: [facility]O [place] PROC RM 3 Gender: Female Note Status: Finalized Attending [...] referring physician. Procedure Code(s): --- Professional --- 26336, Esophagogastroduodenoscopy, flexible, transoral; with biopsy, single or multiple Diagnosis Code(s): --- Professional --- K22.89, Other specified disease of esophagus K31.7, Polyp of stomach and duodenum Z01.818, Encounter for other preprocedural examination E66.01, Morbid (severe) obesity due to excess calories CPT copyright 2020 [employer]. All rights reserved. The codes documented in this report are preliminary and upon vice president consulting services review may be revised to meet current compliance requirements. Scope In: 10:21:13 AM Scope Out: 10:25:25 AM DO Shelly Patel DO 03/03/2023 10:30:44 AM This report has been signed electronically by Shelly Parsons DO Number of Addenda: 0 Note Initiated On: 03/03/2023 10:10 AM Estimated Blood Loss: Estimated blood loss was minimal.NormalJ.W. Ruby [facility] PRE-OPon [id number] PRE-OPHNO ID: [id number] Author: Ralph Childs APRN.SOFTWARE SYSTEMS ARCHITECT Service: ? Author Type: Nurse Risk Assessment Consultant Type: Anesthesia Preprocedure Evaluation Filed: 03/03/2023 10:13 [...] results: No results found for this basename: HCT,HEMATOCRIT,K,POTASSIUM Relevant Problems PULMONARY (+) Asthma Psychiatry (+) [...] 48 hours of Surgery/Procedure. SIGNATURE: Constance Schumacher APRN.SOFTWARE SYSTEMS ARCHITECT PATIENT NAME: Saroj Membreno DATE: February 16, 2023 TIME: 2:56 PM CSN: [id number] State [facility] System [facility]-2023 CNOVOffice Visit (CARDAV) SAROJ MEMBRENO ([id number]) 2 F Date Time Provider Department 02/11/23 8:30 AM NURSE CARD COUNTS INCLUDE 234 BEDS AT THE [facility] During your visit today, we recorded the following information about you: Roya Lawler RN 02/11/2023 8:34 AM Signed Ekg completed. Pt with no voiced complaints. Provider cc'd of completion. Referring Provider: ALLIE LARSON [[id number]] Allergies As of Date: 02/11/2023 (No Known Allergies) Date Reviewed: 02/04/2023 Reviewed by: Sasha Xie RD - Fully Assessed Reason for Visit: Cardiology Follow Up [1732] Visit Diagnoses:Pre-op evaluation [Z01.818] Class 3 severe obesity with serious comorbidity and body mass index (BMI) of 40.0 to 44.9 in adult, unspecified obesity type (HCC) [E66.01, Z68.41] Order(s):ECG COMPLETE [ECG01] Order #: [id number]. #:[id number] Prescriptions as of 02/11/2023 - ARIPiprazole (ABILIFY) [...] completion. Encounter Status:Closed by ROYA LAWLER on 02/11/23NoCleveland Clinic Lutheran HospitalEC COMPLETEon [id number] COMPLETEVentricular Rate : 59 BPM Atrial Rate : 59 BPM P-R Interval : 166 ms QRS Duration : 74 ms Q-T Interval : 408 ms QTC Calculation(Bazett) : 403 ms Calculated P Lindsay : 35 degrees Calculated R Lindsay : 66 degrees Calculated T Lindsay : 39 degrees SINUS BRADYCARDIA WITH SINUS ARRHYTHMIA BORDERLINE ECG Confirmed by STALIN HARRIS MD ([id number]) on 02/12/2023 9:13:18 PM NAME : SAROJ MEMBRENO PID : [id number] : 2000 Gender : Female Race : ORD : [id number] Procedure Date : Feb 11 2023 08:29:59 Edit Date : Feb 12 2023 21:13:23 Diagnosis: SINUS BRADYCARDIA WITH SINUS ARRHYTHMIA BORDERLINE ECG Confirmed by STALIN HARRIS MD ([id number]) on 02/12/2023 9:13:18 PM Test Reason : Location : 192 : AVCRD Overread By : STALIN HARRIS MD Edited By : STALIN HARRIS MD Referred By : ALLIE LARSON Acquired by : ,[facility]PNon [id number] (WIQ) SAROJ MEMBRENO ([id number]) 2 F Date Time Provider Department 02/10/23 CECE OBANDO During your visit today, we recorded the following information about you: Cece Obando, [facility] [place] 02/10/2023 10:12 AM Signed Smoking Cessation Navigation Outcome of contact: Spoke with Intervention Chosen By Patient: Other Comments: Patient quit last week. 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 IMPRESSION: No acute radiographic abnormality. Cabinet Maker: DOC Transcribe Date/Time: Jan 30 2023 12:41P Dictated by : ROD BELL MD This examination was interpreted and the report reviewed and electronically signed by: ROD BELL MD on Jan 30 2023 12:43PM EST [id number] Municipal HospitalCNPNon [id number] Telephone (WIQ) SAROJ MEMBRENO ([id number]) 2 F Date Time Provider Department 01/21/23 CECE OBANDO WIIsidoro During your visit today, we recorded the following information about you: Cece Obando, [facility] [place] 01/21/2023 11:57 AM Signed Smoking Cessation Navigation Outcome of contact: Left Message Comments: A voicemail has been left for this patient regarding Tobacco Cessation support options. If this patient has any further questions they can email us at [email or web address] or call us at [phone]. ealth Folder Seamer/Smoking Cessation Navigator: Cece YoungUNC Health Rex Allergies As of Date: 01/21/2023 (Not on File) Date Reviewed: 01/19/2023 Reviewed by: Allie Larson APRN.DYE RANGE OPERATOR - Fully Assessed Reason for Visit: [...] 01/19/2023 Encounter Status:Closed by CECE OBANDO on 01/21/23[facility] Hospitaladrianna 33-16-5760NQVEXboazv Visit (GENBMI) SAROJ MEMBRENO ([id number]) 2 F Date Time Provider Department 01/19/23 9:00 AM ALLIE LARSON During your visit today, we recorded the following information about you: Pulse Blood pressure Weight Height 84/minute 111/53 114.9 kg 1.622 m Last Period 12/29/22 Allie Larson APRN.[facility] 01/19/2023 10:06 AM Signed BMI Obesity [...] Characterization of diet: Unstructured and skip meals. 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 Mary'S Medical [facility] Campus ClevelandLTURE ABSCESSon 32-92-1484RKSMIZZ ABSCESSCulture Observations: NO GROWTH OF ANAEROBES AT 72 HOURS. [...] Linezolid 2 S F Vancomycin 1 S FNormalThe [facility] Clinic [facility] Pointe HospitalComment on above:Performed By: #### ABCESCX #### [facility] [address] [place] [address] Dr. Magali PhillipsAMYLASEon 11-32-2786Vslgxwo [Catalytic activity/Vol]33 U/LNormal 25-115The [place] [facility] Po[facility] HospitalComment on above:Performed By: #### IRA, CMP, LIPA #### [facility] [address] [place] [address] Dr. Magali Vela AUTO DIFFon 31-69-1841UPBT #0.0 103/ulNormal0.0-0.1The [place] [facility] Po[facility] HospitalComment on above:Performed By: #### CBC #### [facility] [address] [place] [address] Dr. Magali Jacksonphils/100 WBC (Bld)0.2 %Normal0.2-2.0[facility] Comment on above:Performed By: #### CBC #### [facility] [address] [place] [address] Dr. Yilan ChangEO #0.0 103/ulNormal0.0-0.7The [place] [facility] Po[facility] HospitalComment on above: Performed By: #### CBC #### [facility] [address] [place] [address] Dr. Magali Tomasosinophils/100 WBC (Bld)0.3 %Critically low0.9-7.0The [place] [facility] Po[facility] HospitalComment on above:Performed By: #### CBC #### [facility] [address] [place] [address] Dr. Magali Tomasrythrocyte distribution width (RBC) [Ratio]12.4 %Jfmour84.0-15.0 The [place] [facility] Po[facility] HospitalComment on above:Performed By: #### CBC #### [facility] [address] [place] [address] Dr. Magali PhillipsHematocrit (Bld) [Volume fraction]43.8 %Yqnpxm07.0-48.0The [place] [facility] HospitalComment on above:Performed By: #### CBC #### [facility] [address] [place] [address] Dr. Magali PhillipsHemoglobin (Bld) [Mass/Vol]14.9 g/vSZfdszv32.0-16.0The [place] [facility] HospitalComment on above:Performed By: #### CBC #### [facility] [address] [place] [address] Dr. Magali Florez #0.03 10e3/ulNormal0.00-0.03The [place] [facility] HospitalComment on above:Performed By: #### CBC #### [facility] [address] [place] [address] Dr. Magali Florez %0.2 %Normal0.0-0.5The [facility] HospitalComment on above: Performed By: #### CBC #### [facility] [address] [place] [address] Dr. Magali PateH #2.6 103/ulNormal1.2-3.8The [place] [facility] HospitalComment on above:Performed By: #### CBC #### [facility] [address] [place] [address] Dr. Magali Esparzamphocytes/100 WBC (Bld)21.0 %Zfrzhc12.5-60.0The [place] [facility] HospitalComment on above:Performed By: #### CBC #### [facility] [address] [place] [address] Dr. Magali Brooks DIFF REQNONormalThe [facility] HospitalComment on above: Performed By: #### CBC #### [facility] [address] [place] [address] Dr. Magali Valentin (RBC) [Entitic mass]30.2 fsFevkgl63.7-34.0The [facility] HospitalComment on above:Performed By: #### CBC #### [facility] [address] [place] [address] Dr. Magali Valentin (RBC) [Mass/Vol]34.0 g/wQGqjfyi46.9-35.2The [facility] HospitalComment on above:Performed By: #### CBC #### [facility] [address] [place] [address] Dr. Magali Salcedo (RBC) [Entitic vol]88.8 mQTbdmgl81.0-99.0The [facility] HospitalComment on above:Performed By: #### CBC #### [facility] [address] [place] [address] Dr. Magali Danielson #1.0 103/ulCritically high0.3-0.8ThLutheran Hospital Comment on above:Performed By: #### CBC #### [facility] [address] [place] [address] Dr. Magali Huffmanocytes/100 WBC (Bld)8.0 %Normal1.7-12.0[facility] Comment on above:Performed By: #### CBC #### [facility] [address] [place] [address] Dr. Magali Buchanan #8.6 103/ulCritically high1.4-6.5The [facility] Comment on above:Performed By: #### CBC #### [facility] [address] [place], [place] [address] Dr. Magali Livingstonutrophils/100 WBC (Bld)70.3 %Hnamdu26.0-75.0The [facility] HospitalComment on above:Performed By: #### CBC #### [facility] [address] [place] [address] Dr. Magali Masterslet mean volume (Bld) [Entitic vol]9.6 fLNormal9.5-13.5The [facility] HospitalComment on above:Performed By: #### CBC #### [facility] [address] [place] [address] Dr. Magali PhillipsPLT279 103/vkBhmbll306-579Nhr [facility] HospitalComforest health medical center on above: Performed By: #### CBC #### [facility] [address] [place] [address] Dr. Magali PhillipsRBC4.93 106/ulNormal4.20-5.40The [facility] HospitalComment on above:Performed By: #### CBC #### [facility] [address] [place] [address] Dr. Magali PhillipsWBC12.2 103/ulCritically high4.0-11.0The [facility] HospitalComment on above:Performed By: #### CBC #### [facility] [address] [place] [address] Dr. Magali PhillipsCULTFERNANDEZ URINEon 63-57-2687DUFITQY URINECulture Observations: MODERATE GROWTH OF MIXED GENITAL DEE. NO POTENTIAL PATHOGENS SEEN.NormalThe [facility] HospitalComment on above:Performed By: #### URCX #### [facility] [address] [place] [address] Dr. Magali Son URINE PROFILEon 40-98-9728Nwfvjnsla Ql (U)NegativeNormal NEGATIVEThe [facility] HospitalComforest health medical center on above:Performed By: #### LINCOLN UMICRO #### [facility] [address] [place] [address] Dr. Magali PhillipsClarity (U)CLEARNormalCLEARThe [facility] HospitalComment on above: Performed By: #### ERUR UMICRO #### [facility] [address] [address] [address] Magali Abebe (U)LT. YELLOWNormalYELLOWSamaritan North Health CenterComment on above:Performed By: #### LINCOLN UMICRO #### [facility] [address] [address] [address] Magali Ramos micrscopic examination will be performed if indicated. NormalThe [facility] HospitalComment on above:Performed By: #### LINCOLN UMICRO #### [facility] [address] [address] [address] Magali PhillipsGlucose Ql (U)NegativeNormalNEGATIVESamaritan North Health CenterComment on above:Performed By: #### LINCOLN UMICRO #### [facility] [address] [address] [address] Magali PhillipsHemoglobin Ql (U)MODERATEAbnormalNEGATIVEAcmc Healthcare System Glenbeigh on above:Performed By: #### LINCOLN UMFRANSISCORO #### [facility] [address] [address] [address] Magali PhillipsKetones Ql (U)NegativeNormalNEGATIVESamaritan North Health CenterComment on above:Performed By: #### LINCOLN UMFRANSISCORO #### [facility] [address] [address] [address] Magali PhillipsLEUKOCYTESMODERATEAbnormalNEGATIVESamaritan North Health CenterComment on above:Performed By: #### MEGA STARKRO #### [facility] [address] [address] [address] Magali PhillipsNitrite Ql (U)NegativeNormalNEGATIVESamaritan North Health CenterComment on above:Performed By: #### LINCOLN UMICRO #### [facility] [address] [address] [address] Magali PhillipspH (U)5.5 [pH]Normal5-9[facility] CenterComment on above: Performed By: #### MEGA STARKRO #### [facility] [address] [address] [address] Magali PhillipsSPEC GRAVITY1.311Zmjpoh7.005-<=1.025The [facility] HospitalComment on above:Performed By: #### SOCO STARK #### [facility] [address] [place] [address] Dr. Magali Lee PROTEINNegativeNormalNEGATIVE/ TRACEThe [facility] Comment on above:Performed By: #### SOCO STARK #### [facility] [address] [place] [address] Dr. Magali Maddox MICRO INDINDICATEDNormalThe [facility] HospitalComment on above: Performed By: #### SOCO STARK #### [facility] [address] [place] [address] Dr. Magali Brownbilinogen Qn (U)0.2 {Nickie'U}/dLNormal0.2 - 1.0The [facility] HospitalComment on above:Performed By: #### SOCO STARK #### [facility] [address] [place] [address] Dr. Magali PhillipsLIPASEon 31-56-0959Cnriyw [Catalytic activity/Vol]62.0 U/L Critically low73.0-393.0The [facility] HospitalComment on above:Performed By: #### IRA, CMP, LIPA #### [facility] [address] [place] [address] Dr. Magali Hoover BLD IMMUNO SCREENon 77-94-7686UXTIOY BLOODNegativeNormal NEGATIVEThe [facility] HospitalComment on above:Performed By: #### OBSCRN #### [facility] [address] [place] [address] Dr. Magali PhillipsPROF 14(COMP METB)on 22-30-5623Ndhweqm [Mass/Vol]4.0 g/dLNormal 3.4-5.0The [facility] HospitalComment on above:Performed By: #### IRA, CMP, LIPA #### [facility] [address] [place] [address] Dr. Magali PhillipsAlbumin/Globulin [Mass ratio]1.0 {ratio}NormalThe [facility] HospitalComment on above:Performed By: #### IRA, CMP, LIPA #### [facility] [address] [place] [address] Dr. Magali Mcdowell [Catalytic activity/Vol]117 U/LCritically loyv21-048Rch [facility] HospitalComment on above:Performed By: #### IRA, CMP, LIPA #### [facility] [address] [place] [address] Dr. Magali Valente [Catalytic activity/Vol]24 U/FTovbuv09-80Rbz [facility] HospitalComment on above:Performed By: #### IRA, CMP, LIPA #### [facility] [address] [place] [address] Dr. Magali Chunon gap [Moles/Vol]12.5 mmol/LNormalThe [facility] Comment on above:Performed By: #### IRA, CMP, LIPA #### [facility] [address] [place] [address] Dr. Magali Feldman [Catalytic activity/Vol]17 U/WDwxawt62-55Juu [facility] HospitalComment on above:Performed By: #### IRA, CMP, LIPA #### [facility] [address] [place] [address] Dr. Magali PhillipsBilirubin [Mass/Vol]1.0 mg/dLNormal0.2-1.0[facility] Comment on above:Performed By: #### IRA, CMP, LIPA #### [facility] [address] [place] [address] Dr. Magali PhillipsCalcium [Mass/Vol]8.8 mg/dLNormal8.5-10.1[facility] Comment on above:Performed By: #### IRA, CMP, LIPA #### [facility] [address] [place] [address] Dr. Magali PhillipsChloride [Moles/Vol]106 mmol/ETbgfak78-125Zpk [facility] Comment on above:Performed By: #### IRA, CMP, LIPA #### [facility] [address] [address] [address] Magali PhillipsCO2 [Moles/Vol]24.2 mmol/KFexsuf22.0-32.0The [facility] Comment on above:Performed By: #### IRA, CMP, LIPA #### [facility] [address] [address] [address] Magali PhillipsCreatinine [Mass/Vol]0.71 mg/dLNormal0.55-1.02The [facility] HospitalComment on above:Performed By: #### IRA, CMP, LIPA #### [facility] [address] [address] [address] Magali TomasGFR-AF FAROESE>60Normal>=60The [facility] HospitalComment on above:Performed By: #### IRA, CMP, LIPA #### [facility] [address] [place] [address] Dr. Magali TomasGFR-NON AF FAROESE>60Normal>=60The [facility] HospitalComment on above:Performed By: #### IRA, CMP, LIPA #### [facility] [address] [address] [address] Magali PhillipsGlobulin (S) [Mass/Vol]4.0 g/dLNormalThe [facility] HospitalComment on above:Performed By: #### IRA, CMP, LIPA #### [facility] [address] [place] [address] Dr. Magali PhillipsGlucose [Mass/Vol]91 mg/rVNkhqyz56-068Hoq [facility] Comment on above:Performed By: #### IRA, CMP, LIPA #### [facility] [address] [place] [address] Dr. Magali PhillipsPotassium [Moles/Vol]3.7 mmol/LNormal3.5-5.1The [facility] Comment on above:Performed By: #### IRA, CMP, LIPA #### [facility] [address] [place] [address] Dr. Magali PhillipsProtein [Mass/Vol]8.0 g/dLNormal6.4-8.2The [facility] Comment on above:Performed By: #### IRA, CMP, LIPA #### [facility] [address] [address] [address] Magali Maurerum [Moles/Vol]139 mmol/HBemsdu059-988Tzl [facility] Comment on above:Performed By: #### IRA, CMP, LIPA #### [facility] [address] [address] [address] Magali Devlin nitrogen [Mass/Vol]8.0 mg/dLNormal7.0-18.0The [facility] HospitalComment on above:Performed By: #### IRA, CMP, LIPA #### [facility] [address] [place] [address] Dr. Magali Devlin nitrogen/Creatinine [Mass ratio]11.3 mg/mgNoUC HealthComment on above:Performed By: #### IRA, CMP, LIPA #### [facility] [address] [place] [address] Dr. Magali Diaz MICROSCOPIC ONLYon 33-19-7335CESHQRTUTGMBMAmzrzoduNLZX SEEN The [facility] HospitalComment on above:Performed By: #### MEGA STARKRO #### [facility] [address] [place] [address] Dr. Magali Pereira identified Cx Nom (U)INDICATEDNoUC HealthComment on above:Performed By: #### BRIAN STARKICRO #### [facility] [address] [place] [address] Dr. Magali HarrisENAbnormalNONE SEENSamaritan North Health CenterComment on above: Performed By: #### LINCOLN UMICRO #### [facility] [address] [place] [address] Dr. Magali Valera LM Nom (Urine sed)NONE SEENNormalNONE SEENSamaritan North Health CenterComforest health medical center on above:Performed By: #### LINCOLN UMICRO #### [facility] [address] [place] [address] Dr. Magali Tomaspithelial cells LM Ql (Urine sed)FEWAbnormalNONE SEEN /RAREThe [facility] HospitalComment on above:Performed By: #### ERUR, UMICRO #### [facility] [address] [place] [address] Dr. Magali MADRIGALRARENHocking Valley Community HospitalComforest health medical center on above: Performed By: #### ERUR, UMICRO #### [facility] [address] [address] [address] Magali Murrieta SEENNormalNONE SEENSamaritan North Health CenterComforest health medical center on above:Performed By: #### ERUR, UMICRO #### [facility] [address] [place] [address] Dr. Magali PhillipsUnconHAV1-04Pfvslvdk6-4UhiOhioHealth on above:Performed By: #### ERUR, UMICRO #### [facility] [address] [address] [address] Magali DanielsAbnormalNONMulu SEENSamaritan North Health CenterComforest health medical center on above: Performed By: #### ERUR, UMICRO #### [facility] [address] [place] [address] Dr. Magali PhillipsWBC5-10AbnormalNONE [facility] on above: Performed By: #### ERUR, UMICRO #### [facility] [address] [place] [address] Dr. Magali PhillipsUrinalysis - AUTOMATEDon 81-33-0950Qbexfxnqvx (U)[employer] Other Bilirubin Ql (U)[employer] Other Color (U)yellowTransMedia Communications SARL Other Glucose Ql (U)[employer] Other Hemoglobin Ql (U)[employer] Other Ketones Ql (U)[employer] Other Leukocyte esterase Test strip Ql (U)traceNoBridgeLux Other Nitrite Ql (U)NegativeNoBridgeLux Other pH (U)6.5 [pH][employer]L Other Protein Ql (U)NegativeTransMedia Communications SARL Other Specific gravity (U) [Rel density]1.025[facility] [employer]Bak Other Urobilinogen (U) [Mass/Vol]1.0 mg/dLRipl.io, Inc. TorqBak Other Urinalysis - AUTOMATEDRipl.io, Inc. [employer] Other Urine Cultureon 44-14-7772Ejypwaot identified Cx Nom (U)[employer] SARL Other Automated erythrocytes count in urine sediment (number/area)Ordered By: Michelle Ortizimjohann on 17-10-1360JZO Auto (Urine sed) [#/Area]3-4 [HPF]0-4FParkwood HospitalAutomated leukocytes count in urine sediment (number/area)Ordered By: Michelle Bullimore on 54-64-1952TBB Auto (Urine sed) [#/Area]5-9 [HPF]0-4FParkwood HospitalBilirubin Test strip Ql (U)Ordered By: Michelle Bullimore on 84-08-9303Ecmpykvrs Ql (U) NegativeNegativeBethesda North HospitalColor Auto (U)Ordered By: Michelle Bullimore on 55-83-7912Dzvfi (U)YellowYellowBethesda North HospitalHCG ( test) IA.rapid Ql (U)Ordered By: Michelle Bullimore on 16-46-8119XDA ( test) Ql (U)NegativeBethesda North Hospital Ketones Auto test strip (U) [Mass/Vol]Ordered By: Michelle Ortizimore on 07-04-2022 Ketones (U) [Mass/Vol]NegativeNegativeBethesda North Hospital Laboratory - UrinalysisOrdered By: Michelle Arthur on 05-93-7315Omxspsy casts LM Ql (Urine sed)0-8 [LPF]0-8Bethesda North HospitalNitrite Test strip Ql (U)Ordered By: Michelle Arthur on 48-64-8197Wvltgza Ql (U)NegativeNegative [facility] North HospitalProtein Auto test strip (U) [Mass/Vol]Ordered By: Michelel Arthur on 72-35-7044Ozdsqvs (U) [Mass/Vol]NegativeNegative [facility] Hospitalpecific gravity Auto test strip (U) [Rel density]Ordered By: Michelle Arthur on 36-69-3687Nnlmdruz gravity (U) [Rel density]1.0161.001-1.030[facility] Hospitalquamous epithelial cells detection in urine sediment by light microscopyOrdered By: Michelle Arthur on 38-41-6799Nrekgptztn cells.squamous LM Ql (Urine sed)1-2 [HPF]0-2 [facility] HospitalUrine bacteria detection by automated method Ordered By: Michelle Arthur on 14-36-0687Tfxmjyce Auto Ql (U)None seenNone Seen [facility] HospitalUrine clarity by refractometry automatedOrdered By: Michelle Arthur on 43-75-7096Qceobsp Refractometry automated (U)ClearClear [facility] HospitalUrine culture routineOrdered By: Michelle Arthru on 02-50-8437Jcuxtwyh identified Cx Nom (U)2 DaysBethesda North HospitalUrine glucose measurement by automated test strip (mass/volume) Ordered By: Michelle Arthur on 66-75-4383Gdtmjpx Auto test strip (U) [Mass/Vol] Normal mg/dLNormalBethesda North HospitalUrine hemoglobin detection by automated test stripOrdered By: Michelle Arthur on 59-39-1923Sqzfgsemmg Auto test strip Ql (U)NegativeNegativeBethesda North HospitalUrine leukocyte esterase detection by automated test stripOrdered By: Michelle Arthur on 02-63-5741Dopglirqc esterase Auto test strip Ql (U)2+NegativeBethesda North HospitalUrobilinogen Auto test strip (U) [Mass/Vol]Ordered By: Michelle Arthur on 52-23-0085Nujrxgfcvmeo (U) [Mass/Vol]Normal mg/dLNormal [facility] HospitalpH Auto test strip (U)Ordered By: Michelle Mishrajohann on 16-41-3964qG (U)7.0 [pH]5.0-9.0[facility] COVID Quick Testingon 30-24-5758CxillnOrusjqgdBjzif [employer] Other Vital Signs Date TimeVital SignValuePerforming YhzybzgzoLlfqpwpa64-58-9201 10:04-0400Body mass index (BMI) [Ratio]52.66 kg/b5Umvyd Spotzer Work Phone: [phone] [place], [place] [address]Aicieptdrh35-83-3223 10:04-0400Body lohteh697.83 kgCorey Spotzer Work Phone: [phone] [place], [place] [address]Tblarqeyio16-31-0775 10:04-0400Diastolic blood lbqxxuwn10 mm[Hg]Rodrigo Thomas [employer] Work Phone: [phone] [place], [place] [address]Lptzwhknpz79-02-3318 10:04-0400Systolic blood jabqzqwa157 mm[Hg]RodrigoTriReme Medical Work Phone: [phone] [place], [place] [address]Fdyyylbngc49-35-2307 14:48-0400Body mass index (BMI) [Ratio]52.58 kg/m2Amy Camila ELMORE Work Phone: [facility] CenterMfmsvwkzof26-85-0544 14:48-0400Body ahbjrk964.63 kgIra ELMORE Work Phone: [phone] [place] [address]-18-2025 14:48-0400Diastolic blood eoyynjvv72 mm[Hg]Ira ELMORE Work Phone: [phone] CenterQvbmmaumsl27-42-9923 14:48-0400Systolic blood ocbszrxw070 mm[Hg]Ira ELMORE Work Phone: [phone]-Critical access hospital1[facility] CenterXwyaqybdgi51-95-6772 10:25-0400Body mass index (BMI) [Ratio]52.66 kg/m2Ira ELMORE Work Phone: [phone] [place], [place] [address] 10:25-0400Body iuejbv953.83 kgIra ELMORE Work Phone: [facility] CenterExtizfyakg86-52-3346 10:25-0400Diastolic blood cnomnbyw75 mm[Hg]Ira ELMORE Work Phone: [facility] CenterLgwsfcsbjz79-60-8167 10:25-0400Systolic blood pssyzfky843 mm[Hg]Ira ELMORE Work Phone: [facility] CenterHibbfyybpb44-39-5035 22:42-0400Body cyeehp441.48 cmBet[facility] Hospital09-15-2025 22:42-0400Body lstphpeflxj30.3 [degF][facility]09-15-2025 22:42-0400Body zonlcv378.7 kg [facility]09-15-2025 22:42-0400Diastolic blood mm[Hg][facility]09-15-2025 22:42-0400Heart rate81 /min [facility]09-15-2025 22:42-0400Respiratory rate22 /min [facility]09-15-2025 22:42-5459LlG0% (BldA) [Mass fraction]98 %[facility]09-15-2025 22:42-0400Systolic blood pcyguiks791 mm[Hg][facility]08-28-2025 09:01-0400 Body mass index (BMI) [Ratio]52.97 kg/c9Qrioi Thmoas DO Work Phone: [phone] CenterOyoqildbdk33-00-4936 09:01-0400Body .63 kgCorey Thomas DO Work Phone: [facility] CenterVvhuyxssrs40-97-3532 09:01-0400Diastolic blood fkjwtuyj95 mm[Hg]Rodrigo Thomas DO Work Phone: [facility] CenterDxtwnlygyt06-73-1166 09:01-0400Systolic blood mm[Hg]Rodrigo Thomas DO Work Phone: [facility] CenterJquacdwuhu80-10-1264 09:37-0400Body mass index (BMI) [Ratio]53.85 kg/z8Aadtnqp Visci DO Work Phone: [facility] CenterUmpeutbkve02-28-5825 09:37-0400Body rqbeen176.89 kgWesley Visci DO Work Phone: [facility] CenterAddbwcmkdx32-33-2217 09:37-0400Diastolic blood mbflkryz74 mm[Hg]Wesley Visci DO Work Phone: [facility] CenterEuxjozwvpx73-85-0926 09:37-0400Systolic blood wzqdotqb829 mm[Hg]Wesley Visci DO Work Phone: [facility] CenterCkjoblkzde06-86-9132 10:130400Body .48 cmBet[facility] Hospital06-24-2025 10:13-0400Body mass index (BMI) [Ratio]54.8 kg/n9WnqceqrxjBethesda North Hospital06-24-2025 10:130400Body prxupmotysz09.4 [degF][facility]06-24-2025 10:130400Body vfgidi915.07 kgBet[facility] Hospital06-24-2025 10:130400Diastolic blood mzgxiwwk78 mm[Hg][facility]06-24-2025 10:13-0400 Heart rate76 /[facility]06-24-2025 10:136680VrC4% (BldA) [Mass fraction]98 %[facility]06-24-2025 10:13-0400 Systolic blood qtuvdoij330 mm[Hg][facility]06-18-2025 10:43-0400Body twyulyngzav70 [degF][facility]06-18-2025 10:43-0400Diastolic blood qeszfpba23 mm[Hg][facility] 11-09-2024 10:43-0400Heart rate76 /[facility] 11-09-2024 10:43-0400Respiratory rate18 /[facility] 11-09-2024 10:434521MpL6% (BldA) [Mass fraction]98 %[facility]06-18-2025 10:43-0400Systolic blood yehjapwk59 mm[Hg][facility]06-16-2025 11:53-0400Body mass index (BMI) [Ratio]53.32 kg/m2Ira Camila ELMORE Work Phone: [facility] CenterWddccoaqen01-67-7403 11:53-0400Body .53 kgIra Camila ELMORE Work Phone: [facility] CenterXkpxbvfjkn42-00-8301 11:53-0400Diastolic blood uaatnttt31 mm[Hg]Ira ELMORE Work Phone: [facility] CenterLxlyekrkxl37-97-0343 11:53-0400Systolic blood aphuqkvr691 mm[Hg]Ira ELMORE Work Phone: [facility] CenterPzlzfrolwp14-75-9714 09:22-0400Body .48 cmBet[facility] Hospital09-10-2024 09:22-0400Body mass index (BMI) [Ratio]49.6 kg/t3ZoxoykhfpBethesda North Hospital09-10-2024 09:22-0400Body kmfmjmyucib98.1 [degF][facility]09-10-2024 09:22-0400Body iactsf427.09 kgBet[facility] Hospital09-10-2024 09:22-0400Heart rate 81 /[facility]09-10-2024 09:22-0400Respiratory rate18 /[facility]09-10-2024 09:22-7608ZuY8% (BldA) [Mass fraction]99 %[facility]08-28-2024 12:010400Body height 157.48 cmBethesda North Hospital08-28-2024 12:01-0400Body mass index (BMI) [Ratio]48.9 kg/h5VkukgufuyBethesda North Hospital08-28-2024 12:01-0400 Body oyxrbraqncu81.3 [degF][facility]08-28-2024 12:010400Body jorfef400.27 kgBet[facility] Hospital08-28-2024 12:010400Heart owja706 /[facility]08-28-2024 12:01-0400Respiratory rate18 /[facility]08-28-2024 12:01-7514JtB5% (BldA) [Mass fraction]99 %[facility] 11-13-2023 10:26-0400Body tcticj394.48 cmBet[facility] Hospital 11-13-2023 10:26-0400Body mass index (BMI) [Ratio]49 kg/y0ClamgnuxyBethesda North Hospital06-21-2024 10:26-0400Body kfsrzxyeznm01.8 [degF][facility]06-21-2024 10:26-0400Body .56 kgBet[facility] Hospital06-21-2024 10:26-0400Heart rate82 /[facility]06-21-2024 10:26-3793XtA4% (BldA) [Mass fraction]98 %[facility]04-24-2024 09:45-0400Body .48 cmBet[facility] Hospital04-24-2024 09:45-0400Body mass index (BMI) [Ratio]48.4 kg/m2 [facility]04-24-2024 09:45-0400Body rrkzydkxwft26.6 [degF][facility]04-24-2024 09:45-0400Body dpubrc998.25 kg [facility]04-24-2024 09:45-0400Heart rate51 /[facility]04-24-2024 09:45-0400Respiratory rate18 /[facility]04-24-2024 09:45-4468QyI2% (BldA) [Mass fraction]98 % [facility]10-10-2023 10:45-0400Heart rate67 /minCatherine Ly DO Work Phone: [facility]10-10-2023 10:45-0400Respiratory rate 12 /minCatherine Ly DO Work Phone: [facility]10-10-2023 10:45-4577UoZ7% (BldA) [Mass fraction]100 %Shelly Ly DO Work Phone: [facility]10-10-2023 10:40-0400Diastolic blood lfetxykn49 mm[Hg]Shelly Ly DO Work Phone: [facility]10-10-2023 10:40-0400Systolic blood fqpexhvv780 mm[Hg]Shelly Parsons DO Work Phone: [facility]09-13-2023 10:25-0400Body dmvlyf610.[address] Work Phone: [facility]09-13-2023 10:25-0400Body rfmzba200.[address] Work Phone: [facility]08-28-2023 09:24-0400Body wdejox631.2 cmSeda Larson WATER TREATMENT SPECIALIST.DYE RANGE OPERATOR Work Phone: [facility]08-28-2023 09:24-0400Body lrpujj501.92 kgShmani Larson WATER TREATMENT SPECIALIST.DYE RANGE OPERATOR Work Phone: [facility]08-28-2023 09:24-0400Diastolic blood utrwbfog23 mm[Hg]Allie Larson WATER TREATMENT SPECIALIST.DYE RANGE OPERATOR Work Phone: [facility]08-28-2023 09:24-0400Heart rate84 /min Allie Larson WATER TREATMENT SPECIALIST.DYE RANGE OPERATOR Work Phone: [phone]08-28-2023 09:24-0400Systolic blood syokivwq643 mm[Hg]Allie Larson WATER TREATMENT SPECIALIST.DYE RANGE OPERATOR Work Phone: [facility]02-13-2023 17:00-0500Body hbzcgu571.02 Dali Enrique Other [employer] Other 02-13-2023 17:00-0500Body mass index (BMI) [Ratio] 48.35 kg/f1LsjkeyRadhika Enrique Other [employer] Other 02-13-2023 17:00-0500Body ydlrnimqeei29 [degF]Radhika Enrique Other [employer] Other 02-13-2023 17:00-0500Body .83 kgRadhika Enrique Other [employer] Other 02-13-2023 17:00-0500Diastolic blood byhivflq82 mm[Hg] Radhika Jovelmond Other [employer] Other 02-13-2023 17:00-0500Respiratory rate18 /Dot Enrique Other [employer] Other 02-13-2023 17:00-8868FwF2% (BldA) [Mass fraction]99 % Radhika Jovelmond Other [employer] Other 02-13-2023 17:00-0500Systolic blood jeukdqjk518 mm[Hg] Radhika Enrique Other [employer] Other 02-10-2023 11:16-0500Body .02 cm[facility]02-10-2023 11:16-0500Body rvuvydqfosl97.8 [degF][facility]02-10-2023 11:16-0500Body kkdauf489 kgBet[facility] Hospital02-10-2023 11:16-0500Diastolic blood dcfjydey48 mm[Hg][facility]02-10-2023 11:16-0500Heart rate75 /minBet[facility]da [facility] Hospital02-10-2023 11:16-0500Respiratory rate22 /[facility]02-10-2023 11:16-4116EcT2% (BldA) [Mass fraction]100 %[facility]02-10-2023 11:16-0500Systolic blood mm[Hg] [facility]09-05-2022 15:10-0400Body whtimp616.02 cmPleo Enrique Other [employer] Other 09-05-2022 15:10-0400Body mass index (BMI) [Ratio] 46.05 kg/k1Oephzhrobinson Enrique Other [employer] Other 09-05-2022 15:10-0400Body liqztmdvwgb44 [degF]Radhika Enrique Other [employer] Other 09-05-2022 15:10-0400Body croxew872.94 kgRadhika Enrique Other [employer] Other 09-05-2022 15:10-0400Diastolic blood adqqlwpo60 mm[Hg] Radhika Enrique Other [employer] Other 09-05-2022 15:10-0400Respiratory rate16 /minRadhika Enrique Other [employer] Other 09-05-2022 15:10-8219YnC6% (BldA) [Mass fraction]100 % Radhika Jovelmond Other [employer] Other 09-05-2022 15:10-0400Systolic blood sahuslic759 mm[Hg] Radhika Jovelmond Other [employer] Other 06-20-2022 17:30-0400Body tfeign909.02 John Disla Other [employer] Other 06-20-2022 17:30-0400Body mass index (BMI) [Ratio] 45.52 kg/y8Udqhryaye Naif Other [employer] Other 06-20-2022 17:30-0400Body klhrelnukco24.2 [degF] Maria R Vacaault Other [employer] Other 06-20-2022 17:30-0400Body sceybz553.58 kgStrick Vacaault Other [employer] Other 06-20-2022 17:30-0400Diastolic blood ojauonmc06 mm[Hg] Maria R Vacaault Other [employer] Other 06-20-2022 17:30-0400Respiratory rate16 /minSclarence Naif Other [employer] Other 06-20-2022 17:30-2112OwH0% (BldA) [Mass fraction]99 % Maria R Vacaault Other [employer] Other 06-20-2022 17:30-0400Systolic blood ktjnlokn422 mm[Hg] Maria R Naif Other [employer] Other 05-23-2022 12:00-0400Body .02 cmSclarence Naif Other [employer] Other 05-23-2022 12:00-0400Body mass index (BMI) [Ratio] 46.58 kg/p2Gueejbhei Naif Other [employer] Other 05-23-2022 12:00-0400Body tezducoylwl13.2 [degF] Maria R Naif Other [employer] Other 05-23-2022 12:00-0400Body .3 kgStrick Vacaault Other [employer] Other 05-23-2022 12:00-0400Diastolic blood zmhnbaxa46 mm[Hg] Maria R Naif Other [employer] Other 05-23-2022 12:00-0400Respiratory rate16 /minSluigiulyssesaide Naif Other [employer] Other 05-23-2022 12:00-4608QzE6% (BldA) [Mass fraction]98 % Maria R Naif Other [employer] Other 05-23-2022 12:00-0400Systolic blood eoiekfhs584 mm[Hg] Maria R Naif Other [employer] Other 11-06-2021 14:45-0400Body xjvnbgmijbk21.4 [degF] Maria R Naif Other [employer] Other 11-06-2021 14:45-9953MsX2% (BldA) [Mass fraction]98 % Maria R Naif Other [employer] Other 10-14-2021 16:55-0400Body uybxgy309.02 cmSclarence Naif Other [employer] Other 10-14-2021 16:55-0400Body mass index (BMI) [Ratio] 47.11 kg/n4Tzwkmptxo Naif Other [employer] Other 10-14-2021 16:55-0400Body cvlhrbrtign82.6 [degF] Maria R Naif Other [employer] Other 10-14-2021 16:55-0400Body .66 kgStrick Naif Other [employer] Other 10-14-2021 16:55-0400Diastolic blood zztfnjoc33 mm[Hg] Maria R Naif Other [employer] Other 10-14-2021 16:55-0400Respiratory rate18 /minSluigiemily Disla Other [employer] Other 10-14-2021 16:55-0711JrQ1% (BldA) [Mass fraction]98 % Maria R Naif Other [employer] Other 10-14-2021 16:55-0400Systolic blood umlobfse246 mm[Hg] Maria R Naif Other [employer] Other 10-05-2021 14:00-0400Body yyymaj363.02 cmSclarence Naif Other [employer] Other 10-05-2021 14:00-0400Body mass index (BMI) [Ratio] 46.05 kg/j3Pboukpiag Naif Other [employer] Other 10-05-2021 14:00-0400Body wnboxzlyabq27.5 [degF] Maria R Disla Other [employer] Other 10-05-2021 14:00-0400Body xffzyp492.94 kgStepemily Disla Other [employer] Other 10-05-2021 14:00-0472UaG8% (BldA) [Mass fraction]99 % Maria R Disla Other [employer] Other Encounters Encounter DateEncounter TypeCare ProviderFacilityStart: 03-13-2025 End: 46-29-2189lyrsbpxvxfCCI RAMEYNot AvailableStart: 03-06-2025 End: 82-63-8164Dzxfiv flowsheetCorey Thomas [employer] Work Phone: [facility]BGYNStart: 03-06-2025 End: 20-72-0136Rsnudx flowsheetCorey Thomas DO Work Phone: [facility] [place] OBGYNStart: 03-06-2025 End: 74-82-6039Mqgcvm outpatient visit 15 minutesCorey ThomasCatapult International Work Phone: [facility] OBGYNComment on above:Screening, , for anatomic survey ([facility]); Second trimester ([facility]); 19 weeks gestation of ([facility])Start: 03-06-2025 End: 38-04-0090nkgpzfnmkaACLZD FAZIONot AvailableStart: 02-09-2025 End: 01-44-7372Ubmxdm outpatient visit 15 minutesIra ELMORE Work Phone: noMS [place] OBGYNComment on above:15 weeks gestation of ([facility]); Second trimester ([facility]); Blood pressure check; Nonintractable headache, unspecified chronicity pattern, unspecified headache type; NauseaStart: 02-09-2025 End: 54-10-4389Onknfhi encounter statusAmy Camila ELMORE Work Phone: NO HealthcareStart: 02-09-2025 End: 96-61-5007owjknkmtdgUAK RAMEYLuis AvailableStart: 02-09-2025 End: 13-28-6479Yzhgfn flowsjunaidIra Camila RAMÍREZ Work Phone: [facility]BGYNStart: 02-09-2025 End: 28-13-0559Ewxfag flowsjunaidIra Camila PA Work Phone: [facility]BGYNStart: 02-07-2025 End: 00-69-4191Tgmaji debbieIra Camila RAMÍREZ Work Phone: NO [place] OBGYNStart: 02-07-2025 End: 68-49-1978Ssmagh debbieIra Camila PA Work Phone: [facility]BGYNStart: 02-07-2025 End: 55-12-3645Dcvuzdwh Result EncounterIra ELMORE Work Phone: NO External Department UnsolicitedStart: 02-07-2025 End: 45-16-5037qculequpkwTTN RAMEYNot AvailableStart: 02-07-2025 End: 34-68-7492Jdnurk outpatient visit 15 minutesIra Camila PA Work Phone: NO [facility] OBGYNComment on above:Vaginal discharge; Second trimester ([facility]); 15 weeks gestation of ([facility]); Nausea and vomiting in ([facility])Start: 02-06-2025 End: 19-93-9469Psbutgszw department patient visit-Emergency Room Work Phone: Start: 01-19-2025 End: 89-65-2847Whdnvr flowsheetCorey Thomas DO Work Phone: [facility]BGYNStart: 01-19-2025 End: 11-76-5409Udshfm flowsheetCorey Thomas DO Work Phone: NO [place] OBGYNStart: 01-19-2025 End: 36-83-0630Bwljigguf Result EncounterCarmita Broerly MINING ENGINEER Work Phone: noms External Department UnsolicitedStart: 01-19-2025 End: 82-12-1642Fepyvf outpatient visit 15 minutesCorey Thomas DO Work Phone: [facility] OBGYNComment on above:GA: 48h8rXzszf: 01-19-2025 End: 86-37-9540wvogptkyheEIPFI FAZIONot AvailableStart: 12-19-2024 End: 98-25-9995pjptifajhdZNB RAMEYNot AvailableStart: 12-19-2024 End: 78-30-4259Xsdtrf outpatient visit 25 minutesRichard A Visci DO Work Phone: [facility] [place] OBGYNComment on above:GA: 2h6vRzcpi: 12-19-2024 End: 04-33-4998psurdqafrfTZJQJEM A VISCINot AvailableStart: 12-02-2024 End: 61-24-2209Gmstzrom flow sheetNoms Sws Ob NurseNOMS SWS OBComment on above: GA: 04h6wObqtz: 12-02-2024 End: 54-13-9099qsmecmitfxGKM RAMEYNot AvailableStart: 11-15-2024 End: 28-78-2595Xbrtojc encounter procedureFred ELMORE-[facility] Work Phone: Start: 11-09-2024 End: 25-10-7973Acgnenc encounter procedureRajwinder Banks APRN-[facility] [place] Work Phone: Start: 11-07-2024 End: 36-75-9248Mxtexs Mary Jo ELMORE Work Phone: [facility] BCP OBStart: 11-07-2024 End: 04-46-1441Ydebbk Mary Jo ELMORE Work Phone: noms BCP OBStart: 11-07-2024 End: 98-65-6549Guzsxfcgr Result EncounterIra ELMORE Work Phone: noMS External Department UnsolicitedStart: 11-07-2024 End: 67-63-7782Mgrmine encounter procedureIra ELMORE Work Phone: NOMI HealthcareStart: 11-07-2024 End: 28-46-1068Wfaqgjfu preventive med est patient 18-39 yrsIra Camila ELMORE Work Phone: [facility] BCP OBComment on above:Well woman exam with routine gynecological examStart: 11-07-2024 End: 12-04-6677pmfpeapkquYSZ CAMILALuis AvailableStart: 03-22-2024 End: 66-41-3495geyblwzssuWRTAPPITZ BREAULTFacility:FTMCStart: 02-02-2024 End: 46-78-9673Vugtrypd [facility] Work Phone: Start: 02-02-2024 End: 68-27-4313mqldkfxbobMEIOhioHealth [facility] Hospital Work Phone: Start: 02-02-2024 End: 23-78-5768Misencs encounter procedureUnc Health Appal[facility] Work Phone: Start: 01-20-2024 End: 94-80-2723mgvyhclcpjCTYOhio Valley Hospital Work Phone: Start: 01-20-2024 End: 60-02-1745Xrlkxjg encounter procedureUnc Health [facility]al[facility] Work Phone: Start: 11-13-2023 End: 19-52-6672dxtiesmgiaOSPOhio Valley Hospital Work Phone: Start: 11-13-2023 End: 98-70-7701Aufqlbs encounter procedureFirbyron centers Physician [facility] Work Phone: Start: 09-16-2023 End: 25-39-3227tqynqxkijgEcuxhnwtbOhioHealth [facility] Center Work Phone: Start: 09-16-2023 End: 79-26-3155Mwknbqs encounter procedureFirelands Physician Group-[facility] Work Phone: Start: 06-30-2023 End: 77-69-0875upmqkzlvbuOADTCZ R KLONKFacility:FTMCStart: 04-06-2023 End: 89-42-7256zjrysjmqluGNWAQ GOODPASTERFacility:[facility] Start: 97-70-4299pespdzfyffYLLZCI WILSONFacility:[facility] Hospitaltart: 03-12-2023 End: 64-35-1214Iqmhnhvynfxgb examination doneWhidbeyhealth Medical Center 2 Work Phone: [facility] He[facility]art: 03-12-2023 End: 37-28-6152Cfvnjggnac hospital visit by physicianGila Regional Medical Centerra [facility] 2 Work Phone: [facility] Radiology UltrasoundComment on above: Pre-op evaluation [Z01.818]Start: 03-03-2023 End: 20-75-5060gqnjvnlvgyCBULAANDE LYFacility:[facility] Westtart: 03-03-2023 End: 79-85-9616Skgevzfqzt hospital visit by physicianShelly Parsons DO Work Phone: ambulatory SurgeryComment on above:Class 3 severe obesity with serious comorbidity and body mass index (BMI) of 40.0 to 44.9 in adult,unspecified obesity type (HCC) [E66.01, Z68.41]Start: 11-40-1801lypwlcjpkh Nurse [facility] Work Phone: GastroenterologyComment on above:EGD instructions Start: 74-11-2114Y-mail encounter from caregiverNkrys [facility] Work Phone: rEM [facility] MCStart: 02-11-2023 End: 85-36-9735hvpdcsjghlXWYSQW WILSONFacility:[facility] Westtart: 02-11-2023 End: 11-46-4979pcaranuegcGVSIVS WILSONFacility:[facility] Westtart: 12-06-6646Tcedbyfyo for other preprocedural examinationCATHERINE [facility] HospitalStart: 02-11-2023 End: 30-76-4869Pylxqof encounter procedureNurse Card [facility] Rej Work Phone: CardiologyComment on above:Pre-op evaluation; Class 3 severe obesity with serious comorbidity and body mass index (BMI) of 40.0 to 44.9 in adult,unspecified obesity type (HCC)Start: 02-11-2023 End: 61-05-3045Ldaiodioqwuba examination doneNurse Rej Work Phone: CleHocking Valley Community Hospitaltart: 46-96-5103Kdzdasqfd encounter CeceHuntsman Mental Health InstituteComment on above:Smoking CessationStart: 02-04-2023 End: 54-00-2581lnodhlwfkmRXLZN PRESCOTTFacility:[facility] Main Campustart: 02-04-2023 End: 72-72-3810olngdfdxjdJfxgo [address]cott [address] Work Phone: NutritionComment on above:Body mass index (BMI) 40.0- 44.9, adult (HCC) (Primary Dx); Dietary counseling and surveillanceStart: 02-04-2023 End: 75-43-1346Saiusnubzqyn consultation with Beth Xie RD Work Phone: [facility] HOSPITALStart: 99-35-6334Zmjtm [facility] Main Work Phone: NeurologyStart: 34-24-3369eveuvqnjytOGZGWL WILSON [facility]: 33-24-7733Arrohzsvv for other preprocedural examinationSHELBY [facility] Hospitaltart: 01-30-2023 End: 32-20-2933opcoozackwWRMT AUGUSTINFacility:[facility]tart: 01-30-2023 End: 69-58-6425Kxcolhaphtltj examination doneXr Hosp Work Phone: [facility]: 01-30-2023 End: 88-44-7109Yjfktypxar hospital visit by physicianXr [facility] Work Phone: [phone] Radiology GeneralComment on above:Pre-op evaluation [Z01.818]Start: 01-19-2023 End: 49-75-7355uwrhgcljkxFVINAU WILSONFacility:[facility]tart: 01-19-2023 End: 64-59-3832Iyrvutk encounter Tariqmariana Neo MURCIADYE RANGE OPERATOR Work Phone: General SurgeryComment on above:Pre-op evaluation (Primary Dx); Class 3 severe obesity with serious comorbidity and body mass index (BMI) of 40.0 to 44.9 in adult,unspecified obesity type (HCC); Vapes nicotine containing substance; Marijuana smokerStart: 01-19-2023 End: 63-37-7585Kpvzvfpjtjaoe examination doneAllie Larson APRN.CNP Work Phone: [facility] Work Phone: Start: 09-23-2022 End: 82-44-2146hxlcvltxohFSQVMCUSY BREAULTFacility:R1Dpctm: 09-20-2022 End: 41-58-3358qjajldmfxmAGLIALTWA BREAULTFacility:S0Wsref: 07-07-2022 End: 34-11-1459Klznjxqd [facility] [place] Work Phone: Start: 07-07-2022 End: 96-85-2601hkxxjydjhsNMV [facility] Work Phone: Start: 75-73-2942Cikpxj outpatient visit 25 minutes Radhika [facility] ClydeStart: 07-04-2022 End: 15-81-9846Gijcoqswy department patient visitProm[facility] Work Phone: Start: 06-17-2022 End: 67-99-7285eeittrdbbkGnupgpedn [place] Other [place] [employer] Other Start: 79-63-0267Zurvxfutb encounterSclarence Disla [facility] ClydeStart: 05-01-2022 End: 52-45-6301nqiluqakahNAEVRDSGN BREAULTFacility:C7Getti: 03-24-2022 End: 92-53-1105svcbbpuyfjUsdppdewf Naif Other [employer] Other Start: 54-36-1469Vdmdpyxce encounterSclarence Disla [facility] ClydeStart: 01-27-2022 End: 73-03-8194tbvxyqohxdQxtjzk Dymond Other [employer] Other Start: 78-95-2849Smyjdz outpatient visit 15 minutes Radhika EnriqueMARIBELG [facility] ClydeStart: 01-14-2022 End: 56-56-7782fayujgnnatDXXTENTMN BREYAWFacility:Q7Lvitx: 11-26-2021 End: 64-46-5573dndbvlwulqIyuahexhp Naif Other [employer] Other Start: 42-92-5396Aneqyp outpatient visit 15 minutes Maria R NaifFPG [facility] ClydeStart: 11-11-2021 End: 23-87-6688efxjepwripTrtympltx Naif Other [employer] Other Start: 61-48-2354Rcmnxx outpatient visit 25 minutes Maria R NaifFP[facility] ClydeStart: 10-28-2021 End: 76-55-6208wukuqwoezeVNEGCYUIG BREAULTFacility:P3Rmmjw: 10-14-2021 End: 66-79-1881cxjvdjhsvtJhivlhgnp Naif Other [employer] Other Start: 97-29-6456Qhztya outpatient visit 15 minutes Maria R NaifFP[facility] ClydeStart: 08-18-2021 End: 96-93-0692uvakcognzvPdiickjwc Naif Other [employer] Other Start: 37-34-1716Bjfdnbeej encounterStephanie Naif [facility] ClydeStart: 06-21-2021 End: 69-76-3967dzfjwbukujYaxvvu Iva Other [employer] Other Start: 40-99-3006Cgcfdk outpatient visit 5 minutes Radhikacamilo EnriqueFPG [facility] ClydeStart: 05-28-2021 End: 06-75-1398cgplkjwukkNewenajpr Naif Other [employer] Other Start: 21-81-2453Ybpsriufw encounterStephanie Naif [facility] ClydeStart: 04-10-2021 End: 06-95-6406edmksaxhihLpphwsodx Anif Other [employer] Other Start: 96-33-5921Jwlftbbwv encounterStephanaide VacaNaif [facility] ClydeStart: 03-30-2021 End: 63-98-0346ezjkruninzZhjknqkdt Naif Other [employer] Other Start: 97-74-5174Ihdidw outpatient visit 15 minutes Maria R BreaultFPG [facility] ClydeStart: 35-45-5612Siyeio outpatient visit 15 minutesStephanie BreaultFPG [facility] ClydeStart: 78-05-4469Vxycrp outpatient visit 15 minutesStephanie BreaultFPG [facility] [place] Procedures DateProcedureProcedure DetailPerforming ClinicianStart: 60-70-9122Ljwxo dip stick/tablet rgnt non-auto w/o micrscpCorey Thomas LOYA Work Phone: Start: 35-09-3506Bvqqf dip stick/tablet rgnt non-auto w/o micrscpAmy Camila ELMORE Work Phone: Start: 58-05-5908OZKDLCCHY VAGINITIS (HTRX)Ira ELMORE Work Phone: Start: 79-67-7257Dudhb dip stick/tablet rgnt non-auto w/o micrscpAmy Camila ELMORE Work Phone: Start: 19-81-7249NOC TESTKrjuanita Will MINING ENGINEER Work Phone: Start: 27-55-5850Zatqz dip stick/tablet rgnt non-auto w/o micrscpCorey Thomas DO Work Phone: Start: 82-91-1854Uwvowdwma cultureRichard Visci DO Work Phone: start: 03-96-8149Yvuel chlamydia trachomatis amplified probe tqRichard A Visci DO Work Phone: start: 36-81-8989Jlgid dip stick/tablet rgnt non-auto w/o micrscpRichard A Visci DO Work Phone: start: 51-09-3542XWL,APTIMA HPV,AGE GDLNAmy Camila ELMORE Work Phone: Start: 92-90-1643Baswp Strep (POC)Start: 89-73-0999B- ray of right ankleStart: 42-84-4262X-ray of right footStart: 87-55-2054Sr abdominal real time w/image Janessa Larson APRN.DYE RANGE OPERATOR Work Phone: Start: 92-65-5687Gjkab iv surg pathology gross&microscopic examCatherine Ly DO Work Phone: Start: 85-34-5433Mcvskfjomhizazrekvpnocicsx transoral diagnosticToms Faisal DELGADO Work Phone: Start: 50-43-5685Gvp routine ecg w/least 12 lds i&r Henna Larson APRN.CNP Work Phone: Start: 64-65-4195Ctcbvrzdfg exam chest 2 Codie Larson APRN.CNP Work Phone: Start: 20-87-5254Oeheq culture Plan of Treatment DateCare ActivityDetailAuthorStart: 79-80-4042Xtzwo microalbumin profile [facility]: 03-06-2025 End: 60-74-0966Wuysd fetoprotein, maternalAlpha fetoprotein, maternal Lab Routine Second trimester ([facility]) Expected: 03/06/2025 (Approximate), Expires: 04/06/2025NOMI HealthcareComment on above:Expected: 03/06/2025 (Approximate), Expires: 04/06/2025Start: 03-06-2025 End: 08-49-4096OW for pregnancyUS OB 14+ weeks anatomy scan Imaging Routine Screening, , for anatomic survey ([facility]) Expected: 03/06/2025, Expires: 06/06/2025[facility] Work Phone: comment on above:Expected: 03/06/2025, Expires: 06/06/2025Start: 03-06-2025 End: 46-72-3012Vzrxayw encounter procedureNOMS Rojas OBGYNComment on above: ArrivedStart: 02-20-2025 End: 81-86-4362Rtrlrca encounter ntmnilhbf97/29/2025 11:30 AM EDT Routine [facility] [address] [place] [phone] Carmita Will, MINING ENGINEER [address] [place] [phone] [facility] Crystal OBGYNStart: 02-09-2025 End: 48-95-6515Mnpvhif encounter cxqsmotzj96/18/2025 2:40 PM EDT Routine [facility] [address] [place], [id number] Ira Jensen, PA [address] [place] [address] Lauren Rojas OBGYNComment on above:ArrivedStart: 46-38-5735Yrobsopts vaccinationNO HealthcareStart: 01-19-2025 End: 13-50-9208otvbtxkfvy05/28/2025 8:50 AM EDT Initial [facility] [address] [place], [id number] Rodrigo Guzman, DO [address] [place] [address] ArrivedJACQUELINE Rojas OBGYNComment on above:ArrivedStart: 01-16-2025 End: 10-51-2015Wzbmzgy encounter rdnwhoviv55/25/2025 11:45 AM EDT Routine [facility] [place] [facility] [address] [place] [address] Wesley Browning A, DO [address] [place] [address] N[facility] [place] OBGYNStart: 12-19-2024 End: 5624mttrfhdgxf25/28/2025 9:15 AM EDT Initial [facility] [address] [place] [phone] Wesley Browning A, DO [address] [place] [address] NOM[facility] SWS OBStart: 12-02-2024 End: 01-50-3421Nnkgqrza identified in Urine by CultureUrine culture Microbiology Routine Encounter for supervision of normal first in first trimester ([facility]) Expected: 12/02/2024, Expires: 12/02/2025NOMS HealthcareComment on above:Expected: 12/02/2024, Expires: 12/02/2025Start: 12-02-2024 End: 81-56-4575CQTBLH CARRIER SCREEN;14 GENESBEACON CARRIER SCREEN;14 GENES Lab Routine Screening for genetic disease carrier status Expected: 12/02/2024 (Approximate), Expires: 12/02/2025[facility] HealthcareComment on above:Expected: 12/02/2024 (Approximate), Expires: 12/02/2025Start: 12-02-2024 End: 20-93-6520Womtg type and Indirect antibody screen panel - BloodType and screen Lab Routine Encounter for supervision of normal first in first trimester ([facility]) Expected: 12/02/2024, Expires: 12/02/2025[facility] Comment on above:Expected: 12/02/2024, Expires: 12/02/2025Start: 12-02-2024 End: 83-57-9813ARM W Auto Differential panel - BloodCBC and differential Lab Routine Encounter for supervision of normal first in first trimester ([facility]) Expected: 12/02/2024, Expires: 12/02/2025[facility] HealthcareComment on above:Expected: 12/02/2024, Expires: 12/02/2025Start: 12-02-2024 End: 03-29-3854ABFG SCREEN 17 W/CONF, URDRUG SCREEN 17 W/CONF, UR Lab Routine Encounter for drug screening Expected: 12/02/2024, Expires: 12/02/2025[facility] HealthcareComment on above:Expected: 12/02/2024, Expires: 12/02/2025Start: 12-02-2024 End: 75-37-5634Wnslnasce B virus surface Ag [Presence] in Serum or Plasma by ImmunoassayHepatitis B surface antigen Lab Routine Encounter for supervision of normal first in first trimester ([facility]) Expected: 12/02/2024, Expires: 12/02/2025[facility] HealthcareComment on above:Expected: 12/02/2024, Expires: 12/02/2025Start: 12-02-2024 End: 10-83-1142Nftgflhuw C virus Ab [Presence] in Serum or Plasma by Immunoassay Hepatitis C antibody Lab Routine Encounter for supervision of normal first in first trimester ([facility]) Expected: 12/02/2024, Expires: 12/02/2025 N[facility] HealthcareComment on above:Expected: 12/02/2024, Expires: 12/02/2025Start: 12-02-2024 End: 10-06-0390HRX-2 antigen assayHIV-2 antigen Lab Routine Encounter for supervision of normal first in first trimester ([facility]) Expected: 12/02/2024, Expires: 12/02/2025[facility] HealthcareComment on above:Expected: 12/02/2024, Expires: 12/02/2025Start: 12-02-2024 End: 58-08-1216DyguljjO35 PLUS Core+LPIGapxuaeL71 PLUS Core+SCA Lab Routine Encounter for screening for chromosomal anomalies ([facility]) Expected: 12/02/2024 (Approximate), Expires: 12/02/2025[facility] HealthcareComment on above: Expected: 12/02/2024 (Approximate), Expires: 12/02/2025Start: 12-02-2024 End: 39-73-6702Kkg (dx) w/refl titer and confirmatory testingRpr (dx) w/refl titer and confirmatory testing Lab Routine Encounter for supervision of normal first in first trimester ([facility]) Expected: 12/02/2024, Expires: 12/02/2025[facility] HealthcareComment on above:Expected: 12/02/2024, Expires: 12/02/2025Start: 12-02-2024 End: 68-23-7656Pmdifuh antibody, IgGRubella antibody, IgG Lab Routine Encounter for supervision of normal first in first trimester ([facility]) Expected: 12/02/2024, Expires: 12/02/2025[facility] HealthcareComment on above:Expected: 12/02/2024, Expires: 12/02/2025Start: 12-02-2024 End: 49-38-6168Lgcfkezahq complete panel - UrineUrinalysis with microscopic Lab Routine Encounter for supervision of normal first in first trimester ([facility]) Expected: 12/02/2024, Expires: 12/02/2025[facility] Healthcare Work Phone: comment on above:Expected: 12/02/2024, Expires: 12/02/2025Start: 11-07-2024 End: 78-57-2066Ojwarkf encounter iuudswxdt63/ 11:00 AM EDT Office Visit [facility] [address] [place] [phone] Ira Jensen PA [address] [place] [address] ArrivedNOMS BCP OBComment on above:ArrivedStart: 02-02-2024 [facility] 74-86-5456Uhvrk-19 Vaccine ( season)Covid-19 Vaccine ()[facility]: 01-24-2024 Influenza vaccinationInfluenza Vaccine (#1)[facility]: 01-23-2023 Influenza vaccinationSumma Healthtart: 01-19-2023 End: 087520-lplafzqzjruxty D3 [Mass/volume] in Serum or PlasmaVITAMIN D 25 HYDROXY Lab Routine Pre-op evaluation Class 3 severe obesity with serious comorbidity and body mass index (BMI) of 40.0 to 44.9 in adult, unspecified obesity type (HCC) Expected: 01/19/2023, Expires: 03/21/2023[facility] Work Phone: Comment on above:Expected: 01/19/2023, Expires: 03/21/2023Start: 01-19-2023 End: 03-21-6233HJE W Auto Differential panel - BloodCBC + DIFF Lab Routine Pre- op evaluation Class 3 severe obesity with serious comorbidity and body mass index (BMI) of 40.0 to 44.9 in adult, unspecified obesity type (HCC) Expected: 01/19/2023, Expires: 03/21/2023[facility] Work Phone: Comment on above:Expected: 01/19/2023, Expires: 03/21/2023Start: 01-19-2023 End: 21-79-0062Ytetjzaxr (Vitamin B12) [Mass/volume] in Serum or PlasmaVITAMIN B12 BLOOD Lab Routine Pre-op evaluation Class 3 severe obesity with serious comorbidity andbody mass index (BMI) of 40.0 to 44.9 in adult, unspecified obesity type (HCC) Expected: 01/19/2023, Expires: 03/21/2023[facility] Work Phone: Comment on above:Expected: 01/19/2023, Expires: 03/21/2023Start: 01-19-2023 End: 75-76-3529Pqurdytzusrwk metabolic 2000 panel - Serum or PlasmaCOMP METABOLIC PANEL Lab Routine Pre-op evaluation Class 3 severe obesity with serious comorbidity and body mass index (BMI) of 40.0 to 44.9 in adult, unspecified obesity type (HCC) Expected: 01/19/2023, Expires: 03/21/2023 [facility] Work Phone: Comment on above:Expected: 01/19/2023, Expires: 03/21/2023Start: 01-19-2023 End: 14-09-7737Mqkdtjag [Mass/volume] in Serum or PlasmaFERRITIN BLD Lab Routine Pre-op evaluation Class 3 severe obesity with serious comorbidity and bodymass index (BMI) of 40.0 to 44.9 in adult, unspecified obesity type (HCC) Expected: 01/19/2023, Expires: 03/21/2023[facility] Work Phone: Comment on above:Expected: 01/19/2023, Expires: 03/21/2023Start: 01-19-2023 End: 15-90-7327Hqaroz [Mass/volume] in Serum or PlasmaFOLATE SERUM Lab Routine Pre-op evaluation Class 3 severe obesity with serious comorbidity and bodymass index (BMI) of 40.0 to 44.9 in adult, unspecified obesity type (HCC) Expected: 01/19/2023, Expires: 03/21/2023[facility] Work Phone: Comment on above:Expected: 01/19/2023, Expires: 03/21/2023Start: 01-19-2023 End: 11-19-4372Chfelgewtq A1c in BloodHGB A1C Lab Routine Pre-op evaluation Class 3 severe obesity with serious comorbidity and body massindex (BMI) of 40.0 to 44.9 in adult, unspecified obesity type (HCC) Expected: 01/19/2023, Expires: 03/21/2023[facility] Work Phone: Comment on above:Expected: 01/19/2023, Expires: 03/21/2023Start: 01-19-2023 End: 59-49-6627Tfgu and Iron binding capacity panel - Serum or PlasmaIRON + TIBC Lab Routine Pre-op evaluation Class 3 severe obesity with serious comorbidity and body mass index (BMI) of 40.0 to 44.9 in adult, unspecified obesity type (HCC) Expected: 01/19/2023, Expires: 03/21/2023[facility] Work Phone: Comment on above:Expected: 01/19/2023, Expires: 03/21/2023Start: 01-19-2023 End: 38-47-9534Arlkz 1996 panel - Serum or PlasmaLIPID PANEL BASIC Lab Routine Pre-op evaluation Class 3 severe obesity with serious comorbidity andbody mass index (BMI) of 40.0 to 44.9 in adult, unspecified obesity type (HCC) Expected: 01/19/2023, Expires: 03/21/2023[facility] Work Phone: Comment on above:Expected: 01/19/2023, Expires: 03/21/2023Start: 01-19-2023 End: 73-77-8338Vxtjxyzxdaf peptide.B prohormone N-Terminal [Mass/volume] in Serum or PlasmaNT PRO BNP Lab Routine Pre-op evaluation Class 3 severe obesity with serious comorbidity and body mass index (BMI) of 40.0 to 44.9 in adult, unspecified obesity type (HCC) Expected: 01/19/2023, Expires: 03/21/2023 [facility] Work Phone: Comment on above:Expected: 01/19/2023, Expires: 03/21/2023Start: 01-19-2023 End: 60-68-9803FVBUBSQF & METAB, URNICOTINE & METAB, UR Lab Routine Pre-op evaluation Class 3 severe obesity with serious comorbidity and body mass index (BMI) of 40.0 to 44.9 in adult, unspecified obesity type (HCC) Expected: 12/24, Expires: 03/21/2023[facility] Work Phone: Comment on above:Expected: 01/19/2023, Expires: 03/21/2023Start: 01-19-2023 End: 98-51-1316Fzyobuompkz [Units/volume] in Serum or PlasmaTSH BLD Lab Routine Pre-op evaluation Class 3 severe obesity with serious comorbidity and body mass index (BMI) of 40.0 to 44.9 in adult, unspecified obesity type (HCC) Expected: 01/19/2023, Expires:03/21/2023[facility] Work Phone: Comment on above:Expected: 01/19/2023, Expires: 03/21/2023Start: 01-19-2023 End: 50-26-0041CWL SCREEN ROUT URTOX SCREEN ROUT UR Lab Routine Pre-op evaluation Class 3 severe obesity with serious comorbidity and body mass index (BMI) of 40.0 to 44.9 in adult, unspecified obesity type (HCC) Expected: 01/19/2023, Expires: 03/21/2023[facility] Work Phone: Comment on above:Expected: 01/19/2023, Expires: 03/21/2023Start: 01-19-2023 End: 24-15-9601MWUEQSN B1 (THIAMINE), WHOLE BLOODVITAMIN B1 (THIAMINE), WHOLE BLOOD Lab Routine Pre-op evaluation Class 3 severe obesity with serious comorbidity and body mass index (BMI) of 40.0 to 44.9 in adult, unspecified obesity type (HCC) Expected: 01/19/2023, Expires: 03/21/2023[facility] Work Phone: Comment on above:Expected: 01/19/2023, Expires: 03/21/2023Start: 73-90-1666Vgfrsppg identified in Urine by CultureShelby Memorial Hospitaltart: 26-83-2606BPD TESTINGPAP TESTINGSt. [facility] Start: 68-26-6583Qztvcbxuw for malignant neoplasm of cervixCervical Cancer ScreeningSumma Healthtart: 37-34-7327XJAKVE PCP TEAM CHRONIC DISEASE VISIT ANNUAL PCP TEAM CHRONIC DISEASE VISITSumma Healthtart: 85-40-6625JQTCOBRDF SCREENING (18-24)CHLAMYDIA SCREENING (18-24)[facility]: 41-11-6726HK (GONORRHEA) SCREENING (18-24)GC (GONORRHEA) SCREENING (18-24)[facility] Start: 97-96-1547MRQBQMULE C SCREENINGHEPATITIS C SCREENINGSt. [facility] Start: 66-85-0276Tpzdpdwdq C screeningHepatitis C ScreeningSt. [facility] Start: 07-99-9626BER SCREENINGHIV SCREENINGSumma Healthtart: 12-55-6424AKS screeningHIV ScreeningSumma Healthtart: 44-21-6132Jlalsdsos for Chlamydia trachomatisChlamydia Screening (18-24)[facility]: 2019 SPIROMETRYSPIROMETRYSumma Healthtart: 78-25-9522Rftlaygpkpqrq B Vaccine: Consider Based On Risk (1 of 2 - Patient Seeks Protection)Meningococcal B Vaccine: Consider Based On Risk (1 of 2 - Patient Seeks Protection)[facility]: 08-06-2207YNEMLHETCNRPT B: Consider based on risk (1 of 2 - Patient Seeks Protection)MENINGOCOCCAL B: Consider based on risk (1 of 2 - Patient Seeks Protection)[facility]: 38-88-9614VHMQ TO ADULT TRANSITION ANNUAL ASSESSMENTPEDS TO ADULT TRANSITION ANNUAL ASSESSMENTSt. [facility] Start: 71-21-8217DTFD TO ADULT TRANSITION INITIAL DISCUSSIONPEDS TO ADULT TRANSITION INITIAL DISCUSSIONSumma Healthtart: 95-26-8376RNOWWPHGNJMV (1 - PCV)PNEUMOCOCCAL (1 - PCV)[facility]: 69-72-8101Kkpjofdwlxqm vaccinationPneumococcal Vaccine (1 - PCV)[facility]: 12-30-4566UEXQQ- 19 VACCINE (#1)COVID-19 VACCINE (#1)[facility] CampusAtopobium vaginae DNA [Presence] in Vaginal fluid by HANNY with probe detectionBethesda North HospitalBacterial vaginosis associated bacterium 2 DNA [Presence] in Vaginal fluid by HANNY with probe detectionBethesda North Hospital CHLAMYDIA TRACHOMATIS (GENITO/STI)CHLAMYDIA TRACHOMATIS (GENITO/STI) Lab Routine Vaginal discharge Ordered: 02/07/2025[facility] ExaptiveComment on above:Ordered: 02/07/2025ytology Cervical or vaginal smear or scraping studyPap Smear Pathology and Cytology Routine Well woman exam with routine gynecological exam Ordered: 11/07/2024[facility] [employer] Work Phone: comment on above:Ordered: 11/07/2024 End: 86-96-5573NBV COMPLETEECG COMPLETE ECG Routine Pre-op evaluation Class 3 severe obesity with serious comorbidity and bodymass index (BMI) of 40.0 to 44.9 in adult, unspecified obesity type (HCC) 1 Occurrences starting 01/19/[address] [place] [address] Work4 Work Phone: Comment on above:1 Occurrences starting 01/19/2023 until 01/20/2024ECG COMPLETEECG COMPLETE ECG Routine Pre-op evaluation Class 3 severe obesity with serious comorbidity and bodymass index (BMI) of 40.0 to 44.9 in adult, unspecified obesity type (HCC) 02/11/2023 8:29 AM [facility] Work4 Work Phone: Hemoglobin A1c/Hemoglobin.total in BloodHemoglobin A1c Lab Routine First trimester ([facility]) 12 weeks gestation of ([facility]) Ordered: 01/19/2025[facility] [employer] Work Phone: comment on above:Ordered: 01/19/2025 End: 95-57-3714TVNF SLEEP APNEA TEST (HSAT)HOME SLEEP APNEA TEST (HSAT) Procedures Routine Pre-op evaluation Class 3 severe obesity with serious comorbidity and body mass index (BMI) of 40.0 to 44.9 in adult, unspecified obesity type (HCC) 1 Occurrences starting 01/19/[address] [place] [address] Work4 Work Phone: Comment on above:1 Occurrences starting 01/19/2023 until 01/19/2024IGP,rfx Apt HPV ASCU,16/18,45IGP,rfx Apt HPV ASCU,16/18,45 Lab Routine 13 weeks gestation of ([facility]) Screening for malignant neoplasm of cervix Ordered: 12/19/2024[facility] [employer] Work Phone: comment on above:Ordered: 12/19/2024Megasphaera sp type 1 DNA [Presence] in Vaginal fluid by HANNY with probe detectionBethesda North HospitalNeisseria gonorrhoeae DNA [Presence] in Unspecified specimen by HANNY with probe detectionNeisseria gonorrhea DNA probe, direct Lab Routine Vaginal discharge Ordered: 02/07/2025[facility] HealthcareComment on above: Ordered: 02/07/2025Patient EducationSinusitis in adultsPromedica Flower Hospital Ctr Work Phone: Patient referralPromedica Flower Hospital Ctr Work Phone: End: 22-30-7547Txqeurjixo exam chest 2 viewsXR CHEST 2V FRONTAL/LAT Radiology Routine Pre-op evaluation Class 3 severe obesity with serious comorbidity and body mass index (BMI) of 40.0 to 44.9 in adult, unspecified obesity type (HCC) 1 Occurrences starting 01/19/2023 until 02/18/2024[facility] Work Phone: Comment on above:1 Occurrences starting 01/19/2023 until 02/18/2024SURESWAB(R) ADVANCED VAGINITIS PLUS, TMASURESWAB(R) ADVANCED VAGINITIS PLUS, TMA Pathology and Cytology Routine Vaginal discharge Ordered: 0 02/07/2025[facility] [employer] Work Phone: comment on above:Ordered: 02/07/2025 End: 27-57-6435YB ABD RIGHT UPPER QUADRANTUS ABD RIGHT UPPER QUADRANT Radiology Routine Pre-op evaluation Class 3 severe obesity with seriouscomorbidity and body mass index (BMI) of 40.0 to 44.9 in adult, unspecified obesity type (HCC) 1 Occurrences starting 01/19/2023 until 02/18/2024[facility] Work Phone: Comment on above:1 Occurrences starting 01/19/2023 until 02/18/2024[facility] Immunizations Immunization DateImmunizationNotesCare UzjnsnhtBffatkfz48-52-5299hxtydzi toxoid, reduced diphtheria toxoid, and acellular pertussis vaccine, adsorbedStephanie Naif Other [facility] Work Phone: [phone], injectable, quadrivalent, contains preservativeShelmariana Larson WATER TREATMENT SPECIALIST.[facility] Work Phone: [phone] Work Phone: [phone] virus vaccine, unspecified formulationTherFormerly [facility]10-21-2019influenza, injectable, quadrivalent, contains preservativeSclarence Disla Other [facility] Work Phone: [phone], injectable, quadrivalent, preservative [facility]04-22-2019meningococcal oligosaccharide (groups A, C, Y and W-135) diphtheria toxoid conjugate vaccine (MCV4O)Allie Larson WATER TREATMENT SPECIALIST.[facility] Work Phone: [phone] Work Phone: [phone], seasonal, injectableShmani Larson WATER TREATMENT SPECIALIST.[facility] Work Phone: [phone] Work Phone: [phone] A vaccine, pediatric/adolescent dosage, 2 dose scheduleSeda Larson WATER TREATMENT SPECIALIST.[facility] Work Phone: [phone] Work Phone: [phone] polysaccharide (groups A, C, Y and W-135) diphtheria toxoid conjugate vaccine (MCV4P)Allie Larson WATER TREATMENT SPECIALIST.[facility] Work Phone: [phone] Work Phone: [phone] toxoid, reduced diphtheria toxoid, and acellular pertussis vaccine, adsorbedShmani Larson WATER TREATMENT SPECIALIST.[facility] Work Phone: [phone] Work Phone: [phone] Papillomavirus 9-valent vaccineSeda Larson WATER TREATMENT SPECIALIST.[facility] Work Phone: [facility] Work Phone: [phone], injectable, quadrivalent, preservative freeAllie Larson WATER TREATMENT SPECIALIST.[facility] Work Phone: [facility] Work Phone: [phone] Papillomavirus 9-valent vaccineSkettering health miamisburgmariana Larson WATER TREATMENT SPECIALIST.[facility] Work Phone: [phone] Work Phone: [phone] Papillomavirus 9-valent vaccineSkettering health miamisburgamriana Larson WATER TREATMENT SPECIALIST.[facility] Work Phone: [facility] Work Phone: [phone] A vaccine, pediatric/adolescent dosage, 2 dose scheduleSkettering health miamisburgmariana Larson WATER TREATMENT SPECIALIST.[facility] Work Phone: [facility] Work Phone: [phone] virus vaccineSkettering health miamisburgmariana Larson WATER TREATMENT SPECIALIST.[facility] Work Phone: [facility] Work Phone: [phone], seasonal, injectablemani Larson WATER TREATMENT SPECIALIST.[facility] Work Phone: [facility] Work Phone: [phone], seasonal, injectableAllie Larson WATER TREATMENT SPECIALIST.[facility] Work Phone: [phone] Work Phone: [phone], tetanus toxoids and acellular pertussis vaccine, 5 pertussis antigensAllie Larson WATER TREATMENT SPECIALIST.[facility] Work Phone: [phone] Work Phone: [phone], mumps and rubella virus vaccine Alliemariana Larson WATER TREATMENT SPECIALIST.[facility] Work Phone: [facility] Work Phone: [phone] vaccine, inactivatedmani Larson WATER TREATMENT SPECIALIST.[facility] Work Phone: [phone] Work Phone: [phone], tetanus toxoids and acellular pertussis vaccineSkettering health miamisburgmariana Larson WATER TREATMENT SPECIALIST.[facility] Work Phone: [phone] Work Phone: [phone] influenzae type b vaccine, PRP-T conjugateShelmariana Larson WATER TREATMENT SPECIALIST.[facility] Work Phone: 1()[facility] Work Phone: [phone], mumps and rubella virus vaccine Allie Larson WATER TREATMENT SPECIALIST.[facility] Work Phone: [phone] Work Phone: [phone] virus vaccineSkettering health miamisburgmariana Larson WATER TREATMENT SPECIALIST.[facility] Work Phone: [phone] Work Phone: [phone], tetanus toxoids and acellular pertussis vaccine, unspecified formulationShelmariana Larson WATER TREATMENT SPECIALIST.[facility] Work Phone: 1()[facility] Work Phone: [phone] influenzae type b conjugate and Hepatitis B vaccineSkettering health miamisburgmariana Larson WATER TREATMENT SPECIALIST.[facility] Work Phone: 1()[facility] Work Phone: [phone] vaccine, inactivatedShmani Larson WATER TREATMENT SPECIALIST.[facility] Work Phone: [phone] Work Phone: [phone], tetanus toxoids and acellular pertussis vaccine, unspecified formulationSkettering health miamisburgmariana Larson WATER TREATMENT SPECIALIST.[facility] Work Phone: [phone] Work Phone: [phone] influenzae type b conjugate and Hepatitis B vaccineSkettering health miamisburgmariana Larson WATER TREATMENT SPECIALIST.[facility] Work Phone: [phone] Work Phone: [phone] conjugate vaccine, 7 valent Allie Larson WATER TREATMENT SPECIALIST.[facility] Work Phone: [phone] Work Phone: [phone] vaccine, inactivatedShmani Larson WATER TREATMENT SPECIALIST.[facility] Work Phone: [facility] Work Phone: [phone], tetanus toxoids and acellular pertussis vaccine, unspecified formulationShelmariana Larson WATER TREATMENT SPECIALIST.DYE RANGE OPERATOR Work Phone: [facility] Work Phone: [phone] influenzae type b conjugate and Hepatitis B vaccineSgood samaritan university [facility] Neo WATER TREATMENT SPECIALIST.DYE RANGE OPERATOR Work Phone: [facility] Work Phone: [phone] conjugate vaccine, 7 valent Alliemariana Larson WATER TREATMENT SPECIALIST.[facility] Work Phone: [facility] Work Phone: [phone] vaccine, inactivatedShmani Larson WATER TREATMENT SPECIALIST.[facility] Work Phone: [facility] Work Phone: Payers DatePayer CategoryPayerPolicy [id number] 2023Medicaid [id number] 2..840.1.442781.3.57[id number] 2..840.1.986512.3.57[id number] 2.16.840.1.906644.3.57[id number] 2.16.840.1.735602.3.57[id number] 2.16.840.1.858061.3.57[id number] 2.16.840.1.450230.3.57[id number] 2.0.1.900786.3.57[id number] 2.840.1.212811.3.57[id number] 2.0.1.101845.3.57[id number] 2.0.1.571132.3.57[id number] 2..1.787776.3.57[id number] 2.0.1.608896.3.57[id number] 2..1.942080.3.57[id number] 2..1.995665.3.57[id number] 2..1.273132.3.57[id number] 2..1.866174.3.579.2.1259 [id number] 1959Unknown [id number] 2..[id number] 2..1.604943.19 [id number] 2..[id number] 2..1.853336.3.579.2.531 Social History DateTypeDetailFacilityUnknown if ever smokedNort TorqBak Other Start: 01-19-2023 End: 53-05-6674[facility]w [facility] TorqBak Other Start: 07-04-2022 End: 13-68-5074Ugrlvny smoking status NHISSmoker (finding)[facility] Hospitaltart: 38-07-9083Enr Assigned At BirthFeOhioHealth Grove City Methodist Hospitaltart: 01-19-2023 End: 59-46-0958Erkknlz smoking status NHISNever smoked tobaccoSt. [facility]'S [facility] Work Phone: Start: 01-19-2023 End: 72-77-8854Qumsjlm use and exposureSmokeless tobacco non-userSt. [facility] Work Phone: Start: 01-19-2023 End: 45-94-9879Puxgvkk intakeCurrent drinker of alcohol (finding)[facility]: 01-19-2023 End: 78-27-3425Xrwejgq of Social functionSumma Healthtart: 09-25-2022 National Score (1-100), lower number is lower dber02FKLH HealthcareStart: 32-40-5955Pcihxkk CommentvapingSumma Healthtart: 37-43-9012Bnzelpk Comment once a monthSumma Healthtart: 54-86-0877Jcjlmm identityIdentifies as female gender (finding)[facility]: 20-99-9031Rptagh orientationBisexual (finding)[facility]: 37-50-7332Bfigoin Commentvaping- Quit 02/02/23 [facility] smoking status NHISTobacco smoking consumption unknown [facility] HealthcareStart: 50-27-4867Rud assigned at birthNot on fileNOMS Healthcare Start: 12-02-2024 End: 30-81-4434Nqavjeyiz beverage intakeEx-drinker (finding)[facility] Start: 61-71-4185Rxegoyi Commentcaffeine intake: noneNOMS HealthcareStart: 03-45-4959XiuitwlvpMxfcnkfjhShelby Memorial HospitalexFemale (finding)[facility] Goals DatePatient GoalDesired Activity/StatePersonal health goal Clinical Notes 02-26-2021 to 03-13-2025 Note Date & NilkBxzaRtnqxaef36-96-1930 Note ADDENDUM #1 Due to technical factors and positioning, posterior fossa evaluation and RVOT, LVOT and four-chamber cardiac views are suboptimal. Recommend follow-up imaging attention directed to the cardiac and posterior fossa regions. TRANSCRIBED BY: ELECTRONICALLY SIGNED BY: Burt Justice MD FINDINGS: A single, live intrauterine is present with normal cardiac rate of 132 beats per minute. Normal activity and amniotic fluid volume. Morphology is grossly normal. The placenta ismarginal, inferior aspect 3 mm from the closed internal cervical os, cervical length 4-6 mm. The current sonographic age is 19 weeks and 4 days, based on the following measurements: BPD 4.4 cm (19 weeks, 2 days) Head Circumference 16.7 cm (19 weeks, 3 days) Abdominal Circumference 14.9 cm (20 weeks, 1 day) Femur Length 3.1 cm (19 weeks, 4 days) Presentation Breech Placenta Marginal posterior Weight (g) by Percentile 34.8 % * These measurements result in an estimated date of delivery of August 03, 2025. The current estimatedfetal weight is 315 grams (0 pound, 11 ounces). IMPRESSION: 1. Single, live intrauterine , current sonographic age of 19 weeks and 4 days, with an estimated date of delivery of August 03, 2025. 2. Posterior, marginal placenta * Estimated Weight (g) by Percentile is based upon an accurate estimated age based on last menstrual period. TRANSCRIBED BY: ELECTRONICALLY SIGNED BY: Burt Justice MDNot AvailableComment on above: Order Comment: US OB ANATOMY SINGLE W US OB CERVICAL LENGTH Estimated Date of Delivery: 07/31/25 Gestational Age as of 03/06/2025: 45p8t92-27-2244 History of Present illness Narrative* Anna He LPN - 03/06/2025 10:00 AM [...] nursing note reviewed. Exam conducted with a home school coordinator present. Vitals: Estimated body mass index is 52.66 kg/m as calculated from the following: Height as of 12/08/22: 5' 3 . Weight as of this encounter: 297 lb 4 oz. BP: 110/70 Patient's last menstrual period was 09/18/2024. ASSESSMENT & PLAN ICD-10-CM 1. Screening, , for anatomic survey ([facility]) Z36.89 US OB 14+ weeks anatomy scan 2. Second trimester ([facility]) Z34.92 Alpha fetoprotein, maternal Alpha fetoprotein, maternal 3. 19 weeks gestation of ([facility]) Z3A.19 POCT urinalysis dipstick manually resulted Patient [...] of: Rodrigo Guzman DO documented in this encounterSt. Joseph Medical CenterGjjvacycia97-68-3291 History of Present illness Narrative* RAMÍREZ Castle - 02/09/2025 2:40 PM EDT Reason for Appointment: Patient ID: Saroj [...] PLAN ICD-10-CM 1. 15 weeks gestation of ([facility]) Z3A.15 POCT urinalysis dipstick manually resulted 2. Second trimester ([facility]) Z34.92 POCT urinalysis dipstick manually resulted [...] behalf of: RAMÍREZ Castle documented in this encounterSt. Joseph Medical CenterYpdlyoscav50-85-3281 History of Present illness Narrative* RAMÍREZ Castle - 02/07/2025 9:50 AM EDT [...] gonorrhea DNA probe, direct 2. Second trimester ([facility]) Z34.92 3. 15 weeks gestation of ([facility]) Z3A.15 4. Nausea and vomiting in ([facility]) O21.9 magnesium oxide (Mag-Ox) 400 MG [...] behalf of: RAMÍREZ Castle documented in this encounterSt. Joseph Medical CenterFebhevvwck79-51-3027 History of Present illness Narrative* Anna He LPN - 01/19/2025 8:50 AM EDT Reason for Appointment: Patient ID: [...] nursing note reviewed. Exam conducted with a home school coordinator present. Vitals: Estimated body mass index is 52.97 kg/m as calculated from the following: Height as of 12/08/22: 5' 3 . Weight as of this encounter: 299 lb. BP: 122/76 Patient's last menstrual period was 09/18/2024. ASSESSMENT & PLAN ICD-10-CM 1. First trimester ([facility] Z34.91 POCT urinalysis dipstick manually resulted 2. 12 weeks gestation of ([facility]) Z3A.12 New OB: Patient presents for transfer of care from another provider today is 1st time obstetrics appointment with provider. Patient is currently 12w3d . Patients history has been reviewed in great detail including any potential risks. Patient stated she currently has no complaints. Expectations throughout regarding labs, ultrasounds, and appointments have been discussed with the patientin detail. It was reiterated that the patient is to drink 6-8 glasses of water a day, eat 6 small meals a day, do not consume raw or undercooked meat, and stay away from [facility]. Patient has been consulted regarding any [...] appointment with vaginal cultures as she has alreadyhad PAP obtained. Documented by Anna He LPN on behalf of: Rodrigo Guzman DO documented in this encounterSt. Joseph Medical CenterCmnkchzcyz58-45-7331 History of Present illness Narrative* Wesley Browning DO - 12/19/2024 9:15 AM EDT Images from the original note were not [...] supervision of normal first in first trimester ([facility]) Z34.01 2. 13 weeks gestation of ([facility]) Z3A.13 POCT URINALYSIS [address]/NG IGP,rfx Apt HPV ASCU,16/18,45 3. Screen for sexually transmitted diseases Z11.[address]/NG 4. Herpes simplex type 2 infection complicating , first trimester ([facility]) O98.511 B00.9 5. Severe obesity due to excess calories affecting in first trimester ([facility]) O99.211 E66.01 6. Screening for malignant neoplasm of cervix Z12.4 IGP,rfx Apt HPV ASCU,16/18,45 7. Nausea and vomiting during ([facility]) O21.9 She is here for routine visit. She complains of significant nausea. We discussed Unisom and vitamin B6 along with Zofran. We talked about how important is that she stay hydrated and symptomsto watch out for if she were to [...] back in 4 weeks. documented in this encounterSt. Joseph Medical CenterJeppebormw38-68-4840 History of Present illness Narrative* Darlyn Gonzalez RN - 12/02/2024 11:00 AM EDT Name: Saroj Membreno Date/Time of Service:12/02/2024 12:05 [...] of estimated date of delivery No Thalassemia (Afghan, Citizen Of [place], Mediterranean, or background): MCV less than 80 No Neural tube defect (Meningomyelocele, Spina bifida, or Anencephaly) No Down syndrome No Yusuf-Sachs (Ashkenazi Caodaism, Cajun, New Zealander Kimball) No Leoncio disease (Ashkenazi Caodaism) No Familial dysautonomia (Ashkenazi Caodaism) No Sickle cell disease or trait () No Hemophilia or other blood disorders No Muscular dystrophy No Cystic fibrosis No Edgar's chorea No Other inherited genetic or chromosomal [...] RN 12/02/2024 12:05 PM documented in this encounterSt. Joseph Medical CenterRygvndwncy38-54-2924 Evaluation note* Diagnosis Onset Date Resolution Status Admit Date Acute bacterial sinusitis noneactiveJune 2024 10:32amShinglesacuteJune 2024 10:05am [facility] Work Phone: [phone] 573-206306-16-2025 History of Present illness Narrative* RAMÍREZ Castle [...] nursing note reviewed. Exam conducted with a home school coordinator present. Vitals: Estimated body mass index [...] behalf of: RAMÍREZ Castle documented in this encounterSt. Joseph Medical CenterDojabwhnmu83-21-4473 NoteHNO ID: [id number] Author: Netta Dillard, PhD Service: ? Author Type: Psychologist Type: Progress Notes Filed: 04/07/2023 7:48 AM Note Text: [facility] Bariatric Behavioral Services Progress Note April 06, 2023 Patient was a no-show. Netta Dillard, Ph.D. PsychologistSumma Health Wad[facility] - [facility]10-10-2023 History and physical note* Shelly Parsons DO [...] MAC Additional Comments: None Shelly Parsons DO [facility] Work Phone: [phone] 330-287610-10-2023 History and physical note* Shelly Parsons DO [...] None Shelly Parsons DO documented in this encounterSt. Mary'[facility]10[facility] Nurse Note* Meghann Kwan RN - 03/03/2023 [...] Meghann Escalante RN In Department: AMBULATORY SURGERY [facility]10-10-2023 Nurse Note* Meghann Kwan RN - 03/03/2023 [...] In Department: AMBULATORY SURGERY documented in this encounterSt. Mary'[facility]10[facility] Nurse Note* Bia Price RN - 03/03/2023 [...] Bia Price RN In Department: AMBULATORY SURGERY [facility]10-04-2023 Miscellaneous Notes* Telephone Encounter - Mary Alice Clark Ma - 02/25/2023 4:26 PM EDT Lm to confirm procedure for 03-03-23 documented in this encounterSt. Mary'[facility]09-25-2023 NoteHNO ID: [id number] Author: Eugenia Chaudhary Service: ? Author Type: ? Type: Progress Notes Filed: 02/16/2023 1:25 PM Note Text: Sleep Study Check-In Documentation Date: February 16, 2023 Name: Saroj Membreno Comments: HST was returned in working order with all sleep questionnaires Eugenia ChaudharySumma Health Wadsworth - Rittman Medical Center09-25-2023 History of Present illness Narrative* Eugenia Chaudhary [...] Auth. provider HOME SLEEP APNEA TEST (HSAT) [[id number]] 01/19/23 Allie Larson APRN.DYE RANGE OPERATOR Assoc. diagnoses: Pre-op evaluation [Z01.818], Class [...] Special instructions: None-follow laboratory protocol [facility] Staff Note: I have read the above protocol, edited as needed, and agree to the plan. Kelvin Gabriel III, PhD 12:15 PM, 02/11/2023 * Temo Torres - 02/10/2023 9:56 PM EDT Nomad# [id number] +GPS , Date shipped out: 02/11/23 SENT FEDEX DELIVERY - FEDEX RETURN Tracking mailout: [phone] Tracking return: [phone] * Katharina Blood - 02/01/2023 8:23 AM EDT February 01, 2023 An order has been received for Home Sleep Apnea Test (HSAT) from Allie Sales APRN.DYE RANGE OPERATORharley. [facility] Staff. Visit prep complete. Comments :No The sleep study is scheduled for 02/21. Insurance: Payor: [employer] MEDICAID / Plan: [place] MEDICAID [facility] / Product Type: Medicaid / Payer/Plan Subscr Sex Relation Sub. Ins. ID Effective Group Num 1. ANTHEM MEDICA* SAROJ MEMBRENO 01 Female Self [id number] [birth year] [id number] Katharina Blood documented in this encounterSt. Mary'[facility]-2023 NoteHNO ID: [id number] Author: Netta Dillard, PhD Service: ? Author Type: Psychologist Type: Progress Notes Filed: 02/18/2023 12:31 PM Note Text: [facility] Bariatric Behavioral Services Progress Note February 16, 2023 Patient cancelled today's appt. Netta Dillard, Ph.D. PsychologistSumma Health Wadsworth - Rittman Medical Center09-20-2023 NoteHNO ID: [id number] Author: Kelvin Gabriel III, PhD Service: ? Author Type: Physician Type: Progress Notes Filed: 02/16/2023 1:25 PM Note Text: February 11, 2023 Standing PSG Orders signed in the last 90 days None Future PSG Orders signed in the last 90 days Ordered Auth. provider HOME SLEEP APNEA TEST (HSAT) [[id number]] 01/19/23 Allie Larson APRN.DYE RANGE OPERATOR Assoc. diagnoses: Pre-op evaluation [Z01.818], Class [...] Special instructions: None-follow laboratory protocol [facility] Staff Note: I have read the above protocol, edited as needed, and agree to the plan. Kelvin Gabriel III, PhD 12:15 PM, 02/11/2023[facility]09-20-2023 Nurse Note* Roya Lawler RN - 02/11/2023 8:33 AM EDT Ekg completed. Pt with no voiced complaints. Provider cc'd of completion. documented in this encounterSt. Mary'[facility]09-19-2023 NoteHNO ID: [id number] Author: Temo Torres Service: ? Author Type: ? Type: Progress Notes Filed: 02/16/2023 1:25 PM Note Text: Nomad# [id number] +GPS , Date shipped out: 02/11/23 SENT FEDEX DELIVERY - FEDEX RETURN Tracking mailout: [phone] Tracking return: [id number] [id number]09-19-2023 Instructions * Patient Instructions* Sasha Xie RD - 02/10/2023 1:39 PM EDT NUTRITION CARE PLAN Nutrition Intervention 02/04/2023: Modify type and amount of food consumed at meals and snacks Before your next visit, read the Nutritional Guidelines section of Your Guide to Surgery. [email or web address]/departments/bariatric/patient-education/videos-gu ides#guides-tab 2. Drink 64 oz of [...] Slim Fast Advanced Nutrition (20 grams protein) Sanborn Breakfast Essentials Light Start mixed with 1%/skim milk Atkins Protein Shake (15 gm protein version) Boost Glucose Control (16 grams protein) OWYN (20 gm protein and 180 calories version) 5. You need 79 grams of protein every day. Have a protein food with all meals and snacks. Get your protein from: lean meat, fish, eggs, low-fat dairy (cottage/ricotta cheese, jordanian/light yogurt, cheese), nuts, nut butters, beans/legumes. 6. [...] Follow up: 2-4 weeks documented in this encounterSt. Mary'[facility]09-[facility]-2023 Miscellaneous Notes* Telephone Encounter - Allie Larson APRN.CNP - 02/10/2023 11:32 AM EDT Noted, thank you * Telephone Encounter - Mya Young [facility] - 02/10/2023 10:11 AM EDT Smoking Cessation Navigation Outcome of contact: Spoke with Intervention Chosen By Patient: Other Comments: Patient quit last week. eHealth Folder Seamer/Smoking Cessation Navigator: Cece YoungUNC Health Rex documented in this encounterSt. Mary'[facility]09-13-2023 NoteHNO ID: [id number] Author: Sasha Xie RD Service: ? Author Type: Registered Dietitian Type: Progress Notes Filed: 02/10/2023 1:40 PM Note Text: Nutrition Therapy Initial Assessment I have communicated my name and active licensure. The patient?s identity and physical location were verified at the time of this visit. Either the patient or their legal malt liquors sales representative has been informed of the [...] Guidelines section of Your Guide to Surgery. [email or web address]/departments/bariatric/patient-education/vide os-guides#guides-tab 2. Drink 64 oz [...] Slim Fast Advanced Nutrition (20 grams protein) Sanborn Breakfast Essentials Light Start mixed with 1%/skim milk Atkins Protein Shake (15 gm protein version) Boost Glucose Control (16 grams protein) OWYN (20 gm protein and 180 calories version) 5. You need 79 grams of protein every day. Have a protein food with all meals and snacks. Get your protein from: lean meat, fish, eggs, low-fat dairy (cottage/ricotta cheese, jordanian/light yogurt, cheese), nuts, nut butters, beans/legumes. 6. [...] guidelines for weight loss surgery and has [employer] Insurance therefore is required to complete 0 months of Nutrition Intervention for clearance for surgery. Today is visit #1 (Rojas 02/04/2023). Patient meets the National Institutes of Health guidelines for weight loss surgery however, needs to demonstrate consistent effort in making dietary changes before being cleared for surgery. (more content not included)...[id number] History of Present illness Narrative* Sasha Xie, RD - 02/04/2023 10:26 AM EDT Nutrition Therapy Initial Assessment I have communicated my name and active licensure. The patient s identity and physical location wereverified at the time of this visit. Either the patient or their legal malt liquors sales representative has been informed of the [...] Guidelines section of Your Guide to Surgery. [email or web address]#guides-tab 2. Drink 64 oz [...] Slim Fast Advanced Nutrition (20 grams protein) [place]born Breakfast Essentials Light Start mixed with 1%/skim milk Atkins Protein Shake (15 gm protein version) Boost Glucose Control (16 grams protein) OWYN (20 gm protein and 180 calories version) 5. You need 79 grams of protein every day. Have a protein food with all meals and snacks. Get your protein from: lean meat, fish, eggs, low-fat dairy (cottage/ricotta cheese, jordanian/light yogurt, cheese), nuts, nut butters, beans/legumes. 6. [...] guidelines for weight loss surgery and has [employer] therefore is required to complete 0 [...] ,cheese, kaden, sour cream, taco sauce OR turkish chicken w/ mexical rice and corn/green beans Snack - 3x week - pretzels and nutella Beverages - water 10-12 c/day, 2-3x week lemonade/vitamin water, chocolate milk Alcohol - none/occ Vitamins/Supplements - none Restaurants, pick-up, take-out: 3-4x week - Chick File, [place], Spanish Activity: Activities of Daily Living: Active 50% of the day. 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 NoteHNO ID: [id number] Author: Katharina Blood Service: ? Author Type: ? Type: Progress Notes Filed: 02/16/2023 1:25 PM Note Text: February 01, 2023 An order has been received for Home Sleep Apnea Test (HSAT) from Allie Sales APRN.harley NGUYỄN. [facility] Staff. Visit prep complete. Comments :No The sleep study is scheduled for 02/21. Insurance: Payor: [employer] [employer]ICA[employer] / [facility] / Product Type: Medicaid / Payer/Plan Subscr Sex Relation Sub. Ins. ID Effective Group Num 1. ANTHDAYSI MEDICA* SAROJ MEMBRENO 01 Female Self [id number] [birth year] [address] Katharina [facility]09-08-2023 NoteHNO ID: [id number] Author: Cathie Ford RT(R) Service: Radiology Author Type: Top Executive Type: Progress Notes Filed: 01/30/2023 10:50 AM [...] BY: RT Enrrique(R) January 30, 2023 10:47 [id number] NoteHNO ID: [id number] Author: Norberto Malone MD Service: ? 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 [facility]23 NoteHNO ID: [id number] Author: Allie Larson APRN.DYE RANGE OPERATOR Service: ? Author Type: Nurse Practitioner [...] Characterization of diet: Unstructured and skip meals. Buckle Attaching Machine Operator of impaired eating habits:denies Eating Disorder no [...] Anxiety and depression Asthma No history of MN, COPD, +asthma, peptic ulcer disease, +GERD, dyslipidemia, [...] HEENT:: Supple, no adenopath (more content not included)...[facility]08-28-[facility] Instructions* Patient Instructions* Allie Larson APRN.DYE RANGE OPERATOR - 01/19/2023 9:16 AM EDT Darron Membreno , Thank you for completing your visit today and we welcome you to the surgical program. We are sure that you will still have some additional questions and encourage you to reach out to your care provider via [employer] OR your Patient Navigator. Patient Navigators are assigned alphabetically by patient last name. The contact information for each Navigator is listed below. Last names A-E= [email or web address] Last names F-L = [email or web address] Last names M-R= [email or web address] Last names S-Z= CathieKely Additionally, you may [...] ask for a hard copy. [email or web address]/[email or web address]?la=en Once you complete all of the requirements (testing, consultations, diet, etc) from each provider, please call [phone] and select option #5 to initiate insurance approval. Also, if you have any questions along the way, we encourage you to join our weekly Navigation webinar every Thursday from 12:00 pm - 1:00 pm. This webinar will give you an opportunity to chat with your patient navigator and learn about your specific program requirements. The link for this webinar isbelow: [email or web address] Please note scheduling information It is important to keep track of your scheduled appointments to ensure successful completion of oursurgical program. Any missed appointments can further delay your pre-surgical work-up. [facility] does offer an opt-in option for getting text message appointment reminders. Please follow the link below if you would like to opt into this service. [email or web address] [email or web address] As part of your surgical work up, [...] You may call your local [facility] to get an appointment. - Lab work- No appointment is needed for this, you may complete at any [facility].These are usually fasting labs, please be sure to fast (only water permitted) for 10-12 hours priorto the test. -Sleep Study- Please call [phone] or [phone] to get this appointment set up. -Sleep Medicine Consult- (Only needed if sleep study confirms sleep apnea) Please call [phone] [phone] to schedule an appointment. URINE TESTING AFTER [...] at least 1 month, go to any [facility] lab and submityour first nicotine screen. ?The [...] Any testing that is completed outside of [facility] will need faxed to [phone]. We look forward to working with you on this journey, Allie Larson APRN.GOPI documented in this encounterSt. Mary'[facility]08-28-[facility] History of Present illness Narrative* Allie Larson APRN.CNP - 01/19/2023 9:00 AM EDT BMI Obesity Medicine Initial Bariatric Surgery Consult January 19, 2023 Patient Summary:: Saroj Membreno is a 23 year old female who presents on January 19, 2023 for surgical evaluation and treatment of obesity. The patient is undecided on which surgical procedure to pursue with Dr. Malnoe. Primary reason for wanting obesity treatment : [...] Characterization of diet: Unstructured and skip meals. Buckle Attaching Machine Operator of impaired eating habits:denies Eating Disorder no [...] Anxiety and depression Asthma No history of MN, COPD, +asthma, peptic ulcer disease, +GERD, dyslipidemia, [...] at least 1 month, go to any [facility] lab and submityour first nicotine screen. ?The [...] and provide medicine clearance via letter in [employer]. I spent a total of 50 minutes on the date of the service which included preparing to see the patient, [id number] patient care, completing clinical documentation, obtaining and/or reviewing separately obtained history, counseling and educating the patient/family/caregiver, and ordering medications, tests, or procedures. Allie Larson, MSN, WATER TREATMENT SPECIALIST, MINING ENGINEER-C [facility]ariat[facility] Metabolic [place] [address], [address] [place] [address] documented in this encounterSt. Mary[facility]02-[facility]-2023 Evaluation note* Encounter Date Diagnosis Assessment Notes Treatment Notes Treatment Clinical Notes Jun, Laceration of right middle finger without foreign body without damage to nail, initial encounter (ICD-10 - S61.212A) Jun,Urinary tract infection without hematuria, site unspecified (ICD-10 - N39.0)Urinary tract infection (UTI) home care material was [...] your family physician for any further concerns Jun,Urinary frequency (ICD-10 - R35.0) [employer] Other 01-24-2023 Evaluation note* Encounter Date Diagnosis Assessment Notes Treatment Notes Treatment Clinical Notes May, Generalized anxiety disorder (IC D-10 - F41.1) [employer] Other 10-31-2022 Evaluation note* Encounter Date Diagnosis Assessment Notes Treatment Notes Treatment Clinical Notes Feb, Muscle pain (ICD-10 - M79.10) Feb,GAD (generalized anxiety disorder) (ICD-10 - F41.1) [employer] Other 09-05-2022 Evaluation note* Encounter Date Diagnosis Assessment Notes Treatment Notes Treatment Clinical Notes Jan, Herpes zoster without complicati on (ICD-10 - B02.9) Shingles home care material was printed Drink plenty fluids, get plenty of rest. Take the Valtrex as prescribed until gone. Follow-up with your family physician if no improvement in 2 to 3 days. [employer] Other 07-05-2022 Evaluation note* Encounter Date Diagnosis Assessment Notes Treatment Notes Treatment Clinical Notes Nov, Generalized anxiety disorder (IC D-10 - F41.1) Today during the appointment we discussed depression and emotions. We talked about treatment options that include both counseling and medication interventions. When we first start treatment, it is common to have to be seen more frequently as we figure out the best treatment regimen that fits you asan individual. We will be able to space out appointments more once we find what works for you. If at any time you feel like your symptoms have increased in severity or you want to hurt yourself, please never hesitate to contact us and we will get you in to be seen. Also always know the [facility] Emergency Number is 24 hours a day available, even on holidays there is someone you can reach out to. Also we will check other labs yearly to screen for other health issues. Please remember we are a team and your opinion is very important in all of your healthcare decisions Nov,Insomnia, unspecified type (ICD-10 - G47.00)Increased dose as discussed. [employer] Other 06-20-2022 Evaluation note* Encounter Date Diagnosis Assessment Notes Treatment Notes Treatment Clinical Notes Oct, Generalized anxiety disorder (IC D-10 - F41.1) Increased medication as discussed. Oct,Herpes zoster without complication (ICD-10 - B02.9)Take medicatio as directed. Tylenol or motrin for pain [employer] Other 05-23-2022 Evaluation note* Encounter Date Diagnosis Assessment Notes Treatment Notes Treatment Clinical Notes September, PILO (generalized anxiety disorde r) (ICD-10 - F41.1) Today during the appointment we discussed depression and emotions. We talked about treatment options that include both counseling and medication interventions. When we first start treatment, it is common to have to be seen more frequently as we figure out the best treatment regimen that fits you asan individual. We will be able to space out appointments more once we find what works for you. If at any time you feel like your symptoms have increased in severity or you want to hurt yourself, please never hesitate to contact us and we will get you in to be seen. Also always know the [facility] Emergency Number is 24 hours a day available, even on holidays there is someone you can reach out to. Also we will check other labs yearly to screen for other health issues. Please remember we are a team and your opinion is very important in all of your healthcare decisions September,Insomnia, unspecified type (ICD-10 - G47.00)This medication can help with sleep and anxiety [employer] Other 03-27-2022 Evaluation note* Encounter Date Diagnosis Assessment Notes Treatment Notes Treatment Clinical Notes Jul, Muscle pain (ICD-10 - M79.10) [employer] Other 01-28-2022 Evaluation note* Encounter Date Diagnosis Assessment Notes Treatment Notes Treatment Clinical Notes May, Encounter for screening for othe r viral diseases (ICD-10 - Z11.59) May,ther Additional time spent conducting pre-visit phone call, screening for symptoms, instructions on social distancing, application and removal of PPE, and cleaning of examination room, equipment and supplies was preformed. Patient education given for testing methodology and results. Patient care instructions given in writting by [facility] document. [employer] Other 2022 Evaluation note* Encounter Date Diagnosis Assessment Notes Treatment Notes Treatment Clinical Notes May, PILO (generalized anxiety disorde r) (ICD-10 - F41.1) May,Generalized anxiety disorder (ICD-10 - F41.1) May,Muscle pain (ICD-10 - M79.10) [employer] Other 11-06-2021 Evaluation note* Encounter Date Diagnosis Assessment Notes Treatment Notes Treatment Clinical Notes Mar, Contact with and (stout spected) exposure to other viral communicable diseases (ICD-10 - Z20.828) Even though COVID RAPID test is NEGATIVE, I am highly suspicious at this time you may be positive due to the symptoms. Recommend patient follow Quarantine guidelines until you follow up with PCP.. Recommend OTC medication such as Mucinex, Sea salt nasal spray, Cepecol, Tylenol, Zyrtec, as they can help with symptoms Mar,Other Additional time spent conducting pre-visit phone call, screening for symptoms, instructions on social distancing, application and removal of PPE, and cleaning of examination room, equipment and supplies was preformed. Patient education given for testing methodology and results. Patient care instructions given in writting by [facility] document. [employer] Other 10-14-2021 Evaluation note* Encounter Date Diagnosis Assessment Notes Treatment Notes Treatment Clinical Notes Feb, Generalized anxiety disorder (IC D-10 - F41.1) resent script Feb,uncture wound without foreign body of lip, initial encounter (ICD- 10 - S01.531A) take medication as directed. Recommend taking out piercing and possibly using different type made of different metal [employer] Other 10-05-2021 Evaluation note* Encounter Date Diagnosis Assessment Notes Treatment Notes Treatment Clinical Notes Feb, PILO (generalized anxiety disorde r) (ICD-10 - F41.1) Today during the appointment we discussed depression and emotions. We talked about treatment options that include both counseling and medication interventions. When we first start treatment, it is common to have to be seen more frequently as we figure out the best treatment regimen that fits you asan individual. We will be able to space out appointments more once we find what works for you. If at any time you feel like your symptoms have increased in severity or you want to hurt yourself, please never hesitate to contact us and we will get you in to be seen. Also always know the [facility] Emergency Number is 24 hours a day available, even on holidays there is someone you can reach out to. Also we will check other labs yearly to screen for other health issues. Please remember we are a team and your opinion is very important in all of your healthcare decisions [employer] Other Evaluation noteNort [employer] Other Evaluccauk noteNo assessment information available [facility] Work Phone: evaluation note* Diagnosis Pre-op evaluation- Primary Preoperative examination, unspecified Class 3 severe obesity with serious comorbidity and body mass index (BMI) of 40.0 to 44.9 in adult,unspecified obesity type (HCC) Vapes nicotine containing substance Marijuana smoker Cannabis abuse, unspecified [facility] Diagnosis Body mass index (BMI) 40.0-44.9, adult (HCC)- Primary Dietary counseling and surveillance Dietary surveillance and counseling [facility]* Diagnosis Pre-op evaluation Preoperative examination, unspecified Class 3 severe obesity with serious comorbidity and body mass index (BMI) of 40.0 to 44.9 in adult,unspecified obesity type (HCC) documented in this encounter [facility] note* Diagnosis Pre-op evaluation Preoperative examination, unspecified Class 3 severe obesity with serious comorbidity and body mass index (BMI) of 40.0 to 44.9 in adult,unspecified obesity type (HCC) documented in this encounter [facility] note* Diagnosis Pre-op evaluation Preoperative examination, unspecified Class 3 severe obesity with serious comorbidity and body mass index (BMI) of 40.0 to 44.9 in adult,unspecified obesity type (HCC) [facility]* Diagnosis Onset Date Resolution Status Right otitis media noneactive [facility] Work Phone: evaluation note* Diagnosis Onset Date Resolution Status Right otitis media noneactiveRight ankle sprainacute [facility] Work Phone: evaluation note* Diagnosis Onset Date Resolution Status Right ankle sprain acute [facility] Work Phone: Evaluation note* Diagnosis Onset Date Resolution Status Right ankle sprain acuteAcute pharyngitisacute [facility] Work Phone: evaluation note* Diagnosis Onset Date Resolution Status Right ankle sprain acuteAcute pharyngitisacuteVaginal dischargeacute [facility] Work Phone: evaluation note* Diagnosis Class 3 severe obesity with serious comorbidity and body mass index (BMI) of 40.0 to 44.9 in adult,unspecified obesity type (HCC) [facility]* Diagnosis Well woman exam with routine gynecological exam Routine gynecological examination documented [facility] this encounter [facility]* Diagnosis Encounter for supervision of normal first in first trimester ([facility]) Encounter for drug screening Encounter for screening for chromosomal anomalies ([facility]) Screening for genetic disease carrier status documented in this encounter [facility]* Diagnosis Encounter for supervision of normal first in first trimester ([facility]) - Primary 13 weeks gestation of ([facility]) Screen for sexually transmitted diseases Screening examination for venereal disease Herpes simplex type 2 infection complicating , first trimester ([facility]) Severe obesity due to excess calories affecting in first trimester ([facility]) Screening for malignant neoplasm of cervix Screening for malignant neoplasm of the cervix Nausea and vomiting during ([facility]) [facility]* Diagnosis First trimester ([facility]) state, incidental 12 weeks gestation of ([facility]) documented [facility]* Diagnosis Vaginal discharge Leukorrhea, not specified as infective Second trimester ([facility]) state, incidental 15 weeks gestation of ([facility]) Nausea and vomiting in ([facility]) Unspecified vomiting of , unspecified as to episode of care [facility]* Diagnosis 15 weeks gestation of ([facility]) Second trimester ([facility]) state, incidental Blood pressure check Screening for hypertension Nonintractable headache, unspecified chronicity pattern, unspecified headache type Nausea Nausea alone [facility]* Diagnosis Screening, , for anatomic survey ([facility]) Encounter for anatomic survey Second trimester ([facility]) state, incidental 19 weeks gestation of ([facility]) documented in this encounter [facility] general Narrative - Reported* Type Description Date Medical History ADHD Medical HistorysyncopeMedical HistoryanxietyMedical HistorylupusMedical History back painMedical Historychronic depressionMedical HistoryPTSDSurgical History wisdom teethHospitalization HistoryNo Hospitalization history information [employer] Other History general Narrative - Reported* Type Description Date Medical History ADHD Medical HistorysyncopeMedical HistoryanxietyMedical HistorylupusMedical History back painMedical Historychronic depressionMedical HistoryPTSDSurgical History wisdom teethHospitalization HistoryNo know Hospitalization history [employer] Other History general Narrative - ReportedNoHolganix Other Reason for referral (narrative)* Diagnostic Procedure Only (Routine) - Pending ReviewSpecialtyDiagnoses / ProceduresReferred By ContactReferred To [facility] Diagnoses Pre-op evaluation Class 3 severe obesity with serious comorbidity and body mass index (BMI) of 40.0 to 44.9 in adult,unspecified obesity type (HCC) Procedures HOME SLEEP APNEA TEST (HSAT) SLEEP STD AIRFLOW HRT RATE&O2 SAT EFFORT UNATT Allie Larson APRN.GOPI [address] [id number] [facility] [place] [address] [place], [place] [id number] Referral IDStatusReasonDunnegan DateExpiration DateVisits RequestedVisits [id number] Review Auto-Generated Referral * Diagnostic Procedure Only (Routine) - Pending ReviewSpecialtyDiagnoses / ProceduresReferred By ContactReferred To [facility] Diagnoses Pre-op evaluation Class 3 severe obesity with serious comorbidity and body mass index (BMI) of 40.0 to 44.9 in adult,unspecified obesity type (HCC) Procedures US ABD RIGHT UPPER QUADRANT US ABDOMINAL REAL TIME W/IMAGE LIMITED Allie Larson APRN.DYE RANGE OPERATOR [address] [place] [address] [place] [address] Referral IDStatusReasonDunnegan DateExpiration DateVisits RequestedVisits [id number] Review Auto-Generated Referral * Outpatient Procedure (Routine) - Pending ReviewSpecialtyDiagnoses / Procedures Referred By ContactReferred To [facility] Diagnoses Pre-op evaluation Class 3 severe obesity with serious comorbidity and body mass index (BMI) of 40.0 to 44.9 in adult,unspecified obesity type (HCC) Procedures ECG COMPLETE ECG ROUTINE ECG W/LEAST 12 LDS W/I&R Allie Larson APRN.DYE RANGE OPERATOR [address] [place] [address] [facility] [place] [address] [place] [address] [id number] Referral IDStatusReasonStart DateExpiration DateVisits RequestedVisits [id number] Review Auto-Generated Referral [facility] for referral (narrative)* Diagnostic Procedure Only (Routine) - ClosedSpecialtyDiagnoses / ProceduresReferred By ContactReferred To ContactUS IMAGING Diagnoses Pre-op evaluation Class 3 severe obesity with serious comorbidity and body mass index (BMI) of 40.0 to 44.9 in adult,unspecified obesity type (HCC) Procedures US ABD RIGHT UPPER QUADRANT US ABDOMINAL REAL TIME W/IMAGE LIMITED Allie Larson APRN.CNP [address] [id number] [facility] [place] [address] Referral IDStatusReasonStart DateExpiration DateVisits RequestedVisits [id number] Auto-Generated Referral [facility] for referral (narrative)* Outpatient Procedure (Routine) - ClosedSpecialtyDiagnoses / ProceduresReferred By ContactReferred To Contact [facility] Diagnoses Class 3 severe obesity with serious comorbidity and body mass index (BMI) of 40.0 to 44.9 in adult,unspecified obesity type (HCC) Procedures EGD DIAGNOSTIC ESOPHAGOGASTRODUODENOSCOPY [place] [address] [address] [facility] [place] [address] [place] [address] Referral IDStatusReasonSthaverford DateExpiration DateVisits RequestedVisits [id number] Auto-Generated Referral / [facility] for referral (narrative)No reason for referral information availablePromedica [facility] Work Phone: [facility] for visit Narrative* Diagnostic Procedure Only (Routine) - ClosedSpecialtyDiagnoses / ProceduresReferred By ContactReferred To ContactUS IMAGING Diagnoses Pre-op evaluation Class 3 severe obesity with serious comorbidity and body mass index (BMI) of 40.0 to 44.9 in adult,unspecified obesity type (HCC) Procedures US ABD RIGHT UPPER QUADRANT US ABDOMINAL REAL TIME W/IMAGE LIMITED Allie Larson, [place].DYE RANGE OPERATOR [address] [place] [address] Us Imaging [facility] Referral IDStatusReasonStart DateExpiration DateVisits RequestedVisits [id number] Auto-Generated Referral / [facility] Narrative* Outpatient Procedure (Routine) - ClosedSpecialtyDiagnoses / ProceduresReferred By ContactReferred To Contact [facility] Diagnoses Class 3 severe obesity with serious comorbidity and body mass index (BMI) of 40.0 to 44.9 in adult,unspecified obesity type (HCC) Procedures EGD DIAGNOSTIC ESOPHAGOGASTRODUODENOSCOPY TRANS[place] [address] [address] [facility] [place] [address] [place] [address] Referral IDStatusReasonStart DateExpiration DateVisits RequestedVisits [id number] Auto-Generated Referral [facility] Chief Complaint and Reason for Visit Chief Complaint abd pain Urinary frequency Chief Complaint Ear pain Reason for Visit Right otitis media Chief Complaint Ear pain Right ankle pain with injury S99.911A - Unspecified injury of right ankle, initReason for VisitRight otitis media Right ankle sprain Chief Complaint Right ankle pain wit h injury S99.911A - Unspecified injury of right ankle, init sore throat on left sideReason for VisitRight ankle sprain Chief Complaint Right ankle pain wit h injury S99.911A - Unspecified injury of right ankle, init sore throat on left side Std checkReason for VisitRight ankle sprain Acute pharyngitis Chief Complaint Right ankle pain wit h injury S99.911A - Unspecified injury of right ankle, init sore throat on left side Std check Vaginal DischargeReason for VisitRight ankle sprain Acute pharyngitis Vaginal discharge Chief [...] FOR VISIT (unrecogniz ed section and content) ReasonCommentsObesityNew PatientSurgical. Online seminar has been completed ReasonCommentsSmoking CessationReasonCommentsPatient EducationAssessmentReason CommentsCardiology Follow UpSpecialtyDiagnoses / ProceduresReferred By Contact [facility] Diagnoses Pre-op evaluation Class 3 severe obesity with serious comorbidity and body mass index (BMI) of 40.0 to 44.9 in adult,unspecified obesity type (HCC) Procedures ECG COMPLETE ECG ROUTINE ECG W/LEAST 12 LDS W/I&R Allie Larson, WATER TREATMENT SPECIALIST.DYE RANGE OPERATOR [address] [place] [address] [facility] [place] [address] [place] [address] Referral IDStatusReasonStart DateExpiration DateVisits RequestedVisits [id number] Auto-Generated Referral /[id number] Gen RMPReasonCommentsGynecologic Exam ReasonCommentsInitial VisitNurse VisitReasonCommentsRoutine VisitPt presents for 13w1d pnc. -glu/-pro. Feeling nauseous daily with vomiting daily.ReasonCommentsRoutine VisitPt present today as a NEW OB TRANSFER patient. Pt transferred from Dr. Browning.ReasonCommentsRoutine Visit ReasonCommentsRoutine Visit Care Teams (unrecognized sec tion and content) Team Status: Active Member Role Status Dates NON STAFF Primary Care Provider Active Team Status: Inactive Member Role Status Dates NON STAFF Primary Care Provider Active Start: September 16, 2023 End: September 15leo Enrique NP-CAttenarmin ProviderActiveStart: September 16, 2023 End: September 16, 2023 Team Status: Inactive Member Role Status Dates NON STAFF Primary Care Provider Active Radhika Enrique NP-CAttending ProviderActive Team Status: Inactive Member Role Status Dates NON STAFF Primary Care Provider Active ZAYRA Worthy-BCEmergency ProviderActiveTeam MemberRelationship SpecialtyStart DateEnd Date Maria R Disla CNP [address] [place] [phone] [facility]01/07/23Team MemberRelationshipSpecialtyStart DateEnd Date Maria R Disla CNP [phone] [facility]01/07/23Team MemberRelationshipSpecialtyStart DateEnd Date Maria R Disla CNP [address] [place] [address] [facility]01/07/23Team MemberRelationshipSpecialtyStart DateEnd Date Maria R Disla CNP [address] [phone] ReferringFami Medicine01/07/23Team MemberRelationshipSpecialtyStart DateEnd Date Maria R DislaGOPI [address] [place] [address] ReferringFabaystate m[facility] Medicine01/07/23Team MemberRelationshipSpecialtyStart DateEnd Date Maria R DislaGOPI [address] [place] [address] ReferringFabaystate [facility] Medicine01/07/23Team MemberRelationshipSpecialtyStart DateEnd Date Maria R DislaGOPI [address] [place] [address] [facility]erring[facility] Medicine01/07/23 Team Status: Inactive Member Role Status Dates NON STAFF Primary Care Provider Active Start: November 13, 2023 End: November 12manda M Roque , APRNAttending ProviderActiveStart: November 13, 2023 End: November 13, 2023 Team Status: Active Member Role Status Dates NON STAFF Primary Care Provider Active Start: November 13, 2023 Manjula M Roque , APRNAttending ProviderActiveStart: November 13, 2023 Team Status: Inactive Member Role Status Dates NON STAFF Primary Care Provider Active Start: November 13, 2023 End: November 12manda M Roque - [facility] , APRNAttending ProviderActiveStart: November 13, 2023 End: November 13, 2023 Team Status: Inactive Member Role Status Dates NON STAFF Primary Care Provider Active Start: January 20, 2024 End: January 19manda M Roque - UC , APRNAttending ProviderActiveStart: January 20, 2024 End: January 20, 2024 Team Status: Inactive Member Role Status Dates NON STAFF Primary Care Provider Active Start: February 02, 2024 End: February 02, 2024Glo Alas , APRNAttending ProviderActiveStart: February 02, 2024 End: February 02, 2024 Team Status: Inactive Member Role Status Dates Glo Alas APRN Attending Provider Active Start: February 02, 2024 End: February 02, 2024Team MemberRelationshipSpecialtyStart DateEnd Date Kromer, Karly PCP - [facility]7/06/17Team MemberRelationshipSpecialtyStart DateEnd Date Kromer, Karly PCP - [facility]7Team MemberRelationshipSpecialtyStart DateEnd Date Kromer, Karly PCP - [facility]7Team MemberRelationshipSpecialtyStart DateEnd Date Kromer, Karly PCP - [facility]7Team MemberRelationshipSpecialtyStart DateEnd Date Kromer, Karly PCP - [facility]7Team MemberRelationshipSpecialtyStart DateEnd Date Kromer, Karly PCP - [facility]7Team MemberRelationshipSpecialtyStart DateEnd Date Kromer, Karly PCP - [facility]7Team MemberRelationshipSpecialtyStart DateEnd Date Kromer, Karly PCP - [facility]7 Team Status: Inactive Member Role Status Dates NON STAFF Primary Care Provider Active Start: November 09, 2024 End: November 09Tabitha Velasco ProviderActiveStart: November 09, 2024 End: November 09, 2024 Team Status: Inactive Member Role Status Dates NON STAFF Primary Care Provider Active Start: November 15, 2024 End: November 15Satish Horne ProviderActiveStart: November 15, 2024 End: November 15, 2024 Team Status: Inactive Member Role Status Dates NON STAFF Primary Care Provider Active Start: February 06, 2025 End: February 07, 2025Ozzie Vega ProviderActiveStart: February 06, 2025 End: February 07, 2025Team MemberRelationshipSpecialtyStart DateEnd Date KromerJakobKarly PCP - [facility]11/23/23Team MemberRelationshipSpecialtyStart DateEnd Date Kromer, Karly PCP - [facility]11/23/23Team MemberRelationshipSpecialtyStart DateEnd Date Kromer, Karly PCP - [facility]11/23/23Team MemberRelationshipSpecialtyStart DateEnd Date Kromer, Karly PCP - [facility]11/23/23 Goals (unrecognized section and content) Goals may be documented in a n alternate section INFORMATION SOURCE (unrecogn ized section and content) DATE CREATED AUTHOR 09/27/2022 [facility] DATE CREATED AUTHOR AUTHOR'S ORGANIZ ATION 02/11/2023 [facility] DATE CREATED AUTHOR AUTHOR'S ORGANIZ ATION 03/13/2023 [facility] DATE CREATED AUTHOR AUTHOR'S ORGANIZ ATION 04/07/2023 [facility] DATE CREATED AUTHOR AUTHOR'S ORGANIZ ATION 03/25/2024 [facility] DATE CREATED AUTHOR AUTHOR'S ORGANIZ ATION 03/26/2024 [facility] DATE CREATED AUTHOR AUTHOR'S ORGANIZ ATION 03/28/2024 [facility] DATE CREATED AUTHOR AUTHOR'S ORGANIZ ATION 02/17/2025 [facility] DATE CREATED AUTHOR AUTHOR'S ORGANIZ ATION 03/16/2025 [facility] EPIC Source Comments (unrecognize d section and content) In the event this informatio n is protected by the Federal Confidentiality of Alcohol and Drug Abuse Patient Records regulations: The Federal rules restrict any use of the information to criminally investigate or prosecute any alcohol or drug abuse patient.[facility] CampusIn the event this information is protected by the Federal Confidentiality of Alcohol and Drug Abuse Patient Records regulations: The Federal rules restrict any use of the information to criminally investigate or prosecute any alcohol or drug abuse patient.[facility] CampusIn the event this information is protected by the Federal Confidentiality of Alcohol and Drug Abuse Patient Records regulations: The Federal rules restrict any use of the information to criminally investigate or prosecute any alcohol or drug abuse patient.[facility] CampusIn the event this information is protected by the Federal Confidentiality of Alcohol and Drug Abuse Patient Records regulations: The Federal rules restrict any use of the information to criminally investigate or prosecute any alcohol or drug abuse patient.[facility] CampusIn the event this information is protected by the Federal Confidentiality of Alcohol and Drug Abuse Patient Records regulations: The Federal rules restrict any use of the information to criminally investigate or prosecute any alcohol or drug abuse patient.[facility] CampusIn the event this information is protected by the Federal Confidentiality of Alcohol and Drug Abuse Patient Records regulations: The Federal rules restrict any use of the information to criminally investigate or prosecute any alcohol or drug abuse patient.[facility] CampusIn the event this information is protected by the Federal Confidentiality of Alcohol and Drug Abuse Patient Records regulations: The Federal rules restrict any use of the information to criminally investigate or prosecute any alcohol or drug abuse patient.[facility] CampusIn the event this information is protected by the Federal Confidentiality of Alcohol and Drug Abuse Patient Records regulations: The Federal rules restrict any use of the information to criminally investigate or prosecute any alcohol or drug abuse patient.[facility] CampusIn the event this information is protected by the Federal Confidentiality of Alcohol and Drug Abuse Patient Records regulations: The Federal rules restrict any use of the information to criminally investigate or prosecute any alcohol or drug abuse patient.[facility] FOR RECORDS PERTAINING TO PATIENTS WHO ARE [...] BE BASED ON THE PRIMARY CLINICAL RECORDS. [facility] [employer] [facility]. provides no warranty or guarantee of the accuracy or completeness of information in this document.
--- OUTSIDE RECORDS SUMMARY | 2025-03-28 22:21 | XMS_ITS | Clinical Summary ---
Author Organization [facility] Address [address] [place] [address] Care Team Providers Care Geospatial Engineer Name Role Phone Maria R Disla GENETIC COUNSELLOR Unavailable [phone] Allergies No known active allergies Medications MedicationSigDispense QuantityRefillsLast FilledStart DateEnd DateStatus ARIPiprazole (ABILIFY) 5 mg tablet Take 1 tablet by mouth once daily.Active Benzoyl Peroxide 10 % external wash Apply 1 Application to affected area once daily.09/22/2022ctive clindamycin (CLEOCIN) 1 % external solution Apply 1 Application to affected area once daily.10/27/2022ctive etonogestrel (NEXPLANON) subdermal implant 68 mg 1 Each by SUBDERMAL route.11/17/2022ctive spironolactone (ALDACTONE) 50 mg tablet Take 1 tablet by mouth once daily.Active doxycycline hyclate (VIBRAMYCIN) 100 mg capsule Take 1 capsule by mouth once daily.09/22/2022ctive Active Problems ProblemNoted DateDiagnosed DateGeneralized anxiety mcfegbxd72 Obesity, Class III, BMI >= 40083125Adxzhsdyem46/28/4577VLGN03/28/2023sthma 01/19/2023 Immunizations ImmunizationAdministration DatesNext DueHaemophilus influenzae b (Hib PRP-T) vaccine, 4-dose series (ACTHIB, HIBERIX)06/27/2002Haemophilus influenzae b- hepatitis B (Hib-HepB) vaccine (COMVAX)2001,2001,2001 diphtheria tetanus pertussis (DTaP) vaccine, pediatric (INFANRIX)06/27/2002 diphtheria tetanus pertussis (DTaP) vaccine, pediatric, 5 pertussis antigens (DAPTACEL)01/16/2005diphtheria tetanus pertussis (DTaP) vaccine, unspecified /31/2002,2001,2001hepatitis A (HepA) vaccine, 2-dose series, ped/adol (HAVRIX-PEDS, VAQTA-PEDS)07/07/2013,03/01/2008human papillomavirus (HPV9) vaccine, 9 valent (GARDASIL 9)03/16/2013,10/08/2011, 07/03/2011influenza (IIV3) vaccine, trivalent (AFLURIA, FLULAVAL, FLUVIRIN, FLUZONE)02/21/2014,05/20/2005,04/11/2005influenza (IIV4) vaccine, age 6 mo - 64 yr, quadrivalent, PF (AFLURIA, FLUARIX, FLULAVAL, FLUZONE)03/16/2013influenza (IIV4) vaccine, quadrivalent (AFLURIA, FLULAVAL, FLUZONE)04/07/2020,03/14/2019 measles mumps rubella (MMR) vaccine (M-M-R II, PRIORIX)01/16/2005,02/02/2002 meningococcal (MenACWY-CRM) vaccine, quadrivalent (MENVEO)09/13/2018 meningococcal (MenACWY-D) vaccine, quadrivalent (MENACTRA)07/07/2013pneumococcal (PCV7) vaccine, 7 valent (PREVNAR 7)2001,2001poliovirus (IPV) vaccine, inactivated (IPOL)01/16/2005,2001,2001,2001tetanus diphtheria pertussis (Tdap) vaccine, age 7+ yr (ADACEL, BOOSTRIX)07/07/2022, 07/07/2013varicella (HUONG) vaccine (VARIVAX)03/01/2008,02/02/2002 Family History Medical HistoryRelationCommentsAnesthesia ProblemsNo Family HistoryBlood ClotsNo Family HistoryHeart AttackNo Family History Social History Tobacco UseTypesPacks/DayYears UsedDateSmoking Tobacco: NeverSmokeless Tobacco: Never Tobacco Cessation:Counseling Given: Not Answered Comments:vaping- Quit 02/02/23 Alcohol UseStandard Drinks/WeekCommentsYes0 (1 standard drink = 0.6 oz pure alcohol)once a monthArea Deprivation IndexAnswerDate RecordedNational Score (1- 100), lower number is lower sqqh279201/19/2023State Score (1-10), lower number is lower pdxp2393Data from: https://www.neighborhoodatlas.medicine.[facility].edu/. Last address used for [address] [facility] 01/19/2023CommentsNoSex and Gender Information ValueDate RecordedSex Assigned at LpqhuCzwmod32/26/2023 7:46 PM EDTLegal Sex Aehmzr1601/07/2023 11:04 AM EDTGender RpnxdjnzEeeljv64/26/2023 7:46 PM EDTSexual IfhnpvahkbwRxieewyj44/26/2023 7:46 PM EDT Last Filed Vital Signs Vital SignReadingTime TakenCommentsBlood Nyfqgnxk122/7210 10:40 AM EDT Pafty408803/03/2023 10:45 AM EDTTemperature--Respiratory Xrtt9317 10:45 AM EDTOxygen Llicdupvkw253%03/03/2023 10:45 AM EDTInhaled Oxygen Concentration-- Nfekza564.4 kg (250 lb)02/04/2023 10:25 AM EDTdocumented at visit 01/30/23Height 162.6 cm (5' 4 )02/04/2023 10:25 AM EDTmeasured 01/19/23Body Mass Index42.91 02/04/2023 10:25 AM EDT Plan of Treatment Health MaintenanceDue DateLast DoneCommentsPeds To Adult Transition Initial Lczqxrogwr72/13/2013Peds To Adult Transition Annual Icrcgvqqtz51/13/2015nnual PCP Team Chronic Disease Visit2019HIV Bzmwpmedv62/13/2019Hepatitis C Yfuegmwxy08/13/2019Cervical Cancer Emvfshaow51/13/2022Covid-19 Vaccine (1 2024- season)2025Influenza Vaccine (#1), 03/14/2019, 02/21/2014, Additional history existsDTaP,Tdap,Td Vaccine (8 - Td or Tdap) , 07/07/2013, 01/16/2005, Additional history existsHepatitis B XbtiaixQsbvkctlp21/31/2002, 2001, 2001HPV VaccineCompleted 03/16/2013, 10/08/2011, 07/03/2011 Insurance Care Teams Team MemberRelationshipSpecialtyStart DateEnd Date Maria R Disla CNP [address] [place], [place] [address] [address] ReferringFamily [facility]01/07/23
--- OUTSIDE RECORDS SUMMARY | 2025-03-28 22:21 | XMS_ITS | Clinical Summary ---
Author Organization [facility] Healthcare Address [address] [place] [address] Care Team Providers Care Quality Assurance Technician Name Role Phone Karly Baca Unavailable Unavailable Allergies No known active allergies Medications MedicationSigDispense QuantityRefillsLast FilledStart DateEnd DateStatus Vit-Fe Fumarate-FA ( Vitamins) 28-0.8 MG tablet Indications:Encounter for supervision of normal first in first trimester ([facility])Take 1 tablet by mouth Daily 30 tablet 1107//[id number]/6Active magnesium oxide (Mag-Ox) 400 MG tablet Indications:Nausea and vomiting in ([facility])Take 1 tablet (400 mg) by mouth Daily 30 tablet 609/16/362698/6Active ondansetron (Zofran) 4 MG tablet Indications:Nausea and vomiting in ([facility])Take 1 tablet (4 mg) by mouth every 6 (six) hours if needed for nausea or vomiting for up to 120 doses Take 1 tablet by mouth every 6 hours as needed for nausea. 30 tablet 5Active promethazine (Phenergan) 12.5 MG tablet Indications:Nonintractable headache, unspecified chronicity pattern, unspecified headache type,NauseaTake 2 tablets (25 mg) by mouth every 6 (six) hours if needed for nausea or vomiting for up to 30 doses Take 1 tablet by mouth every 6 hours as needed for nausea. 30 tablet 5Active Encounters DateTypeDepartmentCare YykaPwckyzpuqru70/04/2025Patient Outreach [facility] [address] [place] [address] Ira Rahman LPN 03/15/2025Telephone [facility] [address] [place] [address] Tatiana Harrell MA 03/13/2025 11:00 AM EDTAncillary Procedure [facility] [address] [place] [address] Screening, , for anatomic survey ([facility])03/07/2025Patient Outreach [facility] [address] [place] [address] Ira Rahman, DIRECTOR DIETETICS DEPARTMENT 03/06/2025 10:00 AM EDTRoutine [facility] [address] [place] [address] Rodrigo Guzman, Screening, , for anatomic survey ([facility]); Second trimester ([facility]); 19 weeks gestation of ([facility])5Bamboo flowsheet [facility] [address] [place] [address] Rodrigo Guzman, 03/03/2025bstract [facility] [address] [place] [address] Ira Rahman, DIRECTOR DIETETICS DEPARTMENT 03/03/2025bstract [facility] [address] [place] [address] Rodrigo Guzman DO 02/09/2025 2:40 PM EDTRoutine [facility] [address] [place] [address] Ira Jensen PA 15 weeks gestation of ([facility]); Second trimester ([facility]); Blood pressure check; Nonintractable headache, unspecified chronicity pattern, unspecified headache type; Rofpgm765Bamboo flowsheet [facility] [address] [place] [address] Ira Jensen PA 02/07/2025 9:50 AM EDTRoutine [facility] [address] [place] [address] Ira Jensen PA Vaginal discharge; Second trimester ([facility]); 15 weeks gestation of ([facility]); Nausea and vomiting in ([facility])02/07/2025External Result Encounter [facility] External Department Unsolicited Ira Jensen PA 02/07/2025amboo flowsheet [facility] [address] [place] [address] Ira Jensen PA 01/30/2025bstract [facility] [address] [place] [address] Rodrigo Guzman, DO 01/30/2025bstract [facility] [address] [place] [address] Rodrigo Guzman, 01/27/2025bstract [facility] [address] [place] [address] Tatiana Harrell MA 01/19/2025 8:50 AM EDTInitial [facility] [address] [place] [address] Rodrigo Guzman, DO [place]: 74n6c2901/19/2025bstract [facility] [address] [place] [address] Rodrigo Guzman, 01/19/2025bstract [facility] [address] [place] [address] Rodrigo Guzman, 01/19/2025linisync Result Encounter NOMS External Department Unsolicited Carmita Will NP 5Bamboo flowsheet [facility] [address] [place] [address] Rodrigo Guzman DO from Last 3 Months Family History Medical HistoryRelationNameCommentsADD / ADHDBrother 1Autism (HCC)Brother 1Heart murmurBrother 1Learning disabilitiesBrother 1No Known ProblemsBrother 2 HyperlipidemiaFatheron father's side of familyNo Known ProblemsMaternal GrandfatherAsthmaMaternal GrandmotherHeart diseaseMaternal Grandmotherepilepsy MotherUterine cancerMother's SisterNo Known ProblemsPaternal GrandfatherNo Known ProblemsPaternal GrandmotherNo Known ProblemsSisterRelationNameStatusComments Brother 1AliveBrother 2AliveFatherAliveMaternal GrandfatherMaternal Grandmother MotherDeceasedMother's SisterPaternal GrandfatherPaternal GrandmotherSisterAlive x1 Social History Tobacco UseTypesPacks/DayYears UsedDateSmoking Tobacco: NeverSmokeless Tobacco: Never Tobacco Cessation:Counseling Given: Not Answered Alcohol UseStandard Drinks/WeekCommentsNot Currently0 (1 standard drink = 0.6 oz pure alcohol)caffeine intake: nonePHQ-2AnswerDate RecordedPatient Health Questionnaire-2 Msaas82705/28/2024Estimated Date of DeliveryCommentsYes 6Based on UltrasoundSex and Gender InformationValueDate RecordedSex Assigned at BirthNot on fileLegal RygDpkyqm81/04/2023 12:17 PM EDTGender IdentityNot on fileSexual OrientationNot on file Last Filed Vital Signs Vital SignReadingTime TakenCommentsBlood Vfbqhbdb688/7003/06/2025 10:04 AM EDT Pulse--Temperature--Respiratory Rate--Oxygen Saturation--Inhaled Oxygen Concentration--Dksvus358 kg (297 lb 4 oz)03/06/2025 10:04 AM BSLLkjjxf689 cm (5' 3 )12/08/2022 2:02 PM EDTBody Mass Index52.66012/08/2022 2:02 PM EDT Plan of Treatment DateTypeDepartmentCare Team (Latest Contact Info)Afbhuezsyoa52/10/2025 11:00 AM ESTAncillary Procedure [facility] [address] [place] [address] 04/03/2025 11:30 AM ESTRoutine [facility] [address] [place] [address] Ira Jensen PA [address] [place], [place] [phone] Health MaintenanceDue DateLast DoneCommentsPneumococcal Vaccine: Pediatrics (0 to 5 Years) and At-Risk Patients (6 to 64 Years) (1 of 2 - PCV)01/05/2020COVID- 19 Vaccine (1 - 2023- season)2025Influenza Vaccine (#1)2025 04/07/2020, 03/14/2019, 02/21/2014, Additional history exists Goals GoalPatient Goal TypeAssociated ProblemsRecent ProgressPatient-Stated?Author Reminders Care PlanOB RemindersDarlyn Hudson RN Procedures Procedure NamePriorityDate/TimeAssociated DiagnosisCommentsUS OB 14+ WEEKS ANATOMY KVVBGaekbbe95/20/2025 12:09 PM EDT Screening, , for anatomic survey ([facility]) POCT URINALYSIS UULVFEVSFhbizcy82/13/2025 10:09 AM EDT 19 weeks gestation of ([facility]) POCT URINALYSIS JTRYTPCPDiqibso08/18/2025 2:55 PM EDT 15 weeks gestation of ([facility]) Second trimester ([facility]) RECURRENT VAGINITIS (HTRX)Qqlvong4802/07/2025 11:58 AM EDT POCT URINALYSIS ZVNFDSFFKglsfoo52/16/2025 10:32 AM EDT Vaginal discharge MLR HEMOGLOBIN R3VOtugefj61/ 9:59 AM EDT BOX CLYXHstykob33/28/2025 9:59 AM EDT POCT URINALYSIS DENBJNXDNjfjkso94/28/2025 9:06 AM EDT First trimester ([facility]) from Last 3 Months Results * US OB 14+ weeks anatomy [...] Burt Justice MD Authorizing ProviderResult TypeResult StatusCorey Thomas [facility] OB US PROCEDURES Edited Result - Final * (ABNORMAL) POCT urinalysis dipstick manually resulted (03/06/2025 10:09 AM EDT) Only the most recent of4 resultswithin the time period is included. ComponentValueRef RangeTest MethodAnalysis TimePerformed AtPathologist Signature Color, UAYellowClarity, UAClearGlucose, UANegativeNegative - 2000(110) ++++ mg/dLBilirubin, UANegativeNegative - 4(70) +++ mg/dLKetones, UAPositiveNegative - 160(16) ++++ mg/dLComment:1+Spec Grav, UA1.0201 - 1.03Blood, UANegative Negative - 50 Dao/mcLpH, UA6.05 - 9Protein, UANegativeNegative - 2000(20) ++++ mg/dLUrobilinogen, UA0.20.2 - 12 mg/dLLeukocytes, UANegativeNegative - 500+++ Hernandez/mcLNitrite, UANegativeNegative - PositiveSpecimen (Source)Anatomical Location / LateralityCollection Method / VolumeCollection TimeReceived TimeUrine 03/06/2025 10:09 AM EDT Narrative Authorizing ProviderResult TypeResult StatusCorey Thomas DOPOINT OF CARE TEST ENTER/EDIT ORDERABLESFinal Result * RECURRENT VAGINITIS (HTRX) (02/07/2025 11:58 AM EDT)ComponentValueRef Range Test MethodAnalysis TimePerformed AtPathologist SignatureATOPOBIUM VAGINAE0 19.961 - 24.689 ppm02/08/2025 7:10 AM EDTHealthTrackRx at LabPortATOPOBIUM VAGINAENot Ysweouxh92.961 - 24.689 ppm02/08/2025 7:10 AM EDTHealthTrackRx at LabPortBVAB 2,3 (BACTERIAL VAGINOSIS ASSOCIATED BACTERIA 2, 3); MOBILUNCUS SPP 019.961 - 24.689 ppm02/08/2025 7:10 AM EDTHealthTrackRx at LabPortBVAB 2,3 (BACTERIAL VAGINOSIS ASSOCIATED BACTERIA 2, 3); MOBILUNCUS SPPNot Detected 19.961 - 24.689 ppm02/08/2025 7:10 AM EDTHealthTrackRx at LabPortCANDIDA ALBICANS, PARAPSILOSIS, FUEZVONKLN854.000 - 30.347 ppm02/08/2025 7:10 AM EDT [facility] at LabPortCANDIDA ALBICANS, PARAPSILOSIS, TROPICALISNot Detected 23.000 - 30.347 ppm02/08/2025 7:10 AM EDTHealthTrackRx at LabPortCANDIDA UCDTSKJV120.000 - 31.618 ppm02/08/2025 7:10 AM EDTHealthTrackRx at LabPort ASHUTOSH GLABRATANot Allleghu89.000 - 31.618 ppm02/08/2025 7:10 AM EDT [facility] at LabPortCANDIDA CHJZTF203.000 - 30.873 ppm02/08/2025 7:10 AM EDTHealthTrackRx at LabPortCANDIDA KRUSEINot Nyvurtkd67.000 - 30.873 ppm 02/08/2025 7:10 AM EDTHealthTrackRx at LabPortCHLAMYDIA SNUOVBYRVCY773.000 - 31.586 ppm02/08/2025 7:10 AM EDTHealthTrackRx at LabPortCHLAMYDIA TRACHOMATIS Not Khkyawld76.000 - 31.586 ppm02/08/2025 7:10 AM EDTHealthTrackRx at LabPort GARDNERELLA OOKKUFVOI580.961 - 24.689 ppm02/08/2025 7:10 AM EDTHealthTrackRx at [facility]GARDNERELLA VAGINALISNot Tzmbzsnl64.961 - 24.689 ppm02/08/2025 7:10 AM EDTHealthTrackRx at LabPortMEGASPHAERA (TYPES 1, 2)019.961 - 24.689 ppm 02/08/2025 7:10 AM EDTHealthTrackRx at LabPortMEGASPHAERA (TYPES 1, 2)Not Ofoteixi71.961 - 24.689 ppm02/08/2025 7:10 AM EDTHealthTrackRx at [facility]Port NEISSERIA XQDXDDRZFBR759.000 - 32.587 ppm02/08/2025 7:10 AM EDTHealthTrackRx at LabPortNEISSERIA GONORRHOEAENot Odthujkt49.000 - 32.587 ppm02/08/2025 7:10 AM EDTHealthTrackRx at LabPortTRICHOMONAS ZVRGZLEWR954.000 - 31.995 ppm 02/08/2025 7:10 AM EDTHealthTrackRx at LabPortTRICHOMONAS VAGINALISNot Qqcvmnoi32.000 - 31.995 ppm02/08/2025 7:10 AM EDTHealthTrackRx at [facility] MYCOPLASMA TGDTLJIKVU328.961 - 24.689 ppm02/08/2025 7:10 AM EDTHealthTrackRx at LabPortMYCOPLASMA GENITALIUMNot Druzwmlm50.961 - 24.689 ppm02/08/2025 7:10 AM EDTHealthTrackRx at LabPortSpecimen (Source)Anatomical Location / LateralityCollection Method / VolumeCollection TimeReceived TimeTissue 02/07/2025 11:58 AM EDT02/08/2025 1:36 AM EDT Narrative Authorizing ProviderResult TypeResult StatusAmy Lebanon PALAB BLOOD ORDERABLES Final ResultPerforming OrganizationAddressCity/State/ZIP CodePhone Number [facility] [address] [address] * BOX TEST (01/19/2025 9:59 AM EDT)ComponentValueRef RangeTest MethodAnalysis TimePerformed AtPathologist SignatureBOX TEST SENT JODinwrtHREHMI8mrtdyOHNUKS3 01/19/25TBHSpecimen (Source)Anatomical Location / LateralityCollection Method / VolumeCollection TimeReceived Time01/19/2025 9:59 AM EDT01/19/2025 10:03 AM EDT Narrative [facility] - 01/19/2025 10:04 AM EDT Authorizing ProviderResult TypeResult StatusKristina Nicolette NPLAB BLOOD ORDERABLESFinal ResultPerforming OrganizationAddressCity/State/ZIP CodePhone Number [facility] * MLR HEMOGLOBIN A1C (01/19/2025 9:59 AM EDT)ComponentValueRef RangeTest Method Analysis TimePerformed AtPathologist SignatureGLYCOHEMOGLOBIN A1C4.74.5 - 6.2 %TBHComment: ADA RECOMMENDED LIMIT 4.0 - 6.0 ADA THERAPEUTIC TARGET < 7.0 ACTION SUGGESTED > 7.0 ESTIMATED AVERAGE NQXBQWI70ac/dLTBHSpecimen (Source)Anatomical Location / LateralityCollection Method / VolumeCollection TimeReceived Time01/19/2025 9:59 AM EDT01/19/2025 10:03 AM EDT Narrative [facility] - 01/19/2025 10:57 AM EDT Authorizing ProviderResult TypeResult StatusCorey Thomas DOCLINISYNCFinal Result Performing OrganizationAddressCity/State/ZIP CodePhone Number [facility] from Last 3 Months Additional Health Concerns Active ProblemsNoted DateDiagnosed DateOB Shgkzqlzj22/11/2025 Insurance Care Teams Team MemberRelationshipSpecialtyStart DateEnd Date Karly Baca PCP - [facility]11/23/23
--- OUTSIDE RECORDS SUMMARY | 2025-03-28 22:21 | XMS_ITS | Clinical Summary ---
Author Organization [facility] Address [address] [place] [address], [address] [place] [address] Care Team Providers Care Informatics Nurse Specialist Name Role Phone Unavailable Primary Care Provider Unavailabl e Allergies No known active allergies Medications MedicationSigDispense QuantityRefillsLast FilledStart DateEnd DateStatus amphetamine-dextroamphetamine (ADDERALL) 30 MG tablet Take 30 mg by mouth daily.Active ibuprofen (ADVIL;MOTRIN) 800 MG tablet Take 1 tablet by mouth every 8 hours as needed for Pain. 30 tablet ctive Social History Tobacco UseTypesPacks/DayYears UsedDateSmoking Tobacco: NeverAlcohol UseStandard Drinks/WeekCommentsNo0 (1 standard drink = 0.6 oz pure alcohol)Comments NoSex and Gender InformationValueDate RecordedSex Assigned at BirthNot on file Legal KawYtnabm06/10/2013 7:37 PM ESTGender IdentityNot on fileSexual OrientationNot on file Last Filed Vital Signs Vital SignReadingTime TakenCommentsBlood Svrovdav322/7505 1:26 PM EDT Pzpou4688 1:26 PM NXPXufwlkuwloa92.7 ??C (98.1 ??F)10/18/2014 1:26 PM EDTRespiratory Kyra5452 1:26 PM EDTOxygen Xcaqvszbyx75%10/18/2014 1:26 PM EDTInhaled Oxygen Concentration--Nmhgid69.9 kg (189 lb 6 oz)10/18/2014 1:26 PM EDTHeight--Body Mass Index-- Plan of Treatment Not on file
--- OUTSIDE RECORDS SUMMARY | 2025-03-28 22:21 | XMS_ITS | Encounter Summary ---
Author Organization [facility] Address [address] [place] [address] Care Team Providers Care Smeller Name Role Phone Karly Baca Unavailable Unavailable Encounter Details DateTypeDepartmentCare Team (Latest Contact Info)Dgdsussnwkf90/04/2025Patient Outreach [facility] [address] [place] [address] Ira Rahman LPN [address] [place], [place] [phone] Social History Tobacco UseTypesPacks/DayYears UsedDateSmoking Tobacco: NeverSmokeless Tobacco: NeverAlcohol UseStandard Drinks/WeekCommentsNot Currently0 (1 standard drink = 0.6 oz pure alcohol)caffeine intake: nonePHQ-2AnswerDate RecordedPatient Health Questionnaire-2 Cxrgv24305/28/2024Estimated Date of DeliveryCommentsYes 6Based on UltrasoundSex and Gender InformationValueDate RecordedSex Assigned at BirthNot on fileLegal QubUfkxij95/04/2023 12:17 PM EDTGender IdentityNot on fileSexual OrientationNot on filedocumented as of this encounter Functional Status * Over the past 2 weeks, how often have you been bothered by any of the following problems?QuestionAnswerDate of AssessmentAuthorLittle interest or pleasure in doing thingsNot at all03/28/2025 2:08 PM Ira Resendez LPN Feeling down, depressed, or hopelessNot at all03/28/2025 2:08 PM Ira Resendez LPNPatient Health Questionnaire-2 Hklag710/08/2024 2:08 PM Ira Resendez LPN documented as of this encounter Progress Notes * Ira Rahman LPN - 03/28/2025 2:08 PM EST Monthly Outreach. Call to pt. Pt reports she feels baby moving frequently. Appetite and sleep are adequate. Bowels are regular. Pt denies any depression or difficulty coping at this time. Pt reports pain in lower abdominal area. She also is worried about low lying placenta per US. Pt reports she was counseled by office staff but is looking forward to her appt 04/03/25. Meds reviewed. documented in this encounter Plan of Treatment DateTypeDepartmentCare Team (Latest Contact Info)Hldyycsebtz64/10/2025 11:00 AM ESTAncillary Procedure [facility] [address] [place] [address] [place] [address] 04/03/2025 11:30 AM ESTRoutine [facility] [address] [place] [address] Ira Jesnen, PA [address] [place] [address] documented as of this encounter Goals GoalPatient Goal TypeAssociated ProblemsRecent ProgressPatient-Stated?Author Reminders Care PlanOB RemindersDarlyn Hudson RNdocumented as of this encounter Visit Diagnoses Not on filedocumented in this encounter Additional Health Concerns Active ProblemsNoted DateDiagnosed DateOB Zdjiapvnx58/11/2025 documented as of this encounter Care Teams Team MemberRelationshipSpecialtyStart DateEnd Date Karly Baca PCP - [facility]11/23/23documented as of this encounter
--- OUTSIDE RECORDS SUMMARY | 2025-03-28 22:21 | XMS_ITS | Encounter Summary ---
Author Organization [facility] Address [address] [place] [address] Care Team Providers Care Milk Of Lime Slaker Name Role Phone Karly Baca Unavailable Unavailable Encounter Details DateTypeDepartmentCare Team (Latest Contact Info)Nluktcgvols01/22/2025Telephone [facility] [address] [facility] [place] [address] Tatiana Harrell MA Social History Tobacco UseTypesPacks/DayYears UsedDateSmoking Tobacco: NeverSmokeless Tobacco: NeverAlcohol UseStandard Drinks/WeekCommentsNot Currently0 (1 standard drink = 0.6 oz pure alcohol)caffeine intake: nonePHQ-2AnswerDate RecordedPatient Health Questionnaire-2 Rmvxy267Estimated Date of DeliveryCommentsYes 6Based on UltrasoundSex and Gender InformationValueDate RecordedSex Assigned at BirthNot on fileLegal XamFdunxy79/04/2023 12:17 PM EDTGender IdentityNot on fileSexual OrientationNot on filedocumented as of this encounter Miscellaneous Notes * Telephone Encounter - Tatiana Harrell MA - 03/15/2025 8:51 AM EDT Pt notified of results and recommendations. PVU. Transferred to front office staff for scheduling. documented in this encounter Plan of Treatment DateTypeDepartmentCare Team (Latest Contact Info)Sgrvmnxraqx83/10/2025 11:00 AM ESTAncillary Procedure [facility] [address] [facility] [place] [address] 04/03/2025 11:30 AM ESTRoutine [facility] [address] [place] [address] Ira Jensen PA [address] [place] [address] NameTypePriorityAssociated DiagnosesOrder ScheduleUS OB limited 1+ fetuses ImagingRoutine Marginal placenta, antepartum ([facility]) Expected: 03/15/2025, Expires: 06/15/2025documented as of this encounter Goals GoalPatient Goal TypeAssociated ProblemsRecent ProgressPatient-Stated?Author Reminders Care PlanOB RemindersDarlyn Hudson RNdocumented as of this encounter Visit Diagnoses Diagnosis Encounter for repeat ultrasound for low lying placenta, antepartum ([facility]) Marginal placenta, antepartum ([facility]) documented in this encounter Additional Health Concerns Active ProblemsNoted DateDiagnosed DateOB Hkbqwothw84/11/2025 documented as of this encounter Care Teams Team MemberRelationshipSpecialtyStart DateEnd Date Karly aBca PCP - [facility]11/23/23documented as of this encounter
--- OUTSIDE RECORDS SUMMARY | 2025-03-28 22:21 | XMS_ITS | Clinical Summary ---
Author Organization [facility] Address [id number] [address] 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 Name Role Phone Pcp, Not In System Primary Care Provider Unavail able Allergies No known active allergies Medications MedicationSigDispense QuantityRefillsLast FilledStart DateEnd DateStatus acyclovir (ZOVIRAX) 5 % ointment Apply topically to affected area every 3 hours while awake 15 g 11/12/2017Active Active Problems No known active problems Social History Tobacco UseTypesPacks/DayYears UsedDateSmoking Tobacco: NeverSmokeless Tobacco: NeverAlcohol UseStandard Drinks/WeekCommentsNo0 (1 standard drink = 0.6 oz pure alcohol)ChildcareAnswerDate FodwzbefVxzbasopzLgmaosa52/12/2019EmploymentAnswer Date GxpbzziuYycvdalddxLvzfoka12/12/2019Purpose - LifeAnswerDate RecordedPurpose and direction in zkhnGwitpzh92/11/2021CommentsUnknownSex and Gender InformationValueDate RecordedSex Assigned at BirthNot on fileLegal SexFemale 12/28/2014 12:00 PM EDTGender IdentityNot on fileSexual OrientationNot on file Last Filed Vital Signs Vital SignReadingTime TakenCommentsBlood Slmmwxxa145/7906 6:32 PM EDT Ufbvn6895 6:32 PM HUMKfnokwpvxtr56.8 ??C (98.2 ??F)11/12/2017 6:32 PM EDTRespiratory Ibrf434411/12/2017 6:32 PM EDTOxygen Shppukxmxb39%11/12/2017 6:32 PM EDTInhaled Oxygen Concentration--Pmdntw325.4 kg (261 lb 1.6 oz)11/12/2017 6:32 PM OPKOgukry498.9 cm (5' 1 )11/12/2017 6:32 PM EDTBody Mass Index49.33 11/12/2017 6:32 PM EDT Plan of Treatment Not on file Medical Devices Not on file Insurance Care Teams Team MemberRelationshipSpecialtyStart DateEnd Date Pcp, Not In System [place] [address] [facility] - [facility]12/17
[2025-03-28 22:50] VITALS: BP 105/55; PULSE 76; TEMP 37
[2025-03-28 23:53] LABS: Glucose Urine UA NEGATIVE (NEGATIVE)
== END 2025-03-29 00:40 | disposition home or self-care (01) ==
PROVIDERS: Admitting Provider Obstetrics & Gynecology; Visit Provider Obstetrics & Gynecology
DX: O99.891 Other specified diseases and conditions complicating pregnancy (principal); R10.30 Lower abdominal pain, unspecified; Z3A.22 22 weeks gestation of pregnancy
CPT/HCPCS: 59025; 81003; G0378; G0379

== ENCOUNTER 2025-04-10 09:53 | Outpatient (OUT) | payer MEDICAID, SELFPAY ==
--- OUTSIDE RECORDS SUMMARY | 2025-04-10 10:02 | XMS_ITS | CCD ---
Author Organization [facility] Care Team Providers Care Field Aide Name Role Phone Maria R Disla Unavailable [...] DR PEARSON Consulting Unavailable Naif NGUYỄNCarlosie Unavailable [phone] SASHA XIE Attending Unavailable NEO, ALLIE Referring Unavailable NEO, ALLIE Referring Unavailable SHELLY PARSONS Attending Unavailable MALONE, TOMS Referring Unavailable NETTA DILLARD Attending Unavailable NEO, ALLIE Referring Unavailable NEO, ALLIE Attending Unavailable MALONE, TOMS Attending Unavailable NEO, ALLIE Referring Unavailable NON STAFF Primary Care Provider UnavailISRAEL Torres Attending Provider ISRAEL Christie Attending Provider [phone] ISRAEL Alas Attending Provider [phone] MARIA R DISLA Attending Unavailable MARIA R DISLA Admitting Unavailable MARZENA MARTINEZ Attending Unavailable MARZENA MARTINEZ Admitting Unavailable MARIA R DISLA Attending Unavailable MARIA R DISLA Admitting Unavailable Krrayne Karly Unavailable Unavailable NON STAFF Primary Care Provider Unavailanna marie e Rajwinder Bang APRN Attending Provider Fred Longoria PA-C Attending Provider Valente Hebert DO Emergency Provider NON STAFF Primary Care Unavailable Valente Hebert Attending Unavailable Valente Hebert Admitting Unavailable IRA JENSEN Attending Unavailable WESLEY BROWNING Attending Unavailable RODRIGO GUZMAN Attending Unavailable IRA JENSEN Attending Unavailable IRA JENSEN Attending Unavailable RODRIGO GUZMAN Attending Unavailable IRA JENSEN Attending Unavailable Medications Current Medications MedicationDrug Class(es)DatesSig (Normalized)Sig (Original)acetaminophen 300 mg / codeine phosphate 30 mg oral tablet (2 sources)Opioid AgonistStart: 02-09-2025 End: 11-63-7064aial 1 tablet by mouth every six hours as needed for pain and headache and headacheacetaminophen-codeine (Tylenol w/ Codeine #3) 300-30 MG tablet Indications: Nonintractable headache, unspecified chronicity pattern, unspecified headache type Take 1 tablet by mouth every 6 (six) hours if needed for severe pain for up to 5 days 20 tablet 02/09/2025 02/14/2025 Active amoxicillin 875 mg oral tablet (6 sources)Penicillin-class AntibacterialStart: 25-84-1576cmuy 1 tablet by mouth every twelve hoursAmoxicillin 875 MG 1 tablet Orally every 12 hrs for 7 days Feb, Activeclindamycin 10 mg/ml topical solution (12 sources)Lincosamide AntibacterialStart: 10-27-2022 End: 76-01-5788ccpygfozyna (Cleocin T) 1 % external solution APPLY TO AFFECTED AREAS ON GROIN ONCE DAILY AFTER SHOWER. 10/27/2022 11/07/2024 Discontinued (Therapy completed)Comment on above:Apply 1 Application to affected area once daily.24 hr desvenlafaxine succinate 25 mg extended release oral tablet (5 sources)Serotonin and Norepinephrine Reuptake InhibitorStart: 39-92-9622amkq 1 tablet by mouth every twenty-four hoursPristiq 25 MG 1 tablet Orally Once a day for 30 day(s) Nov, Activeetonogestrel 68 mg drug implant (20 sources)ProgestinStart: 11-17-2022 End: 91-03-1869yhctpizlekgx-eluting 68 mg contraceptive implant Indications: Encounter for removal and reinsertionof Nexplanon 1 each by Implant route 1 (one) time for 1 dose. 1 each 11/17/2022 11/07/2024 Discontinued (Therapy completed)Start: 91-51-1921tukvfvkbtlvb (NEXPLANON) subdermal implant 68 mg 1 Each by SUBDERMAL route. 11/17/2022 ActiveNexplanon ActiveComment on above:1 Each by SUBDERMAL route.hydrOXYzine hydrochloride 10 mg oral tablet (14 sources)AntihistamineStart: 96-88-2543dgamQZSjjqp HCl 10 MG 1 tablet as needed Orally at bedtime for 30 day(s) September, ActiveStart: 10-14-2021 hydrOXYzine HCl 25 MG 1 tablet as needed Orally at bedtime for 30 day(s) September, Activelisdexamfetamine dimesylate 40 mg oral capsule (4 sources)Central Nervous System StimulantStart: 11-09-2024 End: 37-59-1366sqcycbifl oxide 400 mg oral tablet (13 sources)Start: 02-07-2025 End: 19-82-4914qflc 1 tablet by mouth once dailymagnesium oxide (Mag-Ox) 400 MG tablet Indications: Nausea and vomiting in ([facility]) Take1 tablet (400 mg) by mouth Daily 30 tablet 6 02/07/2025 09/05/2025 Activenitrofurantoin, macrocrystals 25 mg / nitrofurantoin, monohydrate 75 mg oral capsule (2 sources)Nitrofuran AntibacterialStart: 59-55-3690diyy 1 capsule by mouth every twelve hoursMacrobid 100 MG 1 cap(s) Orally 2 times a day for 5 day(s) Jun, Activeondansetron 4 mg oral tablet (13 sources)Serotonin-3 Receptor AntagonistStart: 88-82-1192hnjd 1 tablet by mouth every six hours as needed for nausea and nausea, then take 1 tablet by mouthevery six hours as needed for nausea and nauseaondansetron (Zofran) 4 MG tablet Indications: Nausea and vomiting in ([facility]) Take 1 tablet (4 mg) by mouth every 6 (six) hours if needed for nausea or vomiting for up to 120 doses Take 1 tablet by mouth every 6 hours as needed for nausea. 30 tablet 3 02/07/2025 Activephenazopyridine hydrochloride 200 mg oral tablet (2 sources)Start: 59-46-0617dgtw 1 tablet by mouth every eight hoursPyridium 200 MG 1 tablet after meals Orally Three times a day for 2 day(s) Jun, ActivePrenatal Vit-Fe Fumarate-FA ( Vitamins) 28-0.8 MG tablet (20 sources)Start: 12-02-2024 End: 27-16-0820ugau 1 tablet by mouth once dailyPrenatal Vit-Fe Fumarate-FA ( Vitamins) 28-0.8 MG tablet Indications: Encounter for supervision of normal first in first trimester ([facility]) Take 1 tablet by mouth Daily 30 tablet 11 12/02/2024 12/02/2025 Activepromethazine hydrochloride 12.5 mg oral tablet (8 sources)PhenothiazineStart: 02-09-2025 End: 98-45-2928ucil 2 tablets by mouth every six hours [...] by mouth every 6 hours as needed fornausea. 30 tablet 2 02/09/2025 04/03/2025 DiscontinuedtraZODone hydrochloride 100 mg oral tablet (14 sources)Serotonin Reuptake InhibitorStart: 11-15-2024 End: 91-35-5850Mdzmz: 09-16-2023 End: 50-78-2954codu 1 tablet by mouth once dailyTrazodone 50 mg tablet Discontinued 50 MG PO Daily September 16, 2023 12:00am November 15, 2024 10:11am24 hr venlafaxine 37.5 mg extended release oral capsule (20 sources)Serotonin and Norepinephrine Reuptake InhibitorStart: 02-28-2020 End: 11-71-6463hdlv 1 capsule by mouth every twenty-four hoursEffexor XR 37.5 MG 1 capsule with food Orally Once a day for 30 days Feb, ActiveStart: 75-02-1306hsrl 1 capsule by mouth every twenty-four hoursEffexor XR 75 MG 1 capsule with food Orally Once a day for 30 days patient lost presciption Nov, Active Completed/Discontinued Medications MedicationDrug Class(es)DatesSig (Normalized)Sig (Original)[id number] 200 actuat albuterol 0.09 mg/actuat metered dose inhaler (15 sources)beta2-Adrenergic AgonistStart: 11-09-2024 End: 31-88-7336Dgftdcpyt Sulfate 90 mcg/actuation HFA aerosol inhaler Discontinued 1 INH INHALATION Every 4 hours as needed for shortness of breath or wheezing 6.7 November 09, 2024 12:00am November 15, 2024 10:10amStart: 12-25-2020 take 2 puff(s) by inhalation every four hours as neededAlbuterol Sulfate HFA 108 (90 Base) MCG/ACT 2 puffs as needed Inhalation every 4 hrs Dec, Active Start: 43-33-9558zegb 2 puff(s) by inhalation every four hours as needed Albuterol Sulfate HFA 108 (90 Base) MCG/ACT 2 puffs as needed Inhalation every 4 hrs Dec, ActiveStart: 92-37-8142ovgayayabaj 875 mg / clavulanate 125 mg oral tablet (1 source)Penicillin-class AntibacterialStart: 11-09-2024 End: 90-37-0368bikf 1 tablet by mouth twice daily at mealtimeAmoxicillin-Pot Clavulanate 875-125 mg tablet Discontinued 1 TAB PO Twice daily 14 7 November 09, 2024 12:00am November 15, 2024 10:10am take with foodARIPiprazole 5 mg oral tablet (20 sources)Atypical AntipsychoticStart: 41-58-2550gjms 1 tablet by mouth every twenty-four hoursARIPiprazole 2 MG 1 tablet Orally Once a day for 30 days Feb, ActiveStart: 02-26-2021 End: 45-60-3670Qrhfgcnejnxx 5 mg tablet Discontinued MG PO November 05, 2024 12:00am November 15, 2024 10:11amComment on above:Take 1 tablet by mouth once daily.benzoyl peroxide 100 mg/ml medicated liquid soap (16 sources)Start: 09-22-2022 End: 67-78-8249UTHFZE AC WASH 10 % external wash WASH, LATHER AND RINSE AFFECTED AREAS IN THE GROIN AREA DAILY 09/22/2022 12/19/2024 Discontinued (Therapy completed)Comment on above:Apply 1 Application to affected area once daily. cefdinir 300 mg oral capsule (7 sources)Cephalosporin AntibacterialStart: 09-16-2023 End: 98-51-4441ilyr 1 capsule by mouth twice dailyCefdinir 300 mg capsule Discontinued 300 MG PO Twice daily 14 September 16, 2023 12:00am October 10:35amcyclobenzaprine hydrochloride 10 mg oral tablet (20 sources)Muscle RelaxantStart: 09-16-2023 End: 20-75-3725juyk 1 tablet by mouth once dailyCyclobenzaprine 10 mg tablet Discontinued 10 MG PO Daily September 16, 2023 12:00am November 05, 2024 9:18am Start: 24-03-3180xucr 1 tablet by mouth every eight hoursCyclobenzaprine HCl 5 MG 1 tablet as needed Orally Three times a day Feb, Not-Taking dextromethorphan hydrobromide 15 mg / guaiFENesin 400 mg / pseudoephedrine hydrochloride 60 mg oraltablet (1 source)alpha-Adrenergic Agonist, Uncompetitive H-mooqie-Y-aspartate Receptor Antagonist, Sigma-1 AgonistStart: 11-05-2024 End: 38-34-0944afbp 4 tablets by mouth every twenty-four hours as needed Fkpztibzxbdvykb-Zt-Lawupvrvtex (Capmist Dm) 60-15-400 mg tablet Discontinued 1 TAB PO EVERY 4-6 HOURS as needed for cold symptoms November 05, 2024 12:00am November 15, 2024 10:11am do not exceed 4 doses per 24 hrsdoxycycline hyclate 100 mg oral capsule (16 sources)Tetracycline-class DrugStart: 09-22-2022 End: 30-64-4454uexf 1 capsule by mouth once daily at mealtimedoxycycline (Vibramycin) 100 MG capsule TAKE 1 CAPSULE BY MOUTH DAILY WITH FOOD AND WATER 09/22/2022 12/19/2024 Discontinued (Therapy completed)Comment on above:Take 1 capsule by mouth once daily.fluconazole 150 mg oral tablet (2 sources)Azole AntifungalStart: 02-02-2024 End: 09-89-5184Vwcylvpynqe 150 mg tablet Discontinued 150 MG PO Q3D 2 0 February 02, 2024 12:00am November 05, 2024 9:17am may repeat x 1 in 3 days if neededketorolac tromethamine 10 mg oral tablet (3 sources)Nonsteroidal Anti-inflammatory Drug, Cyclooxygenase InhibitorStart: 01-20-2024 End: 99-51-6696fngm 1 tablet by mouth three times daily as neededketorolac (Toradol) 10 MG tablet Take 1 tablet by mouth 3 (three) times a day as needed 01/20/2024 12/19/2024 Discontinued (Therapy completed)3 ml liraglutide 6 mg/ml pen injector (7 sources)GLP-1 Receptor Agonist End: 97-74-8145Ywjdsla 18 MG/3ML injection 1 (one) time each day at the same time. 12/19/2024 Discontinued (Therapy completed)metroNIDAZOLE 500 mg oral tablet (1 source)Nitroimidazole AntimicrobialStart: 02-05-2024 End: 58-97-5384klhv 1 tablet by mouth every twelve hoursMetronidazole 500 mg tablet Discontinued 500 MG PO Every 12 hours 14 February 05, 2024 12:00am November 05, 2024 9:17amminocycline 100 mg oral capsule (7 sources)Tetracycline-class DrugStart: 09-16-2023 End: 19-50-8784ryrs 1 mg by mouth once dailyMinocycline 100 mg capsule Discontinued MG PO Daily September 16, 2023 12:00am January 20, 2024 12:02pm Start: 09-16-2023 End: 22-59-8002fzwe 1 mg by mouth once dailyMinocycline Discontinued MG PO Daily September 16, 2023 12:00am January 20, 2024 12:02pmpredniSONE 20 mg oral tablet (1 source)Start: 11-09-2024 End: 13-96-0456fctj 3 tablets by mouth once daily at mealtimePrednisone 20 mg tablet Discontinued 60 MG PO Daily 15 November 09, 2024 12:00am November 15, 2024 10:11am with foodspironolactone 50 mg oral tablet (16 sources)Aldosterone Antagonist End: 17-54-3288etdnvhghruhlrg (Aldactone) 50 MG tablet 12/19/2024 Discontinued (Therapy completed)Comment on above:Take 1 tablet by mouth once daily. valACYclovir 1000 mg oral tablet (16 sources)Herpesvirus Nucleoside Analog DNA Polymerase Inhibitor, Herpes Simplex Virus Nucleoside Analog DNA Polymerase Inhibitor, Herpes Zoster Virus Nucleoside Analog DNA Polymerase InhibitorStart: 11-15-2024 End: 12-89-1412ukuVKBopcsyy (Valtrex) 1 g tablet Take 1,000 mg by mouth in the morning and 1,000 mg before bedtime. 11/15/2024 02/09/2025 DiscontinuedStart: 98-80-3386pugx 1 tablet by mouth every eight hoursValtrex 1 GM 1 tablet Orally 3 times a day for 7 days Jan, Not-Takingtake 1 tablet by mouth every twelve hoursValtrex 1 GM 1 tablet Orally twice a day for 7 days Active Problems Active Problems Problem ClassificationProblemDateDocumented DateEpisodic/Chronic Administrative/social admission (1 source)Dietary counseling and surveillance; Translations: [Dietary counseling and surveillance]Onset: 93-69-9467GyntyrytSpmmecj disorders (20 sources)Generalized anxiety disorder; Translations: [Generalized anxiety disorder]Onset: 02-26-2021 Resolved: 29-48-1048UduhbudYwcraf (20 sources)Exacerbation of asthma; Translations: [Asthma exacerbation]Onset: 741353-26-6355IvfpaojRblsfjfma-rhdnwnv, conduct, and disruptive behavior disorders (1 source)Attention-deficit hyperactivity disorder, unspecified type; Translations: [ADHD UNSPECIFIED TYPE]Onset: 24-99-0495SrokjpdEfqrdiqyh-deficit, conduct, and disruptive behavior disorders (16 sources)Attention [...] [Nonintractable headache, unspecified chronicity pattern, unspecified headache type]04-02-3581KaqqgorjUnjpkurwpb during ; abruptio placenta; placenta previa (2 sources)Placenta previa marginalis; Translations: [Partial placenta previa NOS or without hemorrhage, unspecified trimester]00-70-5928DtfjxilxJvxuyhhzmryyw and screening for infectious disease (4 sources)Contact with and (suspected) exposure to other viral communicable diseases; Translations: [Encounter for screening for other viral diseases]Onset: 03-30-2021 Resolved: 09-97-5613HapfnzufRihlhagwbwsy diseases of female pelvic organs (1 source)Acute vaginitis; Translations: [ACUTE VAGINITIS]Onset: 09-23-2022 EpisodicIntestinal infection (1 source)Viral intestinal infection, unspecified; Translations: [VIRAL INTESTINAL INFECTION UNSPEC]Onset: 83-30-0107UhcxndqcKfvs disorders (16 sources)Depressive disorder; Translations: [Depression]Onset: 01-19-2023 33-99-9271OxkkkxiJpszou and vomiting (2 sources)Nausea; Translations: [Nausea]90-50-6651HyvplbedGfmp wounds of extremities (1 source)Laceration without foreign body of right middle finger without damage to nail, initial encounterEpisodicOther complications of (2 sources)Maternal obesity complicating , childbirth and the puerperium, antepartum; Translations: [Obesity complicating , first trimester]06-36-4094XpmtnpwRarah complications of (2 sources)Herpes in ; Translations: [Other viral diseases complicating , first trimester]51-93-5262PlbphoudPhqec complications of (4 sources)Vomiting of , unspecified; Translations: [Unspecified vomiting of , unspecified as to episode of care or not applicable] 03-58-9313EqgnfydlCcjhb connective tissue disease (3 sources)Myalgia, unspecified siteOnset: 05-28-2021 Resolved: 06-57-8408VurlbsqfXgwqk female genital disorders (4 sources)Vaginal discharge; Translations: [Other specified noninflammatory disorders of vagina]53-49-7702ZxwgvypdAqjsp female genital disorders (1 source)Other specified noninflammatory disorders of vagina; Translations: [Leukorrhea, not specified as infective]49-04-6345CgzryfgaZmiyc gastrointestinal disorders (3 sources)Diarrhea, unspecified; Translations: [DIARRHEA UNSPECIFIED]Onset: 11-90-9033VqttlvffAhved injuries and conditions due to external causes (6 sources)Injury of right leg; Translations: [Unspecified injury of right ankle, initial encounter]86-91-9735LpfweisvKcqce nutritional; endocrine; and metabolic disorders (14 sources)Obesity; Translations: [Obesity, unspecified]ChronicOther nutritional; endocrine; and metabolic disorders (1 source)Obesity, unspecified; Translations: [OBESITY UNSPECIFIED]Onset: 81-16-1857GnnqxxpAfjol nutritional; endocrine; and metabolic disorders (1 source)Body mass index (BMI) 45.0-49.9, adult; Translations: [BODY MASS INDEX BMI 45.0-49.9 ADULT]Onset: 03-38-6180XbwfqdtXmbcp nutritional; endocrine; and metabolic disorders (5 sources)Severe obesity; Translations: [Morbid (severe) obesity due to excess calories]37-72-0042UkfstxwEmtsh nutritional; endocrine; and metabolic disorders (10 sources)Body mass index 40+ - severely obese; Translations: [Morbid (severe) obesity due to excess calories]Onset: 177128-66-1949LtulxenZzhvx nutritional; endocrine; and metabolic disorders (3 sources)Body mass index (BMI) 40.0-44.9, adult; Translations: [Body mass index (BMI) 40.0-44.9, adult (HCC)]Onset: 09-06-0913RrpytjpRpqbb nutritional; endocrine; and metabolic disorders (2 sources)Morbid (severe) obesity due to excess calories; Translations: [Class 3 severe obesity with serious comorbidity and body mass index (BMI) of 40.0 to 44.9 in adult, unspecified obesity type (HCC)]Onset: 19-83-4330EhghrqtCjuof and delivery including normal (13 sources)Normal ; Translations: [Encounter for supervision of normal first , first trimester]41-49-3543NpjqqyigYyrhn screening for suspected conditions (not mental disorders or infectious disease) (2 sources)Cancer cervix screening status; Translations: [Encounter for screening for malignant neoplasm of cervix]41-98-2133HetwpcdnCmttm skin disorders (1 source)Follicular disorder, unspecified; Translations: [FOLLICULAR DISORDER UNSPECIFIED]Onset: 70-07-7127LfhvhqbuRfafq upper respiratory infections (6 sources)Acute pharyngitis; Translations: [Acute pharyngitis, unspecified] 79-57-3521RgakugbhJfyrjh media and related conditions (3 sources)Otitis media, unspecified, right ear; Translations: [Unspecified otitis media]61-53-1209NyznapvcDfsfwyeb codes; unclassified (14 sources)Insomnia; Translations: [Insomnia, unspecified]96-79-7349Dplazfyb Residual codes; unclassified (16 sources)Patient encounter status; Translations: [Procedure and treatment not carried out due to patient leaving prior to being seen by health care provider] 50-10-4453HtgzyfqiEpxgwus on above:Problem List clean-up per request of Phys. EHR CmteResidual codes; unclassified (5 sources)Procedure and treatment not carried out due to patient leaving prior to being seen by health care provider; Translations: [PROC AND TX NOT CARRIED OUT PT LEAVE]Onset: 50-30-9668FjtentzuTxzgoirb codes; unclassified (1 source)Nicotine-filled electronic cigarette user; Translations: [Tobacco use] 23-51-3910IswbbymoXnjuxfqw codes; unclassified (1 source)Tobacco use; Translations: [Vapes nicotine containing substance]Onset: 25-65-7124IeokofvqMpjsxgdb codes; unclassified (2 sources)Gestation period, 13 weeks; Translations: [13 weeks gestation of ]03-12-9153AmxhdbocZhanivqj codes; unclassified (2 sources)Gestation period, 12 weeks; Translations: [12 weeks gestation of ]94-52-0327BvthqwweHeqvvuvq codes; unclassified (4 sources)Gestation period, 15 weeks; Translations: [15 weeks gestation of ]97-21-5488MsypjqocTpeodqad codes; unclassified (2 sources)Gestation period, 19 weeks; Translations: [19 weeks gestation of ]42-32-4466GevcuwhaDhthqehr codes; unclassified (2 sources)Gestation period, 23 weeks; Translations: [23 weeks gestation of ]66-40-4973HxyovngxAyun and subcutaneous tissue infections (4 sources)Cutaneous abscess of groin; Translations: [CUTANEOUS ABSCESS OF GROIN]Onset: 97-47-9902MipqsbbkNsvhnmo and strains (11 sources)Sprain of right ankle; Translations: [Sprain of unspecified ligament of right ankle, initial encounter]54-23-8068WgbdzgesSlhqefxvj-related disorders (1 source)Nicotine dependence, cigarettes, uncomplicated; Translations: [NICOTINE DEPEND CIGARETTES UNCOMP]Onset: 92-03-1933EcdgjhtFqivzpans-related disorders (2 sources)Marijuana user; Translations: [Cannabis use, unspecified, uncomplicated]Onset: 612788-83-8470AbtgaivvPkbyycj (7 sources)Syncope; Translations: [Syncope and collapse]36-19-0237Gupslyla Systemic lupus erythematosus and connective tissue disorders (7 sources)Lupus erythematosus; Translations: [Systemic lupus erythematosus, unspecified]21-78-2602GgdwsyxKcxzmtygjaij (20 sources)OB RemindersOnset: 966433-96-9024Fjnaidw tract infections (1 source)Urinary tract infection, site not specifiedEpisodicViral infection (4 sources)Zoster without complications; Translations: [Herpes zoster]Onset: 11-11-2021 Resolved: 47-68-9986Svcclajm Past or Other Problems Problem ClassificationProblemDateDocumented DateEpisodic/ChronicOpen wounds of head; neck; and trunk (1 source)Puncture wound without foreign body of lip, initial encounter; Translations: [Puncture wound without foreign body of lip, initial encounter S01.531A]Onset: 03-07-2021 Resolved: 30-62-4975MalcnzpsDvxfp aftercare (1 source)Other assisted (current) drug therapy; Translations: [OTH POLYMER TESTER CURRENT DRUG THERAPY]Onset: 30-65-2276XsisqzteDwdeg inflammatory condition of skin (4 sources)Pruritus, unspecified; Translations: [PRURITUS UNSPECIFIED]Onset: 96-10-6192CezhvsrzKjhsu skin disorders (4 sources)Follicular cyst of the skin and subcutaneous tissue, unspecified; Translations: [FOLLICULAR CYST SKIN SUBQ TISS UNS]Onset: 76-02-1711Fterlgfu Residual codes; unclassified (2 sources)Insomnia, unspecifiedOnset: 10-14-2021 Resolved: 54-38-8272Hfekgaea Results Test NameValueInterpretationReference RangeFacilityUS OB LIMITED 1+ FETUSESon 04-07-7693YE OB LIMITED 1+ FETUSESFINDINGS: A single intrauterine gestational sac is present. No subchorionic hemorrhage. A single pole is present. Normal heart rate at 148 beats per minute. Yolk sac also is seen. Posterior placenta, low lying inferior aspect 1.7 cm from the closed internal cervical os, cervical length 3.8 cm. Posterior fossa and cardiac evaluation suboptimal due to positioning and body habitus. IMPRESSION: 1. Single viable intrauterine , suboptimal intracranial and cardiac evaluation). 2. Low lying placenta, closed cervix. TRANSCRIBED BY: ELECTRONICALLY SIGNED BY: Radames AndujaralNot AvailableComment on above:Order Comment: US OB INCOMPLETE ANATOMY W US OB TRANSVAGINAL Estimated Date of Delivery: 07/31/25 Gestational Age as of 03/15/2025: 66p3dIklpcblmsn macro (dipstick) panel (U)on 94-94-1961Pvezuimkt, UANegativeNegative - 4(70) +++ mg/dLNOMS HealthcareBlood, UANegativeNegative - 50 Dao/mcLNOMS HealthcareClarity, UAClearNOMS Healthcare Color, UAYellowNOMS HealthcareGlucose, UANegativeNegative - 2000(110) ++++ mg/dL [facility] HealthcareInterpretation and review of laboratory resultsNormalNOMS HealthcareKetones, UANegativeNegative - 160(16) ++++ mg/dLNOMS Healthcare Leukocytes, UANegativeNegative - 500+++ Hernandez/mcLNOMS HealthcareNitrite, UA NegativeNegative - PositiveNOMS HealthcarepH, UA6.05 - 9NOMS HealthcareProtein, UANegativeNegative - 2000(20) ++++ mg/dLNOMS HealthcareSpec Grav, UA1.0201 - 1.03NOMS HealthcareUrobilinogen, UA1.00.2 - 12 mg/dLNOMS HealthcareNOMS HealthcareTBH UA (CLEAN/CATCH) SCALLOP DREDGER/MICRO IF IND.on 99-80-0962EWTKFSPRZ URINE NegativeNEGATIVENOMS HealthcareBLOOD URINENegativeNEGATIVENOMS HealthcareClarity (U)CLEARCLEARNOMS HealthcareColor (U)LT. YELLOWYELLOWNOMS HealthcareGLUCOSE URINE UANegativeNEGATIVE mg/dLNOMS HealthcareInterpretation and review of laboratory resultsAbnormalNOMS HealthcareKetones Ql (U)15 mg/dLAbnormalNEGATIVE NOMS HealthcareLeukocyte esterase Test strip Ql (U)NegativeNEGATIVENOMS HealthcareNITRITE URINENegativeNEGATIVENOMS HealthcarepH (U)6.0 [pH]5.0 - 9.0 N[facility] HealthcarePROTEIN URINENegativeNEG/TRACE mg/dLNOMS HealthcareSPECIFIC GRAVITY URINE<=1.001Szohmsug2.005 - 1.025NOMS HealthcareURINE MICROSCOPIC INDICATEDNONOMS HealthcareUROBILINOGEN URINE0.2 EU/dL0.2 - 1.0 EU/dLNOMS HealthcareCLINISYNCNOMS HealthcareAFP, SERUM, OPEN SPINA BIFIDAon 40-49-1288GZD MOM1.24.NOMS HealthcareAFP VALUE46.8 ng/mL.[facility] HealthcareCOMMENT:Comment.[facility] HealthcareComment on above:Mita Rodriguez, Ph.D., [facility] Director References: Available Upon Request. Multiples Of Median Cutoffs For AFP Elevations Rivera 2.5 Black 2.8 IDD 2.0 Twins 4.5 Abbreviation Definitions IDD - Insulin Dep Diabetes OSBR - Open Spina Bifida Risk For further inquiries contact [email or web address] at [phone]. This test was developed and its performance characteristics determined by [employer]. It has not been cleared or approved by the Food and Drug Administration. Performed at: [facility] [address] [place], [place] [id number] Senior Manufacturing Engineer: Jemal Garvey [facility], Phone: [phone] GEST. AGE ON COLLECTION DATE20.0. weeksNOOK HealthcareGESTAT. AGE BASED ON Ultrasound.[facility] HealthcareComment on above:19.0 on 03/06/2025 Recalculations are not recommended when gestational dating by LMP and ultrasound are within 10 days. INSULIN DEP DIABETESNo.[facility] HealthcareINTERPRETATIONComment.[facility] Comment on above:Interpretation: Screen Negative This result is screen negative for OSB. The AFP MoM calculated is based on the gestational age provided. MS-AFP can identify up to 80% of open neural tube defects. Closed neural tube defects and some open defects may not be detected by this test. This test does not screen for Down Syndrome or Trisomy 18. If screening for Down Syndrome or Trisomy 18 is desired, contact [employer] Customer Services to discuss available options. The [employer] recommends amniocentesis be offered to women age 35 and older. MATERNAL AGE AT EDD24.5. yrNOOK HealthcareMULTIPLE GESTATIONNo.[facility] OSBR RISK 1 [id number].[facility] HealthcareRACECaucasian.[facility] HospitalRESULTSReport. [facility] HospitalTEST RESULTS:Negative.[facility] HospitalGjqtalqguxKZYLWF805. lbsNOOK HealthcarePREGNANCY N N ULTRASOUND [id number] 0 19 N 1 Y 296 N N N N N White/ CLINISYNCNOOK HealthcareUrinalysis macro (dipstick) panel (U)on 03-06-2025 Bilirubin, UANegativeNegative - 4(70) +++ mg/dLNOOK HealthcareBlood, UANegative Negative - 50 Dao/mcLNOMS HealthcareClarity, UAClearNOOK HealthcareColor, UA YellowNOMS HealthcareGlucose, UANegativeNegative - 2000(110) ++++ mg/dLNOOK HealthcareInterpretation and review of laboratory resultsAbnormalSaint Luke's [facility] Hospital Ketones, UAPositiveNegative - 160(16) ++++ mg/dLNOMS HealthcareComment on above: 1+Leukocytes, UANegativeNegative - 500+++ Hernandez/mcLNOMS HealthcareNitrite, UA NegativeNegative - PositiveNOMS HealthcarepH, UA6.05 - 9NOMS HealthcareProtein, UANegativeNegative - 2000(20) ++++ mg/dLNOMS HealthcareSpec Grav, UA1.0201 - 1.03NOMS HealthcareUrobilinogen, UA0.20.2 - 12 mg/dLNOOK HealthcareNOOK HealthcareUrinalysis macro (dipstick) panel (U)on 20-42-3224Alfvyrzoe, UA NegativeNegative - 4(70) +++ mg/dLNOMS HealthcareBlood, UANegativeNegative - 50 Dao/mcLNOOK HealthcareClarity, UAClearNOMS HealthcareColor, UAYellowNOMS HealthcareGlucose, UANegativeNegative - 2000(110) ++++ mg/dLNOOK Healthcare Interpretation and review of laboratory resultsNormalNOOK HealthcareKetones, UA NegativeNegative - 160(16) ++++ mg/dLNOOK HealthcareLeukocytes, UANegative Negative - 500+++ Hernandez/mcLNOOK HealthcareNitrite, UANegativeNegative - Positive NOMS HealthcarepH, UA6.55 - 9NOMS HealthcareProtein, UANegativeNegative - 1999(20) ++++ mg/dLNOMS HealthcareSpec Grav, UA1.0151 - 1.03NOOK Healthcare Urobilinogen, UA1.00.2 - 12 mg/dLNOSSM RehabNOOK HealthcareRECURRENT VAGINITIS (HTRX)on 91-46-8955IIQAEQEDE EXCDHWN0WGDA HealthcareATOPOBIUM VAGINAE Not detectedNOMS HealthcareBVAB 2,3 (BACTERIAL VAGINOSIS ASSOCIATED BACTERIA 2, 3); MOBILUNCUS ZOR8CVQB HealthcareBVAB 2,3 (BACTERIAL VAGINOSIS ASSOCIATED BACTERIA 2, 3); MOBILUNCUS SPPNot detectedNOMS HealthcareCANDIDA ALBICANS, PARAPSILOSIS, OMPZNNQAND3LOWO HealthcareCANDIDA ALBICANS, PARAPSILOSIS, TROPICALISNot detectedNOMS HealthcareCANDIDA UPEBIMFV3OHDZ HealthcareCANDIDA GLABRATANot detectedNOMS HealthcareCANDIDA SDKOSN6XJCL HealthcareCANDIDA KRUSEI Not detectedNOMS HealthcareCHLAMYDIA OZWNNZGRRDL6IIDW HealthcareCHLAMYDIA TRACHOMATISNot detectedNOMS HealthcareGARDNERELLA SKRZQAKIZ1NEUN Healthcare GARDNERELLA VAGINALISNot detectedNOMS HealthcareMEGASPHAERA (TYPES 1, 2)0NOMS HealthcareMEGASPHAERA (TYPES 1, 2)Not detectedNOMS HealthcareMYCOPLASMA AQMRICVLSM2YGGK HealthcareMYCOPLASMA GENITALIUMNot detectedNOMS Healthcare NEISSERIA LLCHWZDRTTL3ERCJ HealthcareNEISSERIA GONORRHOEAENot detectedNOMS HealthcareTRICHOMONAS DQBQIJQEM6RHNU HealthcareTRICHOMONAS VAGINALISNot detected NOMS HealthcareNOMS HealthcareUrinalysis macro (dipstick) panel (U)on 02-07-2025 Bilirubin, UANegativeNegative - 4(70) +++ mg/dLNOMS HealthcareBlood, UANegative Negative - 50 Dao/mcLNOMS HealthcareClarity, UAClearNOMS HealthcareColor, UA YellowNOMS HealthcareGlucose, UANegativeNegative - 2000(110) ++++ mg/dLNOMS HealthcareInterpretation and review of laboratory resultsNormalNOOK Healthcare Ketones, UANegativeNegative - 160(16) ++++ mg/dLNOMS HealthcareLeukocytes, UA NegativeNegative - 500+++ Hernandez/mcLNOOK HealthcareNitrite, UANegativeNegative - PositiveNOOK HealthcarepH, UA75 - 9NOOK HealthcareProtein, UANegativeNegative - 2000(20) ++++ mg/dLNOMS HealthcareSpec Grav, UA1.011 - 1.03NOOK Healthcare Urobilinogen, UA0.20.2 - 12 mg/dLNOSSM RehabNOOK HealthcareBOX TESTon 61-81-7214ZPA TEST SENT OUTunVanderbilt Diabetes CenterKbfvplgmdlAOV7llxcrMGEE HealthcareBOX2 01/19/25NOOK HealthcareCLINISYNCNOMS HealthcareUrinalysis macro (dipstick) panel (U)on 60-89-2564Yxxjuxdsc, UANegativeNegative - 4(70) +++ mg/dLNOMS Healthcare Blood, UANegativeNegative - 50 Dao/mcLNOMS HealthcareClarity, UAClearNOMS HealthcareColor, UAYellowNOMS HealthcareGlucose, UANegativeNegative - 2000(110) ++++ mg/dLNOMS HealthcareInterpretation and review of laboratory resultsNormal NOMS HealthcareKetones, UANegativeNegative - 160(16) ++++ mg/dLNOMS Healthcare Leukocytes, UANegativeNegative - 500+++ Hernandez/mcLNOMS HealthcareNitrite, UA NegativeNegative - PositiveDELTA COMM[facility]ITY [facility] HealthcarepH, UA65 - 9[facility] HospitalProtein, UA NegativeNegative - 1999(20) ++++ mg/dLSaint Luke's East HospitalSpec Grav, UA1.021 - 1.03 [facility] HospitalUrobilinogen, UA1.00.2 - 12 mg/dLAtrium Health Union [facility] - Specimen informationon 81-71-8716Cgqtclxh type Nom (Spec)vaginal [facility] HospitalNo Panel Informationon 93-68-9125AMMCMXLAJPU DNA(PCR)Negative NegatvieDELTA COMM[facility]ITY [facility]ICAL [facility] HealthcareInterpretation and review of laboratory resultsNormMayo Clinic Health System Francisc[facility] HealthcareGlucose, UANegativeNegative - 1999(110) ++++ mg/dLDEL[facility] HealthcareInterpretation and review of laboratory resultsNoWarren General Hospital Protein, UANegativeNegative - 1999(20) ++++ mg/dLAtrium Health Union IGP,APTIMA HPV,AGE GDLNon 68-24-7022EYO GDLN ACOG TESTINGNote.[facility] Comment on above:TESTS RESULT FLAG UNITS REF RANGE LAB Clinician Provided Cytology Information Source.............Cervix;Endocervix No. of containers..01 ThinPrep Vial Age Algo ACOG Yolanda... FLAG LEGEND: L-Low Normal,H-High Normal,LL-Alert Low,HH-Alert High <-Panic Low,>-Panic High,A-Abnormal,AA-Critical Abnormal Performed at: 01 =G [facility] [address] [place] [address] Allison Miller MD, IGP, RFX APTIMA HPV ASCUNote.NOMS HealthcareComment on above:TESTS RESULT FLAG UNITS REF RANGE LAB DIAGNOSIS: 02 NEGATIVE FOR INTRAEPITHELIAL LESION OR MALIGNANCY. Specimen adequacy: 02 Satisfactory for evaluation. No endocervical component is identified. Performed by: [facility] [employer] Former ([facility]) . 02 Note: Note 02 The [...] <-Panic Low,>-Panic High,A-Abnormal,AA-Critical Abnormal Performed at: 02 WB [facility] [address] [place] [address] Allison Miller MD, Performed at: =G - [address], [place] [id number] Senior Manufacturing Engineer: Allison Miller MD, Phone: [phone] Performed at: [address] [place], [place] [id number] Senior Manufacturing Engineer: Allison Miller MD, Phone: [phone] BRUSH-SPATULA CERVIX ENDOCERVIX CLINISYNCNOOK HealthcareANA w/Reflex if POSon 85-89-4779Roihdgw Ab Ql (S) NegativeInvalid Interpretation CodeNegativeAdams County HospitalComment on above:Result Comment: Performed at: [address] [id number] [phone] PhD Fara Redmondformed By: #### [id number] #### [facility] [address] [place], [place] [address]Uvsbpbyrjz 90-04-5640Evopntle [Mass/Vol]15.2 microgram/dL Invalid Interpretation Code6.2-19.4[facility] CenterComment on above: Result Comment: Please Note: The reference interval and flagging for this test is for an AM collection. If this is a PM collection please use: Cortisol PM: 2.3-11.9 Performed at: [address] [id number] [phone] PhD Fara Redmondformed By: #### [id number] #### [facility] [address] [place], [place] [address]FKP and LHon 24-54-4386Wlrvaccgwry Qn7.7 m[IU]/mLInvalid Interpretation CodeAdams County HospitalComment on above:Result Comment: Adult Female Range Follicular phase 3.5 - 12.5 Ovulation phase 4.7 - 21.5 Luteal phase 1.7 - 7.7 Postmenopausal 25.8 - 134.8 Performed at: [address] [id number] [phone] PhD Fara Redmondformed By: #### [id number] #### [facility] [address] [place], [place] [address]Sswhxvtc Qn8.6 m[IU]/mLInvalid Interpretation CodeAdams County HospitalComment on above:Result Comment: Adult Female Range Follicular phase 2.4 - 12.6 Ovulation phase 14.0 - 95.6 Luteal phase 1.0 - 11.4 Postmenopausal 7.7 - 58.5Performed By: #### [id number] #### [facility] [address] [place], [place] [address]Gshwedb Lvlon 77-83-1093Koypqxi Qn9.4 u[IU]/mLInvalid Interpretation Code2.6-24.9Ad[facility] County HospitalComment on above:Result Comment: Performed at: [address] [id number] [id number] PhD Fara Redmondformed By: #### [id number] #### [facility] [address] [place], [place] [address]RP Quanton 25-88-4162Qbeorkvqvp factor Qn[IU]/mLInvalid Interpretation Code<14.0Ad[facility] County HospitalComment on above:Result Comment: Performed at: [address] [id number] [id number] PhD Fara Redmondformed By: #### [id number] #### [facility] [address] [place], [place] [address]R5 Totalon 05-85-8711Q5 [Mass/Vol]131 ng/dLInvalid Interpretation Xccq53-079MgjjrwAdams County HospitalComment on above:Result Comment: Performed at: [address] [id number] [id number] PhD Fara Redmondformed By: #### [id number] #### [facility] [address] [place], [place] [address]RWMyx 22-49-6162Ztvlgnf [Mass/Vol]4.3 g/dLNormal3.3-5.0Ad[facility] County HospitalComment on above:Performed By: #### [id number] #### [facility] [address] [place], [place] [address]Dyijfxn/Globulin (S) [Mass conc ratio]1.6Volifv8.1-2.2FMercy Health Springfield Regional Medical CenterComment on above:Performed By: #### [id number] #### [facility] [address] [place], [place] [address]THU [Catalytic activity/Vol]82 Int._Unit/JSnzagr97-07LhdnvxAdams County HospitalComment on above:Performed By: #### [id number] #### [facility] [address] [place], [place] [address]MFU No additional P-5'-P [Catalytic activity/Vol]13 Int._Unit/L Normal6-46Ad[facility] County HospitalComment on above:Performed By: #### [id number] #### [facility] [address] [place], [place] [address]Ivdwl gap [Moles/Vol]11 mmol/LNormal6-16Ad[facility] County HospitalComment on above:Performed By: #### [id number] #### [facility] [address] [place], [place] [address]LCJ [Catalytic activity/Vol]16 Int._Unit/LNormal5-43Ad[facility] County HospitalComment on above:Performed By: #### [id number] #### [facility] [address] [place], [place] [address]Rnkhiaocd [Mass/Vol]0.8 mg/dLNormal0.0-1.1FMercy Health Springfield Regional Medical CenterComment on above:Performed By: #### [id number] #### [facility] [address] [place], [place] [address]Ubguucv [Mass/Vol]9.4 mg/dLNormal8.9-11.1FMercy Health Springfield Regional Medical CenterComment on above:Performed By: #### [id number] #### [facility] [address] [place], [place] [address]Ojnklibo [Moles/Vol]104 mmol/JWmbovh236-832AfqssiAdams County HospitalComment on above:Performed By: #### [id number] #### [facility] [address] [place], [place] [address]KH8 [Moles/Vol]27 mmol/NIolfzy68-38DiquanAdams County Hospital Comment on above:Performed By: #### [id number] #### [facility] [address] [place], [place] [address]Zoguobtzzg [Mass/Vol]0.7 mg/dLNormal0.5-1.3FMercy Health Springfield Regional Medical CenterComment on above:Performed By: #### [id number] #### [facility] [address] [place], [place] [address]Vmkgljxq (S) [Mass/Vol]3.0 g/dLNormal1.4-4.0Ad[facility] County HospitalComment on above:Performed By: #### [id number] #### [facility] [address] [place], [place] [address]Wngmmay [Mass/Vol]89 mg/vGBtzuxb31-902FxjpzbAdams County HospitalComment on above:Performed By: #### [id number] #### [facility] [address] [place], [place] [address]Fmforwjqp [Moles/Vol]4.1 mmol/LNormal3.5-5.3FMercy Health Springfield Regional Medical CenterComment on above:Performed By: #### [id number] #### [facility] [address] [place], [place] [address]Rkwaapo [Mass/Vol]7.3 g/dLNormal6.0-7.8Ad[facility] County HospitalComment on above:Performed By: #### [id number] #### [facility] [address] [place], [place] [address]Saeazl [Moles/Vol]138 mmol/RTibehx586-509LgawbzAdams County HospitalComment on above:Performed By: #### [id number] #### [facility] [address] [place], [place] [address]Fnnj nitrogen [Mass/Vol]10 mg/dLNormal5-21Ad[facility] County HospitalComment on above:Performed By: #### [id number] #### [facility] [address], [place] [address]Ldjm nitrogen/Creatinine [Mass ratio]14 No YnjeoJvlahg03-02 [facility] HospitalComment on above:Performed By: #### [id number] #### [facility] [address] [place], [place] [address]PjeQ6ncv 34-36-0753SxQ4a (Bld) [Mass fraction]5.1 %Normal<=5.9 [facility] HospitalComment on above:Performed By: #### [id number] #### [facility] [address] [place], [place] [address]Ivvsa Panelon 45-20-8975Yqucggrhhid [Mass/Vol]153 mg/dLNormal 120-200Ad[facility] County HospitalComment on above:Performed By: #### [id number] #### [facility] [address] [place], [place] [address]Rqougkzmymv in HDL [Mass/Vol]45 mg/dLInvalid Interpretation CodeAdams County HospitalComment on above:Result Comment: '>= 60 LOW RISK' '<= 40 HIGH RISK'Performed By: #### [id number] #### [facility] [address] [place], [place] [address]Hqekzpakhpb in LDL [Mass/Vol]102 mg/dLNormal<=129Ad[facility] County HospitalComment on above:Performed By: #### [id number] #### [facility] [address] [place], [place] [address]Rbhcqddzoaz in VLDL [Mass/Vol]26 mg/dLNormal7-40Ad[facility] HospitalComment on above:Performed By: #### [id number] #### [facility] [address] [place], [place] [address]Fevedpcgxxel [Mass/Vol]129 mg/dLNormal<=149Ad[facility] County HospitalComment on above:Performed By: #### [id number] #### [facility] [address] [place], [place] [address]K3 & TSHon 15-29-2676JIN Qn2.00 m[IU]/LNormal0.34-5.60Ad[facility] County HospitalComment on above:Performed By: #### [id number] #### [facility] [address] [place], [place] [address]T8 [Mass/Vol]9.5 microgram/dLHigh4.6-9.1FMercy Health Springfield Regional Medical CenterComment on above:Performed By: #### [id number] #### [facility] [address], [place] [address]lDWJuw 40-00-9575qNAD965 mL/min/1.73 l7Etpbba>=59Ad[facility] County HospitalComment on above:Performed By: #### [id number] #### [facility] [address] [place], [place] [address]Sh Panel InformationOrdered By: Manjula Nevarez on 42-25-2049Swgkf Strep (POC)Medina HospitalBhCG Quanton 43-58-9651Tsqi hCG Qnt <1Uiazgm0-7WvskuaMercy Health Springfield Regional Medical CenterComment on above:Result Comment: 'F NON < 1 - 3' ' 0.2 - 1 WEEK = 5 TO 50' ' 1 - 2 WEEKS = 50 - 500' ' 2 - 3 WEEKS = 100 - 5000' ' 3 - 4 WEEKS = 500 - 91336' ' 4 - 5 WEEKS = 1000 - 97960' ' 5 - 6 WEEKS = 72450 - 636034' ' 6 - 8 WEEKS = 40314 - 291654' ' 8 - 12 WEEKS = 72289 - 338020'Performed By: #### [id number] #### [facility] [address] [place], [place] [address]Ktmcwbsis Orderon 13-24-9353Crifiqxsk Order [id number]#1.00TIFFNormalAdams County HospitalUS ABD RIGHT UPPER QUADRANTon 92-89-5761CO ABD RIGHT UPPER QUADRANT* * *Final Report* [...] hydronephrosis. Ascites: None. IMPRESSION: No acute findings. Security Incident Response Engineer: DOC Transcribe Date/Time: Mar 13 2023 11:44A Dictated by : TANNER RAMSEY MD This examination was interpreted and the report reviewed and electronically signed by: TANNER RAMSEY MD on Mar 13 2023 11:49AM EST [id number] Memorial Hospital and HomeURGICAL PATHOLOGY Ordered By: Ayan Donaldson on 71-75-6947Zice ReportSurgical Pathology Report Case: [id number] Authorizing Provider: Shelly Parsons DO Collected: 03/03/2023 10:24 AM Ordering Location: Ambulatory Surgery Received: 03/03/2023 10:41 PM Pathologist: Ayan Donaldson MD Specimens: A) - SMALL INTESTINE BIOPSY, r/o celiac B) - STOMACH BIOPSY, r/o h pylori C) - STOMACH (GASTRIC) POLYP BIOPSY, polyps [facility] Work Phone: Diagnosis Comment z2jreSVjMUNzgNGqIWFlX0abidGqBWDxcLQzH6QhrkprQBxgCC8pVN0jlSkjgPVekCUdVGSoQtJmx7sg h378eTNyq5wsZTUBmwgl wFg7uYeiS31ai7X2LlasO97geUOmSRK6GDOxIZJdsEVyIOZlFWI4UHLrrNLkO2mcVDSvGS1midovWQee IFnzBEXjeQP3HKSraDLf I1CdXLReCOdsPRXitxq0SrXzZi3oxJUspKykISezMMDbGEUlBVjvAWFjRkFmYdenOd7eYx7iXLOhqYWj YgZrbIRtYWX0fG2qaKPs zvdocunsdXZzWEMfTAhpNI61sRAoUPDuND1jDZkeyLFjwEqaSTkhrKJ9SUQgMJLhHHJzknFeYOJjFoOW jYBkQLSfarIyruFqgywxKP8kFHHtTmFjsHDklPCxuVTvh6IkeMTfsSwuJB1voJ6hnHNvcQ== [facility] Work Phone: FINAL DIAGNOSIS n0phgVEzWVVgzKTtNTTkL8gpnyMzKTEnqWFuV5VxdalgCLmiSL2pJJ6oyQgyeJWcmOSnXNUcBmAln0sr y414hUSkq0wgSZTGhhqk mQz3cEorK88gr9B2WxpuW27rrVNsGJP8VHFaYTKguJYxQGWbWYH4CVPkaYKoZ5vpHYXiAR5hjwnqZZpt ZDhhFHGtjHR6RQGkcDYl P0JoCLCzFYlhNDDkodb4EwUwLi0glTKdiVgnZEwuXNLgZTGhUCigIQLyIuUzGK4aDALrHHPtuR4rZJCz o8MvfRurkIfbEJEnNOTy SOkfQMVrd3VdRH43V45zYKE1kDBpMA3eMPQvIHjal8O0aDBaBNGxq3YhMGrxrZfxWNGmjfgiRPXpWj2l P6QjzUEkqWdgFjkncUI5 ZmwihH9zVD3sS3HqSSKnnKOxMIfoHqBjG09eudDqq5XuK7KndOTuJgRqlFLlj7Kpv7j7lDAlSFFqlOl7 JQLhCOG1lg8pRZZteF63 tTHuEJEwYQ0cLACvSRKqjnOmUFXmfLIkRLWnTQOnHRrrRC87bzHzHeIcGMB8yvptTY40uO64oRKxbLuo BNFnyNPhj0Jxx3y2xWYp gvMoeHEzap4msHvxQHXikt1wgRUamIR7CjdiSCOzwGFnHHAbJAH2s14gU4oxCHJsfAnmycvaDsgpkLAz YTM1BFpzaqAiIXVNhR1l fVUoC3blnvXjwL0veKOxSFCesoYyUISwwYKwUTRdYFSlOAsfBR27EC9nVEghn7YjiQFxs4c9tpZuKa38 lTBqKG15F15wCNO2bWPf MZBaldGgrLJqIYg8wNJiqAfqi5xsTzltSRKzeFGjRSeXRLZrNV0bZp1eZYMfBMDlgi5=[facility] Work Phone: Gross Description o8otrJPtUMQggJBoJJUdP0xenkRlAKMraDZjK5TybosrIGdqXH8kGG2zpRqhcHUyhHTvWWMzRrLcq7qq l134zWQqm7faLMYBgqby vHp8vRnoH44tk5D2OcxvT88buKVlVWE9JKWlMIYaiMZnUVAdHZD0XMPfcRWvL3fxVLOzHU7awpsrMKfq YUnyXMHhfJS0XLLweQOo K4SmBRSeLDaaXDCvoei3QzDtXq3reMQbxCeuMZllTnbnnKucw7IagJWfGVmbBXGuCQLbIYajMSXuN8MZ GDMpSLY8DeSuDICpEKBE WML6LIpbBFJ9GRXMRXIwPMvkHpT7YKZbJVBoRNUDWKRyIjG6GSChCBCqSCcziNDaVZAzGVBgNKFqOIxb phB5d9dnXGZetTKgAAW3 WSthfZQcRJKiMSHuFWyxMyQWTxZwWkQ0Cdp8JbDzPsBjGRg8UGuyR1ADQBMwZST3ZgWmVKU1XpW3ZLu6 UDICRk0cBJIgGPS0Icp1 HvEdASM1XxPuYYr1XPSbKEkquyQjNUmnMcdqGFqgL33nlSCcIFfpxUTnbxoboxIdZEKrOWMEQJgAQLrJ MPPQBXuRGHSFUW8DF4kz hCFhQIBomvSvr5RgXFghqBzoUCDsHgQlsPdypZ2cOrDcQAHGQLIvqSPgWXNojeIuy1PlHLovrdKiyfOt xmGbvYpxK6Veg6PaoEOr GCVtb0bzBPCfq3U6MZDps7D7KYCbLUHoxANxqedlYR70LXzrCO58NCrtGU9zSDZnMcCXi2PrrLm1TOV4 En4uaFRpQAHrztBrixDr K1Hkt0O8xIUgZKrvWEZxiAPcDPsiOQXzHIXwlSUZv9ImRQtyPGGdJ3MyW5FfunC6RSBlosgsFowfaAxl s2CmwTIbEVqnMWZcUJAw BIzzDVCzW1NUCMAeUWI2LaCjCFYaRRl8CZd8UG1JVfUcHWSlSEMtRygsLQEmWMn0HXnoUG3ZKHQbGtA9 RvX1LJN6ICJ0Heb5XBhf bJUdCUacb2EyOwGiDLAfRAhdevX8QKRdhzQvt4YcUTMgRHHdV2gdAhHrKIdmolHtXDXjGFHTJ20RY9pf QklPUFNZXHBhclxwYXJk HVNzMlEsNLXqY6czJkGmPQWkCAzcQXYtNyKhNsGqJUj8VIPlzV7oVn0evMNpzW7eNJXfQA48cXUzwNzw ZQLzOABsbjWjIpO2WA0q YsGxi93dARKbQhXppRrwk6MxTSRyD6WqM7D8oH5vFLYdMXPtPqC7FRMxHfK8XXAeEaVfcK4zIH49PHsw tTTddEZuvBA9ITWzvS9m i73jIYLwc5FurIGcRyQntBQdFNCmxlRlf1LbIVtjuDpfXJDbHkP2JEOnsSOrWOT2XY3bqBdsAKW2XBbj FWQdE3DfP4HuBUgqKWP6 WPXeOmWmJWTuRC8DJpXtYCBoNgq6QkWtUxX8AOu7AZMHFgPuTiLmIgs7AaU0KtsaQDt1JQw2KEhGNjMr FGJmZZekDlr6KRQ4KUd0 QIEmJCBhNqMfIOMjARLsOBwzwKXmGK2acDepLEZbVEHaPHB8IFHipCXQq8CjTNNqTsRsDzCEYqEDQR2A QUNIIChHQVNUUklDKSBQ K6xPBRCATI6LH5emqOMyJDLkgsLij9PfCSuzfOqnIYYuLkDdzYqhoK6wEkTjBRLNXDOtePBbWEPbabNz b2XsBAxrqhAjmlEjwCat DRFgVPPjegAzUxQ4UP4uQnFjq00aYDNnFaQhwQzfw8WxZYLsZ1IlF8G7oR3bIMXnYFSvAmM3LIHzZxG9 AXIePvHakB1vHS84ALhh vAZxzNXsqIX1AHXvpD9st09bAMDhk8JbtKBvKfjhJMVefUYpYFNeXKGhmvPUaq4wodHhnVQbyK2peJyg mdRbKEPaw5FsMXJrNWNk N6ebsvEbAF0bKRRvfP8rBtvoALEpEDSSaVAzmLUlJZHnJoebM9pvnaNtUC7cBNYSRWR0THH1EGwrOUNj rXMvZAWiXjXqIRFpI9fa UMSeZFvFGS0nyD6dGNRwYZSxPHIrMvHlVLvnMfYXPHu+z1btgMwfk9OseAFiYD94FHItnGRlTUV4XK7y zJhfUPZ9Rsnsqmvsu Clinic Work Phone: [facility] x2kzqHXgDFBkiTPzUjHxJSGwUCQrl2arXQNuuUVrMbZmOvSoDzPwTmuebDYqISEtBjGgx0lnc863lIPq v8hhHPCqTmB3hDEhJVGj dBNsJ705VMNxSFzmq1uay2CfDWVceLLpc6X4OJIGsjkmjEf5mVbqR09nn9D0SfvaK9dyOFIkVMAcF8Ta RF9oWRJaLda8TLS4MLH4 UQZhHVEuF8XrMN0tEXDpqNPmBVj5l3emhUhuUVRxISN7u5yiCKzhyeGuIG9zte0fsEi6e2iyilJzVVNt IRLnnFDVWXFyY6IbvSwi Pr2foTx3sDgvDuewMRW0Tkm6FC4nbb20ara3wSabCHHgwillWqZ2BAchXTGsxmxsKLs1BKfqCCHkeAX5 HVNrzZWzP8RuBCEwYY6g yhk2SEK1FJyrFKBkKvM1RDMlbNIkMURnpFrnLYiem954JBD5ZdJuAW8iY0Kfj9S9xC0qiJErFOVopHQx IcDfNCRwik0wtRXmQVdv v3RrTFE2pwM5dJDumFOiHRHsCG85Dpjtz0AbZizex3FvS79tjAZ2QTueq0qkLC3yItB2asGgCMzzc8xo yU8iQbJ9JEbtER4jEG5l GHRwfC0afusjZYTzEqOwjsysPHQqvRmhqgKtRx5nrWrrJWA4XJkbE7glwP1mXuH1ZFaxB9fgbV6tGIy4 ZRcrlSL4IUJmuQ3lYW0s mozyr0whMDzwAMylQNByviO3izO4GOZrqNWuI6VbtP3bRMVwEI7xzltrp9bkYJY8MQfeYFHzTAM7ToQy DALjh3Qbuxg6SbHln3Gc yOByIQzjV03gv481WPVkxqEkC4sxyNZuoyixtKKvtiesCIujsfA3FYKyGJFsGAghWCDkBNIoBiZxbNYv ZzEwMzNcaGljaFxmMVxk EmJsEQDtSGxyW6ccHyHcRtVbBcUCmJVsbz4teIcgQOhsgELayWUmtKX7yW3tBFHnbfUldf4dISNljUWW bDB0EUudbfTjZ5vbfajm RJNxkPZ2nNV7JLrvn4VryISuTKJgDKClBSIEb2XwfW2nYWKyJRAJxUS7ZAqufoIlOI7IWTO7BUOhFJEc HTPNTQBdEIL6MZN6OCj2 YKyiiWLfPKOdogykILJiSAFtKWxkGGStENFiKpSjrZkixQ5aKnUpZfZxUqfnMS4bLGNqY6blqATuPUOg LROuO6eeFiAqeC0nrXpb VPfmMyKzBkQlKheduLVdkETGDMGedtK8h6R1VJpihOPwskavYWoticCnZAsbspnsRAPyNKsrV1qlOkFh FJCtpNlgCKees9TlLJWzQKKmFwExJXnnJEY7l7R4HA1ynefgTy2zBUSlTILbY23vXHWXZrBaSPIiat2= [facility] Work Phone: [facility] Work Phone: ANES POSTPROC EVALon [id number] POSTPROC EVALHNO ID: [id number] Author: Ralph Childs APRN.CRNA Service: ? Author Type: Nurse Skein Yarn Dyer Type: Anesthesia Postprocedure Evaluation Filed: 03/03/2023 10:32 [...] Anesthesia Observations No Documentation SIGNATURE: Ralph Childs APRN.[employer] ATTENDANT PATIENT NAME: Saroj Membreno DATE: March 03, 2023 TIME: 10:31 AM CSN: [id number] [facility] Study observation Narrativeon [id number] [facility] Patient Name: Saroj Membreno Procedure Date: 03/03/2023 10:10 AM Date of : 2000 Admit Type: Outpatient Age: 23 Room: [facility] 3 Gender: Female Note Status: Finalized [...] referring physician. Procedure Code(s): --- Professional --- 95702, Esophagogastroduodenosc (more content not included)...PROVATIONLouis [facility] CenterRadiology Study observation (narrative)[facility] PHYSICALon [id number] PHYSICALHNO ID: [id number] Author: Shelly Parsons DO Service: Gastroenterology Author [...] organomegaly. Sedation Plan: MAC Additional Comments: None Gust[facility] MannCleveland Clinic [facility] PROGon [id number] PROGHNO ID: [id number] Author: Meghann Kwan RN Service: Nursing Author [...] By: Meghann Escalante RN In Department: [facility]Bar[facility]: [id number] Author: Bia Price RN Service: ? Author [...] By: Bia Price RN In Department: AMBULATORY SURGERYMercy Health St. Rita's Medical CenterSUGICAL PATHOLOGYon [id number] REPORTNoMain Campus Medical Center on above:Order Comment: Specimen Type: TISSUE SPECIMENOrdering Facility: [facility] Address: [address] [place] [address] Comment: Surgical Pathology Report Case: [id number] Authorizing Provider: Shelly Parsons DO Collected: 03/03/2023 10:24 AM Ordering Location: Ambulatory Surgery Received: 03/03/2023 10:41 PM Pathologist: Ayan Donaldson MD Specimens: A) - SMALL INTESTINE BIOPSY, r/o celiac B) - STOMACH BIOPSY, r/o h pylori C) - STOMACH (GASTRIC) POLYP BIOPSY, polypsPerformed By: #### S ####[facility] LABORATORYCLIA [id number] [place] [address] [place] STATES OF AMERICADIAGNOSIS COMMENTB, C. No Helicobacter pylori organisms are identified. No intestinal metaplasia is seen. There is no evidence of dysplasia or malignancy.NormalCleveland Clinic Fairview Hospital on above:Order Comment: Specimen Type: TISSUE SPECIMENOrdering Facility: [facility] Address: [address] [place], [place] [address]Performed By: #### S ####FREDONIA LABORATORYCLIA [id number] [place] [id number] [facility] on above:Order Comment: Specimen Type: TISSUE SPECIMENOrdering Facility: [facility] Address: [address] [place], [place] [address]Result Comment: A. Duodenum, biopsy: - Small bowel mucosa with no diagnostic abnormality. B. Stomach, biopsy: - Superficial fragment of gastric mucosa with reactive gastropathy-type changes. - Separate fragments of gastric oxyntic-type mucosa with no diagnostic abnormality. C. Stomach, polyps, biopsies: - Fundic gland polyp. - Separate fragment of gastric oxyntic-type mucosa with foveolar hyperplasia. JEL 03/05/2023 Performed By: #### S ####FREDONIA LABORATORYCLIA [id number] [address] on above:Order Comment: Specimen Type: TISSUE SPECIMENOrdering Facility: [facility] Address: [address] [place], [place] [address]Result Comment: Diagnostic interpretation performed at [facility], [address] [place] [address] CLIA# [id number] Hand Quilter: Guilherme Gonzalez M.D.Performed By: #### S ####FREDONIA LABORATORYCLIA [id number] [address] on above:Order Comment: Specimen Type: TISSUE SPECIMENOrdering Facility: [facility] Address: [address] [place], [place] [address]Result Comment: A. SMALL INTESTINE BIOPSY Received in [...] in one cassette. Gross examination performed at [facility], [address] [place] [address] March 04, 2023 1:32 AMPerformed By: #### S ####FREDONIA LABORATORYCLIA [id number] [address] GI endoscopyon 08-06-6473Undtl GI endoscopyCoulee [facility] Center [facility]astro[facility] Gastrointestinal Endoscopy Patient Name: Saroj Membreno Procedure Date: 03/03/2023 10:10 AM Date of : 2000 Admit Type: Outpatient Age: 23 Room: [place] [address] Gender: Female Note Status: Finalized Attending MD: [...] referring physician. Procedure Code(s): --- Professional --- 36321, Esophagogastroduodenoscopy, flexible, transoral; with biopsy, single or multiple Diagnosis Code(s): --- Professional --- K22.89, Other specified disease of esophagus K31.7, Polyp of stomach and duodenum Z01.818, Encounter for other preprocedural examination E66.01, Morbid (severe) obesity due to excess calories CPT copyright 2020 [employer]. All rights reserved. The codes documented in this report are preliminary and upon automotive manufacturer review may be revised to meet current compliance requirements. Scope In: 10:21:13 AM Scope Out: 10:25:[address] Shelly ParsonsDO Shelly DO 03/03/2023 10:30:44 AM This report has been signed electronically by Shelly Parsons DO Number of Addenda: 0 Note Initiated On: 03/03/2023 10:10 AM Estimated Blood Loss: Estimated blood loss was minimal.NormalThe Christ HospitalANES PRE-OPon 22-31-3954TKBI PRE-OPHNO ID: [id number] Author: Ralph Childs APRN.TANK FARM ATTENDANT Service: ? Author Type: Nurse Skein Yarn Dyer Type: Anesthesia Preprocedure Evaluation Filed: 03/03/2023 10:13 [...] 48 hours of Surgery/Procedure. SIGNATURE: Constance Schumacher APRN.TANK FARM ATTENDANT PATIENT NAME: Saroj Membreno DATE: February 16, 2023 TIME: 2:56 PM CSN: [id number] [facility] Hospital 02-11-2023 CNOVOffice Visit (TAMRA) SAROJ MEMBRENO ([id number]) 2 F Date Time Provider Department 02/11/23 8:30 AM NURSE CARD [facility] MARIA M BARBOZA During your visit today, we recorded the following information about you: Roya Lawler RN 02/11/2023 8:34 AM Signed Ekg completed. Pt with no voiced complaints. Provider cc'd of completion. Referring Provider: ALLIE LARSON [[id number]] Allergies As of Date: 02/11/2023 (No Known Allergies) Date Reviewed: 02/04/2023 Reviewed by: Sasha Xie RD - Fully Assessed Reason for Visit: Cardiology Follow Up [1732] Visit Diagnoses:Pre-op evaluation [Z01.818] Class 3 severe obesity with serious comorbidity and body mass index (BMI) of 40.0 to 44.9 in adult, unspecified obesity type (HCC) [E66.01, Z68.41] Order(s):ECG COMPLETE [ECG01] Order #: [id number]. #:[id number] Prescriptions as of 02/11/2023 - ARIPiprazole (ABILIFY) [...] completion. Encounter Status:Closed by ROYA LAWLER on 02/11/23[facility] COMPLETEon 09-56-2420OLJ COMPLETEVentricular Rate : 59 BPM Atrial Rate : 59 BPM P-R Interval : 166 ms QRS Duration : 74 ms Q-T Interval : 408 ms QTC Calculation(Bazett) : 403 ms Calculated P Belt : 35 degrees Calculated R Belt : 66 degrees Calculated T Belt : 39 degrees SINUS BRADYCARDIA WITH SINUS ARRHYTHMIA BORDERLINE ECG Confirmed by STALIN HARRIS MD ([id number]) on 02/12/2023 9:13:18 PM NAME : SAROJ MEMBRENO PID : [id number] : 2000 Gender : Female Race : ORD : [id number] Procedure Date : Feb 11 2023 08:29:59 Edit Date : Feb 12 2023 21:13:23 Diagnosis: SINUS BRADYCARDIA WITH SINUS ARRHYTHMIA BORDERLINE ECG Confirmed by STALIN HARRIS MD ([id number]) on 02/12/2023 9:13:18 PM Test Reason : Location : 192 : AVCRD Overread By : STALIN HARRIS MD Edited By : STALIN HARRIS MD Referred By : ALLIE LARSON Acquired by : ,[facility]on 09-77-9489TRCYKgyvywpze (WIQ) SAROJ MEMBRENO ([id number]) 2 F Date Time Provider Department 02/10/23 CECE OBANDO During your visit today, we recorded the following information about you: [facility] 02/10/2023 10:12 AM Signed Smoking Cessation Navigation Outcome of contact: Spoke with Intervention Chosen By Patient: Other Comments: Patient quit last week. [employer] Silver Solderer/Smoking Cessation Navigator: Cece YoungSelect [facility] Allie Larson APRN.[employer]BER 02/10/2023 11:32 AM Signed Noted, thank you [...] 01/19/2023 Encounter Status:Closed by CECE OBANDO on 02/10/23[facility] 10-06-8424MCZXBzlcdn Visit (BMIREJ) HASEEBSAROJ ([id number]) 2 F Date Time Provider Department 01/30/23 9:30 AM NORBERTO MALONE BMIMARIA M During your visit today, we recorded the [...] goal weight prior to liquid fast: Per dairy equipment installer Surgically Cleared with completion of the below: [...] probably and potential med (more content not included)...NormalThe Christ HospitalXR CHEST 2V FRONTAL/LAT on 79-58-6828UQ CHEST 2V FRONTAL/LAT* * *Final Report* * [...] tissues: Unremarkable. IMPRESSION: No acute radiographic abnormality. Security Incident Response Engineer: PSCB Transcribe Date/Time: Jan 30 2023 12:41P Dictated by : ROD BELL MD This examination was interpreted and the report reviewed and electronically signed by: ROD BELL MD on Jan 30 2023 12:43PM EST [id number] HospitalPNon [id number] Telephone (WIQ) SAROJ MEMBRENO ([id number]) 2 F Date Time Provider Department 01/21/23 CECE OBANDO WIQ During your visit today, we recorded the following information about you: Cece [facility]bandoSelect [facility] 01/21/2023 11:57 AM Signed Smoking Cessation Navigation Outcome of contact: Left Message Comments: A voicemail has been left for this patient regarding Tobacco Cessation support options. If this patient has any further questions they can email us at or call us at [phone]. [employer] Silver Solderer/Smoking Cessation Navigator: Cece YoungSelect [facility] Allergies As of Date: 01/21/2023 (Not on File) Date Reviewed: 01/19/2023 Reviewed by: Allie Larson APRN.[employer] - Fully Assessed Reason for Visit: Smoking [...] 01/19/2023 Encounter Status:Closed by CECE OBANDO on 01/21/23[facility] 91-33-0705VZTRKyrhpg Visit (GENBMI) SAROJ MEMBRENO ([id number]) 2 F Date Time Provider Department 01/19/23 9:00 AM ALLIE LARSON GENI During your visit today, we recorded the following information about you: Pulse Blood pressure Weight Height 84/minute 111/53 114.9 kg 1.622 m Last Period 12/29/22 Allie Larson APRN.[employer]BER 01/19/2023 10:06 AM Signed [facility] Obesity Medicine Initial Bariatric Surgery [...] Characterization of diet: Unstructured and skip meals. Ticket Collector of impaired eating habits:denies Eating Disorder no [...] Anxiety and depression Asthma No history of ID, COPD, +asthma, peptic ulcer disease, +GERD, dyslipidemia, [...] Size: Large Adult) Pul (more content not included)...NormalThe Christ HospitalCULTURE ABSCESSon 06-73-4921WMFKWUM ABSCESSCulture Observations: NO GROWTH OF ANAEROBES AT [...] 2 S F Vancomycin 1 S FNormalThe [facility], IncComment on above:Performed By: #### ABCESCX #### [facility] Laboratory [address] [place] [address] [address] Magali PhillipsAMYLASEon 88-09-0780Uhmslev [Catalytic activity/Vol]33 U/LNormal 25-115The [facility], IncComment on above:Performed By: #### IRA, CMP, LIPA #### [facility] [address] [place] [address] [address] Magali ChanC AUTO DIFFon 14-39-4240AFVO #0.0 103/ulNormal0.0-0.1The [facility], IncComment on above:Performed By: #### CBC #### [facility] [address] [place] [address] [address] Magali PhillipsBasophils/100 WBC (Bld)0.2 %Normal0.2-2.0[facility] on above:Performed By: #### CBC #### [facility] Laboratory [address] [place] [address] Dr. Magali Medina #0.0 103/ulNormal0.0-0.7The [facility], IncComment on above: Performed By: #### CBC #### [facility] [address] [place] [address] [address] Magali Tomasosinophils/100 WBC (Bld)0.3 %Critically low0.9-7.0The [facility], IncComment on above:Performed By: #### CBC #### [facility] [address] [place] [address] [address] Magali Tomasrythrocyte distribution width (RBC) [Ratio]12.4 %Ebnhyv36.0-15.0 [facility]ment on above:Performed By: #### CBC #### [facility] [address] [place] [address] Dr. Magali PhillipsHematocrit (Bld) [Volume fraction]43.8 %Wkfxze88.0-48.0[facility] Hospitalment on above:Performed By: #### CBC #### [facility] [address] [place] [address] Dr. Magali PhillipsHemoglobin (Bld) [Mass/Vol]14.9 g/eVAvkmzt93.0-16.0The [facility], IncComment on above:Performed By: #### CBC #### [facility] [address] [place] [address] Dr. Magali Florez #0.03 10e3/ulNormal0.00-0.03The [facility], IncComment on above:Performed By: #### CBC #### [facility] [address] [place] [address] Dr. Magali Florez %0.2 %Normal0.0-0.5The [facility], IncComment on above: Performed By: #### CBC #### [facility] [address] [place] [address] Dr. Magali Campbell #2.6 103/ulNormal1.2-3.8The [facility], IncComment on above:Performed By: #### CBC #### [facility] [address] [place] [address] Dr. Magali Linghocytes/100 WBC (Bld)21.0 %Jvievx17.5-60.0The [facility], IncComment on above:Performed By: #### CBC #### [facility] [address] [place] [address] Dr. Magali MckeonUAL DIFF REQNONormalThe [facility], IncComment on above: Performed By: #### CBC #### [facility] [address] [place] [address] Dr. Magali Valentin (RBC) [Entitic mass]30.2 rwYdyqfu64.7-34.0The [facility], IncComment on above:Performed By: #### CBC #### [facility] [address] [place] [address] Dr. Magali Valentin (RBC) [Mass/Vol]34.0 g/cBVhmvks15.9-35.2The [facility], IncComment on above:Performed By: #### CBC #### [facility] [address] [place] [address] Dr. Magali Valentin (RBC) [Entitic vol]88.8 uGIcygkz12.0-99.0The [facility], IncComment on above:Performed By: #### CBC #### [facility] [address] [place] [address] Dr. Magali Danielson #1.0 103/ulCritically high0.3-0.8The [facility] Comment on above:Performed By: #### CBC #### [facility] [address] [place] [address] Dr. Magali Huffmanocytes/100 WBC (Bld)8.0 %Normal1.7-12.0The [facility] Comment on above:Performed By: #### CBC #### [facility] [address] [place] [address] Dr. Magali Buchanan #8.6 103/ulCritically high1.4-6.5The [facility] Comment on above:Performed By: #### CBC #### [facility] [address] [place] [address] Dr. Magali Livingstonutrophils/100 WBC (Bld)70.3 %Mwbyjk12.0-75.0The [facility], IncComment on above:Performed By: #### CBC #### [facility] [address] [place] [address] Dr. Magali Smith mean volume (Bld) [Entitic vol]9.6 fLNormal9.5-13.5The [facility], IncComment on above:Performed By: #### CBC #### [facility] [address] [place] [address] Dr. Magali PhillipsPLT279 103/chRfpsml678-786Qoo [facility], IncComment on above: Performed By: #### CBC #### [facility] [address] [place] [address] Dr. Magali PhillipsRBC4.93 106/ulNormal4.20-5.40The [facility], IncComment on above:Performed By: #### CBC #### [facility] [address] [place] [address] Dr. Magali PhillipsWBC12.2 103/ulCritically high4.0-11.0The [facility], IncComment on above:Performed By: #### CBC #### [facility] [address] [place] [address] Dr. Magali PhillipsCULTURE URINEon 63-45-3223SQNKKQU URINECulture Observations: MODERATE GROWTH OF MIXED GENITAL DEE. NO POTENTIAL PATHOGENS SEEN.NormalOhio Valley Surgical HospitalComment on above:Performed By: #### URCX #### [facility] [address] [place] [address] Dr. Magali Son URINE PROFILEon 60-01-1784Nvutobzwc Ql (U)NegativeNormal NEGATIVEThe [facility], IncComment on above:Performed By: #### LINCOLN UMICRO #### [facility] [address] [place] [address] Dr. Magali PhillipsClarity (U)CLEARNormalCLEAROhio Valley Surgical HospitalComment on above: Performed By: #### LINCOLN UMICRO #### [facility] [address] [place] [address] Dr. Magali Abebe (U)LT. YELLOWNormalYELLOWOhio Valley Surgical HospitalComment on above:Performed By: #### LINCOLN UMICRO #### [facility] [address] [place] [address] Dr. Magali Ramos micrscopic examination will be performed if indicated. NormalOhio Valley Surgical HospitalComment on above:Performed By: #### LINCOLN UMICRO #### [facility] [address] [place] [address] Dr. Magali PhillipsGlucose Ql (U)NegativeNormalNEGATIVEOhio Valley Surgical HospitalComment on above:Performed By: #### LINCOLN UMICRO #### [facility] [address] [place] [address] Dr. Magali PhillipsHemoglobin Ql (U)MODERATEAbnormalNEGATIVEOhio Valley Surgical Hospital Comment on above:Performed By: #### LINCOLN UMICRO #### [facility] [address] [place] [address] Dr. Magali Ghotra Ql (U)NegativeNormalNEGATIVEThe [facility], IncComment on above:Performed By: #### LINCOLN UMICRO #### [facility] [address] [place] [address] Dr. Magali PhillipsLEUKOCYTESMODERATEAbnormalNEGATIVEThe [facility], IncComment on above:Performed By: #### LINCOLN UMICRO #### [facility] [address] [place] [address] Dr. Magali Mckeon Ql (U)NegativeNormalNEGATIVEThe [facility], IncComment on above:Performed By: #### LINCOLN UMICRO #### [facility] [address] [place] [address] Dr. Magali PhillipspH (U)5.5 [pH]Normal5-9The [facility], IncComment on above: Performed By: #### LINCOLN UMICRO #### [facility] [address] [place] [address] Dr. Magali PhillipsSPEC GRAVITY1.107Nvxiwk1.005-<=1.025The [facility], IncComment on above:Performed By: #### LINCOLN UMICRO #### [facility] [address] [place] [address] Dr. Magali Lee PROTEINNegativeNormalNEGATIVE/ TRACEThe [facility] Comment on above:Performed By: #### LINCOLN UMICRO #### [facility] [address] [place] [address] Dr. Magali Maddox MICRO INDINDICATEDNormalThe [facility], IncComment on above: Performed By: #### LINCOLN UMICRO #### [facility] [address] [place] [address] Dr. Magali Redding Qn (U)0.2 {Nickie'U}/dLNormal0.2 - 1.0The [facility], IncComment on above:Performed By: #### LINCOLN UMICRO #### [facility] [address] [place] [address] Dr. Magali Boyer 91-68-5878Wxggae [Catalytic activity/Vol]62.0 U/L Critically low73.0-393.0The [facility], IncComment on above:Performed By: #### IRA, CMP, LIPA #### [facility] [address] [place] [address] Dr. Magali PhillipsOCC BLD IMMUNO SCREENon 67-95-6773HNPTXS BLOODNegativeNormal NEGATIVEThe [facility], IncComment on above:Performed By: #### OBSCRN #### [facility] [address] [place] [address] Dr. Magali PhillipsPROF 14(COMP METB)on 15-87-3328Ginxjev [Mass/Vol]4.0 g/dLNormal 3.4-5.0The [facility], IncComment on above:Performed By: #### IRA, CMP, LIPA #### [facility] [address] [place] [address] Dr. Magali PhillipsAlbumin/Globulin [Mass ratio]1.0 {ratio}NormalThe [facility], IncComment on above:Performed By: #### IRA, CMP, LIPA #### [facility] [address] [place] [address] Dr. Magali [place] [Catalytic activity/Vol]117 U/LCritically gkig53-107Keq [facility] MD, Cancer Centerment on above:Performed By: #### IRA, CMP, LIPA #### [facility] [address] [place] [address] Dr. Magali Valente [Catalytic activity/Vol]24 U/LJkittj15-68Hmi [facility], Cancer Centerment on above:Performed By: #### IRA, CMP, LIPA #### [facility] [address] [place] [address] Dr. Magali Duncan gap [Moles/Vol]12.5 mmol/LNormalThe [facility] on above:Performed By: #### IRA, CMP, LIPA #### [facility] [address] [place] [address] Dr. Magali Feldman [Catalytic activity/Vol]17 U/HYorrwv20-72Ogj [facility], IncComment on above:Performed By: #### IRA, CMP, LIPA #### [facility] [address] [place] [address] Dr. Magali PhillipsBilirubin [Mass/Vol]1.0 mg/dLNormal0.2-1.0The [facility] Comment on above:Performed By: #### IRA, CMP, LIPA #### [facility] [address] [place] [address] Dr. Magali PhillipsCalcium [Mass/Vol]8.8 mg/dLNormal8.5-10.1The [facility] Comment on above:Performed By: #### IRA, CMP, LIPA #### [facility] [address] [place] [address] Dr. Magali PhillipsChloride [Moles/Vol]106 mmol/TQektgs40-325Vjf [facility] Comment on above:Performed By: #### IRA, CMP, LIPA #### [facility] [address] [place] [address] Dr. Magali PhillipsCO2 [Moles/Vol]24.2 mmol/SFkdrlj94.0-32.0[facility] Comment on above:Performed By: #### IRA, CMP, LIPA #### [facility] [address] [place] [address] Dr. Magali PhillipsCreatinine [Mass/Vol]0.71 mg/dLNormal0.55-1.02The [facility], IncComment on above:Performed By: #### IRA, CMP, LIPA #### [facility] [address] [place] [address] Dr. Magali TomasGFR-AF GREENLANDIC>60Normal>=60The [facility], IncComment on above:Performed By: #### IRA, CMP, LIPA #### [facility] [address] [place] [address] Dr. Magali TomasGFR-NON AF GREENLANDIC>60Normal>=60The [facility], IncComment on above:Performed By: #### IRA, CMP, LIPA #### [facility] [address] [address] [address] Magali PhillipsGlobulin (S) [Mass/Vol]4.0 g/dLNormTriHealth Good Samaritan HospitalComment on above:Performed By: #### IRA, CMP, LIPA #### [facility] [address] [address] [address] Magali PhillipsGlucose [Mass/Vol]91 mg/xOWkbzim62-544Lnh [facility] Comment on above:Performed By: #### IRA, CMP, LIPA #### [facility] [address] [address] [address] Magali PhillipsPotassium [Moles/Vol]3.7 mmol/LNormal3.5-5.1The [facility] Comment on above:Performed By: #### IRA, CMP, LIPA #### [facility] [address] [address] [address] Magali PhillipsProtein [Mass/Vol]8.0 g/dLNormal6.4-8.2The [facility] Comment on above:Performed By: #### IRA, CMP, LIPA #### [facility] [address] [address] [address] Magali PhillipsSodium [Moles/Vol]139 mmol/MMitlmb143-859Nrl Select [facility] Comment on above:Performed By: #### IRA, CMP, LIPA #### [facility] Laboratory [address] [address] [address] Magali PhillipsUrea nitrogen [Mass/Vol]8.0 mg/dLNormal7.0-18.0The [facility] IncComment on above:Performed By: #### IRA, CMP, LIPA #### [facility] Laboratory [address] [address] [address] Magali PhillipsUrea nitrogen/Creatinine [Mass ratio]11.3 mg/mgNoWooster Community HospitalComment on above:Performed By: #### IRA, CMP, LIPA #### [facility] Laboratory [address] [address] [address] Magali PhillipsURINE MICROSCOPIC ONLYon 74-12-1425VDVUMEIQLXRGLFgjcfwvyGRBG SEEN The [facility] Cancer Centerment on above:Performed By: #### ERUR, UMICRO #### [facility] Laboratory [address] [address] [address] Magali Pereira identified Cx Nom (U)INDICATEDNoalThWood County Hospital on above:Performed By: #### ERUR, UMICRO #### [facility] Laboratory [address] [address] [address] Magali HarrisENAbnormalNONE SEENTriHealth [facility]ar[facility] on above: Performed By: #### ERUR, UMICRO #### [facility] Laboratory [address] [address] [address] Magali Valera LM Nom (Urine sed)NONE SEENNormalNONE SEENTriHealth Good Samaritan Hospital on above:Performed By: #### LINCOLN, UMICRO #### [facility] Laboratory [address] [place] [address] Dr. Magali Carrthelial cells LM Ql (Urine sed)FEWAbnormalNONE SEEN /RAREThe [facility] on above:Performed By: #### LINCOLN, UMICRO #### [facility] Laboratory [address] [address] [address] Magali Macdonald [facility]NACMC [facility] on above: Performed By: #### LINCOLN, UMICRO #### [facility] Laboratory [address] [address] [address] Magali MylesNONE SEENNormalNONE SEENTriHealth Good Samaritan Hospital on above:Performed By: #### LEIEZERR, UMICRO #### [facility] Laboratory [address] [address] [address] Magali PhillipsUpeoxYUT4-26Iimlcote5-8WbiTriHealth Good Samaritan Hospital on above:Performed By: #### ERUR, UMICRO #### [facility] Laboratory [address] [address] [address] Magali SilvaEENAbnormalNONE SEENTriHealth Good Samaritan Hospital on above: Performed By: #### ERUR, UMICRO #### [facility] Laboratory [address] [place], [place] [address] Dr. Magali PhillipsWBC5-10AbnormalNONE SEENThe [facility] IncComment on above: Performed By: #### SOCO STARK #### [facility] Laboratory [address] [place], [place] [address] Dr. Magali PhillipsUrinalysis - AUTOMATEDon 84-37-1368Gysrldsvgj (U)clearBzzAgent Other Bilirubin Ql (U)HubChillaClaritics [employer] Other Color (U)yellowBzzAgent Other Glucose Ql (U)[employer] Other Hemoglobin Ql (U)[employer] Other Ketones Ql (U)[employer] Other Leukocyte esterase Test strip Ql (U)traceBzzAgent Other Nitrite Ql (U)[employer] Other pH (U)6.5 [pH][employer] Other Protein Ql (U)[employer] Other Specific gravity (U) [Rel density]1.025[place] [employer] Other Urobilinogen (U) [Mass/Vol]1.0 mg/dLClaritics [employer] Other Urinalysis - AUTOMATEDBzzAgent Other Urine Cultureon 54-36-9131Rofaodkv identified Cx Nom (U)[employer] Other Automated erythrocytes count in urine sediment (number/area)Ordered By: Michelle Arthur on 07-09-8723CQR Auto (Urine sed) [#/Area]3-4 [HPF]0-4FSumma Health Akron CampusAutomated leukocytes count in urine sediment (number/area)Ordered By: Michelle Arthur on 07-68-1639ZWM Auto (Urine sed) [#/Area]5-9 [HPF]0-4FSumma Health Akron CampusBilirubin Test strip Ql (U)Ordered By: Michelle Arthur on 18-71-3690Qhyqnqxax Ql (U) NegativeNegativeMedina HospitalColor Auto (U)Ordered By: Michelle Arthur on 02-66-3508Xebeb (U)YellowYellowMedina HospitalHCG ( test) IA.rapid Ql (U)Ordered By: Michelle Arthur on 64-86-4589YIH ( test) Ql (U)NegativeMedina Hospital Ketones Auto test strip (U) [Mass/Vol]Ordered By: Michelle Arthur on 07-04-2022 Ketones (U) [Mass/Vol]NegativeNegativeMedina Hospital Laboratory - UrinalysisOrdered By: Michelle Arthur on 53-79-7163Ykrhmtd casts LM Ql (Urine sed)0-8 [LPF]0-8Medina HospitalNitrite Test strip Ql (U)Ordered By: Michelle Arthur on 06-46-7156Qzmutxw Ql (U)NegativeNegative [facility] HospitalProtein Auto test strip (U) [Mass/Vol]Ordered By: Michelle Arthur on 40-08-0689Aqtxkxr (U) [Mass/Vol]NegativeNegative [facility]pecific gravity Auto test strip (U) [Rel density]Ordered By: Michelle Arthur on 28-67-7657Mfgfccfy gravity (U) [Rel density]1.0161.001-1.030[facility] Columbusquamous epithelial cells detection in urine sediment by light microscopyOrdered By: Michelle Arthur on 07-19-6721Ixgoeumkhm cells.squamous LM Ql (Urine sed)1-2 [HPF]0-2 [facility] HospitalUrine bacteria detection by automated method Ordered By: Michelle Arthur on 56-06-1007Tqrzwrjr Auto Ql (U)None seenNone Seen [facility] HospitalUrine clarity by refractometry automatedOrdered By: Michelle Arthur on 11-52-7930Lcdklnd Refractometry automated (U)ClearClear [facility] HospitalUrine culture routineOrdered By: Michelle Ortizimore on 27-88-1987Nbxrapcf identified Cx Nom (U)2 DaysMedina HospitalUrine glucose measurement by automated test strip (mass/volume) Ordered By: Michelle Arthur on 32-76-4676Pwwaeet Auto test strip (U) [Mass/Vol] Normal mg/dLNormalMedina HospitalUrine hemoglobin detection by automated test stripOrdered By: Michelle Arthur on 45-51-9850Unuzkuzngw Auto test strip Ql (U)NegativeNegativeMedina HospitalUrine leukocyte esterase detection by automated test stripOrdered By: Michelle Ortizimore on 93-62-7095Krcxapwyu esterase Auto test strip Ql (U)2+NegativeMedina HospitalUrobilinogen Auto test strip (U) [Mass/Vol]Ordered By: Michelle Ortizimjohann on 23-55-7298Mepimusxjelg (U) [Mass/Vol]Normal mg/dLNoMansfield HospitalpH Auto test strip (U)Ordered By: Michelle Arthur on 68-50-4323iO (U)7.0 [pH]5.0-9.0[facility] COVID Quick Testingon 56-08-1734GhtmawCdjquvtaCpkep [employer] Other Vital Signs Date TimeVital SignValuePerforming FttfbodcrEkfiyxzb25-84-0807 11:46-0500Body mass index (BMI) [Ratio]53.21 kg/m2Ira ELMORE Work Phone: [facility] HospitalFtmlynejht02-27-4379 11:46-0500Body valuua228.26 kgIra ELMORE Work Phone: [facility] HospitalHtehjnaioh58-51-0588 11:46-0500Diastolic blood brpbubsy21 mm[Hg]Ira ELMORE Work Phone: [facility] HospitalFaxirebtbr09-72-0788 11:46-0500Systolic blood otsxyjjb908 mm[Hg]Ira Jensen PA Work Phone: [facility] HospitalUcjqvgfyej59-77-1016 10:04-0400Body mass index (BMI) [Ratio]52.66 kg/p3Wqshl Thomas DO Work Phone: [facility] HospitalWelgfneaam85-76-0242 10:04-0400Body xifsxs848.83 kgCorey Thomas DO Work Phone: [phone]-[facility] HospitalEehbmqhcyx55-44-8025 10:04-0400Diastolic blood mm[Hg]Rodrigo Thomas DO Work Phone: [phone])039-[address] [place] [address]-13-2025 10:04-0400Systolic blood lmsoucgt083 mm[Hg]Rodrigo Thomas DO Work Phone: [phone] [place], [place] [address]Kgempidyef23-70-3172 14:48-0400Body mass index (BMI) [Ratio]52.58 kg/m2Amy Camila PA Work Phone: [phone] [place], [place] [address]Gjvwsihgnj32-98-7831 14:48-0400Body .63 kgAmy Whitsett PA Work Phone: [phone] [place] [address]-18-2025 14:48-0400Diastolic blood ssalrxas44 mm[Hg]Ira Jensen PA Work Phone: 1([phone])387-[address] [place], [place] [address]Atvxkescau26-32-5525 14:48-0400Systolic blood fjeywmld126 mm[Hg]Ira Jensen PA Work Phone: [facility] HospitalLsqdohjwdm15-31-8882 10:25-0400Body mass index (BMI) [Ratio]52.66 kg/m2Amy Camila PA Work Phone: 1([phone] [place], [place] [address]Mehkohuugq26-45-5892 10:25-0400Body iwkyaj851.83 kgAmy Camila PA Work Phone: 1([phone] [place], [place] [address]Rubdfjrlkj69-56-8174 10:25-0400Diastolic blood rypdlruf54 mm[Hg]Ira Jensen PA Work Phone: [address] [address]Wcpaaxcbpm22-76-4061 10:25-0400Systolic blood snrgejvw896 mm[Hg]Ira Jensen PA Work Phone: [facility] HospitalIwguupkplr36-32-3452 22:42-0400Body fmycqq967.48 cmMedina Hospital09-15-2025 22:42-0400Body tlhlxsofziz13.3 [degF][facility]09-15-2025 22:42-0400Body gavavg151.7 kg [facility]09-15-2025 22:42-0400Diastolic blood cjfkhauf50 mm[Hg][facility]09-15-2025 22:42-0400Heart rate81 /min [facility]09-15-2025 22:42-0400Respiratory rate22 /min [facility]09-15-2025 22:42-2478TuP4% (BldA) [Mass fraction]98 %[facility]09-15-2025 22:42-0400Systolic blood mm[Hg][facility]08-28-2025 09:01-0400 Body mass index (BMI) [Ratio]52.97 kg/x1Igghk Thomas DO Work Phone: [facility] HospitalPbmxllkpvt04-58-7288 09:01-0400Body .63 kgCorey Thomas DO Work Phone: [facility] HospitalKlytfpznuc76-07-7854 09:01-0400Diastolic blood wxqikkvm90 mm[Hg]Rodrigo Thomas DO Work Phone: [facility] HospitalSgisvbqaiv41-21-5263 09:01-0400Systolic blood msournko979 mm[Hg]Rodrigo Thomas DO Work Phone: [facility] HospitalXctpcsfipq68-70-6582 09:37-0400Body mass index (BMI) [Ratio]53.85 kg/x1Detmcop Visci DO Work Phone: [facility] HospitalAgwepmgnjb15-02-5678 09:37-0400Body .89 kgRichard Visci DO Work Phone: [facility] HospitalVwfxhvcqpx55-21-1903 09:37-0400Diastolic blood ztuvzbrb77 mm[Hg]Wesley Visci DO Work Phone: [facility] HospitalMhgovwbazq64-76-4382 09:37-0400Systolic blood awokgpty539 mm[Hg]Wesley Browning DO Work Phone: [facility] HospitalPucbpvclxp98-22-4025 10:13-0400Body .48 cmMed[facility] Hospital06-24-2025 10:13-0400Body mass index (BMI) [Ratio]54.8 kg/y2HhrpndbzpMedina Hospital06-24-2025 10:13-0400Body ruscipouqcl54.4 [degF][facility]06-24-2025 10:13-0400Body tvjvox315.07 kgMed[facility] Hospital06-24-2025 10:13-0400Diastolic blood zbvtrsev96 mm[Hg][facility]06-24-2025 10:13-0400 Heart rate76 /[facility]06-24-2025 10:13-1308QjT5% (BldA) [Mass fraction]98 %[facility]06-24-2025 10:13-0400 Systolic blood hfqpfafk782 mm[Hg][facility]06-18-2025 10:43-0400Body swyxhcbagui30 [degF][facility]06-18-2025 10:43-0400Diastolic blood tyoeqefg58 mm[Hg][facility] 11-09-2024 10:43-0400Heart rate76 /[facility] 11-09-2024 10:43-0400Respiratory rate18 /[facility] 11-09-2024 10:43-0005IeF8% (BldA) [Mass fraction]98 %[facility]06-18-2025 10:43-0400Systolic blood hqigaddr49 mm[Hg][facility]06-16-2025 11:53-0400Body mass index (BMI) [Ratio]53.32 kg/m2Ira ELMORE Work Phone: [facility] HospitalCtjmtibtbd01-53-5609 11:53-0400Body lotqow893.53 kgIra ELMORE Work Phone: [facility] HospitalMdedvgxbmw48-07-0724 11:53-0400Diastolic blood preoeviv67 mm[Hg]Ira ELMORE Work Phone: [facility] HospitalRdamslvswv00-24-3882 11:53-0400Systolic blood mm[Hg]Ira ELMORE Work Phone: [facility] RehabDbjuponmgj61-84-9028 09:22-0400Body dtbsii890.48 cmMed[facility] Hospital09-10-2024 09:22-0400Body mass index (BMI) [Ratio]49.6 kg/h5TceffixkuMedina Hospital09-10-2024 09:22-0400Body gvaybjpnzig86.1 [degF][facility]09-10-2024 09:22-0400Body akwtfl255.09 kgMed[facility] Hospital09-10-2024 09:22-0400Heart rate 81 /[facility]09-10-2024 09:22-0400Respiratory rate18 /[facility]09-10-2024 09:22-5222EiC8% (BldA) [Mass fraction]99 %[facility]08-28-2024 12:0400Body height 157.48 cmMedina Hospital08-28-2024 12:01-0400Body mass index (BMI) [Ratio]48.9 kg/i0FdfyhcsodMedina Hospital08-28-2024 12:01-0400 Body othppdzayhy38.3 [degF][facility]08-28-2024 12:010400Body selzwo406.27 kgMed[facility] Hospital08-28-2024 12:01-0400Heart abno674 /[facility]08-28-2024 12:01-0400Respiratory rate18 /[facility]08-28-2024 12:01-8009YdX1% (BldA) [Mass fraction]99 %[facility] 11-13-2023 10:26-0400Body rydifp597.48 cmMed[facility] 11-13-2023 10:26-0400Body mass index (BMI) [Ratio]49 kg/h1AajiljkjuMedina Hospital06-21-2024 10:26-0400Body zyggrtuyjzp18.8 [degF][facility]06-21-2024 10:26-0400Body .56 kgMed[facility]06-21-2024 10:26-0400Heart rate82 /[facility]06-21-2024 10:26-5342AeT4% (BldA) [Mass fraction]98 %[facility]04-24-2024 09:45-0400Body iedpjy295.48 cmMed[facility] Hospital04-24-2024 09:45-0400Body mass index (BMI) [Ratio]48.4 kg/m2 [facility]04-24-2024 09:45-0400Body .6 [degF][facility]04-24-2024 09:45-0400Body ehidgn497.25 kg [facility]04-24-2024 09:45-0400Heart rate51 /[facility]04-24-2024 09:45-0400Respiratory rate18 /[facility]04-24-2024 09:45-6351IpA6% (BldA) [Mass fraction]98 % [facility]10-10-2023 10:45-0400Heart rate67 /minCatherine Ly DO Work Phone: [facility]10-10-2023 10:45-0400Respiratory rate 12 /minCatherine Ly DO Work Phone: [facility]10-10-2023 10:45-1403BeK8% (BldA) [Mass fraction]100 %Shelly Ly DO Work Phone: [facility]10-10-2023 10:40-0400Diastolic blood fudodnox19 mm[Hg]Shelly Ly DO Work Phone: [facility]10-10-2023 10:40-0400Systolic blood yjdgbpih365 mm[Hg]Shelly Ly DO Work Phone: [facility]09-13-2023 10:25-0400Body yfgfmq889.[address] Work Phone: [facility]09-13-2023 10:25-0400Body jfumxy474.[address] Work Phone: [facility]08-28-2023 09:24-0400Body leqxtb110.2 cmSkaterina Larson 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.[employer] Work Phone: [facility]08-28-2023 09:24-0400Body .92 kgShmani Larson 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.[employer] Work Phone: [facility]08-28-2023 09:24-0400Diastolic blood sbpstymr49 mm[Hg]Allie Larson 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.[employer] Work Phone: [facility]08-28-2023 09:24-0400Heart rate84 /min Allie Larson 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.[employer] Work Phone: [facility]08-28-2023 09:24-0400Systolic blood zmlukttq656 mm[Hg]Allie Larson 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.[employer] Work Phone: [facility]02-13-2023 17:00-0500Body wberng660.02 Dali Enrique Other [employer] Other 02-13-2023 17:00-0500Body mass index (BMI) [Ratio] 48.35 kg/o7CzeigtRadhika Enrique Other [employer] Other 02-13-2023 17:00-0500Body xsbzrfrtcok64 [degF]Radhika Enrique Other [employer] Other 02-13-2023 17:00-0500Body csilog393.83 kgRadhika Enrique Other [employer] Other 02-13-2023 17:00-0500Diastolic blood mm[Hg] Radhika Iva Other [employer] Other 02-13-2023 17:00-0500Respiratory rate18 /minRadhika Enrique Other [employer] Other 02-13-2023 17:00-8353EhY8% (BldA) [Mass fraction]99 % Radhika Iva Other [employer] Other 02-13-2023 17:00-0500Systolic blood rmfbenky976 mm[Hg] Radhika Iva Other [employer] Other 02-10-2023 11:16-0500Body zfpvhi206.02 cmMed[facility]02-10-2023 11:16-0500Body hnlnkssvovy11.8 [degF][facility]02-10-2023 11:16-0500Body oypmju822 kgMed[facility]02-10-2023 11:16-0500Diastolic blood mm[Hg][facility]02-10-2023 11:16-0500Heart rate75 /[facility]02-10-2023 11:16-0500Respiratory rate22 /[facility]02-10-2023 11:16-4099BbG3% (BldA) [Mass fraction]100 %[facility]02-10-2023 11:16-0500Systolic blood chpxyvtg401 mm[Hg] [facility]09-05-2022 15:10-0400Body rjofwe116.02 Davidlakeharley JovelIva Other [employer] Other 09-05-2022 15:10-0400Body mass index (BMI) [Ratio] 46.05 kg/e1Hnifrq Iva Other [employer] Other 09-05-2022 15:10-0400Body ivvfakbcarg58 [degF]Radhika Enrique Other [employer] Other 09-05-2022 15:10-0400Body .94 kgRadhika Enrique Other [employer] Other 09-05-2022 15:10-0400Diastolic blood yeeujmti58 mm[Hg] Radhika Enrique Other [employer] Other 09-05-2022 15:10-0400Respiratory rate16 /minRadhika Enrique Other [employer] Other 09-05-2022 15:10-2114SwS0% (BldA) [Mass fraction]100 % Radhika Enrique Other [employer] Other 09-05-2022 15:10-0400Systolic blood mm[Hg] Radhika Enrique Other [employer] Other 06-20-2022 17:30-0400Body ykisem540.02 John Disla Other [employer] ([employer] Other 06-20-2022 17:30-0400Body mass index (BMI) [Ratio] 45.52 kg/t9NarfqagryMaria R Disla Other [employer] ([employer] Other 06-20-2022 17:30-0400Body pynxmeyzlru20.2 [degF] Maria R Disla Other [employer] Other 06-20-2022 17:30-0400Body nsfolq257.58 kgStdarleneulyssesaide Naif Other [employer] ([employer] Other 06-20-2022 17:30-0400Diastolic blood smvurvfu57 mm[Hg] Maria R Naif Other [employer] Other 06-20-2022 17:30-0400Respiratory rate16 /minSluigiemily Disla Other [employer] Other 06-20-2022 17:30-1435HkK8% (BldA) [Mass fraction]99 % Maria Remily Disla Other [employer] Other 06-20-2022 17:30-0400Systolic blood ermoples909 mm[Hg] Maria Remily Disla Other [employer] Other 05-23-2022 12:00-0400Body lwtqwa765.02 cmSluigiulyssesaide Naif Other [employer] Other 05-23-2022 12:00-0400Body mass index (BMI) [Ratio] 46.58 kg/s2Mveuupjstemily Disla Other [employer] Other 05-23-2022 12:00-0400Body xqbfsgrhyfd09.2 [degF] Maria Remily Disla Other [employer] Other 05-23-2022 12:00-0400Body .3 kgStdarleneemily Disla Other [employer] Other 05-23-2022 12:00-0400Diastolic blood cagndigb57 mm[Hg] Maria R Vacaault Other [employer] ([employer] Other 05-23-2022 12:00-0400Respiratory rate16 /minSclarence Naif Other [employer] ([employer] Other 05-23-2022 12:00-2335PxZ9% (BldA) [Mass fraction]98 % Maria R Naif Other [employer] ([employer] Other 05-23-2022 12:00-0400Systolic blood vrnmihtg491 mm[Hg] Maria R Naif Other [employer] Other 11-06-2021 14:45-0400Body .4 [degF] Maria R Naif Other [employer] Other 11-06-2021 14:45-0613NiN2% (BldA) [Mass fraction]98 % Maria R Naif Other [employer] Other 10-14-2021 16:55-0400Body yuxhdx410.02 cmSluigiulyssesaide Naif Other [employer] Other 10-14-2021 16:55-0400Body mass index (BMI) [Ratio] 47.11 kg/b1Rlplcsjxk Naif Other [employer] Other 10-14-2021 16:55-0400Body vqsuowonnni40.6 [degF] Maria Remily Disla Other [employer] Other 10-14-2021 16:55-0400Body .66 kgStliya Naif Other [employer]FS ([employer] Other 10-14-2021 16:55-0400Diastolic blood jeiydhyn94 mm[Hg] Maria R Naif Other [employer] Other 10-14-2021 16:55-0400Respiratory rate18 /minSluigiulyssesaide Naif Other [employer] Other 10-14-2021 16:55-9812AdA9% (BldA) [Mass fraction]98 % Maria R Naif Other [employer] Other 10-14-2021 16:55-0400Systolic blood ogqrmndx327 mm[Hg] Maria R Naif Other [employer] Other 10-05-2021 14:00-0400Body exybck004.02 cmSclarence Naif Other [employer] Other 10-05-2021 14:00-0400Body mass index (BMI) [Ratio] 46.05 kg/u0Uipkgojrb Naif Other [employer] Other 10-05-2021 14:00-0400Body zfmhusqsial71.5 [degF] Maria R Naif Other [employer] Other 10-05-2021 14:00-0400Body acieos764.94 kgStliya Naif Other [employer] Other 10-05-2021 14:00-3326CkT1% (BldA) [Mass fraction]99 % Maria R Disla Other [employer] Other Encounters Encounter DateEncounter TypeCare ProviderFacilityStart: 04-03-2025 End: 84-49-3366Dvjixe outpatient visit 15 minutesIra ELMORE Work Phone: [facility] [place] OBGYNComment on above:23 weeks gestation of ([facility]); Marginal placenta, antepartum ([facility]); Second trimester ([facility]); Diabetes mellitus screeningStart: 04-03-2025 End: 25-02-3694pyjayxwbqaKWC Leonel AvailableStart: 03-28-2025 End: 83-09-8565Qdbiiyitb Result EncounterCorey Thomas DO Work Phone: noms External Department UnsolicitedStart: 03-28-2025 End: 95-91-3862Imxqywvmb Result EncounterCorey Thomas DO Work Phone: noms External Department UnsolicitedStart: 03-13-2025 End: 07-18-8570Xzdrreghi Result EncounterCorey Thomas DO Work Phone: noms External Department UnsolicitedStart: 03-13-2025 End: 83-39-9863Lundnnkeo Result EncounterCorey Thomas DO Work Phone: noms External Department UnsolicitedStart: 03-13-2025 End: 76-79-7737ptimnehmktCYD CAMILANot AvailableStart: 03-06-2025 End: 83-91-5368Wepkiz flowsheetCorey Thomas DO Work Phone: [facility]BGYNStart: 03-06-2025 End: 55-21-9525Cicryx flowsheetCorey Thomas DO Work Phone: [facility] [place] OBGYNStart: 03-06-2025 End: 88-83-3446Lustnf outpatient visit 15 minutesCorey Thomas DO Work Phone: [facility] OBGYNComment on above:Screening, , for anatomic survey ([facility]); Second trimester ([facility]); 19 weeks gestation of ([facility])Start: 03-06-2025 End: 98-16-5425dippioahzqGTXVT ISAÍASGIORGIOONot AvailableStart: 02-09-2025 End: 97-82-6643Ejwbcl outpatient visit 15 minutesIra ELMORE Work Phone: [facility] [place] OBGYNComment on above:15 weeks gestation of ([facility]); Second trimester ([facility]); Blood pressure check; Nonintractable headache, unspecified chronicity pattern, unspecified headache type; NauseaStart: 02-09-2025 End: 02-97-6610Rjqxvpr encounter statusIra ELMORE Work Phone: NO HealthcareStart: 02-09-2025 End: 44-09-0869eytcgyzxxeYNA RAMEYNot AvailableStart: 02-09-2025 End: 76-03-1703Vfpbpq flowsBrittanie ELMORE Work Phone: [facility] OBGYNStart: 02-09-2025 End: 38-38-0991Rzdpss Mary Jo ELMORE Work Phone: [facility] [place] OBGYNStart: 02-07-2025 End: 91-02-4463Bezcph Mary Jo ELMORE Work Phone: [facility]BGYNStart: 02-07-2025 End: 84-82-2261Zahfzr Mary Jo ELMORE Work Phone: [facility] [place] OBGYNStart: 02-07-2025 End: 32-06-3834Hsxgrlbt Result EncounterIra ELMORE Work Phone: NO External Department UnsolicitedStart: 02-07-2025 End: 56-60-0670qrlhnbfuqiYTT RAMEYNot AvailableStart: 02-07-2025 End: 22-55-4274Xxjwwh outpatient visit 15 minutesIra ELMORE Work Phone: [facility] OBGYNComment on above:Vaginal discharge; Second trimester ([facility]); 15 weeks gestation of ([facility]); Nausea and vomiting in ([facility])Start: 02-06-2025 End: 56-45-6179Woicvnzss department patient visit-Emergency Room Work Phone: Start: 01-19-2025 End: 54-35-1098Wmqvzi flowsheetCorey Thomas DO Work Phone: [facility] [place] [facility]BGYNStart: 01-19-2025 End: 91-30-1032Zitfze flowsheetCorey Thomas DO Work Phone: [facility]BGYNStart: 01-19-2025 End: 88-56-4774Xxteycjpt Result EncounterCarmita Will SHANK RANDER Work Phone: noms External Department UnsolicitedStart: 01-19-2025 End: 61-72-1075Iuaoub outpatient visit 15 minutesCorey Thomas DO Work Phone: [facility]BGYNComment on above:GA: 50n4mPvwkk: 01-19-2025 End: 44-21-5063cgwwdtubhqPERBS FAZIONot AvailableStart: 12-19-2024 End: 18-09-2185mowfvceahxTGO RAMEYNot AvailableStart: 12-19-2024 End: 53-65-9883Ccgngn outpatient visit 25 minutesRichard A Visci DO Work Phone: [facility]BGYNComment on above:GA: 4z0hHpeyx: 12-19-2024 End: 51-02-9181qfzsefryuvOXHAVHY A VISCINot AvailableStart: 12-02-2024 End: 38-19-2046Nkdvmzyu flow sheetNoms Sws Ob NurseNOMS SWS OBComment on above: GA: 26x5mZhrtk: 12-02-2024 End: 43-49-9738dipphszybkQLU RAMEYNot AvailableStart: 11-15-2024 End: 46-93-9737Bkzrnzg encounter procedureFred [facility]MORE-[facility] Work Phone: Start: 11-09-2024 End: 54-42-8193Biwcnic encounter procedureRajwinder Banks APRN-[facility] Work Phone: Start: 11-07-2024 End: 18-59-6734Tuduuy flowsheetIra ELMORE Work Phone: [facility] BCP OBStart: 11-07-2024 End: 07-97-2652Rbbnjn flowsheetIra ELMORE Work Phone: [facility] BCP OBStart: 11-07-2024 End: 22-80-1159Oqeazxmbd Result EncounterIra ELMORE Work Phone: n[facility] External Department UnsolicitedStart: 11-07-2024 End: 68-66-8062Yryxtpo encounter procedureIra ELMORE Work Phone: [facility] HealthcareStart: 11-07-2024 End: 65-48-4260Hakjcvtj preventive med est patient 18-39 yrsAmy Camila ELMORE Work Phone: noms BCP OBComment on above:Well woman exam with routine gynecological examStart: 11-07-2024 End: 08-73-7188zeeeztdwfaEKA RAMEYNot AvailableStart: 03-22-2024 End: 71-70-2612vkticllfiuONALTUSDU BREYAWFacility:FTMCStart: 02-02-2024 End: 79-24-5159Tyjpquya ReferredMiami Valley Hospital Ctr-Lab Main [place] Work Phone: Start: 02-02-2024 End: 94-34-0075mcacvakbegIGM [facility] Work Phone: Start: 02-02-2024 End: 54-12-3376Ngyjlta encounter procedureAt[facility] Work Phone: Start: 01-20-2024 End: 25-79-5973rpibkkvmsdAYU [facility] Work Phone: Start: 01-20-2024 End: 45-69-2444Thnlgyo encounter procedureAt[facility] Phys[facility] Work Phone: Start: 11-13-2023 End: 95-21-7245zegmzmcapxMRD [facility] Work Phone: Start: 11-13-2023 End: 82-77-5657Ikjbfgv encounter procedureAtrium Health [facility] Phys[facility] Work Phone: Start: 09-16-2023 End: 18-40-7660kzpqrsgbikVpkprdkspWVUMedicine [facility] Work Phone: start: 09-16-2023 End: 82-83-3097Gftxopl encounter procedureAtrium Health [facility] Physician [facility] Work Phone: Start: 06-30-2023 End: 28-47-8670npahgdujvvJCRINT R KLONKFacility:FTMETHODIST HOSPITAL OF SACRAMENTOtart: 04-06-2023 End: 65-24-5236cbbhihckbcGJZZB GOODPASTERFacility:[facility] Start: 39-11-8205osewtqdqauEGYOBK WILSONFacility:[facility]ertart: 03-12-2023 End: 69-23-4596Hmvshyywkhzvt examination doneUltra 2 Work Phone: [facility]otart: 03-12-2023 End: 09-36-5940Eawkmanaxw hospital visit by physicianUltra [facility] Work Phone: [facility] Radiology UltrasoundComment on above: Pre-op evaluation [Z01.818]Start: 03-03-2023 End: 15-34-7821zhjnrjzlsqAEPKGGRCZ LYFacility:[facility] Hospitaltart: 03-03-2023 End: 04-07-8164Uznphxfjrq hospital visit by physicianShelly Parsons DO Work Phone: ambulatory SurgeryComment on above:Class 3 severe obesity with serious comorbidity and body mass index (BMI) of 40.0 to 44.9 in adult,unspecified obesity type (HCC) [E66.01, Z68.41]Start: 85-86-4419hckjovhouh Nurse [facility] Work Phone: GastroenterologyComment on above:EGD instructions Start: 90-52-4485X-mail encounter from caregiverNFirstHealth [facility] Work Phone: rEM [facility]ENTERtart: 02-11-2023 End: 86-99-2777bidriqcbycJAOVCZ WILSONFacility:[facility] Hospitaltart: 02-11-2023 End: 01-19-2105zduxdvsteiBCSFPV WILSONFacility:[facility] Hospitaltart: 57-43-2136Kzqmemdgf for other preprocedural examinationCATHERINE [facility] DublinStart: 02-11-2023 End: 67-17-1779Jiyhycl encounter procedureNurse [facility] Rej Work Phone: CardiologyComment on above:Pre-op evaluation; Class 3 severe obesity with serious comorbidity and body mass index (BMI) of 40.0 to 44.9 in adult,unspecified obesity type (HCC)Start: 02-11-2023 End: 32-42-3024Lmyrfvcvckqze examination doneNonecore health – [place] Rej Work Phone: [facility] Toledotart: 61-11-4773Azexykzkr encounter CeceLone Peak HospitalComment on above:Smoking CessationStart: 02-04-2023 End: 35-52-0368kahnuyvvkwTSHCI PRESCOTTFacility:[facility] HospitalStart: 02-04-2023 End: 02-72-6593gcykuwcvdnZggvb [address] RD Work Phone: NutritionComment on above:Body mass index (BMI) 40.0- 44.9, adult (HCC) (Primary Dx); Dietary counseling and surveillanceStart: 02-04-2023 End: 86-17-8703Ejaekdyomzdl consultation with Beth Xie RD Work Phone: [facility]ITALtart: 80-40-9877Rttiv [facility] Main Work Phone: NeurologyStart: 94-84-0801ekwtbwmpmtDYSAZE WILSON Facility:[facility]art: 29-97-9572Cjyaqrilv for other preprocedural examinationSKATERINA LARSONIntermountain Medical Centertart: 01-30-2023 End: 10-10-7370iunhkkwbsgVZUM AUGUSTINFacility:[facility] Hospitaltart: 01-30-2023 End: 72-67-1950Eeuzwpmvvowak examination doneXr Hosp Work Phone: [facility]otart: 01-30-2023 End: 43-92-5562Doixkxnyyw hospital visit by physicianXr [facility] Work Phone: [facility] Radiology GeneralComment on above:Pre-op evaluation [Z01.818]Start: 01-19-2023 End: 66-26-1761ejiefdiakhWZUSYN WILSONFacility:[facility] Hospitaltart: 01-19-2023 End: 37-51-3128Rhiqtpk encounter procedureSkaterina Larson APRN.CNP Work Phone: General SurgeryComment on above:Pre-op evaluation (Primary Dx); Class 3 severe obesity with serious comorbidity and body mass index (BMI) of 40.0 to 44.9 in adult,unspecified obesity type (HCC); Vapes nicotine containing substance; Marijuana smokerStart: 01-19-2023 End: 91-08-6267Dpxxzjpqvlssv examination Bharat Larson APRN.[employer] Work Phone: [facility] Work Phone: Start: 09-23-2022 End: 58-86-8161hmxdhwtsrqRBGJIOSTR BREAULTFacility:K8Ntyhm: 09-20-2022 End: 80-12-7401ghudslnftpFOUNUDOFH BREAULTFacility:D9Pvkej: 07-07-2022 End: 33-41-8384Gsihwpew [facility] Main [place] Work Phone: Start: 07-07-2022 End: 95-89-9170hovotgyrafJYC STAFFWood County Hospital Medical [facility] Work Phone: Start: 58-99-7687Illvmu outpatient visit 25 minutes Radhika EnriqueFPG Urgent Care ClydeStart: 07-04-2022 End: 26-89-0350Ldqbcnpcg department patient visitMiami Valley Hospital Ctr- Emergency Room Work Phone: Start: 06-17-2022 End: 16-67-0503xmxuccwtaeBywzfiphs [place] Other noLFS ([employer]) Other Start: 71-84-3749Fusadgbcg encounterStephanaide Niaf [facility] ClydeStart: 05-01-2022 End: 83-97-7632wtbkjuvkijJGRKQEAHQ NAIFFacility:W1Outaw: 03-24-2022 End: 89-31-6199kqkmiuwjnmMrsmduhqr Naif Other noLFS ([employer]) Other Start: 50-41-9788Ghinucgof encounterStephanaide Disla [facility] ClydeStart: 01-27-2022 End: 23-04-7354gnieockxhuIxfgjs Iva Other noLFS ([employer]) Other Start: 97-26-4156Wlxpzi outpatient visit 15 minutes Radhika JovelpiterFPG [facility] Care ClydeStart: 01-14-2022 End: 49-29-1240jatejdwvknZZMPYCKHH BREYAWFacility:J9Azgbt: 11-26-2021 End: 79-25-1791luhepbiswsJjxebdmnn Naif Other noLFS ([employer]) Other Start: 78-21-6091Oacdmq outpatient visit 15 minutes Maria R DislaFPG [facility] ClydeStart: 11-11-2021 End: 58-26-3480njxncsfbiuWtppxgneb Naif Other noLFS ([employer]) Other Start: 31-57-9842Emqqyv outpatient visit 25 minutes Maria R DislaFPG [facility] ClydeStart: 10-28-2021 End: 68-75-8395humshalfpnFJYCPESHI BREAULTFacility:V3Egckf: 10-14-2021 End: 14-38-7498xzmnjgzfmkAfzifqzmk Naif Other noLFS ([employer]) Other Start: 90-82-6878Fuseds outpatient visit 15 minutes Maria R DislaFPG [facility] ClydeStart: 08-18-2021 End: 41-77-8617tjvzqcgqziIuciaoeun Naif Other noLFS ([employer]) Other Start: 23-36-0241Uihbbqxaz encounterStephanie Naif [facility] ClydeStart: 06-21-2021 End: 72-59-3011foohdxxyutXjrrjj Iva Other noLFS ([employer]) Other Start: 41-54-1898Axkcfs outpatient visit 5 minutes Radhika EnriqueFPG [facility] ClydeStart: 05-28-2021 End: 42-36-3586rksifokokpKpggcfzof Naif Other noLFS ([employer]) Other Start: 80-92-3057Cemqinwev encounterStephanie Naif [facility] ClydeStart: 04-10-2021 End: 54-88-0055ythhpjwmtgZnhycmyrn Naif Other noLFS ([employer]) Other Start: 79-00-6528Bymaxusfk encounterStephanie Naif [facility] ClydeStart: 03-30-2021 End: 77-38-3690doonjbtskxWaankeoen Naif Other noLFS ([employer]) Other Start: 62-95-7399Dlkoda outpatient visit 15 minutes Maria Remily DislaFPG [facility] ClydeStart: 83-63-3647Osvauz outpatient visit 15 minutesStephanie NolaaultFPG Urgent Care ClydeStart: 85-51-9189Cgnlnj outpatient visit 15 minutesStephanie BreaultFPG [facility] [place] Procedures DateProcedureProcedure DetailPerforming ClinicianStart: 60-06-1574Pyfrz dip stick/tablet rgnt non-auto w/o micrscpAmy Camila ELMORE Work Phone: Start: 70-90-4346LXF UA (CLEAN/CATCH) SCALLOP DREDGER/MICRO IF IND.Rodrigo Thomas DO Work Phone: Start: 70-14-8956MCQ, SERUM, OPEN SPINA BIFIDACorey Thomas DO Work Phone: Start: 54-61-5130Xyedn dip stick/tablet rgnt non-auto w/o micrscpCorey Thomas DO Work Phone: Start: 52-52-7683Uzzeo dip stick/tablet rgnt non-auto w/o micrscpAmy Camila ELMORE Work Phone: Start: 13-73-3024QOPUKWVRJ VAGINITIS (HTRX)Ira ELMORE Work Phone: Start: 28-97-5189Feuxp dip stick/tablet rgnt non-auto w/o micrscpAmy Camila ELMORE Work Phone: Start: 01-82-4531JJF TESTKrjuanita Will NP Work Phone: Start: 39-00-9743Ptupg dip stick/tablet rgnt non-auto w/o micrscpCorey Thomas DO Work Phone: Start: 15-23-2510Wjecaaftw cultureRichard Visci DO Work Phone: start: 23-81-9595Moppl chlamydia trachomatis amplified probe tqRichard A Visci DO Work Phone: start: 46-43-8872Fgwzs dip stick/tablet rgnt non-auto w/o micrscpRichard A Visci DO Work Phone: start: 61-95-8638HBK,APTIMA HPV,AGE GDLNAmy Camila PA Work Phone: Start: 39-45-9721Ytxdn Strep (POC)Start: 21-05-3923Y- ray of right ankleStart: 80-79-4214G-ray of right footStart: 34-81-7044Bs abdominal real time w/image limitedAllie Larson APRN.CNP Work Phone: Start: 89-67-7782Lofwr iv surg pathology gross&microscopic examCatherine Ly DO Work Phone: Start: 00-98-1072Xmnigghbcmkopqegnaswlmwlql transoral diagnosticToms Faisal DELGADO Work Phone: Start: 58-31-6452Klu routine ecg w/least 12 lds i&r onlyAllie Larson APRN.CNP Work Phone: Start: 37-05-2460Sbtaxnkbmr exam chest 2 Codie Larson APRN.CNP Work Phone: Start: 57-51-6982Aebsx culture Plan of Treatment DateCare ActivityDetailAuthorStart: 81-60-6820Sbjcy microalbumin profile [facility]otart: 05-01-2025 End: 21-14-7647Cpxclye encounter axzlpsouu20/08/2025 11:30 AM EST Routine [facility] [address] [place] [address] Carmita Will, SHANK RANDER [address] [place] [address] [facility]BGYNStart: 04-03-2025 End: 19-73-7320VQL panel - Blood by Automated countCBC Lab Routine Diabetes mellitus screening Expected: 04/03/2025 (Approximate), Expires: 04/03/2026[facility] Work Phone: comment on above:Expected: 04/03/2025 (Approximate), Expires: 04/03/2026Start: 04-03-2025 End: 36-05-7580Jizqlijdxmu of glucose 1 hour after glucose challenge for glucose tolerance testGlucose tolerance, 1 hour Lab Routine Diabetes mellitus screening Expected: 04/03/2025 (Approximate), Expires: 04/03/2026[facility] HealthcareComment on above:Expected: 04/03/2025 (Approximate), Expires: 04/03/2026Start: 04-03-2025 End: 01-87-7176Xpuyost encounter dkobhoajt09/10/2025 11:30 AM EST Routine [facility] [address] [place] [phone] Ira Jensen PA [address] [place] [address] [facility]BGYNStart: 04-03-2025 End: 22-90-9703Hizqsoexwhot / ancillary services rywvcflsdf25/10/2025 11:00 AM EST Ancillary Procedure NOMGypsy LUNSFORDN [address] [place] [phone] NOHackens[facility] Centerue OBGYNStart: 03-06-2025 End: 89-20-1699Hstgv fetoprotein, maternalAlpha fetoprotein, maternal Lab Routine Second trimester ([facility]) Expected: 03/06/2025 (Approximate), Expires: 04/06/2025[facility] HealthcareComment on above:Expected: 03/06/2025 (Approximate), Expires: 04/06/2025Start: 03-06-2025 End: 05-32-2288QO for pregnancyUS OB 14+ weeks anatomy scan Imaging Routine Screening, , for anatomic survey ([facility]) Expected: 03/06/2025, Expires: 06/06/2025[facility] Work Phone: comment on above:Expected: 03/06/2025, Expires: 06/06/2025Start: 03-06-2025 End: 69-90-0737Lofzclk encounter procedureNOMS Crystal OBGYNComment on above: ArrivedStart: 02-20-2025 End: 36-65-1728Srhbufg encounter mjjcvnzit74/29/2025 11:30 AM EDT Routine [facility] [address] [place] [phone] Carmita Will, SHANK RANDER [address] [place] [phone] [facility]BGYNStart: 02-09-2025 End: 96-40-0585Inomqdl encounter kqfrnjegc96/18/2025 2:40 PM EDT Routine [facility] [address] [place], [id number] Ira Jensen PA [address] [place], [place] [phone] ArrivedNOMS [place] OBGYNComment on above:ArrivedStart: 30-23-1764NSQWP-19 Vaccine ( season)COVID-19 Vaccine ( season)[facility] HealthcareStart: 01-56-9118Rozjmavjh vaccinationNOMS HealthcareStart: 01-19-2025 End: 74-97-9877xiykotucdm38/28/2025 8:50 AM EDT Initial [facility] [address] [phone] Rodrigo Guzman DO [address] [place], [place] [phone] ArrivedNOMS [place]jas OBGYNComment on above:ArrivedStart: 01-16-2025 End: 90-57-1662Yyhqktw encounter elktjjkns72/ 11:45 AM EDT Routine [facility] [place] [facility] [address] [place] [address] Wesley Browning, DO [address] [place] [address] [facility] [place] OBGYNStart: 12-19-2024 End: 01-48-1270wovwiuwjne60/28/2025 9:15 AM EDT Initial [facility] [address] [place] [phone] Wesley Browning, DO [address] [place] [address] [facility] OBStart: 12-02-2024 End: 76-62-9687Cxseglgp identified in Urine by CultureUrine culture Microbiology Routine Encounter for supervision of normal first in first trimester ([facility]) Expected: 12/02/2024, Expires: 12/02/2025[facility] HealthcareComment on above:Expected: 12/02/2024, Expires: 12/02/2025Start: 12-02-2024 End: 31-19-7506MROUMP CARRIER SCREEN;14 GENESBEACON CARRIER SCREEN;14 GENES Lab Routine Screening for genetic disease carrier status Expected: 12/02/2024 (Approximate), Expires: 12/02/2025[facility] HealthcareComment on above:Expected: 12/02/2024 (Approximate), Expires: 12/02/2025Start: 12-02-2024 End: 97-57-2929Eyats type and Indirect antibody screen panel - BloodType and screen Lab Routine Encounter for supervision of normal first in first trimester ([facility]) Expected: 12/02/2024, Expires: 12/02/2025[facility] Comment on above:Expected: 12/02/2024, Expires: 12/02/2025Start: 12-02-2024 End: 46-63-5551QLO W Auto Differential panel - BloodCBC and differential Lab Routine Encounter for supervision of normal first in first trimester ([facility]) Expected: 12/02/2024, Expires: 12/02/2025[facility] HealthcareComment on above:Expected: 12/02/2024, Expires: 12/02/2025Start: 12-02-2024 End: 91-13-0561URFH SCREEN 17 W/CONF, URDRUG SCREEN 17 W/CONF, UR Lab Routine Encounter for drug screening Expected: 12/02/2024, Expires: 12/02/2025[facility] HealthcareComment on above:Expected: 12/02/2024, Expires: 12/02/2025Start: 12-02-2024 End: 55-40-6746Jamtmkaca B virus surface Ag [Presence] in Serum or Plasma by ImmunoassayHepatitis B surface antigen Lab Routine Encounter for supervision of normal first in first trimester ([facility]) Expected: 12/02/2024, Expires: 12/02/2025[facility] HealthcareComment on above:Expected: 12/02/2024, Expires: 12/02/2025Start: 12-02-2024 End: 33-19-7998Wcuockjlb C virus Ab [Presence] in Serum or Plasma by Immunoassay Hepatitis C antibody Lab Routine Encounter for supervision of normal first in first trimester ([facility]) Expected: 12/02/2024, Expires: 12/02/2025 [facility] HealthcareComment on above:Expected: 12/02/2024, Expires: 12/02/2025Start: 12-02-2024 End: 99-99-0389PWM-2 antigen assayHIV-2 antigen Lab Routine Encounter for supervision of normal first in first trimester ([facility]) Expected: 12/02/2024, Expires: 12/02/2025[facility] HealthcareComment on above:Expected: 12/02/2024, Expires: 12/02/2025Start: 12-02-2024 End: 24-03-3357ZdqhgtwN37 PLUS Core+IRSCddfuvbU06 PLUS Core+SCA Lab Routine Encounter for screening for chromosomal anomalies ([facility]) Expected: 12/02/2024 (Approximate), Expires: 12/02/2025[facility] HealthcareComment on above: Expected: 12/02/2024 (Approximate), Expires: 12/02/2025Start: 12-02-2024 End: 61-18-8059Psj (dx) w/refl titer and confirmatory testingRpr (dx) w/refl titer and confirmatory testing Lab Routine Encounter for supervision of normal first in first trimester ([facility]) Expected: 12/02/2024, Expires: 12/02/2025[facility] HealthcareComment on above:Expected: 12/02/2024, Expires: 12/02/2025Start: 12-02-2024 End: 47-37-0761Gdzojhc antibody, IgGRubella antibody, IgG Lab Routine Encounter for supervision of normal first in first trimester ([facility]) Expected: 12/02/2024, Expires: 12/02/2025[facility] HealthcareComment on above:Expected: 12/02/2024, Expires: 12/02/2025Start: 12-02-2024 End: 84-10-8396Gkuzedqnxm complete panel - UrineUrinalysis with microscopic Lab Routine Encounter for supervision of normal first in first trimester ([facility]) Expected: 12/02/2024, Expires: 12/02/2025[facility] Healthcare Work Phone: comment on above:Expected: 12/02/2024, Expires: 12/02/2025Start: 11-07-2024 End: 15-75-9650Cgslmce encounter dfuwblyfp90/16/2025 11:00 AM EDT Office Visit [facility] [address] [place] [phone] Ira Jensen PA [address] [place] [address] [facility] OBComment on above:ArrivedStart: 02-02-2024 [facility] Columbustart: 59-23-9949Keyxd-19 Vaccine ( season)Covid-19 Vaccine ( season)[facility] 01-24-2024 Influenza vaccinationInfluenza Vaccine (#1)[facility]: 01-23-2023 Influenza vaccinationRegency Hospital Toledotart: 01-19-2023 End: 512492-iouujhwpsxtglq D3 [Mass/volume] in Serum or PlasmaVITAMIN D 25 HYDROXY Lab Routine Pre-op evaluation Class 3 severe obesity with serious comorbidity and body mass index (BMI) of 40.0 to 44.9 in adult, unspecified obesity type (HCC) Expected: 01/19/2023, Expires: 03/21/2023[facility] Work Phone: Comment on above:Expected: 01/19/2023, Expires: 03/21/2023Start: 01-19-2023 End: 39-51-5531RTX W Auto Differential panel - BloodCBC + DIFF Lab Routine Pre- op evaluation Class 3 severe obesity with serious comorbidity and body mass index (BMI) of 40.0 to 44.9 in adult, unspecified obesity type (HCC) Expected: 01/19/2023, Expires: 03/21/2023[facility] Work Phone: Comment on above:Expected: 01/19/2023, Expires: 03/21/2023Start: 01-19-2023 End: 74-95-0404Uubhtgkvl (Vitamin B12) [Mass/volume] in Serum or PlasmaVITAMIN B12 BLOOD Lab Routine Pre-op evaluation Class 3 severe obesity with serious comorbidity andbody mass index (BMI) of 40.0 to 44.9 in adult, unspecified obesity type (HCC) Expected: 01/19/2023, Expires: 03/21/2023[facility] Work Phone: Comment on above:Expected: 01/19/2023, Expires: 03/21/2023Start: 01-19-2023 End: 19-50-6490Kyfuqoehscfzs metabolic 2000 panel - Serum or PlasmaCOMP METABOLIC PANEL Lab Routine Pre-op evaluation Class 3 severe obesity with serious comorbidity and body mass index (BMI) of 40.0 to 44.9 in adult, unspecified obesity type (HCC) Expected: 01/19/2023, Expires: 03/21/2023 [facility] Work Phone: Comment on above:Expected: 01/19/2023, Expires: 03/21/2023Start: 01-19-2023 End: 73-68-6165Ubzfqbhd [Mass/volume] in Serum or PlasmaFERRITIN BLD Lab Routine Pre-op evaluation Class 3 severe obesity with serious comorbidity and bodymass index (BMI) of 40.0 to 44.9 in adult, unspecified obesity type (HCC) Expected: 01/19/2023, Expires: 03/21/2023[facility] Work Phone: Comment on above:Expected: 01/19/2023, Expires: 03/21/2023Start: 01-19-2023 End: 74-33-2783Ftpmnz [Mass/volume] in Serum or PlasmaFOLATE SERUM Lab Routine Pre-op evaluation Class 3 severe obesity with serious comorbidity and bodymass index (BMI) of 40.0 to 44.9 in adult, unspecified obesity type (HCC) Expected: 01/19/2023, Expires: 03/21/2023[facility] Work Phone: Comment on above:Expected: 01/19/2023, Expires: 03/21/2023Start: 01-19-2023 End: 04-70-5487Oagiosiynv A1c in BloodHGB A1C Lab Routine Pre-op evaluation Class 3 severe obesity with serious comorbidity and body massindex (BMI) of 40.0 to 44.9 in adult, unspecified obesity type (HCC) Expected: 01/19/2023, Expires: 03/21/2023[facility] Work Phone: Comment on above:Expected: 01/19/2023, Expires: 03/21/2023Start: 01-19-2023 End: 03-79-0817Vclu and Iron binding capacity panel - Serum or PlasmaIRON + TIBC Lab Routine Pre-op evaluation Class 3 severe obesity with serious comorbidity and body mass index (BMI) of 40.0 to 44.9 in adult, unspecified obesity type (HCC) Expected: 01/19/2023, Expires: 03/21/2023[facility] Work Phone: Comment on above:Expected: 01/19/2023, Expires: 03/21/2023Start: 01-19-2023 End: 75-10-9241Vkzrl 1996 panel - Serum or PlasmaLIPID PANEL BASIC Lab Routine Pre-op evaluation Class 3 severe obesity with serious comorbidity andbody mass index (BMI) of 40.0 to 44.9 in adult, unspecified obesity type (HCC) Expected: 01/19/2023, Expires: 03/21/2023[facility] Work Phone: Comment on above:Expected: 01/19/2023, Expires: 03/21/2023Start: 01-19-2023 End: 34-87-0974Uqrpxxcyzru peptide.B prohormone N-Terminal [Mass/volume] in Serum or PlasmaNT PRO BNP Lab Routine Pre-op evaluation Class 3 severe obesity with serious comorbidity and body mass index (BMI) of 40.0 to 44.9 in adult, unspecified obesity type (HCC) Expected: 01/19/2023, Expires: 03/21/2023 [facility] Work Phone: Comment on above:Expected: 01/19/2023, Expires: 03/21/2023Start: 01-19-2023 End: 30-60-9769GBZAIVJN & METAB, URNICOTINE & METAB, UR Lab Routine Pre-op evaluation Class 3 severe obesity with serious comorbidity and body mass index (BMI) of 40.0 to 44.9 in adult, unspecified obesity type (HCC) Expected: 12/24, Expires: 03/21/2023[facility] Work Phone: Comment on above:Expected: 01/19/2023, Expires: 03/21/2023Start: 01-19-2023 End: 45-79-8602Frthoeteirw [Units/volume] in Serum or PlasmaTSH BLD Lab Routine Pre-op evaluation Class 3 severe obesity with serious comorbidity and body mass index (BMI) of 40.0 to 44.9 in adult, unspecified obesity type (HCC) Expected: 01/19/2023, Expires:03/21/2023[facility] Work Phone: Comment on above:Expected: 01/19/2023, Expires: 03/21/2023Start: 01-19-2023 End: 39-27-9275XPP SCREEN ROUT URTOX SCREEN ROUT UR Lab Routine Pre-op evaluation Class 3 severe obesity with serious comorbidity and body mass index (BMI) of 40.0 to 44.9 in adult, unspecified obesity type (HCC) Expected: 01/19/2023, Expires: 03/21/2023[facility] Work Phone: Comment on above:Expected: 01/19/2023, Expires: 03/21/2023Start: 01-19-2023 End: 06-07-3827YLORRNV B1 (THIAMINE), WHOLE BLOODVITAMIN B1 (THIAMINE), WHOLE BLOOD Lab Routine Pre-op evaluation Class 3 severe obesity with serious comorbidity and body mass index (BMI) of 40.0 to 44.9 in adult, unspecified obesity type (HCC) Expected: 01/19/2023, Expires: 03/21/2023[facility] Work Phone: Comment on above:Expected: 01/19/2023, Expires: 03/21/2023Start: 86-48-2969Vssxxlrt identified in Urine by CultureSelect Medical Specialty Hospital - Columbustart: 29-62-0358TLJ TESTINGPAP TESTINGLouis Stokes [facility] Medical Center Start: 52-24-8298Pyussftoa for malignant neoplasm of cervixCervical Cancer ScreeningRegency Hospital Toledotart: 00-67-5825Noabxdiswjjv Vaccine: Pediatrics (0 to 5 Years) and At-Risk Patients (6 to 64 Years) (1 of 2 - PCV)Pneumococcal Vaccine: Pediatrics (0 to 5 Years) and At-Risk Patients (6 to 64 Years) (1 of 2 - PCV)[facility] HealthcareStart: 48-98-0123WURFDC PCP TEAM CHRONIC DISEASE VISIT ANNUAL PCP TEAM CHRONIC DISEASE VISITRegency Hospital Toledotart: 73-35-4131MAYTVIWLY SCREENING (18-24)CHLAMYDIA SCREENING (18-24)[facility]: 99-56-8710NH (GONORRHEA) SCREENING (18-24)GC (GONORRHEA) SCREENING (18-24)[facility] Start: 84-60-0216DDZLSQRAV C SCREENINGHEPATITIS C SCREENINGLouis [facility] Start: 37-62-4189Fvpxcrjcp C screeningHepatitis C ScreeningLouis [facility] Start: 23-26-1417DLQ SCREENINGHIV SCREENINGRegency Hospital Toledotart: 07-17-9272MSS screeningHIV ScreeningRegency Hospital [facility]edotart: 80-03-1823Vkqmxigfs for Chlamydia trachomatisChlamydia Screening (18-24)[facility]: 2019 SPIROMETRYSPIROMETRYRegency Hospital Toledotart: 48-69-1268Sblpbfsexuugd B Vaccine: Consider Based On Risk (1 of 2 - Patient Seeks Protection)Meningococcal B Vaccine: Consider Based On Risk (1 of 2 - Patient Seeks Protection)[facility]: 85-93-9842SURDWLVBXDPGH B: Consider based on risk (1 of 2 - Patient Seeks Protection)MENINGOCOCCAL B: Consider based on risk (1 of 2 - Patient Seeks Protection)[facility]: 80-02-1041SACK TO ADULT TRANSITION ANNUAL ASSESSMENTPEDS TO ADULT TRANSITION ANNUAL ASSESSMENTLouis [facility] Start: 82-11-1348KVOW TO ADULT TRANSITION INITIAL DISCUSSIONPEDS TO ADULT TRANSITION INITIAL DISCUSSIONRegency Hospital Toledotart: 07-79-8560WDZZRFJXDPSQ (1 - PCV)PNEUMOCOCCAL (1 - PCV)[facility]: 44-15-6984Wgdaumhmsdnd vaccinationPneumococcal Vaccine (1 - PCV)[facility]: 82-18-0694GEIFH- 19 VACCINE (#1)COVID-19 VACCINE (#1)[facility] CenterAtopobium vaginae DNA [Presence] in Vaginal fluid by HANNY with probe detectionMedina HospitalBacterial vaginosis associated bacterium 2 DNA [Presence] in Vaginal fluid by HANNY with probe detectionMedina Hospital CHLAMYDIA TRACHOMATIS (GENITO/STI)CHLAMYDIA TRACHOMATIS (GENITO/STI) Lab Routine Vaginal discharge Ordered: 02/07/2025[facility] HealthcareComment on above:Ordered: 5Cytology Cervical or vaginal smear or scraping studyPap Smear Pathology and Cytology Routine Well woman exam with routine gynecological exam Ordered: 11/07/2024[facility] Work Phone: comment on above:Ordered: 11/07/2024 End: 72-69-8552ART COMPLETEECG COMPLETE ECG Routine Pre-op evaluation Class 3 severe obesity with serious comorbidity and bodymass index (BMI) of 40.0 to 44.9 in adult, unspecified obesity type (HCC) 1 Occurrences starting 01/19/[address] [place] [address] Work Phone: Comment on above:1 Occurrences starting 01/19/2023 until 01/20/2024ECG COMPLETEECG COMPLETE ECG Routine Pre-op evaluation Class 3 severe obesity with serious comorbidity and bodymass index (BMI) of 40.0 to 44.9 in adult, unspecified obesity type (HCC) 02/11/2023 8:29 AM [facility] Work Phone: Hemoglobin A1c/Hemoglobin.total in BloodHemoglobin A1c Lab Routine First trimester ([facility]) 12 weeks gestation of ([facility]) Ordered: 01/19/2025[employer] Work Phone: comment on above:Ordered: 01/19/2025 End: 85-06-5271UEOG SLEEP APNEA TEST (HSAT)HOME SLEEP APNEA TEST (HSAT) Procedures Routine Pre-op evaluation Class 3 severe obesity with serious comorbidity and body mass index (BMI) of 40.0 to 44.9 in adult, unspecified obesity type (HCC) 1 Occurrences starting 01/19/[address] [place] [address] Work Phone: Comment on above:1 Occurrences starting 01/19/2023 until 01/19/2024IGP,rfx Apt HPV ASCU,16/18,45IGP,rfx Apt HPV ASCU,16/18,45 Lab Routine 13 weeks gestation of ([facility]) Screening for malignant neoplasm of cervix Ordered: 12/19/2024[facility] Work Phone: comment on above:Ordered: 12/19/2024Megasphaera sp type 1 DNA [Presence] in Vaginal fluid by HANNY with probe detectionMedina HospitalNeisseria gonorrhoeae DNA [Presence] in Unspecified specimen by HANNY with probe detectionNeisseria gonorrhea DNA probe, direct Lab Routine Vaginal discharge Ordered: 02/07/2025[facility] HealthcareComment on above: Ordered: 02/07/2025Patient EducationSinusitis in adultsMiami Valley Hospital Ctr Work Phone: Patient referralMiami Valley Hospital Ctr Work Phone: End: 75-42-1862Vxvhgptlqd exam chest 2 viewsXR CHEST 2V FRONTAL/LAT Radiology Routine Pre-op evaluation Class 3 severe obesity with serious comorbidity and body mass index (BMI) of 40.0 to 44.9 in adult, unspecified obesity type (HCC) 1 Occurrences starting 01/19/[address] [place] [address] Work Phone: Comment on above:1 Occurrences starting 01/19/2023 until 02/18/2024SURESWAB(R) ADVANCED VAGINITIS PLUS, TMASURESWAB(R) ADVANCED VAGINITIS PLUS, TMA Pathology and Cytology Routine Vaginal discharge Ordered: 0 02/07/2025[facility] Work Phone: comment on above:Ordered: 02/07/2025 End: 79-83-1094ZR ABD RIGHT UPPER QUADRANTUS ABD RIGHT UPPER QUADRANT Radiology Routine Pre-op evaluation Class 3 severe obesity with seriouscomorbidity and body mass index (BMI) of 40.0 to 44.9 in adult, unspecified obesity type (HCC) 1 Occurrences starting 01/19/[address] [place] [address] Work Phone: Comment on above:1 Occurrences starting 01/19/[address] [place] [address] Immunizations Immunization DateImmunizationNotesCare SpeoqhkaDurmegxb74-39-8899jalsqzi toxoid, reduced diphtheria toxoid, and acellular pertussis vaccine, adsorbedStepemily Disla Other [facility] Work Phone: [phone], injectable, quadrivalent, contains preservativeSkaterina Larson APRN.CNP Work Phone: [facility] Work Phone: [phone] virus vaccine, unspecified formulationTransylvania Regional Hospital10-21-2019influenza, injectable, quadrivalent, contains preservativeStavaresaide VacaNaif Other [facility] Work Phone: [phone], injectable, quadrivalent, preservative [facility]04-22-2019meningococcal oligosaccharide (groups A, C, Y and W-135) diphtheria toxoid conjugate vaccine (MCV4O)Allie Larson 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.[facility] Work Phone: [phone] Work Phone: [phone], seasonal, injectableAllie Larson 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.[facility] Work Phone: [phone] Work Phone: [phone] A vaccine, pediatric/adolescent dosage, 2 dose scheduleSkaterina Larson 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.[facility] Work Phone: [facility] Work Phone: [phone] polysaccharide (groups A, C, Y and W-135) diphtheria toxoid conjugate vaccine (MCV4P)Allie Larson 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.[facility] Work Phone: [facility] Work Phone: [phone] toxoid, reduced diphtheria toxoid, and acellular pertussis vaccine, adsorbedAllie Larson 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.[facility] Work Phone: [facility] Work Phone: [phone] Papillomavirus 9-valent vaccineSkaterina Larson 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.[facility] Work Phone: [facility] Work Phone: [phone], injectable, quadrivalent, preservative freeAllie Larson 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.[facility] Work Phone: [facility] Work Phone: [phone] Papillomavirus 9-valent vaccineSkaterina Larson 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.[facility] Work Phone: [phone] Work Phone: [phone] Papillomavirus 9-valent vaccineSkettering health hamiltonbelinda Larson 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.[facility] Work Phone: [phone] Work Phone: [phone] A vaccine, pediatric/adolescent dosage, 2 dose scheduleSkettering health hamiltonbelinda Larson 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.[facility] Work Phone: [phone] Work Phone: [phone] virus vaccineSkettering health hamiltonbelinda Larson 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.[facility] Work Phone: [phone] Work Phone: [phone], seasonal, injectableShmani Larson 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.[facility] Work Phone: [phone] Work Phone: [phone], seasonal, injectableOss Healthbelinda Larson 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.[facility] Work Phone: [phone] Work Phone: [phone], tetanus toxoids and acellular pertussis vaccine, 5 pertussis antigensmani Larson 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.[facility] Work Phone: [phone] Work Phone: [phone], mumps and rubella virus vaccine Allie Larson 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.[facility] Work Phone: [phone] Work Phone: [phone] vaccine, inactivatedAllie Larson 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.[facility] Work Phone: [phone] Work Phone: [phone]ikrkz, tetanus toxoids and acellular pertussis vaccineSkettering health hamiltonbelinda Larson 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.[facility] Work Phone: [phone] Work Phone: [phone]uiysyf influenzae type b vaccine, PRP-T conjugateSkettering health hamiltonbelinda Larson 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.[facility] Work Phone: [phone] Work Phone: [phone]nz, mumps and rubella virus vaccine Alliebelinda Lasron 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.[facility] Work Phone: [phone] Work Phone: [phone]avxbzjb virus vaccineSlisabeilnda Larson 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.[facility] Work Phone: [phone] Work Phone: [phone]zfgqd, tetanus toxoids and acellular pertussis vaccine, unspecified formulationShelbelinda Larson 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.[facility] Work Phone: [phone] Work Phone: [phone]xcjruucyj influenzae type b conjugate and Hepatitis B vaccineSkettering health hamiltonbelinda Larson 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.[facility] Work Phone: [phone] Work Phone: [phone]chjdrjxyl vaccine, inactivatedShmani Larson 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.[facility] Work Phone: [phone] Work Phone: [phone]jqtnh, tetanus toxoids and acellular pertussis vaccine, unspecified formulationSkettering health hamiltonbelinda Larson 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.[facility] Work Phone: [phone] Work Phone: [phone]dkfoqsraqj influenzae type b conjugate and Hepatitis B vaccineSkettering health hamiltonbelinda Larson 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.[facility] Work Phone: [phone] Work Phone: [phone]fovykmopoyp conjugate vaccine, 7 valent Alliebelinda Larson 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.[facility] Work Phone: [phone] Work Phone: [phone]ahfrj vaccine, inactivatedShkennbelinda Larson 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.[facility] Work Phone: [phone] Work Phone: [phone]pbfrwkdnr, tetanus toxoids and acellular pertussis vaccine, unspecified formulationSkettering health hamiltonbelinda Larson 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.[facility] Work Phone: [phone] Work Phone: [phone]inoanpopgp influenzae type b conjugate and Hepatitis B vaccineSkaterina Larson 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.[employer] Work Phone: [facility] Work Phone: [phone]sdakzpt conjugate vaccine, 7 valent Allie Larson 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.[employer] Work Phone: [phone] Work Phone: [phone]aujly vaccine, inactivatedShmani Larson 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.[employer] Work Phone: [phone] Work Phone: Payers DatePayer CategoryPayerPolicy [id number]-smn [id number] 2023Medicaid [id number] 2.16.840.1.156916.3.57[id number] 2.16.840.1.325886.3.57[id number] 2.16.840.1.950286.3.57[id number] 2.16.840.1.759633.3.57[id number] 2.16.840.1.081683.3.57[id number] 2.16.840.1.175848.3.57[id number] 2.16.840.1.637799.3.57[id number] 2.16.840.1.919552.3.57[id number] 2.16.840.1.945622.3.57[id number] 2.0.1.300935.3.57[id number] 2..840.1.255823.3.57[id number] 2.0.1.159492.3.57[id number] 2.0.1.858485.3.57[id number] 2.0.1.367788.3.57[id number] 2.0.1.803110.3.57[id number] 2..1.469258.3.57[id number] 2..1.131930.3.57[id number] 2..1.103836.3.579.2.1259 [id number] 1959Unknown [id number] 2..[id number] 2..1.097144. [id number] 2..[id number] 2..1.126106.3.579.2.531 Social History DateTypeDetailFacilityUnknown if ever smokedNort Rock-[employer] Other Start: 01-19-2023 End: 39-41-0739Qhb Assigned At [facility] Work Phone: Start: 07-04-2022 End: 32-75-8136Dytoepj smoking status NHISSmoker (finding)[facility] Columbustart: 82-10-7757Fir Assigned At BirthFeMercy Health St. Anne Hospitaltart: 01-19-2023 End: 24-58-6945Aunnnui smoking status NHISNever smoked tobaccoLouis Stokes Cleveland Va Medical Center Work Phone: Start: 01-19-2023 End: 61-23-9225Pmqsplx use and exposureSmokeless tobacco non-userLouis Stokes [facility] Medical Center Work Phone: Start: 01-19-2023 End: 39-42-2044Syagbde intakeCurrent drinker of alcohol (finding)[facility]: 01-19-2023 End: 25-13-0223Ykwlazv of Social functionSaint Luke's East Hospital Work Phone: Start: 91-83-4352Pfwphnnq Score (1-100), lower number is lower qsmz19DU[address] [place], [place] [address]Start: 75-53-9696Dsfxlpv CommentvapingRegency Hospital Toledotart: 18-83-8812Lpyugjd Commentonce a monthRegency Hospital Toledotart: 39-02-1612Tesszh identityIdentifies as female gender (finding)[facility] Start: 60-01-6372Tbeblu orientationBisexual (finding)[facility]: 43-10-7412Esaomed Commentvaping- Quit 02/02/23[facility] CenterToconnecticut hospice smoking status NHISTobacco smoking consumption unknownDEL[facility] HealthcareStart: 2000 Sex assigned at birthNot on fileDELTA COMMUNITY MEDICAL CENTER HealthcareStart: 12-02-2024 End: 29-55-5715Yslqhofnm beverage intakeEx-drinker (finding)[facility] Start: 42-93-3003Smdvvvw Commentcaffeine intake: noneDELTA COMMUNITY [facility]ENTER HealthcareStart: 62-26-2657JsruaaorvLfpfhjzykSelect Medical Specialty Hospital - ColumbusexFemale (finding)[facility] Goals DatePatient GoalDesired Activity/StatePersonal health goal Functional Status QqnkWlobchyvivJiflrzRfohoxtk16-83-3520Gorjpvv Health Questionnaire 2 item (PHQ- 2) [Reported][facility] Clinical Notes 02-26-2021 to 04-03-2025 Note Date & TengGguxOrqflxxd03-24-2767 History of Present illness Narrative* RAMÍREZ Castle - 04/03/2025 11:30 AM EST Reason for Appointment: Patient ID: Saroj Membreno [...] Exam Constitutional: Appearance: Normal appearance. She is well-developed and normal weight. HENT: Head: Normocephalic. Cardiovascular: Rate and Rhythm: Normal rate and regular rhythm. Pulses: Normal pulses. Pulmonary: Effort: Pulmonary effort [...] Judgment normal. Vitals and nursing note reviewed. Exam conducted with a transition social worker present. Vitals: Estimated body mass index is 53.21 kg/m as calculated from the following: Height as of 12/08/22: 5' 3 . Weight as of this encounter: 300 lb 6.4 oz. BP: 100/70 Patient's last menstrual period was 09/18/2024. Assessment/Plan ICD-10-CM 1. 23 weeks gestation of ([facility]) Z3A.23 POCT urinalysis dipstick manually resulted 2. Marginal placenta, antepartum ([facility]) O44.20 POCT urinalysis dipstick manually resulted 3. Second trimester ([facility]) Z34.92 POCT urinalysis dipstick manually resulted 4. Diabetes mellitus screening Z13.1 POCT urinalysis dipstick manually resulted CBC Glucose tolerance, 1 hour CBC Glucose tolerance, 1 hour Return OB: Patient presents today for a routine obstetrics appointment. Patient is currently 23w0d . Patient states she is doing well but has complaints of being tired due to current . Patient has verbalizes frequent movement. Patient was given orders for CBC and 1 hour Glucose test to be completed. Patient asked about belly band she was given names of 1naturalway and Aeroflow to lookfor these. Patient does have complaints of discomfort and being uncomfortable. Patient will be referred tto MFM for an incomplete Anatomy waiting for final result. Orders Placed This Encounter Procedures CBC Glucose tolerance, 1 hour POCT urinalysis dipstick manually resulted Follow Up: Patient is to return to office in 2 week for routine OB appointment. Documented by Katie Nguyen LPN on behalf of: RAMÍREZ Castle documented in this encounterSaint Luke's East HospitalDphvnogkvs97-07-7975 Note ADDENDUM #1 Due to technical factors [...] Delivery: 07/31/25 Gestational Age as of 03/06/2025: 48o3g20-04-4273 History of Present illness Narrative* Anna He, DIFFUSER OPERATOR - 03/06/2025 10:00 AM EDT Reason for [...] nursing note reviewed. Exam conducted with a transition social worker present. Vitals: Estimated body mass index is 52.66 kg/m as calculated from the following: Height as of 12/08/22: 5' 3 . Weight as of this encounter: 297 lb 4 oz. BP: 110/70 Patient's last menstrual period was 09/18/2024. ASSESSMENT & PLAN ICD-10-CM 1. Screening, , for anatomic survey ([facility]) Z36.89 US OB 14+ weeks anatomy scan 2. Second trimester ([facility]) Z34.92 Alpha fetoprotein, maternal Alpha fetoprotein, maternal 3. 19 weeks gestation of ([facility]) Z3A.19 POCT urinalysis dipstick manually resulted [...] of: Rodrigo Guzman DO documented in this encounterSaint Luke's East HospitalMnmjnlnokw68-68-3165 History of Present illness Narrative* RAMÍREZ Castle [...] PLAN ICD-10-CM 1. 15 weeks gestation of ([facility]) Z3A.15 POCT urinalysis dipstick manually resulted 2. Second trimester ([facility]) Z34.92 POCT urinalysis dipstick manually resulted 3. [...] behalf of: RAMÍREZ Castle documented in this encounterSaint Luke's East HospitalZayoeoefqg08-28-6724 History of Present illness Narrative* RAMÍREZ Castle [...] Date ADHD (attention deficit hyperactivity disorder) Asthma ([facility]) Depression with anxiety HSV (herpes simplex virus) [...] gonorrhea DNA probe, direct 2. Second trimester ([facility]) Z34.92 3. 15 weeks gestation of ([facility]) Z3A.15 4. Nausea and vomiting in ([facility]) O21.9 magnesium oxide (Mag-Ox) 400 MG tablet [...] behalf of: RAMÍREZ Castle documented in this encounterSaint Luke's East HospitalHgfyzbqktp32-41-7395 History of Present illness Narrative* Anna He, DIFFUSER OPERATOR - 01/19/2025 8:50 AM EDT Reason for Appointment: Patient ID: Saroj eMmbreno is a 25 y.o. female who presents [...] nursing note reviewed. Exam conducted with a transition social worker present. Vitals: Estimated body mass index is 52.97 kg/m as calculated from the following: Height as of 12/08/22: 5' 3 . Weight as of this encounter: 299 lb. BP: 122/76 Patient's last menstrual period was 09/18/2024. ASSESSMENT & PLAN ICD-10-CM 1. First trimester ([facility]) Z34.91 POCT urinalysis dipstick manually resulted 2. 12 weeks gestation of ([facility]) Z3A.12 New OB: Patient presents for [...] or undercooked meat, and [facility]. Patient has been consulted regarding any [...] of: Rodrigo Guzman DO documented in this encounterSaint Luke's East HospitalFeyzdfarhj55-57-6753 History of Present illness Narrative* Wesley Browning [...] Sig Dispense Refill Vit-Fe Fumarate-FA ( Vitamins) -0.8 MG tablet Take 1 tablet by mouth Daily 30 tablet 11 No current facility-administered medications for this visit. ICD-10-CM 1. Encounter for supervision of normal first in first trimester ([facility]) Z34.01 2. 13 weeks gestation of ([facility]) Z3A.13 POCT URINALYSIS [address]/NG IGP,rfx Apt HPV ASCU,16/18,45 3. Screen for sexually transmitted diseases Z11.[address]/NG 4. Herpes simplex type 2 infection complicating , first trimester ([facility]) O98.511 B00.9 5. Severe obesity due to excess calories affecting in first trimester ([facility]) O99.211 E66.01 6. Screening for malignant neoplasm of cervix Z12.4 IGP,rfx Apt HPV ASCU,16/18,45 7. Nausea and vomiting during ([facility]) O21.9 She is here for routine visit. She complains of significant nausea. We discussed Unisom and vitamin B6 along with Silviano. We talked about how important is that [...] back in 4 weeks. documented in this encounterSaint Luke's East HospitalZcstsjynqm85-29-0856 History of Present illness Narrative* Darlyn Gonzalez RN - 12/02/2024 11:00 AM EDT Name: Saroj Membreno Date/Time of Service:12/02/2024 12:05 PM :2000 Age: 24 y.o. Chief Complaint Chief Complaint Patient presents with Initial Visit Nurse Visit Sarjo Membreno is a 24 y.o. at 10w5d [...] of estimated date of delivery No Thalassemia (Hebrew, Kazakh, Mediterranean, or background): MCV less than 80 No Neural tube defect (Meningomyelocele, Spina bifida, or Anencephaly) No Down syndrome No Yusuf-Sachs (Ashkenazi Congregation, Cajun, Nepalese Cook Islander) No Leoncio disease (Ashkenazi Congregation) No Familial dysautonomia (Ashkenazi Congregation) No Sickle cell disease or trait () No Hemophilia or other blood disorders No Muscular dystrophy No Cystic fibrosis No Antonio's chorea No Other inherited genetic or chromosomal [...] RN 12/02/2024 12:05 PM documented in this encounterSaint Luke's East HospitalLywgcmkaoi89-93-4918 Evaluation note* Diagnosis Onset Date Resolution Status Admit Date Acute bacterial sinusitis noneactiveJune 2024 10:32amShinglesacuteJune 2024 10:05am [facility] Work Phone: [phone] 357-153206-16-2025 History of Present illness Narrative* RAMÍREZ Castle [...] nursing note reviewed. Exam conducted with a transition social worker present. Vitals: Estimated body mass index is [...] behalf of: RAMÍREZ Castle documented in this encounterSaint Luke's East [id number] NoteHNO ID: [id number] Author: Netta Dillard, PhD Service: ? Author Type: Psychologist Type: Progress Notes Filed: 04/07/2023 7:48 AM Note Text: [facility] Bariatric Behavioral Services Progress Note April 06, 2023 Patient was a no-show. Netta Dillard, Ph.D. [facility]ologistThe [facility]10-10-2023 History and physical note* Ly, Shelly, DO - 03/03/2023 3:00 PM EDT HISTORY [...] MAC Additional Comments: None Shelly Parsons DO [facility] Work Phone: [phone] History and physical note* Shelly Parsons DO [...] None Shelly Parsons DO documented in this encounterLouis Stokes Cleveland [facility] Center10-10-2023 Nurse Note* Meghann Kwan RN [...] Meghann Escalante RN In Department: AMBULATORY SURGERY [facility]10-10-2023 Nurse Note* Meghann Kwan RN [...] In Department: AMBULATORY SURGERY documented in this encounterLouis Stokes Cleveland Va [facility] Center10-10-2023 Nurse Note* Bia Price RN [...] Bia Price RN In Department: AMBULATORY SURGERY [facility]10-04-2023 Miscellaneous Notes* Telephone Encounter - Mary Alice Clark Ma - 02/25/2023 4:26 PM EDT Lm to confirm procedure for 03-03-23 documented in this encounterLouis Stokes Cleveland Va Medical Center09-25-2023 NoteHNO ID: [id number] Author: Eugenia Chaudhary Service: ? Author Type: ? Type: Progress Notes Filed: 02/16/2023 1:25 PM Note Text: Sleep Study Check-In Documentation Date: February 16, 2023 Name: Saroj Membreno Comments: HST was returned in working order with all sleep questionnaires Eugenia ChaudharyThe [facility] Hospital09-25-2023 History of Present illness Narrative* Eugenia [...] Auth. provider HOME SLEEP APNEA TEST (HSAT) [[id number]] 01/19/23 Allie Larson APRN.[employer] Assoc. diagnoses: Pre-op evaluation [Z01.818], Class 3 [...] Torres - 02/10/2023 9:56 PM EDT Nomad# [id number] +GPS , Date shipped out: 02/11/23 SENT FEDEX DELIVERY - FEDEX RETURN Tracking mailout: [id number] [id number] Tracking return: [phone] [id number] * Katharina Blood - 02/01/2023 8:23 AM EDT February 01, 2023 An order has been received for Home Sleep Apnea Test (HSAT) from Allie Sales APRN.harley NGUYỄN. [facility] Staff. Visit prep complete. Comments :No The sleep study is scheduled for 02/21. Insurance: Payor: Ver[employer]pt MEDICAID / Plan: Vericept [facility] MEDICAID [facility] / Product Type: Medicaid / Payer/Plan Subscr Sex Relation Sub. Ins. ID Effective Group Num 1. ANTHEM MEDICA* ANNMARIE MEMBRENOTEN 01 Female Self [id number] [birth year] [address] Katharina Blood documented in this encounterLouis Stokes Cleveland Va Medical Center09-21-2023 NoteHNO ID: [id number] Author: Netta Dillard, PhD Service: ? Author Type: Psychologist Type: Progress Notes Filed: 02/18/2023 12:31 PM Note Text: [facility] Bariatric Behavioral Services Progress Note February 16, 2023 Patient cancelled today's appt. Netta Dillard, Ph.D. PsychologistThe Christ Hospital09-20-2023 NoteHNO ID: [id number] Author: Kelvin Gabriel III, PhD Service: ? Author Type: Physician Type: Progress Notes Filed: 02/16/2023 1:25 PM Note Text: February 11, 2023 Standing PSG Orders signed in the last 90 days None Future PSG Orders signed in the last 90 days Ordered Auth. provider HOME SLEEP APNEA TEST (HSAT) [[id number]] 01/19/23 Allie Larson APRN.[employer] Assoc. diagnoses: Pre-op evaluation [Z01.818], Class 3 [...] plan. Kelvin Gabriel III, PhD 12:15 PM, 02/11/2023[facility]09-20-20[facility] Nurse Note* Roya Lawler RN - 02/11/2023 8:33 AM EDT Ekg completed. Pt with no voiced complaints. Provider cc'd of completion. documented in this encounterLouis Stokes Cleveland Va Medical Center09-19-2023 NoteHNO ID: [id number] Author: Temo Torres Service: ? Author Type: ? Type: Progress Notes Filed: 02/16/2023 1:25 PM Note Text: Nomad# [id number] +GPS , Date shipped out: 02/11/23 SENT FEDEX DELIVERY - FEDEX RETURN Tracking mailout: [phone] Tracking return: [phone]09-19-2023 Instructions * Patient Instructions* Sasha Xie RD - 02/10/2023 1:39 PM EDT NUTRITION CARE PLAN Nutrition Intervention 02/04/2023: Modify type and amount of food consumed at meals and snacks Before your next visit, read the Nutritional Guidelines section of Your Guide to Surgery. https://my.[facility].org/departments/bariatric/patient-education/videos-gu ides#guides-tab 2. Drink 64 oz of fluids [...] Slim Fast Advanced Nutrition (20 grams protein) [place] Breakfast Essentials Light Start mixed with 1%/skim milk Atkins Protein Shake (15 gm protein version) Boost Glucose Control (16 grams protein) OWYN (20 gm protein and 180 calories version) 5. You need 79 grams of protein every day. Have a protein food with all meals and snacks. Get your protein from: lean meat, fish, eggs, low-fat dairy (cottage/ricotta cheese, georgian/light yogurt, cheese), nuts, nut butters, beans/legumes. 6. [...] Follow up: 2-4 weeks documented in this encounterLouis Stokes Cleveland Va Medical Center09-19-2023 Miscellaneous Notes* Telephone Encounter - Allie Larson APRN.CNP - 02/10/2023 11:32 AM EDT Noted, thank you * [facility] - [facility]10[facility]23 10:11 AM EDT Smoking Cessation Navigation Outcome of contact: Spoke with Intervention Chosen By Patient: Other Comments: Patient quit last week. [employer] Silver Solderer/Smoking Cessation Navigator: Cece Young [facility] FELICIA documented in this encounterLouis Stokes Cleveland Va Medical Center09-13-2023 NoteHNO ID: [id number] Author: Sasha Xie RD Service: ? Author Type: Registered Dietitian Type: Progress Notes Filed: 02/10/2023 1:40 PM Note Text: Nutrition Therapy Initial Assessment I have communicated my name and active licensure. The patient?s identity and physical location were verified at the time of this visit. Either the patient or their legal sales representative electric service has been informed of the risks and [...] Guidelines section of Your Guide to Surgery. https://my.[email or web address]/departments/bariatric/patient-education/vide os-guides#guides-tab 2. Drink 64 oz of fluids [...] Slim Fast Advanced Nutrition (20 grams protein) [place] Breakfast Essentials Light Start mixed with 1%/skim milk Atkins Protein Shake (15 gm protein version) Boost Glucose Control (16 grams protein) OWYN (20 gm protein and 180 calories version) 5. You need 79 grams of protein every day. Have a protein food with all meals and snacks. Get your protein from: lean meat, fish, eggs, low-fat dairy (cottage/ricotta cheese, georgian/light yogurt, cheese), nuts, nut butters, beans/legumes. 6. [...] guidelines for weight loss surgery and has Edgar Insurance therefore is required to complete 0 months of Nutrition Intervention for clearance for surgery. Today is visit #1 (Rojas 02/04/2023). Patient meets the National Institutes of Health guidelines for weight loss surgery however, needs to demonstrate consistent effort in making dietary changes before being cleared for surgery. (more content not included)...[facility] [id number] History of Present illness Narrative* Sasha Xie, LUZ - 02/04/2023 10:26 AM EDT Nutrition Therapy Initial Assessment I have communicated my name and active licensure. The patient s identity and physical location wereverified at the time of this visit. Either the patient or their legal sales representative electric service has been informed of the risks and [...] Guidelines section of Your Guide to Surgery. https://my.[facility].org/departments/bariatric/patient-education/videos-gu ides#guides-tab 2. Drink 64 oz of [...] Slim Fast Advanced Nutrition (20 grams protein) [place] Breakfast Essentials Light Start mixed with 1%/skim milk Atkins Protein Shake (15 gm protein version) Boost Glucose Control (16 grams protein) OWYN (20 gm protein and 180 calories version) 5. You need 79 grams of protein every day. Have a protein food with all meals and snacks. Get your protein from: lean meat, fish, eggs, low-fat dairy (cottage/ricotta cheese, georgian/light yogurt, cheese), nuts, nut butters, beans/legumes. 6. [...] guidelines for weight loss surgery and has [employer] Insurance therefore is required to complete 0 months of Nutrition Intervention for clearance for surgery. Today is visit #1 (Hondo 02/04/2023). Patient meets the National Institutes of [...] ,cheese, kaden, sour cream, taco sauce OR uzbek chicken w/ mexical rice and corn/green beans Snack - 3x week - pretzels and nutella Beverages - water 10-12 c/day, 2-3x week lemonade/vitamin water, chocolate milk Alcohol - none/occ Vitamins/Supplements - none Restaurants, pick-up, take-out: 3-4x week - Chick [employer], [place], [place] Activity: Activities of Daily Living: Active 50% of the day. 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: Healthy Plate, Lean Proteins, Nutrition Check List - Preparing for Bariatric Surgery READINESS TO LEARN Cognitive ability: Alert and oriented Motivation to learn: Interested Family support: Unable to assess - Family not present Instruction provided to: Patient Patient learns best by: Multiple Methods Factors affecting learning: None Physical limitations affecting learning: None Likelihood of Adherence: Moderate Referred/Supervised by: Jay VILLA Billing Type: Initial Assess/15 min 3 units SIGNATURE: Sasha Xie RD PATIENT NAME: Saroj Membreno DATE: February 04, 2023 TIME: 10:26 AM PAGER: xxxxx documented in this encounterLouis Stokes Cleveland Va Medical Center09-10-2023 NoteHNO ID: [id number] Author: Katharina Blood Service: ? Author Type: ? Type: Progress Notes Filed: 02/16/2023 1:25 PM Note Text: February 01, 2023 An order has been received for Home Sleep Apnea Test (HSAT) from Allie Sales APRN.harley NGUYỄN. [facility] Staff. Visit prep complete. Comments :No The sleep study is scheduled for 02/21. Insurance: Payor: ANTHEM MEDICAID / Plan: ANTHEM BCBS MEDICAID [facility] / Product Type: Medicaid / Payer/Plan Subscr Sex Relation Sub. Ins. ID Effective Group Num 1. RAZA HENNESSY* SAROJ MEMBRENO 01 Female Self [id number] [birth year] [address] [facility]09-08-2023 NoteHNO ID: [id number] Author: Cathie Ford RT(Bere) Service: Radiology Author Type: Market Research Coordinator Type: Progress Notes Filed: 01/30/2023 10:50 AM [...] BY: RT Enrrique(R) January 30, 2023 10:47 [id number] NoteHNO ID: [id number] Author: Norberto Malone MD Service: ? 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 Author Type: Nurse Practitioner Type: [...] Characterization of diet: Unstructured and skip meals. Ticket Collector of impaired eating habits:denies Eating Disorder no [...] Anxiety and depression Asthma No history of ID, COPD, +asthma, peptic ulcer disease, +GERD, dyslipidemia, [...] HEENT:: Supple, no adenopath (more content not included)...[facility]08-28-2023 Instructions* Patient Instructions* Allie Larson APRN.[employer] - 01/19/2023 9:16 AM EDT Darron Membreno , Thank you for completing your visit today and we welcome you to the surgical program. We are sure that you will still have some additional questions and encourage you to reach out to your care provider via Kon[employer] OR your Patient Navigator. Patient Navigators are assigned alphabetically by patient last name. The contact information for each Navigator is listed below. Last names A-E= KimberlyKely [email or web address] Last names F-L = Ricardo Last names M-R= [email or web address] [email or web address] Last names S-Z= Huber Additionally, you may [...] free to ask for a hard copy. https://my.[facility].org/-/scassets/files/org/bariatric/guides/bmiguideboo [email or web address]?la=en Once you complete all of the requirements (testing, consultations, diet, etc) from each provider, please call [phone] and select option #5 to initiate insurance approval. Also, if you have any questions along the way, we encourage you to join our weekly Navigation webinar every Thursday from 12:00 pm - 1:00 pm. This webinar will give you an opportunity to chat with your patient navigator and learn about your specific program requirements. The link for this webinar isbelow: [email or web address] Please note scheduling information It is important to keep track of your scheduled appointments to ensure successful completion of oursurgical program. Any missed appointments can further delay your pre-surgical work-up. [facility] does offer an opt-in option for getting text message appointment reminders. Please follow the link below if you would like to opt into this service. [email or web address]/appointment-[email or web address]#appoin [email or web address] As part of your surgical work up, [...] these tests. You may call your local [facility] to get an appointment. - Lab work- No appointment is needed for this, you may complete at any [facility] Laboratory.These are usually fasting labs, please be sure to fast (only water permitted) for 10-12 hours priorto the test. -Sleep Study- Please call [phone] or [phone] to get this appointment set up. -Sleep Medicine Consult- (Only needed if sleep study confirms sleep apnea) Please call [phone] to schedule an appointment. URINE TESTING AFTER [...] at least 1 month, go to any [facility] lab and submityour first nicotine [...] Any testing that is completed outside of [facility] will need faxed to [phone]. We look forward to working with you on this journey, Allie Larson APRN.GOPI documented in this encounterLouis Stokes Cleveland Va Medical Center08-28-2023 History of Present illness Narrative* [...] Characterization of diet: Unstructured and skip meals. Ticket Collector of impaired eating habits:denies Eating Disorder no [...] Anxiety and depression Asthma No history of ID, COPD, +asthma, peptic ulcer disease, +GERD, dyslipidemia, [...] at least 1 month, go to any [facility] lab and submityour first nicotine [...] and provide medicine clearance via letter in [employer]. I spent a total of 50 minutes on the date of the service which included preparing to see the patient, [id number] patient care, completing clinical documentation, obtaining and/or reviewing separately obtained history, counseling and educating the patient/family/caregiver, and ordering medications, tests, or procedures. Allie Larson, MSN, 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, SHANK RANDER-C [facility] Bariatric & Metabolic [place] [address] [place] [address] documented in this encounterLouis Stokes Cleveland Va Medical Center02-13-2023 Evaluation note* Encounter Date Diagnosis [...] further concerns Jun,Urinary frequency (ICD-10 - R35.0) [facility] Other 01-24-2023 Evaluation note* Encounter Date Diagnosis Assessment Notes Treatment Notes Treatment Clinical Notes May, Generalized anxiety disorder (IC D-10 - F41.1) [facility] Other 10-31-2022 Evaluation note* Encounter Date Diagnosis Assessment Notes Treatment Notes Treatment Clinical Notes Feb, Muscle pain (ICD-10 - M79.10) Feb,GAD (generalized anxiety disorder) (ICD-10 - F41.1) [facility] Other 09-05-2022 Evaluation note* Encounter Date Diagnosis Assessment Notes Treatment Notes Treatment Clinical Notes Jan, Herpes zoster without complicati on (ICD-10 - B02.9) Shingles home care material was printed Drink plenty fluids, get plenty of rest. Take the Valtrex as prescribed until gone. Follow-up with your family physician if no improvement in 2 to 3 days. [facility] Other 07-05-2022 Evaluation note* Encounter Date Diagnosis [...] to be seen. Also always know the [facility] Emergency Number is 24 hours a day available, even on holidays there is someone you can reach out to. Also we will check other labs yearly to screen for other health issues. Please remember we are a team and your opinion is very important in all of your healthcare decisions Nov,Insomnia, unspecified type (ICD-10 - G47.00)Increased dose as discussed. [facility] Other 06-20-2022 Evaluation note* Encounter Date Diagnosis Assessment Notes Treatment Notes Treatment Clinical Notes Oct, Generalized anxiety disorder (IC D-10 - F41.1) Increased medication as discussed. Oct,Herpes zoster without complication (ICD-10 - B02.9)Take medicatio as directed. Tylenol or motrin for pain [facility] Other 05-23-2022 Evaluation note* Encounter Date Diagnosis [...] to be seen. Also always know the [facility] Emergency Number is 24 hours a [...] medication can help with sleep and anxiety [facility] Other 03-27-2022 Evaluation note* Encounter Date Diagnosis Assessment Notes Treatment Notes Treatment Clinical Notes Jul, Muscle pain (ICD-10 - M79.10) [facility] Other 01-28-2022 Evaluation note* Encounter Date Diagnosis [...] Patient care instructions given in writting by [facility] document. [facility] Other 2022 Evaluation note* Encounter Date Diagnosis Assessment Notes Treatment Notes Treatment Clinical Notes May, PILO (generalized anxiety disorde r) (ICD-10 - F41.1) May,Generalized anxiety disorder (ICD-10 - F41.1) May,Muscle pain (ICD-10 - M79.10) [facility] Other 11-06-2021 Evaluation note* Encounter Date Diagnosis [...] Patient care instructions given in writting by [facility] document. [facility] Other 10-14-2021 Evaluation note* Encounter Date Diagnosis Assessment Notes Treatment Notes Treatment Clinical Notes Feb, Generalized anxiety disorder (IC D-10 - F41.1) resent script Feb,uncture wound without foreign body of lip, initial encounter (ICD- 10 - S01.531A) take medication as directed. Recommend taking out piercing and possibly using different type made of different metal [facility] Other 10-05-2021 Evaluation note* Encounter Date Diagnosis [...] to be seen. Also always know the [facility] Emergency Number is 24 hours a day available, even on holidays there is someone you can reach out to. Also we will check other labs yearly to screen for other health issues. Please remember we are a team and your opinion is very important in all of your healthcare decisions [employer] Other Evaluation noteNort [employer] Other Evaluation noteNo assessment information available [facility] Work Phone: Evaluation note* Diagnosis Pre-op evaluation- Primary Preoperative examination, unspecified Class 3 severe obesity with serious comorbidity and body mass index (BMI) of 40.0 to 44.9 in adult,unspecified obesity type (HCC) Vapes nicotine containing substance Marijuana smoker Cannabis abuse, unspecified documented in [facility] encounter [facility]* Diagnosis Body mass index (BMI) 40.0-44.9, adult (HCC)- Primary Dietary counseling and surveillance Dietary surveillance and counseling documented in this encounter [facility] note* Diagnosis Pre-op evaluation Preoperative examination, unspecified Class 3 severe obesity with serious comorbidity and body mass index (BMI) of 40.0 to 44.9 in adult,unspecified obesity type (HCC) documented in this encounter [facility] note* Diagnosis Pre-op evaluation Preoperative examination, unspecified Class 3 severe obesity with serious comorbidity and body mass index (BMI) of 40.0 to 44.9 in adult,unspecified obesity type (HCC) documented in this encounter [facility] note* Diagnosis Pre-op evaluation Preoperative examination, unspecified Class 3 severe obesity with serious comorbidity and body mass index (BMI) of 40.0 to 44.9 in adult,unspecified obesity type (HCC) documented in this encounter [facility] note* Diagnosis Onset Date Resolution Status Right otitis media noneactive [facility] Work Phone: evaluation note* Diagnosis Onset Date Resolution Status Right otitis media noneactiveRight ankle sprainacute [facility] Work Phone: Evaluation note* Diagnosis Onset Date Resolution Status Right ankle sprain acute [facility] Work Phone: evaluation note* Diagnosis Onset Date Resolution Status Right ankle sprain acuteAcute pharyngitisacute [facility] Work Phone: Evaluation note* Diagnosis Onset Date Resolution Status Right ankle sprain acuteAcute pharyngitisacuteVaginal dischargeacute [facility] Work Phone: Evaluation note* Diagnosis Class 3 severe obesity with serious comorbidity and body mass index (BMI) of 40.0 to 44.9 in adult,unspecified obesity type (HCC) documented in this encounter [facility] note* Diagnosis Well woman exam with routine gynecological exam Routine gynecological examination [facility] Diagnosis Encounter for supervision of normal first in first trimester ([facility]) Encounter for drug screening Encounter for screening for chromosomal anomalies ([facility]) Screening for genetic disease carrier status [facility]* Diagnosis Encounter for supervision of normal first in first trimester ([facility]) - Primary 13 weeks gestation of ([facility]) Screen for sexually transmitted diseases Screening examination for venereal disease Herpes simplex type 2 infection complicating , first trimester ([facility]) Severe obesity due to excess calories affecting in first trimester ([facility]) Screening for malignant neoplasm of cervix Screening for malignant neoplasm of the cervix Nausea and vomiting during ([facility]) [facility]* Diagnosis First trimester ([facility]) state, incidental 12 weeks gestation of ([facility]) [facility]* Diagnosis Vaginal discharge Leukorrhea, not specified as infective Second trimester ([facility]) state, incidental 15 weeks gestation of ([facility]) Nausea and vomiting in ([facility]) Unspecified vomiting of , unspecified as to episode of care [facility]* Diagnosis 15 weeks gestation of ([facility]) Second trimester ([facility]) state, incidental Blood pressure check Screening for hypertension Nonintractable headache, unspecified chronicity pattern, unspecified headache type Nausea Nausea alone documented in this encounter [facility]* Diagnosis Screening, , for anatomic survey ([facility]) Encounter for anatomic survey Second trimester ([facility]) state, incidental 19 weeks gestation of ([facility]) documented in this encounter [facility]* Diagnosis 23 weeks gestation of ([facility]) Marginal placenta, antepartum ([facility]) Second trimester ([facility]) state, incidental Diabetes mellitus screening Screening for diabetes mellitus documented in this encounter [facility] general Narrative - Reported* Type Description Date Medical History ADHD Medical HistorysyncopeMedical HistoryanxietyMedical HistorylupusMedical History back painMedical Historychronic depressionMedical HistoryPTSDSurgical History wisdom teethHospitalization HistoryNo Hospitalization history information [employer] Other History general Narrative - Reported* Type Description Date Medical History ADHD Medical HistorysyncopeMedical HistoryanxietyMedical HistorylupusMedical History back painMedical Historychronic depressionMedical HistoryPTSDSurgical History wisdom teethHospitalization HistoryNo know Hospitalization history [facility] [employer] Other History general Narrative - ReportedNortFox [facility] [employer] Other Reason for referral (narrative)* Diagnostic Procedure Only (Routine) - Pending ReviewSpecialtyDiagnoses / ProceduresReferred By ContactReferred To [facility] Diagnoses Pre-op evaluation Class 3 severe obesity with serious comorbidity and body mass index (BMI) of 40.0 to 44.9 in adult,unspecified obesity type (HCC) Procedures HOME SLEEP APNEA TEST (HSAT) SLEEP STD AIRFLOW HRT RATE&O2 SAT EFFORT UNATT Allie Larson APRN.[employer] [address] [place] [address] Neu[facility] [place] [address] [place] [address] Referral IDStatusReasonStart DateExpiration DateVisits RequestedVisits [id number] Review Auto-Generated Referral / * Diagnostic Procedure Only (Routine) - Pending ReviewSpecialtyDiagnoses / ProceduresReferred By ContactReferred To [facility] Diagnoses Pre-op evaluation Class 3 severe obesity with serious comorbidity and body mass index (BMI) of 40.0 to 44.9 in adult,unspecified obesity type (HCC) Procedures US ABD RIGHT UPPER QUADRANT US ABDOMINAL REAL TIME W/IMAGE LIMITED Allie Larson APRN.[employer] [address] [place] [phone] Us Imaging [place] [address] Referral IDStatusReasonStart DateExpiration DateVisits RequestedVisits [id number] Review Auto-Generated Referral / * Outpatient Procedure (Routine) - Pending ReviewSpecialtyDiagnoses / Procedures Referred By ContactReferred To [facility] Diagnoses Pre-op evaluation Class 3 severe obesity with serious comorbidity and body mass index (BMI) of 40.0 to 44.9 in adult,unspecified obesity type (HCC) Procedures ECG COMPLETE ECG ROUTINE ECG W/LEAST 12 LDS W/I&R Allie Larson APRN.[employer] [address] [place] [address] Heart [facility] [place] [address] [place] [id number] Referral IDStatusReasonStart DateExpiration DateVisits RequestedVisits [id number] Review Auto-Generated Referral [facility] for referral (narrative)* Diagnostic Procedure Only (Routine) - ClosedSpecialtyDiagnoses / ProceduresReferred By ContactReferred To [facility] Diagnoses Pre-op evaluation Class 3 severe obesity with serious comorbidity and body mass index (BMI) of 40.0 to 44.9 in adult,unspecified obesity type (HCC) Procedures US ABD RIGHT UPPER QUADRANT US ABDOMINAL REAL TIME W/IMAGE LIMITED Allie Larson APRN.[employer] [address] [place] [phone] Us Imaging [facility]95 Referral IDStatusReasonStward DateExpiration DateVisits RequestedVisits [id number] Auto-Generated Referral [facility] for referral (narrative)* Outpatient Procedure (Routine) - ClosedSpecialtyDiagnoses / ProceduresReferred By ContactReferred To [facility] Diagnoses Class 3 severe obesity with serious comorbidity and body mass index (BMI) of 40.0 to 44.9 in adult,unspecified obesity type (HCC) Procedures EGD DIAGNOSTIC ESOPHAGOGASTRODUODENOSCOPY [place] [address] [address] [facility] [address] [place] [id number] Digestive Disease [place] [address] [place] [address] Referral IDStatusReasonStart DateExpiration DateVisits RequestedVisits [id number] Auto-Generated Referral / [facility] for referral (narrative)No reason for referral information availableMiami [facility] Work Phone: [facility] Narrative* Diagnostic Procedure Only (Routine) - ClosedSpecialtyDiagnoses / ProceduresReferred By ContactReferred To [facility] Diagnoses Pre-op evaluation Class 3 severe obesity with serious comorbidity and body mass index (BMI) of 40.0 to 44.9 in adult,unspecified obesity type (HCC) Procedures US ABD RIGHT UPPER QUADRANT US ABDOMINAL REAL TIME W/IMAGE LIMITED Allie Larson, 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.[employer] [address] [place] [phone] Us Imaging [place] [address] Referral IDStatusReasonStart DateExpiration DateVisits RequestedVisits [id number] Auto-Generated Referral / [facility] for visit Narrative* Outpatient Procedure (Routine) - ClosedSpecialtyDiagnoses / ProceduresReferred By ContactReferred To Contact [facility] Diagnoses Class 3 severe obesity with serious comorbidity and body mass index (BMI) of 40.0 to 44.9 in adult,unspecified obesity type (HCC) Procedures EGD DIAGNOSTIC ESOPHAGOGASTRODUODENOSCOPY TRANS[place] [address] [address] [facility] [place] [address] [place] [address] Referral IDStatusReasonStart DateExpiration DateVisits RequestedVisits [id number] Auto-Generated Referral [facility] Chief Complaint and Reason for [...] UpSpecialtyDiagnoses / ProceduresReferred By Contact Referred To [facility] Diagnoses Pre-op evaluation Class 3 severe obesity with serious comorbidity and body mass index (BMI) of 40.0 to 44.9 in adult,unspecified obesity type (HCC) Procedures ECG COMPLETE ECG ROUTINE ECG W/LEAST 12 LDS W/I&R Allie Larson APRN.[employer] [address] [place] [address] [facility] [place] [address] [place] [address] Referral IDStatusReasonStart DateExpiration DateVisits RequestedVisits [id number] Auto-Generated Referral /[id number] Gen RMPReasonCommentsGynecologic Exam ReasonCommentsInitial VisitNurse VisitReasonCommentsRoutine VisitPt [...] September 16, 2023 End: September 15leo Enrique NP-Alvino ProviderActiveStart: September 16, 2023 End: September 16, 2023 Team Status: Inactive Member Role Status Dates NON STAFF Primary Care Provider Active Radhika Enrique NP-Jertenarmin ProviderActive Team Status: Inactive Member Role Status Dates NON STAFF Primary Care Provider Active DARCY WorthyP-BCEmergentracy ProviderActiveTeam MemberRelationship SpecialtyStart DateEnd Date Maria R Disla CNP [address] [place] [address] ReferringFamily Medicine01/07/23Team MemberRelationshipSpecialtyStart DateEnd Date Maria R Disla CNP [address] [place] [address] ReferringFacarney hospital Medicine01/07/23Team MemberRelationshipSpecialtyStart DateEnd Date Maria R DislaGOPI [address] [place] [address] ReferringAust[facility] Medicine01/07/23Team MemberRelationshipSpecialtyStart DateEnd Date NaifMaria R, [employer] [address] [place] [address] ReferringAusten [facility] Center Medicine01/07/23Team MemberRelationshipSpecialtyStart DateEnd Date Maria R Disla, GOPI [address] [place] [address] ReferringAusten [facility]gs Center Medicine01/07/23Team MemberRelationshipSpecialtyStart DateEnd Date NaifMaria R, [employer] [address] [place] [address] ReferringWell[facility]01/07/23Te MemberRelationshipSpecialtyStart DateEnd Date NaifMaria R, GOPI [address] [place] [address] ReferringAusten Riggs Center Medicine01/07/23 Team Status: Inactive Member Role Status Dates NON STAFF Primary Care Provider Active Start: November 13, 2023 End: November 12Tabitha Trejo ProviderActiveStart: November 13, 2023 End: November 13, 2023 Team Status: Active Member Role Status Dates NON STAFF Primary Care Provider Active Start: November 13, 2023 Tabitha Lewis ProviderActiveStart: November 13, 2023 Team Status: Inactive Member Role Status Dates NON STAFF Primary Care Provider Active Start: November 13, 2023 End: November 12mandharley Espinozab - UC , APRNAttending ProviderActiveStart: November 13, 2023 End: November 13, 2023 Team Status: Inactive Member Role Status Dates NON STAFF Primary Care Provider Active Start: January 20, 2024 End: January 19mandharley Banks Roque - UC , APRNAttending ProviderActiveStart: January 20, 2024 End: January 20, 2024 Team Status: Inactive Member Role Status Dates NON STAFF Primary Care Provider Active Start: February 02, 2024 End: February 02, 2024Glo Alas , CARMELONAttenarmin ProviderActiveStart: February 02, 2024 End: February 02, 2024 Team Status: Inactive Member Role Status Dates Glo Alas APRN Attending Provider Active Start: February 02, 2024 End: February 02, 2024Team MemberRelationshipSpecialtyStart DateEnd Date Kromer, Karly PCP - [facility]11/23/23Team MemberRelationshipSpecialtyStart DateEnd Date Kromer, Karly PCP - [facility]7Team MemberRelationshipSpecialtyStart DateEnd Date Kromer, Karly PCP - [facility]11/23/23Team MemberRelationshipSpecialtyStart DateEnd Date Kromer, Karly PCP - [facility]7Team MemberRelationshipSpecialtyStart DateEnd Date Kromer, Karly PCP - [facility]7Team MemberRelationshipSpecialtyStart DateEnd Date Kromer, Karly PCP - [facility]7Team MemberRelationshipSpecialtyStart DateEnd Date Kromer, Karly PCP - [facility]7Team MemberRelationshipSpecialtyStart DateEnd Date Kromer, Karly PCP - [facility]7/06/17 Team Status: Inactive Member Role Status Dates [...] End: February 07, 2025Team MemberRelationshipSpecialtyStart DateEnd Date Kromer, Karly PCP - [facility]/06/17Team MemberRelationshipSpecialtyStart DateEnd Date Kromer, Karly PCP - [facility]7/06/17Team MemberRelationshipSpecialtyStart DateEnd Date Kromer, Karly PCP - [facility]7/06/17Team MemberRelationshipSpecialtyStart DateEnd Date Kromer, Karly PCP - [facility]/06/17Team MemberRelationshipSpecialtyStart DateEnd Date Kromer, Karly PCP - [facility]7/06/17Team MemberRelationshipSpecialtyStart DateEnd Date Kromer, Karly PCP - [facility]7/24 Goals (unrecognized section and content) Goals may be documented in a n alternate section INFORMATION SOURCE (unrecogn ized section and content) DATE CREATED AUTHOR 09/27/2022 [facility] DATE CREATED AUTHOR AUTHOR'S ORGANIZ ATION 02/11/2023 [facility] DATE CREATED AUTHOR AUTHOR'S ORGANIZ ATION 03/13/2023 [facility] DATE CREATED AUTHOR AUTHOR'S ORGANIZ ATION 04/07/2023 [facility] DATE CREATED AUTHOR AUTHOR'S ORGANIZ ATION 03/25/2024 [facility] DATE CREATED AUTHOR AUTHOR'S ORGANIZ ATION 03/26/2024 [facility] DATE CREATED AUTHOR AUTHOR'S ORGANIZ ATION 03/28/2024 [facility] DATE CREATED AUTHOR AUTHOR'S ORGANIZ ATION 02/17/2025 [facility] DATE CREATED AUTHOR AUTHOR'S ORGANIZ ATION 04/06/2025 [facility] EPIC Source Comments (unrecognize d section and content) In the event this informatio n is protected by the Federal Confidentiality of Alcohol and Drug Abuse Patient Records regulations: The Federal rules restrict any use of the information to criminally investigate or prosecute any alcohol or drug abuse patient.[facility] CenterIn the event this information is protected by the Federal Confidentiality of Alcohol and Drug Abuse Patient Records regulations: The Federal rules restrict any use of the information to criminally investigate or prosecute any alcohol or drug abuse patient.[facility] CenterIn the event this information is protected by the Federal Confidentiality of Alcohol and Drug Abuse Patient Records regulations: The Federal rules restrict any use of the information to criminally investigate or prosecute any alcohol or drug abuse patient.[facility] CenterIn the event this information is protected by the Federal Confidentiality of Alcohol and Drug Abuse Patient Records regulations: The Federal rules restrict any use of the information to criminally investigate or prosecute any alcohol or drug abuse patient.[facility] CenterIn the event this information is protected by the Federal Confidentiality of Alcohol and Drug Abuse Patient Records regulations: The Federal rules restrict any use of the information to criminally investigate or prosecute any alcohol or drug abuse patient.[facility] CenterIn the event this information is protected by the Federal Confidentiality of Alcohol and Drug Abuse Patient Records regulations: The Federal rules restrict any use of the information to criminally investigate or prosecute any alcohol or drug abuse patient.[facility] CenterIn the event this information is protected by the Federal Confidentiality of Alcohol and Drug Abuse Patient Records regulations: The Federal rules restrict any use of the information to criminally investigate or prosecute any alcohol or drug abuse patient.[facility] CenterIn the event this information is protected by the Federal Confidentiality of Alcohol and Drug Abuse Patient Records regulations: The Federal rules restrict any use of the information to criminally investigate or prosecute any alcohol or drug abuse patient.[facility] CenterIn the event this information is protected by the Federal Confidentiality of Alcohol and Drug Abuse Patient Records regulations: The Federal rules restrict any use of the information to criminally investigate or prosecute any alcohol or drug abuse patient.[facility] FOR RECORDS PERTAINING TO PATIENTS [...] BE BASED ON THE PRIMARY CLINICAL RECORDS. [facility] [employer] [facility]. provides no warranty or guarantee of the accuracy or completeness of information in this document.
[2025-04-10 11:17] LABS: Hematocrit 37.2 % (36.0-48.0); Hemoglobin 12.7 g/dL (12.0-16.0); Immature Granulocytes Abs Auto 0.06 10^3/uL (0.00-0.03); Immature Granulocytes Pct Auto 0.6 % (0.0-0.5); Lymphocytes Absolute Auto 2.3 10^3/uL (1.2-3.8); Mean Corpuscular HGB Conc 34.1 g/dL (29.9-35.2); Mean Corpuscular Hemoglobin 30.0 pg (26.7-34.0); Mean Corpuscular Volume 87.7 fL (81.0-99.0); Platelet Count 226 10^3/uL (150-450); Red Blood Count 4.24 10^6/uL (4.20-5.40); White Blood Count 10.4 10^3/uL (4.0-11.0)
[2025-04-10 11:38] LABS: Glucose 1 Hour 124 mg/dL (<130)
== END 2025-04-10 09:54 | disposition home or self-care (01) ==
LOC: LAB 09:55
PROVIDERS: Visit Provider Physician Assistant
DX: Z13.1 Encounter for screening for diabetes mellitus (principal)
CPT/HCPCS: 36415; 82950; 85025

== ENCOUNTER 2025-05-08 14:06 | Observation (INO) | payer MEDICAID, SELFPAY ==
[2025-05-08 14:11] VITALS: BP 119/79; PULSE 82; TEMP 36.6; O2SAT 98; BMI 54.9
[2025-05-08 14:33] LABS: Glucose Urine UA NEGATIVE (NEGATIVE)
--- NOTE | 2025-05-08 14:41 | ED.GENADUL1 ---
HPI HPI - General Adult General Chief complaint: Abdominal Pain Stated complaint: CRAMPING PRESSURE 28 WEEKS Time Seen by Provider: 05/08/25 14:23 Source: patient and family Mode of arrival: walk-in Limitations: no limitations History of Present Illness HPI narrative: Patient is a 25-year-old female G1, P0 who is 28 weeks that presents with a few days of lower abdominal pressure and cramping. She states she has a low-lying placenta. She states this started about Thursday and she also started to notice her urine was darker. She was unsure if this was from a UTI or her magnesium supplement. She also feels like she has urinary frequency greater than her baseline frequency. She feels she is also having some retention. She denies any vaginal fluid leakage or bleeding/spotting. She is having normal bowel movements for her. Her OB is Dr. Guzman, she did call their office and they recommended being seen in the ER. Related Data Home Medications ?Medication ?Instructions ?Recorded ?Confirmed trazodone 50 mg tablet 50 mg PO QPM PRN sleep 01/20/24 05/08/25 magnesium oxide 400 mg (241.3 mg 400 mg PO DAILY 02/15/25 05/08/25 magnesium) tablet vit no.95-ferrous 1 tab PO DAILY 02/15/25 05/08/25 fumarate 28 mg-folic acid 800 mcg tablet () Allergies Allergy/AdvReac Type Severity Reaction Status Date / Time No Known Drug Allergies Allergy Verified 05/08/25 14:14 Opioid HPI Opioid Management Most Recent Opioid Data: Last Pain Scale 10 02/15/25, 17:50 Review of Systems ROS Status of ROS 10 or more systems reviewed and unremarkable except as noted in history and below PFSH PFSH Social History Little interest or pleasure in doing things: not at all Feeling down, depressed, or hopeless: not at all Exam Narrative Exam Narrative: General: No distress, age-appropriate Skin: Warm, dry, no pallor. No rash. Head: Normocephalic, atraumatic. Neck: Supple, non-tender. Eye: Pupils are equal, round and EOMI. No scleral icterus. Ears, Nose, Mouth, and Throat: No nasal mucosal hypertrophy. Oral mucosa is moist, no posterior oropharynx erythema, uvula is mid-line Cardiovascular: Regular Rate and Rhythm without murmur, gallop or rub. Respiratory: No accessory muscle use or respiratory distress. Lungs are clear to auscultation, no wheezing, rales or rhonchi Musculoskeletal: Full ROM of all extremities, no calf or popliteal tenderness GI: Abdomen is soft, non-distended, gravid, non tender to palpation. No masses appreciated. No rebound, guarding, or rigidity noted. Neurological: A&O x4. No cranial nerve dysfunction observed. No truncal ataxia. Moves all extremities. Sensation intact. Psychiatric: Cooperative and interactive. Normal mood and affect. Constitutional Vital Signs, click to edit/add: Last Vital Signs Temp 98 F 05/08/25 14:11 Pulse 78 05/08/25 14:59 Resp 18 05/08/25 14:11 BP 94/55 05/08/25 14:59 Pulse Ox 98 05/08/25 14:11 O2 Del Method Room Air 05/08/25 14:11 Documenting provider has reviewed patient's vital signs: yes Course Vital Signs Vital signs: Vital Signs Temperature 98 F 05/08/25 14:11 Pulse Rate 82 05/08/25 14:11 Respiratory Rate 18 05/08/25 14:11 Blood Pressure 119/79 05/08/25 14:11 Pulse Oximetry 98 05/08/25 14:11 Oxygen Delivery Method Room Air 05/08/25 14:11 Temperature 98 F 05/08/25 14:11 Pulse Rate 78 05/08/25 14:59 Respiratory Rate 18 05/08/25 14:11 Blood Pressure 94/55 05/08/25 14:59 Pulse Oximetry 98 05/08/25 14:11 Oxygen Delivery Method Room Air 05/08/25 14:11 Medical Decision Making [facility] Narrative Medical decision making narrative: Patient is a 25-year-old at 28 weeks gestation presenting with several days of lower abdominal pressure, cramping, urinary frequency, retention, and darker urine. She denies vaginal bleeding or fluid leakage. She has a known low-lying placenta. Vital signs are stable (BP 118/79, HR 78, afebrile), and heart tones are reassuring at 145 bpm. Urinalysis shows no proteinuria, trace ketones, negative nitrites, and negative leukocyte esterase, with no clear evidence of urinary tract infection. No pain with palpation of the abdomen or flank. Due to ongoing abdominal cramping in the setting of a low-lying placenta, and to ensure appropriate obstetric evaluation, the patient was referred to OB (FB) for further assessment and monitoring. Patient's clinical status and vital signs remained stable while in the ER. Patient transported to second floor, OB, by RN. Differential Diagnosis Differential Diagnosis: UTI, labor Lab Data Lab results reviewed: Yes I reviewed the patient's lab results Labs: Lab Results 05/08/25 Range/Units 14:16 Urine Color Yellow (YELLOW) Urine Clarity Clear (CLEAR) Urine pH 6.0 (5.0-9.0) Ur Specific [place] 1.025 (1.005-1.025) Urine Protein Trace (NEG/TRACE) mg/dL Urine Glucose (UA) Negative (NEGATIVE) mg/dL Urine Ketones Trace A (NEGATIVE) mg/dL Urine Occult Blood Negative (NEGATIVE) Urine Nitrite Negative (NEGATIVE) Urine Bilirubin Negative (NEGATIVE) Urine Urobilinogen 0.2 (0.2-1.0) EU/dL Ur Leukocyte Esterase Negative (NEGATIVE) Discharge Plan Discharge Chief Complaint: Abdominal Pain Clinical Impression: Abdominal cramping affecting Patient Disposition: Admitted to [facility], OBS Time of Disposition Decision: 14:39 Mode of Transportation: Other Discharge Date/Time: 05/08/25 14:40
[2025-05-08 14:59] VITALS: BP 94/55; PULSE 78
--- NOTE | 2025-05-08 15:11 | US_ITS ---
[place] [id number] Patient Name: SAROJ MEMBRENO MRN: [id number] date: 2000 Sex: F Assigned Patient Location: [facility] Current Patient Location: Accession/Order Number: [id number] Exam Date: 05/08/2025 15:12 Report Date: 05/08/2025 16:03 At the request of: ABHISHEK COX DO Procedure: US OB cervical length Cervical length ultrasound. Reason for exam: Cramping. FINDINGS: Cervical length measures 3.74 cm no evidence of funneling. heart rate is 149 bpm. US/US OB cervical length Impression: Normal cervical length. Impression dictated by: Burt Mendenhall Jr., DAnaOAna 05/08/2025 4:03 PM Dictation Location: [facility] Electronically authenticated by: [id number] Date: 05/08/2025 16:03
== END 2025-05-08 15:55 | disposition home or self-care (01) ==
LOC: ER 14:41 → FBC 14:51
PROVIDERS: Physician Assistant; Admitting Provider Obstetrics & Gynecology; Emergency Provider Emergency Medicine; Visit Provider Obstetrics & Gynecology
DX: O99.891 Other specified diseases and conditions complicating pregnancy (principal); R10.9 Unspecified abdominal pain; O44.43 Low lying placenta NOS or without hemorrhage, third trimester; Z3A.28 28 weeks gestation of pregnancy
CPT/HCPCS: 76817; 81003; 99285; G0378